=== PATIENT | female | born 1980 | race Caucasian/White ===

== ENCOUNTER 2017-06-10 17:00 | Emergency (ER) | payer OTHER ==
[~2017-06-10] VITALS: Ht 167.6 cm; Wt 63.5 kg
[~2017-06-10 17:00] MED LIST: ACET325 PO; ALBU90OI INH; ALBU90OI6 INH; ALPR1 PO; AMOCLA875 PO; AMOX875 PO; ARIP10 PO; AZIT500 PO; Amoxicillin875 MG PO; Bactrim Ds Tab1 EACH PO; CEPH500 PO; CLON.1 PO; CLON.5 PO; CLON1 PO; CRUTCH3 USE; CYMBALTA; Cleocin HCl150 MG PO; DIAZ2 PO; DIPH50 PO; DULO30 PO; GABA100 PO; GABA600 PO; GABA800 PO; GABAPENTIN PO; HYDHCL25 PO; Humalog100 UNIT/3; INSDET100 SC; INSDET100 SUBQ; INSLI100I SUBQ; INSR10I SUBQ; INSU100I6; INSULANI SUBQ; INSULANPEN SC; INSULISPEN SUBQ; Ibuprofen Ib200 MG PO; Klonopin0.5 MG PO; LISI5 PO; LOPE2C PO; Lisinopril2.5 MG; METF500 PO; METO5A PO; METPRE4DP PO; Mucinex600 MG PO; NAPR500 PO; NICO21TP TOP; Novolog Fl100 UNIT/1; Novolog Fl100 UNIT/1 SC; ONDA4 PO; Oxycodone-Apap1 EAC3 PO; PROM25 PO; Percocet 5-3251 EACH PO; Prednisone20 MG PO; Pyridium100 MG PO; TRAM50 PO; Ultram50 MG PO; Valium5 MG PO; Zofran Odt4 MG SL
[2017-06-10 17:35] LABS: Calcium, Ionized (POC) 1.18 mmol/L (1.10-1.46); Chloride (POC) 99 mmol/L (98-108); Creatinine (POC) 0.4 mg/dL (0.6-1.0); Glucose (ISTAT POC) 369 mg/dL (70-99); Hemoglobin (POC) 11.9 g/dL (12.0-16.0); Potassium (POC) 4.5 mmol/L (3.5-5.5); Sodium (POC) 135 mmol/L (135-148); Total CO2 (POC) 27 mmol/L (21-32)
[2018-05-07] MEDS ORDERED: Celexa10 MG PO (10:38)
[2018-05-07] MEDS ORDERED: GI COCKTAIL PO (11:13)
[2018-05-07] MEDS ORDERED: Novolog Fl100 UNIT/1 SC (11:15)
[2018-05-07] MEDS ORDERED: PANT40 PO (11:16)
== END 2017-06-10 18:44 | disposition home or self-care (01) ==
LOC: ER 17:00
PROVIDERS: Emergency Medicine
DX: G40.909 Epilepsy, unspecified, not intractable, without status epilepticus (principal); Z88.5 Allergy status to narcotic agent; Z79.899 Other long term (current) drug therapy; Z79.2 Long term (current) use of antibiotics; Z79.4 Long term (current) use of insulin; E10.40 Type 1 diabetes mellitus with diabetic neuropathy, unspecified; J45.909 Unspecified asthma, uncomplicated; Z87.891 Personal history of nicotine dependence
CPT/HCPCS: 80047; 81000; 81025; 82947; 85014; 96361; 96374; 99283; J2405

== ENCOUNTER 2017-07-12 16:24 | Inpatient (IN) | payer OTHER ==
[~2017-07-12] VITALS: Ht 172.7 cm; Wt 63.6 kg
[2017-07-12 17:40] LABS: Calcium, Ionized (POC) 1.12 mmol/L (1.10-1.46); Chloride (POC) 104 mmol/L (98-108); Creatinine (POC) 0.4 mg/dL (0.6-1.0); Glucose (ISTAT POC) 691 mg/dL (70-99); Hemoglobin (POC) 18.7 g/dL (12.0-16.0); Potassium (POC) 4.8 mmol/L (3.5-5.5); Sodium (POC) 128 mmol/L (135-148); Total CO2 (POC) 7 mmol/L (21-32)
[2017-07-12 17:50] LABS: EOSINOPHILS ABSOLUTE AUTO 0.06 K/mm3 (0.00-0.68); EOSINOPHILS PERCENT AUTO 0 % (0-6); Hematocrit 51.6 % (33.0-51.0); Hemoglobin 16.1 g/dL (11.5-16.0); IMMATURE GRAN ABSOLUTE AUTO 1.87 K/mm3 (0.00-0.10); IMMATURE GRAN PERCENT AUTO 6 % (0-1); LYMPHOCYTES ABSOLUTE AUTO 5.35 K/mm3 (0.84-5.20); LYMPHOCYTES PERCENT AUTO 16 % (21-46); MONOCYTES ABSOLUTE AUTO 2.98 K/mm3 (0.16-1.47); MONOCYTES PERCENT AUTO 9 % (4-13); Mean Corpuscular HGB 30.3 pg (26.0-34.0); Mean Corpuscular HGB Conc 31.2 g/dL (31.5-36.5); Mean Corpuscular Volume 97 fL (80-100); Mean Platelet Volume 11.1 fL (9.1-12.4); NEUTROPHILS ABSOLUTE AUTO 23.45 K/mm3 (1.96-9.15); NEUTROPHILS PERCENT AUTO 69 % (41-73); Platelet Count 348 K/mm3 (150-400); RDW Standard Deviation 43.6 fL (35.1-46.3); Red Blood Cell Count 5.31 M/mm3 (3.80-5.20)
[2017-07-12 17:52] LABS: BASOPHILS ABSOLUTE AUTO 0.09 K/mm3 (0.00-0.23); BASOPHILS PERCENT AUTO 0 % (0-2)
[2017-07-12 18:00] LABS: Source, Urine Clean Catch
[2017-07-12 18:04] LABS: Appearance, Urine Clear (Clear); Bilirubin, Urine Neg (Neg); Blood, Urine 2+ (Neg); Color, Urine Yellow (P-Yellow); Glucose Qualitative, Urine 4+ (Neg); Ketones, Urine 4+ (Neg); Leukocyte Esterase, Urine Neg (Neg); Nitrite, Urine Neg (Neg); Protein, Urine 2+ (Neg); Urobilinogen, Urine NORM (Normal)
[2017-07-12 18:09] LABS: BAND PERCENT MAN 4 % (0-8); BASOPHILS PERCENT MAN 0 % (0-2); EOSINOPHILS PERCENT MAN 0 % (0-6); LYMPHOCYTES ABSOLUTE MAN 6.42 K/mm3 (0.84-5.20); LYMPHOCYTES PERCENT MAN 19 % (21-46); METAMYELOCYTE ABSOLUTE MAN 0.33 K/mm3 (0.00-0.00); METAMYELOCYTE PERCENT MAN 1 % (0-0); MONOCYTES ABSOLUTE MAN 3.04 K/mm3 (0.16-1.47); MONOCYTES PERCENT MAN 9 % (4-13); NEUTROPHILS ABSOLUTE MAN 23.99 K/mm3 (1.96-9.15); SEG NEUTROPHILS PERCENT MAN 67 % (41-73); TOTAL CELLS COUNTED 100
[2017-07-12 18:12] LABS: Bacteria Few /hpf; Red Blood Cells, Urine 0-2 /hpf (0-2); Squamous Epithelial Cells Not Seen /hpf (Few); White Blood Cells, Urine 0-2 /hpf (0-5)
[2017-07-12 18:33] LABS: Alanine Aminotransfer (ALT/SGP 35 U/L (12-78); Albumin, Blood 4.1 g/dL (3.4-5.0); Alk Phos 138 U/L (50-136); Anion Gap 29 mmol/L (6-16); Aspartate Aminotrans (AST/SGOT 24 U/L (12-37); Beta-hydroxybutyrate 97.2 mg/dL (0.2-2.8); Bilirubin, Total 0.3 mg/dL (0.1-1.0); Blood Urea Nitrogen 25 mg/dL (8-24); Bun/Creatinine Ratio 44.3 (12.0-20.0); CO2, Blood 3 mmol/L (21-32); Calcium, Blood 8.2 mg/dL (8.5-10.1); Chloride, Blood 95 mmol/L (98-108); Creatinine, Blood 0.56 mg/dL (0.40-1.00); Globulin, Blood 4.3 g/dL (2.2-4.0); Glomerular Filtration Rate >60 (60-); Glucose, Blood 726 mg/dL (70-99); Phosphorus, Blood 4.5 mg/dL (2.5-4.9); Potassium, Blood 4.7 mmol/L (3.5-5.5); Sodium, Blood 127 mmol/L (136-145); Total Protein, Blood 8.4 g/dL (6.4-8.2)
[2017-07-12 20:00] LABS: Glucose (ISTAT POC) 555 mg/dL (70-99)
[2017-07-12 20:22] LABS: Influenza A Negative (NEGATIVE); Influenza B Negative (NEGATIVE)
[2017-07-12 20:28] LABS: Anion Gap 25 mmol/L (6-16); Blood Urea Nitrogen 24 mg/dL (8-24); CO2, Blood 2 mmol/L (21-32); Calcium, Blood 7.4 mg/dL (8.5-10.1); Chloride, Blood 103 mmol/L (98-108); Creatinine, Blood 0.45 mg/dL (0.40-1.00); Glomerular Filtration Rate >60 (60-); Glucose, Blood 536 mg/dL (70-99); Potassium, Blood 5.1 mmol/L (3.5-5.5); Sodium, Blood 130 mmol/L (136-145)
[2017-07-12 20:46] LABS: U Amphetamine Screen Not Detected; U Barbituate Screen Not Detected; U Benzodiazapine Screen Not Detected; U Buprenorphine Screen Not Detected; U Cannabinoids Screen Not Detected; U Cocaine Screen Not Detected; U Methadone Screen Not Detected; U Methamphetamine Screen Not Detected; U Opiates Screen Not Detected; U Oxycodone Screen Not Detected; U Phencyclidine Screen Not Detected; U Propoxyphene Screen Not Detected
[2017-07-13 00:29] LABS: Anion Gap 18 mmol/L (6-16); Blood Urea Nitrogen 19 mg/dL (8-24); Bun/Creatinine Ratio 48.3 (12.0-20.0); CO2, Blood 7 mmol/L (21-32); Calcium, Blood 6.4 mg/dL (8.5-10.1); Chloride, Blood 111 mmol/L (98-108); Creatinine, Blood 0.39 mg/dL (0.40-1.00); Glomerular Filtration Rate >60 (60-); Glucose, Blood 257 mg/dL (70-99); Sodium, Blood 136 mmol/L (136-145)
[2017-07-13 02:38] LABS: Anion Gap 17 mmol/L (6-16); Blood Urea Nitrogen 15 mg/dL (8-24); CO2, Blood 9 mmol/L (21-32); Calcium, Blood 6.6 mg/dL (8.5-10.1); Chloride, Blood 111 mmol/L (98-108); Creatinine, Blood 0.37 mg/dL (0.40-1.00); Glomerular Filtration Rate >60 (60-); Glucose, Blood 261 mg/dL (70-99); Potassium, Blood 3.7 mmol/L (3.5-5.5); Sodium, Blood 137 mmol/L (136-145)
[2017-07-13 04:40] LABS: Base Excess Venous -16.1 mmol/L; Bicarbonate Venous 13.4 mmol/L (24.0-30.0); PCO2 Venous 25.6 mmHg (38-42); PO2 Venous 47.2 mmHg (38-42); pH Blood Venous 7.25 (7.34-7.37)
[2017-07-13 04:44] LABS: BASOPHILS ABSOLUTE AUTO 0.09 K/mm3 (0.00-0.23); BASOPHILS PERCENT AUTO 0 % (0-2); EOSINOPHILS ABSOLUTE AUTO 0.02 K/mm3 (0.00-0.68); EOSINOPHILS PERCENT AUTO 0 % (0-6); Hematocrit 35.3 % (33.0-51.0); Hemoglobin 12.2 g/dL (11.5-16.0); IMMATURE GRAN ABSOLUTE AUTO 0.63 K/mm3 (0.00-0.10); IMMATURE GRAN PERCENT AUTO 3 % (0-1); LYMPHOCYTES ABSOLUTE AUTO 3.01 K/mm3 (0.84-5.20); LYMPHOCYTES PERCENT AUTO 15 % (21-46); MONOCYTES ABSOLUTE AUTO 2.02 K/mm3 (0.16-1.47); MONOCYTES PERCENT AUTO 10 % (4-13); Mean Corpuscular HGB 30.7 pg (26.0-34.0); Mean Corpuscular HGB Conc 34.6 g/dL (31.5-36.5); Mean Platelet Volume 10.4 fL (9.1-12.4); NEUTROPHILS ABSOLUTE AUTO 15.06 K/mm3 (1.96-9.15); NEUTROPHILS PERCENT AUTO 72 % (41-73); Platelet Count 253 K/mm3 (150-400); RDW Coefficient Variation 11.6 % (11.7-14.2); RDW Standard Deviation 37.6 fL (35.1-46.3); Red Blood Cell Count 3.97 M/mm3 (3.80-5.20); White Blood Cell Count 20.83 K/mm3 (4.00-11.30)
[2017-07-13 04:59] LABS: Mean Corpuscular Volume 89 fL (80-100)
[2017-07-13 05:07] LABS: Amylase, Blood 16 U/L (25-115); Anion Gap 13 mmol/L (6-16); Blood Urea Nitrogen 12 mg/dL (8-24); Bun/Creatinine Ratio 29.8 (12.0-20.0); CO2, Blood 13 mmol/L (21-32); Calcium, Blood 6.6 mg/dL (8.5-10.1); Chloride, Blood 111 mmol/L (98-108); Glomerular Filtration Rate >60 (60-); Glucose, Blood 262 mg/dL (70-99); Magnesium, Blood 1.4 mg/dL (1.6-2.4); Potassium, Blood 3.3 mmol/L (3.5-5.5); Sodium, Blood 137 mmol/L (136-145)
[2017-07-13 05:13] LABS: Beta-hydroxybutyrate 21.6 mg/dL (0.2-2.8)
[2017-07-13 05:48] LABS: Osmolality, Serum 294 mos/KG (275-300)
[2017-07-13 05:55] LABS: Phosphorus, Blood 0.6 mg/dL (2.5-4.9)
[2017-07-13 06:36] LABS: Anion Gap 11 mmol/L (6-16); Blood Urea Nitrogen 12 mg/dL (8-24); Bun/Creatinine Ratio 30.6 (12.0-20.0); CO2, Blood 14 mmol/L (21-32); Calcium, Blood 6.9 mg/dL (8.5-10.1); Chloride, Blood 112 mmol/L (98-108); Creatinine, Blood 0.39 mg/dL (0.40-1.00); Glomerular Filtration Rate >60 (60-); Glucose, Blood 243 mg/dL (70-99); Potassium, Blood 3.1 mmol/L (3.5-5.5); Sodium, Blood 137 mmol/L (136-145)
[2017-07-13 09:03] LABS: Anion Gap 10 mmol/L (6-16); Blood Urea Nitrogen 11 mg/dL (8-24); Bun/Creatinine Ratio 32.1 (12.0-20.0); CO2, Blood 16 mmol/L (21-32); Calcium, Blood 7.1 mg/dL (8.5-10.1); Chloride, Blood 112 mmol/L (98-108); Creatinine, Blood 0.34 mg/dL (0.40-1.00); Glomerular Filtration Rate >60 (60-); Glucose, Blood 209 mg/dL (70-99); Potassium, Blood 2.9 mmol/L (3.5-5.5); Sodium, Blood 138 mmol/L (136-145)
[2017-07-13 12:49] LABS: Ketones, Urine 3+ (Neg)
[2017-07-13 16:56] LABS: Anion Gap 9 mmol/L (6-16); Blood Urea Nitrogen 8 mg/dL (8-24); Bun/Creatinine Ratio 23.1 (12.0-20.0); CO2, Blood 17 mmol/L (21-32); Calcium, Blood 7.4 mg/dL (8.5-10.1); Chloride, Blood 115 mmol/L (98-108); Creatinine, Blood 0.35 mg/dL (0.40-1.00); Glomerular Filtration Rate >60 (60-); Glucose, Blood 247 mg/dL (70-99); Potassium, Blood 3.4 mmol/L (3.5-5.5); Sodium, Blood 141 mmol/L (136-145)
[2017-07-14 06:17] LABS: Anion Gap 6 mmol/L (6-16); Blood Urea Nitrogen 5 mg/dL (8-24); Bun/Creatinine Ratio 12.9 (12.0-20.0); CO2, Blood 24 mmol/L (21-32); Calcium, Blood 7.9 mg/dL (8.5-10.1); Chloride, Blood 114 mmol/L (98-108); Creatinine, Blood 0.39 mg/dL (0.40-1.00); Glomerular Filtration Rate >60 (60-); Glucose, Blood 99 mg/dL (70-99); Magnesium, Blood 1.8 mg/dL (1.6-2.4); Phosphorus, Blood 1.5 mg/dL (2.5-4.9); Potassium, Blood 2.7 mmol/L (3.5-5.5); Sodium, Blood 144 mmol/L (136-145)
[2017-07-15 05:48] LABS: Magnesium, Blood 1.7 mg/dL (1.6-2.4)
[2017-07-15 05:52] LABS: Albumin, Blood 2.6 g/dL (3.4-5.0); Anion Gap 7 mmol/L (6-16); Blood Urea Nitrogen 6 mg/dL (8-24); Bun/Creatinine Ratio 15.8 (12.0-20.0); CO2, Blood 28 mmol/L (21-32); Calcium, Blood 8.3 mg/dL (8.5-10.1); Chloride, Blood 108 mmol/L (98-108); Creatinine, Blood 0.38 mg/dL (0.40-1.00); Glomerular Filtration Rate >60 (60-); Phosphorus, Blood 2.5 mg/dL (2.5-4.9); Potassium, Blood 2.7 mmol/L (3.5-5.5); Sodium, Blood 143 mmol/L (136-145)
[2017-07-15 05:55] LABS: Glucose, Blood 48 mg/dL (70-99)
[2017-07-15] MEDS ORDERED: BASAGLAR K100 UNIT/1 SC (11:52)
[2018-05-07] MEDS ORDERED: Celexa10 MG PO (10:38)
[2018-05-07] MEDS ORDERED: GI COCKTAIL PO (11:13)
[2018-05-07] MEDS ORDERED: Novolog Fl100 UNIT/1 SC (11:15)
[2018-05-07] MEDS ORDERED: PANT40 PO (11:16)
== END 2017-07-15 22:03 | disposition left against medical advice (07) | DRG 871 ==
LOC: ER 16:24 → ICUE 18:12 → ICUW 18:12 → ICUE 19:22 → MEDS 19:37 → ICUE 07-13 01:42 → MEDS 07-14 02:05
PROVIDERS: Emergency Medicine; Family Medicine; Internal Medicine; Physician Assistant
PROC: 02HV33Z Insertion of Infusion Device into Superior Vena Cava, Percutaneous Approach (ICD-10-PCS; principal; 2017-07-12)
DX: A41.9 Sepsis, unspecified organism (principal); E10.10 Type 1 diabetes mellitus with ketoacidosis without coma; E10.40 Type 1 diabetes mellitus with diabetic neuropathy, unspecified; E83.39 Other disorders of phosphorus metabolism; E87.1 Hypo-osmolality and hyponatremia; R65.20 Severe sepsis without septic shock; F41.9 Anxiety disorder, unspecified; E86.0 Dehydration; E87.6 Hypokalemia; E83.42 Hypomagnesemia; G25.81 Restless legs syndrome; I10 Essential (primary) hypertension; F63.9 Impulse disorder, unspecified; F17.200 Nicotine dependence, unspecified, uncomplicated; Z86.14 Personal history of Methicillin resistant Staphylococcus aureus infection; Z88.5 Allergy status to narcotic agent; Z79.4 Long term (current) use of insulin; Z79.899 Other long term (current) drug therapy
CPT/HCPCS: 36415; 36556; 71045; 80047; 80048; 80053; 80069; 81001; 81003; 81025; 82010; 82150; 82803; 82947; 83036; 83690; 83735; 83930; 84100; 84145; 85014; 85025; 87077; 87081; 87086; 87804; 93005; 93010; 96374; 99285; C1751; J1650; J1815; J2001; J2060; J2405; J2550; J3475; J3480; J7030; J7040; J7042; J7060

== ENCOUNTER 2018-01-22 10:52 | Observation (INO) | payer OTHER ==
[~2018-01-22] VITALS: Ht 160 cm; Wt 66.2 kg
[~2018-01-22 10:52] MED LIST changes: +BASAGLAR K100 UNIT/1 SC
[2018-01-22 11:33] LABS: BASOPHILS ABSOLUTE AUTO 0.06 K/mm3 (0.00-0.23); BASOPHILS PERCENT AUTO 1 % (0-2); EOSINOPHILS ABSOLUTE AUTO 0.11 K/mm3 (0.00-0.68); EOSINOPHILS PERCENT AUTO 1 % (0-6); Hematocrit 51.7 % (33.0-51.0); IMMATURE GRAN ABSOLUTE AUTO 0.03 K/mm3 (0.00-0.10); IMMATURE GRAN PERCENT AUTO 0 % (0-1); LYMPHOCYTES ABSOLUTE AUTO 4.83 K/mm3 (0.84-5.20); LYMPHOCYTES PERCENT AUTO 46 % (21-46); MONOCYTES ABSOLUTE AUTO 0.63 K/mm3 (0.16-1.47); MONOCYTES PERCENT AUTO 6 % (4-13); Mean Corpuscular HGB 29.8 pg (26.0-34.0); Mean Corpuscular HGB Conc 32.9 g/dL (31.5-36.5); Mean Corpuscular Volume 91 fL (80-100); Mean Platelet Volume 11.4 fL (9.1-12.4); NEUTROPHILS PERCENT AUTO 46 % (41-73); Platelet Count 337 K/mm3 (150-400); RDW Coefficient Variation 12.2 % (11.7-14.2); RDW Standard Deviation 40.8 fL (35.1-46.3); White Blood Cell Count 10.56 K/mm3 (4.00-11.30)
[2018-01-22 12:15] LABS: Base Excess Venous -8.2 mmol/L; Bicarbonate Venous 18.2 mmol/L (24.0-30.0); PO2 Venous 177 mmHg (38-42)
[2018-01-22 12:17] LABS: pH Blood Venous 7.26 (7.34-7.37)
[2018-01-22 13:00] LABS: Chloride (POC) 99 mmol/L (98-108); Creatinine (POC) 0.3 mg/dL (0.6-1.0); Glucose (ISTAT POC) 439 mg/dL (70-99); Hemoglobin (POC) 15.6 g/dL (12.0-16.0); Sodium (POC) 132 mmol/L (135-148); Total CO2 (POC) 20 mmol/L (21-32)
[2018-01-22 13:13] LABS: Source, Urine Clean Catch
[2018-01-22 13:17] LABS: Bilirubin, Urine Neg (Neg); Blood, Urine Neg (Neg); Glucose Qualitative, Urine 4+ (Neg); Ketones, Urine 3+ (Neg); Leukocyte Esterase, Urine Neg (Neg); Nitrite, Urine Neg (Neg); Protein, Urine Neg (Neg); Urobilinogen, Urine NORM (Normal)
[2018-01-22 13:23] LABS: Appearance, Urine Clear (Clear); Color, Urine Yellow (P-Yellow)
[2018-01-22 13:37] LABS: U Amphetamine Screen Not Detected; U Barbituate Screen Not Detected; U Benzodiazapine Screen Not Detected; U Buprenorphine Screen Not Detected; U Cannabinoids Screen DETECTED; U Cocaine Screen Not Detected; U Methadone Screen Not Detected; U Methamphetamine Screen Not Detected; U Opiates Screen Not Detected; U Oxycodone Screen Not Detected; U Phencyclidine Screen Not Detected; U Propoxyphene Screen Not Detected
[2018-01-22 14:34] LABS: Alanine Aminotransfer (ALT/SGP 40 U/L (12-78); Albumin, Blood 3.4 g/dL (3.4-5.0); Albumin/Globulin Ratio 0.9 (0.8-1.8); Alk Phos 96 U/L (50-136); Anion Gap 13 mmol/L (6-16); Aspartate Aminotrans (AST/SGOT 26 U/L (12-37); Beta HCG, Quantitative, Serum <1 mIU/mL (0-3); Bilirubin, Total 0.4 mg/dL (0.1-1.0); Blood Urea Nitrogen 25 mg/dL (8-24); Bun/Creatinine Ratio 49.3 (12.0-20.0); CO2, Blood 18 mmol/L (21-32); Calcium, Blood 8.2 mg/dL (8.5-10.1); Chloride, Blood 96 mmol/L (98-108); Creatinine, Blood 0.51 mg/dL (0.40-1.00); Globulin, Blood 3.9 g/dL (2.2-4.0); Glomerular Filtration Rate >60 (60-); Glucose, Blood 525 mg/dL (70-99); Potassium, Blood 4.2 mmol/L (3.5-5.5); Sodium, Blood 127 mmol/L (136-145); Total Protein, Blood 7.3 g/dL (6.4-8.2)
[2018-01-22 14:39] LABS: Beta-hydroxybutyrate 30.1 mg/dL (0.2-2.8)
[2018-01-22 14:40] LABS: Calcium, Ionized (POC) 0.98 mmol/L (1.10-1.46); Chloride (POC) 106 mmol/L (98-108); Creatinine (POC) 0.3 mg/dL (0.6-1.0); Glucose (ISTAT POC) 243 mg/dL (70-99); Hemoglobin (POC) 14.6 g/dL (12.0-16.0); Potassium (POC) 3.8 mmol/L (3.5-5.5); Sodium (POC) 137 mmol/L (135-148); Total CO2 (POC) 19 mmol/L (21-32)
[2018-01-22 15:33] LABS: Base Excess Venous -6.7 mmol/L; Bicarbonate Venous 19.3 mmol/L (24.0-30.0); PO2 Venous 67.2 mmHg (38-42); pH Blood Venous 7.31 (7.34-7.37)
[2018-01-22 18:48] LABS: Anion Gap 10 mmol/L (6-16); Blood Urea Nitrogen 18 mg/dL (8-24); Bun/Creatinine Ratio 36.1 (12.0-20.0); CO2, Blood 19 mmol/L (21-32); Calcium, Blood 7.7 mg/dL (8.5-10.1); Chloride, Blood 106 mmol/L (98-108); Glomerular Filtration Rate >60 (60-); Glucose, Blood 313 mg/dL (70-99); Potassium, Blood 4.1 mmol/L (3.5-5.5); Sodium, Blood 135 mmol/L (136-145)
[2018-01-22 23:02] LABS: Anion Gap 6 mmol/L (6-16); Blood Urea Nitrogen 19 mg/dL (8-24); Bun/Creatinine Ratio 38.2 (12.0-20.0); CO2, Blood 25 mmol/L (21-32); Calcium, Blood 7.8 mg/dL (8.5-10.1); Chloride, Blood 101 mmol/L (98-108); Glomerular Filtration Rate >60 (60-); Glucose, Blood 379 mg/dL (70-99); Potassium, Blood 4.1 mmol/L (3.5-5.5); Sodium, Blood 132 mmol/L (136-145)
[2018-01-23 06:14] LABS: BASOPHILS ABSOLUTE AUTO 0.05 K/mm3 (0.00-0.23); BASOPHILS PERCENT AUTO 1 % (0-2); EOSINOPHILS ABSOLUTE AUTO 0.12 K/mm3 (0.00-0.68); EOSINOPHILS PERCENT AUTO 2 % (0-6); Hemoglobin 12.3 g/dL (11.5-16.0); IMMATURE GRAN ABSOLUTE AUTO 0.01 K/mm3 (0.00-0.10); IMMATURE GRAN PERCENT AUTO 0 % (0-1); LYMPHOCYTES PERCENT AUTO 49 % (21-46); MONOCYTES PERCENT AUTO 8 % (4-13); Mean Corpuscular HGB 30.4 pg (26.0-34.0); Mean Corpuscular HGB Conc 34.2 g/dL (31.5-36.5); Mean Corpuscular Volume 89 fL (80-100); Mean Platelet Volume 10.1 fL (9.1-12.4); NEUTROPHILS ABSOLUTE AUTO 2.62 K/mm3 (1.96-9.15); NEUTROPHILS PERCENT AUTO 40 % (41-73); Platelet Count 230 K/mm3 (150-400); RDW Coefficient Variation 11.9 % (11.7-14.2); Red Blood Cell Count 4.04 M/mm3 (3.80-5.20)
[2018-01-23 06:28] LABS: Anion Gap 7 mmol/L (6-16); Blood Urea Nitrogen 18 mg/dL (8-24); Bun/Creatinine Ratio 39.6 (12.0-20.0); CO2, Blood 25 mmol/L (21-32); Calcium, Blood 8.6 mg/dL (8.5-10.1); Chloride, Blood 107 mmol/L (98-108); Creatinine, Blood 0.45 mg/dL (0.40-1.00); Glomerular Filtration Rate >60 (60-); Glucose, Blood 244 mg/dL (70-99); Potassium, Blood 3.6 mmol/L (3.5-5.5); Sodium, Blood 139 mmol/L (136-145)
[2018-01-23] MEDS ORDERED: ACET325 PO (10:33)
== END 2018-01-23 11:16 | disposition home or self-care (01) ==
LOC: ER 10:52 → MEDS 10:53 → ENPENDDIS 01-23 10:00 → MEDS 01-23 11:16
PROVIDERS: Emergency Medicine; Internal Medicine
DX: E10.65 Type 1 diabetes mellitus with hyperglycemia (principal); I10 Essential (primary) hypertension; E10.40 Type 1 diabetes mellitus with diabetic neuropathy, unspecified; J44.9 Chronic obstructive pulmonary disease, unspecified; F41.9 Anxiety disorder, unspecified; F17.210 Nicotine dependence, cigarettes, uncomplicated; Z86.69 Personal history of other diseases of the nervous system and sense organs; Z88.5 Allergy status to narcotic agent; Z79.4 Long term (current) use of insulin; Z79.899 Other long term (current) drug therapy
CPT/HCPCS: 36415; 71045; 80047; 80048; 80053; 81003; 82010; 82803; 82947; 84702; 85014; 85025; 93005; 93010; 96372; 99285-25; G0378; J1650; J1815; J7030

== ENCOUNTER 2018-02-17 03:08 | Inpatient (IN) | payer OTHER ==
[~2018-02-17] VITALS: Ht 167.6 cm; Wt 59.8 kg
[2018-02-17 03:24] LABS: BASOPHILS ABSOLUTE AUTO 0.11 K/mm3 (0.00-0.23); BASOPHILS PERCENT AUTO 1 % (0-2); EOSINOPHILS ABSOLUTE AUTO 0.02 K/mm3 (0.00-0.68); EOSINOPHILS PERCENT AUTO 0 % (0-6); Hematocrit 49.4 % (33.0-51.0); Hemoglobin 16.5 g/dL (11.5-16.0); IMMATURE GRAN ABSOLUTE AUTO 0.17 K/mm3 (0.00-0.10); IMMATURE GRAN PERCENT AUTO 1 % (0-1); LYMPHOCYTES PERCENT AUTO 21 % (21-46); MONOCYTES ABSOLUTE AUTO 1.08 K/mm3 (0.16-1.47); MONOCYTES PERCENT AUTO 5 % (4-13); Mean Corpuscular HGB 29.6 pg (26.0-34.0); Mean Corpuscular HGB Conc 33.4 g/dL (31.5-36.5); Mean Corpuscular Volume 89 fL (80-100); Mean Platelet Volume 10.5 fL (9.1-12.4); NEUTROPHILS PERCENT AUTO 73 % (41-73); Platelet Count 386 K/mm3 (150-400); RDW Coefficient Variation 11.9 % (11.7-14.2); RDW Standard Deviation 38.7 fL (35.1-46.3); Red Blood Cell Count 5.57 M/mm3 (3.80-5.20); White Blood Cell Count 20.78 K/mm3 (4.00-11.30)
[2018-02-17 03:25] LABS: Calcium, Ionized (POC) 1.08 mmol/L (1.10-1.46); Chloride (POC) 95 mmol/L (98-108); Creatinine (POC) 0.6 mg/dL (0.6-1.0); Glucose (ISTAT POC) 505 mg/dL (70-99); Potassium (POC) 4.6 mmol/L (3.5-5.5); Sodium (POC) 130 mmol/L (135-148); Total CO2 (POC) 15 mmol/L (21-32)
[2018-02-17 03:39] LABS: Alanine Aminotransfer (ALT/SGP 25 U/L (12-78); Albumin, Blood 3.9 g/dL (3.4-5.0); Albumin/Globulin Ratio 0.8 (0.8-1.8); Alk Phos 127 U/L (50-136); Anion Gap 24 mmol/L (6-16); Aspartate Aminotrans (AST/SGOT 18 U/L (12-37); Bilirubin, Total 0.5 mg/dL (0.1-1.0); Blood Urea Nitrogen 25 mg/dL (8-24); Bun/Creatinine Ratio 34.3 (12.0-20.0); CO2, Blood 14 mmol/L (21-32); Chloride, Blood 91 mmol/L (98-108); Creatinine, Blood 0.73 mg/dL (0.40-1.00); Globulin, Blood 4.6 g/dL (2.2-4.0); Glomerular Filtration Rate >60 (60-); Glucose, Blood 492 mg/dL (70-99); Potassium, Blood 4.4 mmol/L (3.5-5.5); Sodium, Blood 129 mmol/L (136-145); Total Protein, Blood 8.5 g/dL (6.4-8.2)
[2018-02-17 06:08] LABS: U Amphetamine Screen Not Detected; U Barbituate Screen Not Detected; U Benzodiazapine Screen Not Detected; U Buprenorphine Screen Not Detected; U Cannabinoids Screen Not Detected; U Cocaine Screen Not Detected; U Methadone Screen Not Detected; U Methamphetamine Screen Not Detected; U Opiates Screen Not Detected; U Oxycodone Screen Not Detected; U Phencyclidine Screen Not Detected; U Propoxyphene Screen Not Detected
[2018-02-17 10:48] LABS: Anion Gap 16 mmol/L (6-16); Blood Urea Nitrogen 23 mg/dL (8-24); CO2, Blood 16 mmol/L (21-32); Calcium, Blood 7.4 mg/dL (8.5-10.1); Chloride, Blood 104 mmol/L (98-108); Creatinine, Blood 0.51 mg/dL (0.40-1.00); Glomerular Filtration Rate >60 (60-); Glucose, Blood 490 mg/dL (70-99); Potassium, Blood 3.4 mmol/L (3.5-5.5); Sodium, Blood 136 mmol/L (136-145)
[2018-02-17 11:49] LABS: Glucose, Blood 233 mg/dL (70-99)
[2018-02-17 15:08] LABS: Anion Gap 10 mmol/L (6-16); Blood Urea Nitrogen 23 mg/dL (8-24); Bun/Creatinine Ratio 54.4 (12.0-20.0); CO2, Blood 20 mmol/L (21-32); Chloride, Blood 107 mmol/L (98-108); Creatinine, Blood 0.42 mg/dL (0.40-1.00); Glomerular Filtration Rate >60 (60-); Glucose, Blood 218 mg/dL (70-99); Potassium, Blood 4.2 mmol/L (3.5-5.5); Sodium, Blood 137 mmol/L (136-145)
[2018-02-17 18:20] LABS: Source, Urine Catheter
[2018-02-17 18:23] LABS: Bilirubin, Urine Neg (Neg); Blood, Urine Neg (Neg); Glucose Qualitative, Urine 4+ (Neg); Ketones, Urine 4+ (Neg); Leukocyte Esterase, Urine Neg (Neg); Nitrite, Urine Neg (Neg); Protein, Urine 2+ (Neg); Specific Gravity, Urine 1.015 (1.003-1.022); Urobilinogen, Urine NORM (Normal)
[2018-02-17 18:37] LABS: Appearance, Urine Clear (Clear); Color, Urine Yellow (P-Yellow)
[2018-02-17 18:38] LABS: Bacteria Few /hpf; Red Blood Cells, Urine 0-2 /hpf (0-2); Squamous Epithelial Cells Mod /hpf (Few); White Blood Cells, Urine 0-2 /hpf (0-5)
[2018-02-17 20:24] LABS: Anion Gap 9 mmol/L (6-16); Blood Urea Nitrogen 19 mg/dL (8-24); Bun/Creatinine Ratio 40.3 (12.0-20.0); CO2, Blood 22 mmol/L (21-32); Calcium, Blood 8.4 mg/dL (8.5-10.1); Chloride, Blood 106 mmol/L (98-108); Creatinine, Blood 0.47 mg/dL (0.40-1.00); Glomerular Filtration Rate >60 (60-); Glucose, Blood 128 mg/dL (70-99); Potassium, Blood 3.8 mmol/L (3.5-5.5); Sodium, Blood 137 mmol/L (136-145)
[2018-02-17 22:45] LABS: Anion Gap 10 mmol/L (6-16); Blood Urea Nitrogen 18 mg/dL (8-24); Bun/Creatinine Ratio 36.8 (12.0-20.0); CO2, Blood 23 mmol/L (21-32); Calcium, Blood 8.2 mg/dL (8.5-10.1); Chloride, Blood 103 mmol/L (98-108); Creatinine, Blood 0.49 mg/dL (0.40-1.00); Glomerular Filtration Rate >60 (60-); Glucose, Blood 235 mg/dL (70-99); Potassium, Blood 3.7 mmol/L (3.5-5.5); Sodium, Blood 136 mmol/L (136-145)
[2018-02-18 04:27] LABS: BASOPHILS ABSOLUTE AUTO 0.03 K/mm3 (0.00-0.23); BASOPHILS PERCENT AUTO 0 % (0-2); EOSINOPHILS ABSOLUTE AUTO 0.02 K/mm3 (0.00-0.68); EOSINOPHILS PERCENT AUTO 0 % (0-6); Hematocrit 38.9 % (33.0-51.0); Hemoglobin 13.3 g/dL (11.5-16.0); IMMATURE GRAN ABSOLUTE AUTO 0.08 K/mm3 (0.00-0.10); IMMATURE GRAN PERCENT AUTO 1 % (0-1); LYMPHOCYTES ABSOLUTE AUTO 3.43 K/mm3 (0.84-5.20); LYMPHOCYTES PERCENT AUTO 19 % (21-46); MONOCYTES ABSOLUTE AUTO 1.28 K/mm3 (0.16-1.47); MONOCYTES PERCENT AUTO 7 % (4-13); Mean Corpuscular HGB Conc 34.2 g/dL (31.5-36.5); Mean Corpuscular Volume 88 fL (80-100); Mean Platelet Volume 10.2 fL (9.1-12.4); NEUTROPHILS ABSOLUTE AUTO 12.83 K/mm3 (1.96-9.15); NEUTROPHILS PERCENT AUTO 73 % (41-73); Platelet Count 295 K/mm3 (150-400); RDW Standard Deviation 38.9 fL (35.1-46.3); Red Blood Cell Count 4.43 M/mm3 (3.80-5.20); White Blood Cell Count 17.67 K/mm3 (4.00-11.30)
[2018-02-18 05:19] LABS: Alanine Aminotransfer (ALT/SGP 18 U/L (12-78); Albumin/Globulin Ratio 0.9 (0.8-1.8); Alk Phos 89 U/L (50-136); Anion Gap 8 mmol/L (6-16); Aspartate Aminotrans (AST/SGOT 12 U/L (12-37); Bilirubin, Total 0.6 mg/dL (0.1-1.0); Blood Urea Nitrogen 16 mg/dL (8-24); Bun/Creatinine Ratio 35.1 (12.0-20.0); CO2, Blood 24 mmol/L (21-32); Calcium, Blood 8.1 mg/dL (8.5-10.1); Chloride, Blood 103 mmol/L (98-108); Creatinine, Blood 0.46 mg/dL (0.40-1.00); Globulin, Blood 3.3 g/dL (2.2-4.0); Glomerular Filtration Rate >60 (60-); Glucose, Blood 247 mg/dL (70-99); Potassium, Blood 3.5 mmol/L (3.5-5.5); Sodium, Blood 135 mmol/L (136-145)
[2018-02-18 05:24] LABS: Total Protein, Blood 6.3 g/dL (6.4-8.2)
[2018-02-18 12:28] LABS: Source, Urine Clean Catch
[2018-02-18 12:36] LABS: Bilirubin, Urine Neg (Neg); Blood, Urine Neg (Neg); Glucose Qualitative, Urine 4+ (Neg); Ketones, Urine 3+ (Neg); Leukocyte Esterase, Urine Neg (Neg); Nitrite, Urine Neg (Neg); Protein, Urine Neg (Neg); Specific Gravity, Urine 1.015 (1.003-1.022); Urobilinogen, Urine NORM (Normal)
[2018-02-18 12:51] LABS: Appearance, Urine Hazy (Clear); Color, Urine Yellow (P-Yellow)
[2018-02-18 12:52] LABS: Squamous Epithelial Cells Few /hpf (Few)
[2018-02-18 12:53] LABS: Red Blood Cells, Urine Not Seen /hpf (0-2)
[2018-02-18 12:54] LABS: Bacteria Many /hpf
[2018-02-19 05:30] LABS: BASOPHILS ABSOLUTE AUTO 0.03 K/mm3 (0.00-0.23); BASOPHILS PERCENT AUTO 0 % (0-2); EOSINOPHILS ABSOLUTE AUTO 0.06 K/mm3 (0.00-0.68); EOSINOPHILS PERCENT AUTO 1 % (0-6); Hematocrit 34.8 % (33.0-51.0); Hemoglobin 11.8 g/dL (11.5-16.0); IMMATURE GRAN ABSOLUTE AUTO 0.03 K/mm3 (0.00-0.10); IMMATURE GRAN PERCENT AUTO 0 % (0-1); LYMPHOCYTES ABSOLUTE AUTO 3.15 K/mm3 (0.84-5.20); LYMPHOCYTES PERCENT AUTO 39 % (21-46); MONOCYTES ABSOLUTE AUTO 0.69 K/mm3 (0.16-1.47); MONOCYTES PERCENT AUTO 9 % (4-13); Mean Corpuscular HGB Conc 33.9 g/dL (31.5-36.5); Mean Corpuscular Volume 89 fL (80-100); Mean Platelet Volume 10.4 fL (9.1-12.4); NEUTROPHILS ABSOLUTE AUTO 4.08 K/mm3 (1.96-9.15); NEUTROPHILS PERCENT AUTO 51 % (41-73); Platelet Count 248 K/mm3 (150-400); RDW Coefficient Variation 12.3 % (11.7-14.2); RDW Standard Deviation 40.1 fL (35.1-46.3); Red Blood Cell Count 3.93 M/mm3 (3.80-5.20); White Blood Cell Count 8.04 K/mm3 (4.00-11.30)
[2018-02-19 06:02] LABS: Anion Gap 7 mmol/L (6-16); Blood Urea Nitrogen 16 mg/dL (8-24); Bun/Creatinine Ratio 36.4 (12.0-20.0); CO2, Blood 28 mmol/L (21-32); Calcium, Blood 8.4 mg/dL (8.5-10.1); Chloride, Blood 104 mmol/L (98-108); Creatinine, Blood 0.44 mg/dL (0.40-1.00); Glomerular Filtration Rate >60 (60-); Glucose, Blood 197 mg/dL (70-99); Potassium, Blood 3.3 mmol/L (3.5-5.5); Sodium, Blood 139 mmol/L (136-145)
[2018-02-19] MEDS ORDERED: NITR100CA PO (12:05)
[2018-02-19] MEDS ORDERED: ONDA4ODT SL (12:06)
[2018-02-19] MEDS ORDERED: POTCHL20ER PO (12:07)
[2018-02-19] MEDS ORDERED: PROM25S PR (12:08)
[2018-02-19] MEDS ORDERED: PROM25 PO (12:09)
== END 2018-02-19 13:53 | disposition home or self-care (01) | DRG 638 ==
LOC: ER 03:08 → ICUW 03:09 → ER 03:49 → ICUW 03:49 → MEDS 04:30 → ICUW 14:28 → MEDS 02-18 20:44 → ENPENDDIS 02-19 07:12 → EDPENDDIS 02-19 07:12 → MEDS 02-19 13:53
PROVIDERS: Emergency Medicine; Family Medicine; Hospitalist
DX: E10.10 Type 1 diabetes mellitus with ketoacidosis without coma (principal); E87.1 Hypo-osmolality and hyponatremia; N39.0 Urinary tract infection, site not specified; J45.909 Unspecified asthma, uncomplicated; E11.40 Type 2 diabetes mellitus with diabetic neuropathy, unspecified; I10 Essential (primary) hypertension; F12.90 Cannabis use, unspecified, uncomplicated; Z88.5 Allergy status to narcotic agent; Z91.14 Patient's other noncompliance with medication regimen; Z79.4 Long term (current) use of insulin; Z79.899 Other long term (current) drug therapy; Z86.14 Personal history of Methicillin resistant Staphylococcus aureus infection; Z87.891 Personal history of nicotine dependence
CPT/HCPCS: 36415; 71046; 80047; 80048; 80053; 81001; 82947; 83605; 83690; 85014; 85025; 87070; 87077; 87081; 87086; 87186; J1650; J1815; J2405; J2550; J3480; J7030; J7042

== ENCOUNTER 2018-02-24 18:01 | Inpatient (IN) | payer OTHER ==
[~2018-02-24] VITALS: Ht 170.2 cm; Wt 56.6 kg
[~2018-02-24 18:01] MED LIST changes: +NITR100CA PO; +ONDA4ODT SL; +POTCHL20ER PO; +PROM25S PR
[2018-02-24 18:56] LABS: Source, Urine Clean Catch
[2018-02-24 19:00] LABS: BASOPHILS ABSOLUTE AUTO 0.07 K/mm3 (0.00-0.23); BASOPHILS PERCENT AUTO 1 % (0-2); EOSINOPHILS ABSOLUTE AUTO 0.01 K/mm3 (0.00-0.68); EOSINOPHILS PERCENT AUTO 0 % (0-6); Hematocrit 48.4 % (33.0-51.0); Hemoglobin 15.7 g/dL (11.5-16.0); IMMATURE GRAN ABSOLUTE AUTO 0.06 K/mm3 (0.00-0.10); IMMATURE GRAN PERCENT AUTO 1 % (0-1); LYMPHOCYTES ABSOLUTE AUTO 2.96 K/mm3 (0.84-5.20); LYMPHOCYTES PERCENT AUTO 30 % (21-46); MONOCYTES ABSOLUTE AUTO 0.61 K/mm3 (0.16-1.47); MONOCYTES PERCENT AUTO 6 % (4-13); Mean Corpuscular HGB 30.2 pg (26.0-34.0); Mean Corpuscular HGB Conc 32.4 g/dL (31.5-36.5); Mean Platelet Volume 10.1 fL (9.1-12.4); NEUTROPHILS ABSOLUTE AUTO 6.27 K/mm3 (1.96-9.15); NEUTROPHILS PERCENT AUTO 63 % (41-73); Platelet Count 416 K/mm3 (150-400); RDW Coefficient Variation 11.9 % (11.7-14.2); RDW Standard Deviation 40.5 fL (35.1-46.3); White Blood Cell Count 9.98 K/mm3 (4.00-11.30)
[2018-02-24 19:03] LABS: Appearance, Urine Clear (Clear); Bilirubin, Urine Neg (Neg); Blood, Urine Neg (Neg); Color, Urine Yellow (P-Yellow); Glucose Qualitative, Urine 4+ (Neg); Ketones, Urine 4+ (Neg); Leukocyte Esterase, Urine Neg (Neg); Nitrite, Urine Neg (Neg); Protein, Urine 1+ (Neg); Specific Gravity, Urine 1.015 (1.003-1.022); Urobilinogen, Urine NORM (Normal)
[2018-02-24 19:15] LABS: Mean Corpuscular Volume 93 fL (80-100)
[2018-02-24 19:18] LABS: U Amphetamine Screen DETECTED; U Barbituate Screen Not Detected; U Benzodiazapine Screen Not Detected; U Buprenorphine Screen Not Detected; U Cannabinoids Screen DETECTED; U Cocaine Screen Not Detected; U Methadone Screen Not Detected; U Methamphetamine Screen DETECTED; U Opiates Screen Not Detected; U Oxycodone Screen Not Detected; U Phencyclidine Screen Not Detected; U Propoxyphene Screen Not Detected
[2018-02-24 19:38] LABS: Ethanol (Alcohol), Blood, Med <3 mg/dL
[2018-02-24 20:07] LABS: Alanine Aminotransfer (ALT/SGP 32 U/L (12-78); Albumin, Blood 4.4 g/dL (3.4-5.0); Alk Phos 136 U/L (50-136); Anion Gap 21 mmol/L (6-16); Aspartate Aminotrans (AST/SGOT 9 U/L (12-37); Bilirubin, Total 0.5 mg/dL (0.1-1.0); Blood Urea Nitrogen 19 mg/dL (8-24); Bun/Creatinine Ratio 34.5 (12.0-20.0); CO2, Blood 9 mmol/L (21-32); Calcium, Blood 8.8 mg/dL (8.5-10.1); Chloride, Blood 93 mmol/L (98-108); Creatinine, Blood 0.55 mg/dL (0.40-1.00); Globulin, Blood 4.5 g/dL (2.2-4.0); Glomerular Filtration Rate >60 (60-); Glucose, Blood 756 mg/dL (70-99); Potassium, Blood 4.8 mmol/L (3.5-5.5); Sodium, Blood 123 mmol/L (136-145); Total Protein, Blood 8.9 g/dL (6.4-8.2)
[2018-02-24 20:26] LABS: Beta-hydroxybutyrate 80.8 mg/dL (0.2-2.8)
[2018-02-24 21:35] LABS: Magnesium, Blood 2.3 mg/dL (1.6-2.4); Phosphorus, Blood 3.6 mg/dL (2.5-4.9)
[2018-02-25 00:02] LABS: Anion Gap 17 mmol/L (6-16); Blood Urea Nitrogen 14 mg/dL (8-24); Bun/Creatinine Ratio 28.9 (12.0-20.0); CO2, Blood 11 mmol/L (21-32); Chloride, Blood 106 mmol/L (98-108); Creatinine, Blood 0.48 mg/dL (0.40-1.00); Glomerular Filtration Rate >60 (60-); Glucose, Blood 353 mg/dL (70-99); Potassium, Blood 4.6 mmol/L (3.5-5.5)
[2018-02-25 00:06] LABS: Sodium, Blood 134 mmol/L (136-145)
[2018-02-25 04:35] LABS: Anion Gap 11 mmol/L (6-16); Blood Urea Nitrogen 12 mg/dL (8-24); Bun/Creatinine Ratio 29.4 (12.0-20.0); CO2, Blood 14 mmol/L (21-32); Calcium, Blood 7.6 mg/dL (8.5-10.1); Chloride, Blood 109 mmol/L (98-108); Creatinine, Blood 0.41 mg/dL (0.40-1.00); Glomerular Filtration Rate >60 (60-); Glucose, Blood 209 mg/dL (70-99); Potassium, Blood 4.3 mmol/L (3.5-5.5); Sodium, Blood 134 mmol/L (136-145)
[2018-02-25 09:33] LABS: Anion Gap 10 mmol/L (6-16); Blood Urea Nitrogen 10 mg/dL (8-24); Bun/Creatinine Ratio 27.2 (12.0-20.0); CO2, Blood 16 mmol/L (21-32); Calcium, Blood 7.7 mg/dL (8.5-10.1); Chloride, Blood 108 mmol/L (98-108); Creatinine, Blood 0.37 mg/dL (0.40-1.00); Glomerular Filtration Rate >60 (60-); Glucose, Blood 230 mg/dL (70-99); Sodium, Blood 134 mmol/L (136-145)
[2018-02-25 14:33] LABS: Anion Gap 10 mmol/L (6-16); Blood Urea Nitrogen 8 mg/dL (8-24); CO2, Blood 18 mmol/L (21-32); Calcium, Blood 7.3 mg/dL (8.5-10.1); Chloride, Blood 106 mmol/L (98-108); Creatinine, Blood 0.38 mg/dL (0.40-1.00); Glomerular Filtration Rate >60 (60-); Glucose, Blood 404 mg/dL (70-99); Potassium, Blood 4.1 mmol/L (3.5-5.5); Sodium, Blood 134 mmol/L (136-145)
[2018-02-26 05:35] LABS: BASOPHILS ABSOLUTE AUTO 0.03 K/mm3 (0.00-0.23); BASOPHILS PERCENT AUTO 0 % (0-2); EOSINOPHILS ABSOLUTE AUTO 0.06 K/mm3 (0.00-0.68); EOSINOPHILS PERCENT AUTO 1 % (0-6); Hematocrit 37.3 % (33.0-51.0); Hemoglobin 12.8 g/dL (11.5-16.0); IMMATURE GRAN ABSOLUTE AUTO 0.05 K/mm3 (0.00-0.10); IMMATURE GRAN PERCENT AUTO 1 % (0-1); LYMPHOCYTES ABSOLUTE AUTO 3.07 K/mm3 (0.84-5.20); LYMPHOCYTES PERCENT AUTO 31 % (21-46); MONOCYTES ABSOLUTE AUTO 0.97 K/mm3 (0.16-1.47); MONOCYTES PERCENT AUTO 10 % (4-13); Mean Corpuscular HGB 30.3 pg (26.0-34.0); Mean Corpuscular HGB Conc 34.3 g/dL (31.5-36.5); Mean Platelet Volume 10.1 fL (9.1-12.4); NEUTROPHILS ABSOLUTE AUTO 5.82 K/mm3 (1.96-9.15); NEUTROPHILS PERCENT AUTO 58 % (41-73); Platelet Count 340 K/mm3 (150-400); RDW Coefficient Variation 11.9 % (11.7-14.2); RDW Standard Deviation 38.5 fL (35.1-46.3); Red Blood Cell Count 4.22 M/mm3 (3.80-5.20)
[2018-02-26 05:39] LABS: Mean Corpuscular Volume 88 fL (80-100)
[2018-02-26 05:58] LABS: Anion Gap 10 mmol/L (6-16); Blood Urea Nitrogen 14 mg/dL (8-24); Bun/Creatinine Ratio 31.3 (12.0-20.0); CO2, Blood 24 mmol/L (21-32); Calcium, Blood 8.5 mg/dL (8.5-10.1); Chloride, Blood 101 mmol/L (98-108); Creatinine, Blood 0.45 mg/dL (0.40-1.00); Glomerular Filtration Rate >60 (60-); Glucose, Blood 257 mg/dL (70-99); Potassium, Blood 3.5 mmol/L (3.5-5.5); Sodium, Blood 135 mmol/L (136-145)
[2018-02-27 06:36] LABS: BASOPHILS ABSOLUTE AUTO 0.02 K/mm3 (0.00-0.23); BASOPHILS PERCENT AUTO 0 % (0-2); EOSINOPHILS ABSOLUTE AUTO 0.07 K/mm3 (0.00-0.68); EOSINOPHILS PERCENT AUTO 1 % (0-6); Hematocrit 31.5 % (33.0-51.0); Hemoglobin 10.7 g/dL (11.5-16.0); IMMATURE GRAN ABSOLUTE AUTO 0.01 K/mm3 (0.00-0.10); IMMATURE GRAN PERCENT AUTO 0 % (0-1); LYMPHOCYTES ABSOLUTE AUTO 3.04 K/mm3 (0.84-5.20); LYMPHOCYTES PERCENT AUTO 56 % (21-46); MONOCYTES ABSOLUTE AUTO 0.74 K/mm3 (0.16-1.47); MONOCYTES PERCENT AUTO 14 % (4-13); Mean Corpuscular HGB 30.5 pg (26.0-34.0); Mean Corpuscular Volume 90 fL (80-100); Mean Platelet Volume 9.7 fL (9.1-12.4); NEUTROPHILS ABSOLUTE AUTO 1.53 K/mm3 (1.96-9.15); NEUTROPHILS PERCENT AUTO 28 % (41-73); Platelet Count 258 K/mm3 (150-400); RDW Coefficient Variation 12.6 % (11.7-14.2); RDW Standard Deviation 41.1 fL (35.1-46.3); Red Blood Cell Count 3.51 M/mm3 (3.80-5.20); White Blood Cell Count 5.41 K/mm3 (4.00-11.30)
[2018-02-27 13:53] LABS: Source, Urine Clean Catch
[2018-02-27 14:07] LABS: Bilirubin, Urine Neg (Neg); Blood, Urine Neg (Neg); Glucose Qualitative, Urine 4+ (Neg); Ketones, Urine 2+ (Neg); Leukocyte Esterase, Urine Neg (Neg); Nitrite, Urine Neg (Neg); Protein, Urine Neg (Neg); Urobilinogen, Urine NORM (Normal)
[2018-02-27 14:18] LABS: Color, Urine Yellow (P-Yellow)
[2018-02-27 14:20] LABS: Appearance, Urine Hazy (Clear)
[2018-02-27 14:30] LABS: Bacteria Many /hpf; Red Blood Cells, Urine 0-2 /hpf (0-2); Squamous Epithelial Cells Few /hpf (Few)
[2018-02-28 03:07] LABS: Campylobacter Sp Not Detected (NOT DETECT); Cryptosporidium Not Detected (NOT DETECT); Cyclospora Cayetanensis Not Detected (NOT DETECT); E. Coli O157 Not Detected (NOT DETECT); Entamoeba Histolytica Not Detected (NOT DETECT); Enteroaggregative E. coli-EAEC Not Detected (NOT DETECT); Enteropathogenic E. coli-EPEC Not Detected (NOT DETECT); Enterotoxigenic E. coli-ETEC Not Detected (NOT DETECT); Plesiomonas Shigelloides Not Detected (NOT DETECT); Salmonella Sp Not Detected (NOT DETECT); Shiga Toxin-prod E. coli-STEC Not Detected (NOT DETECT); Shigella/Enteroin E. coli-EIEC Not Detected (NOT DETECT); Vibrio Cholerae Not Detected (NOT DETECT); Vibrio Sp Not Detected (NOT DETECT); Yersinia Enterocolitica Not Detected (NOT DETECT)
[2018-02-28 03:08] LABS: Adenovirus F 40/41 Not Detected (NOT DETECT); Astrovirus Not Detected (NOT DETECT); Giardia Lamblia Not Detected (NOT DETECT); Norovirus GI/GII Not Detected (NOT DETECT); Rotavirus A Not Detected (NOT DETECT); Sapovirus Not Detected (NOT DETECT)
[2018-02-28 08:56] LABS: BASOPHILS ABSOLUTE AUTO 0.02 K/mm3 (0.00-0.23); BASOPHILS PERCENT AUTO 0 % (0-2); EOSINOPHILS ABSOLUTE AUTO 0.04 K/mm3 (0.00-0.68); EOSINOPHILS PERCENT AUTO 1 % (0-6); Hematocrit 32.2 % (33.0-51.0); Hemoglobin 10.8 g/dL (11.5-16.0); IMMATURE GRAN ABSOLUTE AUTO 0.02 K/mm3 (0.00-0.10); IMMATURE GRAN PERCENT AUTO 0 % (0-1); LYMPHOCYTES ABSOLUTE AUTO 3.33 K/mm3 (0.84-5.20); LYMPHOCYTES PERCENT AUTO 45 % (21-46); MONOCYTES PERCENT AUTO 11 % (4-13); Mean Corpuscular HGB Conc 33.5 g/dL (31.5-36.5); Mean Corpuscular Volume 89 fL (80-100); Mean Platelet Volume 9.9 fL (9.1-12.4); NEUTROPHILS ABSOLUTE AUTO 3.24 K/mm3 (1.96-9.15); NEUTROPHILS PERCENT AUTO 44 % (41-73); Platelet Count 281 K/mm3 (150-400); RDW Coefficient Variation 12.8 % (11.7-14.2); RDW Standard Deviation 42.1 fL (35.1-46.3); White Blood Cell Count 7.45 K/mm3 (4.00-11.30)
[2018-02-28 09:17] LABS: Anion Gap 6 mmol/L (6-16); Blood Urea Nitrogen 14 mg/dL (8-24); Bun/Creatinine Ratio 31.9 (12.0-20.0); CO2, Blood 30 mmol/L (21-32); Calcium, Blood 8.6 mg/dL (8.5-10.1); Chloride, Blood 104 mmol/L (98-108); Creatinine, Blood 0.44 mg/dL (0.40-1.00); Glomerular Filtration Rate >60 (60-); Glucose, Blood 76 mg/dL (70-99); Potassium, Blood 3.7 mmol/L (3.5-5.5); Sodium, Blood 140 mmol/L (136-145)
[2018-03-01 05:12] LABS: BASOPHILS ABSOLUTE AUTO 0.03 K/mm3 (0.00-0.23); BASOPHILS PERCENT AUTO 0 % (0-2); EOSINOPHILS ABSOLUTE AUTO 0.07 K/mm3 (0.00-0.68); EOSINOPHILS PERCENT AUTO 1 % (0-6); Hematocrit 32.1 % (33.0-51.0); Hemoglobin 10.6 g/dL (11.5-16.0); IMMATURE GRAN ABSOLUTE AUTO 0.01 K/mm3 (0.00-0.10); IMMATURE GRAN PERCENT AUTO 0 % (0-1); LYMPHOCYTES PERCENT AUTO 54 % (21-46); MONOCYTES ABSOLUTE AUTO 0.77 K/mm3 (0.16-1.47); MONOCYTES PERCENT AUTO 12 % (4-13); Mean Corpuscular HGB 30.7 pg (26.0-34.0); Mean Platelet Volume 9.7 fL (9.1-12.4); NEUTROPHILS ABSOLUTE AUTO 2.24 K/mm3 (1.96-9.15); NEUTROPHILS PERCENT AUTO 33 % (41-73); Platelet Count 270 K/mm3 (150-400); RDW Coefficient Variation 13.2 % (11.7-14.2); RDW Standard Deviation 44.6 fL (35.1-46.3); Red Blood Cell Count 3.45 M/mm3 (3.80-5.20); White Blood Cell Count 6.72 K/mm3 (4.00-11.30)
[2018-03-01 05:15] LABS: Mean Corpuscular Volume 93 fL (80-100)
[2018-03-01 05:33] LABS: Anion Gap 4 mmol/L (6-16); Blood Urea Nitrogen 16 mg/dL (8-24); CO2, Blood 33 mmol/L (21-32); Calcium, Blood 8.9 mg/dL (8.5-10.1); Chloride, Blood 102 mmol/L (98-108); Creatinine, Blood 0.52 mg/dL (0.40-1.00); Glomerular Filtration Rate >60 (60-); Glucose, Blood 62 mg/dL (70-99); Potassium, Blood 4.1 mmol/L (3.5-5.5); Sodium, Blood 139 mmol/L (136-145)
[2018-03-02 05:19] LABS: Hematocrit 34.3 % (33.0-51.0); Hemoglobin 11.2 g/dL (11.5-16.0); Mean Corpuscular HGB 30.6 pg (26.0-34.0); Mean Corpuscular HGB Conc 32.7 g/dL (31.5-36.5); Mean Corpuscular Volume 94 fL (80-100); Mean Platelet Volume 10.4 fL (9.1-12.4); Platelet Count 302 K/mm3 (150-400); RDW Coefficient Variation 13.3 % (11.7-14.2); RDW Standard Deviation 45.3 fL (35.1-46.3); Red Blood Cell Count 3.66 M/mm3 (3.80-5.20); White Blood Cell Count 7.45 K/mm3 (4.00-11.30)
[2018-03-02 05:34] LABS: Anion Gap 4 mmol/L (6-16); Blood Urea Nitrogen 21 mg/dL (8-24); Bun/Creatinine Ratio 37.6 (12.0-20.0); CO2, Blood 34 mmol/L (21-32); Calcium, Blood 8.7 mg/dL (8.5-10.1); Chloride, Blood 100 mmol/L (98-108); Creatinine, Blood 0.56 mg/dL (0.40-1.00); Glomerular Filtration Rate >60 (60-); Glucose, Blood 239 mg/dL (70-99); Magnesium, Blood 2.2 mg/dL (1.6-2.4); Phosphorus, Blood 4.6 mg/dL (2.5-4.9); Potassium, Blood 4.4 mmol/L (3.5-5.5); Sodium, Blood 138 mmol/L (136-145)
[2018-03-02] MEDS ORDERED: ASCO500 PO (12:39)
[2018-03-02] MEDS ORDERED: Ferrous Sulfat325 M2 PO (12:40)
[2018-03-02] MEDS ORDERED: LISI5 PO (12:40)
[2018-03-02] MEDS ORDERED: SACC250C PO (12:41)
[2018-03-02] MEDS ORDERED: SUMA25 PO (12:42)
[2018-03-02] MEDS ORDERED: TRAZ50 PO (12:47)
[2018-03-02] MEDS ORDERED: Vancocin HCl125 MG PO (12:47)
== END 2018-03-02 14:56 | disposition home or self-care (01) | DRG 638 ==
LOC: ER 18:01 → ICUE 21:33 → ICUW 21:33 → ICUE 22:02 → MEDS 02-25 22:15
PROVIDERS: Emergency Medicine; Family Medicine; Internal Medicine; Nurse Practitioner Acute Care
PROC: 3E0234Z Introduction of Serum, Toxoid and Vaccine into Muscle, Percutaneous Approach (ICD-10-PCS; principal; 2018-02-25)
DX: E10.10 Type 1 diabetes mellitus with ketoacidosis without coma (principal); N39.0 Urinary tract infection, site not specified; A04.72 Enterocolitis due to Clostridium difficile, not specified as recurrent; E87.1 Hypo-osmolality and hyponatremia; F33.9 Major depressive disorder, recurrent, unspecified; B96.20 Unspecified Escherichia coli [E. coli] as the cause of diseases classified elsewhere; E10.40 Type 1 diabetes mellitus with diabetic neuropathy, unspecified; J45.909 Unspecified asthma, uncomplicated; F19.90 Other psychoactive substance use, unspecified, uncomplicated; G43.909 Migraine, unspecified, not intractable, without status migrainosus; G44.89 Other headache syndrome; F41.1 Generalized anxiety disorder; I10 Essential (primary) hypertension; G40.909 Epilepsy, unspecified, not intractable, without status epilepticus; D64.9 Anemia, unspecified; E83.51 Hypocalcemia; F17.210 Nicotine dependence, cigarettes, uncomplicated; F12.129 Cannabis abuse with intoxication, unspecified; Z86.14 Personal history of Methicillin resistant Staphylococcus aureus infection; Z79.4 Long term (current) use of insulin; Z79.899 Other long term (current) drug therapy; Z88.5 Allergy status to narcotic agent; Z23 Encounter for immunization
CPT/HCPCS: 36415; 80048; 80053; 81001; 81025; 82010; 82947; 83690; 83735; 83930; 84100; 85025; 85027; 87077; 87086; 87186; 87507; 90686; 93005; 93010; 94640; 94760; 96361; 96365; 96366; 99285-25; C9113; G0480; J1650; J1815; J3480; J7030; J7042

== ENCOUNTER 2018-06-01 22:40 | Inpatient (IN) | payer OTHER ==
[~2018-06-01] VITALS: Ht 172.7 cm; Wt 60.5 kg
[~2018-06-01 22:40] MED LIST changes: +ASCO500 PO; +Celexa10 MG PO; +Ferrous Sulfat325 M2 PO; +GI COCKTAIL PO; +PANT40 PO; +SACC250C PO; +SUMA25 PO; +TRAZ50 PO; +Vancocin HCl125 MG PO
[2018-06-02 00:24] LABS: BASOPHILS ABSOLUTE AUTO 0.06 K/mm3 (0.00-0.23); BASOPHILS PERCENT AUTO 0 % (0-2); EOSINOPHILS ABSOLUTE AUTO 0.06 K/mm3 (0.00-0.68); EOSINOPHILS PERCENT AUTO 0 % (0-6); Hematocrit 35.5 % (33.0-51.0); Hemoglobin 11.7 g/dL (11.5-16.0); IMMATURE GRAN ABSOLUTE AUTO 0.22 K/mm3 (0.00-0.10); IMMATURE GRAN PERCENT AUTO 1 % (0-1); LYMPHOCYTES ABSOLUTE AUTO 2.12 K/mm3 (0.84-5.20); LYMPHOCYTES PERCENT AUTO 12 % (21-46); MONOCYTES ABSOLUTE AUTO 1.28 K/mm3 (0.16-1.47); MONOCYTES PERCENT AUTO 7 % (4-13); Mean Corpuscular Volume 94 fL (80-100); Mean Platelet Volume 10.1 fL (9.1-12.4); NEUTROPHILS ABSOLUTE AUTO 14.43 K/mm3 (1.96-9.15); NEUTROPHILS PERCENT AUTO 80 % (41-73); Platelet Count 330 K/mm3 (150-400); RDW Coefficient Variation 12.4 % (11.7-14.2); RDW Standard Deviation 43.4 fL (35.1-46.3); Red Blood Cell Count 3.78 M/mm3 (3.80-5.20); White Blood Cell Count 18.17 K/mm3 (4.00-11.30)
[2018-06-02 00:35] LABS: Alanine Aminotransfer (ALT/SGP 16 U/L (12-78); Albumin/Globulin Ratio 0.7 (0.8-1.8); Alk Phos 127 U/L (50-136); Anion Gap 9 mmol/L (6-16); Aspartate Aminotrans (AST/SGOT 11 U/L (12-37); Bilirubin, Total 0.1 mg/dL (0.1-1.0); Blood Urea Nitrogen 15 mg/dL (8-24); Bun/Creatinine Ratio 29.9 (12.0-20.0); CO2, Blood 28 mmol/L (21-32); Calcium, Blood 8.6 mg/dL (8.5-10.1); Chloride, Blood 101 mmol/L (98-108); Globulin, Blood 4.1 g/dL (2.2-4.0); Glomerular Filtration Rate >60 (60-); Glucose, Blood 364 mg/dL (70-99); Potassium, Blood 2.9 mmol/L (3.5-5.5); Sodium, Blood 138 mmol/L (136-145); Total Protein, Blood 7.1 g/dL (6.4-8.2)
[2018-06-02] MEDS ORDERED: Cymbalta20 MG PO (01:41)
[2018-06-02] MEDS ORDERED: PROM25 PO (01:41)
--- NOTE | 2018-06-02 03:43 | NUR ---
ASSUMED CARE OF PATIENT AT APPROXIMATELY 0145 FROM ED TEETEE LARIOS. PATIENT ARRIVED TO UNIT VIA STRETCHER; TRANSFER W/ SBA FROM ED TO PCU STRETCHER; PATIENT TEARFUL; STATING PAIN IN ARMS/HANDS /10; MEDICATED PER EMAR; PATIENT REPORTS PAIN MEDICATION HELPS. PHOTO'S TAKEN AND PLACED IN CHART; ADMISSION COMPLETE. PATIENT DENIES NUMBNESS, TINGLING, DIZZINESS AND NAUSEA. PATIENT'S HANDS VERY TENDER TO TOUCH; ELEVATED ON PILLOWS; ABSCESS ON LEFT ARM DRAINING. PATIENT REPORTS SCAB ON FOOT FROM RECENT FALL AT HOME. PATIENT REPORTS METH USE DAILY; PATIENT REPORTS RELAPSE IN PAST MONTH. PATIENT SURGICAL NO TELE STATUS; OXYGEN SATURATION ABOVE 90% ON ROOM AIR. HOME HEALTH SPEECH THERAPIST REFERRAL. CONTACT ISOLATION. SBA TO BATHROOM. IV ABX INFUSING PER ORDER. PATIENT CURRENTLY RESTING IN BED; CALL LIGHT IN REACH; BED IN LOWEST POSISTION; BED ALARM ON; WILL CONTINUE TO MONITOR AND ASSESS UNTIL END OF SHIFT.
--- NOTE | 2018-06-02 06:25 | NUR ---
PATIENT HAS NOT SLEPT SINCE ARRIVAL TO UNIT; COMPLAINED OF PAIN IN HANDS AND ARMS; CRYING OUT IN HALLWAY; DR. GHOSH CALLED; ORDERS RECIEVED. PATIENT COMFORTABLE AT THIS TIME; RESTING QUIETLY IN BED. NS INFUSING PER ORDER. PATIENT AMBULATES WITH SBA. ORTHO CONSULT CALLED IN; DR. LAZO TO SEE PATIENT. NO OTHER ACUTE CHANGES TO REPORT. WILL CONTINUE TO MONITOR AND ASSESS UNTIL END OF SHIFT.
--- NOTE | 2018-06-02 09:45 | NUR ---
PATIENT REQUESTING TO GO OUTSIDE WITH HER BOYFRIEND TO SMOKE. INSTRUCTED THAT IT WOULD NOT BE SAFE FOR HER TO GO OUTSIDE BASED ON HER CURRENT ILLNESS, HIGH AMOUNTS OF FENTANYL FOR PAIN CONTROL, NEED TO BE AVAILABLE WHEN THE SURGEON COMES BY TO SEE HER, AND HER METH ADDICTION TO PREVENT INJECTION VIA HER IV LINE. PT UPSET, TEARFUL, AND STATED WE "ARE TREATING HER LIKE A JUNKIE." INSTRUCTED PT THAT HER METH ADDICTION IS A SECONDARY REASON AND HER CURRENT ILLNESS AND PAIN MEDICATION USE IS THE PRIMARY REASON. VERBALIZED UNDERSTANDING YET REMAINS TEARFUL.
[2018-06-02 09:56] LABS: Hematocrit 35.2 % (33.0-51.0); Hemoglobin 11.7 g/dL (11.5-16.0); Mean Corpuscular HGB 31.4 pg (26.0-34.0); Mean Corpuscular HGB Conc 33.2 g/dL (31.5-36.5); Mean Corpuscular Volume 94 fL (80-100); Mean Platelet Volume 9.9 fL (9.1-12.4); Platelet Count 300 K/mm3 (150-400); RDW Coefficient Variation 12.6 % (11.7-14.2); RDW Standard Deviation 43.9 fL (35.1-46.3); Red Blood Cell Count 3.73 M/mm3 (3.80-5.20)
[2018-06-02 10:25] LABS: Alanine Aminotransfer (ALT/SGP 14 U/L (12-78); Albumin, Blood 2.6 g/dL (3.4-5.0); Albumin/Globulin Ratio 0.7 (0.8-1.8); Alk Phos 121 U/L (50-136); Anion Gap 7 mmol/L (6-16); Aspartate Aminotrans (AST/SGOT 15 U/L (12-37); Bilirubin, Total 0.2 mg/dL (0.1-1.0); Blood Urea Nitrogen 13 mg/dL (8-24); CO2, Blood 26 mmol/L (21-32); Calcium, Blood 8.1 mg/dL (8.5-10.1); Chloride, Blood 103 mmol/L (98-108); Creatinine, Blood 0.43 mg/dL (0.40-1.00); Globulin, Blood 3.8 g/dL (2.2-4.0); Glomerular Filtration Rate >60 (60-); Glucose, Blood 182 mg/dL (70-99); Potassium, Blood 3.3 mmol/L (3.5-5.5); Sodium, Blood 136 mmol/L (136-145); Total Protein, Blood 6.4 g/dL (6.4-8.2)
--- NOTE | 2018-06-02 11:15 | NUR ---
GAVE REPORT TO ALIYA FORMING PRESS OPERATOR, WHOM WILL ASSUME CARE OF PT ONCE SHE IS TRANSFERRED TO ROOM 226.
--- NOTE | 2018-06-02 11:35 | NUR ---
I introduced myself as a slate roofer helper and was invited by pt to enter the room. Pt was groggy but seemed please to have a visit. pt's boyfriend was present but went into the bathroom when I entered the room and stayed there until I left. Pt expressed a dimished sense of meaning and dignity. Pt stated that she was not only in physical pain from infection but also emotional pain from a difficult past. After establishing therapeutic alliance and conducting a brief life review I was able to provide emotional and spiritual support by reaffirming her value and reminding her of what the Bible says about God's love, care and strength. I provided prayer. Pt showed signs of elevated emotions, restored miguel and an increased sense of value.
--- NOTE | 2018-06-02 12:05 | NUR ---
STARTED FIRST BAG OF POTASSIUM CHLORIDE 20 MEQS IV. NEEDS ONE MORE, SENT TO SURGICAL UNIT WITH PT. PATIENT ESCORTED TO ROOM 226 VIA BED BY KYLEE QUIÑONEZ, AND CHARGE NURSE, JAMES.
--- NOTE | 2018-06-02 18:56 | NUR ---
SHIFT SUMMARY PT A&OX4, PLEASANT & COOPERATIVE WITH CARE. LEFT FOR OR FOR I&D OF HANDS @ 1830. PAIN MANAGED WITH 50 MCGS FENT X2. VOIDING WELL. AMB SBA TO BRP. WILL REPORT OFF TO OWEN RN.
--- NOTE | 2018-06-02 21:10 | NUR ---
PT ARRIVED TO ROOM FROM PACU S/P LEFT HAND I&D. PT IS DROWSY BUT WAKES EASILY. NO SIGNS OF DISTRESS OR DISCOMFORT. PLEASANT AND COOPERATIVE. ASSISTED WITH MOVING OVER TO BED AND TOLERATED WELL. LEFT HAND IS DAVE WRAPPED TO ABOVE ELBOW AND IS DRY AND INTACT. FINGERS ARE SWOLLEN AND NUMB. PT CAN WIGGLE FINGERS AND DOES HAVE CAP REFILL OF LESS THAN 3 SEC. VSS WITH LOW GRADE TEMP. PT GIVEN SIPS OF WATER DENIES ANY NAUSEA.
[2018-06-03 01:42] LABS: Vancomycin, Trough 8.4 ug/mL (5.0-10.0)
--- NOTE | 2018-06-03 05:21 | NUR ---
POD 1 S/O LEFT HAND/ELBOW I&D. HAS ACTUALLY DONE WELL DURING NIGHT. COMPLAINTS OF PAIN HAVE BEEN MINIMAL AND MOSTLY SLEPT DURING NIGHT. HAS KEPT LEFT HAND ELEVATED. STILL HAS NUMBNESS TO FINGERS BUT WIGGLES THEM. CONT IV ABX. PLAN FOR REPEAT I&D TOMORROW. PT IS INDEPENDENT IN ROOM.
[2018-06-03 13:38] LABS: Vancomycin, Trough 20.3 ug/mL (5.0-10.0)
--- NOTE | 2018-06-03 16:10 | NUR ---
Patient was in lying in bed with her boyfriend when I entered the room so I made my visit brief. Patient was awake and alert and in much better spirits from the previous day. Patient said that she is progressing nicely and that one more surgery and lots of antibiotics are still ahead. I provided anxiety containment. Patient stated that the nursing staff and doctors at [facility] have been terrific. Patient thanked me for my visit yesterday and for checking on her progress today.
--- NOTE | 2018-06-03 16:28 | NUR ---
SHIFT SUMMARY PT A&OX4, VSS. POD#1 I&D LUE, SURGICAL BANDAGE/DAVE WRAP, REINFORCED WITH GAUZE & DAVE WRAP, ELEVATED ABOVE LEVEL OF HEART. PAIN MANAGED PER EMAR. MEGAN PO, DENIES N&V. AMB INDEPENDENT IN ROOM, TO BRP AND OFF FLOOR. VOIDING WELL. PLAN FOR SECOND I&D ON THURSDAY AND POSSIBLE PICC PLACEMENT. WILL CTM & TX PER EMAR UNTIL REPORT GIVEN TO ONCOMING NOC RN.
--- NOTE | 2018-06-03 16:55 | NUR ---
06/03/18 1655 Lou Underwood VERIFICATIONS: EDIT CHART.
--- NOTE | 2018-06-03 18:45 | NUR ---
WAS ABLE TO PLACE NEW 18 IV JUST ABOVE RIGHT AC AND RESUMED IV ABX. PT STATES LEFT HAND DOES FEEL BETTER AND SWELLING IS DOWN. PT DOES HAVE SOME NUMBESS BUT STATES IT HAS IMPROVED SINCE YESTERDAY. DRESSING AROUND WRIST DOES APPEAR TO HAVE SOME SS DRAINAGE SHADOWING.
--- NOTE | 2018-06-04 05:41 | NUR ---
POD 2 S/P LEFT UE I&D. HAS DONE WELL DURING NIGHT. DID LEAVE MORE FREQUENTLY OFF UNIT. PT FEELS THAT LEFT PALM FEELS A LITTLE WORSE TODAY FAR SWELLING AND "HEAT" PT REMAINS AFEBRILE. WIGGLES FINGERS WELL. DR. LAZO PLAN FOR TODAY IS TO REMOVE DRESSING AND DETERMINE IF REPEAT I&D NEEDS DONE TODAY. CONT IV ABX AND PAIN MANAGEMENT FOR NOW.
[2018-06-04 05:54] LABS: Hematocrit 32.5 % (33.0-51.0); Hemoglobin 10.3 g/dL (11.5-16.0); Mean Corpuscular HGB 30.3 pg (26.0-34.0); Mean Corpuscular HGB Conc 31.7 g/dL (31.5-36.5); Mean Corpuscular Volume 96 fL (80-100); Mean Platelet Volume 10.3 fL (9.1-12.4); Platelet Count 299 K/mm3 (150-400); RDW Coefficient Variation 13.1 % (11.7-14.2); RDW Standard Deviation 46.2 fL (35.1-46.3); White Blood Cell Count 10.51 K/mm3 (4.00-11.30)
[2018-06-04 06:15] LABS: Anion Gap 7 mmol/L (6-16); Blood Urea Nitrogen 16 mg/dL (8-24); Bun/Creatinine Ratio 15.8 (12.0-20.0); CO2, Blood 26 mmol/L (21-32); Calcium, Blood 8.5 mg/dL (8.5-10.1); Chloride, Blood 103 mmol/L (98-108); Creatinine, Blood 1.01 mg/dL (0.40-1.00); Glomerular Filtration Rate >60 (60-); Glucose, Blood 236 mg/dL (70-99); Potassium, Blood 3.9 mmol/L (3.5-5.5); Sodium, Blood 136 mmol/L (136-145)
--- NOTE | 2018-06-04 09:08 | NUR ---
LOW BP NOTIFIED DR. SOUSA OF LOWER BP AND PT ASYMPTOMATIC. NO NEW ORDERS AT THIS TIME. WILL CONT TO MONITOR.
--- NOTE | 2018-06-04 16:49 | NUR ---
SHIFT SUMMARY NO ACUTE CHANGES THIS SHIFT. VSS. PT MEDICATED WITH ORAL PAIN PILLS, TYLENOL, AND TORADOL PER ORDERS. MEGAN ADA DIET. INDEPENDENT IN ROOM. IV IS SL EXCEPT FOR ABX. WOUND CARE TO LEFT HAND COMPLETE AND DRESSING CHANGED PER ORDERS. PLAN: DR. LAZO VERBALIZED THAT HE WAS GOING TO CONTACT DR. NAIDU ABOUT POSSIBLY SEEING PT TOMORROW. PT USES CALL LIGHT APPROPRIATELY. WILL CONT TO MONITOR.
--- NOTE | 2018-06-04 21:46 | NUR ---
PROVIDER NOTIFICATION 2119. LILLI LEIGH NOTIFIED PT REPORTED AT SHIFT CHANGED BECOMING UNBALANCED WHILE SITTING ON TOILET AND CATCHING HERSELF WITH L FA ON TOILET PAPER DISPENSER ETC. MOUNTED ON BATHROOM WALL. INCIDENT OCCURED PRIOR TO ASSESSMET THIS SHIFT. NO INCREASE IN DRAINAGE, NO BLEEDING, SIGHTLY RED/ANGRY SKIN. PAIN MANGED WITH ORAL PAIN MEDICATION. WCTM. WILL INCLUDE INCIDENT IN AM REPORT TO TEETEE.
--- NOTE | 2018-06-05 00:20 | NUR ---
PT OFF UNIT WITH SIGNIFICANT OTHER.
--- NOTE | 2018-06-05 05:12 | NUR ---
SHIFT SUMMARY PT A&O X4 T/O SHIFT. POD#3 I&D OF SITES TO L HAND AND FA; DRESSINGS DRY, SCANT DRAINAGE, INACT T/O SHIFT. DAVE WRAPE OVER L HAND. L HAND/FOREARM PAIN MANGED PER EMAR; PT ENCOURAGED TO ELEVATE LUE, PT STS SHE HOLDS LUE ACROSS CHEST TO KEEP ELEVATED WHEN AMUBLATING OFF UNIT. MOVES FINGERS L HAND WELL, PWD. L FOREARM SWOLLEN AND ANGRY. SEE PROVIDER NOTIFICATION NOTE. SCD'S TO BLE'S. PT OFF UNIT 3+ TIMES; EDUCATION ON SAFTEY RISKS OF CHEMICAL INTERACTIONS OF SUBSTANCES OTHER THAN TOBACCO WITH MEDICATION PT IS RECEIVING WHILE AT HOSPITAL GIVEN; PT VERBALIZED UNDERSTANDING. NAUSEA MANGED PER EMAR. BLOOD GLOCOSE LEVELS MANGED PER ORDERS, PROTOCOL AND NURSING JUDGEMENT. CALL LIGHT IN REACH; PT DEMONSTRATES USE. WCTM UNTIL REPORT GIVEN TO DAY SHIFT RN.
--- NOTE | 2018-06-05 17:23 | NUR ---
PT AXO, COOPERATIVE WITH CARE THOUGH HAS EPISODES OF CRYING THROUGHOUT THE SHIFT. PT FREQUENTLY AMBULATES OUTSIDE TO SMOKE. PT SMELLS OF MARIJUANA THOUGH SHE DENIES REPEATEDLY THAT SHE IS USING IT OUTSIDE. PULSE ELEVATED THIS AFTERNOON AT 109 BPM. PT CONCERNED ABOUT SWELLING IN HER LEGS, WHICH IS 1+ BILATERALLY. LUNGS CLEAR THOUGH DIMINISHED IN BASES. PT MEDICATED FOR PAIN PER EMAR. IV PATENT AND INFUSING ANTIBIOTICS AT THIS TIME. DRESSING CHANGE THIS MORNING WITH DR NAIDU PRESENT, SEE HIS NOTE. BED IN LOW POSITION, CALL LIGHT WITHIN REACH. PT HAD MULTIPLE EPISODES OF EMESIS THIS MORNING. MEDICATED PER EMAR WITH ZOFRAN WHICH WAS NOT EFFECTIVE. DR SOUSA CALLED, NEW ORDERS INIATED. CBG AT LUNCH WAS 402, DR SOUSA NOTIFIED WHO WILL CONTINUE TO WATCH CBG TREND. CBG 82 AT 1555. AFTER BEING MEDICATED FOR PAIN AND AFTER PT RETURNED FROM SMOKING THIS EVENING AT 1700, PT STATED THAT SHE FELT SHE WAS HYPOGLYCEMIC. CBG WAS 100. PT RESTING AT THIS TIME
--- NOTE | 2018-06-05 19:52 | NUR ---
PATIENT CALLS AND IS READY.RN NOTIFIED
--- NOTE | 2018-06-06 06:24 | NUR ---
SHIFT SUMMARY: NO ACUTE CHANGES THIS SHIFT. PAIN MANAGED WITH OXY AND TORADOL PER EMAR. MEDICATED FOR N/V WITH ZOFRAN. PT REPORTS VOMITTING X3 BEFORE MEDICATION GIVEN. DRESSING ON L ELBOW CHANGED. PT AMBULATING FREQ. OFF UNIT TO SMOKE. DISCONNECTS IV INDEPENDENTLY. PT TOLD TO CALL WHEN WANTING TO BE DISCONNECTED TO LEAVE UNIT. PT VERBALIZED UNDERSTANDING. FLUIDS TKO. ABX INFUSING PER EMAR. NO COCNERNS AT THIS TIME. CALL LIGHT IN REACH.
--- NOTE | 2018-06-06 08:26 | NUR ---
DR SOUSA RECENTLY HERE. PT DISCUSSED NAUSEA AND FEET SWELLING WITH DR. PT ALSO REPORTED "BURNING" SENSATION TO HAND.
--- NOTE | 2018-06-06 08:27 | NUR ---
DR AWARE OF PT GOING OUT TO SMOKE.
--- NOTE | 2018-06-06 10:07 | NUR ---
DR NAIDU RECENTLY HERE. ASSESSED PT'S HAND. HAND SOAKED WILL PLACE NEW DRESSING. PT EDUCATED ON NPO AFTER MIDNIGHT.
--- NOTE | 2018-06-06 11:16 | NUR ---
RECENTLY HERE AND HAS SEEN PT.
--- NOTE | 2018-06-06 16:11 | NUR ---
SHIFT SUMMARY PT EATING AND DRINKING. PT VOIDING. PT INDEPENDENT. PT BEEN ASSISTED WITH ADL'S PRN. PT BEEN MED FOR PAIN. DRESSINGS CHANGED THIS AM. DANITA HIGGINS TO SEE PT. PT REPORTS UNDERSTANDING OF NPO AFTER MIDNIGHT. PT BEEN EDUCATED ON SMOKING CESSATION.
--- NOTE | 2018-06-07 01:29 | NUR ---
WHEN ATTEMPTING TO FLUSH IV, PT REPORTS PAIN AT IV SITE AND IS TEARFUL.NO LEAKING OR SWELLING NOTED. FLUIDS AND SCHED MIDNIGHT ABX CURRENTLY NOT INFUSING. WILL ATTEMPT ANOTHER IV INSERTION.
--- NOTE | 2018-06-07 04:18 | NUR ---
SHIFT SUMMARY: NO ACUTE CHANGES. PT RESTING MOST OF SHIFT. TELE SHOWS A-FIB @ 91 PER TECH. TREMORS AT BASELINE. GIVEN CLONOPIN BEFORE BED. DENIES N/V AND SOB. SBA WITH WALKER. NO CONCERNS AT THIS TIME.
--- NOTE | 2018-06-07 05:29 | NUR ---
SHIFT SUMMARY: PAIN MANAGED WITH OXY 10 MG Q4 BEFORE MIDNIGHT. NPO AFTER MIDNIGHT. GIVEN FENTANYL 50 MCG AT APPROX 0500. MISSED MIDNIGHT DOSE OF ABX BECAUSE PT REPORTED BURNING SENSATION DURING FLUSH OF NS. PT TEARFUL. SALINE LOCKED MOST OF SHIFT. POWER GLIDE INSERETED AT APPROX 0445 BY GALO MUNIZ RN. PT AMBULATING FREQ OUTSIDE TO SMOKE. AT BEDSIDE. PLAN IS FOR I&D THIS MORNING.
--- NOTE | 2018-06-07 05:36 | NUR ---
SHIFT SUMMARY: PT REPORTS A FALL DURING SHIFT WHILE ATTEMPTING TO GET TO BSC (SEE PREVIOUS NOTE). DR NOTIFIED. NO NEW ORDERS. VS STABLE. A&0 X4. GIVEN TYLENOL 625 MG X1 FOR HEADACHE AND BACK PAIN. PT APPEARS TO BE RESTING COMFORTABLY AFTER. BED ALARM ON FOR SAFETY. SBA TO BSC. ON 3 L O2 NS. DENIES SOB. PLAN IS FOR PT TO DISCHARGE TODAY. CONTINUE TO MONITOR S/P FALL PER DR Mena
--- NOTE | 2018-06-07 07:05 | NUR ---
REPORT FROM MANAGER WELDING. ASSUMED PT CARE.
--- NOTE | 2018-06-07 07:40 | NUR ---
PT MEDICATED WITH FENTANYL AND TORADOL PER EMAR ORDERS. PT C/O LEFT HAND PAIN THAT IS 9/10 AND IS BURNING. PT MOANING AND PACING. ICE PACK PROVIDED. VSS. BS CHARTED. EXPLAINED TO PT NO NEED FOR INSULIN COVERAGE. PT ASKING WHEN SURGEON WAS COMING. EXPLAINED TO PT THAT STAFF WILL CHECK. LUNG SOUNDS CLEAR. PULSES EQUAL AND STRONG. SKIN WITH SORES TO MULT AREAS. SOME SWELLING NOTED TO BILATERAL FEET. PT APPEARS ANXIOUS.
--- NOTE | 2018-06-07 08:26 | NUR ---
PT AMBULATING DOWN BOO TO GO OUTSIDE. AMB W/O DIFF.
--- NOTE | 2018-06-07 09:14 | NUR ---
PT MEDICATED WITH INSULIN. PT DECLINED LOVENOX. AWAITING SURGERY EVAL FOR I&D.
--- NOTE | 2018-06-07 10:37 | NUR ---
PT WALKING FROM ROOM TO OUTSIDE.
--- NOTE | 2018-06-07 10:58 | NUR ---
PT STATES SHE HAS A KELLY AND FEELS LIKE HER BS IS LOW. ASKING FOR BLOOD SUGAR TO BE CHECKED.
--- NOTE | 2018-06-07 11:13 | NUR ---
DISCUSSED LOW BLOOD SUGAR WITH DR CONTRERAS. PROVIDER AWARE OF PTS NPO STATUS. DR CONTRERAS ASKED FOR STAFF TO PROVIDE PT WITH ORANGE JUICE. WILL NOTIFY ORTHO.
--- NOTE | 2018-06-07 11:30 | NUR ---
THIS RN AWAITING CALL BACK FROM ORTHO. SUGAR PACKETS PROVIDED TO PT FOR LOW BLOOD SUGAR.
--- NOTE | 2018-06-07 12:04 | NUR ---
SPOKE WITH DR LAZO RE PT HAVING I&D TODAY AND RE BLOOD SUGAR ISSUES. PROVIDER TO SEND HIS PA TO EVAL PT AND HAVE ORDERS ADJUSTED.
--- NOTE | 2018-06-07 13:10 | NUR ---
housekeeping to room. resumed pt care.
--- NOTE | 2018-06-07 13:25 | NUR ---
report to [place] for lunch.
--- NOTE | 2018-06-07 14:28 | NUR ---
PT NOTED RETURNING TO ROOM.
--- NOTE | 2018-06-07 16:05 | NUR ---
TRANSITIONAL CLAIMS SERVICE ADJUSTOR TO ROOM FOR EVAL. PT VERY DROWSY AND DOESNT SEEM INTERESTED AT THIS TIME. INFO LEFT AT BEDSIDE.
[2018-06-08 05:04] LABS: BASOPHILS ABSOLUTE AUTO 0.07 K/mm3 (0.00-0.23); BASOPHILS PERCENT AUTO 1 % (0-2); EOSINOPHILS ABSOLUTE AUTO 0.18 K/mm3 (0.00-0.68); EOSINOPHILS PERCENT AUTO 1 % (0-6); Hematocrit 31.6 % (33.0-51.0); Hemoglobin 9.9 g/dL (11.5-16.0); IMMATURE GRAN ABSOLUTE AUTO 0.17 K/mm3 (0.00-0.10); IMMATURE GRAN PERCENT AUTO 1 % (0-1); LYMPHOCYTES ABSOLUTE AUTO 2.64 K/mm3 (0.84-5.20); LYMPHOCYTES PERCENT AUTO 19 % (21-46); MONOCYTES PERCENT AUTO 12 % (4-13); Mean Corpuscular HGB 29.9 pg (26.0-34.0); Mean Corpuscular HGB Conc 31.3 g/dL (31.5-36.5); Mean Corpuscular Volume 96 fL (80-100); Mean Platelet Volume 10.2 fL (9.1-12.4); NEUTROPHILS ABSOLUTE AUTO 9.25 K/mm3 (1.96-9.15); NEUTROPHILS PERCENT AUTO 67 % (41-73); Platelet Count 474 K/mm3 (150-400); RDW Coefficient Variation 13.6 % (11.7-14.2); RDW Standard Deviation 47.6 fL (35.1-46.3); Red Blood Cell Count 3.31 M/mm3 (3.80-5.20); White Blood Cell Count 13.91 K/mm3 (4.00-11.30)
--- NOTE | 2018-06-08 07:31 | NUR ---
SUMMARY PT NPO PENDING OR THIS AM. HAD IV MEDS THIS AM PER DAY RN WHILE NPO. NO ACUTE CHANGES. OR NOTIFIED PT IN ISOLATION.
--- NOTE | 2018-06-08 09:20 | NUR ---
History, Chart, Medications and Allergies reviewed before start of procedure. Patient confirms NPO status and agrees with scheduled surgery. Pre-Op teaching done. Pt verbalizes understanding. Lungs clear T/O to Auscultation.
--- NOTE | 2018-06-08 14:50 | NUR ---
PATIENT RETURNED FROM OUTSIDE SMELLING STRONGLY OF MARIJUANA. MARIJUANA AND WRAPPING PAPERS NOTED IN PATIENT ROOM. ADVISED PATIENT THAT MARIJUANA IS NOT ALLOWED ON THE PREMISES AND NEEDS TO BE FLUSHED OR SENT HOME WITH FAMILY.
--- NOTE | 2018-06-08 19:50 | NUR ---
PT CBG IS ELEVATED OVER 400. DR DIAZ, LANTUS AND LISPRO GIVEN. IORDERS FOR PT NOT TO EAT UNTIL SUGARS GO DOWN AND RECHECK SUGAR AFTER 2-3 HOURS, ONCOMING NURSE INFORMED AND WILL CHECK. PT INDEPENDENT, GOES TO SMOKE VERY FREQ. PAIN MANAGED PER EMAR, GIVEN WITH NAUSEA MEDS PER PT REQUEST. CALL LIGHT IN REACH.
--- NOTE | 2018-06-09 06:16 | NUR ---
SUMMARY NO ACUTE CHANGES NOTED THROUGH THE NIGHT. DRSG REMAINS C/D/I, CIRC WNL, PT CAN MOVE ALL FINGERS. PT ENCOURAGED TO ELEVATE LEFT ARM ON PILLOWS. PT WAS NON COMPLIANT MOST OF THE NIGHT. PT WAS OUTSIDE TO SMOKE MORE THAN 10 TIMES AND HAS NOT HAD MUCH SLEEP. PT WAS ABLE TO SHOWER. PT WAS EDUCATED ABOUT INFECTION CONTROL, SHE WAS ATTEMPTING TO DISCONNECT HER OWN IV LINE FROM THE POWERGLIDE IN HER RIGHT UPPER ARM, PT STATES UNDERSTANDING. PT IS TOLERATING PO INTAKE. PAIN MANAGED PER EMAR. CALL LIGHT IN REACH.
[2018-06-09 09:14] LABS: Glucose, Blood 640 mg/dL (70-99)
--- NOTE | 2018-06-09 09:55 | NUR ---
PT BLOOD SUGAR READING >[address] CONTRERAS CALLED AND ORDERED 80UNITS LISPRO, 10U REGULAR, AND 20 UNITS LANTUS INSULINS. LAB GAVE AN EXACT BLOOD SUGAR READING @ 640. DR, INFORMED. WILL RECHACK BLOOD SUGAR @ 1015 (2 HOURS FROM INSULIN ADMIN. PER DR REQUEST). IF CBG ABOVE 400 PT WILL NEED INSULIN DRIP STATES WILL UPDATE DR CONTRERAS @ THAT TIME FOR NEXT STEPS.
--- NOTE | 2018-06-09 11:53 | NUR ---
PT SBG WENT FROM 670 TO 150"S AFTER [address] DC TO CHECK AGAIN IN 1 HOUR TO MAKE SURE SHE DOES NOT GET TOO LOW. BLOOD SUGAR AFTER 1 HOUR IS @ 99. CURRENTLY EATING LUNCH. CNI FOR INSULIN. WILL CTM.
[2018-06-09] MEDS ORDERED: TRAM50 PO (16:28)
--- NOTE | 2018-06-09 16:51 | NUR ---
AT 13:00 SPOKE WITH CHAVA SANCHEZ. WHO ADVISED UNDER ADVICE OF THE HAND SURGEON THEY TELEPHONE CONSULTED TO DISCHARGE PATIENT ON ORAL ANTIBIOTICS, DAILY WOUND DRESSING CHANGES PREFERABLY THROUGH WOUND CARE CLINIC BUT COULD ALSO BE DONE BY PATIENT IF WOUND CLINIC NOT ABLE. FOLLOW UP IN ORTHO OFFICE 7-[address] HAND[address] MELANIE CONTRERAS UPDATED WITH PLAN BY THIS RN.
--- NOTE | 2018-06-09 17:23 | NUR ---
PT BLOOD SUGAR HIGH THIS AM MANAGED PER ORDERS (SEE OTHER NOTES). CURRENTLY WNL. PT IN AND OUT OF ROOMS TO SMOKE AND "GET FRESH AIR". PAIN MANAGED PER EMAR. PLAN IS TO DISCHARGE TONIGHT WHEN ABLE TO GET A RIDE HOME. PRESCRIPTION FOR PAIN MEDICATION IN CHART. WILL CTM UNTIL DISCHARGE HOME.
--- NOTE | 2018-06-09 19:32 | NUR ---
PT DISCHARGED HOME WITH FAMILY. DRESSING SUPPLIES SENT HOME WITH PT. POWER GLIDE REMOVED. PRESCRITPTION MEDICATION SENT HOME WITH PT. ANTIBIOTIC MEDICATION FAXED TO [facility]. ALL BELONGINGS WITH PT. PT VERBALIZED UNDERSTANDING OF DISCHARGE TEACHING.
== END 2018-06-09 18:51 | disposition home or self-care (01) | DRG 854 ==
LOC: ER 22:40 → PCU 06-02 01:00 → SURS 06-02 01:00 → PCU 06-02 01:40 → SURS 06-02 12:14
PROVIDERS: Hospitalist; Internal Medicine; Orthopaedic Surgery; Physician Assistant; ADMIT Internal Medicine
PROC: 0H9EXZX Drainage of Left Lower Arm Skin, External Approach, Diagnostic (ICD-10-PCS; 2018-06-02)
PROC: 01N50ZZ Release Median Nerve, Open Approach (ICD-10-PCS; principal; 2018-06-02 14:45)
PROC: 0L980ZX Drainage of Left Hand Tendon, Open Approach, Diagnostic (ICD-10-PCS; 2018-06-02 14:45)
PROC: 0HBGXZZ Excision of Left Hand Skin, External Approach (ICD-10-PCS; 2018-06-08)
DX: A40.0 Sepsis due to streptococcus, group A (principal); L03.114 Cellulitis of left upper limb; I96 Gangrene, not elsewhere classified; E10.52 Type 1 diabetes mellitus with diabetic peripheral angiopathy with gangrene; L02.414 Cutaneous abscess of left upper limb; L02.512 Cutaneous abscess of left hand; E10.40 Type 1 diabetes mellitus with diabetic neuropathy, unspecified; E10.649 Type 1 diabetes mellitus with hypoglycemia without coma; E10.65 Type 1 diabetes mellitus with hyperglycemia; G40.909 Epilepsy, unspecified, not intractable, without status epilepticus; E87.6 Hypokalemia; F17.210 Nicotine dependence, cigarettes, uncomplicated; F15.10 Other stimulant abuse, uncomplicated; I10 Essential (primary) hypertension; J45.909 Unspecified asthma, uncomplicated; G56.02 Carpal tunnel syndrome, left upper limb; K21.9 Gastro-esophageal reflux disease without esophagitis; R11.0 Nausea; Z86.14 Personal history of Methicillin resistant Staphylococcus aureus infection
CPT/HCPCS: 10060; 36415; 76882; 80048; 80053; 80202; 82947; 83605; 85025; 85027; 87040; 87070; 87075; 87147; 87205; 94640; 94760; 96361; 96374; 96375; 97110; 97165; 99284-25; C1751; J0690; J1100; J1650; J1815; J1885; J2250; J2370; J2405; J2543; J2765; J3010; J3370; J3480; J7030; J7120

== ENCOUNTER 2018-06-11 00:12 | Day surgery (SDC) | payer OTHER ==
[~2018-06-11 00:12] MED LIST changes: +Cymbalta20 MG PO
== END 2018-06-11 22:51 | disposition home or self-care (01) ==
LOC: WOUND 00:12
DX: T81.31XA Disruption of external operation (surgical) wound, not elsewhere classified, initial encounter (principal); L03.114 Cellulitis of left upper limb; E10.65 Type 1 diabetes mellitus with hyperglycemia; Z87.2 Personal history of diseases of the skin and subcutaneous tissue; Z72.0 Tobacco use; Z88.5 Allergy status to narcotic agent
CPT/HCPCS: G0463

== ENCOUNTER 2018-06-30 21:57 | Emergency (ER) | payer OTHER ==
[~2018-06-30] VITALS: Ht 172.7 cm; Wt 65.3 kg
[2018-06-30 23:19] LABS: BASOPHILS ABSOLUTE AUTO 0.06 K/mm3 (0.00-0.23); BASOPHILS PERCENT AUTO 1 % (0-2); EOSINOPHILS ABSOLUTE AUTO 0.06 K/mm3 (0.00-0.68); EOSINOPHILS PERCENT AUTO 1 % (0-6); Hematocrit 38.5 % (33.0-51.0); Hemoglobin 12.3 g/dL (11.5-16.0); IMMATURE GRAN ABSOLUTE AUTO 0.02 K/mm3 (0.00-0.10); IMMATURE GRAN PERCENT AUTO 0 % (0-1); LYMPHOCYTES ABSOLUTE AUTO 1.86 K/mm3 (0.84-5.20); LYMPHOCYTES PERCENT AUTO 19 % (21-46); MONOCYTES ABSOLUTE AUTO 0.62 K/mm3 (0.16-1.47); MONOCYTES PERCENT AUTO 6 % (4-13); Mean Corpuscular HGB 30.1 pg (26.0-34.0); Mean Corpuscular HGB Conc 31.9 g/dL (31.5-36.5); Mean Corpuscular Volume 94 fL (80-100); NEUTROPHILS ABSOLUTE AUTO 7.31 K/mm3 (1.96-9.15); NEUTROPHILS PERCENT AUTO 74 % (41-73); Platelet Count 280 K/mm3 (150-400); RDW Coefficient Variation 12.9 % (11.7-14.2); RDW Standard Deviation 44.4 fL (35.1-46.3); Red Blood Cell Count 4.09 M/mm3 (3.80-5.20); White Blood Cell Count 9.93 K/mm3 (4.00-11.30)
[2018-06-30 23:31] LABS: Alanine Aminotransfer (ALT/SGP 14 U/L (12-78); Albumin, Blood 3.4 g/dL (3.4-5.0); Albumin/Globulin Ratio 0.7 (0.8-1.8); Alk Phos 140 U/L (50-136); Anion Gap 8 mmol/L (6-16); Aspartate Aminotrans (AST/SGOT 13 U/L (12-37); Bilirubin, Total 0.3 mg/dL (0.1-1.0); Blood Urea Nitrogen 10 mg/dL (8-24); Bun/Creatinine Ratio 13.6 (12.0-20.0); CO2, Blood 28 mmol/L (21-32); Chloride, Blood 103 mmol/L (98-108); Creatinine, Blood 0.73 mg/dL (0.40-1.00); Globulin, Blood 4.6 g/dL (2.2-4.0); Glomerular Filtration Rate >60 (60-); Glucose, Blood 268 mg/dL (70-99); Potassium, Blood 3.5 mmol/L (3.5-5.5); Sodium, Blood 139 mmol/L (136-145)
== END 2018-07-01 03:27 | disposition home or self-care (01) ==
LOC: ER 21:57
PROVIDERS: Physician Assistant
DX: L03.114 Cellulitis of left upper limb (principal); Z88.5 Allergy status to narcotic agent; Z79.899 Other long term (current) drug therapy; Z79.4 Long term (current) use of insulin; E10.9 Type 1 diabetes mellitus without complications; J45.909 Unspecified asthma, uncomplicated; F17.210 Nicotine dependence, cigarettes, uncomplicated
CPT/HCPCS: 36415; 80053; 83605; 85025; 87040; 96365; 96367; 99283-25; J2543; J3370

== ENCOUNTER 2018-07-01 18:48 | Inpatient (IN) | payer OTHER ==
[~2018-07-01] VITALS: Ht 172.7 cm; Wt 67.2 kg
[2018-07-01 20:00] LABS: BASOPHILS ABSOLUTE AUTO 0.05 K/mm3 (0.00-0.23); BASOPHILS PERCENT AUTO 1 % (0-2); EOSINOPHILS ABSOLUTE AUTO 0.09 K/mm3 (0.00-0.68); EOSINOPHILS PERCENT AUTO 1 % (0-6); Hematocrit 37.1 % (33.0-51.0); IMMATURE GRAN ABSOLUTE AUTO 0.03 K/mm3 (0.00-0.10); IMMATURE GRAN PERCENT AUTO 0 % (0-1); LYMPHOCYTES ABSOLUTE AUTO 2.79 K/mm3 (0.84-5.20); LYMPHOCYTES PERCENT AUTO 33 % (21-46); MONOCYTES ABSOLUTE AUTO 0.69 K/mm3 (0.16-1.47); MONOCYTES PERCENT AUTO 8 % (4-13); Mean Corpuscular HGB 29.8 pg (26.0-34.0); Mean Corpuscular HGB Conc 32.3 g/dL (31.5-36.5); Mean Corpuscular Volume 92 fL (80-100); Mean Platelet Volume 10.6 fL (9.1-12.4); NEUTROPHILS ABSOLUTE AUTO 4.73 K/mm3 (1.96-9.15); NEUTROPHILS PERCENT AUTO 56 % (41-73); Platelet Count 287 K/mm3 (150-400); RDW Coefficient Variation 12.8 % (11.7-14.2); RDW Standard Deviation 43.1 fL (35.1-46.3); Red Blood Cell Count 4.03 M/mm3 (3.80-5.20); White Blood Cell Count 8.38 K/mm3 (4.00-11.30)
[2018-07-01 20:31] LABS: Alanine Aminotransfer (ALT/SGP 15 U/L (12-78); Albumin, Blood 3.3 g/dL (3.4-5.0); Albumin/Globulin Ratio 0.7 (0.8-1.8); Alk Phos 133 U/L (50-136); Anion Gap 7 mmol/L (6-16); Aspartate Aminotrans (AST/SGOT 18 U/L (12-37); Bilirubin, Total 0.3 mg/dL (0.1-1.0); Blood Urea Nitrogen 12 mg/dL (8-24); Bun/Creatinine Ratio 17.4 (12.0-20.0); CO2, Blood 26 mmol/L (21-32); Calcium, Blood 9.1 mg/dL (8.5-10.1); Chloride, Blood 105 mmol/L (98-108); Creatinine, Blood 0.69 mg/dL (0.40-1.00); Globulin, Blood 4.6 g/dL (2.2-4.0); Glomerular Filtration Rate >60 (60-); Glucose, Blood 215 mg/dL (70-99); Potassium, Blood 4.2 mmol/L (3.5-5.5); Sodium, Blood 138 mmol/L (136-145); Total Protein, Blood 7.9 g/dL (6.4-8.2)
--- NOTE | 2018-07-01 23:31 | NUR ---
transfer report from Delia KINGSLEY in ER on PT being admitted for rt great toe gangrene and lt arm cellulitis. 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 Await admission and will place in contact isolation due to hx of esbl. no current co diarrhea. await admission will be on tele monitor.
--- NOTE | 2018-07-02 02:48 | NUR ---
38 year old Female admitted with possible rt great toe gangrene and lt hand cellulitis with 3 incision and drainages done approx 3 weeks ago at this facility. pt was dc home on oral antibiotics and daily wound care to lt hand cellulitis site. hx of mrsa 3 years ago pt says she was cleared. hx of esbl in urine and rectal area. HX of cdiff with no recent diarrhea. PT has ortho consult for rt great toe wound which occured approx. 3 days prior to admission. photodoc wound and lt hand wound care orders recieved from DR Jay. PT had exhibitied anxiety upon admission and she ran from room when told she needed to have admission assessment and antibiotics and tele monitor. She did return and significant other took PT outside to smoke against medical policy. they did return and then PT cooperative with assess and tele and IV fluids and antibiotics. PT in contact isolation . Will photo doc and wet to dry lt hand. RT great toe open to air. Premedicated for lt hand dressing change.PT refused nicotine patch, 1 ppd smoker, stopped meth use 2 months ago per her report but continues daily marijuana approx 9 tokes.
[2018-07-02 05:24] LABS: BASOPHILS ABSOLUTE AUTO 0.05 K/mm3 (0.00-0.23); BASOPHILS PERCENT AUTO 1 % (0-2); EOSINOPHILS PERCENT AUTO 1 % (0-6); Hematocrit 31.8 % (33.0-51.0); Hemoglobin 10.2 g/dL (11.5-16.0); IMMATURE GRAN ABSOLUTE AUTO 0.02 K/mm3 (0.00-0.10); IMMATURE GRAN PERCENT AUTO 0 % (0-1); LYMPHOCYTES ABSOLUTE AUTO 2.95 K/mm3 (0.84-5.20); LYMPHOCYTES PERCENT AUTO 31 % (21-46); MONOCYTES ABSOLUTE AUTO 0.87 K/mm3 (0.16-1.47); MONOCYTES PERCENT AUTO 9 % (4-13); Mean Corpuscular HGB 29.9 pg (26.0-34.0); Mean Corpuscular HGB Conc 32.1 g/dL (31.5-36.5); Mean Corpuscular Volume 93 fL (80-100); Mean Platelet Volume 10.6 fL (9.1-12.4); NEUTROPHILS ABSOLUTE AUTO 5.62 K/mm3 (1.96-9.15); NEUTROPHILS PERCENT AUTO 59 % (41-73); Platelet Count 239 K/mm3 (150-400); RDW Coefficient Variation 12.9 % (11.7-14.2); RDW Standard Deviation 44.2 fL (35.1-46.3); Red Blood Cell Count 3.41 M/mm3 (3.80-5.20); White Blood Cell Count 9.61 K/mm3 (4.00-11.30)
[2018-07-02 05:44] LABS: Anion Gap 7 mmol/L (6-16); Blood Urea Nitrogen 16 mg/dL (8-24); Bun/Creatinine Ratio 27.3 (12.0-20.0); CO2, Blood 27 mmol/L (21-32); Calcium, Blood 8.1 mg/dL (8.5-10.1); Chloride, Blood 103 mmol/L (98-108); Creatinine, Blood 0.59 mg/dL (0.40-1.00); Glomerular Filtration Rate >60 (60-); Glucose, Blood 278 mg/dL (70-99); Potassium, Blood 3.8 mmol/L (3.5-5.5); Sodium, Blood 137 mmol/L (136-145)
--- NOTE | 2018-07-02 06:41 | NUR ---
pt had photodoc of lt hand wound and rt great toe wounds done. photos in chart. lt hand wound care done as per pt direction. pt says she wore shoes that are too small causing rt great toe wound as well as bilat heel wounds. photodoc wounds bilat feet. pt continues to insist she leave floor to smoke. discussed need to stop smoking to promote wound healing and prevent further complications. nsr on tel room air.
--- NOTE | 2018-07-02 14:13 | NUR ---
History, Chart, Medications and Allergies reviewed before start of procedure. Patient confirms NPO status and agrees with scheduled surgery. Last meal 0700 today per patient. Friend, Julio, at bedside.
--- NOTE | 2018-07-02 14:15 | NUR ---
PATIENT TO DAY SURGERY FOR I&D ON R GREAT TOE.
--- NOTE | 2018-07-02 14:30 | NUR ---
C/O 8/10 PAIN TO RIGHT FOOT, BUT STATES SHE IS COMFORTABLE AT THIS TIME. RLE FOOT ELEVATED ON PILLOW FOR COMFORT.
--- NOTE | 2018-07-02 15:53 | NUR ---
07/02/18 1553 Chelle Buenrostro PT ON SCHEDULED ANTIBIOTICS
--- NOTE | 2018-07-02 17:10 | NUR ---
PATIENT ARRIVED BACK FROM OR. S. SR ON TELE WITH A HR OF 87 PER PCU APPLIQUER. PATIENT REPORTS GOOD PAIN CONTROL. DRESSING TO R FOOT REMAINS C/D/I. DENIES ANY NAUSEA. 18G IV T R FA WNL.
--- NOTE | 2018-07-03 06:13 | NUR ---
SHIFT SUMMARY: POST-OP VITALS HAVE BEEN STABLE THIS SHIFT. DRESSING TO R FOOT AND L HAND BOTH C/D/I. PT DOES BECOME VERY ANXIOUS AND TEARFUL, AND WILL GO OUTSIDE TO SMOKE WITHOUT ASKING STAFF TO DISCONNECT FROM IV, OR WITHOUT ANY WARNING. DISCONNECTS SELF FROM IV AND TURNS OFF THE PUMP. SPOKE WITH PT ABOUT ASKING FOR ASSISTANCE FIRST W/O SUCCESS. TELE IN PLACE; NSR @ 87 BPM. TOLERATING ROOM AIR. INDEPEDENT, WHEELING SELF AROUND. CBG @ 172 TONIGHT. ADMINISTERED 5 MG PERCOCET 2X FOR PAIN TO R FOOT. NS RUNNING @ 80 ML/HR. NO OTHER ACUTE CHANGES TO REPORT. WILL CONT TO MONITOR AND PROVIDE CARE UNTIL PRESUMED BY ONCOMING RN.
[2018-07-03 08:24] LABS: BASOPHILS ABSOLUTE AUTO 0.04 K/mm3 (0.00-0.23); BASOPHILS PERCENT AUTO 0 % (0-2); EOSINOPHILS ABSOLUTE AUTO 0.02 K/mm3 (0.00-0.68); EOSINOPHILS PERCENT AUTO 0 % (0-6); Hematocrit 35.2 % (33.0-51.0); Hemoglobin 11.5 g/dL (11.5-16.0); IMMATURE GRAN ABSOLUTE AUTO 0.03 K/mm3 (0.00-0.10); IMMATURE GRAN PERCENT AUTO 0 % (0-1); LYMPHOCYTES ABSOLUTE AUTO 3.18 K/mm3 (0.84-5.20); LYMPHOCYTES PERCENT AUTO 23 % (21-46); MONOCYTES ABSOLUTE AUTO 0.68 K/mm3 (0.16-1.47); MONOCYTES PERCENT AUTO 5 % (4-13); Mean Corpuscular HGB 29.9 pg (26.0-34.0); Mean Corpuscular HGB Conc 32.7 g/dL (31.5-36.5); Mean Corpuscular Volume 92 fL (80-100); Mean Platelet Volume 10.2 fL (9.1-12.4); NEUTROPHILS ABSOLUTE AUTO 9.81 K/mm3 (1.96-9.15); NEUTROPHILS PERCENT AUTO 71 % (41-73); Platelet Count 291 K/mm3 (150-400); RDW Coefficient Variation 12.8 % (11.7-14.2); RDW Standard Deviation 42.5 fL (35.1-46.3); Red Blood Cell Count 3.84 M/mm3 (3.80-5.20); White Blood Cell Count 13.76 K/mm3 (4.00-11.30)
--- NOTE | 2018-07-03 18:01 | NUR ---
PATIENT A/OX4, UP INDEPENDENTLY IN ROOM. DRESSING TO R FOOT REMAINS C/D/I. 18G IV TO R FA WNL, NS @80ML/HR INFUSING. VSS. ACHS BLOOD SUGARS, ADA DIET. REPORTS GOOD PAIN CONTROL. TEARFUL AT TIMES TODAY ABOUT BEING HERE AND SLEPT MOST OF THE DAY. CALLS APPROPRIATELY FOR ASSISTANCE. NO ACUTE CHANGES THIS SHIFT.
--- NOTE | 2018-07-04 07:05 | NUR ---
SHIFT SUMMARY: NO ACUTE CHANGES THIS SHIFT. PT A&O X 4, INDPENDENT IN ROOM. WHEELS SELF OUTSIDE TO SMOKE. TREATED 2X FOR PAIN TO R FOOT. DRESSING TO R FOOT AND L HAND C/D/I. NS RUNNING @ 80 ML/HR. S/O AT BEDSIDE MAJORITY OF NIGHT. WILL CONT TO MONITOR AND PROVIDE CARE UNTIL PRESUMED BY ONCOMING RN.
[2018-07-04 08:41] LABS: Vancomycin, Trough 14.9 ug/mL (5.0-10.0)
--- NOTE | 2018-07-04 17:19 | NUR ---
PATIENT A/OX4, UP INDPENDENTLY IN ROOM. WBAT TO R FOOT. PATIENT SHOWERED TODAY AND TOE PACKED AND REDRESSED BY DR. ALEXANDER. ACHS BLOOD SUGARS, TOLERATING ADA DIET. BLOOD SUGAR 49 BEFORE DINNER, SNACKS AND JUICE GIVEN AND IT CAME UP TO 100. VSS THIS SHIFT. MORE PAINFUL TODAY WITH DRESSING CHANGES, PERCOCET GIVEN TO TREAT. 18G IV TO R FA WNL, SL BETWEEN ABX. TEARFUL AT TIMES TODAY, BUT COOPERATIVE WITH CARE. CALLS APPROPRIATELY FOR ASSISTANCE. CONTINUES TO GO OUTSIDE TO SMOKE SEVERAL TIMES A DAY.
[2018-07-05 05:08] LABS: BASOPHILS ABSOLUTE AUTO 0.07 K/mm3 (0.00-0.23); BASOPHILS PERCENT AUTO 1 % (0-2); EOSINOPHILS ABSOLUTE AUTO 0.13 K/mm3 (0.00-0.68); EOSINOPHILS PERCENT AUTO 2 % (0-6); Hematocrit 36.2 % (33.0-51.0); Hemoglobin 11.6 g/dL (11.5-16.0); IMMATURE GRAN ABSOLUTE AUTO 0.03 K/mm3 (0.00-0.10); IMMATURE GRAN PERCENT AUTO 0 % (0-1); LYMPHOCYTES ABSOLUTE AUTO 4.07 K/mm3 (0.84-5.20); LYMPHOCYTES PERCENT AUTO 47 % (21-46); MONOCYTES ABSOLUTE AUTO 0.72 K/mm3 (0.16-1.47); MONOCYTES PERCENT AUTO 8 % (4-13); Mean Corpuscular HGB 30.7 pg (26.0-34.0); Mean Platelet Volume 10.1 fL (9.1-12.4); NEUTROPHILS ABSOLUTE AUTO 3.69 K/mm3 (1.96-9.15); NEUTROPHILS PERCENT AUTO 42 % (41-73); Platelet Count 323 K/mm3 (150-400); RDW Coefficient Variation 13.2 % (11.7-14.2); RDW Standard Deviation 46.5 fL (35.1-46.3); Red Blood Cell Count 3.78 M/mm3 (3.80-5.20); White Blood Cell Count 8.71 K/mm3 (4.00-11.30)
[2018-07-05 05:10] LABS: Mean Corpuscular Volume 96 fL (80-100)
--- NOTE | 2018-07-05 05:12 | NUR ---
BLOOD SUGAR BLOOD SUGAR CRITICALLY LOW THIS AM @ 42. PT REPORTS THIS IS "NORMAL" AND WILL IMPROVE WITH FOOD. PT PROVIDED c CHEESE + CRACKERS,LISA CRACKERS, AND ICE CREAM. WILL RECHECK BLOOD SUGAR AT 0535.
--- NOTE | 2018-07-05 05:41 | NUR ---
BLOOD SUGAR UP TO 72.
--- NOTE | 2018-07-05 06:40 | NUR ---
SHIFT SUMMARY: PT HAS BEEN PLEASANT AND COOPERATIVE DURING SHIFT, A&O X 4, INDEPENDENT IN ROOM. S/O AT BEDSIDE. CBG THIS AM CRITICALLY LOW @ 42 BUT WAS BACK WNL c SNACKS. PT OUT TO SMOKE SEVERAL TIMES THIS SHIFT. TREATED FOR PAIN 2X. TREATED FOR NAUSEA 1X. DRESSING TO L HAND AND R FOOT IS C/D/I. NO OTHER ACUTE CHANGES TO REPORT THIS SHIFT. WILL CONT TO MONITOR AND PROVIDE CARE UNTIL PRESUMED BY ONCOMING RN.
--- NOTE | 2018-07-05 14:21 | NUR ---
PATIENT GAVE PERMISSION FOR SENIOR BOOKKEEPER TO PROVIDE CARE ON 07/05/18.
--- NOTE | 2018-07-05 18:06 | NUR ---
SHIFT SUMMARY PT COMPLAINED OF PAIN IN HER R FOOT THIS SHIFT, TREATED PER EMAR WITH GOOD EFFECT. HAD WOUND DRESSING ON FOOT CHANGED BY DR ALEXANDER AND SHE CHANGED THE DRESSING ON HER OWN HAND PER HER HOME PROTOCOL, OK'D BY DR ALEXANDER. CBGS WNL BUT LOW SIDE, PT DECLINES TO DECREASE LANTUS AT THIS POINT. INDEPENDENT IN ROOM. BF PRESENT AT BS FOR MOST OF SHIFT. PT LEAVES FLOOR TO SMOKE. WCTM
--- NOTE | 2018-07-06 07:54 | NUR ---
NOC SHIFT SUMMARY THIS PT HAS BEEN PLEASENT AND COOPERATIVE WITH HER CARE. FOLLOWS INSTRUCTION WELL. SHE DOES PREFER TO USE HER HOME INSULIN. FAMILY MEMEBER WILL BRING NEW PEN IN THIS A.M. HER CURRENT PEN HAD RUN OUT. PASSED THIS INFO ON TO DAY NURSE. SHE HAS TAKEN NUMEROUS SMOKE BREAKS DURING THE NIGHT. BOYFRIEND IN ROOM PRESENTLY. HE HAS BEEN POLITE AND CURTIOUS WELL. COMPLAINED OF PAIN THIS MORNING FOR WHICH PERSCRIBE OPIATE MEDICATION WAS GIVEN. PT WAS OBSERVED TO BE RESTING PEACEFULLY AFTER. APPEARS IN NO ACUTE DISTRESS. REPORT GIVEN TO DAY NURSE.
[2018-07-06 09:25] LABS: Creatinine, Blood 0.55 mg/dL (0.40-1.00); Vancomycin, Trough 15.2 ug/mL (5.0-10.0)
--- NOTE | 2018-07-06 10:42 | NUR ---
instructor note. medication administration student locked out. pt getting care. pt nurse advised and aware meds delayed. assited RN pt long acting insultin to phsramacy for label for emar. pain assessment for prn meds pain to right foot trending at 8.
--- NOTE | 2018-07-06 16:45 | NUR ---
SHIFT SUMMARY PT INDEPENDENT IN ROOM AND OUT TO SMOKE. REPORTS SHE IS ONLY TO PLACE WEIGHT ON HER R HEEL. DRESSING PLACED THIS A.M. BY DR. GOODWIN AND HAS REMAINED CDI SINCE CHANGED. PLAN FOR R TOE AMPUTATION TOMORROW. REQUESTING SNACKS BETWEEN MEALS FREQUENTLY. BOYFRIEND WAS IN WITH PT ON ASSESSMENT AND UNTIL 1130 THIS MORNING. PT TEARFUL WHEN HE LEFT REPORTING SHE GETS EMOTIONAL WITH ELEVATED SLOOD SUGARS AND FEARFUL AT TIMES DUE TO PTSD. MEDICATED ONCE TODAY FOR PAIN. REQUESTING SURGICAL BOOT TO PROTECT R FOOT.
--- NOTE | 2018-07-07 04:14 | NUR ---
NOC SHIFT SUMMARY THIS PT HAS BEEN PLEASANT AND COOPERATIVE WITH CARE THIS NIGHT. SHE DID GET UP AND LEAVE HER ROOM SEVERAL TIMES EARLY IN THE NIGHT BUT SINCE APPROX 2330 HAS REMAINED IN BED. SHE HAS BEEN NPO SINCE MIDNIGHT. POWERGLIDE IS IN PLACE AND PATENT IN R UPPER ARM. CURRENTLY SLEEPING, APPEARS IN NO ACUTE DISTRESS. WILL CONTINUE TO MONITOR.
--- NOTE | 2018-07-07 07:59 | NUR ---
BLOOD SUGAR DR. ROJAS CALLED & INFORMED OF PT BLOOD SUGAR OF 59. PT NPO FOR SURGERY THIS AM. INSULIN HELD. D5 ORDERED 1000ML/HR. WILL CONTINUE TO MONITOR.
--- NOTE | 2018-07-07 09:24 | NUR ---
PT INTO SDS VIA BED FROM 358. Patient confirms NPO status and agrees with scheduled surgery. BS ON ARRIVAOL TO ROOM LOW, CALLED AND DISCUSSED WITH DR. KRAMER. HALF AN AMP D50 GIVEN, RECHECK ON BS 118.
--- NOTE | 2018-07-07 12:05 | NUR ---
PT LEFT AFTER SURGERY PT RETURNED FROM SURGERY AT 1145. FIRST SET OF VITALS TAKEN & ARE STABLE. PT ASKED TO GO OUTSIDE TO FIND HER BOYFRIEND AT THIS TIME. IT WAS EXPLAINED TO PT THAT SHE CANNOT LEAVE UNTIL HER VITALS ARE STABLE FOR 2 HOURS. RN LEFT TO CONSULT WITH RN IMMUNOLOGY, CARMEL. AFTER RETURNING TO PT ROOM, PT WAS GONE. PT HAD REVIOUSLY STATED THAT SHE "SNEAKS OUT" WHEN NEEDED. DR. ROJAS NOTIFIED. PT PAGED BACK TO ROOM.
--- NOTE | 2018-07-07 13:08 | NUR ---
PT RETURNED. PT RETURNED TO ROOM AFTER 45 MINUTES. VITALS TAKEN & STABLE. PT BOYFRIEND ASKED FOR A FLUSH FOR HER POWERGLIDE. UPON EXAMINATION OF HER POWERGLIDE, THE CAP WAS MISSING, THE PT HAS BLOOD ON HER GOWN, AND THE TUBING WAS FILLED WITH BLOOD. PT RETURNED FROM SURGERY HOOKED UP TO LR. WITNESSED BY RN WHEN DISCUSSING THAT PT CANNOT LEAVE THE BUUILDING. PT STATES THAT SHE WAS LEFT UNHOOKED AND DID NOT TAMPER WITH HER POWERGLIDE. POWERGLIDE NO LONGER PATENT & REMOVED. NEW IV ACCESS IN THE PROCESS OF BEING OBTAINED. TAMPER TAPE WILL BE USED FROM HERE FORWARD IN PT CARE. SURGICAL SITE CLEAN & DRESSING INTACT. NO SIGNS OF BLEEDING.
--- NOTE | 2018-07-07 13:37 | NUR ---
CONCULTED ON IV LOSS DR. ROJAS STATED SHE DOES NOT THINK PT NEEDS AN IV AT THIS TIME. NO IV ORDER PLACED. ORDERED TOXICOLOGY SCREEN. OBSTETRIC ASSISTANT REPORTED THAT BOYFRIEND CAME OUT OF BATHROOM WITH PT AND STATED THAT [facility]A WAS READY FOR US. VITALS STABLE.
[2018-07-07 14:56] LABS: U Amphetamine Screen Not Detected; U Barbituate Screen Not Detected; U Benzodiazapine Screen Not Detected; U Buprenorphine Screen Not Detected; U Cannabinoids Screen DETECTED; U Cocaine Screen Not Detected; U Methadone Screen Not Detected; U Methamphetamine Screen Not Detected; U Opiates Screen Not Detected; U Oxycodone Screen DETECTED; U Phencyclidine Screen Not Detected; U Propoxyphene Screen Not Detected
--- NOTE | 2018-07-07 17:02 | NUR ---
SHIFT SUMMARY PT RECIEVED R GREAT TOE AMPUTATION THIS AM. PT VITALS STABLE AFTER PROCEDURE. IV ACCESS LOST & ORDER PLACED FOR NO ACCESS NEEDED. SEE PREVIOUS NOTE. PT EDUCATED TO ALERT STAFF BEFORE LEAVING THE BUILDING TO SMOKE. PT STATED SHE UNDERSTOOD. VSS AT THIS TIME. SURGICAL SITE C/D/I WITH NO SIGNS OF BLEEDED. PT MEDICATED FOR PAIN ONCE POST PROCEDURE. TOLERATING WELL. WILL CONTINUE TO MONITOR UTNIL TURNOVER IS COMPLETE. NO OTHER CHANGES IN ASSESSMENT AT THIS TIME.
--- NOTE | 2018-07-07 17:53 | NUR ---
[address] ROJAS NOTIFIED OF PT BLOOD GLUCOSE 429. DR. ROJAS ORDERED AN EXTRA 5 UNITS ON TOP OF THE ORDERED 10 FOR SLIDING SCALE. PT PAIN LEVEL ALSO DISCUSSED. ORDERED OT DOSE OF TORADOL IM. WILL CONTINUE TO MONITOR.
[2018-07-08 04:56] LABS: BASOPHILS ABSOLUTE AUTO 0.06 K/mm3 (0.00-0.23); BASOPHILS PERCENT AUTO 1 % (0-2); EOSINOPHILS ABSOLUTE AUTO 0.12 K/mm3 (0.00-0.68); EOSINOPHILS PERCENT AUTO 1 % (0-6); Hematocrit 35.2 % (33.0-51.0); Hemoglobin 11.1 g/dL (11.5-16.0); IMMATURE GRAN PERCENT AUTO 1 % (0-1); LYMPHOCYTES ABSOLUTE AUTO 3.01 K/mm3 (0.84-5.20); LYMPHOCYTES PERCENT AUTO 32 % (21-46); MONOCYTES ABSOLUTE AUTO 0.76 K/mm3 (0.16-1.47); MONOCYTES PERCENT AUTO 8 % (4-13); Mean Corpuscular HGB 30.2 pg (26.0-34.0); Mean Corpuscular HGB Conc 31.5 g/dL (31.5-36.5); Mean Corpuscular Volume 96 fL (80-100); Mean Platelet Volume 9.7 fL (9.1-12.4); NEUTROPHILS ABSOLUTE AUTO 5.37 K/mm3 (1.96-9.15); NEUTROPHILS PERCENT AUTO 57 % (41-73); Platelet Count 324 K/mm3 (150-400); RDW Coefficient Variation 13.4 % (11.7-14.2); RDW Standard Deviation 47.7 fL (35.1-46.3); Red Blood Cell Count 3.67 M/mm3 (3.80-5.20); White Blood Cell Count 9.42 K/mm3 (4.00-11.30)
--- NOTE | 2018-07-08 05:02 | NUR ---
SHIFT SUMMARY PT SLEPT FAIR DURING THE NIGHT, WAS UP AND OUTSIDE A FEW TIMES THIS SHIFT. MEDICATED X1 WITH PO PAIN MEDICATION. PT REQUESTING BLOOD SUGAR TO BE CHECKED DURING THE NIGHT, BLOOD SUGAR 288. NO ACUTE CHANGES NOTED, WILL CONTINUE TO MONITOR.
[2018-07-08 05:17] LABS: Alanine Aminotransfer (ALT/SGP 26 U/L (12-78); Albumin, Blood 2.9 g/dL (3.4-5.0); Albumin/Globulin Ratio 0.8 (0.8-1.8); Alk Phos 116 U/L (50-136); Anion Gap 6 mmol/L (6-16); Aspartate Aminotrans (AST/SGOT 14 U/L (12-37); Bilirubin, Total 0.2 mg/dL (0.1-1.0); Blood Urea Nitrogen 27 mg/dL (8-24); Bun/Creatinine Ratio 38.7 (12.0-20.0); CO2, Blood 28 mmol/L (21-32); Calcium, Blood 8.7 mg/dL (8.5-10.1); Chloride, Blood 102 mmol/L (98-108); Globulin, Blood 3.8 g/dL (2.2-4.0); Glomerular Filtration Rate >60 (60-); Glucose, Blood 299 mg/dL (70-99); Potassium, Blood 4.7 mmol/L (3.5-5.5); Sodium, Blood 136 mmol/L (136-145); Total Protein, Blood 6.7 g/dL (6.4-8.2)
--- NOTE | 2018-07-08 10:18 | NUR ---
Initial Visit: Palliative Care Consult for AD/POLST. Pt is A&O and reports 6/10 pain. She reports the pain is at tolerable level. She sanchez anxiety at this time but appears mildly anxious. Pt reports that she is a religous person but does not have any particular denomination. She states that she would like a visit from a meat process worker. Engaged in therapeutic conversation about goals of care including AD/POLST. Pt reports that Dr Perez educated her on prognosis of amputation and encouraged her to consider life style changes including diabetes management and quitting smoking. Pt reports that she is in between PCP at the moment but has plan to establish with a new PCP. Discussed advanced directives and Pt reports already obtaining forms and will discuss with family before completing. Pt reports no concerns at this time. Spoke with Pt's nurse Marika and she reports no concerns at this time. Plan is to place spiritual care consult and remain available.
[2018-07-08] MEDS ORDERED: Percocet 5-3251 EACH PO (13:22)
[2018-07-08] MEDS ORDERED: Bactrim 400-801 EACH PO (13:24)
--- NOTE | 2018-07-08 15:08 | NUR ---
DISCHARGE NOTE PT DISCHARGED TO HOME WITH MULTIPLE FAMILY MEMBERS PRESENT. PT EDUCATED ON MEDCIATIONS, FOLLOWING UP WITH FLORES AND PCP, DRESSING CHANGES AND MEDICATIONS. PT LEFT ROOM VIA WHEELCHAIR AND RN ESCORT JUST PRIOR TO THIS NOTE AT ABOUT 1500.
--- NOTE | 2018-07-08 17:18 | NUR ---
Jane was talkative and appeared restless. She spoke about problems with her family and her frustrations. She was deeply appreciaitive of spiritual counseling center director and prayer. she asked that I return to talk more when she was alone in room. Upon returning a few hours later, she had been discharged.
== END 2018-07-08 15:09 | disposition home or self-care (01) | DRG 617 ==
LOC: ER 18:48 → MEDS 22:18 → ENPENDDIS 07-08 12:30 → MEDS 07-08 15:09
PROVIDERS: Emergency Medicine; Internal Medicine; Nurse Practitioner Acute Care; Orthopaedic Surgery; Podiatrist Foot & Ankle Surgery; ADMIT Internal Medicine
PROC: 0QBQ0ZZ Excision of Right Toe Phalanx, Open Approach (ICD-10-PCS; 2018-07-02)
PROC: 0Y6P0Z0 Detachment at Right 1st Toe, Complete, Open Approach (ICD-10-PCS; principal; 2018-07-07 10:15)
DX: E11.69 Type 2 diabetes mellitus with other specified complication (principal); M86.8X7 Other osteomyelitis, ankle and foot; E11.52 Type 2 diabetes mellitus with diabetic peripheral angiopathy with gangrene; I96 Gangrene, not elsewhere classified; L03.114 Cellulitis of left upper limb; E11.628 Type 2 diabetes mellitus with other skin complications; L03.031 Cellulitis of right toe; B95.7 Other staphylococcus as the cause of diseases classified elsewhere; Z79.4 Long term (current) use of insulin; F19.10 Other psychoactive substance abuse, uncomplicated; F32.9 Major depressive disorder, single episode, unspecified; I10 Essential (primary) hypertension; F41.9 Anxiety disorder, unspecified; F17.210 Nicotine dependence, cigarettes, uncomplicated; J45.909 Unspecified asthma, uncomplicated; G40.909 Epilepsy, unspecified, not intractable, without status epilepticus; E11.42 Type 2 diabetes mellitus with diabetic polyneuropathy
CPT/HCPCS: 36415; 73720; 80048; 80053; 80202; 82565; 82947; 83605; 85025; 85651; 86140; 87040; 87070; 87071; 87075; 87077; 87147; 87186; 87205; 88305; 96365; 96366; 96367; 99283-25; 99284-25; A9577; C1751; J1100; J1885; J2250; J2370; J2405; J2543; J3010; J3370; J7030; J7050; J7070; J7120

== ENCOUNTER 2018-07-31 17:30 | Emergency (ER) | payer OTHER ==
[~2018-07-31] VITALS: Ht 172.7 cm; Wt 54.4 kg
[~2018-07-31 17:30] MED LIST changes: +Bactrim 400-801 EACH PO
[2018-07-31 18:18] LABS: BASOPHILS ABSOLUTE AUTO 0.05 K/mm3 (0.00-0.23); BASOPHILS PERCENT AUTO 0 % (0-2); EOSINOPHILS ABSOLUTE AUTO 0.05 K/mm3 (0.00-0.68); EOSINOPHILS PERCENT AUTO 0 % (0-6); Hematocrit 39.4 % (33.0-51.0); Hemoglobin 12.9 g/dL (11.5-16.0); IMMATURE GRAN ABSOLUTE AUTO 0.04 K/mm3 (0.00-0.10); IMMATURE GRAN PERCENT AUTO 0 % (0-1); LYMPHOCYTES ABSOLUTE AUTO 2.98 K/mm3 (0.84-5.20); LYMPHOCYTES PERCENT AUTO 24 % (21-46); MONOCYTES ABSOLUTE AUTO 0.73 K/mm3 (0.16-1.47); MONOCYTES PERCENT AUTO 6 % (4-13); Mean Corpuscular HGB 30.2 pg (26.0-34.0); Mean Corpuscular HGB Conc 32.7 g/dL (31.5-36.5); Mean Corpuscular Volume 92 fL (80-100); Mean Platelet Volume 9.9 fL (9.1-12.4); NEUTROPHILS PERCENT AUTO 69 % (41-73); Platelet Count 338 K/mm3 (150-400); RDW Coefficient Variation 12.9 % (11.7-14.2); RDW Standard Deviation 43.6 fL (35.1-46.3); Red Blood Cell Count 4.27 M/mm3 (3.80-5.20); White Blood Cell Count 12.55 K/mm3 (4.00-11.30)
[2018-07-31 19:03] LABS: Alanine Aminotransfer (ALT/SGP 22 U/L (12-78); Albumin, Blood 3.7 g/dL (3.4-5.0); Albumin/Globulin Ratio 0.9 (0.8-1.8); Alk Phos 112 U/L (50-136); Anion Gap 7 mmol/L (6-16); Aspartate Aminotrans (AST/SGOT 13 U/L (12-37); Bilirubin, Total 0.4 mg/dL (0.1-1.0); Blood Urea Nitrogen 12 mg/dL (8-24); Bun/Creatinine Ratio 28.3 (12.0-20.0); CO2, Blood 27 mmol/L (21-32); Calcium, Blood 9.2 mg/dL (8.5-10.1); Chloride, Blood 102 mmol/L (98-108); Creatinine, Blood 0.42 mg/dL (0.40-1.00); Glomerular Filtration Rate >60 (60-); Glucose, Blood 298 mg/dL (70-99); Potassium, Blood 3.8 mmol/L (3.5-5.5); Sodium, Blood 136 mmol/L (136-145); Total Protein, Blood 7.7 g/dL (6.4-8.2)
== END 2018-07-31 19:17 | disposition home or self-care (01) ==
LOC: ER 17:30
PROVIDERS: Emergency Medicine
DX: R10.11 Right upper quadrant pain (principal); E11.9 Type 2 diabetes mellitus without complications; F41.9 Anxiety disorder, unspecified; F32.9 Major depressive disorder, single episode, unspecified; I10 Essential (primary) hypertension; G40.909 Epilepsy, unspecified, not intractable, without status epilepticus; F17.210 Nicotine dependence, cigarettes, uncomplicated
CPT/HCPCS: 36415; 80053; 85025; 96361; 96374; 96375; 99284-25; J1200; J1630; J7030

== ENCOUNTER 2018-08-02 17:38 | Emergency (ER) | payer OTHER ==
[~2018-08-02] VITALS: Ht 172.7 cm; Wt 59.0 kg
[2018-08-02 18:23] LABS: BASOPHILS ABSOLUTE AUTO 0.06 K/mm3 (0.00-0.23); BASOPHILS PERCENT AUTO 1 % (0-2); EOSINOPHILS ABSOLUTE AUTO 0.06 K/mm3 (0.00-0.68); EOSINOPHILS PERCENT AUTO 1 % (0-6); Hematocrit 42.5 % (33.0-51.0); Hemoglobin 14.2 g/dL (11.5-16.0); IMMATURE GRAN ABSOLUTE AUTO 0.06 K/mm3 (0.00-0.10); IMMATURE GRAN PERCENT AUTO 1 % (0-1); LYMPHOCYTES ABSOLUTE AUTO 3.17 K/mm3 (0.84-5.20); LYMPHOCYTES PERCENT AUTO 24 % (21-46); MONOCYTES ABSOLUTE AUTO 0.57 K/mm3 (0.16-1.47); MONOCYTES PERCENT AUTO 4 % (4-13); Mean Corpuscular HGB 29.8 pg (26.0-34.0); Mean Corpuscular HGB Conc 33.4 g/dL (31.5-36.5); Mean Platelet Volume 9.7 fL (9.1-12.4); NEUTROPHILS ABSOLUTE AUTO 9.25 K/mm3 (1.96-9.15); NEUTROPHILS PERCENT AUTO 70 % (41-73); Platelet Count 405 K/mm3 (150-400); RDW Coefficient Variation 12.6 % (11.7-14.2); RDW Standard Deviation 41.9 fL (35.1-46.3); Red Blood Cell Count 4.76 M/mm3 (3.80-5.20); White Blood Cell Count 13.17 K/mm3 (4.00-11.30)
[2018-08-02 18:43] LABS: Mean Corpuscular Volume 89 fL (80-100)
[2018-08-02 18:51] LABS: Alanine Aminotransfer (ALT/SGP 21 U/L (12-78); Albumin/Globulin Ratio 0.9 (0.8-1.8); Alk Phos 126 U/L (50-136); Anion Gap 11 mmol/L (6-16); Aspartate Aminotrans (AST/SGOT 9 U/L (12-37); Bilirubin, Total 0.6 mg/dL (0.1-1.0); Blood Urea Nitrogen 11 mg/dL (8-24); Bun/Creatinine Ratio 23.8 (12.0-20.0); CO2, Blood 23 mmol/L (21-32); Calcium, Blood 9.9 mg/dL (8.5-10.1); Chloride, Blood 98 mmol/L (98-108); Creatinine, Blood 0.46 mg/dL (0.40-1.00); Globulin, Blood 4.6 g/dL (2.2-4.0); Glomerular Filtration Rate >60 (60-); Glucose, Blood 312 mg/dL (70-99); Potassium, Blood 3.9 mmol/L (3.5-5.5); Sodium, Blood 132 mmol/L (136-145); Total Protein, Blood 8.6 g/dL (6.4-8.2)
[2018-08-02] MEDS ORDERED: COMPAZINE10 MG PO (21:33)
== END 2018-08-02 22:38 | disposition home or self-care (01) ==
LOC: ER 17:38
PROVIDERS: Physician Assistant
DX: R10.11 Right upper quadrant pain (principal); R11.2 Nausea with vomiting, unspecified; E11.9 Type 2 diabetes mellitus without complications; F41.9 Anxiety disorder, unspecified; F32.9 Major depressive disorder, single episode, unspecified; I10 Essential (primary) hypertension; G43.909 Migraine, unspecified, not intractable, without status migrainosus; F17.210 Nicotine dependence, cigarettes, uncomplicated
CPT/HCPCS: 36415; 74176; 80053; 83690; 85025; 96361; 96374; 96375; 99284-25; J1200; J1630; J2405; J7030

== ENCOUNTER 2018-09-15 23:07 | Inpatient (IN) | payer OTHER ==
[~2018-09-15] VITALS: Ht 167.6 cm; Wt 67.2 kg
[~2018-09-15 23:07] MED LIST changes: +COMPAZINE10 MG PO
[2018-09-15 23:40] LABS: BASOPHILS ABSOLUTE AUTO 0.07 K/mm3 (0.00-0.23); BASOPHILS PERCENT AUTO 0 % (0-2); EOSINOPHILS ABSOLUTE AUTO 0.03 K/mm3 (0.00-0.68); EOSINOPHILS PERCENT AUTO 0 % (0-6); Hematocrit 46.9 % (33.0-51.0); Hemoglobin 15.5 g/dL (11.5-16.0); IMMATURE GRAN ABSOLUTE AUTO 1.82 K/mm3 (0.00-0.10); IMMATURE GRAN PERCENT AUTO 4 % (0-1); LYMPHOCYTES ABSOLUTE AUTO 6.14 K/mm3 (0.84-5.20); LYMPHOCYTES PERCENT AUTO 12 % (21-46); MONOCYTES ABSOLUTE AUTO 3.37 K/mm3 (0.16-1.47); MONOCYTES PERCENT AUTO 7 % (4-13); Mean Corpuscular HGB 29.5 pg (26.0-34.0); Mean Corpuscular Volume 89 fL (80-100); Mean Platelet Volume 11.3 fL (9.1-12.4); NEUTROPHILS ABSOLUTE AUTO 38.67 K/mm3 (1.96-9.15); NEUTROPHILS PERCENT AUTO 77 % (41-73); Platelet Count 408 K/mm3 (150-400); RDW Standard Deviation 39.5 fL (35.1-46.3); Red Blood Cell Count 5.25 M/mm3 (3.80-5.20)
[2018-09-15 23:46] LABS: PCO2 Venous 19.9 mmHg (38-42); PO2 Venous 87.7 mmHg (38-42); pH Blood Venous 6.82 (7.34-7.37)
[2018-09-15 23:47] LABS: Base Excess Venous -30.9 mmol/L; Bicarbonate Venous 5.6 mmol/L (24.0-30.0)
[2018-09-15 23:58] LABS: BAND PERCENT MAN 2 % (0-8); BASOPHILS PERCENT MAN 1 % (0-2); EOSINOPHILS PERCENT MAN 0 % (0-6); LYMPHOCYTES ABSOLUTE MAN 5.51 K/mm3 (0.84-5.20); LYMPHOCYTES PERCENT MAN 11 % (21-46); METAMYELOCYTE PERCENT MAN 1 % (0-0); MONOCYTES PERCENT MAN 5 % (4-13); MYELOCYTE PERCENT MAN 1 % (0-0); NEUTROPHILS ABSOLUTE MAN 39.07 K/mm3 (1.96-9.15); PROMYELOCYTE PERCENT MAN 1 % (0-0); SEG NEUTROPHILS PERCENT MAN 76 % (41-73); TOTAL CELLS COUNTED 100
[2018-09-16 00:01] LABS: OTHER CELL PERCENT MAN 2 % (0-0)
[2018-09-16 00:07] LABS: Albumin, Blood 3.5 g/dL (3.4-5.0); Albumin/Globulin Ratio 0.9 (0.8-1.8); Bilirubin, Total 0.4 mg/dL (0.1-1.0); Bun/Creatinine Ratio 57.6 (12.0-20.0); Calcium, Blood 7.8 mg/dL (8.5-10.1); Creatinine, Blood 1.25 mg/dL (0.40-1.00); Globulin, Blood 3.9 g/dL (2.2-4.0); Potassium, Blood 6.3 mmol/L (3.5-5.5); Total Protein, Blood 7.4 g/dL (6.4-8.2)
[2018-09-16 00:16] LABS: Appearance, Urine Hazy (Clear); Bilirubin, Urine Neg (Neg); Blood, Urine 5+ (Neg); Color, Urine Yellow (P-Yellow); Glucose Qualitative, Urine 4+ (Neg); Ketones, Urine 3+ (Neg); Leukocyte Esterase, Urine Neg (Neg); Nitrite, Urine Neg (Neg); Protein, Urine 2+ (Neg); Source, Urine Clean Catch; Specific Gravity, Urine 1.015 (1.003-1.022); Urobilinogen, Urine NORM (Normal)
[2018-09-16 00:19] LABS: Bacteria Mod /hpf; Red Blood Cells, Urine 0-2 /hpf (0-2); Squamous Epithelial Cells Few /hpf (Few); White Blood Cells, Urine 0-2 /hpf (0-5)
[2018-09-16 00:20] LABS: Amorphous Mod (0-Heavy); Mucus Light (0-Heavy)
[2018-09-16 02:18] LABS: U Amphetamine Screen Not Detected; U Barbituate Screen Not Detected; U Benzodiazapine Screen Not Detected; U Buprenorphine Screen Not Detected; U Cannabinoids Screen Not Detected; U Cocaine Screen Not Detected; U Methadone Screen Not Detected; U Methamphetamine Screen Not Detected; U Opiates Screen Not Detected; U Oxycodone Screen Not Detected; U Phencyclidine Screen Not Detected; U Propoxyphene Screen Not Detected
[2018-09-16 02:20] LABS: Glucose, Blood 823 mg/dL (70-99)
[2018-09-16 03:09] LABS: Hematocrit 42.6 % (33.0-51.0); Hemoglobin 14.6 g/dL (11.5-16.0); Mean Corpuscular HGB 29.8 pg (26.0-34.0); Mean Corpuscular HGB Conc 34.3 g/dL (31.5-36.5); Mean Corpuscular Volume 87 fL (80-100); Mean Platelet Volume 11.2 fL (9.1-12.4); Platelet Count 335 K/mm3 (150-400); RDW Coefficient Variation 11.8 % (11.7-14.2); RDW Standard Deviation 37.7 fL (35.1-46.3); White Blood Cell Count 44.28 K/mm3 (4.00-11.30)
[2018-09-16 03:30] LABS: Glucose, Blood 717 mg/dL (70-99)
[2018-09-16 03:31] LABS: Albumin, Blood 3.2 g/dL (3.4-5.0); Albumin/Globulin Ratio 0.9 (0.8-1.8); Bilirubin, Total 0.4 mg/dL (0.1-1.0); Calcium, Blood 7.6 mg/dL (8.5-10.1); Creatinine, Blood 1.08 mg/dL (0.40-1.00); Globulin, Blood 3.5 g/dL (2.2-4.0); Total Protein, Blood 6.7 g/dL (6.4-8.2)
[2018-09-16 04:46] LABS: Glucose, Blood 643 mg/dL (70-99)
[2018-09-16 05:55] LABS: Glucose (ISTAT POC) 548 mg/dL (70-99)
--- NOTE | 2018-09-16 06:30 | NUR ---
ADMIT/SHIFT SUMMARY PT ARRIVED TO ICU 12 VIA ER BED AT 0125. PT IS LETHARGIC, BUT RESPONDS TO VERBAL STIMULI AND IS ALERT AND ORIENTED. PT WITH RR 26-30, ON ROOM AIR. VITAL SIGNS STABLE THROUGHOUT THE SHIFT. INSULIN GTT STARTED AT 4 UNITS/HR AND TITRATED TO 5 UNITS/HR. BICARB INFUSING AT 75 ML/HR. MEHTA IN PLACE WITH CLEAR YELLOW OUTPUT NOTED. PT HYPOTHERMIC UPON ARRIVAL. PT REMAINS WITH BEAR HUGGER IN PLACE AT THIS TIME. WILL CONTINUE TO MONITOR AND REPORT OFF TO ONCOMING RN.
--- NOTE | 2018-09-16 07:28 | NUR ---
ASSUMED CARE: PT RESTING IN BED, WAKES TO TALK TO STAFF. STATES MOUTH IS DRY AND HER THROAT HURTS FROM ALL THE VOMITING. SODIUM BICARB AND INSULIN GTT AT 5 UNITS/HR RUNNING. NO ACUTE NEEDS OR CONCERNS AT THIS TIME.
--- NOTE | 2018-09-16 10:10 | NUR ---
ATTEMPTED TO OFFER BATH AND ASK HEALTH HISTORY QUESTIONS. PT SLEEPING VERY HARD AT THIS TIME. WILL ATTEMPT AGAIN LATER
[2018-09-16 12:53] LABS: Anion Gap 15 mmol/L (6-16); Blood Urea Nitrogen 50 mg/dL (8-24); Bun/Creatinine Ratio 69.1 (12.0-20.0); CO2, Blood 13 mmol/L (21-32); Calcium, Blood 6.9 mg/dL (8.5-10.1); Chloride, Blood 109 mmol/L (98-108); Creatinine, Blood 0.72 mg/dL (0.40-1.00); Glomerular Filtration Rate >60 (60-); Glucose, Blood 288 mg/dL (70-99); Potassium, Blood 3.7 mmol/L (3.5-5.5)
[2018-09-16 12:56] LABS: Sodium, Blood 137 mmol/L (136-145)
--- NOTE | 2018-09-16 13:13 | NUR ---
DR RIVERS AWARE OF LATEST CMP RESULT. TO PUT IN NEW ORDERS BUT WISHES FOR FLUIDS AND INSULIN GTT TO REMAIN AT THIS TIME.
[2018-09-16] MEDS ORDERED: GABA800 PO (14:22)
--- NOTE | 2018-09-16 14:45 | NUR ---
TRANSFERRED CARE TO SOPHY KINGSLEY. PT RESTING QUIETLY IN BED. NO NEEDS AT THIS TIME.
--- NOTE | 2018-09-16 15:48 | NUR ---
1500-CARE ASSUMED OF PT. PT ASSESSED. C/O MILD NAUSEA, DENIES C/O PAIN. RIGHT SECOND TOE WITH CLOSED SORE; WILL TAKE A PICTURE. 1/2 NS AT 100 INFUSING; CHANGED TO D5 1/2NS AT 10OCC/HR PER DR ORDERS. INSULIN GTT INCRESAED FROM 2 UNITS TO 3UNITS WITH THE ADDITION OF THE D5. PT SLEEPING, AROUSES TO VOICE, STARTED CRYING, "IM FEEL SO TERRIBLE, I'M MISERABLE", BUT AGAIN DENIED PAIN. BT'S HYPERACTIVE, LUNGS CLEAR AND ON RA. BP STABLE, SINUS TACH AT 110.
--- NOTE | 2018-09-16 16:46 | NUR ---
PT GIVEN ZOFRAN FOR RETCHING W/O EMESIS. 2ND RIGHT TOE APPEARS NECROTIC AT DISTAL END, PICTURES TAKEN, TOE WRAPPED IN ZEROFORM AND GAUZE. TOE DRY W/O ODOR, AREA SLIGHTLY RED AND WARM. GREAT TOE HAS ONE REMAINING SUTURE AT DISTAL END.
--- NOTE | 2018-09-16 17:15 | NUR ---
DR RIVERS NOTIFIED OF WOUND, DR SWENSON CONSULTED, I SPOKE W HIM DIRECTLY, HE WILL SEE THE PT IN THE AM.
[2018-09-16 18:42] LABS: Anion Gap 9 mmol/L (6-16); Blood Urea Nitrogen 33 mg/dL (8-24); Bun/Creatinine Ratio 68.3 (12.0-20.0); CO2, Blood 18 mmol/L (21-32); Calcium, Blood 6.5 mg/dL (8.5-10.1); Chloride, Blood 109 mmol/L (98-108); Creatinine, Blood 0.48 mg/dL (0.40-1.00); Glomerular Filtration Rate >60 (60-); Glucose, Blood 525 mg/dL (70-99); Sodium, Blood 136 mmol/L (136-145)
--- NOTE | 2018-09-16 19:40 | NUR ---
LAB BLOOD GLUCOSE CAME BACK AT 525. RECENT POCT CBG RESULTS WERE 185 FROM BLOOD PULLED FROM SMALL IV ON LEFT HAND. LAB DRAW BLOOD CAME FROM NEW IV START TO LEFT FOREARM. CBG REPEATED USING BLOOD FROM NEW 18G RA SITE WITH A RESULT THAT REFLECTED LAB DRAW; 484. BLOOD FROM SMALL LEFT HAND IV WAS GIVING INACCURATE LOW RESULTS. DR RIVERS CALLED AND NOTIFIED. ONCOMING RN NOTIFIED. TO CLARIFY LAB DRAW BLOOD SPECIMIN WAS FROM IV START PRIOR TO FLUSHING IV WITH SALINE, IMMEDIATELY AFTER IV PLACED. D5 1/2 NS WILL BE DC'D UNTIL BS <250. INSULIN GTT INCREASED FROM 3UNITS/HR TO 5UNITS/HR. K+ REPLACEMENT ORDERD. IONIZED CA ORDERED. PT TO BE SWITCHED TO LANTUS AND SLIDING SCALE WHEN BS STABLIZE AND PT IS ABLE TO TAKE PO W/O N/V.
--- NOTE | 2018-09-16 20:52 | NUR ---
ASSUMED CARE BEDSIDE REPORT RECIEVED. PT IS RESTING QUIETLY UPON ENTERING ROOM. PT AROUSES TO VERBAL STIMULI EASILY. PT IS ALERT, ORIENTED, AND TEARFUL. PT DENIES PAIN OR NAUSEA AT THIS TIME. VITAL SIGNS STABLE, PT ON ROOM AIR. PT WITH INSULIN GTT INFUSING AT 5 UNITS/HR, D5 1/2 NS AT 100 ML/HR, AND ZOSYN IVPB. PT WITH MEHTA IN PLACE WITH YELLOW OUTPUT NOTED. DRESSINGS TO RIGHT NECROTIC TOE C/D/I. PT REPOSITIONS SELF IN BED INDEPENDENTLY. WILL CONTINUE TO MONITOR.
[2018-09-16 23:59] LABS: Anion Gap 10 mmol/L (6-16); Blood Urea Nitrogen 29 mg/dL (8-24); Bun/Creatinine Ratio 55.3 (12.0-20.0); CO2, Blood 20 mmol/L (21-32); Calcium, Blood 7.3 mg/dL (8.5-10.1); Chloride, Blood 113 mmol/L (98-108); Creatinine, Blood 0.52 mg/dL (0.40-1.00); Glomerular Filtration Rate >60 (60-); Glucose, Blood 188 mg/dL (70-99); Potassium, Blood 4.2 mmol/L (3.5-5.5); Sodium, Blood 143 mmol/L (136-145)
[2018-09-17 05:45] LABS: BASOPHILS ABSOLUTE AUTO 0.02 K/mm3 (0.00-0.23); BASOPHILS PERCENT AUTO 0 % (0-2); EOSINOPHILS PERCENT AUTO 0 % (0-6); Hematocrit 31.2 % (33.0-51.0); Hemoglobin 11.2 g/dL (11.5-16.0); IMMATURE GRAN ABSOLUTE AUTO 0.14 K/mm3 (0.00-0.10); IMMATURE GRAN PERCENT AUTO 1 % (0-1); LYMPHOCYTES ABSOLUTE AUTO 1.02 K/mm3 (0.84-5.20); LYMPHOCYTES PERCENT AUTO 7 % (21-46); MONOCYTES ABSOLUTE AUTO 1.06 K/mm3 (0.16-1.47); MONOCYTES PERCENT AUTO 7 % (4-13); Mean Corpuscular HGB 29.7 pg (26.0-34.0); Mean Corpuscular HGB Conc 35.9 g/dL (31.5-36.5); NEUTROPHILS ABSOLUTE AUTO 13.35 K/mm3 (1.96-9.15); NEUTROPHILS PERCENT AUTO 86 % (41-73); Platelet Count 209 K/mm3 (150-400); RDW Coefficient Variation 12.5 % (11.7-14.2); RDW Standard Deviation 37.8 fL (35.1-46.3); Red Blood Cell Count 3.77 M/mm3 (3.80-5.20); White Blood Cell Count 15.59 K/mm3 (4.00-11.30)
[2018-09-17 05:47] LABS: Mean Corpuscular Volume 83 fL (80-100)
--- NOTE | 2018-09-17 06:02 | NUR ---
SHIFT SUMMARY NO ACUTE CHANGES THIS SHIFT. PT HAS REMAINED ALERT AND ORIENTED WHEN AWAKE. PT HAS DENIED PAIN OR NAUSEA. PT TRANSITIONED OFF INSULIN GTT TO SLIDING SCALE. NS INFUSING AT 125 ML/HR. PT TAKING PO FLUID INTAKE WELL AT THIS TIME. VITAL SIGNS HAVE REMAINED STABLE. MEHTA REMAINS IN PLACE WITH GOOD URINE OUTPUT. RIGHT NECROTIC TOE REMAINS UNCHANGED. WILL CONTINUE TO MONITOR AND REPORT OFF TO ONCOMING RN.
[2018-09-17 06:03] LABS: Anion Gap 11 mmol/L (6-16); Blood Urea Nitrogen 23 mg/dL (8-24); Bun/Creatinine Ratio 42.3 (12.0-20.0); CO2, Blood 18 mmol/L (21-32); Calcium, Blood 7.3 mg/dL (8.5-10.1); Chloride, Blood 112 mmol/L (98-108); Creatinine, Blood 0.54 mg/dL (0.40-1.00); Glomerular Filtration Rate >60 (60-); Glucose, Blood 231 mg/dL (70-99); Potassium, Blood 3.7 mmol/L (3.5-5.5); Sodium, Blood 141 mmol/L (136-145)
[2018-09-17 06:04] LABS: Albumin, Blood 2.4 g/dL (3.4-5.0); Anion Gap 10 mmol/L (6-16); Blood Urea Nitrogen 23 mg/dL (8-24); Bun/Creatinine Ratio 41.7 (12.0-20.0); CO2, Blood 18 mmol/L (21-32); Calcium, Blood 7.3 mg/dL (8.5-10.1); Chloride, Blood 112 mmol/L (98-108); Creatinine, Blood 0.55 mg/dL (0.40-1.00); Glomerular Filtration Rate >60 (60-); Glucose, Blood 223 mg/dL (70-99); Phosphorus, Blood 1.5 mg/dL (2.5-4.9); Potassium, Blood 3.7 mmol/L (3.5-5.5); Sodium, Blood 140 mmol/L (136-145)
--- NOTE | 2018-09-17 07:14 | NUR ---
ASSUMED CARE: PT RESTING QUIETLY AT THIS TIME. NS @ 125 RUNNING CURRENTLY. VSS. NO ACUTE NEEDS OR CONCERNS AT PRESENT
--- NOTE | 2018-09-17 10:42 | NUR ---
CALL TO DR RIVERS TO DISCUSS PT'S STATUS. STATES SHE WILL REVIEW CHART AND MAKE FURTHER ORDERS. PT HAS NOT HAD ANY BMS SINCE ORDER PLACED YESTERDAY AM. ORDER TO DC. PT REMAINS IN BED, RESTING
--- NOTE | 2018-09-17 11:55 | NUR ---
PT STATES SHE CONTINUES TO FEEL NAUSEATED BUT WANTED TO TRY SOME BROTH AND APPLE JUICE. STATES IT MADE HER STOMACH HURT. REPOSITIONS SELF IN BED BUT STATES SHE DOES NOT FEEL LIKE GETTING OUT OF BED FOR SHOWER. MEHTA CATH REMOVED AND PT AGREEABLE TO USING BSC. NO FURTHER NEEDS AT THIS TIME
--- NOTE | 2018-09-17 16:35 | NUR ---
REPORT GIVEN TO GAB KINGSLEY. PT TRANSFERRED TO ROOM 336 VIA WHEEL CHAIR. NO FURTHER NEEDS OR CONCERNS AT THIS TIME.
--- NOTE | 2018-09-17 17:54 | NUR ---
SHIFT SUMMARY- PT ICU TRANSFER THIS PM. PT ARRIVED AT 1612 TO ROOM VIA WHEELCHAIR. PT DENIES PAIN. DENIES N/V. DENIES SOB. RESP E/U ON RA. DR. RODRIGUEZ IN TO SEE PT TODAY. PT HAD X-RAY OF 2ND TOE ON LEFT FOOT. DR. RODRIGUEZ REPORTS PT COULD POSSIBLY HAVE INFECTION IN THE BONE OF THAT TOE AND TO MAKE PT NPO AFTER 1AM FOR POSSIBLE PROCEDURE TOMMORROW. SBA TO THE BSC. NO OTHER SIGNIFICANT CHANGES THIS SHIFT.
[2018-09-17 18:08] LABS: Vancomycin, Trough 9.7 ug/mL (5.0-10.0)
[2018-09-18 04:51] LABS: BASOPHILS ABSOLUTE AUTO 0.01 K/mm3 (0.00-0.23); BASOPHILS PERCENT AUTO 0 % (0-2); EOSINOPHILS ABSOLUTE AUTO 0.01 K/mm3 (0.00-0.68); EOSINOPHILS PERCENT AUTO 0 % (0-6); Hematocrit 26.6 % (33.0-51.0); Hemoglobin 9.5 g/dL (11.5-16.0); IMMATURE GRAN ABSOLUTE AUTO 0.04 K/mm3 (0.00-0.10); IMMATURE GRAN PERCENT AUTO 0 % (0-1); LYMPHOCYTES ABSOLUTE AUTO 2.11 K/mm3 (0.84-5.20); LYMPHOCYTES PERCENT AUTO 19 % (21-46); MONOCYTES PERCENT AUTO 10 % (4-13); Mean Corpuscular HGB 29.9 pg (26.0-34.0); Mean Corpuscular HGB Conc 35.7 g/dL (31.5-36.5); Mean Corpuscular Volume 84 fL (80-100); Mean Platelet Volume 10.6 fL (9.1-12.4); NEUTROPHILS ABSOLUTE AUTO 7.98 K/mm3 (1.96-9.15); NEUTROPHILS PERCENT AUTO 71 % (41-73); Platelet Count 158 K/mm3 (150-400); RDW Coefficient Variation 13.2 % (11.7-14.2); RDW Standard Deviation 40.8 fL (35.1-46.3); Red Blood Cell Count 3.18 M/mm3 (3.80-5.20); White Blood Cell Count 11.25 K/mm3 (4.00-11.30)
[2018-09-18 05:16] LABS: Albumin, Blood 2.2 g/dL (3.4-5.0); Anion Gap 3 mmol/L (6-16); Blood Urea Nitrogen 8 mg/dL (8-24); Bun/Creatinine Ratio 17.4 (12.0-20.0); CO2, Blood 29 mmol/L (21-32); Calcium, Blood 8.1 mg/dL (8.5-10.1); Chloride, Blood 112 mmol/L (98-108); Creatinine, Blood 0.46 mg/dL (0.40-1.00); Glomerular Filtration Rate >60 (60-); Glucose, Blood 71 mg/dL (70-99); Phosphorus, Blood 1.1 mg/dL (2.5-4.9); Potassium, Blood 2.9 mmol/L (3.5-5.5); Sodium, Blood 144 mmol/L (136-145)
--- NOTE | 2018-09-18 06:35 | NUR ---
VSS, AFEBRILE, A/O, PT SLEPT WELL OVERNOC, NO COMPLAINTS, PT GETS FREQUENT IV ABX AND THIS MIGHT BE DILUTING HER IRON LEVEL MAKING HER APPEAR TO BE ANEMIC. PT HAS BEEN NPO SINCE 99 OF THIS SHIFT PENDING A PROCEDURE TOMORROW TO R/O OSTEOMYLITIS IN HER FOOT. WILL REPORT TO ON-COMING SHIFT.
[2018-09-18 12:14] LABS: Percent Saturation 35.8 % (15.0-50.0)
--- NOTE | 2018-09-18 17:02 | NUR ---
PT AOX4 STARTED SHIFT FEELING VERY POORLY. PT HAD A CBG OF 63. SHE WAS GIVEN APPLE JUICE AND YOGURT. PT HAD BEEN NPO ALL NIGHT, BUT THIS ORDER WAS REMOVED. DR RIVERS NOTIFIED AND INTRUCTED OF LOW CBG AND ORDERED LANTUS TO STILL BE GIVEN. PT VERY TIRED AND LETHARGIC, UP TO BEDSIDE COMODE WITH STANDBY ASSISTANCE. PT STATED SHE FELT LIGHT HEADED AT THE TIME. THIS HAS RESOLVE THIS AFTERNOON AND PT OUT WITH DAUGHTERS IN WHEELCHAIR. WILL CONTINUE TO MONITOR.
--- NOTE | 2018-09-18 18:42 | NUR ---
PT HAD DRESSING CHANGE TO RIGHT FOOT PER EMAR. TOLERATED WELL FOOT LOOKS GOOD.
[2018-09-19 05:31] LABS: Albumin, Blood 2.3 g/dL (3.4-5.0); Anion Gap 5 mmol/L (6-16); Blood Urea Nitrogen 9 mg/dL (8-24); Bun/Creatinine Ratio 21.7 (12.0-20.0); CO2, Blood 30 mmol/L (21-32); Calcium, Blood 8.2 mg/dL (8.5-10.1); Chloride, Blood 103 mmol/L (98-108); Creatinine, Blood 0.42 mg/dL (0.40-1.00); Glomerular Filtration Rate >60 (60-); Glucose, Blood 272 mg/dL (70-99); Phosphorus, Blood 2.6 mg/dL (2.5-4.9); Potassium, Blood 3.5 mmol/L (3.5-5.5); Sodium, Blood 138 mmol/L (136-145)
--- NOTE | 2018-09-19 06:32 | NUR ---
VSS, AFEBRILE, A/O, INDEPENDENT, PT C/O PAIN EARLY IN SHIFT THEN HER FAMILY ARRIVED AND SHE DID NOT COMPLAIN ANYMORE. PT HAS GONE OUTSIDE TO SMOKE A FEW TIMES AND THIS HAS MADE THE ADMINISTRATION OF HER IV ABX SOMEWHAT MORE COMPLICATED. HOWEVER, PT REMAINS IN GOOD SPIRITS AND RETURNS TO HER ROOM, EVENTUALLY. PT HAS NOT SLEPT ALL NOC. WILL REPORT TO ON-COMING SHIFT.
[2018-09-19] MEDS ORDERED: [UNRECOGNIZED DRUG - OTHER] PO (11:47)
[2018-09-19] MEDS ORDERED: GI COCKTAIL PO (11:49)
[2018-09-19] MEDS ORDERED: PANT20 PO (11:50)
[2018-09-19] MEDS ORDERED: Bactrim Ds Tab1 EACH PO (11:50)
--- NOTE | 2018-09-19 13:11 | NUR ---
PATIENT DISCHARGE: PATIENT DISCHARGED TO HOME THIS SHIFT. MEDICATION RECONCILIATION COMPLETED; MED LIST FAXED TO [facility]. DISCHARGE EDUCATION COMP[LETED WITH PATIENT AND FAMILY; INSULIN PENS PROVIDED TO PATIENT. PATIENT TRANSPORTED TO EXIT BY [facility] STAFF WITH WHEELCHAIR AT 1250. PATIENT DEPARTED [facility] VIA PRIVATE AUTO.
== END 2018-09-19 13:00 | disposition home or self-care (01) | DRG 871 ==
LOC: ER 23:07 → ICUW 09-16 00:18 → MEDS 09-17 16:11 → ENPENDDIS 09-19 10:51 → MEDS 09-19 13:00
PROVIDERS: Emergency Medicine; Internal Medicine; ADMIT Internal Medicine
DX: A41.9 Sepsis, unspecified organism (principal); E10.10 Type 1 diabetes mellitus with ketoacidosis without coma; N17.9 Acute kidney failure, unspecified; E87.2 Acidosis; Z91.19 Patient's noncompliance with other medical treatment and regimen; E86.0 Dehydration; E11.621 Type 2 diabetes mellitus with foot ulcer; L97.519 Non-pressure chronic ulcer of other part of right foot with unspecified severity; Z79.4 Long term (current) use of insulin; K52.9 Noninfective gastroenteritis and colitis, unspecified; E87.6 Hypokalemia; E83.39 Other disorders of phosphorus metabolism; E83.51 Hypocalcemia; E11.40 Type 2 diabetes mellitus with diabetic neuropathy, unspecified; F32.9 Major depressive disorder, single episode, unspecified; F41.9 Anxiety disorder, unspecified; G47.00 Insomnia, unspecified; G40.909 Epilepsy, unspecified, not intractable, without status epilepticus; K21.9 Gastro-esophageal reflux disease without esophagitis; F15.10 Other stimulant abuse, uncomplicated; K29.70 Gastritis, unspecified, without bleeding; R13.10 Dysphagia, unspecified; F17.210 Nicotine dependence, cigarettes, uncomplicated
CPT/HCPCS: 20225; 36415; 51702; 71045; 73660; 74177; 80048; 80053; 80069; 80202; 81001; 82330; 82728; 82803; 82947; 83540; 83550; 83605; 83690; 83735; 85025; 85027; 85651; 87086; 93005; 93010; 96365-59; 96375-59; 99285-25; C9113; J0610; J1650; J1815; J2405; J2543; J3010; J3370; J3480; J7030; J7042; J7060; Q9967

== ENCOUNTER → 2018-10-21 | Outpatient (CLI) | payer OTHER ==
[~2018-10-21] MED LIST changes: +PANT20 PO; +[UNRECOGNIZED DRUG - OTHER] PO
== END ==
LOC: LAB 17:20 → LAB SHORT 17:20
DX: E13.621 Other specified diabetes mellitus with foot ulcer (principal); L97.509 Non-pressure chronic ulcer of other part of unspecified foot with unspecified severity
CPT/HCPCS: 87070; 87075; 87205

== ENCOUNTER 2018-10-23 01:10 | Inpatient (IN) | payer OTHER ==
[~2018-10-23] VITALS: Ht 172.7 cm; Wt 61.7 kg
[2018-10-23 04:05] LABS: BASOPHILS ABSOLUTE AUTO 0.05 K/mm3 (0.00-0.23); BASOPHILS PERCENT AUTO 1 % (0-2); EOSINOPHILS ABSOLUTE AUTO 0.03 K/mm3 (0.00-0.68); EOSINOPHILS PERCENT AUTO 0 % (0-6); Hematocrit 32.6 % (33.0-51.0); Hemoglobin 10.5 g/dL (11.5-16.0); IMMATURE GRAN ABSOLUTE AUTO 0.03 K/mm3 (0.00-0.10); IMMATURE GRAN PERCENT AUTO 0 % (0-1); LYMPHOCYTES ABSOLUTE AUTO 2.85 K/mm3 (0.84-5.20); LYMPHOCYTES PERCENT AUTO 36 % (21-46); MONOCYTES ABSOLUTE AUTO 0.68 K/mm3 (0.16-1.47); MONOCYTES PERCENT AUTO 9 % (4-13); Mean Corpuscular HGB 28.5 pg (26.0-34.0); Mean Corpuscular HGB Conc 32.2 g/dL (31.5-36.5); Mean Corpuscular Volume 89 fL (80-100); Mean Platelet Volume 9.6 fL (9.1-12.4); NEUTROPHILS ABSOLUTE AUTO 4.39 K/mm3 (1.96-9.15); NEUTROPHILS PERCENT AUTO 55 % (41-73); Platelet Count 552 K/mm3 (150-400); RDW Coefficient Variation 13.1 % (11.7-14.2); RDW Standard Deviation 42.6 fL (35.1-46.3); Red Blood Cell Count 3.68 M/mm3 (3.80-5.20); White Blood Cell Count 8.03 K/mm3 (4.00-11.30)
[2018-10-23 04:27] LABS: Alanine Aminotransfer (ALT/SGP 15 U/L (12-78); Albumin, Blood 3.1 g/dL (3.4-5.0); Albumin/Globulin Ratio 0.7 (0.8-1.8); Alk Phos 136 U/L (50-136); Anion Gap 10 mmol/L (6-16); Aspartate Aminotrans (AST/SGOT 6 U/L (12-37); Bilirubin, Total 0.3 mg/dL (0.1-1.0); Blood Urea Nitrogen 19 mg/dL (8-24); Bun/Creatinine Ratio 34.7 (12.0-20.0); CO2, Blood 26 mmol/L (21-32); Chloride, Blood 91 mmol/L (98-108); Creatinine, Blood 0.55 mg/dL (0.40-1.00); Globulin, Blood 4.7 g/dL (2.2-4.0); Glomerular Filtration Rate >60 (60-); Glucose, Blood 667 mg/dL (70-99); Potassium, Blood 4.5 mmol/L (3.5-5.5); Sodium, Blood 127 mmol/L (136-145); Total Protein, Blood 7.8 g/dL (6.4-8.2)
[2018-10-23 05:44] LABS: International Normalized Ratio 0.93; Prothrombin Time Results 9.3 Sec (9.7-11.5)
--- NOTE | 2018-10-23 09:56 | NUR ---
PATIENT ADMISSION THE PATIENT WAS ADMITTED FROM THE E/R TO THE MEDICAL FLOOR, ROOM #303. THE PATIENT ARRIVED VIA WHEELCHAIR AFTER REPORT WAS RECEIVED. THE PATIENT HAD A PODIATRY CONSULT ORDER, BUT NO SPRAY MACHINE LOADER [place] SUPERVISOR GRIPS. DR. CONTRERAS HAD THE ORER CHANGED TO ORTHRO, BUT AFTER THE ORDER WAS PUT AND THE SUPERVISOR GRIPS ORTHRO DOCTOR WAS CALLED, THE DOCTOR CALLED BACK AND REFUSED THE CONSULT, STATING THAT HE DOES NOT DO PODIATRY. DR. CONTRERAS WAS NOTIFIED. THE PATIENT'S ADMISSION WAS COMPLETED AT THAT TIME.
[2018-10-23 11:34] LABS: Source, Urine Clean Catch
[2018-10-23 11:40] LABS: Appearance, Urine Clear (Clear); Bilirubin, Urine Neg (Neg); Blood, Urine Neg (Neg); Color, Urine Yellow (P-Yellow); Glucose Qualitative, Urine 4+ (Neg); Ketones, Urine 3+ (Neg); Leukocyte Esterase, Urine Neg (Neg); Nitrite, Urine Neg (Neg); Protein, Urine Neg (Neg); Specific Gravity, Urine 1.015 (1.003-1.022); Urobilinogen, Urine NORM (Normal)
[2018-10-23 11:56] LABS: U Amphetamine Screen DETECTED; U Barbituate Screen Not Detected; U Benzodiazapine Screen Not Detected; U Buprenorphine Screen Not Detected; U Cannabinoids Screen DETECTED; U Cocaine Screen Not Detected; U Methadone Screen Not Detected; U Methamphetamine Screen DETECTED; U Opiates Screen Not Detected; U Oxycodone Screen Not Detected; U Phencyclidine Screen Not Detected; U Propoxyphene Screen Not Detected
--- NOTE | 2018-10-23 16:48 | NUR ---
SHIFT SUMMARY THE PATIENT WAS ADMITTED THIS MORNING WITH AN INFECTED FOOT AT HER 2ND TOE, FOR THE POSSIBILITY OF SURGERY. WITH NO PODITERY SURGEN THE PATIENT IS BEING SENT NORTH TO [facility] FOR CARE. THE PATIENT IS RESTING, VISITING WITH HER S/O, WILL CONTINUE TO MONITOR.
--- NOTE | 2018-10-23 22:49 | NUR ---
10/23/181904 Patient is on stretcher to be transported to [facility] via ambulance. Patient is tearful afraid to be away from her significant other. He has no way to get to [place]. Pt was discharged into [facility] teams care with all belongings. Left with paperwork, discovered on the way to [place] to be for anouther patient. Information faxed to [facility].
== END 2018-10-23 19:05 | disposition short-term general hospital (02) | DRG 638 ==
LOC: ER 01:10 → MEDS 06:24
PROVIDERS: Emergency Medicine; ADMIT Internal Medicine
DX: E10.621 Type 1 diabetes mellitus with foot ulcer (principal); M86.9 Osteomyelitis, unspecified; E10.52 Type 1 diabetes mellitus with diabetic peripheral angiopathy with gangrene; E87.1 Hypo-osmolality and hyponatremia; Z86.14 Personal history of Methicillin resistant Staphylococcus aureus infection; Z79.4 Long term (current) use of insulin; F17.210 Nicotine dependence, cigarettes, uncomplicated; F41.8 Other specified anxiety disorders; I10 Essential (primary) hypertension; G40.909 Epilepsy, unspecified, not intractable, without status epilepticus; J45.909 Unspecified asthma, uncomplicated; Z89.411 Acquired absence of right great toe; L97.514 Non-pressure chronic ulcer of other part of right foot with necrosis of bone; E10.65 Type 1 diabetes mellitus with hyperglycemia; F15.10 Other stimulant abuse, uncomplicated; F12.90 Cannabis use, unspecified, uncomplicated; M89.571 Osteolysis, right ankle and foot
CPT/HCPCS: 36415; 73630; 80053; 81003; 82947; 83605; 85025; 85610; 93005; 93010; J1650; J1815; J2543; J3010; J3370; J7030; J7050

== ENCOUNTER 2018-11-18 09:15 | Inpatient (IN) | payer OTHER ==
[~2018-11-18] VITALS: Ht 172.7 cm; Wt 59.0 kg
[~2018-11-18 09:15] MED LIST changes: -BASAGLAR K100 UNIT/1 SC; -Cymbalta20 MG PO; -PANT20 PO; -TRAZ50 PO
[2018-11-18 10:23] LABS: BASOPHILS ABSOLUTE AUTO 0.04 K/mm3 (0.00-0.23); BASOPHILS PERCENT AUTO 0 % (0-2); EOSINOPHILS PERCENT AUTO 0 % (0-6); Hematocrit 38.8 % (33.0-51.0); Hemoglobin 12.1 g/dL (11.5-16.0); IMMATURE GRAN ABSOLUTE AUTO 0.08 K/mm3 (0.00-0.10); IMMATURE GRAN PERCENT AUTO 1 % (0-1); LYMPHOCYTES ABSOLUTE AUTO 1.78 K/mm3 (0.84-5.20); LYMPHOCYTES PERCENT AUTO 13 % (21-46); MONOCYTES ABSOLUTE AUTO 1.28 K/mm3 (0.16-1.47); MONOCYTES PERCENT AUTO 9 % (4-13); Mean Corpuscular HGB Conc 31.2 g/dL (31.5-36.5); Mean Corpuscular Volume 93 fL (80-100); NEUTROPHILS ABSOLUTE AUTO 10.63 K/mm3 (1.96-9.15); NEUTROPHILS PERCENT AUTO 77 % (41-73); Platelet Count 247 K/mm3 (150-400); RDW Coefficient Variation 14.8 % (11.7-14.2); RDW Standard Deviation 50.9 fL (35.1-46.3); Red Blood Cell Count 4.17 M/mm3 (3.80-5.20); White Blood Cell Count 13.81 K/mm3 (4.00-11.30)
[2018-11-18 10:40] LABS: Alanine Aminotransfer (ALT/SGP 22 U/L (12-78); Albumin/Globulin Ratio 0.7 (0.8-1.8); Alk Phos 161 U/L (50-136); Anion Gap 9 mmol/L (6-16); Aspartate Aminotrans (AST/SGOT 11 U/L (12-37); Bilirubin, Total 0.4 mg/dL (0.1-1.0); Blood Urea Nitrogen 10 mg/dL (8-24); Bun/Creatinine Ratio 24.2 (12.0-20.0); CO2, Blood 25 mmol/L (21-32); Calcium, Blood 8.9 mg/dL (8.5-10.1); Chloride, Blood 99 mmol/L (98-108); Creatinine, Blood 0.41 mg/dL (0.40-1.00); Globulin, Blood 4.5 g/dL (2.2-4.0); Glomerular Filtration Rate >60 (60-); Glucose, Blood 336 mg/dL (70-99); Potassium, Blood 3.8 mmol/L (3.5-5.5); Sodium, Blood 133 mmol/L (136-145); Total Protein, Blood 7.5 g/dL (6.4-8.2)
[2018-11-18 10:50] LABS: Beta-hydroxybutyrate 11.3 mg/dL (0.2-2.8)
[2018-11-18 11:02] LABS: Source, Urine Clean Catch
[2018-11-18 11:16] LABS: Bilirubin, Urine Neg (Neg); Blood, Urine 5+ (Neg); Glucose Qualitative, Urine 4+ (Neg); Ketones, Urine 3+ (Neg); Leukocyte Esterase, Urine 3+ (Neg); Nitrite, Urine Neg (Neg); Protein, Urine 3+ (Neg); Specific Gravity, Urine 1.015 (1.003-1.022); Urobilinogen, Urine NORM (Normal)
[2018-11-18 11:17] LABS: Base Excess Venous 1.2 mmol/L; Bicarbonate Venous 24.9 mmol/L (24.0-30.0); PCO2 Venous 46.5 mmHg (38-42); PO2 Venous 51.2 mmHg (38-42); pH Blood Venous 7.37 (7.34-7.37)
[2018-11-18 11:18] LABS: Appearance, Urine Turbid (Clear); Color, Urine Amber (P-Yellow)
[2018-11-18 11:33] LABS: Bacteria Many /hpf; Squamous Epithelial Cells Mod /hpf (Few); White Blood Cells, Urine 25-50 /hpf (0-5)
[2018-11-18 11:34] LABS: Red Blood Cells, Urine TNTC /hpf (0-2)
[2018-11-18] MEDS ORDERED: ALBU90OI INH (12:51)
[2018-11-19 05:48] LABS: BASOPHILS ABSOLUTE AUTO 0.02 K/mm3 (0.00-0.23); BASOPHILS PERCENT AUTO 0 % (0-2); EOSINOPHILS ABSOLUTE AUTO 0.06 K/mm3 (0.00-0.68); EOSINOPHILS PERCENT AUTO 1 % (0-6); Hematocrit 31.9 % (33.0-51.0); Hemoglobin 10.2 g/dL (11.5-16.0); IMMATURE GRAN ABSOLUTE AUTO 0.02 K/mm3 (0.00-0.10); IMMATURE GRAN PERCENT AUTO 0 % (0-1); LYMPHOCYTES PERCENT AUTO 19 % (21-46); MONOCYTES ABSOLUTE AUTO 0.67 K/mm3 (0.16-1.47); MONOCYTES PERCENT AUTO 8 % (4-13); Mean Corpuscular Volume 91 fL (80-100); NEUTROPHILS ABSOLUTE AUTO 5.84 K/mm3 (1.96-9.15); NEUTROPHILS PERCENT AUTO 72 % (41-73); Platelet Count 236 K/mm3 (150-400); RDW Coefficient Variation 14.7 % (11.7-14.2); RDW Standard Deviation 49.2 fL (35.1-46.3); Red Blood Cell Count 3.52 M/mm3 (3.80-5.20); White Blood Cell Count 8.11 K/mm3 (4.00-11.30)
[2018-11-19 06:14] LABS: Alanine Aminotransfer (ALT/SGP 19 U/L (12-78); Albumin, Blood 2.7 g/dL (3.4-5.0); Albumin/Globulin Ratio 0.8 (0.8-1.8); Alk Phos 136 U/L (50-136); Anion Gap 6 mmol/L (6-16); Aspartate Aminotrans (AST/SGOT 15 U/L (12-37); Bilirubin, Total 0.3 mg/dL (0.1-1.0); Blood Urea Nitrogen 13 mg/dL (8-24); Bun/Creatinine Ratio 27.4 (12.0-20.0); CO2, Blood 27 mmol/L (21-32); Calcium, Blood 8.4 mg/dL (8.5-10.1); Chloride, Blood 108 mmol/L (98-108); Creatinine, Blood 0.48 mg/dL (0.40-1.00); Globulin, Blood 3.6 g/dL (2.2-4.0); Glomerular Filtration Rate >60 (60-); Glucose, Blood 179 mg/dL (70-99); Magnesium, Blood 1.9 mg/dL (1.6-2.4); Sodium, Blood 141 mmol/L (136-145); Total Protein, Blood 6.3 g/dL (6.4-8.2)
[2018-11-19 16:55] LABS: Vancomycin, Trough 9.9 ug/mL (5.0-10.0)
[2018-11-20 05:55] LABS: Hematocrit 29.6 % (33.0-51.0); Hemoglobin 9.2 g/dL (11.5-16.0); Mean Corpuscular HGB Conc 31.1 g/dL (31.5-36.5); Mean Corpuscular Volume 93 fL (80-100); Mean Platelet Volume 10.7 fL (9.1-12.4); Platelet Count 243 K/mm3 (150-400); RDW Standard Deviation 52.2 fL (35.1-46.3); Red Blood Cell Count 3.17 M/mm3 (3.80-5.20); White Blood Cell Count 8.25 K/mm3 (4.00-11.30)
[2018-11-20 06:22] LABS: Albumin, Blood 2.5 g/dL (3.4-5.0); Anion Gap 6 mmol/L (6-16); Blood Urea Nitrogen 11 mg/dL (8-24); Bun/Creatinine Ratio 20.6 (12.0-20.0); CO2, Blood 28 mmol/L (21-32); Calcium, Blood 8.2 mg/dL (8.5-10.1); Chloride, Blood 105 mmol/L (98-108); Creatinine, Blood 0.53 mg/dL (0.40-1.00); Glomerular Filtration Rate >60 (60-); Glucose, Blood 373 mg/dL (70-99); Phosphorus, Blood 3.9 mg/dL (2.5-4.9); Potassium, Blood 3.6 mmol/L (3.5-5.5); Sodium, Blood 139 mmol/L (136-145)
[2018-11-20] MEDS ORDERED: CIPR500 PO (15:39)
[2018-11-20] MEDS ORDERED: Bactrim Ds Tab1 EACH PO (15:39)
[2018-11-20] MEDS ORDERED: DOXY100 PO (15:40)
== END 2018-11-20 17:37 | disposition home or self-care (01) | DRG 690 ==
LOC: ER 09:15 → MEDS 12:49 → ENPENDDIS 11-20 15:08 → MEDS 11-20 17:37
PROVIDERS: Emergency Medicine; ADMIT Internal Medicine
DX: N10 Acute pyelonephritis (principal); E87.1 Hypo-osmolality and hyponatremia; L03.115 Cellulitis of right lower limb; A49.02 Methicillin resistant Staphylococcus aureus infection, unspecified site; F15.10 Other stimulant abuse, uncomplicated; F17.210 Nicotine dependence, cigarettes, uncomplicated; E87.6 Hypokalemia; F32.9 Major depressive disorder, single episode, unspecified; F41.9 Anxiety disorder, unspecified; K21.9 Gastro-esophageal reflux disease without esophagitis; E10.649 Type 1 diabetes mellitus with hypoglycemia without coma; G40.909 Epilepsy, unspecified, not intractable, without status epilepticus; D50.9 Iron deficiency anemia, unspecified; E86.0 Dehydration
CPT/HCPCS: 36415; 73620; 73630; 76770; 80053; 80069; 80202; 81001; 82010; 82803; 82947; 83605; 83735; 85025; 85027; 87070; 87077; 87081; 87086; 87186; 94640; 94760; 96361; 96365; 96375; 99285-25; C9113; J0696; J1650; J1815; J1885; J2405; J3010; J3370; J3480; J7030

== ENCOUNTER 2018-12-18 12:50 | Inpatient (IN) | payer OTHER ==
[~2018-12-18] VITALS: Ht 172.7 cm; Wt 54.7 kg
[~2018-12-18 12:50] MED LIST changes: +CIPR500 PO; +DOXY100 PO
[2018-12-18 13:43] LABS: BASOPHILS ABSOLUTE AUTO 0.09 K/mm3 (0.00-0.23); BASOPHILS PERCENT AUTO 1 % (0-2); EOSINOPHILS ABSOLUTE AUTO 0.02 K/mm3 (0.00-0.68); EOSINOPHILS PERCENT AUTO 0 % (0-6); Hematocrit 46.8 % (33.0-51.0); IMMATURE GRAN ABSOLUTE AUTO 0.09 K/mm3 (0.00-0.10); IMMATURE GRAN PERCENT AUTO 1 % (0-1); LYMPHOCYTES ABSOLUTE AUTO 2.32 K/mm3 (0.84-5.20); LYMPHOCYTES PERCENT AUTO 20 % (21-46); MONOCYTES ABSOLUTE AUTO 0.45 K/mm3 (0.16-1.47); MONOCYTES PERCENT AUTO 4 % (4-13); Mean Corpuscular HGB 28.3 pg (26.0-34.0); Mean Corpuscular HGB Conc 29.9 g/dL (31.5-36.5); Mean Corpuscular Volume 95 fL (80-100); NEUTROPHILS ABSOLUTE AUTO 8.78 K/mm3 (1.96-9.15); NEUTROPHILS PERCENT AUTO 75 % (41-73); Platelet Count 303 K/mm3 (150-400); RDW Coefficient Variation 14.4 % (11.7-14.2); RDW Standard Deviation 50.4 fL (35.1-46.3); Red Blood Cell Count 4.94 M/mm3 (3.80-5.20); White Blood Cell Count 11.75 K/mm3 (4.00-11.30)
[2018-12-18 14:26] LABS: Alanine Aminotransfer (ALT/SGP 30 U/L (12-78); Albumin, Blood 3.7 g/dL (3.4-5.0); Albumin/Globulin Ratio 0.8 (0.8-1.8); Alk Phos 121 U/L (50-136); Anion Gap 24 mmol/L (6-16); Aspartate Aminotrans (AST/SGOT 18 U/L (12-37); Bilirubin, Total 0.4 mg/dL (0.1-1.0); Blood Urea Nitrogen 16 mg/dL (8-24); Bun/Creatinine Ratio 26.3 (12.0-20.0); Calcium, Blood 8.4 mg/dL (8.5-10.1); Chloride, Blood 97 mmol/L (98-108); Creatinine, Blood 0.61 mg/dL (0.40-1.00); Globulin, Blood 4.4 g/dL (2.2-4.0); Glomerular Filtration Rate >60 (60-); Glucose, Blood 572 mg/dL (70-99); Potassium, Blood 4.7 mmol/L (3.5-5.5); Sodium, Blood 126 mmol/L (136-145); Total Protein, Blood 8.1 g/dL (6.4-8.2)
[2018-12-18 14:46] LABS: Beta-hydroxybutyrate 103.8 mg/dL (0.2-2.8)
[2018-12-18 14:47] LABS: CO2, Blood 5 mmol/L (21-32)
[2018-12-18 15:08] LABS: Beta HCG, Quantitative, Serum <1 mIU/mL (0-3)
[2018-12-18 17:27] LABS: Source, Urine Clean Catch
[2018-12-18 17:34] LABS: Anion Gap 22 mmol/L (6-16); Blood Urea Nitrogen 18 mg/dL (8-24); Bun/Creatinine Ratio 34.5 (12.0-20.0); CO2, Blood 6 mmol/L (21-32); Calcium, Blood 8.4 mg/dL (8.5-10.1); Chloride, Blood 99 mmol/L (98-108); Creatinine, Blood 0.52 mg/dL (0.40-1.00); Glomerular Filtration Rate >60 (60-); Glucose, Blood 512 mg/dL (70-99); Potassium, Blood 4.6 mmol/L (3.5-5.5); Sodium, Blood 127 mmol/L (136-145)
[2018-12-18 17:37] LABS: Bilirubin, Urine Neg (Neg); Blood, Urine 2+ (Neg); Glucose Qualitative, Urine 4+ (Neg); Ketones, Urine 4+ (Neg); Leukocyte Esterase, Urine Neg (Neg); Nitrite, Urine Neg (Neg); Protein, Urine 2+ (Neg); Urobilinogen, Urine NORM (Normal)
[2018-12-18 17:55] LABS: Appearance, Urine Hazy (Clear); Color, Urine Pale Yellow (P-Yellow)
[2018-12-18 17:56] LABS: Red Blood Cells, Urine 0-2 /hpf (0-2); Squamous Epithelial Cells Many /hpf (Few); White Blood Cells, Urine 0-2 /hpf (0-5)
[2018-12-18 17:57] LABS: Bacteria Few /hpf
[2018-12-18 17:58] LABS: Trichomonas Many /hpf
--- NOTE | 2018-12-18 18:05 | NUR ---
PT ADMITTED TO ICU 2 AT 1640. PT AWAKE, ORIENTED, COMPLAINING OF NAUSEA. ZOFRAN GIVEN BUT PT CONTINUED TO DRY HEAVE AND THROW UP SO PHENERGAN GIVEN WELL. PT IS VERY ABRUPT IN HER MOVEMENTS. SHE COMPLAINS ABOUT BEING FREEZING COLD, DEMANDING BLANKETS AND GETTING MAD IF SHE HAS TO BE UNCOVERED A LITTLE BIT, TO COMPLAINING ABOUT BEING HOT AND THROWING OFF HER BLANKETS. SHE IS AFEBRILE. INSULIN GTT INFUSING AT 3 UN/HR. IV FLUIDS AND POTASSIUM STARTED. ONE OF PT'S IVS CLOTTED OFF AND LAB HAS HAD DIFFICULT TIME GETTING BLOOD SO JUAN, RN ATTEMPTING TO PLACE POWERGLIDE CURRENTLY.
[2018-12-18 18:31] LABS: Anion Gap 22 mmol/L (6-16); Blood Urea Nitrogen 19 mg/dL (8-24); Bun/Creatinine Ratio 35.4 (12.0-20.0); CO2, Blood 7 mmol/L (21-32); Calcium, Blood 8.9 mg/dL (8.5-10.1); Chloride, Blood 99 mmol/L (98-108); Creatinine, Blood 0.54 mg/dL (0.40-1.00); Glomerular Filtration Rate >60 (60-); Glucose, Blood 499 mg/dL (70-99); Potassium, Blood 4.4 mmol/L (3.5-5.5); Sodium, Blood 128 mmol/L (136-145)
--- NOTE | 2018-12-18 19:00 | NUR ---
ASSUME CARE: REPORT RECIEVED FROM LELA OFF GOING RN. MONITOR INTACT SHOWING SINUS TACH. HEART RATE 100'S-110'S . LUNG SOUNDS CLEAR RESPIRATIONS REGULAR AND EASY AT REST ON ROOM AIR. SPO2 96-100%. ABDOMEN SOFT WITH BOWEL SOUNDS FOUR QUADS. DRESSING TO R FOOT INTACT. SMALL AMOUNT OF BROWN EMESIS NOTED. REQUEST WARM BLANKET. OBTAINED CONTINUE TO MONITOR AND REPORT CHANGE IN PATIENT CONDITION.
[2018-12-18 20:48] LABS: Anion Gap 19 mmol/L (6-16); Blood Urea Nitrogen 20 mg/dL (8-24); Bun/Creatinine Ratio 36.6 (12.0-20.0); CO2, Blood 8 mmol/L (21-32); Calcium, Blood 8.2 mg/dL (8.5-10.1); Chloride, Blood 107 mmol/L (98-108); Creatinine, Blood 0.55 mg/dL (0.40-1.00); Glomerular Filtration Rate >60 (60-); Glucose, Blood 321 mg/dL (70-99); Potassium, Blood 4.2 mmol/L (3.5-5.5); Sodium, Blood 134 mmol/L (136-145)
--- NOTE | 2018-12-18 21:00 | NUR ---
MEDS PATIENT REFUSES HS MEDS. CONTINUES TO HAVE NAUSEA.
[2018-12-18 22:31] LABS: Anion Gap 16 mmol/L (6-16); Blood Urea Nitrogen 19 mg/dL (8-24); Bun/Creatinine Ratio 33.9 (12.0-20.0); CO2, Blood 11 mmol/L (21-32); Calcium, Blood 8.3 mg/dL (8.5-10.1); Chloride, Blood 110 mmol/L (98-108); Creatinine, Blood 0.56 mg/dL (0.40-1.00); Glomerular Filtration Rate >60 (60-); Glucose, Blood 248 mg/dL (70-99); Potassium, Blood 4.3 mmol/L (3.5-5.5); Sodium, Blood 137 mmol/L (136-145)
--- NOTE | 2018-12-18 22:33 | NUR ---
50L BROWN EMESIS. REQUESTS GLASS OF WATER. EXPLAINED THAT NEEDED TO BE NPO UNTIL EMESIS ABATES. CONTINUE TO MONITOR AND REPORT CHANGE IN PATIENT CONDITION
[2018-12-19 01:20] LABS: Anion Gap 13 mmol/L (6-16); Blood Urea Nitrogen 19 mg/dL (8-24); Bun/Creatinine Ratio 33.5 (12.0-20.0); CO2, Blood 14 mmol/L (21-32); Calcium, Blood 8.1 mg/dL (8.5-10.1); Chloride, Blood 112 mmol/L (98-108); Creatinine, Blood 0.57 mg/dL (0.40-1.00); Glomerular Filtration Rate >60 (60-); Glucose, Blood 252 mg/dL (70-99); Potassium, Blood 4.1 mmol/L (3.5-5.5); Sodium, Blood 139 mmol/L (136-145)
--- NOTE | 2018-12-19 05:39 | NUR ---
SHIFT SUMMARY ;RESTS QUIETLY WHEN UNDISTURBED. MONITOR INTACT SHOWING SINUS TACH HEART RATE 100'S-110'S. LUNG SOUNDS CLEAR THROUGHOUT RESPIRATIONS REGULAR AND EASY ON ROOM AIR. SPO2 96-100% ABDOMEN SOFT WITH BOWEL SOUNDS FOUR QUADS. VOIDS LOUISE URINE PER BEDPAN REPOSITIONS SELF IN BED. WHEN AWAKENED RETCHES TILL ENESIS SMALL AMOUNTS BROWN EMESIS DRESSING INTACT TO R FOOT . CONTINUE TO MONITOR AND REPORT CHANGE IN PATIENT CONDITION . ANXIOUS AT TIMES.
[2018-12-19 06:54] LABS: Hematocrit 40.7 % (33.0-51.0); Hemoglobin 13.4 g/dL (11.5-16.0); Mean Corpuscular HGB 28.2 pg (26.0-34.0); Mean Corpuscular HGB Conc 32.9 g/dL (31.5-36.5); Mean Platelet Volume 10.2 fL (9.1-12.4); Platelet Count 263 K/mm3 (150-400); RDW Coefficient Variation 13.9 % (11.7-14.2); Red Blood Cell Count 4.75 M/mm3 (3.80-5.20); White Blood Cell Count 20.11 K/mm3 (4.00-11.30)
[2018-12-19 06:57] LABS: Mean Corpuscular Volume 86 fL (80-100)
[2018-12-19 07:22] LABS: Anion Gap 7 mmol/L (6-16); Blood Urea Nitrogen 16 mg/dL (8-24); CO2, Blood 19 mmol/L (21-32); Calcium, Blood 8.4 mg/dL (8.5-10.1); Chloride, Blood 111 mmol/L (98-108); Creatinine, Blood 0.53 mg/dL (0.40-1.00); Glomerular Filtration Rate >60 (60-); Glucose, Blood 201 mg/dL (70-99); Potassium, Blood 3.6 mmol/L (3.5-5.5); Sodium, Blood 137 mmol/L (136-145)
--- NOTE | 2018-12-19 07:30 | NUR ---
ASSUMED CARE OF PATIENT; SEE ASSESSMENT CHARTING FOR DETAILS. PATIENT SLEEPY BUT ROUSES EASILY; NO ACUTE NAUSEA AT THIS TIME. IVF INFUSING WITH D51/2NS AT 125ML/HR AND INSULIN DRIP INFUSING AT 4U/HR. CBG 209 THIS AM. MONITOR REMAINS NSR TO ST RATE 90'S TO LOW 100'S; AFEBRILE. LUNGS CLEAR; BIOX. MID TO HIGH 90'S ON RA. C/O SORENESS TO UPPER ABD./ESOPHAGEAL AREA. DR. WELCH IN AND ORDERED 1 DOSE OF IV PROTONIX; SEE FURTHER ORDERS.
--- NOTE | 2018-12-19 07:45 | NUR ---
INSULIN DRIP REDUCED TO 2U/HR.
--- NOTE | 2018-12-19 08:30 | NUR ---
PATIENT HAD SOME CLEAR LIQUIDS AND MEGAN. WELL; INSULIN DRIP DOWN TO 1U/HR.
--- NOTE | 2018-12-19 12:10 | NUR ---
UP FOR BRP WITH 1 PERSON STANDBY ASSIST; WEAK BUT BALANCE GOOD.
--- NOTE | 2018-12-19 12:15 | NUR ---
DR. WELCH HERE; D/C INSTRUCTIONS ORDERED. RN TO EVAL PATIENT THIS AFTERNOON AND THEN CALL A CAB TO TAKE PATIENT HOME ([place]).
--- NOTE | 2018-12-19 14:15 | NUR ---
IV'S DC'D AND DISCHARGE INSTRUCTIONS GIVEN TO PATIENT.
--- NOTE | 2018-12-19 14:55 | NUR ---
DISCHARGED TO HOME; TO [facility] VIA W/C. BELONGINGS AND INSTRUCTIONS WITH PATIENT.
== END 2018-12-19 14:58 | disposition home or self-care (01) | DRG 638 ==
LOC: ER 12:50 → ICUW 15:49 → ICUE 16:19
PROVIDERS: Emergency Medicine; ADMIT Hospitalist
DX: E10.10 Type 1 diabetes mellitus with ketoacidosis without coma (principal); E87.1 Hypo-osmolality and hyponatremia; E11.40 Type 2 diabetes mellitus with diabetic neuropathy, unspecified; F32.9 Major depressive disorder, single episode, unspecified; F41.9 Anxiety disorder, unspecified; K21.9 Gastro-esophageal reflux disease without esophagitis; J45.909 Unspecified asthma, uncomplicated; I10 Essential (primary) hypertension; G40.909 Epilepsy, unspecified, not intractable, without status epilepticus; F15.10 Other stimulant abuse, uncomplicated; F17.210 Nicotine dependence, cigarettes, uncomplicated; Z91.14 Patient's other noncompliance with medication regimen
CPT/HCPCS: 36415; 71045; 80048; 80053; 81001; 82010; 82947; 83690; 84702; 85025; 85027; 87040; 94640; 94760; 96365; 96366; 96375; 99285-25; C1751; C9113; J0696; J1200; J1650; J1815; J2405; J2550; J2765; J3480; J7030; J7042

== ENCOUNTER 2018-12-24 08:46 | Inpatient (IN) | payer OTHER ==
[~2018-12-24] VITALS: Ht 167.6 cm; Wt 54.8 kg
[2018-12-24 09:02] LABS: BASOPHILS ABSOLUTE AUTO 0.08 K/mm3 (0.00-0.23); BASOPHILS PERCENT AUTO 0 % (0-2); EOSINOPHILS ABSOLUTE AUTO 0.01 K/mm3 (0.00-0.68); EOSINOPHILS PERCENT AUTO 0 % (0-6); Hematocrit 39.7 % (33.0-51.0); Hemoglobin 12.2 g/dL (11.5-16.0); IMMATURE GRAN ABSOLUTE AUTO 0.14 K/mm3 (0.00-0.10); IMMATURE GRAN PERCENT AUTO 1 % (0-1); LYMPHOCYTES PERCENT AUTO 15 % (21-46); MONOCYTES ABSOLUTE AUTO 0.94 K/mm3 (0.16-1.47); MONOCYTES PERCENT AUTO 5 % (4-13); Mean Corpuscular HGB 28.7 pg (26.0-34.0); Mean Corpuscular HGB Conc 30.7 g/dL (31.5-36.5); Mean Platelet Volume 10.5 fL (9.1-12.4); NEUTROPHILS ABSOLUTE AUTO 14.78 K/mm3 (1.96-9.15); NEUTROPHILS PERCENT AUTO 79 % (41-73); Platelet Count 300 K/mm3 (150-400); RDW Standard Deviation 51.5 fL (35.1-46.3); Red Blood Cell Count 4.25 M/mm3 (3.80-5.20); White Blood Cell Count 18.65 K/mm3 (4.00-11.30)
[2018-12-24 09:03] LABS: Mean Corpuscular Volume 93 fL (80-100)
[2018-12-24 09:07] LABS: Source, Urine Clean Catch
[2018-12-24 09:10] LABS: Bilirubin, Urine Neg (Neg); Blood, Urine 5+ (Neg); Glucose Qualitative, Urine 4+ (Neg); Ketones, Urine 4+ (Neg); Leukocyte Esterase, Urine 3+ (Neg); Nitrite, Urine Neg (Neg); Protein, Urine 2+ (Neg); Urobilinogen, Urine NORM (Normal)
[2018-12-24 09:15] LABS: Appearance, Urine Hazy (Clear); Color, Urine Pale Yellow (P-Yellow)
[2018-12-24 09:16] LABS: Red Blood Cells, Urine TNTC /hpf (0-2); Squamous Epithelial Cells Few /hpf (Few); White Blood Cells, Urine TNTC /hpf (0-5)
[2018-12-24 09:17] LABS: Bacteria Few /hpf; Trichomonas Mod /hpf
[2018-12-24 09:41] LABS: Alanine Aminotransfer (ALT/SGP 25 U/L (12-78); Albumin, Blood 2.9 g/dL (3.4-5.0); Albumin/Globulin Ratio 0.7 (0.8-1.8); Alk Phos 113 U/L (50-136); Anion Gap 22 mmol/L (6-16); Aspartate Aminotrans (AST/SGOT 16 U/L (12-37); Beta-hydroxybutyrate 90.4 mg/dL (0.2-2.8); Bilirubin, Total 0.3 mg/dL (0.1-1.0); Blood Urea Nitrogen 14 mg/dL (8-24); Bun/Creatinine Ratio 31.2 (12.0-20.0); CO2, Blood 7 mmol/L (21-32); Calcium, Blood 8.1 mg/dL (8.5-10.1); Chloride, Blood 98 mmol/L (98-108); Creatinine, Blood 0.45 mg/dL (0.40-1.00); Glomerular Filtration Rate >60 (60-); Glucose, Blood 482 mg/dL (70-99); Potassium, Blood 4.8 mmol/L (3.5-5.5); Sodium, Blood 127 mmol/L (136-145); Total Protein, Blood 6.9 g/dL (6.4-8.2)
[2018-12-24 11:22] LABS: Anion Gap 23 mmol/L (6-16); Blood Urea Nitrogen 18 mg/dL (8-24); CO2, Blood 5 mmol/L (21-32); Calcium, Blood 8.8 mg/dL (8.5-10.1); Chloride, Blood 99 mmol/L (98-108); Creatinine, Blood 0.55 mg/dL (0.40-1.00); Glomerular Filtration Rate >60 (60-); Glucose, Blood 607 mg/dL (70-99); Potassium, Blood 4.8 mmol/L (3.5-5.5); Sodium, Blood 127 mmol/L (136-145)
--- NOTE | 2018-12-24 12:45 | NUR ---
ASSUMED CARE OF PT FROM ER PT. RESPONDS ONE OR TWO WORDS TO VERBAL STIMULI. PT TRANSFERRED TO ICU BED AND PLACED ON TUBE COATER. BG CHECKED UPON ARRVIAL 457. PT. SIT, HR 115. RR 20S, KUSSMAUL BREATHING NOTED. PT. HAS INSULIN GTT INFUSING AT 6.4U/HR UPON ARRIVAL. 3RD LITER BOLUS INFUSING AT THIS TIME. PT ARRIVED WITH D5 40MEQ INFUSION RUNNING THIS STOPPED UPON ARRIVAL AND CALL TO DR. CORONA FOR ORDER CLARIFICATION ON FLUIDS. PT. VSS UPON ARRIVAL. ATTENDS IN PLACE, CDI. PT. DENIES PAIN AT THIS TIME. CALL LIGHT IN REACH, BED IN LOW POSITION.
--- NOTE | 2018-12-24 12:46 | NUR ---
CALL TO DR. CORONA FOR ORDER CLARIFICATION ON FLUIDS, CHANGE IN FLUIDS TO BE MADE.
[2018-12-24 13:59] LABS: U Amphetamine Screen Not Detected; U Barbituate Screen Not Detected; U Benzodiazapine Screen Not Detected; U Buprenorphine Screen Not Detected; U Cannabinoids Screen Not Detected; U Cocaine Screen Not Detected; U Methadone Screen Not Detected; U Methamphetamine Screen Not Detected; U Opiates Screen Not Detected; U Oxycodone Screen Not Detected; U Phencyclidine Screen Not Detected; U Propoxyphene Screen Not Detected
[2018-12-24 16:14] LABS: Anion Gap 14 mmol/L (6-16); Blood Urea Nitrogen 16 mg/dL (8-24); Bun/Creatinine Ratio 32.3 (12.0-20.0); CO2, Blood 9 mmol/L (21-32); Calcium, Blood 7.9 mg/dL (8.5-10.1); Chloride, Blood 117 mmol/L (98-108); Glomerular Filtration Rate >60 (60-); Glucose, Blood 239 mg/dL (70-99); Potassium, Blood 4.1 mmol/L (3.5-5.5); Sodium, Blood 140 mmol/L (136-145)
--- NOTE | 2018-12-24 18:00 | NUR ---
SHIFT SUMMARY PT. REMAINS VERY DROWSY. CURRENTLY ON INSULIN GTT AT 4U/HR ALONG WITH D5 1/2NS. PT. VSS T/O SHIFT. HR DECREASED TO 90S. PT. INCONT. OF URINE, ATTENDS IN PLACE. CDI. PT MED ONCE FOR N/V WITH ZOFRAN. NADN. CALL LIGHT IN REACH. REPORT TO ONCOMING RN.
[2018-12-24 19:29] LABS: Anion Gap 11 mmol/L (6-16); Blood Urea Nitrogen 13 mg/dL (8-24); Bun/Creatinine Ratio 25.8 (12.0-20.0); CO2, Blood 16 mmol/L (21-32); Calcium, Blood 8.5 mg/dL (8.5-10.1); Chloride, Blood 110 mmol/L (98-108); Glomerular Filtration Rate >60 (60-); Glucose, Blood 215 mg/dL (70-99); Potassium, Blood 3.8 mmol/L (3.5-5.5); Sodium, Blood 137 mmol/L (136-145)
--- NOTE | 2018-12-24 22:01 | NUR ---
START OF SHIFT: REPORT FROM MAYRA KINGSLEY. PT DROWSY BUT AWAKENS TO RN'S AT BEDSIDE. VSS. PT ORIENTED TO PERSON, PLACE, AND MONTH BUT DIDN'T KNOW DAY OR DAY OF WEEK. INSULIN gtt AT 5u/hr; 5% DEXTROSE 0.45% NS AT 200/HR. INSULIN TITRATED TO 7u/hr FOR BLOOD SUGARS >250. PT UP TO BSC X1 THUS FAR WITH MODERATE ASSIST WITH LINES AND IV TUBING. PT REMAINS DROWSY WITH BOUTS OF HICKUPS WHEN AWAKENED. PT CONTINUES TO AWAKEN EASILY TO RN AT BEDSIDE BUT FALLS BACK TO SLEEP IMMEDIATELY. CONTINUING 1' BG POC CHECKS AND INSULING gtt.
--- NOTE | 2018-12-24 22:36 | NUR ---
PT WITH BOYFRIEND AT BEDSIDE. PT ASSISTED TO BSC WITH MINIMAL ASSIST.
[2018-12-25 00:26] LABS: Anion Gap 9 mmol/L (6-16); Blood Urea Nitrogen 10 mg/dL (8-24); Bun/Creatinine Ratio 22.6 (12.0-20.0); CO2, Blood 17 mmol/L (21-32); Calcium, Blood 7.8 mg/dL (8.5-10.1); Chloride, Blood 114 mmol/L (98-108); Creatinine, Blood 0.44 mg/dL (0.40-1.00); Glomerular Filtration Rate >60 (60-); Glucose, Blood 241 mg/dL (70-99); Potassium, Blood 3.3 mmol/L (3.5-5.5); Sodium, Blood 140 mmol/L (136-145)
[2018-12-25 04:31] LABS: BASOPHILS ABSOLUTE AUTO 0.03 K/mm3 (0.00-0.23); BASOPHILS PERCENT AUTO 0 % (0-2); EOSINOPHILS ABSOLUTE AUTO 0.02 K/mm3 (0.00-0.68); EOSINOPHILS PERCENT AUTO 0 % (0-6); Hematocrit 31.4 % (33.0-51.0); Hemoglobin 10.2 g/dL (11.5-16.0); IMMATURE GRAN ABSOLUTE AUTO 0.05 K/mm3 (0.00-0.10); IMMATURE GRAN PERCENT AUTO 0 % (0-1); LYMPHOCYTES ABSOLUTE AUTO 2.43 K/mm3 (0.84-5.20); LYMPHOCYTES PERCENT AUTO 20 % (21-46); MONOCYTES ABSOLUTE AUTO 1.35 K/mm3 (0.16-1.47); MONOCYTES PERCENT AUTO 11 % (4-13); Mean Corpuscular HGB Conc 32.5 g/dL (31.5-36.5); Mean Platelet Volume 9.5 fL (9.1-12.4); NEUTROPHILS ABSOLUTE AUTO 8.61 K/mm3 (1.96-9.15); NEUTROPHILS PERCENT AUTO 69 % (41-73); Platelet Count 277 K/mm3 (150-400); RDW Coefficient Variation 14.6 % (11.7-14.2); RDW Standard Deviation 45.7 fL (35.1-46.3); Red Blood Cell Count 3.64 M/mm3 (3.80-5.20); White Blood Cell Count 12.49 K/mm3 (4.00-11.30)
[2018-12-25 04:33] LABS: Mean Corpuscular Volume 86 fL (80-100)
[2018-12-25 04:48] LABS: Anion Gap 5 mmol/L (6-16); Blood Urea Nitrogen 8 mg/dL (8-24); Bun/Creatinine Ratio 16.7 (12.0-20.0); CO2, Blood 20 mmol/L (21-32); Calcium, Blood 7.8 mg/dL (8.5-10.1); Chloride, Blood 115 mmol/L (98-108); Creatinine, Blood 0.48 mg/dL (0.40-1.00); Glomerular Filtration Rate >60 (60-); Glucose, Blood 119 mg/dL (70-99); Potassium, Blood 2.7 mmol/L (3.5-5.5); Sodium, Blood 140 mmol/L (136-145)
[2018-12-25 08:18] LABS: Anion Gap 7 mmol/L (6-16); Blood Urea Nitrogen 7 mg/dL (8-24); Bun/Creatinine Ratio 15.4 (12.0-20.0); CO2, Blood 19 mmol/L (21-32); Chloride, Blood 114 mmol/L (98-108); Creatinine, Blood 0.46 mg/dL (0.40-1.00); Glomerular Filtration Rate >60 (60-); Glucose, Blood 91 mg/dL (70-99); Potassium, Blood 3.3 mmol/L (3.5-5.5); Sodium, Blood 140 mmol/L (136-145)
--- NOTE | 2018-12-25 08:30 | NUR ---
DR. CORONA IN TO SEE PATIENT, NO NEW ORDERS RECEIVED AT THIS TIME.
--- NOTE | 2018-12-25 08:49 | NUR ---
START OF SHIFT NOTE: RECEIVED REPORT FROMOtoniel LASSITER RN, ASSUMED CARE, PATIENT IS AWAKE, ALERT AND ORIENTED, ABLE TO FOLLOW COMMANDS AND ANSWER ALL QUESTIONS, LUNG SOUNDS CLEAR, SR/ST, WITH HR IN UPPER 90'S, INSULIN DRIP HAS BEEN STOPPED, PATIENT NOW ON AC/HS CHEMSTICKS, WITH HUMALOG AND LANTUS COVERAGE, PATIENT HAS SIGNIFICANT OTHER SLEEPING IN ROOM, RIGHT FOOT HAS HALLUX AND TOE NEXT TO IT MISSING, PATIENT REPORTS THAT BOTH TOES WERE AMPUTATED AFTER AN INFECTION, PODIATRY CONSULTED, CALL LIGHT IN REACH, WILL CONTINUE TO MONITOR.
--- NOTE | 2018-12-25 09:27 | NUR ---
ATTEMPTED TO CALL DR. GOODWIN FOR PODIATRY CONSULT IN ROOM 14, NO ANSWER, LEFT VOICE MAIL, AWAITING CALL BACK.
--- NOTE | 2018-12-25 10:15 | NUR ---
ATTEMPTED SECOND CALL TO DR. GOODWIN AND FINALLY WAS ABLE TO REACH ANSWERING SERVICE, CALLED CONSULT AND SPOKE WITH MALOU, AWAITING DR. GOODWIN'S CALL BACK.
--- NOTE | 2018-12-25 10:35 | NUR ---
DR. GOODWIN HAS NOT RETURNED CALL/PAGE, ATTEMPTED TO CONTACT ANSWERING SERVICE, BUT NO ANSWER AT SERVICE.
--- NOTE | 2018-12-25 10:59 | NUR ---
CALLED PODIATRY ASNWERING SERVICE AGAIN, DR. GOODWIN HAS NOT CALLED OR SEEN PATIENT, ANSWERING SERVICE PAGED HIM AND HE SHOULD CALL BACK.
--- NOTE | 2018-12-25 11:52 | NUR ---
ANSWERING SERVICE FOR DR. GOODWIN CALLED AGAIN, SPOKE WITH PEPE, SHE STATED "I HAVE BEEN CALLING HIM EVERY 15 MINUTES, BUT NO ANSWER", WILL CONTINUE TO GET IN TOUCH WITH DR. GOODWIN.
--- NOTE | 2018-12-25 15:30 | NUR ---
DR. GOODWIN CALLED AND STATED THAT HE WAS NOT WATER JET LOOM FIXER, AND NO-ONE ELSE WAS WATER JET LOOM FIXER, BUT HE WILL SEE THE PATIENT TOMORROW, Thursday12-26-18.
--- NOTE | 2018-12-25 15:42 | NUR ---
DR. CORONA ORDERED MRI FOR PATIENT, MRI CHECKLIST WAS FILLED OUT AND FAXED BACK TO MRI, AWAITING TIME FOR MRI.
--- NOTE | 2018-12-25 16:56 | NUR ---
BLOOD GLUCOSE CHECK RESULTED IN 446, PATIENT WAS COVERED WITH ORDERED SS LOW DOSE WITH 10 UNITS, DR. CORONA WAS NOTIFIED OF ELEVATED BLOOD SUGARS, WILL ORDER HIGH DOSE SS, ALSO NOTIFIED THAT DR. GOODWIN WILL SEE PATIENT TOMORROW.
--- NOTE | 2018-12-25 17:01 | NUR ---
SEBASTIÁN, MRI, CALLED AND NOTIFIED THIS RN THAT SHE WILL TRY TO GET PATIENT IN TODAY FOR MRI OF RIGHT FOOT.
--- NOTE | 2018-12-25 17:25 | NUR ---
PATIENT TO MRI VIA WHEELCHAIR.
--- NOTE | 2018-12-25 17:48 | NUR ---
SHIFT SUMMARY NOTE: NO ACUTE EVENTS DURING DAY SHIFT, PATIENT IS OFF INSULIN DRIP, ON LONGACTING LANTUS AND HUMALOG LOW DOSE SS, PATIENT DENIES PAIN, REPORTS NO CHEST PAIN/PRESSURE, NO SOB PRESENT, NO NAUSEA/VOMITING, PATIENT ATE BREAKFAST/LUNCH/DINNER WITH GOOD APPETITE, AC/HS BLOOD SUGAR CHECKS, AT DINNER TIME BG WAS 446, PATIENT WAS COVERED AND DR. CORONA NOTIFIED, ORDERED HIGH DOSE SS AND MONITOR PATIENT, ALSO DR. GOODWIN, PODIATRY CONSULTED TO ASSESS WOUND ON PATIENTS RIGHT PLANTAR SURFACE, BELOW AMPUTATED LARGE TOE AND NEXT ONE TO IT, PATIENT HAS SOME SEROSANGUINOUS DRAINAGE FROM WOUND, COVERED WITH MEPILEX, PATIENT WAS TAKEN TO MRI FOR RIGHT FOOT VIA WHEELCHAIR, VSS, AFEBRILE, CALL LIGHT IN REACH, WILL CONTINUE TO MONITOR AND GIVE REPORT TO ONCOMING TOWEL WEAVER.
--- NOTE | 2018-12-25 18:20 | NUR ---
PATIENT RETURNED FROM MRI, PLACED BACK ON ROOM MONITOR, VISITORS AT BEDSIDE, CALL LIGHT IN REACH, WILL CONTINUE TO MONITOR.
--- NOTE | 2018-12-25 19:44 | NUR ---
PT AGITATION: PT AWAKENED SHORTLY AFTER CHANGE OF SHIFT. REPORT FROM SELVIN KINGSLEY. PT AND SIG OTHER ASLEEP TOGETHER IN PT BED. PT AWAKENED APPRX 193 USING CALL LIGHT REQUESTING CHEESE AND CRACKERS. IN REPORT PT APPARENTLY REQUESTED CHEESE AND CRACKERS AND YOGURT T/O THE DAY IN ADDITION TO MEALS. PT'S BOYFRIEND APPARENTLY STAYED WITH PT ALL DAY AND MAY HAVE BEEN EATING SOME OF PT'S FOOD. PT AND BOYFRIEND CURRENTLY BOTH SEEM AGITATED. PT TEACHING RE: LAST 24 HOURS ON INSULIN gtt FOR DKA AND TODAY BLOOD SUGARS CLIMBING WITH CHANGE OF HUMALOG COVERAGE TO HSS. PT'S BOYFRIEND ASSISTED PT TO BSC BEFORE CALLING RN TO ASSIST, PT NOW C/O LOW BACK PAIN AND REQUESTING SOMETHING FOR PAIN. PT REMINDED TO CALL RN FOR ASSIST TO BSC. WILL GET HEAT PAD FOR PT LOW BACK PAIN.
--- NOTE | 2018-12-25 21:42 | NUR ---
PT REFUSED TYLENOL FOR PAIN BUT STATED PAIN 6/10 AFTER HEAT PAD AND REST. PT LATER UP TO COMMODE AFTER REQUESTING ASSIST WITH NO C/O BACK PAIN. PT BOYFRIEND WENT HOME. PT STATED THAT SHE HAD GIVEN, "HIM HALF OF MY FOOD". PT STATED SHE ATE YOGURT SEVERAL TIMES TODAY AND HAD GIVEN HER BOYFRIEND HALF OF HER MEALS. PT GIVEN PHENERGAN 12.5 mg FOR CONTINUED C/O NAUSEA AND SHORTLY AFTER ATE HALF WHOLE WHEAT SANDWICH AND CHEESE AND CHIX BROTH. PT ABLE TO UPDATE MEDLIST AND STATED SHE CAN NOT REMEMBER WHEN SHE LAST HAD HER LANTUS AND BELIEVES SHE'S BEEN OUT OF LANTUS FOR APPRX THREE WEEKS. PT CONTINUED WATCHING TV AND IS NOW CURRENLTY SLEEPING. CALL LIGHT WITHIN REACH.
--- NOTE | 2018-12-26 00:45 | NUR ---
NO CHANGES FROM INITIAL SHIFT ASSESSMENT. PT PLEASANT AND COOPERATIVE REST OF SHIFT, SLEEPING, AND USING CALL LIGHT APPROPRIATELY. PT WITH NO FURTHER C/O NAUSEA AND/OR BACK PAIN. CALL LIGHT WITHIN REACH.
[2018-12-26 03:38] LABS: BASOPHILS ABSOLUTE AUTO 0.03 K/mm3 (0.00-0.23); BASOPHILS PERCENT AUTO 0 % (0-2); EOSINOPHILS ABSOLUTE AUTO 0.04 K/mm3 (0.00-0.68); EOSINOPHILS PERCENT AUTO 1 % (0-6); Hematocrit 29.7 % (33.0-51.0); IMMATURE GRAN ABSOLUTE AUTO 0.01 K/mm3 (0.00-0.10); IMMATURE GRAN PERCENT AUTO 0 % (0-1); LYMPHOCYTES ABSOLUTE AUTO 3.17 K/mm3 (0.84-5.20); LYMPHOCYTES PERCENT AUTO 43 % (21-46); MONOCYTES ABSOLUTE AUTO 0.96 K/mm3 (0.16-1.47); MONOCYTES PERCENT AUTO 13 % (4-13); Mean Corpuscular HGB Conc 33.7 g/dL (31.5-36.5); Mean Corpuscular Volume 86 fL (80-100); NEUTROPHILS ABSOLUTE AUTO 3.11 K/mm3 (1.96-9.15); NEUTROPHILS PERCENT AUTO 43 % (41-73); Platelet Count 253 K/mm3 (150-400); RDW Coefficient Variation 15.3 % (11.7-14.2); RDW Standard Deviation 47.7 fL (35.1-46.3); Red Blood Cell Count 3.45 M/mm3 (3.80-5.20); White Blood Cell Count 7.32 K/mm3 (4.00-11.30)
[2018-12-26 03:52] LABS: Magnesium, Blood 1.8 mg/dL (1.6-2.4)
[2018-12-26 03:53] LABS: Anion Gap 7 mmol/L (6-16); Blood Urea Nitrogen 9 mg/dL (8-24); Bun/Creatinine Ratio 17.2 (12.0-20.0); CO2, Blood 26 mmol/L (21-32); Calcium, Blood 8.5 mg/dL (8.5-10.1); Chloride, Blood 110 mmol/L (98-108); Creatinine, Blood 0.52 mg/dL (0.40-1.00); Glomerular Filtration Rate >60 (60-); Glucose, Blood 69 mg/dL (70-99); Potassium, Blood 3.4 mmol/L (3.5-5.5); Sodium, Blood 143 mmol/L (136-145)
--- NOTE | 2018-12-26 10:33 | NUR ---
PT IS UP IN ROOM, FEEDING SELF, A/O AND OTHER THAN SOME MINOR RESIDUAL NAUSEA THAT COMES AND GOES, PT IS DOING VERY WELL. AM CBG NOTED AND NO COVERAGE.
--- NOTE | 2018-12-26 11:24 | NUR ---
PT COMPLETED SHOWER AND AMBUALTE INDEPENDENTLY. R FOOT WOUND CLEANED WITH WOUND SPRAY, DRYED, AND REDSGED. PT IS A/O AND RELAXED.
--- NOTE | 2018-12-26 14:23 | NUR ---
PT HAS BEEN REQUESTING MANY EXTRA SNACK BEFORE AND AFTER LUNCH DISPITE EDUCATIION ATTEMPTS. PT VS HAVE BEEN STABLE AND CBG'S NOTE.
--- NOTE | 2018-12-26 15:16 | NUR ---
PT REPORT CALLED TO LORENZO KINGSLEY AND PT WILL BE TRANSFERED TO 358 VIA W/C.
--- NOTE | 2018-12-26 17:26 | NUR ---
PT AOX4 AND COOPERATIVE OF CARE. PT GOT SETTLED INTO ROOM AND ALREADY HAS WENT FOR WALK TWICE SINCE ARRIVING TO FLOOR. PT IS VERY UP BEAT AND HAPPY TO BE ABLE TO GET OUT. CBG 221 TREATED PER EMAR. PT DID REPORT SHE IS HAVING MAJOR CRAMPING AND HEAVY VAGINAL BLEEDING WHICH SHE STATED IS NOT NORMAL FOR HER. WILL CONTINUE TO MONITOR.
--- NOTE | 2018-12-26 23:46 | NUR ---
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 PT ALSO VOICED SHE TENDS TO NOT TAKE HER INSULIN FOR WEEKS OR TO CHECK BLOOD GLUCOSE DUE TO COST AND NO MONEY. PT HAS A BOYFRIEND "BHARAT" SPENDING NIGHT WHOM IS ALSO HOMELESS. THIS NURSE EDUCATED PATIENT ON HOW TO READ FOOD LABELS TO INCLUDE THE ICE TEA SHE HAD AT SIDE IN ROOM WHICH CONTAINED 24 GRAMS OF SUGAR PER THE LABEL, NEED TO TAKE CHECK INSULIN (MAINTAIN DAILY LOG AND RECORD GLUCOSE READINGS) TO LEAD A HEALTHIER LIFE STYLE WITH ACKNOWLEDGEMENT NOTED. PT TENDS TO BE NON COMPLIANT WITH MANAGING HER DIABETES TO THIS POINT.
--- NOTE | 2018-12-27 06:26 | NUR ---
SHIFT SUMMARY: 38 Y/O FEMALE RESTED COMFORTABLY ALL SHIFT WITH BOYFRIEND (BHARAT) AT SIDE IN LOUNGE CHAIR, PT VOICED SHE FREQUENTLY IS A NON COMPLIANT DIABETIC DUE BEING HOMELESS AND UNABLE TO AFFORD INSULIN SUPPLIES AND THUS SHE RARELY CHECKS BLOOD GLUCOSE, DOES NOT TAKE INSULIN OR EAT PROPER DIET. PT NOTED TO SMOKE CIGARETTES OFTEN ABLE OUTSIDE AT SMOKING BENCH DURING THIS SHIFT. PTS RIGHT FOOT WOUND SCABBED OVER AND COVERED WITH MEPLEX AND DAVE WRAP DRESSING (WEARS WALKING CAST BOOT ON RIGHT FOOT, DENIES PAIN OR NAUSEA, BED LOW POSITION, CALL LIGHT AT SIDE.
--- NOTE | 2018-12-27 13:40 | NUR ---
SHE JUST WENT OUTSIDE WITH 2 FRIENDS. SHE STARTED OUT THE MORNING NAUSEATED. IT PASSED AFTER PHENERGAN, ZOFRAN AND SODA CRACKERS. LATER I GAVE HER ADVIL FOR STOMACH PAIN. SHE SAID NO PAIN AFTERWARD. HER TRIP OUTSIDE IS THE 4TH TRIP OUTSIDE THIS SHIFT SO FAR. MD SURI VENTURA. SHE REMAINS ON VANCOMYCIN Q8HR. SHE HAS A FOAM DRESSING ON HER R FOOT. IT HAS HAD SOME BLOODY DRAINAGE. THE FIRST 2 TIMES SHE WENT OUTSIDE TODAY HER FRIEND PUSHED HER IN A W/C. THE LAST 2 TIMES, SHE WALKED.
--- NOTE | 2018-12-27 15:31 | NUR ---
ATE LUNCH. SHOWERED. R FOOT FOAM DRESSING CHANGED. SHE ALSO REPLACED THE DAVE WRAP AFTER I PUT ON THE FOAM. NOW SHE HAS GONE OUTSIDE AGAIN VIA W/C. BEFORE GOING OUTSIDE, SHE ASKED TO HAVE HER BLOOD SUGAR CHECKED BECAUSE SHE FELT LOW. CBG 204. SHE WAS GIVEN A LITTLE SNACK TO TAKE OUTSIDE WITH HER SINCE SHE DIDN'T WANT TO STAY IN THE ROOM.
--- NOTE | 2018-12-27 17:33 | NUR ---
SHE IS TEARFUL. SHE SAYS SHE GETS EMOTIONAL OFF AND ON ALL THE TIME, NOT PARTICULARLY ANY ONE REASON. HER BOYFRIEND IS LEAVING FOR THE NIGHT I THINK. SHE IS WALKING HIM OUT NOW. CBG'S MOSTLY OVER 300. SS INSULIN INCREASED TO MEDIUM TODAY. SHE SNACKS BETWEEN MEALS SO IT IS NOT SURPRISING HER CBG'S ARE HIGH. R FOOT DRESSING CHANGED TODAY AFTER A SHOWER. NO NEED FOR ANTIEMETICS SINCE BREAKFAST TIME.
--- NOTE | 2018-12-27 18:05 | NUR ---
SHE WAS JUST ASKING TO BE DISCHARGED BECAUSE SHE GOT HER LIVING ARRANGEMENTS WORKED OUT. I CALLED . SHE SAID NO NOT UNTIL AM SO ADAM CAN RECEIVE 2 MORE DOSES OF IV VANCO. ADAM WAS DISAPPOINTED BUT AGREEABLE.
--- NOTE | 2018-12-27 23:10 | NUR ---
REFUSING INSULIN TONIGHT *LATE ENTRY FOR 2099 PT IS REFUSING SCHEDULED HUMALOG AND LANTUS AT 2099. FIRST CBG IS 72, PT REQUESTS SNACK. GIVEN JELL-O AND SANDWICH RECHECKED CBG AN HOUR LATER, CBG IS 245. PT REFUSED INSULIN AT THIS TIME, STATING "MY BLOOD SUGAR WILL DROP BY MORNING". ADVISED PT THAT THIS IS A HIGH CBG LEVEL AND WARRANTS INSULIN NORMALLY. PT INSISTS THAT SHE KNOWS HER BODY BEST AND SHOULD NOT RECIEVE INSULIN AT THIS TIME.
--- NOTE | 2018-12-27 23:13 | NUR ---
ANXIETY PT FOUND IN BR HYSTERICALLY CRYING, SWEATING, AND DRY HEAVING (NO EMESIS OCCURED). PT INSISTS BLOOD SUGAR IS LOW. IT IS 299. PT AGAIN STATES NO INSULIN IT WILL DROP. MD AWARE. PT REPORTS STOMACH PAIN IS 10/10, CRAMPING. PT GIVEN PHENERGAN, ZOFRAN, AND MOTRIN. PT RETURNED TO BED AND IS RESTING AT THIS TIME. WILL CONT TO MONITOR.
[2018-12-28 04:41] LABS: BASOPHILS ABSOLUTE AUTO 0.04 K/mm3 (0.00-0.23); BASOPHILS PERCENT AUTO 1 % (0-2); EOSINOPHILS ABSOLUTE AUTO 0.06 K/mm3 (0.00-0.68); EOSINOPHILS PERCENT AUTO 1 % (0-6); Hematocrit 32.9 % (33.0-51.0); Hemoglobin 10.5 g/dL (11.5-16.0); IMMATURE GRAN ABSOLUTE AUTO 0.03 K/mm3 (0.00-0.10); IMMATURE GRAN PERCENT AUTO 1 % (0-1); LYMPHOCYTES ABSOLUTE AUTO 3.06 K/mm3 (0.84-5.20); LYMPHOCYTES PERCENT AUTO 50 % (21-46); MONOCYTES PERCENT AUTO 10 % (4-13); Mean Corpuscular HGB 28.6 pg (26.0-34.0); Mean Corpuscular HGB Conc 31.9 g/dL (31.5-36.5); Mean Platelet Volume 10.5 fL (9.1-12.4); NEUTROPHILS ABSOLUTE AUTO 2.33 K/mm3 (1.96-9.15); NEUTROPHILS PERCENT AUTO 38 % (41-73); Platelet Count 292 K/mm3 (150-400); RDW Coefficient Variation 16.5 % (11.7-14.2); RDW Standard Deviation 53.5 fL (35.1-46.3); Red Blood Cell Count 3.67 M/mm3 (3.80-5.20); White Blood Cell Count 6.12 K/mm3 (4.00-11.30)
[2018-12-28 04:48] LABS: Mean Corpuscular Volume 90 fL (80-100)
[2018-12-28 05:01] LABS: Magnesium, Blood 2.2 mg/dL (1.6-2.4)
[2018-12-28 05:03] LABS: Anion Gap 4 mmol/L (6-16); Blood Urea Nitrogen 18 mg/dL (8-24); Bun/Creatinine Ratio 31.3 (12.0-20.0); CO2, Blood 31 mmol/L (21-32); Chloride, Blood 103 mmol/L (98-108); Creatinine, Blood 0.58 mg/dL (0.40-1.00); Glomerular Filtration Rate >60 (60-); Glucose, Blood 359 mg/dL (70-99); Potassium, Blood 5.3 mmol/L (3.5-5.5); Sodium, Blood 138 mmol/L (136-145)
--- NOTE | 2018-12-28 06:24 | NUR ---
SHIFT SUMMARY PT REFUSES INSULIN MOST OF NIGHT UNTIL THIS AM WHEN CBG MET 300s. PT REPORTS IF SHE "TAKES INSULIN WITH A BLOOD SUGAR BELOW 250", SHE WILL TANK BY THE MORNING. PT IS A&O X 4 WITH FREQUENT MOOD CHANGES, HAD ONE EMOTIONAL OUTBURTS TONIGHT. PT FOUND CRYING AND VOMITNG IN BR, SEE PRIOR NOTES. LS CLEAR, RESP E/U ON RA. FREQUENT N/V, TREATED c PRN ZOFRAN AND PHENERGAN PER ORDERS. PT HAS COMPLETED REMAINING 2 DOSES OF VANCO ORDERED, READY FOR DC THIS AM. PT IS RESTNIG IN BED AT THIS TIME, CALL LT IN REACH. WILL CONT TO MONITOR AND PROVIDE CARE UNTIL PRESUMED BY ONCOMING RN.
[2018-12-28] MEDS ORDERED: DOXY100 PO (11:50)
--- NOTE | 2018-12-28 13:15 | NUR ---
SHE DISCHARGED WITH A FRIEND AT 1242 WITH ALL INSTRUCTIONS AND BELONGINGS. HER OTHER FRIEND MARLEN IS WORKING CLOSELY WITH HER ON FOLLOWING THROUGH WITH HER LIFE RESPONSIBILITIES AND HEALTHCARE. ADAM'S SON CAME IN WITH MARLEN TODAY TWICE. ALL F/U APPTS MADE FOR ADAM BEFORE SHE LEFT. SHE HAS BEEN CHEERFUL ALL DAY. CBG'S HIGH BUT LAST ONE WAS AFTER A 1/2 SANDWICH AND DIET PUDDING. NO COMPLAINTS TODAY OF NAUSEA OR PAIN.
== END 2018-12-28 12:42 | disposition home or self-care (01) | DRG 871 ==
LOC: ER 08:46 → ICUW 10:41 → MEDS 12-26 15:25
PROVIDERS: Emergency Medicine; ADMIT Internal Medicine
DX: A41.9 Sepsis, unspecified organism (principal); E10.10 Type 1 diabetes mellitus with ketoacidosis without coma; E87.1 Hypo-osmolality and hyponatremia; L03.115 Cellulitis of right lower limb; E87.6 Hypokalemia; E10.621 Type 1 diabetes mellitus with foot ulcer; F19.90 Other psychoactive substance use, unspecified, uncomplicated; F17.210 Nicotine dependence, cigarettes, uncomplicated; E10.40 Type 1 diabetes mellitus with diabetic neuropathy, unspecified; F32.9 Major depressive disorder, single episode, unspecified; Z59.0 Homelessness; Z91.14 Patient's other noncompliance with medication regimen; Z79.4 Long term (current) use of insulin; Z89.421 Acquired absence of other right toe(s); Z88.5 Allergy status to narcotic agent
CPT/HCPCS: 36415; 73620; 73720; 80048; 80053; 80202; 81001; 82010; 82947; 83036; 83690; 83735; 85025; 85651; 86140; 87070; 87075; 87077; 87086; 87147; 87186; 87205; 87493; 93005; 93010; 96365; 96366; 96375; 99285-25; A9577; C1751; C9113; J1630; J1650; J1815; J2405; J2543; J2550; J3370; J3480; J7030; J7042; J7050

== ENCOUNTER 2019-01-18 14:03 | Inpatient (IN) | payer OTHER ==
[~2019-01-18] VITALS: Ht 172.7 cm; Wt 55.5 kg
[2019-01-18 14:34] LABS: BASOPHILS PERCENT AUTO 1 % (0-2); EOSINOPHILS ABSOLUTE AUTO 0.01 K/mm3 (0.00-0.68); EOSINOPHILS PERCENT AUTO 0 % (0-6); Hemoglobin 12.4 g/dL (11.5-16.0); IMMATURE GRAN PERCENT AUTO 1 % (0-1); LYMPHOCYTES ABSOLUTE AUTO 3.58 K/mm3 (0.84-5.20); LYMPHOCYTES PERCENT AUTO 29 % (21-46); MONOCYTES ABSOLUTE AUTO 0.63 K/mm3 (0.16-1.47); MONOCYTES PERCENT AUTO 5 % (4-13); Mean Corpuscular HGB 28.4 pg (26.0-34.0); Mean Corpuscular HGB Conc 30.2 g/dL (31.5-36.5); Mean Corpuscular Volume 94 fL (80-100); NEUTROPHILS ABSOLUTE AUTO 7.95 K/mm3 (1.96-9.15); NEUTROPHILS PERCENT AUTO 64 % (41-73); Platelet Count 543 K/mm3 (150-400); RDW Coefficient Variation 15.5 % (11.7-14.2); RDW Standard Deviation 54.1 fL (35.1-46.3); Red Blood Cell Count 4.36 M/mm3 (3.80-5.20); White Blood Cell Count 12.37 K/mm3 (4.00-11.30)
[2019-01-18 15:33] LABS: Alanine Aminotransfer (ALT/SGP 23 U/L (12-78); Albumin, Blood 3.2 g/dL (3.4-5.0); Albumin/Globulin Ratio 0.8 (0.8-1.8); Alk Phos 142 U/L (50-136); Anion Gap 22 mmol/L (6-16); Aspartate Aminotrans (AST/SGOT 10 U/L (12-37); Bilirubin, Total 0.3 mg/dL (0.1-1.0); Blood Urea Nitrogen 19 mg/dL (8-24); Bun/Creatinine Ratio 41.1 (12.0-20.0); CO2, Blood 8 mmol/L (21-32); Calcium, Blood 8.1 mg/dL (8.5-10.1); Chloride, Blood 101 mmol/L (98-108); Creatinine, Blood 0.46 mg/dL (0.40-1.00); Globulin, Blood 4.2 g/dL (2.2-4.0); Glomerular Filtration Rate >60 (60-); Glucose, Blood 433 mg/dL (70-99); Potassium, Blood 4.4 mmol/L (3.5-5.5); Sodium, Blood 131 mmol/L (136-145); Total Protein, Blood 7.4 g/dL (6.4-8.2)
[2019-01-18 17:02] LABS: Base Excess Venous -24.6 mmol/L; Bicarbonate Venous 8.9 mmol/L (24.0-30.0); PCO2 Venous 18.8 mmHg (38-42); PO2 Venous 126 mmHg (38-42); pH Blood Venous 7.07 (7.34-7.37)
[2019-01-18] MEDS ORDERED: NOVOLOG FL100 UNIT/1 SC (17:28)
[2019-01-18] MEDS ORDERED: BASAGLAR K100 UNIT/1 SC (17:29)
[2019-01-18] MEDS ORDERED: PANT40 PO (17:29)
[2019-01-18] MEDS ORDERED: GABA400 PO (17:29)
[2019-01-18] MEDS ORDERED: Cymbalta20 MG PO (17:29)
[2019-01-18] MEDS ORDERED: TRAZ50 PO (17:29)
[2019-01-18] MEDS ORDERED: Imitrex50 MG PO (17:47)
[2019-01-18] MEDS ORDERED: Novolog100 UNIT/2 SC (17:48)
--- NOTE | 2019-01-18 19:20 | NUR ---
PT ARRIVED VIA STRETCHER WITH LR RUNNING. PT NEEDING TO USE RESTROOM. PT IS QUIET AND WITHDRAWN AND WILL OBTAIN CBG... WHICH WAS 326 PER FINGER STICK. REPORTED TO NOC SHIFT.
--- NOTE | 2019-01-18 22:05 | NUR ---
PT AWAKENED C/O THROAT PAIN. THROAT ASSESSMENT WITH ENLARGED UVULA. NO HIVES OR RASH NOTED. MAXIPINE STOPPED. HOSPITALIST CALLED. NEW ORDERS TO GIVE BENADRYL IV 25mg. CALL PHARAMACY TO VERIFY PREVIOUS VISIT WITH MAXIPINE.
--- NOTE | 2019-01-18 23:23 | NUR ---
UPDATE: PT UVULAR LESS SWOLLEN. PT REMAINED 99% ON RA. BENADRYL 25mg IVP GIVEN. HOSPITALIST CAME TO BEDSIDE AND WAS UPDATED. VSS. WILL CONTINUE TO MONITOR.
[2019-01-19 00:57] LABS: Anion Gap 14 mmol/L (6-16); Blood Urea Nitrogen 12 mg/dL (8-24); CO2, Blood 12 mmol/L (21-32); Calcium, Blood 7.9 mg/dL (8.5-10.1); Chloride, Blood 110 mmol/L (98-108); Creatinine, Blood 0.36 mg/dL (0.40-1.00); Glomerular Filtration Rate >60 (60-); Glucose, Blood 189 mg/dL (70-99); Sodium, Blood 136 mmol/L (136-145)
[2019-01-19 05:34] LABS: Anion Gap 12 mmol/L (6-16); Blood Urea Nitrogen 10 mg/dL (8-24); Bun/Creatinine Ratio 25.8 (12.0-20.0); CO2, Blood 15 mmol/L (21-32); Calcium, Blood 7.7 mg/dL (8.5-10.1); Chloride, Blood 110 mmol/L (98-108); Creatinine, Blood 0.39 mg/dL (0.40-1.00); Glomerular Filtration Rate >60 (60-); Glucose, Blood 198 mg/dL (70-99); Potassium, Blood 3.5 mmol/L (3.5-5.5); Sodium, Blood 137 mmol/L (136-145)
--- NOTE | 2019-01-19 07:52 | NUR ---
0715-ASSUMED CARE OF PT. PT IS ALERT AND ORIENTED. FOLLOWING COMMANDS. DENIES PAIN AT THIS TIME. PT IS ON INSULIN DRIP @ 1 UNIT/HR WHICH WAS INCREASED TO 1.5 UNITS/HR. CURRENT BLOOD SUGAR IS 211. D5 1/2 NS INFUSING AT 150ML/HR. AFEBRILE. 0745-SEEN BY DR. SOUSA. UPDATED HIM OF PT'S STATUS. PT WILL BE GIVEN BREAKFAST. PT DENIES NAUSEA OR VOMITING. PT HAS STATED SHE'S HUNGRY. CALLED TO DR. GOODWIN'S OFFICE, DR. GOODWIN IS NOT ON-CALL TODAY. CALLED TO DR. RODRIGUEZ OFFICE AND LEFT MESSAGE IN THE ANSWERING MACHINE. 0801-JOSE WITH DR. RODRIGUEZ OFFICE CALLED BACK. SHE STATED SHE WILL TALK TO DR. RODRIGUEZ OF WHO WILL SEE THE PATIENT AND SHE WILL CALL THIS NURSE BACK.
--- NOTE | 2019-01-19 13:32 | NUR ---
INSULIN DRIP WAS TURNED OFF @ 1230. PT TOLERATED ALL FOOD SERVED AND MORE. NO NAUSEA AND VOMITTING NOTED.
--- NOTE | 2019-01-19 15:34 | NUR ---
1335- DR RODRIGUEZ AT BEDSIDE. ASSISTED HIM WITH DEBRIDING THE LEFT GREAT TOE AND R PLANTAR FOOT. BACITRICIN WAS APPLIED TO LEFT GREAT TOE AFTER DEBRIDEMENT AND WAS THEN COVERED WITH GAUZE AND COBAN BY DR. RODRIGUEZ. 1410-DRESSED R PLANTAR OPEN WOUND AREA ABOUT 1.2 IN DIAMETER WITH SALINE PL[address] ALGENACE DRESSING AND MEPELIX DRESSING. 1430-REPORT WAS GIVEN TO [facility]. PT WILL BE TRANSFERED TO ROOM 359. 1534 -DR. GIRALDO WAS NOTIFIED OF PATIENT'S COMPLAINTS OF PAIN. ACETAMENOPHEN WAS NOT EFFECTIVE PER PATIENT. PT WAS TRANSFERED AT THIS TIME.
--- NOTE | 2019-01-19 16:00 | NUR ---
pt arrived to room from icu via w/c and transferred independently to bed. sleeping when checked on but then awoke and started reporting pain to both feet.
--- NOTE | 2019-01-19 19:20 | NUR ---
shift summary pt up to bathroom independently. stated she hadn't gotten any of her regular meds since arrival to hospital. spoke with md and received orders. reports she continues to have pain to her feet due to treatment earlier today.
[2019-01-19 19:32] LABS: Vancomycin, Trough 11.2 ug/mL (5.0-10.0)
--- NOTE | 2019-01-20 04:08 | NUR ---
SHIFT SUMMARY PT ADMITTED WITH DKA. 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 FULL CODE. ADA DIET. SCDS AND LOVENOX FOR DVT PROPHYLAXIS. LRS RUNNING AT 100 MLS/HR. 20G IV TO L FA. NOTED TO HAVE CELLULITIS, AND DR. SWENSON OPENED SCABBED WOUND IN AREA OF R GREAT TOW AND SECOND TOE AMPUATION. HX OF OSTEOMYLEITIS. PT STATED HAVING NO INSULIN FOR A FEW DAYS BECAUSE HER BOYFRIED KICKED HER OUT OF THE HOUSE AND SHE DID NOT HAVE ACCESS TO HER MEDICATIONS. THE PT HAS HAD COMPLAINTS OF PAIN THIS NIGHT, MEDICATED PER EMAR X3. PT HAS ASKED FOR SNACKS THROUGHOUT THE NIGHT, THEY WERE GIVEN PER PATIENT REQUEST. THE PT HAS APPEARED TO SLEEP COMFORTABLY OFF AND ON SO FAR THIS SHIFT. JUST MEDICATED FOR PAIN AND PT APPEARS TO BE SLEEPING COMFORTABLY AT THIS TIME WITH NO APPARENT SIGNS OF ACUTE DISTRESS. ABLE TO MAKE NEEDS KNOWN AND CALL LIGHT IN REACH.
[2019-01-20 06:21] LABS: Anion Gap 8 mmol/L (6-16); Blood Urea Nitrogen 14 mg/dL (8-24); Bun/Creatinine Ratio 34.1 (12.0-20.0); CO2, Blood 24 mmol/L (21-32); Calcium, Blood 8.2 mg/dL (8.5-10.1); Chloride, Blood 109 mmol/L (98-108); Creatinine, Blood 0.41 mg/dL (0.40-1.00); Glomerular Filtration Rate >60 (60-); Glucose, Blood 258 mg/dL (70-99); Potassium, Blood 3.6 mmol/L (3.5-5.5); Sodium, Blood 141 mmol/L (136-145)
[2019-01-20 11:50] LABS: Vancomycin, Trough 16.4 ug/mL (5.0-10.0)
--- NOTE | 2019-01-20 16:23 | NUR ---
PT IS A/OX3, PLEASANT AND COOPERATIVE, THE PT IS UP IND IN HER ROOM, THE PT APPEARS TO BE BREATHING EASILY ON RA, THE PT HAS WALKED OUTSIDE AT LEAST 3 TIMES TODAY, THE PT WAS MEDICATED FOR PAIN T/O THE DAY, THE PT WAS MEDICATED FOR NAUSEAX2 TODAY, PT WAS TAKEN TO MRI TODAY AND TOLERATED WELL, BS REMAINED STABLE, CALL LIGHT IN REACH WILL CONTINUE TO MONITOR AND ASSESS FOR CHANGES
--- NOTE | 2019-01-20 20:01 | NUR ---
1930: ASSUMED CARE OF PATIENT. PT SITTING ON SIDE OF BED WITH SIGNIFICANT OTHER IN ROOM. PT AO4, DENIES PAIN/NAUSEA/SOB. PT GOING OUTSIDE WITH FWW WITH HER SPOUSE. PT CALM AND COOPERATIVE, ABLE TO MAKE HER NEEDS KNOWN. CALL UREÑA WITHIN REACH.
--- NOTE | 2019-01-21 05:10 | NUR ---
PATIENT GOT UP TO BRP AND VOIDED. PT WENT OUTSIDE FOR A CIGARETTE. CAME BACK ASKING FOR PAIN MED, AND NAUSEA MED. MEDS GIVEN PER EMAR. PRE-OP CHECK LIST STARTED. BLOOD CONSENT SIGNED AND VERBAL RELEASE FORM. CALL UREÑA WITHIN REACH.
--- NOTE | 2019-01-21 08:22 | NUR ---
per dr cifuentes, no short acting ins. only 15 u long acting ins. pending surg, npo.
--- NOTE | 2019-01-21 08:30 | NUR ---
PT PLEASANT COOP A/O. FRIEND IN ROOM AT CHAIRSIDE. SHE STATES PAIN IS 9/10 WANTS DOWN TO 6/10. H/R REG, NO MURMER NOTED. NO TELE. LUNGS CLEAR, RESP EASY, UNLABORED. ON R.A. BT X4 ALST BM YEST. VOIDS INDEPENDANT TO BATHROOM. NPO FOR PENDING SURG ON TOE. BED IN LOW POSITION, CALL LITE IN REACH, CALLS APPROP
--- NOTE | 2019-01-21 08:30 | NUR ---
PT REFUSED INSULIN. EVEN WITH LOWER DOSE. STATES WILL DEFINATELY DROP TOO FAR WHEN NPO.
--- NOTE | 2019-01-21 14:31 | NUR ---
GOING TO DAY SURG NOW.
--- NOTE | 2019-01-21 14:55 | NUR ---
History, Chart, Medications and Allergies reviewed before start of procedure. Lungs clear T/O to Auscultation. Patient confirms NPO status and agrees with scheduled surgery. Pre-Op teaching done. Pt verbalizes understanding.
--- NOTE | 2019-01-21 16:26 | NUR ---
01/21/19 1626 Pito Ortega PT WAS ON SCHEDULED ANTIBIOTICS AND RECIEVED PRIOR TO ARRIVAL TO THE OR.
--- NOTE | 2019-01-21 16:39 | NUR ---
PATIENT REQUESTS CHANGE OF IV DRESSING
--- NOTE | 2019-01-21 16:59 | NUR ---
REPORT TO FERMIN GEIGER RN.
--- NOTE | 2019-01-21 17:18 | NUR ---
Clinical Visit: Pt is alert, oriented. SHe just got out of her amputation procedure. She reports that she is feeling shooting and radiating pain from her left foot. Discussed advanced care planning. She reports, "I have nobody" when asked who her alternate decision maker is. She is estranged from her family members. She states, "My family doesn't deal with sickness and I'm sick all the time." She startes tearing up at this point and appears very overwhelmed. Instructed that I could follow up with her another time. She is getting postsurgical vital signs and the nurse is in to assess her. She does mention that there is a woman that works here in admitting, Jemima Bloom. She is adopting the pt's son and she has discussed her being able to make her decisions before so that her children wouldn't have to make them. She accepts the advance directive and states that she will review it. Will remain available.
--- NOTE | 2019-01-21 18:36 | NUR ---
PT PLEASANT TODAY, DOES GET TEARFUL ON OCCATION. DID GO OUT TO SMOKE AFTER SURG. DID WELL. VSS. DID EAT DINNER AND SANDWICH WELL. NO BLEEDING NOTED. IS KEEPING FEET ON PILLOWS ELEVATED. NO OTHER CONCERNS AT THIS TIME.
[2019-01-22] MEDS ORDERED: ACET325 PO (13:49)
[2019-01-22] MEDS ORDERED: Nicoderm Cq1 EAC1 TOP (13:50)
[2019-01-22] MEDS ORDERED: OXYC5 PO (13:52)
[2019-01-22] MEDS ORDERED: Vsl#3 Capsule1 EACH PO (13:53)
[2019-01-22] MEDS ORDERED: Bactrim Ds Tab1 EACH PO (13:54)
--- NOTE | 2019-01-22 15:13 | NUR ---
SHIFT SUMMARY PT AWAKE DURING SHIFT REPORT. IV TO LAC INFUSING AM ABX, BUT LEAKING. IVF'S STOPPED. PT UP TO BTHRM INDEPENDENTLY. ADMITTED FOR DKA WITH RECENT L GREAT TOE AMPUTATION. PER SHIFT REPORT, PT OUT TO K OFF AND ON ALL NIGHT. CBG THIS AM @ 450. PT DENIED NONCOMPLIANCE WITH DIET. NEW IV PLACED TO RFA. IV ABX RESTARTED AND REMAINING IV ABX GIVEN PER EMAR. DR SOUSA NOTIFIED OF PT'S CBG AND PT REQUESTED PO PAIN MEDICATION INSTEAD OF FENTANYL. NEW ORDERS PLACED. PT TO D/C IF CBG IMPROVED; NEXT CBG 263. D/C ORDERS PLACED. REMAINING IV ABX GIVEN PER EMAR. PT REQUESTED PHONE NUMBER FOR [facility]; GIVEN AND SOMEONE TO TO TALK WITH PT. PT REPORTED SAFE D/C TODAY AND WOULD DISCUSS FUTURE ASSISTANCE FROM BPA IF NEEDED. PT CALLED FRIEND TO PICK HER UP FOR D/C AND THEN AMBULATED OUTSIDE TO [facility] WITH VISITOR. D/C INSTRUCTIONS DISCUSSED WITH PT AND MEDS FAXED TO [facility] PER PT REQUEST. HARD COPY OF OXYCODONE GIVEN TO PT WITH D/C INSTRUCTIONS. PT NOW RETURNED TO . IV TO RFA REMOVED. PT WAITING FOR RIDE AT THIS TIME.
== END 2019-01-22 15:42 | disposition home or self-care (01) | DRG 853 ==
LOC: ER 14:03 → ICUW 17:47 → ICUE 17:47 → MEDS 17:47 → ICUE 18:38 → MEDS 01-19 15:32
PROVIDERS: Emergency Medicine; Nurse Practitioner Acute Care; Physician Assistant; Podiatrist; ADMIT Internal Medicine
PROC: 0JBQ0ZZ Excision of Right Foot Subcutaneous Tissue and Fascia, Open Approach (ICD-10-PCS; 2019-01-21)
PROC: 0Y6Q0Z0 Detachment at Left 1st Toe, Complete, Open Approach (ICD-10-PCS; principal; 2019-01-21 15:15)
DX: A41.02 Sepsis due to Methicillin resistant Staphylococcus aureus (principal); E10.10 Type 1 diabetes mellitus with ketoacidosis without coma; M86.172 Other acute osteomyelitis, left ankle and foot; E87.1 Hypo-osmolality and hyponatremia; L97.522 Non-pressure chronic ulcer of other part of left foot with fat layer exposed; Z79.4 Long term (current) use of insulin; L03.032 Cellulitis of left toe; L60.0 Ingrowing nail; G40.909 Epilepsy, unspecified, not intractable, without status epilepticus; E10.621 Type 1 diabetes mellitus with foot ulcer; E10.69 Type 1 diabetes mellitus with other specified complication; Z91.14 Patient's other noncompliance with medication regimen; L97.519 Non-pressure chronic ulcer of other part of right foot with unspecified severity; F17.210 Nicotine dependence, cigarettes, uncomplicated; E10.40 Type 1 diabetes mellitus with diabetic neuropathy, unspecified; Z59.0 Homelessness
CPT/HCPCS: 36415; 73630; 73718; 80048; 80053; 80202; 82010; 82803; 82947; 83605; 85025; 85651; 87040; 87081; 88305; 88311; 99285; A9270; C9113; J0692; J1200; J1650; J1815; J1885; J2405; J2543; J2704; J3010; J3370; J3480; J7042; J7050; J7120

== ENCOUNTER 2019-02-17 13:15 | Emergency (ER) | payer OTHER ==
[~2019-02-17] VITALS: Ht 172.7 cm; Wt 56.7 kg
[~2019-02-17 13:15] MED LIST changes: +BASAGLAR K100 UNIT/1 SC; +Cymbalta20 MG PO; +GABA400 PO; +Imitrex50 MG PO; +NOVOLOG FL100 UNIT/1 SC; +Nicoderm Cq1 EAC1 TOP; +Novolog100 UNIT/2 SC; +OXYC5 PO; +TRAZ50 PO; +Vsl#3 Capsule1 EACH PO
[2019-02-17 14:02] LABS: BASOPHILS ABSOLUTE AUTO 0.05 K/mm3 (0.00-0.23); BASOPHILS PERCENT AUTO 1 % (0-2); EOSINOPHILS ABSOLUTE AUTO 0.07 K/mm3 (0.00-0.68); EOSINOPHILS PERCENT AUTO 1 % (0-6); Hemoglobin 10.4 g/dL (11.5-16.0); IMMATURE GRAN ABSOLUTE AUTO 0.03 K/mm3 (0.00-0.10); IMMATURE GRAN PERCENT AUTO 0 % (0-1); LYMPHOCYTES ABSOLUTE AUTO 1.88 K/mm3 (0.84-5.20); LYMPHOCYTES PERCENT AUTO 19 % (21-46); MONOCYTES ABSOLUTE AUTO 0.73 K/mm3 (0.16-1.47); MONOCYTES PERCENT AUTO 8 % (4-13); Mean Corpuscular HGB 28.5 pg (26.0-34.0); Mean Corpuscular HGB Conc 31.5 g/dL (31.5-36.5); Mean Corpuscular Volume 90 fL (80-100); Mean Platelet Volume 9.7 fL (9.1-12.4); NEUTROPHILS ABSOLUTE AUTO 6.94 K/mm3 (1.96-9.15); NEUTROPHILS PERCENT AUTO 72 % (41-73); Platelet Count 491 K/mm3 (150-400); RDW Coefficient Variation 15.5 % (11.7-14.2); RDW Standard Deviation 51.2 fL (35.1-46.3); Red Blood Cell Count 3.65 M/mm3 (3.80-5.20)
[2019-02-17 14:27] LABS: Alanine Aminotransfer (ALT/SGP 29 U/L (12-78); Albumin, Blood 2.5 g/dL (3.4-5.0); Albumin/Globulin Ratio 0.6 (0.8-1.8); Alk Phos 127 U/L (50-136); Anion Gap 5 mmol/L (6-16); Aspartate Aminotrans (AST/SGOT 19 U/L (12-37); Bilirubin, Total 0.2 mg/dL (0.1-1.0); Blood Urea Nitrogen 16 mg/dL (8-24); Bun/Creatinine Ratio 41.5 (12.0-20.0); CO2, Blood 25 mmol/L (21-32); Chloride, Blood 104 mmol/L (98-108); Creatinine, Blood 0.39 mg/dL (0.40-1.00); Globulin, Blood 4.1 g/dL (2.2-4.0); Glomerular Filtration Rate >60 (60-); Glucose, Blood 452 mg/dL (70-99); Sodium, Blood 134 mmol/L (136-145); Total Protein, Blood 6.6 g/dL (6.4-8.2)
[2019-02-17] MEDS ORDERED: CLIN300 PO (16:17)
== END 2019-02-17 17:05 | disposition home or self-care (01) ==
LOC: ER 13:15
PROVIDERS: Emergency Medicine
DX: E10.621 Type 1 diabetes mellitus with foot ulcer (principal); L97.521 Non-pressure chronic ulcer of other part of left foot limited to breakdown of skin; L50.9 Urticaria, unspecified; E10.40 Type 1 diabetes mellitus with diabetic neuropathy, unspecified; F41.9 Anxiety disorder, unspecified; F32.9 Major depressive disorder, single episode, unspecified; J45.909 Unspecified asthma, uncomplicated; F17.210 Nicotine dependence, cigarettes, uncomplicated; Z89.412 Acquired absence of left great toe; Z88.5 Allergy status to narcotic agent; Z88.1 Allergy status to other antibiotic agents; Z79.899 Other long term (current) drug therapy
CPT/HCPCS: 70450; 71045; 80053; 82947; 84484; 85025; 99284-25; J1815; Q0163

== ENCOUNTER 2019-06-08 18:29 | Inpatient (IN) | payer OTHER ==
[~2019-06-08] VITALS: Ht 167.6 cm; Wt 67.7 kg
[~2019-06-08 18:29] MED LIST changes: +CLIN300 PO; +Humalog100 UNIT/3 SC; -Novolog100 UNIT/2 SC
[2019-06-08 19:09] LABS: Base Excess Venous -32.6 mmol/L; Bicarbonate Venous 5.5 mmol/L (24.0-30.0); PCO2 Venous 15.9 mmHg (38-42); PO2 Venous 101 mmHg (38-42); pH Blood Venous <6.80 (7.34-7.37)
[2019-06-08 19:10] LABS: Chloride (POC) 103 mmol/L (98-108); Creatinine (POC) 0.8 mg/dL (0.6-1.0); Glucose (ISTAT POC) >700 mg/dL (70-99); Hemoglobin (POC) 18.4 g/dL (12.0-16.0); Potassium (POC) 7.8 mmol/L (3.5-5.5); Sodium (POC) 121 mmol/L (135-148); Total CO2 (POC) 5 mmol/L (21-32)
[2019-06-08 19:10] LABS: Calcium, Ionized (POC) 1.12 mmol/L (1.10-1.46); Chloride (POC) 102 mmol/L (98-108); Creatinine (POC) 0.7 mg/dL (0.6-1.0); Glucose (ISTAT POC) >700 mg/dL (70-99); Hemoglobin (POC) 20.4 g/dL (12.0-16.0); Potassium (POC) 8.1 mmol/L (3.5-5.5); Sodium (POC) 121 mmol/L (135-148); Total CO2 (POC) <5 mmol/L (21-32)
[2019-06-08 19:18] LABS: Hematocrit 50.5 % (33.0-51.0); Hemoglobin 15.1 g/dL (11.5-16.0); Mean Corpuscular HGB 27.2 pg (26.0-34.0); Mean Corpuscular HGB Conc 29.9 g/dL (31.5-36.5); Mean Corpuscular Volume 91 fL (80-100); Mean Platelet Volume 11.4 fL (9.1-12.4); Platelet Count 444 K/mm3 (150-400); RDW Coefficient Variation 14.7 % (11.7-14.2); RDW Standard Deviation 48.8 fL (35.1-46.3); Red Blood Cell Count 5.55 M/mm3 (3.80-5.20); White Blood Cell Count 32.67 K/mm3 (4.00-11.30)
[2019-06-08 19:38] LABS: BAND PERCENT MAN 7 % (0-8); BASOPHILS PERCENT MAN 0 % (0-2); EOSINOPHILS PERCENT MAN 0 % (0-6); LYMPHOCYTES ABSOLUTE MAN 3.92 K/mm3 (0.84-5.20); LYMPHOCYTES PERCENT MAN 12 % (21-46); MONOCYTES ABSOLUTE MAN 3.26 K/mm3 (0.16-1.47); MONOCYTES PERCENT MAN 10 % (4-13); NEUTROPHILS ABSOLUTE MAN 25.48 K/mm3 (1.96-9.15); SEG NEUTROPHILS PERCENT MAN 71 % (41-73); TOTAL CELLS COUNTED 100
[2019-06-08 20:57] LABS: Magnesium, Blood 2.3 mg/dL (1.6-2.4)
[2019-06-08 20:59] LABS: Alanine Aminotransfer (ALT/SGP 25 U/L (12-78); Albumin, Blood 3.2 g/dL (3.4-5.0); Albumin/Globulin Ratio 0.8 (0.8-1.8); Alk Phos 134 U/L (50-136); Anion Gap 29 mmol/L (6-16); Aspartate Aminotrans (AST/SGOT 16 U/L (12-37); Bilirubin, Total 0.3 mg/dL (0.1-1.0); Blood Urea Nitrogen 31 mg/dL (8-24); Bun/Creatinine Ratio 45.9 (12.0-20.0); CO2, Blood <5 mmol/L (21-32); Calcium, Blood 8.2 mg/dL (8.5-10.1); Chloride, Blood 99 mmol/L (98-108); Creatinine, Blood 0.68 mg/dL (0.40-1.00); Globulin, Blood 4.1 g/dL (2.2-4.0); Glomerular Filtration Rate >60 (60-); Glucose, Blood 578 mg/dL (70-99); Phosphorus, Blood 5.4 mg/dL (2.5-4.9); Potassium, Blood 5.2 mmol/L (3.5-5.5); Sodium, Blood 132 mmol/L (136-145); Total Protein, Blood 7.3 g/dL (6.4-8.2)
[2019-06-08 21:19] LABS: Beta-hydroxybutyrate 119.3 mg/dL (0.2-2.8)
[2019-06-08 21:29] LABS: Source, Urine Catheter
[2019-06-08 21:33] LABS: Bilirubin, Urine Neg (Neg); Blood, Urine 2+ (Neg); Glucose Qualitative, Urine 4+ (Neg); Ketones, Urine 4+ (Neg); Leukocyte Esterase, Urine Neg (Neg); Nitrite, Urine Neg (Neg); Protein, Urine 3+ (Neg); Urobilinogen, Urine NORM (Normal)
[2019-06-08 21:39] LABS: Appearance, Urine Clear (Clear); Color, Urine Yellow (P-Yellow)
[2019-06-08 21:40] LABS: Bacteria Mod /hpf; Granular Casts 0-2 /lpf (0); Hyaline Casts 0-2 /lpf (0-2); Red Blood Cells, Urine 0-2 /hpf (0-2); Squamous Epithelial Cells Few /hpf (Few); Trichomonas Few /hpf; White Blood Cells, Urine 0-2 /hpf (0-5)
[2019-06-08 22:01] LABS: Glucose, Blood 530 mg/dL (70-99)
[2019-06-08 22:07] LABS: U Amphetamine Screen Not Detected; U Barbituate Screen Not Detected; U Benzodiazapine Screen Not Detected; U Buprenorphine Screen Not Detected; U Cannabinoids Screen DETECTED; U Cocaine Screen Not Detected; U Methadone Screen Not Detected; U Methamphetamine Screen Not Detected; U Opiates Screen Not Detected; U Oxycodone Screen Not Detected; U Phencyclidine Screen Not Detected; U Propoxyphene Screen Not Detected
[2019-06-09 00:58] LABS: Anion Gap 21 mmol/L (6-16); Blood Urea Nitrogen 29 mg/dL (8-24); CO2, Blood 5 mmol/L (21-32); Calcium, Blood 7.4 mg/dL (8.5-10.1); Chloride, Blood 112 mmol/L (98-108); Glomerular Filtration Rate >60 (60-); Glucose, Blood 353 mg/dL (70-99); Potassium, Blood 4.6 mmol/L (3.5-5.5); Sodium, Blood 138 mmol/L (136-145)
[2019-06-09 04:23] LABS: BASOPHILS ABSOLUTE AUTO 0.06 K/mm3 (0.00-0.23); BASOPHILS PERCENT AUTO 0 % (0-2); EOSINOPHILS ABSOLUTE AUTO 0.01 K/mm3 (0.00-0.68); EOSINOPHILS PERCENT AUTO 0 % (0-6); Hematocrit 38.8 % (33.0-51.0); Hemoglobin 12.5 g/dL (11.5-16.0); IMMATURE GRAN ABSOLUTE AUTO 0.25 K/mm3 (0.00-0.10); IMMATURE GRAN PERCENT AUTO 1 % (0-1); LYMPHOCYTES ABSOLUTE AUTO 3.42 K/mm3 (0.84-5.20); LYMPHOCYTES PERCENT AUTO 14 % (21-46); MONOCYTES PERCENT AUTO 6 % (4-13); Mean Corpuscular HGB 27.2 pg (26.0-34.0); Mean Corpuscular HGB Conc 32.2 g/dL (31.5-36.5); Mean Platelet Volume 10.3 fL (9.1-12.4); NEUTROPHILS PERCENT AUTO 79 % (41-73); Platelet Count 313 K/mm3 (150-400); RDW Coefficient Variation 14.1 % (11.7-14.2); RDW Standard Deviation 42.9 fL (35.1-46.3); Red Blood Cell Count 4.59 M/mm3 (3.80-5.20); White Blood Cell Count 24.94 K/mm3 (4.00-11.30)
[2019-06-09 04:24] LABS: Mean Corpuscular Volume 85 fL (80-100)
[2019-06-09 04:49] LABS: Alanine Aminotransfer (ALT/SGP 19 U/L (12-78); Albumin, Blood 2.8 g/dL (3.4-5.0); Albumin/Globulin Ratio 0.8 (0.8-1.8); Alk Phos 98 U/L (50-136); Anion Gap 14 mmol/L (6-16); Aspartate Aminotrans (AST/SGOT 13 U/L (12-37); Bilirubin, Total 0.3 mg/dL (0.1-1.0); Blood Urea Nitrogen 21 mg/dL (8-24); Bun/Creatinine Ratio 48.4 (12.0-20.0); CO2, Blood 9 mmol/L (21-32); Calcium, Blood 7.4 mg/dL (8.5-10.1); Chloride, Blood 117 mmol/L (98-108); Creatinine, Blood 0.43 mg/dL (0.40-1.00); Globulin, Blood 3.3 g/dL (2.2-4.0); Glomerular Filtration Rate >60 (60-); Glucose, Blood 226 mg/dL (70-99); Sodium, Blood 140 mmol/L (136-145); Total Protein, Blood 6.1 g/dL (6.4-8.2)
[2019-06-09 10:49] LABS: Anion Gap 9 mmol/L (6-16); Blood Urea Nitrogen 16 mg/dL (8-24); Bun/Creatinine Ratio 32.6 (12.0-20.0); CO2, Blood 15 mmol/L (21-32); Calcium, Blood 7.6 mg/dL (8.5-10.1); Chloride, Blood 115 mmol/L (98-108); Creatinine, Blood 0.49 mg/dL (0.40-1.00); Glomerular Filtration Rate >60 (60-); Glucose, Blood 217 mg/dL (70-99); Potassium, Blood 3.7 mmol/L (3.5-5.5); Sodium, Blood 139 mmol/L (136-145)
[2019-06-09 14:03] LABS: Anion Gap 10 mmol/L (6-16); Blood Urea Nitrogen 13 mg/dL (8-24); Bun/Creatinine Ratio 31.9 (12.0-20.0); CO2, Blood 16 mmol/L (21-32); Calcium, Blood 7.6 mg/dL (8.5-10.1); Chloride, Blood 114 mmol/L (98-108); Creatinine, Blood 0.41 mg/dL (0.40-1.00); Glomerular Filtration Rate >60 (60-); Glucose, Blood 173 mg/dL (70-99); Potassium, Blood 3.2 mmol/L (3.5-5.5); Sodium, Blood 140 mmol/L (136-145)
[2019-06-10 03:47] LABS: BASOPHILS ABSOLUTE AUTO 0.02 K/mm3 (0.00-0.23); BASOPHILS PERCENT AUTO 0 % (0-2); EOSINOPHILS ABSOLUTE AUTO 0.01 K/mm3 (0.00-0.68); EOSINOPHILS PERCENT AUTO 0 % (0-6); Hematocrit 33.8 % (33.0-51.0); Hemoglobin 11.3 g/dL (11.5-16.0); IMMATURE GRAN ABSOLUTE AUTO 0.04 K/mm3 (0.00-0.10); IMMATURE GRAN PERCENT AUTO 0 % (0-1); LYMPHOCYTES ABSOLUTE AUTO 2.63 K/mm3 (0.84-5.20); LYMPHOCYTES PERCENT AUTO 23 % (21-46); MONOCYTES ABSOLUTE AUTO 0.69 K/mm3 (0.16-1.47); MONOCYTES PERCENT AUTO 6 % (4-13); Mean Corpuscular HGB 27.4 pg (26.0-34.0); Mean Corpuscular HGB Conc 33.4 g/dL (31.5-36.5); Mean Platelet Volume 10.1 fL (9.1-12.4); NEUTROPHILS ABSOLUTE AUTO 8.22 K/mm3 (1.96-9.15); NEUTROPHILS PERCENT AUTO 71 % (41-73); Platelet Count 252 K/mm3 (150-400); RDW Coefficient Variation 14.7 % (11.7-14.2); RDW Standard Deviation 42.9 fL (35.1-46.3); Red Blood Cell Count 4.13 M/mm3 (3.80-5.20); White Blood Cell Count 11.61 K/mm3 (4.00-11.30)
[2019-06-10 03:48] LABS: Mean Corpuscular Volume 82 fL (80-100)
[2019-06-10 04:04] LABS: Alanine Aminotransfer (ALT/SGP 15 U/L (12-78); Albumin, Blood 2.3 g/dL (3.4-5.0); Albumin/Globulin Ratio 0.7 (0.8-1.8); Alk Phos 84 U/L (50-136); Anion Gap 10 mmol/L (6-16); Aspartate Aminotrans (AST/SGOT 15 U/L (12-37); Bilirubin, Total 0.2 mg/dL (0.1-1.0); Blood Urea Nitrogen 12 mg/dL (8-24); Bun/Creatinine Ratio 23.1 (12.0-20.0); CO2, Blood 19 mmol/L (21-32); Calcium, Blood 8.1 mg/dL (8.5-10.1); Chloride, Blood 110 mmol/L (98-108); Creatinine, Blood 0.52 mg/dL (0.40-1.00); Globulin, Blood 3.1 g/dL (2.2-4.0); Glomerular Filtration Rate >60 (60-); Glucose, Blood 284 mg/dL (70-99); Potassium, Blood 3.3 mmol/L (3.5-5.5); Sodium, Blood 139 mmol/L (136-145); Total Protein, Blood 5.4 g/dL (6.4-8.2)
[2019-06-11 05:48] LABS: BASOPHILS ABSOLUTE AUTO 0.02 K/mm3 (0.00-0.23); BASOPHILS PERCENT AUTO 0 % (0-2); EOSINOPHILS ABSOLUTE AUTO 0.02 K/mm3 (0.00-0.68); EOSINOPHILS PERCENT AUTO 0 % (0-6); Hematocrit 35.7 % (33.0-51.0); Hemoglobin 11.6 g/dL (11.5-16.0); IMMATURE GRAN ABSOLUTE AUTO 0.02 K/mm3 (0.00-0.10); IMMATURE GRAN PERCENT AUTO 0 % (0-1); LYMPHOCYTES ABSOLUTE AUTO 2.15 K/mm3 (0.84-5.20); LYMPHOCYTES PERCENT AUTO 30 % (21-46); MONOCYTES ABSOLUTE AUTO 0.68 K/mm3 (0.16-1.47); MONOCYTES PERCENT AUTO 9 % (4-13); Mean Corpuscular HGB Conc 32.5 g/dL (31.5-36.5); Mean Corpuscular Volume 83 fL (80-100); Mean Platelet Volume 10.9 fL (9.1-12.4); NEUTROPHILS ABSOLUTE AUTO 4.31 K/mm3 (1.96-9.15); NEUTROPHILS PERCENT AUTO 60 % (41-73); Platelet Count 241 K/mm3 (150-400); RDW Coefficient Variation 15.4 % (11.7-14.2); RDW Standard Deviation 45.7 fL (35.1-46.3)
[2019-06-11 06:07] LABS: Alanine Aminotransfer (ALT/SGP 25 U/L (12-78); Albumin/Globulin Ratio 0.9 (0.8-1.8); Alk Phos 103 U/L (50-136); Anion Gap 9 mmol/L (6-16); Aspartate Aminotrans (AST/SGOT 18 U/L (12-37); Bilirubin, Total 0.2 mg/dL (0.1-1.0); Blood Urea Nitrogen 20 mg/dL (8-24); Bun/Creatinine Ratio 36.6 (12.0-20.0); CO2, Blood 23 mmol/L (21-32); Calcium, Blood 8.8 mg/dL (8.5-10.1); Chloride, Blood 104 mmol/L (98-108); Creatinine, Blood 0.55 mg/dL (0.40-1.00); Globulin, Blood 3.5 g/dL (2.2-4.0); Glomerular Filtration Rate >60 (60-); Magnesium, Blood 1.9 mg/dL (1.6-2.4); Potassium, Blood 3.5 mmol/L (3.5-5.5); Sodium, Blood 136 mmol/L (136-145); Total Protein, Blood 6.5 g/dL (6.4-8.2)
[2019-06-11 06:14] LABS: Glucose, Blood 664 mg/dL (70-99)
[2019-06-11 08:14] LABS: Glucose, Blood 459 mg/dL (70-99)
[2019-06-11] MEDS ORDERED: LEVFLO500 PO (11:18)
== END 2019-06-11 11:57 | disposition home or self-care (01) | DRG 637 ==
LOC: ER 18:29 → ICUW 20:23 → ICUE 20:23 → MEDS 20:23 → ICUE 20:31 → MEDS 06-10 12:48 → ENPENDDIS 06-11 10:00 → MEDS 06-11 11:57
PROVIDERS: Emergency Medicine; Internal Medicine; ADMIT Hospitalist
DX: E10.11 Type 1 diabetes mellitus with ketoacidosis with coma (principal); G92 Toxic encephalopathy; E87.1 Hypo-osmolality and hyponatremia; N39.0 Urinary tract infection, site not specified; E87.5 Hyperkalemia; G43.909 Migraine, unspecified, not intractable, without status migrainosus; E10.621 Type 1 diabetes mellitus with foot ulcer; L97.512 Non-pressure chronic ulcer of other part of right foot with fat layer exposed; E10.40 Type 1 diabetes mellitus with diabetic neuropathy, unspecified; F17.210 Nicotine dependence, cigarettes, uncomplicated; Z79.4 Long term (current) use of insulin; Z89.411 Acquired absence of right great toe; Z89.422 Acquired absence of other left toe(s)
CPT/HCPCS: 36415; 36416; 71045; 73630; 80047; 80048; 80053; 81001; 82010; 82803; 82947; 83735; 84100; 85014; 85025; 87077; 87086; 87186; 93005; 93010; 96361; 96365; 96375; 99285-25; A9270; C9113; J0610; J1650; J1815; J1956; J2060; J2405; J2765; J3480; J7030; J7042; J7050

== ENCOUNTER 2019-07-17 12:07 | Inpatient (IN) | payer OTHER ==
[~2019-07-17] VITALS: Ht 172.7 cm; Wt 63.7 kg
[~2019-07-17 12:07] MED LIST changes: +LEVFLO500 PO
[2019-07-17 12:41] LABS: BASOPHILS ABSOLUTE AUTO 0.07 K/mm3 (0.00-0.23); BASOPHILS PERCENT AUTO 0 % (0-2); EOSINOPHILS ABSOLUTE AUTO 0.02 K/mm3 (0.00-0.68); EOSINOPHILS PERCENT AUTO 0 % (0-6); Hematocrit 32.5 % (33.0-51.0); Hemoglobin 10.2 g/dL (11.5-16.0); IMMATURE GRAN ABSOLUTE AUTO 0.07 K/mm3 (0.00-0.10); IMMATURE GRAN PERCENT AUTO 0 % (0-1); LYMPHOCYTES ABSOLUTE AUTO 1.89 K/mm3 (0.84-5.20); LYMPHOCYTES PERCENT AUTO 10 % (21-46); MONOCYTES ABSOLUTE AUTO 1.91 K/mm3 (0.16-1.47); MONOCYTES PERCENT AUTO 10 % (4-13); Mean Corpuscular HGB 26.8 pg (26.0-34.0); Mean Corpuscular HGB Conc 31.4 g/dL (31.5-36.5); Mean Corpuscular Volume 85 fL (80-100); Mean Platelet Volume 9.4 fL (9.1-12.4); NEUTROPHILS ABSOLUTE AUTO 14.71 K/mm3 (1.96-9.15); NEUTROPHILS PERCENT AUTO 79 % (41-73); Platelet Count 568 K/mm3 (150-400); RDW Coefficient Variation 15.3 % (11.7-14.2); RDW Standard Deviation 47.9 fL (35.1-46.3); Red Blood Cell Count 3.81 M/mm3 (3.80-5.20); White Blood Cell Count 18.67 K/mm3 (4.00-11.30)
[2019-07-17 12:53] LABS: Alanine Aminotransfer (ALT/SGP 17 U/L (12-78); Albumin, Blood 2.3 g/dL (3.4-5.0); Albumin/Globulin Ratio 0.4 (0.8-1.8); Alk Phos 154 U/L (50-136); Anion Gap 8 mmol/L (6-16); Aspartate Aminotrans (AST/SGOT 22 U/L (12-37); Bilirubin, Total 0.2 mg/dL (0.1-1.0); Blood Urea Nitrogen 11 mg/dL (8-24); Bun/Creatinine Ratio 23.8 (12.0-20.0); CO2, Blood 25 mmol/L (21-32); Calcium, Blood 8.8 mg/dL (8.5-10.1); Chloride, Blood 100 mmol/L (98-108); Creatinine, Blood 0.46 mg/dL (0.40-1.00); Globulin, Blood 5.4 g/dL (2.2-4.0); Glomerular Filtration Rate >60 (60-); Glucose, Blood 69 mg/dL (70-99); Potassium, Blood 4.2 mmol/L (3.5-5.5); Sodium, Blood 133 mmol/L (136-145); Total Protein, Blood 7.7 g/dL (6.4-8.2)
--- NOTE | 2019-07-17 18:45 | NUR ---
SEIZURE PADS PLACED.
--- NOTE | 2019-07-17 19:34 | NUR ---
PT CBG CRITICALLY LOW EARLIER. PT REPORTED BEING BRITTLE DIABETIC AND DID NOT WANT IV INSULIN AT INITIAL LOW CBG. PT WAS GIVEN ORANGE JUICE AND CHEESE. RECHECK CBG WAS LOWER, PT AGREED TO HAVE IV GLUCOSE. PT ALSO ATE MORE SNACK. PT RECHECK AFTER THAT 137. GUSTAVO RN GIVEN REPORT. DR MADERA NOTIFIED PT IS TO BE NPO AFTER MIDNIGHT. REPORTS TO CHECK CBG EVERY 4 HOURS AND TO HOLD LANTUS DOSE FOR TONIGHT. REPORTS TO KEEP IVF AT NORMAL SALINE ORDERED. CHARGE NURSE ASSITED WITH PT EARLIER WHEN CBG WAS LOW. UGSTAVO RN AND ENVIRONMENTAL TECHNICAL OFFICER UPDATED ON DR ORDERS.
[2019-07-18 04:38] LABS: BASOPHILS ABSOLUTE AUTO 0.06 K/mm3 (0.00-0.23); BASOPHILS PERCENT AUTO 1 % (0-2); EOSINOPHILS ABSOLUTE AUTO 0.11 K/mm3 (0.00-0.68); EOSINOPHILS PERCENT AUTO 1 % (0-6); Hematocrit 28.6 % (33.0-51.0); Hemoglobin 8.9 g/dL (11.5-16.0); IMMATURE GRAN ABSOLUTE AUTO 0.05 K/mm3 (0.00-0.10); IMMATURE GRAN PERCENT AUTO 0 % (0-1); LYMPHOCYTES ABSOLUTE AUTO 1.68 K/mm3 (0.84-5.20); LYMPHOCYTES PERCENT AUTO 14 % (21-46); MONOCYTES ABSOLUTE AUTO 1.29 K/mm3 (0.16-1.47); MONOCYTES PERCENT AUTO 10 % (4-13); Mean Corpuscular HGB 26.9 pg (26.0-34.0); Mean Corpuscular HGB Conc 31.1 g/dL (31.5-36.5); Mean Corpuscular Volume 86 fL (80-100); Mean Platelet Volume 9.9 fL (9.1-12.4); NEUTROPHILS ABSOLUTE AUTO 9.28 K/mm3 (1.96-9.15); NEUTROPHILS PERCENT AUTO 74 % (41-73); Platelet Count 528 K/mm3 (150-400); RDW Coefficient Variation 15.5 % (11.7-14.2); RDW Standard Deviation 49.1 fL (35.1-46.3); Red Blood Cell Count 3.31 M/mm3 (3.80-5.20); White Blood Cell Count 12.47 K/mm3 (4.00-11.30)
[2019-07-18 04:55] LABS: Anion Gap 6 mmol/L (6-16); Blood Urea Nitrogen 14 mg/dL (8-24); Bun/Creatinine Ratio 29.2 (12.0-20.0); CO2, Blood 26 mmol/L (21-32); Calcium, Blood 8.4 mg/dL (8.5-10.1); Chloride, Blood 103 mmol/L (98-108); Creatinine, Blood 0.48 mg/dL (0.40-1.00); Glomerular Filtration Rate >60 (60-); Glucose, Blood 241 mg/dL (70-99); Potassium, Blood 4.1 mmol/L (3.5-5.5); Sodium, Blood 135 mmol/L (136-145)
--- NOTE | 2019-07-18 05:10 | NUR ---
DR ALEXANDER CAME TO SEE PATIENT AND WE HAVE A CONSULT IN WITH PODIARTY TOMORROW. THE PLAN IS FOR AN I&D. PHOTOS WERE TAKEN OF HER WOUNDS ON THE RT FOOT. AND PHOTOS OF HER LT FOOT 1ST AND 2ND PARTIALLY AMPUTATED TOES.
--- NOTE | 2019-07-18 05:25 | NUR ---
WARM WET TOWEL WRAPPED AROUND RT FOOT, TO HELP CLEAN UP THE DRIED DRAINAGE FROM THE VERY SMALL HOLES LEAKING PURULENT FLUID ON THE TOP OF HER FOOT. IV INFILTRATED, AND AN 18G POWERGLIDE WAS PLACED IN RT UPPER ARM. PATIENT'S PAIN HAS BEEN MANAGED WITH PO MEDICATIONS. NO OTHER ACUTE CHANGES.
--- NOTE | 2019-07-18 10:25 | NUR ---
PT TRANSPORTED TO [facility]. AGREES WITH PLANNED SURGERY. DR. SWENSON IN TO SEE PT AND OBTAIN CONSENT. PT C/O HEADACHE AT 02/08.
--- NOTE | 2019-07-18 13:51 | NUR ---
ARRIVED FROM PACU VIA GURNEY, AWAKE, WANTS TO GO OUTSIDE WITH FAMILY, R FOOT W/ GAUZE AND DAVE WRAP, SCANT SANGUINOUS DRAINAGE NOTED BY TOE AREA, VS TAKEN, PT INSISTS ON GOING OUTSIDE, CBG 67 STATES "I TOOK A BITE OF CANDY" DENIES ANY PAIN AT THIS TIME.
[2019-07-18 17:28] LABS: Vancomycin, Trough 15.3 ug/mL (5.0-10.0)
--- NOTE | 2019-07-18 17:59 | NUR ---
DR. CONTRERAS NOTIFIED REGARDING CBG OF 486, COVERED PER SS ORDER, ORDERED TO RECHECK CBG IN 2 HRS, PT HAS BEEN OUT TO SMOKE SINCE POST OP, UNABLE TO FINISH POST OP VS, MEDICATED WITH PERCOCET ONCE SINCE POST OP AND FENTANYL THIS EVENING, REPORTS GETTING ADEQUATE PAIN RELIEF W/ CURRENT PAIN MEDS, DSG C/D/I, 1 PERSON ASSIST TO THE BSC, RLE ELEVATED W/ PILLOWS IN BED, NO ACUTE CHANGES THIS SHIFT.
[2019-07-19 05:08] LABS: BASOPHILS ABSOLUTE AUTO 0.04 K/mm3 (0.00-0.23); BASOPHILS PERCENT AUTO 0 % (0-2); EOSINOPHILS PERCENT AUTO 0 % (0-6); Hematocrit 26.5 % (33.0-51.0); Hemoglobin 8.4 g/dL (11.5-16.0); IMMATURE GRAN ABSOLUTE AUTO 0.07 K/mm3 (0.00-0.10); IMMATURE GRAN PERCENT AUTO 1 % (0-1); LYMPHOCYTES PERCENT AUTO 14 % (21-46); MONOCYTES ABSOLUTE AUTO 1.44 K/mm3 (0.16-1.47); MONOCYTES PERCENT AUTO 10 % (4-13); Mean Corpuscular HGB 26.8 pg (26.0-34.0); Mean Corpuscular HGB Conc 31.7 g/dL (31.5-36.5); Mean Corpuscular Volume 85 fL (80-100); Mean Platelet Volume 9.7 fL (9.1-12.4); NEUTROPHILS PERCENT AUTO 75 % (41-73); Platelet Count 543 K/mm3 (150-400); RDW Coefficient Variation 15.5 % (11.7-14.2); RDW Standard Deviation 47.9 fL (35.1-46.3); Red Blood Cell Count 3.13 M/mm3 (3.80-5.20); White Blood Cell Count 14.05 K/mm3 (4.00-11.30)
--- NOTE | 2019-07-19 06:27 | NUR ---
POD 1 S/P I&D OF R FOOT. PT VSS, DRESSING CDI. RLE ELEVATED WHILE IN BED. PT UP OOB MAINTAINING 50% WBS. PAIN MGD PER EMAR W/REP RELIEF. CBYuri LANG MD UPDATED, 1X SODE OF HUMALOG GIVEN. PT NEEDING FREQ EDUCATION TO MAINTAIN ADA DIET OPTIONS. IVF AND ABX CONT PER ORDERS. PT OUTSIDE TO SMOKE OFTEN, USES CALL LIGHT FOR ASSISTANCE, WILL CONT TO MONITOR UNTIL REP GIVEN TO ONCOMING RN.
[2019-07-19 10:48] LABS: Vancomycin, Trough 17.4 ug/mL (5.0-10.0)
--- NOTE | 2019-07-19 14:37 | NUR ---
PT OUTSIDE OF ROOM PT OUTSIDE OF ROOM AT THIS TIME VIA IND WHEELCHAIR USE. STATES SHE IS GOING OUT TO SMOKE, DESPITE SMOKING CESSATION EDUCATION. PT REMOVED NICOTINE PATCH
--- NOTE | 2019-07-19 14:51 | NUR ---
WOUND CARE PT UP IN ROOM T/O MORNING, WALKING OUTSIDE TO SMOKE OFTEN. FREQUENT EDUCATION AND ENCOURAGEMENT TO NOT SMOKE, LIMIT AMBULATION, AND TO ELEVATE RLE PROVIDED. PT ALSO EDUCATED TO NOT REMOVE DRESSING. UPON ARRIVAL TO ROOM AT APPROX 1130 TODAY PT WAS ATTEMPTING TO REMOVE DRESSING BY PULLING OFF THE GAUZE, WHICH APPEARED TO HAVE LARGE AMOUNT OF SANGENOUS DRAINAGE. DRESSING WAS THEN REINFORCED, RLE ELEVATED, AND ICE PACK PLACED. REDUCATION ON REST, ELEVATION, AND WOUND CARE. PT VERBALIZED UNDERSTANDING.
--- NOTE | 2019-07-19 15:07 | NUR ---
PT BACK TO ROOM AT THIS TIME.
--- NOTE | 2019-07-19 18:10 | NUR ---
SHIFT SUMMARY POD 2 S/P I&D OF RIGHT FOOT. PT A/O W/VSS. DRESSING TO RIGHT FOOT C/D/I AFTER REINFORCING TODAY. PT MORE COMPLIANT THIS AFTERNOON WITH RESTING/ ELEVATING FOOT. MEDICATED FOR PAIN PER EMAR. TOLERATING REGULAR ADA DIET, DENIES N/V. FREQUENTLY TAKES SELF OUTSIDE TO SMOKE DESPITE SMOKING CESSATION EDUCATION; PT REMOVED NICOTINE PATCH THIS MORNING. IS CURRENTLY IN ROOM VISITING WITH S/O; HAS CALL LIGHT IN REACH. WILL CONT TO MONITOR AND GIVE REPORT TO ONCOMING NOC NURSE.
--- NOTE | 2019-07-19 19:15 | NUR ---
PT IMPULSIVE, IRRITABLE AND REFUSING TO WAIT UNTIL IV VANCO COMPLETE. REPORTS NEEDING TO GO OUTSIDE AND SMOKE. PT EDUCATED ON IMPORTANCE OF COMPLETING ABX AND ENCOURAGED TO WAIT THE REMAINING 12 MINUTES UNTIL COMPLETE; PT REFUSED. PT ALSO REFUSED SMOKING CESSASTION EDUCATION. PT IS THEN OBSERVED WHEELING SELF DOWN THE HALLWAY HEADED OUTSIDE. IV APPEARS TO BE STOPPED AND UNHOOKED BY PT AND/OR S/O, TUBING LAYING ON FLOOR. CHARGE NURSE NOTIFIED.
--- NOTE | 2019-07-19 19:44 | NUR ---
PT AGITATED, ASKED DAY RN TO STOP ABX SO PT CAN GO OUTSIDE TO SMOKE, PT EDUCATED BY DAY RN ABOUT NEEDING TO COMPLETE ABX BEFORE UNCONNECTING IV. PT APPEARS TO HAVE DISCONNECTED IV BY SELF AND WAS WHEELING SELF IN HALLWAY TO GO OUTSIDE. PT APPEARS AGITTED WHILE IN HALLS. PLAN TO ASSESS IV PUNP/TUBING AND STIE WHEN PT RETURNS AND CONT TO EDUCATE AND REINFORCE TX PLAN.
--- NOTE | 2019-07-20 05:03 | NUR ---
POD 2 S/P I&D OF RLE. PT VSS T/O NIGHT. DRESSING INTACT W/NO CHANGES IN SHADOWING. PAIN MGD PER EMAR W/REP RELIEF. PT CONT TO C/O MIGRAINE; REP SOME RELIEF AFTER IMMITREX. PT UP INDEP IN ROOM, AMB W/FWW, IS NOT ALWAYS COMPLIANT W/WBS. PT ANXIOUS AND IRRITABLE AT TIMES, EDUCATION AND SUPPORT CONT PRN. PT NPO POST MIDNIGHT FOR POSS REPEAT I&D. IV ABX CONT PER ORDERS. PT USING CALL LIGHT FOR ASSISTANCE, WILL CONT TO MONITOR UNTIL REP GIVEN TO ONCOMING RN.
[2019-07-20 06:18] LABS: BASOPHILS ABSOLUTE AUTO 0.03 K/mm3 (0.00-0.23); BASOPHILS PERCENT AUTO 0 % (0-2); EOSINOPHILS PERCENT AUTO 1 % (0-6); Hematocrit 24.7 % (33.0-51.0); Hemoglobin 7.7 g/dL (11.5-16.0); IMMATURE GRAN ABSOLUTE AUTO 0.06 K/mm3 (0.00-0.10); IMMATURE GRAN PERCENT AUTO 1 % (0-1); LYMPHOCYTES ABSOLUTE AUTO 2.93 K/mm3 (0.84-5.20); LYMPHOCYTES PERCENT AUTO 30 % (21-46); MONOCYTES ABSOLUTE AUTO 1.25 K/mm3 (0.16-1.47); MONOCYTES PERCENT AUTO 13 % (4-13); Mean Corpuscular HGB 26.6 pg (26.0-34.0); Mean Corpuscular HGB Conc 31.2 g/dL (31.5-36.5); Mean Corpuscular Volume 85 fL (80-100); Mean Platelet Volume 9.2 fL (9.1-12.4); NEUTROPHILS ABSOLUTE AUTO 5.37 K/mm3 (1.96-9.15); NEUTROPHILS PERCENT AUTO 55 % (41-73); Platelet Count 520 K/mm3 (150-400); RDW Coefficient Variation 15.6 % (11.7-14.2); RDW Standard Deviation 48.5 fL (35.1-46.3); White Blood Cell Count 9.74 K/mm3 (4.00-11.30)
[2019-07-20] MEDS ORDERED: LANTUS SOLOSTAR SC (08:18)
[2019-07-20] MEDS ORDERED: Imitrex100 MG PO (08:19)
[2019-07-20] MEDS ORDERED: Cymbalta20 MG PO (08:20)
[2019-07-20] MEDS ORDERED: GABA300 PO (08:21)
[2019-07-20] MEDS ORDERED: Humalog SC (08:23)
[2019-07-20] MEDS ORDERED: TRAZ50 PO (08:24)
--- NOTE | 2019-07-20 13:10 | NUR ---
Permission given by patient to HAYDEE Helms to assist with care on 07/20/2019.
--- NOTE | 2019-07-20 17:03 | NUR ---
SHIFT SUMMARY NO ACUTE CHANGES THIS SHIFT. 2 PERCOCET FOR PAIN PRN. PT REPORTS HEADACHE HAS GONE AWAY THIS SHIFT. INDEP IN ROOM AND PT GOES OUT TO SMOKE. WAITING FOR DR. SWENSON TO COME CHANGE DRESSING TO FOOT. IV SL. IV ABX CHANGED TO PO. PT USES CALL LIGHT APPROPRIATELY.
--- NOTE | 2019-07-20 18:05 | NUR ---
DR. SWENSON IN TO CHANGE DRESSING. PLAN FOR OR TOMORROW. NPO AT MIDNIGHT.
[2019-07-21 05:31] LABS: BASOPHILS ABSOLUTE AUTO 0.04 K/mm3 (0.00-0.23); BASOPHILS PERCENT AUTO 0 % (0-2); EOSINOPHILS ABSOLUTE AUTO 0.11 K/mm3 (0.00-0.68); EOSINOPHILS PERCENT AUTO 1 % (0-6); Hematocrit 26.1 % (33.0-51.0); Hemoglobin 8.1 g/dL (11.5-16.0); IMMATURE GRAN ABSOLUTE AUTO 0.12 K/mm3 (0.00-0.10); IMMATURE GRAN PERCENT AUTO 1 % (0-1); LYMPHOCYTES PERCENT AUTO 25 % (21-46); MONOCYTES ABSOLUTE AUTO 1.41 K/mm3 (0.16-1.47); MONOCYTES PERCENT AUTO 13 % (4-13); Mean Corpuscular HGB 26.6 pg (26.0-34.0); Mean Corpuscular Volume 86 fL (80-100); Mean Platelet Volume 9.8 fL (9.1-12.4); NEUTROPHILS ABSOLUTE AUTO 6.28 K/mm3 (1.96-9.15); NEUTROPHILS PERCENT AUTO 59 % (41-73); Platelet Count 634 K/mm3 (150-400); RDW Coefficient Variation 15.5 % (11.7-14.2); RDW Standard Deviation 48.8 fL (35.1-46.3); Red Blood Cell Count 3.04 M/mm3 (3.80-5.20); White Blood Cell Count 10.66 K/mm3 (4.00-11.30)
--- NOTE | 2019-07-21 06:21 | NUR ---
SHIFT SUMMARY PT RESTED INTERMITTENTLY T/O NIGHT. AAOX4. NPO THIS AM FOR PROCEDURE. DISCOMFORT CONTROLLED WITH 2 PAIN PILLS Q4H + 25mcg FENTANYL X2 THIS SHIFT. NO NAUSEA/EMESIS. DRESSING TO RLE, SCANT AMOUNT OF SHADOWING OVER TOES. PT UP WALKING WITH FWW AND OUT TO SMOKE FREQUENTLY USING WHEELCHAIR. PT ENCOURAGE TO ADHEAR TO WEIGHTBEARING STATUS OF RLE. NO ACUTE CHANGES OVER NIGHT. PT RESTING AT THIS TIME WITH CALL LIGHT IN REACH.
--- NOTE | 2019-07-21 07:55 | NUR ---
NOTIFIED PT SIG OTHER OF TENTATIVE SURGERY TIME PER PT REQUEST.
--- NOTE | 2019-07-21 12:59 | NUR ---
PT TO DAY SURGERY AT THIS TIME. SIG OTHER NOTIFIED.
--- NOTE | 2019-07-21 13:05 | NUR ---
BROUGHT TO [facility] FROM SURGICAL FLOOR ADMISSION TO UNIT STARTED.
--- NOTE | 2019-07-21 14:03 | NUR ---
07/21/19 1403 Pito Ortega PT ON SCHEDULED ANTIBIOTICS AND RECIEVED PRIOR TO ARRIVAL TO OR.
--- NOTE | 2019-07-21 16:21 | NUR ---
POST OP S/P I&D TO R FOOT WITH PARTIAL WOUND CLOSURE. POST OP VS IN PROGRESS AND STABLE. PT CURRENTLY DENIES PAIN AT THIS TIME. ABLE TO WIGGLE TOES ON COMMAND, BUT REPORTS DECREASED SENSATION. DAVE WRAP CDI AND GAUZE TO TOES HAVE SCANT SS DRAINAGE. ELEVATED ON PILLOWS. UP WITH 1 SBA TO RESTROOM. MEGAN ADA DIET. VERIFIED WITH DR. SWENSON THAT WOUND VAC NEEDS TO BE PLACED TOMORROW. CALL LIGHT WITHIN REACH.
--- NOTE | 2019-07-22 07:56 | NUR ---
SHIFT SUMMARY: ADAM HAS RESTED COMFORTABLY FOR A SIGNIFICANT PORTION OF THE NIGHT. AT THE BEGINNIG OF THE SHIFT, SHE WAS TEARFUL AND ANXIOUS STATING THAT SHE WAS PAINFUL BUT THAT THE MEDICATION WAS INEFFECTIVE. THE IMPACT OF WALKING ON HER SURGICAL FOOT WAS DISCUSSED AND THE USE OF THE WHEELCHAIR STRONGLY RECOMMENDED. SHE DID USE THE WHEELCHAIR THE SECOND TIME SHE WENT OUT TO SMOKE. DRESSING TO RIGHT FOOT INTACT, WOUND VAC TO BE PLACED TODAY. SHE IS ABLE TO MAKE HER NEEDS KNOWN. SHE USES HER CALL LIGHT APPROPRIATELY. REPORT TO DAY SHIFT RN.
--- NOTE | 2019-07-22 13:03 | NUR ---
DR SWENSON REPORTS TO PLACE WOUND VAC TODAY AND THAT PT MAY BE DC'D TODAY FROM HIS STANDPOINT.
--- NOTE | 2019-07-22 14:33 | NUR ---
DR SWENSON REPORTED EARLIER TO PLACE WOUND VAC TO RIGHT FOOT. DRESSING TAKEN OFF. PT HAS WILLY IN PLACE. DR NOTIFIED, REPORTS TO TAKE OUT WICK'S AND PLACE WOUND VAC USING WHITE FOAM IF AVAIL. DISCUSSED PT'S PAIN AND ANXIETY REGARDING WOUND VAC BEING PLACED. SEE ORDERS.
--- NOTE | 2019-07-22 14:42 | NUR ---
HOME WOUND VAC PLACED BY GANG INVESTIGATOR WITH ASSIST WITH NO LEAKS. PT WAS MED FOR PAIN AND ANXIETY PER DR SWENSON.
[2019-07-22] MEDS ORDERED: Augmentin 875-1 EACH PO (16:41)
[2019-07-22] MEDS ORDERED: Doxycycline Mo100 M1 PO (16:43)
[2019-07-22] MEDS ORDERED: Percocet 5-3251 EACH PO (17:03)
--- NOTE | 2019-07-22 17:30 | NUR ---
DISCHARGE: PT/FAMILY REPORTS UNDERSTANDING OF DISCHARGE INSTRUCTIONS. PT EATING AND DRINKING, VOIDING, REPORTS BM YESTERDAY. PT REPORTS PAIN TOLERABLE ON PO PAIN MEDICATION. PT ALERT. FAMILY GIVING PT RIDE HOME. PT/FAMILY REPORTS HAVING APPR EQUIP AT HOME. METHODS ANALYST ASSISTED WITH H.H. AND WOUND VAC. PT SENT WITH SCRIPT, PAPERWORK, AND BELONGINGS WELL HOME WOUND VAC.
== END 2019-07-22 17:35 | disposition home or self-care (01) | DRG 854 ==
LOC: ER 12:07 → SURS 15:19
PROVIDERS: Emergency Medicine; Hospitalist; Pharmacist; Podiatrist; ADMIT Internal Medicine
PROC: 0JBQ0ZZ Excision of Right Foot Subcutaneous Tissue and Fascia, Open Approach (ICD-10-PCS; principal; 2019-07-18 10:30)
DX: A41.9 Sepsis, unspecified organism (principal); L02.611 Cutaneous abscess of right foot; E10.40 Type 1 diabetes mellitus with diabetic neuropathy, unspecified; K21.9 Gastro-esophageal reflux disease without esophagitis; G40.909 Epilepsy, unspecified, not intractable, without status epilepticus; J45.909 Unspecified asthma, uncomplicated; L97.513 Non-pressure chronic ulcer of other part of right foot with necrosis of muscle; G43.909 Migraine, unspecified, not intractable, without status migrainosus; D47.3 Essential (hemorrhagic) thrombocythemia; E10.621 Type 1 diabetes mellitus with foot ulcer; F17.210 Nicotine dependence, cigarettes, uncomplicated
CPT/HCPCS: 36415; 71045; 73701; 80048; 80053; 80202; 82947; 83605; 83735; 85025; 87040; 87070; 87071; 87075; 87076; 87077; 87147; 87185; 87186; 87205; 90714; 96374-59; 96375-59; 99285-25; A9270-GY; C1751; J1100; J1170; J1650; J1885; J2060; J2250; J2405; J2543; J2704; J3010; J3370; J7030; J7050; J7120; Q9967

== ENCOUNTER 2019-10-25 12:00 | Inpatient (IN) | payer OTHER ==
[~2019-10-25] VITALS: Ht 167.6 cm; Wt 62.4 kg
[~2019-10-25 12:00] MED LIST changes: +Augmentin 875-1 EACH PO; -BASAGLAR K100 UNIT/1 SC; +Doxycycline Mo100 M1 PO; +Humalog SC; -Humalog100 UNIT/3 SC; +Imitrex100 MG PO; +LANTUS SOLOSTAR SC
[2019-10-25 12:50] LABS: Source, Urine Catheter
[2019-10-25 12:57] LABS: Bilirubin, Urine Neg (Neg); Blood, Urine 2+ (Neg); Glucose Qualitative, Urine 4+ (Neg); Ketones, Urine 4+ (Neg); Leukocyte Esterase, Urine Neg (Neg); Nitrite, Urine Neg (Neg); Protein, Urine 2+ (Neg); Urobilinogen, Urine NORM (Normal)
[2019-10-25 13:14] LABS: Appearance, Urine Hazy (Clear); Color, Urine Yellow (P-Yellow)
[2019-10-25 13:17] LABS: White Blood Cells, Urine 0-2 /hpf (0-5)
[2019-10-25 13:18] LABS: Amorphous Mod (0-Heavy); Bacteria Mod /hpf; Red Blood Cells, Urine 0-2 /hpf (0-2); Squamous Epithelial Cells Few /hpf (Few)
[2019-10-25 13:19] LABS: U Amphetamine Screen Not Detected; U Barbituate Screen Not Detected; U Benzodiazapine Screen Not Detected; U Buprenorphine Screen Not Detected; U Cannabinoids Screen Not Detected; U Cocaine Screen Not Detected; U Methadone Screen Not Detected; U Methamphetamine Screen DETECTED; U Opiates Screen Not Detected; U Oxycodone Screen Not Detected; U Phencyclidine Screen Not Detected; U Propoxyphene Screen Not Detected
[2019-10-25] MEDS ORDERED: BENADRYL25 MG PO (13:30)
[2019-10-25] MEDS ORDERED: PANT20 PO (13:31)
[2019-10-25] MEDS ORDERED: HYDPAM50 PO (13:32)
[2019-10-25] MEDS ORDERED: PRAZOSIN HCL1 M2 PO (13:33)
[2019-10-25] MEDS ORDERED: ONDA4ODT SL (13:33)
[2019-10-25 13:37] LABS: BASOPHILS ABSOLUTE AUTO 0.12 K/mm3 (0.00-0.23); BASOPHILS PERCENT AUTO 1 % (0-2); EOSINOPHILS PERCENT AUTO 0 % (0-6); Hematocrit 48.6 % (33.0-51.0); Hemoglobin 14.6 g/dL (11.5-16.0); IMMATURE GRAN ABSOLUTE AUTO 0.19 K/mm3 (0.00-0.10); IMMATURE GRAN PERCENT AUTO 1 % (0-1); LYMPHOCYTES ABSOLUTE AUTO 2.96 K/mm3 (0.84-5.20); LYMPHOCYTES PERCENT AUTO 16 % (21-46); MONOCYTES PERCENT AUTO 5 % (4-13); Mean Corpuscular HGB 27.4 pg (26.0-34.0); Mean Corpuscular Volume 91 fL (80-100); Mean Platelet Volume 10.8 fL (9.1-12.4); NEUTROPHILS ABSOLUTE AUTO 14.13 K/mm3 (1.96-9.15); NEUTROPHILS PERCENT AUTO 77 % (41-73); Platelet Count 308 K/mm3 (150-400); RDW Standard Deviation 46.3 fL (35.1-46.3); Red Blood Cell Count 5.33 M/mm3 (3.80-5.20)
[2019-10-25] MEDS ORDERED: DULO30 PO (13:37)
[2019-10-25] MEDS ORDERED: GABA300 PO (13:38)
[2019-10-25] MEDS ORDERED: TRAZ100 PO (13:39)
[2019-10-25] MEDS ORDERED: BASAGLAR K100 UNIT/2 SC (13:41)
[2019-10-25] MEDS ORDERED: Humalog100 UNIT/3 SC (13:43)
[2019-10-25 13:57] LABS: Troponin I <0.015 ng/mL (0.000-0.040)
[2019-10-25 14:24] LABS: Alanine Aminotransfer (ALT/SGP 25 U/L (12-78); Albumin, Blood 4.1 g/dL (3.4-5.0); Albumin/Globulin Ratio 0.9 (0.8-1.8); Alk Phos 130 U/L (50-136); Aspartate Aminotrans (AST/SGOT 15 U/L (12-37); Bilirubin, Total 0.3 mg/dL (0.1-1.0); Blood Urea Nitrogen 18 mg/dL (8-24); Calcium, Blood 8.7 mg/dL (8.5-10.1); Chloride, Blood 98 mmol/L (98-108); Creatinine, Blood 0.72 mg/dL (0.40-1.00); Ethanol (Alcohol), Blood, Med <3 mg/dL; Globulin, Blood 4.8 g/dL (2.2-4.0); Glomerular Filtration Rate >60 (60-); Glucose, Blood 590 mg/dL (70-99); Potassium, Blood 5.5 mmol/L (3.5-5.5); Sodium, Blood 127 mmol/L (136-145); Total Protein, Blood 8.9 g/dL (6.4-8.2)
[2019-10-25 14:34] LABS: Anion Gap 25 mmol/L (6-16); CO2, Blood 4 mmol/L (21-32)
--- NOTE | 2019-10-25 19:09 | NUR ---
PT ARRIVED TO ICU ROOM 2 AT 1700 WITH INSULIN INFUSION WITH ONLY 1 SMALL IV LINE. TEETEE NICHOLSON AT BEDSIDE TO PLACE PICC LINE. PICC PLACEMENT WAS DIFFICULT AND TOOK RN APPOX [address] RN IS LETHARGIC, OPENS EYES SPONTANOUSLY AND IS ORIENTED TO SELF. ONCE PICC WAS IN PLACE, WAS ABLE TO BEGIN INFUSION OF IV MED ORDERS. MEHTA CATH IN PLACE DRAINING CLEAR/YELLOW URINE. PT DID HAVE ONE SMALL EPISODE OF COFFEE GROUND EMESIS. MONITOR SHOWS PT TO BE IN SINUS TACH, RESP TACHYPNIC ON ROOM AIR, OTHER VITALS HAVE BEEN STABLE.
--- NOTE | 2019-10-25 19:10 | NUR ---
ASSUME CARES: REPORT RECIEVED FROM ESTEPHANIE OFF GOING RN. MONITOR INTACT SHOWING SINUS TACH HEART RATE 100'S-110'S. OPENS EYES TO VERBAL STIMULI HOWEVER DOES NOT RESPOND VERBALLY AND CLOSES EYES. LUNG SOUNDS CLEAR RESPIRATIONS SHALLOW, RAPID. RATE 24-30'S. SPO2 100% ON ROOM AIR. ABDOMEN SOFT TENDER GRIMACES WITH PALPITATIONS MEHTA PATENT DRAINING LOUISE URINE.OCC TWITCHING OF EXTREMITIES. CONTINUE TO MONITOR AND REPORT CHANGE IN PATIENT CONDITION BOWEL SOUNDS PRESENT FOUR QUADS.
[2019-10-25 19:35] LABS: Blood Urea Nitrogen 20 mg/dL (8-24); Calcium, Blood 7.8 mg/dL (8.5-10.1); Chloride, Blood 111 mmol/L (98-108); Creatinine, Blood 0.77 mg/dL (0.40-1.00); Glomerular Filtration Rate >60 (60-); Glucose, Blood 358 mg/dL (70-99); Potassium, Blood 4.1 mmol/L (3.5-5.5)
[2019-10-25 19:58] LABS: Anion Gap 22 mmol/L (6-16); CO2, Blood 4 mmol/L (21-32); Sodium, Blood 137 mmol/L (136-145)
--- NOTE | 2019-10-25 20:33 | NUR ---
SPOKE WITH ONESIMO ALMANZA GLUCOSE RESULTS AND CO2 LAB RESULTS ORDERS NOTED FOR CHANGE IN FLUIDS. CONTINUE TO MONITOR AND REPORT CHANGE IN PATIENT CONDITION
[2019-10-25 21:39] LABS: Base Excess Venous -18.2 mmol/L; PCO2 Venous 23.8 mmHg (38-42); PO2 Venous 41.3 mmHg (38-42); pH Blood Venous 7.21 (7.34-7.37)
[2019-10-25 22:15] LABS: Anion Gap 15 mmol/L (6-16); Blood Urea Nitrogen 17 mg/dL (8-24); Bun/Creatinine Ratio 28.2 (12.0-20.0); CO2, Blood 13 mmol/L (21-32); Calcium, Blood 7.2 mg/dL (8.5-10.1); Chloride, Blood 113 mmol/L (98-108); Glomerular Filtration Rate >60 (60-); Glucose, Blood 250 mg/dL (70-99); Potassium, Blood 3.7 mmol/L (3.5-5.5); Sodium, Blood 141 mmol/L (136-145)
--- NOTE | 2019-10-26 02:50 | NUR ---
SPOLE WITH ONESIMO LARSEN REGUARDING VBG AND LAB RESULTS ORDERS NOTED CONTINUE TO MONITOR AND REPORT CHANGE IN PATIENT CONDITION
[2019-10-26 04:25] LABS: BASOPHILS ABSOLUTE AUTO 0.03 K/mm3 (0.00-0.23); BASOPHILS PERCENT AUTO 0 % (0-2); EOSINOPHILS PERCENT AUTO 0 % (0-6); Hematocrit 32.7 % (33.0-51.0); Hemoglobin 10.8 g/dL (11.5-16.0); IMMATURE GRAN ABSOLUTE AUTO 0.06 K/mm3 (0.00-0.10); IMMATURE GRAN PERCENT AUTO 0 % (0-1); LYMPHOCYTES ABSOLUTE AUTO 2.32 K/mm3 (0.84-5.20); LYMPHOCYTES PERCENT AUTO 14 % (21-46); MONOCYTES ABSOLUTE AUTO 1.32 K/mm3 (0.16-1.47); MONOCYTES PERCENT AUTO 8 % (4-13); Mean Platelet Volume 10.7 fL (9.1-12.4); NEUTROPHILS ABSOLUTE AUTO 12.45 K/mm3 (1.96-9.15); NEUTROPHILS PERCENT AUTO 77 % (41-73); Platelet Count 335 K/mm3 (150-400); RDW Coefficient Variation 13.4 % (11.7-14.2); RDW Standard Deviation 39.4 fL (35.1-46.3); White Blood Cell Count 16.18 K/mm3 (4.00-11.30)
[2019-10-26 04:39] LABS: Mean Corpuscular Volume 82 fL (80-100)
[2019-10-26 04:53] LABS: Alanine Aminotransfer (ALT/SGP 17 U/L (12-78); Albumin/Globulin Ratio 0.9 (0.8-1.8); Alk Phos 85 U/L (50-136); Anion Gap 7 mmol/L (6-16); Aspartate Aminotrans (AST/SGOT 8 U/L (12-37); Bilirubin, Total 0.3 mg/dL (0.1-1.0); Blood Urea Nitrogen 16 mg/dL (8-24); Bun/Creatinine Ratio 30.4 (12.0-20.0); CO2, Blood 20 mmol/L (21-32); Chloride, Blood 114 mmol/L (98-108); Creatinine, Blood 0.53 mg/dL (0.40-1.00); Globulin, Blood 3.4 g/dL (2.2-4.0); Glomerular Filtration Rate >60 (60-); Glucose, Blood 259 mg/dL (70-99); Potassium, Blood 3.4 mmol/L (3.5-5.5); Sodium, Blood 141 mmol/L (136-145)
[2019-10-26 04:55] LABS: Total Protein, Blood 6.4 g/dL (6.4-8.2)
--- NOTE | 2019-10-26 06:18 | NUR ---
SHIFT SUMMARY: RESTS QUIETLY WHEN UNDISTURBED. MONITOR INTACT SHOWING SINUS RHYTHM-SINUS TACH. HEART RATE 90'S-100'S. OPENS EYES TO VERBAL STIMULI HOWEVER IS NOT CONVERSENT. RETURNS TO SLEEP OR AT LEAST CLOSES EYES AND DOES NOT RESPOND TO RN OR MAKE CONTACT.LUNGS REMAIN CLEAR RESPIRATIONS SHALLOW SPO2 95-100% ABDOMEN SOFT WITH BOWEL SOUNDS FOUR QUADS. MEHTA PATENT DRAINING LOUISE URINE. GREAT AND SECOND TOES AMPUTATED SITES WELL HEALED. MOVES SELF IN BED TO POSITIONS OF COMFORT. SCABS TO LEGS AND FACE. CONTINUE TO MONITOR AND REPORT CHANGE IN PATIENT CONDITION
--- NOTE | 2019-10-26 07:30 | NUR ---
ASSUMED CARE BEDSIDE REPORT RECIEVED. PT LAYING IN BED RESTING QUIETLY. PT AROUSES TO VERBAL STIMULI. PT IS SOMNOLENT. FOLLOWS DIRECTIONS APPROPRIATELY. PT DENIES PAIN OR DISCOMFORT. PICC TO MJ C/D/I. INSULIN GTT INFUSING AT 6 UNITS/HR AND D5 1/2 NS INFUSING AT 200 ML/HR. VITAL SIGNS STABLE. PT ON ROOM AIR. MEHTA IN PLACE WITH CLOUDY YELLOW OUTPUT NOTED. PT WITH MULTIPLE SCABS AND ABRASIONS SCATTERED THROUGHOUT. WILL CONTINUE TO MONITOR.
[2019-10-26 09:24] LABS: Alanine Aminotransfer (ALT/SGP 15 U/L (12-78); Albumin, Blood 2.8 g/dL (3.4-5.0); Albumin/Globulin Ratio 0.9 (0.8-1.8); Alk Phos 83 U/L (50-136); Anion Gap 8 mmol/L (6-16); Aspartate Aminotrans (AST/SGOT 6 U/L (12-37); Bilirubin, Total 0.3 mg/dL (0.1-1.0); Blood Urea Nitrogen 16 mg/dL (8-24); Bun/Creatinine Ratio 31.4 (12.0-20.0); CO2, Blood 19 mmol/L (21-32); Calcium, Blood 7.2 mg/dL (8.5-10.1); Chloride, Blood 114 mmol/L (98-108); Creatinine, Blood 0.51 mg/dL (0.40-1.00); Globulin, Blood 3.1 g/dL (2.2-4.0); Glomerular Filtration Rate >60 (60-); Glucose, Blood 178 mg/dL (70-99); Magnesium, Blood 2.4 mg/dL (1.6-2.4); Potassium, Blood 2.9 mmol/L (3.5-5.5); Sodium, Blood 141 mmol/L (136-145); Total Protein, Blood 5.9 g/dL (6.4-8.2)
[2019-10-26 09:31] LABS: Phosphorus, Blood 0.5 mg/dL (2.5-4.9)
--- NOTE | 2019-10-26 12:19 | NUR ---
UPDATE DR CASTREJON HERE TO SEE PT. PT TOLERATING PO FOODS AND FLUIDS WELL. PT DENIES NAUSEA. VITAL SIGNS STABLE. ORDERS FOR STATUS CHANGE TO MEDICAL WITH NO TELE.
--- NOTE | 2019-10-26 14:14 | NUR ---
TRANSFER TO MEDICAL REPORT CALLED VIA PHONE AND ALL QUESTIONS ANSWERED. PT TAKEN TO ROOM 328 VIA WHEELCHAIR WITH COMMUNITY HEALTH NAVIGATOR. ALL PT BELONGINGS AND MEDS TAKEN WITH PT.
--- NOTE | 2019-10-26 14:18 | NUR ---
PT TRANSFERED PT TRANSFERED FROM ICU. PT ORIENTED TO ROOM. CALL LIGHT IN REACH. DIET SEIRRA MIST PROVIDED. PT STATES SHE "JUST WANTS TO REST" PT PROVIDED WITH WARM BLANKET & DOOR CLOSED SO SHE CAN SLEEP. WILL CONTINUE TO MONITOR
--- NOTE | 2019-10-26 16:59 | NUR ---
SHIFT SUMMARY PT STATES SHE IS VERY TIRED AND REQUESTING TO REST. DOOR SHUT FOR A QUIETER ENVIRONMENT. THIS RN AGREES WITH PREVIOUS RN'S ASSESSMENT. PT DENIES PAIN OR DISCOMFORT AT THIS TIME. POTASSIUM PHOS INFUSED. FOLLOW UP LAB PENDING. MEHTA INTACT & DRAINING. NO ACUTE CHANGES IN ASSESSMENT AT THIS TIME. VSS. WILL CONTINUE TO MONITOR UNTIL TURNOVER IS COMPLETE.
[2019-10-26 17:02] LABS: Anion Gap 8 mmol/L (6-16); Blood Urea Nitrogen 11 mg/dL (8-24); Bun/Creatinine Ratio 20.3 (12.0-20.0); CO2, Blood 21 mmol/L (21-32); Calcium, Blood 7.4 mg/dL (8.5-10.1); Chloride, Blood 109 mmol/L (98-108); Creatinine, Blood 0.54 mg/dL (0.40-1.00); Glomerular Filtration Rate >60 (60-); Glucose, Blood 248 mg/dL (70-99); Magnesium, Blood 2.2 mg/dL (1.6-2.4); Phosphorus, Blood 1.9 mg/dL (2.5-4.9); Potassium, Blood 3.5 mmol/L (3.5-5.5); Sodium, Blood 138 mmol/L (136-145)
--- NOTE | 2019-10-27 04:31 | NUR ---
SHIFT SUMMARY: VSS. TEMP 99.1. AAOX3. COMMUNICATES NEEDS. REMAINED IN BED ALL NIGHT. F/C PATENT AND DRAINING CLEAR STRAW COLORED URINE. IV ABT INFUSED ORDERED. PT TOOK PRN TRAZODONE AT HS. HAS SLEPT SOME TONIGHT. NO REPORTS OF ABD PAIN, NAUSEA, OR VOMITING. CBG 342 AT HS- INSULIN ADMINISTERED PER EMAR. NO ACUTE CHANGES TONIGHT. WILL CONT TO MONITOR.
[2019-10-27 07:09] LABS: CHLAMYDIA BY NAA Negative (Negative); GONOCOCCUS BY NAA Negative (Negative); TRICH VAG BY NAA Positive (Negative)
[2019-10-27 14:12] LABS: Anion Gap 7 mmol/L (6-16); Blood Urea Nitrogen 9 mg/dL (8-24); Bun/Creatinine Ratio 19.1 (12.0-20.0); CO2, Blood 24 mmol/L (21-32); Calcium, Blood 8.2 mg/dL (8.5-10.1); Chloride, Blood 109 mmol/L (98-108); Creatinine, Blood 0.47 mg/dL (0.40-1.00); Glomerular Filtration Rate >60 (60-); Glucose, Blood 125 mg/dL (70-99); Phosphorus, Blood 1.4 mg/dL (2.5-4.9); Potassium, Blood 3.3 mmol/L (3.5-5.5); Sodium, Blood 140 mmol/L (136-145)
--- NOTE | 2019-10-27 17:06 | NUR ---
SHIFT SUMMARY- PT IS A/O, SHE IS HAVING BOUTS OF NAUSEA WITH NO VOMITING. SHE WENT FOR A CT SCAN THIS AFTERNOON. SHE IS RECIEVING ANTINAUSEA MEDICATIONS. SHE HAS SLEPT FOR MUCH OF THIS SHIFT. REMOVED MEHTA PER ORDERS. PT AMBULATED TO THE RESTROOM FOR A BM THIS MORNING. HER APPETITE IS POOR. SHE IS EMOTIONALLY LABILE.
--- NOTE | 2019-10-28 05:08 | NUR ---
SHIFT SUMMARY: VSS. AFEB. AAOX3. COMMUNICATES NEEDS. UP AMBULATING IN ROOM W/SBA. GAIT IS STEADY AND WELL PACED. PT STATES SHE IS FEELING A LOT BETTER TONIGHT. NAUSEA IS RESOLVED AT THIS TIME. ABD SOFT, TENDER ACROSS UPPER QUADRANTS W/PALPATION. MOOD IS PLEASANT AND COOPERATIVE. CBG 298 AT HS, SS INSULIN ADMINISTERED PER ORDERS. NO ACUTE CHANGES OVERNIGHT. WILL CONT TO MONITOR.
[2019-10-28 06:26] LABS: BASOPHILS ABSOLUTE AUTO 0.02 K/mm3 (0.00-0.23); BASOPHILS PERCENT AUTO 0 % (0-2); EOSINOPHILS ABSOLUTE AUTO 0.02 K/mm3 (0.00-0.68); EOSINOPHILS PERCENT AUTO 0 % (0-6); Hematocrit 30.2 % (33.0-51.0); IMMATURE GRAN ABSOLUTE AUTO 0.01 K/mm3 (0.00-0.10); IMMATURE GRAN PERCENT AUTO 0 % (0-1); LYMPHOCYTES ABSOLUTE AUTO 3.17 K/mm3 (0.84-5.20); LYMPHOCYTES PERCENT AUTO 51 % (21-46); MONOCYTES ABSOLUTE AUTO 0.55 K/mm3 (0.16-1.47); MONOCYTES PERCENT AUTO 9 % (4-13); Mean Corpuscular HGB 27.2 pg (26.0-34.0); Mean Corpuscular HGB Conc 33.1 g/dL (31.5-36.5); Mean Corpuscular Volume 82 fL (80-100); NEUTROPHILS ABSOLUTE AUTO 2.47 K/mm3 (1.96-9.15); NEUTROPHILS PERCENT AUTO 40 % (41-73); Platelet Count 234 K/mm3 (150-400); RDW Coefficient Variation 14.7 % (11.7-14.2); RDW Standard Deviation 43.7 fL (35.1-46.3); Red Blood Cell Count 3.67 M/mm3 (3.80-5.20); White Blood Cell Count 6.24 K/mm3 (4.00-11.30)
[2019-10-28 06:46] LABS: Anion Gap 9 mmol/L (6-16); Blood Urea Nitrogen 6 mg/dL (8-24); Bun/Creatinine Ratio 12.4 (12.0-20.0); CO2, Blood 25 mmol/L (21-32); Calcium, Blood 7.8 mg/dL (8.5-10.1); Chloride, Blood 109 mmol/L (98-108); Creatinine, Blood 0.49 mg/dL (0.40-1.00); Glomerular Filtration Rate >60 (60-); Glucose, Blood 215 mg/dL (70-99); Potassium, Blood 3.1 mmol/L (3.5-5.5); Sodium, Blood 143 mmol/L (136-145)
[2019-10-28 12:02] LABS: Glucose, Blood 531 mg/dL (70-99)
[2019-10-28] MEDS ORDERED: POTCHL20ER PO (16:02)
[2019-10-28] MEDS ORDERED: METR500 PO (16:02)
--- NOTE | 2019-10-28 16:59 | NUR ---
PT DISCHARGED FROM THE UNIT. LEFT VIA WHEELCHAIR, FRIEND WILL DRIVE HER HOME. IV REMOVED. PICC REMOVED BY HEALTH CARE LIAISON. DISCHARGE INSTRUCTIONS REVIEWED. MEDICATIONS FAXED TO [facility]. NO QUESTIONS AT THIS TIME
== END 2019-10-28 16:18 | disposition home or self-care (01) | DRG 871 ==
LOC: ER 12:00 → ICUE 16:12 → ICUW 16:12 → MEDS 16:12 → ICUE 17:00 → MEDS 10-26 14:08
PROVIDERS: Emergency Medicine; Internal Medicine; Nurse Practitioner Acute Care; ADMIT Internal Medicine
DX: A41.9 Sepsis, unspecified organism (principal); E10.10 Type 1 diabetes mellitus with ketoacidosis without coma; G92 Toxic encephalopathy; A59.01 Trichomonal vulvovaginitis; F41.9 Anxiety disorder, unspecified; F32.9 Major depressive disorder, single episode, unspecified; N73.9 Female pelvic inflammatory disease, unspecified; K21.9 Gastro-esophageal reflux disease without esophagitis; Z79.4 Long term (current) use of insulin
CPT/HCPCS: 36569; 51702; 71045; 74176; 80048; 80053; 81001; 81025; 82010; 82550; 82800; 82803; 82947; 83605; 83735; 84100; 84443; 84484; 85018; 85025; 87086; 87491; 87591; 87661; 93005; 93010; 96361-59; 96374-59; 96375-59; 99285-25; A9270-GY; C1751; C1769; C1894; C9113; G0480; J0456; J1200; J1630; J1650; J1815; J2060; J2405; J2765; J3475; J7030; J7042; J7050; J7060; J7070; U0002

== ENCOUNTER 2019-11-06 09:44 | Inpatient (IN) | payer OTHER ==
[~2019-11-06] VITALS: Ht 172.7 cm; Wt 60.3 kg
[~2019-11-06 09:44] MED LIST changes: +BASAGLAR K100 UNIT/2 SC; +BENADRYL25 MG PO; +GABA300 PO; +HYDPAM50 PO; +Humalog100 UNIT/3 SC; +METR500 PO; +PANT20 PO; +PRAZOSIN HCL1 M2 PO; +TRAZ100 PO
[2019-11-06 11:22] LABS: BASOPHILS ABSOLUTE AUTO 0.11 K/mm3 (0.00-0.23); BASOPHILS PERCENT AUTO 1 % (0-2); EOSINOPHILS PERCENT AUTO 0 % (0-6); Hematocrit 40.4 % (33.0-51.0); Hemoglobin 12.5 g/dL (11.5-16.0); IMMATURE GRAN ABSOLUTE AUTO 0.12 K/mm3 (0.00-0.10); IMMATURE GRAN PERCENT AUTO 1 % (0-1); LYMPHOCYTES PERCENT AUTO 11 % (21-46); MONOCYTES ABSOLUTE AUTO 1.09 K/mm3 (0.16-1.47); MONOCYTES PERCENT AUTO 5 % (4-13); Mean Corpuscular HGB 27.4 pg (26.0-34.0); Mean Corpuscular HGB Conc 30.9 g/dL (31.5-36.5); NEUTROPHILS ABSOLUTE AUTO 16.63 K/mm3 (1.96-9.15); NEUTROPHILS PERCENT AUTO 83 % (41-73); Platelet Count 512 K/mm3 (150-400); RDW Coefficient Variation 13.9 % (11.7-14.2); RDW Standard Deviation 44.3 fL (35.1-46.3); Red Blood Cell Count 4.56 M/mm3 (3.80-5.20); White Blood Cell Count 20.15 K/mm3 (4.00-11.30)
[2019-11-06 11:29] LABS: Mean Corpuscular Volume 89 fL (80-100)
[2019-11-06 12:01] LABS: Alanine Aminotransfer (ALT/SGP 23 U/L (12-78); Albumin, Blood 3.4 g/dL (3.4-5.0); Albumin/Globulin Ratio 0.8 (0.8-1.8); Alk Phos 124 U/L (50-136); Anion Gap 24 mmol/L (6-16); Aspartate Aminotrans (AST/SGOT 14 U/L (12-37); Bilirubin, Total 0.4 mg/dL (0.1-1.0); Blood Urea Nitrogen 27 mg/dL (8-24); Bun/Creatinine Ratio 36.6 (12.0-20.0); CO2, Blood 6 mmol/L (21-32); Calcium, Blood 8.2 mg/dL (8.5-10.1); Chloride, Blood 97 mmol/L (98-108); Creatinine, Blood 0.74 mg/dL (0.40-1.00); Globulin, Blood 4.4 g/dL (2.2-4.0); Glomerular Filtration Rate >60 (60-); Glucose, Blood 555 mg/dL (70-99); Potassium, Blood 4.6 mmol/L (3.5-5.5); Sodium, Blood 127 mmol/L (136-145); Total Protein, Blood 7.8 g/dL (6.4-8.2)
[2019-11-06 12:22] LABS: Beta-hydroxybutyrate 123.6 mg/dL (0.2-2.8)
--- NOTE | 2019-11-06 13:37 | NUR ---
PT TO ICU AT 1315 FROM ER FOR DKA. PT ARRIVED LETHARGIC, ONCE TRANSFERED TO ICU BED PT AWOKE VOMITING; 100CC DARK EMESIS. INSULIN GTT AT 6UNITS/HR. BLOOD SUGAR 425. NS STARTED AT 150CC/HR. PT FELL QUICKLY BACK TO SLEEP ATYER VOMITING. PT UNABLE TO ANSWER MOST QUESTONS AT [place], DIFFICULT TO AROUSE, MUMBLES ANSWRS. BP SLIHTLY HTN, PT IN SINUS TACH W RATE 120-130'S0
[2019-11-06 15:13] LABS: Potassium, Blood 3.5 mmol/L (3.5-5.5)
--- NOTE | 2019-11-06 15:23 | NUR ---
PT HAS VOMITED 3 TIMES IN ICU; EMESIS DARK BROWN, APPROX 100CC EACH TIME. DR OH NOTIFIED. PROTONIX TO BE STARTED TODAY. PHERNERGAN ORDERED. CO2 OF [address] OH, LABS TO BE REPEATED IN TWO HRS.
[2019-11-06 16:14] LABS: Source, Urine Clean Catch
[2019-11-06 16:18] LABS: Bilirubin, Urine Neg (Neg); Blood, Urine 2+ (Neg); Glucose Qualitative, Urine 4+ (Neg); Ketones, Urine 4+ (Neg); Leukocyte Esterase, Urine Neg (Neg); Nitrite, Urine Neg (Neg); Protein, Urine 2+ (Neg); Specific Gravity, Urine 1.025 (1.003-1.022); Urobilinogen, Urine NORM (Normal)
[2019-11-06 16:20] LABS: Appearance, Urine Clear (Clear); Color, Urine Yellow (P-Yellow)
[2019-11-06 16:25] LABS: Bacteria Mod /hpf; Granular Casts 0-2 /lpf (0); Mucus Light (0-Heavy); Squamous Epithelial Cells Mod /hpf (Few); White Blood Cells, Urine 0-2 /hpf (0-5)
[2019-11-06 16:30] LABS: U Amphetamine Screen Not Detected
[2019-11-06 16:31] LABS: U Barbituate Screen Not Detected; U Benzodiazapine Screen Not Detected; U Buprenorphine Screen Not Detected; U Cannabinoids Screen Not Detected; U Cocaine Screen Not Detected; U Methadone Screen Not Detected; U Methamphetamine Screen Not Detected; U Opiates Screen Not Detected; U Oxycodone Screen Not Detected; U Phencyclidine Screen Not Detected; U Propoxyphene Screen Not Detected
[2019-11-06 17:44] LABS: Potassium, Blood 4.2 mmol/L (3.5-5.5)
--- NOTE | 2019-11-06 18:22 | NUR ---
IMPROVED CO2 OF [address] OH, ALONG WITH UPDATE. AT 1800 PT HAD SUDDEN ONSET OF NAUSEA WITH EMESIS; 150CC DARK BROWN. PHENERGAN GIVEN. FLUIDS CHANGED TO D5 1/2NS BS <200. INSULIN GTT AT 3UNITS. PT REMAINS SOMULENT, AROUSES OCCASSIONALLY, ASKS TO RINSE MOUTH OUT ETC.
--- NOTE | 2019-11-06 20:00 | NUR ---
PT RESTING IN BED. DROWSY. WILL GIVE SHORT ANSWERS TO QUESTIONS THEN FALLS BACK TO SLEEP. PT ABLE TO MOVE SELF AROUND IN BED. HAS BEEN NAUSEATED AND RECEIVED ZOFRAN. INSULIN GTT AND D5 1/2 NS RUNNING. PT CAN MAKE NEED KNOWN. NO SIGN OF DISTRESS AT THE MOMENT.
[2019-11-06 21:27] LABS: Potassium, Blood 4.3 mmol/L (3.5-5.5)
[2019-11-07 05:33] LABS: Potassium, Blood 3.6 mmol/L (3.5-5.5)
--- NOTE | 2019-11-07 06:38 | NUR ---
SUMMARY PT RESTING IN BED. DROWSY AND IMPULSIVE. WAKES EASILY TO VERBAL. WAS ON INSULIN GTT ALL NIGHT UNTIL THIS AM. AFTER AM CHEMISTRY WAS DONE, CALLED DR. DANIELSON AND GOT ORDERS TO STOP D5 1/2 NS AND INSULIN GTT. ALSO STARTED LANTUS AND FED PT A SNACK PER DR. DANIELSON. PT TOLERATED SNACK AND HAS BEEN SIPPING WATER. NO SIGN OF DISTRESS. NO OTHER CHANGES.
--- NOTE | 2019-11-07 07:15 | NUR ---
BEGINNING OF SHIFT Assumed care of pt at 0700. Bedside report received from Trupti KINGSLEY. Pt A&O x 4, but lethargic. Answers questions. Follows commands. Verbalizes needs. Pt on room air. SpO2 90% or greater. Lungs clear t/o. ST per monitor. BP stable. States not feeling nauseous at this time. Aware that s/o, Osman, would like for her to call him when she is feeling up to it.
--- NOTE | 2019-11-07 08:00 | NUR ---
DR OH IN TO SEE PT Provider states plan for pt's diet to be advanced as tolerated. Potential for discharge today if pt is able to eat.
--- NOTE | 2019-11-07 08:30 | NUR ---
PT DID NOT TOLERATE CLEAR LIQUIDS THIS MORNING After having items from clear liquid tray, pt began to report severe stomach discomfort and requested nausea meds. Pt dry heaving.
[2019-11-07 09:44] LABS: Potassium, Blood 3.7 mmol/L (3.5-5.5)
--- NOTE | 2019-11-07 10:46 | NUR ---
CALL PLACED TO DR OH Notified provider that pt did not tolerate clear liquid diet. Discussed 0900 lab results. Provider states plan for IV fluids and lab recheck this afternoon.
--- NOTE | 2019-11-07 12:17 | NUR ---
Case Conferenced with RN, , CM, and Rn Flight. Update on status and reports from mom shared with Rn Flight for possible visit. Discussed with , insulin pump/glucose monitoring as a possible intervention IF pt met criteria and was agreeable/compliant. nurse to check on UHA/insurance criteria that needs to be met for insulin pump. Awaiting psych consult and improved s/s to attempt visit with pt again.
--- NOTE | 2019-11-07 13:20 | NUR ---
CALL PLACED TO DR OH Notified provider that pt had blood sugar greater than 400 prior to lunch. Discussed that sliding scale insulin, upgraded from low to medium, was given and pt's blood sugar did not decrease. Orders given for one time dose of 10 units humalog. Will continue to reassess.
--- NOTE | 2019-11-07 14:00 | NUR ---
DR CHISHOLMUFF IN TO SEE PT Pt does not want to participate at this time. Provider states he will come back tomorrow.
--- NOTE | 2019-11-07 15:57 | NUR ---
UPDATE Pt ate majority of ADA lunch, tolerated well. Pt received a dose of zofran prior to lunch. Pt did not have vomiting. Blood sugar improved after one time dose of 10 units humalog. Care handoff to Sarah KINGSLEY.
[2019-11-07 16:19] LABS: Anion Gap 8 mmol/L (6-16); Blood Urea Nitrogen 14 mg/dL (8-24); Bun/Creatinine Ratio 21.1 (12.0-20.0); CO2, Blood 19 mmol/L (21-32); Calcium, Blood 8.2 mg/dL (8.5-10.1); Chloride, Blood 108 mmol/L (98-108); Creatinine, Blood 0.67 mg/dL (0.40-1.00); Glomerular Filtration Rate >60 (60-); Glucose, Blood 262 mg/dL (70-99); Potassium, Blood 3.6 mmol/L (3.5-5.5); Sodium, Blood 135 mmol/L (136-145)
--- NOTE | 2019-11-07 17:27 | NUR ---
ASSUMED CARE OF PT AT 1600. REPORT FROM GEORGINA KINGSLEY. PT ONE PERSON ASSIST TO BSC. USING CALL LIGHT APPROPRIATELY. DISCUSSED BMP c DR OH. WILL CONTINUE TO BE ICU STATUS AT THIS TIME. CONTINUE GARRY COVERAGE. INCREASE LANTUS TO 30 UNITS BID. TOLERATED DINNER WELL. VSS. WILL CONTINUE TO MONITOR UNTIL REPORT TO ONCOMING NURSE.
[2019-11-07 20:36] LABS: Anion Gap 4 mmol/L (6-16); Blood Urea Nitrogen 14 mg/dL (8-24); Bun/Creatinine Ratio 21.7 (12.0-20.0); CO2, Blood 23 mmol/L (21-32); Calcium, Blood 7.8 mg/dL (8.5-10.1); Chloride, Blood 110 mmol/L (98-108); Creatinine, Blood 0.65 mg/dL (0.40-1.00); Glomerular Filtration Rate >60 (60-); Glucose, Blood 308 mg/dL (70-99); Potassium, Blood 3.7 mmol/L (3.5-5.5); Sodium, Blood 137 mmol/L (136-145)
--- NOTE | 2019-11-07 22:00 | NUR ---
ASSUME CARE REPORT RECIEVED FROM ZOEY OFF GOING RN. MONITOR INTACT SHOWING SINUS TACH HEART RATE 100'S. REQUEST SNACK TOLERATED WELL. LUNG SOUNDS CLEAR RESPIRATION REGULAR AND EASY AT REST ON ROOM AIR. ABDOMEN SOFT NOTENDER WITH BOWEL SOUNDS FOUR QUADS. CONTINUE TO MONITOR AND REPORT CHANGE IN PATIENT CONDITION. GREAT TOE AND SECOND TOES AMPUTATED PARTIALLY BOTH FEET. CONTINUE TO MONITOR AND REPORT CHANGE IN PATIENT CONDITION
[2019-11-08 04:12] LABS: Hematocrit 28.6 % (33.0-51.0); Hemoglobin 9.4 g/dL (11.5-16.0); Mean Corpuscular HGB 27.2 pg (26.0-34.0); Mean Corpuscular HGB Conc 32.9 g/dL (31.5-36.5); Mean Platelet Volume 9.4 fL (9.1-12.4); Platelet Count 347 K/mm3 (150-400); RDW Coefficient Variation 14.4 % (11.7-14.2); RDW Standard Deviation 42.7 fL (35.1-46.3); Red Blood Cell Count 3.45 M/mm3 (3.80-5.20); White Blood Cell Count 12.34 K/mm3 (4.00-11.30)
[2019-11-08 04:15] LABS: Mean Corpuscular Volume 83 fL (80-100)
[2019-11-08 04:29] LABS: Anion Gap 4 mmol/L (6-16); Blood Urea Nitrogen 13 mg/dL (8-24); Bun/Creatinine Ratio 25.7 (12.0-20.0); CO2, Blood 24 mmol/L (21-32); Calcium, Blood 7.9 mg/dL (8.5-10.1); Chloride, Blood 109 mmol/L (98-108); Creatinine, Blood 0.51 mg/dL (0.40-1.00); Glomerular Filtration Rate >60 (60-); Glucose, Blood 319 mg/dL (70-99); Potassium, Blood 3.2 mmol/L (3.5-5.5); Sodium, Blood 137 mmol/L (136-145)
--- NOTE | 2019-11-08 07:02 | NUR ---
SHIFT SUMMARY : RESTS QUIETLY WHEN UNDISTURBED MONITOR INTACT SHOWING SINUS TADCH HEART RATE 100'S . LUNG SOUNDS CLEAR RESPIRATIONS REGULAR AND EASY ON ROOM AIR SPO2 96-100% ABDOMEN SOFT WITH BOWEL SOUNDS FOUR QUADS, VOIDS LOUISE URINE PER BSC WITH STANDBY ASSIST. MEDICATED FOR NAUSEA TIMES TWO THIS SHIFT. AMPUTATED GREAT TOE AND SECOND TOE BILATERLY. WELL HEALED. CONTINUE TO MONITOR AND REPORT CHANGE IN PATIENT CONDITION. TOLERATED HS SNACK WELL
--- NOTE | 2019-11-08 12:52 | NUR ---
REASSESSMENT PT HAS BEEN RESTING IN BED THROUGHOUT THE MORNING EXCEPT FOR GETTING UP TO VOID IN THE BSC. PT IS STILL A LITTLE UNSTEADY ON HER FEET, BUT GETTING STRONGER THE DAY PROGRESSES. BLOOD SUGARS HAVE BEEN IN THE 200S. PT IS EATING ALL OF HER MEALS. NO NAUSEA OR VOMITING. LUNGS CLEAR, RA. SR, BP STABLE, AFEBRILE. CONTINUING TO MONITOR.
--- NOTE | 2019-11-08 15:42 | NUR ---
Initial spiritual care note: Pt tells me that she has trouble managing her medications. She states she wants "someone else to do it" for her. She recently lost her residence when roommate evicted her. Jane does not remember what happend prior to passing out at home. Overall though, she beleives she is "doing ok." She does not appear to grasp the seriousness of the event that brought her here. In this way, she appears quite child-like. We have an easy rapport from her previous hospital stays. Mechanic Driver services will remain available.
--- NOTE | 2019-11-08 15:59 | NUR ---
DISCHARGE PT DISCHARGED TO HOME AT 1558. FOLLOW UP APPT MADE WITH PT'S PRIMARY FOR NEXT THURSDAY, PT AWARE. DISCHARGE INSTRUCTIONS REGARDING INSULIN, MEDICATIONS AND DIET GIVEN TO PT. IV'S REMOVED. ALL QUESTIONS ANSWERED. ALL BELONGINGS DC'D WITH PT.
== END 2019-11-08 16:00 | disposition home or self-care (01) | DRG 637 ==
LOC: ER 09:44 → ICUW 12:39 → ICUE 12:39 → ER 13:03 → ICUE 11-08 16:00
PROVIDERS: Emergency Medicine; ADMIT Internal Medicine
DX: E10.10 Type 1 diabetes mellitus with ketoacidosis without coma (principal); G92 Toxic encephalopathy; F33.9 Major depressive disorder, recurrent, unspecified; F41.9 Anxiety disorder, unspecified; F19.10 Other psychoactive substance abuse, uncomplicated; E10.42 Type 1 diabetes mellitus with diabetic polyneuropathy; I10 Essential (primary) hypertension; K21.9 Gastro-esophageal reflux disease without esophagitis; F17.210 Nicotine dependence, cigarettes, uncomplicated; Z91.14 Patient's other noncompliance with medication regimen; Z79.4 Long term (current) use of insulin; Z86.14 Personal history of Methicillin resistant Staphylococcus aureus infection; Z89.412 Acquired absence of left great toe; Z89.422 Acquired absence of other left toe(s)
CPT/HCPCS: 36415; 80048; 80051; 80053; 81001; 82010; 82800; 82947; 85025; 85027; 87081; 87086; 93005; 93010; 96361; 96374; 96376; 99285-25; A9270-GY; C1751; C9113; J1650; J1815; J2405; J2550; J7030; J7042

== ENCOUNTER 2020-02-12 23:43 | Inpatient (IN) | payer OTHER ==
[~2020-02-12] VITALS: Ht 172.7 cm; Wt 63.5 kg
[2020-02-13 00:53] LABS: BASOPHILS ABSOLUTE AUTO 0.06 K/mm3 (0.00-0.23); BASOPHILS PERCENT AUTO 0 % (0-2); EOSINOPHILS ABSOLUTE AUTO 0.14 K/mm3 (0.00-0.68); EOSINOPHILS PERCENT AUTO 1 % (0-6); Hematocrit 29.7 % (33.0-51.0); Hemoglobin 9.3 g/dL (11.5-16.0); IMMATURE GRAN ABSOLUTE AUTO 0.09 K/mm3 (0.00-0.10); IMMATURE GRAN PERCENT AUTO 1 % (0-1); LYMPHOCYTES ABSOLUTE AUTO 3.58 K/mm3 (0.84-5.20); LYMPHOCYTES PERCENT AUTO 18 % (21-46); MONOCYTES ABSOLUTE AUTO 1.28 K/mm3 (0.16-1.47); MONOCYTES PERCENT AUTO 7 % (4-13); Mean Corpuscular HGB 26.7 pg (26.0-34.0); Mean Corpuscular HGB Conc 31.3 g/dL (31.5-36.5); Mean Corpuscular Volume 85 fL (80-100); Mean Platelet Volume 9.4 fL (9.1-12.4); NEUTROPHILS ABSOLUTE AUTO 14.41 K/mm3 (1.96-9.15); NEUTROPHILS PERCENT AUTO 74 % (41-73); Platelet Count 780 K/mm3 (150-400); RDW Coefficient Variation 14.2 % (11.7-14.2); RDW Standard Deviation 44.5 fL (35.1-46.3); Red Blood Cell Count 3.48 M/mm3 (3.80-5.20); White Blood Cell Count 19.56 K/mm3 (4.00-11.30)
[2020-02-13 01:12] LABS: Alanine Aminotransfer (ALT/SGP 8 U/L (12-78); Albumin, Blood 2.5 g/dL (3.4-5.0); Albumin/Globulin Ratio 0.5 (0.8-1.8); Alk Phos 137 U/L (50-136); Anion Gap 3 mmol/L (6-16); Aspartate Aminotrans (AST/SGOT 10 U/L (12-37); Bilirubin, Total 0.2 mg/dL (0.1-1.0); Blood Urea Nitrogen 21 mg/dL (8-24); Bun/Creatinine Ratio 23.9 (12.0-20.0); CO2, Blood 33 mmol/L (21-32); Calcium, Blood 9.2 mg/dL (8.5-10.1); Chloride, Blood 103 mmol/L (98-108); Creatinine, Blood 0.88 mg/dL (0.40-1.00); Globulin, Blood 5.4 g/dL (2.2-4.0); Glomerular Filtration Rate >60 (60-); Glucose, Blood 144 mg/dL (70-99); Potassium, Blood 4.4 mmol/L (3.5-5.5); Sodium, Blood 139 mmol/L (136-145); Total Protein, Blood 7.9 g/dL (6.4-8.2)
[2020-02-13] MEDS ORDERED: BENADRYL25 MG PO (03:42)
[2020-02-13 20:56] LABS: U Barbituate Screen Not Detected; U Benzodiazapine Screen Not Detected; U Buprenorphine Screen Not Detected; U Cannabinoids Screen Not Detected; U Cocaine Screen Not Detected; U Methadone Screen Not Detected; U Opiates Screen Not Detected; U Oxycodone Screen Not Detected; U Phencyclidine Screen Not Detected; U Propoxyphene Screen Not Detected
[2020-02-13 20:58] LABS: U Amphetamine Screen Not Detected; U Methamphetamine Screen DETECTED
[2020-02-14 05:47] LABS: BASOPHILS ABSOLUTE AUTO 0.05 K/mm3 (0.00-0.23); BASOPHILS PERCENT AUTO 0 % (0-2); EOSINOPHILS PERCENT AUTO 1 % (0-6); Hematocrit 26.3 % (33.0-51.0); Hemoglobin 8.5 g/dL (11.5-16.0); IMMATURE GRAN ABSOLUTE AUTO 0.07 K/mm3 (0.00-0.10); IMMATURE GRAN PERCENT AUTO 0 % (0-1); LYMPHOCYTES ABSOLUTE AUTO 2.72 K/mm3 (0.84-5.20); LYMPHOCYTES PERCENT AUTO 17 % (21-46); MONOCYTES ABSOLUTE AUTO 1.02 K/mm3 (0.16-1.47); MONOCYTES PERCENT AUTO 6 % (4-13); Mean Corpuscular HGB 27.6 pg (26.0-34.0); Mean Corpuscular HGB Conc 32.3 g/dL (31.5-36.5); Mean Corpuscular Volume 85 fL (80-100); Mean Platelet Volume 9.8 fL (9.1-12.4); NEUTROPHILS ABSOLUTE AUTO 12.46 K/mm3 (1.96-9.15); NEUTROPHILS PERCENT AUTO 76 % (41-73); Platelet Count 702 K/mm3 (150-400); RDW Coefficient Variation 15.3 % (11.7-14.2); RDW Standard Deviation 46.9 fL (35.1-46.3); Red Blood Cell Count 3.08 M/mm3 (3.80-5.20); White Blood Cell Count 16.42 K/mm3 (4.00-11.30)
[2020-02-14 09:15] LABS: Anion Gap 2 mmol/L (6-16); Blood Urea Nitrogen 16 mg/dL (8-24); Bun/Creatinine Ratio 24.7 (12.0-20.0); CO2, Blood 31 mmol/L (21-32); Calcium, Blood 9.3 mg/dL (8.5-10.1); Chloride, Blood 99 mmol/L (98-108); Creatinine, Blood 0.65 mg/dL (0.40-1.00); Glomerular Filtration Rate >60 (60-); Glucose, Blood 53 mg/dL (70-99); Potassium, Blood 5.3 mmol/L (3.5-5.5); Sodium, Blood 132 mmol/L (136-145)
[2020-02-14 15:28] LABS: Vancomycin, Trough 8.7 ug/mL (5.0-10.0)
[2020-02-15 06:37] LABS: BASOPHILS ABSOLUTE AUTO 0.05 K/mm3 (0.00-0.23); BASOPHILS PERCENT AUTO 1 % (0-2); EOSINOPHILS ABSOLUTE AUTO 0.08 K/mm3 (0.00-0.68); EOSINOPHILS PERCENT AUTO 1 % (0-6); Hematocrit 28.1 % (33.0-51.0); Hemoglobin 8.8 g/dL (11.5-16.0); IMMATURE GRAN ABSOLUTE AUTO 0.07 K/mm3 (0.00-0.10); IMMATURE GRAN PERCENT AUTO 1 % (0-1); LYMPHOCYTES PERCENT AUTO 33 % (21-46); MONOCYTES PERCENT AUTO 8 % (4-13); Mean Corpuscular HGB 26.7 pg (26.0-34.0); Mean Corpuscular HGB Conc 31.3 g/dL (31.5-36.5); Mean Corpuscular Volume 85 fL (80-100); Mean Platelet Volume 11.3 fL (9.1-12.4); NEUTROPHILS ABSOLUTE AUTO 5.84 K/mm3 (1.96-9.15); NEUTROPHILS PERCENT AUTO 57 % (41-73); Platelet Count 646 K/mm3 (150-400); RDW Coefficient Variation 16.4 % (11.7-14.2); RDW Standard Deviation 50.7 fL (35.1-46.3); White Blood Cell Count 10.24 K/mm3 (4.00-11.30)
[2020-02-15 07:11] LABS: Anion Gap 5 mmol/L (6-16); Blood Urea Nitrogen 18 mg/dL (8-24); Bun/Creatinine Ratio 28.2 (12.0-20.0); CO2, Blood 28 mmol/L (21-32); Calcium, Blood 9.1 mg/dL (8.5-10.1); Chloride, Blood 99 mmol/L (98-108); Creatinine, Blood 0.64 mg/dL (0.40-1.00); Glomerular Filtration Rate >60 (60-); Glucose, Blood 79 mg/dL (70-99); Potassium, Blood 4.1 mmol/L (3.5-5.5); Sodium, Blood 132 mmol/L (136-145)
[2020-02-15 21:12] LABS: U Amphetamine Screen DETECTED; U Barbituate Screen Not Detected; U Benzodiazapine Screen Not Detected; U Buprenorphine Screen Not Detected; U Cannabinoids Screen DETECTED; U Cocaine Screen Not Detected; U Methadone Screen Not Detected; U Methamphetamine Screen DETECTED; U Opiates Screen DETECTED; U Oxycodone Screen Not Detected; U Phencyclidine Screen Not Detected; U Propoxyphene Screen Not Detected
[2020-02-16 05:03] LABS: BASOPHILS ABSOLUTE AUTO 0.03 K/mm3 (0.00-0.23); BASOPHILS PERCENT AUTO 0 % (0-2); EOSINOPHILS PERCENT AUTO 0 % (0-6); Hematocrit 26.8 % (33.0-51.0); Hemoglobin 8.2 g/dL (11.5-16.0); IMMATURE GRAN ABSOLUTE AUTO 0.09 K/mm3 (0.00-0.10); IMMATURE GRAN PERCENT AUTO 1 % (0-1); LYMPHOCYTES ABSOLUTE AUTO 2.55 K/mm3 (0.84-5.20); LYMPHOCYTES PERCENT AUTO 22 % (21-46); MONOCYTES ABSOLUTE AUTO 0.77 K/mm3 (0.16-1.47); MONOCYTES PERCENT AUTO 7 % (4-13); Mean Corpuscular HGB Conc 30.6 g/dL (31.5-36.5); Mean Corpuscular Volume 85 fL (80-100); Mean Platelet Volume 9.5 fL (9.1-12.4); NEUTROPHILS ABSOLUTE AUTO 8.13 K/mm3 (1.96-9.15); NEUTROPHILS PERCENT AUTO 70 % (41-73); Platelet Count 870 K/mm3 (150-400); RDW Coefficient Variation 15.4 % (11.7-14.2); RDW Standard Deviation 47.8 fL (35.1-46.3); Red Blood Cell Count 3.15 M/mm3 (3.80-5.20); White Blood Cell Count 11.57 K/mm3 (4.00-11.30)
[2020-02-16 08:19] LABS: Anion Gap 7 mmol/L (6-16); Blood Urea Nitrogen 23 mg/dL (8-24); Bun/Creatinine Ratio 36.7 (12.0-20.0); CO2, Blood 27 mmol/L (21-32); Calcium, Blood 8.8 mg/dL (8.5-10.1); Chloride, Blood 96 mmol/L (98-108); Creatinine, Blood 0.63 mg/dL (0.40-1.00); Glomerular Filtration Rate >60 (60-); Glucose, Blood 643 mg/dL (70-99); Potassium, Blood 4.8 mmol/L (3.5-5.5); Sodium, Blood 130 mmol/L (136-145)
[2020-02-16 12:06] LABS: Glucose, Blood 638 mg/dL (70-99)
[2020-02-17 05:02] LABS: BASOPHILS ABSOLUTE AUTO 0.05 K/mm3 (0.00-0.23); BASOPHILS PERCENT AUTO 1 % (0-2); EOSINOPHILS ABSOLUTE AUTO 0.08 K/mm3 (0.00-0.68); EOSINOPHILS PERCENT AUTO 1 % (0-6); Hematocrit 24.8 % (33.0-51.0); Hemoglobin 7.6 g/dL (11.5-16.0); IMMATURE GRAN ABSOLUTE AUTO 0.08 K/mm3 (0.00-0.10); IMMATURE GRAN PERCENT AUTO 1 % (0-1); LYMPHOCYTES ABSOLUTE AUTO 3.65 K/mm3 (0.84-5.20); LYMPHOCYTES PERCENT AUTO 43 % (21-46); MONOCYTES ABSOLUTE AUTO 0.85 K/mm3 (0.16-1.47); MONOCYTES PERCENT AUTO 10 % (4-13); Mean Corpuscular HGB 26.5 pg (26.0-34.0); Mean Corpuscular HGB Conc 30.6 g/dL (31.5-36.5); Mean Corpuscular Volume 86 fL (80-100); Mean Platelet Volume 9.3 fL (9.1-12.4); NEUTROPHILS ABSOLUTE AUTO 3.79 K/mm3 (1.96-9.15); NEUTROPHILS PERCENT AUTO 45 % (41-73); Platelet Count 774 K/mm3 (150-400); RDW Coefficient Variation 14.9 % (11.7-14.2); RDW Standard Deviation 47.8 fL (35.1-46.3); Red Blood Cell Count 2.87 M/mm3 (3.80-5.20)
[2020-02-17 05:23] LABS: Anion Gap 4 mmol/L (6-16); Blood Urea Nitrogen 30 mg/dL (8-24); Bun/Creatinine Ratio 46.1 (12.0-20.0); CO2, Blood 31 mmol/L (21-32); Calcium, Blood 8.9 mg/dL (8.5-10.1); Chloride, Blood 101 mmol/L (98-108); Creatinine, Blood 0.65 mg/dL (0.40-1.00); Glomerular Filtration Rate >60 (60-); Glucose, Blood 184 mg/dL (70-99); Potassium, Blood 4.4 mmol/L (3.5-5.5); Sodium, Blood 136 mmol/L (136-145)
[2020-02-17 16:05] LABS: Vancomycin, Trough 22.8 ug/mL (5.0-10.0)
[2020-02-17] MEDS ORDERED: TRAZ100 PO (23:41)
[2020-02-19 09:23] LABS: Vancomycin, Trough 8.8 ug/mL (5.0-10.0)
[2020-02-19] MEDS ORDERED: BASAGLAR K100 UNIT/1 SC (10:15)
[2020-02-19] MEDS ORDERED: HUMALOG KW100 UNIT/1 SC (10:19)
[2020-02-19] MEDS ORDERED: FERSU300 PO (10:20)
[2020-02-19] MEDS ORDERED: GABA300 PO (10:20)
[2020-02-19] MEDS ORDERED: ATEN25 PO (10:20)
[2020-02-19] MEDS ORDERED: LISI5 PO (10:21)
[2020-02-19] MEDS ORDERED: SUMA25 PO (10:22)
[2020-02-19] MEDS ORDERED: LACT PO (10:26)
[2020-02-19] MEDS ORDERED: SULTRIDS PO (10:27)
== END 2020-02-19 12:42 | disposition home or self-care (01) | DRG 854 ==
LOC: ER 23:43 → MEDS 02-13 01:39 → ER 02-13 02:45 → MEDS 02-13 03:04 → ENPENDDIS 02-19 09:21 → MEDS 02-19 12:42
PROVIDERS: Emergency Medicine; Family Medicine; Pharmacist; Podiatrist; ADMIT Internal Medicine
PROC: 0KBW0ZZ Excision of Left Foot Muscle, Open Approach (ICD-10-PCS; principal; 2020-02-15 13:00)
DX: A41.02 Sepsis due to Methicillin resistant Staphylococcus aureus (principal); I96 Gangrene, not elsewhere classified; L02.612 Cutaneous abscess of left foot; L03.116 Cellulitis of left lower limb; E10.52 Type 1 diabetes mellitus with diabetic peripheral angiopathy with gangrene; D47.3 Essential (hemorrhagic) thrombocythemia; D63.8 Anemia in other chronic diseases classified elsewhere; Z20.828 Contact with and (suspected) exposure to other viral communicable diseases; E10.42 Type 1 diabetes mellitus with diabetic polyneuropathy; E10.621 Type 1 diabetes mellitus with foot ulcer; F17.210 Nicotine dependence, cigarettes, uncomplicated; F32.9 Major depressive disorder, single episode, unspecified; F41.9 Anxiety disorder, unspecified; G40.909 Epilepsy, unspecified, not intractable, without status epilepticus; J45.909 Unspecified asthma, uncomplicated; Z89.429 Acquired absence of other toe(s), unspecified side; B95.5 Unspecified streptococcus as the cause of diseases classified elsewhere; B96.1 Klebsiella pneumoniae [K. pneumoniae] as the cause of diseases classified elsewhere; E10.649 Type 1 diabetes mellitus with hypoglycemia without coma; F15.10 Other stimulant abuse, uncomplicated; I10 Essential (primary) hypertension; Z87.891 Personal history of nicotine dependence; Z59.0 Homelessness; G43.909 Migraine, unspecified, not intractable, without status migrainosus
CPT/HCPCS: 36415; 73620; 80048; 80053; 80202; 82947; 83605; 85025; 85651; 87040; 87070; 87071; 87075; 87076; 87077; 87147; 87186; 87205; 93005; 93010; 96374; 99285-25; A9270-GY; J1100; J1170; J1650; J2250; J2405; J2543; J2704; J3010; J3370; J7030; J7042; J7120; Q0163; U0002

== ENCOUNTER 2020-02-28 23:00 | Inpatient (IN) | payer OTHER ==
[~2020-02-28] VITALS: Ht 172.7 cm; Wt 63.7 kg
[~2020-02-28 23:00] MED LIST changes: +ATEN25 PO; +BASAGLAR K100 UNIT/1 SC; +FERSU300 PO; +HUMALOG KW100 UNIT/1 SC; +LACT PO; +SULTRIDS PO
[2020-02-28 23:41] LABS: Base Excess Venous -0.1 mmol/L; Bicarbonate Venous 24.6 mmol/L (24.0-30.0); PCO2 Venous 32.7 mmHg (38-42); PO2 Venous 154 mmHg (38-42); pH Blood Venous 7.47 (7.34-7.37)
[2020-02-28 23:45] LABS: BASOPHILS ABSOLUTE AUTO 0.06 K/mm3 (0.00-0.23); BASOPHILS PERCENT AUTO 0 % (0-2); EOSINOPHILS ABSOLUTE AUTO 0.01 K/mm3 (0.00-0.68); EOSINOPHILS PERCENT AUTO 0 % (0-6); Hematocrit 29.6 % (33.0-51.0); Hemoglobin 9.4 g/dL (11.5-16.0); IMMATURE GRAN PERCENT AUTO 1 % (0-1); LYMPHOCYTES ABSOLUTE AUTO 1.81 K/mm3 (0.84-5.20); LYMPHOCYTES PERCENT AUTO 10 % (21-46); MONOCYTES ABSOLUTE AUTO 1.25 K/mm3 (0.16-1.47); MONOCYTES PERCENT AUTO 7 % (4-13); Mean Corpuscular HGB 26.9 pg (26.0-34.0); Mean Corpuscular HGB Conc 31.8 g/dL (31.5-36.5); Mean Corpuscular Volume 85 fL (80-100); Mean Platelet Volume 9.9 fL (9.1-12.4); NEUTROPHILS ABSOLUTE AUTO 15.57 K/mm3 (1.96-9.15); NEUTROPHILS PERCENT AUTO 83 % (41-73); Platelet Count 520 K/mm3 (150-400); RDW Coefficient Variation 16.2 % (11.7-14.2); RDW Standard Deviation 50.6 fL (35.1-46.3)
[2020-02-29 00:11] LABS: Alanine Aminotransfer (ALT/SGP 10 U/L (12-78); Albumin, Blood 2.9 g/dL (3.4-5.0); Albumin/Globulin Ratio 0.6 (0.8-1.8); Alk Phos 154 U/L (50-136); Anion Gap 6 mmol/L (6-16); Aspartate Aminotrans (AST/SGOT 8 U/L (12-37); Beta-hydroxybutyrate 1.4 mg/dL (0.2-2.8); Bilirubin, Total 0.3 mg/dL (0.1-1.0); Blood Urea Nitrogen 17 mg/dL (8-24); CO2, Blood 25 mmol/L (21-32); Calcium, Blood 8.9 mg/dL (8.5-10.1); Chloride, Blood 96 mmol/L (98-108); Creatinine, Blood 0.68 mg/dL (0.40-1.00); Globulin, Blood 5.2 g/dL (2.2-4.0); Glomerular Filtration Rate >60 (60-); Glucose, Blood 378 mg/dL (70-99); Potassium, Blood 4.5 mmol/L (3.5-5.5); Sodium, Blood 127 mmol/L (136-145); Total Protein, Blood 8.1 g/dL (6.4-8.2)
[2020-02-29 06:14] LABS: BASOPHILS ABSOLUTE AUTO 0.03 K/mm3 (0.00-0.23); BASOPHILS PERCENT AUTO 0 % (0-2); EOSINOPHILS ABSOLUTE AUTO 0.04 K/mm3 (0.00-0.68); EOSINOPHILS PERCENT AUTO 0 % (0-6); Hematocrit 25.4 % (33.0-51.0); Hemoglobin 7.9 g/dL (11.5-16.0); IMMATURE GRAN ABSOLUTE AUTO 0.06 K/mm3 (0.00-0.10); IMMATURE GRAN PERCENT AUTO 1 % (0-1); LYMPHOCYTES ABSOLUTE AUTO 1.94 K/mm3 (0.84-5.20); LYMPHOCYTES PERCENT AUTO 16 % (21-46); MONOCYTES ABSOLUTE AUTO 1.05 K/mm3 (0.16-1.47); MONOCYTES PERCENT AUTO 9 % (4-13); Mean Corpuscular HGB 26.9 pg (26.0-34.0); Mean Corpuscular HGB Conc 31.1 g/dL (31.5-36.5); Mean Corpuscular Volume 86 fL (80-100); NEUTROPHILS ABSOLUTE AUTO 9.17 K/mm3 (1.96-9.15); NEUTROPHILS PERCENT AUTO 75 % (41-73); Platelet Count 406 K/mm3 (150-400); RDW Coefficient Variation 16.2 % (11.7-14.2); Red Blood Cell Count 2.94 M/mm3 (3.80-5.20); White Blood Cell Count 12.29 K/mm3 (4.00-11.30)
[2020-02-29 06:35] LABS: Anion Gap 6 mmol/L (6-16); Blood Urea Nitrogen 18 mg/dL (8-24); Bun/Creatinine Ratio 25.1 (12.0-20.0); CO2, Blood 23 mmol/L (21-32); Calcium, Blood 7.8 mg/dL (8.5-10.1); Chloride, Blood 105 mmol/L (98-108); Creatinine, Blood 0.72 mg/dL (0.40-1.00); Glomerular Filtration Rate >60 (60-); Glucose, Blood 296 mg/dL (70-99); Potassium, Blood 4.2 mmol/L (3.5-5.5); Sodium, Blood 134 mmol/L (136-145)
[2020-03-02 21:08] LABS: Vancomycin, Trough 12.7 ug/mL (5.0-10.0)
[2020-03-04 08:54] LABS: Creatinine, Blood 0.54 mg/dL (0.40-1.00); Vancomycin, Trough 14.8 ug/mL (5.0-10.0)
[2020-03-05 14:50] LABS: U Amphetamine Screen DETECTED; U Barbituate Screen Not Detected; U Benzodiazapine Screen Not Detected; U Buprenorphine Screen Not Detected; U Cannabinoids Screen DETECTED; U Cocaine Screen Not Detected; U Methadone Screen Not Detected; U Methamphetamine Screen DETECTED; U Opiates Screen DETECTED; U Oxycodone Screen DETECTED; U Phencyclidine Screen Not Detected; U Propoxyphene Screen Not Detected
[2020-03-06] MEDS ORDERED: SULTRIDS PO (10:44)
[2020-03-06] MEDS ORDERED: OXAYDO5 MG PO (10:44)
== END 2020-03-06 22:30 | disposition home or self-care (01) | DRG 855 ==
LOC: ER 23:00 → PCU 23:01 → ICUE 23:01 → SURS 02-29 17:14 → ICUE 02-29 17:18 → SURS 02-29 17:42
PROVIDERS: Family Medicine; Pharmacist; Physician Assistant; Podiatrist; ADMIT Family Medicine
PROC: 0J9Q0ZZ Drainage of Right Foot Subcutaneous Tissue and Fascia, Open Approach (ICD-10-PCS; principal; 2020-02-29 19:15)
DX: A41.02 Sepsis due to Methicillin resistant Staphylococcus aureus (principal); Z89.422 Acquired absence of other left toe(s); R65.20 Severe sepsis without septic shock; Z89.412 Acquired absence of left great toe; G40.909 Epilepsy, unspecified, not intractable, without status epilepticus; F17.210 Nicotine dependence, cigarettes, uncomplicated; D69.6 Thrombocytopenia, unspecified; L97.512 Non-pressure chronic ulcer of other part of right foot with fat layer exposed; E10.40 Type 1 diabetes mellitus with diabetic neuropathy, unspecified; E10.621 Type 1 diabetes mellitus with foot ulcer; G43.909 Migraine, unspecified, not intractable, without status migrainosus
CPT/HCPCS: 36415; 73630; 80048; 80053; 80202; 82010; 82565; 82803; 82947; 83605; 85025; 87040; 87071; 87075; 87077; 87147; 87186; 87205; 93005; 93010; 96365; 96366; 96372; 96375; 96376; 99284-25; A9270; A9270-GY; C1751; G0008; G0378; J1650; J1956; J2250; J2270; J2405; J2704; J2765; J3010; J3370; J7030; J7050; Q0163; Q2038; U0003

== ENCOUNTER 2020-03-26 15:53 | Observation (INO) | payer OTHER ==
[~2020-03-26] VITALS: Ht 172.7 cm; Wt 59.7 kg
[~2020-03-26 15:53] MED LIST changes: +OXAYDO5 MG PO
[2020-03-26 16:21] LABS: Source, Urine Clean Catch
[2020-03-26 16:27] LABS: BASOPHILS ABSOLUTE AUTO 0.05 K/mm3 (0.00-0.23); BASOPHILS PERCENT AUTO 1 % (0-2); EOSINOPHILS PERCENT AUTO 0 % (0-6); Hematocrit 40.4 % (33.0-51.0); Hemoglobin 12.3 g/dL (11.5-16.0); IMMATURE GRAN ABSOLUTE AUTO 0.04 K/mm3 (0.00-0.10); IMMATURE GRAN PERCENT AUTO 1 % (0-1); LYMPHOCYTES ABSOLUTE AUTO 2.19 K/mm3 (0.84-5.20); LYMPHOCYTES PERCENT AUTO 27 % (21-46); MONOCYTES ABSOLUTE AUTO 0.37 K/mm3 (0.16-1.47); MONOCYTES PERCENT AUTO 5 % (4-13); Mean Corpuscular HGB 26.4 pg (26.0-34.0); Mean Corpuscular HGB Conc 30.4 g/dL (31.5-36.5); Mean Corpuscular Volume 87 fL (80-100); Mean Platelet Volume 10.4 fL (9.1-12.4); NEUTROPHILS ABSOLUTE AUTO 5.56 K/mm3 (1.96-9.15); NEUTROPHILS PERCENT AUTO 68 % (41-73); Platelet Count 447 K/mm3 (150-400); RDW Coefficient Variation 15.9 % (11.7-14.2); RDW Standard Deviation 50.2 fL (35.1-46.3); Red Blood Cell Count 4.66 M/mm3 (3.80-5.20); White Blood Cell Count 8.21 K/mm3 (4.00-11.30)
[2020-03-26 16:31] LABS: Appearance, Urine Clear (Clear); Bilirubin, Urine Neg (Neg); Blood, Urine Neg (Neg); Color, Urine Yellow (P-Yellow); Glucose Qualitative, Urine 4+ (Neg); Ketones, Urine 4+ (Neg); Leukocyte Esterase, Urine Neg (Neg); Nitrite, Urine Neg (Neg); Protein, Urine Neg (Neg); Specific Gravity, Urine 1.015 (1.003-1.022); Urobilinogen, Urine NORM (Normal)
[2020-03-26 16:38] LABS: Base Excess Venous -17.3 mmol/L; PCO2 Venous 35.5 mmHg (38-42); PO2 Venous 48.1 mmHg (38-42); pH Blood Venous 7.13 (7.34-7.37)
[2020-03-26 16:48] LABS: U Amphetamine Screen Not Detected; U Barbituate Screen Not Detected; U Benzodiazapine Screen Not Detected; U Buprenorphine Screen Not Detected; U Cannabinoids Screen Not Detected; U Cocaine Screen Not Detected; U Methadone Screen Not Detected; U Methamphetamine Screen Not Detected; U Opiates Screen Not Detected; U Oxycodone Screen Not Detected; U Phencyclidine Screen Not Detected; U Propoxyphene Screen Not Detected
[2020-03-26 17:17] LABS: Alanine Aminotransfer (ALT/SGP 28 U/L (12-78); Albumin, Blood 3.6 g/dL (3.4-5.0); Albumin/Globulin Ratio 0.7 (0.8-1.8); Alk Phos 174 U/L (50-136); Anion Gap 21 mmol/L (6-16); Aspartate Aminotrans (AST/SGOT 10 U/L (12-37); Beta-hydroxybutyrate 72.9 mg/dL (0.2-2.8); Bilirubin, Total 0.3 mg/dL (0.1-1.0); Blood Urea Nitrogen 20 mg/dL (8-24); Bun/Creatinine Ratio 29.6 (12.0-20.0); CO2, Blood 13 mmol/L (21-32); Calcium, Blood 8.6 mg/dL (8.5-10.1); Chloride, Blood 90 mmol/L (98-108); Creatinine, Blood 0.68 mg/dL (0.40-1.00); Glomerular Filtration Rate >60 (60-); Glucose, Blood 728 mg/dL (70-99); Potassium, Blood 4.6 mmol/L (3.5-5.5); Sodium, Blood 124 mmol/L (136-145); Total Protein, Blood 8.6 g/dL (6.4-8.2)
[2020-03-26 20:42] LABS: Glucose, Blood 631 mg/dL (70-99)
--- NOTE | 2020-03-26 21:45 | NUR ---
ASSUMED CARERECEIVED REPORT FROM DEBORA KINGSLEY IN ER. PT TO BED 14 TRANSPORT VIA GURNEY. PT APPROPRIATE AND RESPONSIVE ON ARRIVAL. INSULIN GTT INFUSING @ 4 UNITS/ HOUR. PT TRANSFERRED TO ICU BED. STATES SHE HAS PAIN 8/10 IN FEET. NOTED MULTIPLE ULCERS TO BILATERAL FEET, WELL AMUPTATED TOES TO RIGHT LOWER EXTREMITY. PT STATES WOUNDS HAVE BEEN THERE OVER A MONTH AND SHE IS SEEING HOME HEALTH NURSE FOR CARE. PLEASE SEE WOUND PICS. PT. ABLE TO REPOSITION HERSELF SPONTANEOUSLY AND NEEDS SOME ASSISTANCE WITH TRANSFER TO COMMODE. ORIENTED PT TO ROOM AND CALL LIGHT.
[2020-03-26] MEDS ORDERED: BENADRYL25 MG PO (22:12)
[2020-03-26] MEDS ORDERED: SULTRIDS PO (22:15)
[2020-03-26] MEDS ORDERED: PANT20 PO (22:16)
[2020-03-26] MEDS ORDERED: INDO50 PO (22:17)
[2020-03-26] MEDS ORDERED: BUSP10 PO (22:17)
[2020-03-26] MEDS ORDERED: ACET500 PO (22:19)
--- NOTE | 2020-03-27 00:54 | NUR ---
PT GLUCOSE AT 223. CHANGED ivf TO D5.45@ 100 OREDERED
--- NOTE | 2020-03-27 03:22 | NUR ---
CLEANED WOUNDS TO FEET WITH WOUND SHEET METAL PATTERN CUTTER. APPLIED CALCIUM ALGONATE BETWEEN TOES ON RIGHT AND LEFT FOOT. APPLIED NONSTICK DRSG AND WRAPPED WITH 2 IN GUAZE.
[2020-03-27 04:17] LABS: BASOPHILS ABSOLUTE AUTO 0.04 K/mm3 (0.00-0.23); BASOPHILS PERCENT AUTO 1 % (0-2); EOSINOPHILS ABSOLUTE AUTO 0.07 K/mm3 (0.00-0.68); EOSINOPHILS PERCENT AUTO 1 % (0-6); Hematocrit 35.8 % (33.0-51.0); Hemoglobin 11.7 g/dL (11.5-16.0); IMMATURE GRAN ABSOLUTE AUTO 0.01 K/mm3 (0.00-0.10); IMMATURE GRAN PERCENT AUTO 0 % (0-1); LYMPHOCYTES ABSOLUTE AUTO 3.16 K/mm3 (0.84-5.20); LYMPHOCYTES PERCENT AUTO 47 % (21-46); MONOCYTES ABSOLUTE AUTO 0.69 K/mm3 (0.16-1.47); MONOCYTES PERCENT AUTO 10 % (4-13); Mean Corpuscular HGB 27.1 pg (26.0-34.0); Mean Corpuscular HGB Conc 32.7 g/dL (31.5-36.5); Mean Corpuscular Volume 83 fL (80-100); Mean Platelet Volume 10.4 fL (9.1-12.4); NEUTROPHILS ABSOLUTE AUTO 2.76 K/mm3 (1.96-9.15); NEUTROPHILS PERCENT AUTO 41 % (41-73); Platelet Count 383 K/mm3 (150-400); RDW Coefficient Variation 15.3 % (11.7-14.2); RDW Standard Deviation 46.8 fL (35.1-46.3); Red Blood Cell Count 4.32 M/mm3 (3.80-5.20); White Blood Cell Count 6.73 K/mm3 (4.00-11.30)
[2020-03-27 04:42] LABS: Alanine Aminotransfer (ALT/SGP 23 U/L (12-78); Albumin, Blood 3.1 g/dL (3.4-5.0); Albumin/Globulin Ratio 0.7 (0.8-1.8); Alk Phos 139 U/L (50-136); Anion Gap 7 mmol/L (6-16); Aspartate Aminotrans (AST/SGOT 11 U/L (12-37); Bilirubin, Total 0.3 mg/dL (0.1-1.0); Blood Urea Nitrogen 16 mg/dL (8-24); Bun/Creatinine Ratio 29.9 (12.0-20.0); CO2, Blood 22 mmol/L (21-32); Calcium, Blood 8.4 mg/dL (8.5-10.1); Chloride, Blood 106 mmol/L (98-108); Creatinine, Blood 0.54 mg/dL (0.40-1.00); Globulin, Blood 4.6 g/dL (2.2-4.0); Glomerular Filtration Rate >60 (60-); Glucose, Blood 150 mg/dL (70-99); Potassium, Blood 3.7 mmol/L (3.5-5.5); Total Protein, Blood 7.7 g/dL (6.4-8.2)
[2020-03-27 05:23] LABS: Sodium, Blood 135 mmol/L (136-145)
--- NOTE | 2020-03-27 05:28 | NUR ---
SHIFT SUMMARY PT ALERT AND ORIENTATED. ABLE TO GO TO BSC WITH 1 PERSON ASSIST. INSULIN AT 1 UNIT/HR. D5.45 INFUSING AT 100/HR. GLUCOSE STEADY IN 150'S. PT STATES SHE FEELS HUNGRY AND WANTS TO EAT THIS MORNING. DENIES NAUSEA. STATES PAIN TO BILATERAL FEET FROM ULCERS. PT MEDICATED ORDERED WITH FENTANYL WHEN AVAILABLE. PT DOES STATE RELIEF WITH FENTANYL.
--- NOTE | 2020-03-27 10:18 | NUR ---
AT START OF SHIFT PT HAVING SOME PAIN BUT MANNAGABLE IN FEET WITH ICE BAGS APPLIED. PT CBG NOTED AND DR SEGOVIA IN TO CHANGED IVF AND SWITCH TO NS AND THEN D/C INSULIN THAT HAS ONLY BEEN RUNNING AT 1 UNNIT/HR FOR LAST 4-5 HOURS. FEET DSG ARE INTACT FROM [facility] AND DR GOODWIN CALL PER CELL PHONE AND HE INDICATED HE WOULD BE IN TO ASSESS PT LATER TODAY.
--- NOTE | 2020-03-27 10:37 | NUR ---
1000,,, PT WAS TALKING ON THE PHONE AND PAIN INC TO 10/10 LEVEL AND VERY FOCUSED IN L BUTTOCKS AND FEET.
--- NOTE | 2020-03-27 12:43 | NUR ---
1130 DR GOODWIN IN AND ASSESSED PT FEET SITUATION. NO SURGERY RECOMMMENDED AT THIS TIME. JUST DSG CHANGES AND ABX. PT CURRENTLY REFUSING TO HAVE FEET REDSGED DUE TO PAIN ISSUES AND MEDS NOT AVALIBLE FOR 2 HOURS AT LEAST. PT REMAINS COOP. WILL CALL REPORT CASIMIRO.
--- NOTE | 2020-03-27 13:02 | NUR ---
REPORT CALLED TO LORENZO KINGSLEY AND PT WILL BE TRANSFERED VIA CHAIR TO 335. PT HAS BEEN SLEEPING POST LUNCH AND VS WHERE STABLE AT NOON TIME.
--- NOTE | 2020-03-27 14:57 | NUR ---
PT ARRIVED TO FLOOR 1400. AOX4 AND COOPERATIVE OF CARE. PT RESTING IN BED AT THIS TIME. PT TREATED FOR PAIN PER EMAR. PT REQUESTING FOOT BE REBANDAGED AFTER NEXT DOSE OF FENTYNAL GIVEN. PT PLEASANT AT THIS TIME AND TALKING IRONWORKER LIGHT WITHIN REACH.
--- NOTE | 2020-03-27 17:54 | NUR ---
PT AOX4 AND COOPERATIVE OF CARE. PT TREATED FOR PAIN PER EMAR. PT RESTING IN BED AT THIS TIME. PT REQUESTED FEET TO REMAIN UNBANDAGED FOR A BIT. WOUNDS LOOK TO BE HEALING WELL. PT HAS BEEN REQUESTING SNACKS AND SEEMS TO BE A BIT EMOTIONAL OFF AND ON. CALL LIGHT WITHIN REACH WILL CONTINUE TO MONITOR.
--- NOTE | 2020-03-28 01:47 | NUR ---
PATIENT REPORTS ANXIETY AND FEET PAIN. HOSPITALIST DR PENALOZA ORDERED ATIVAN 0.5 MG X ONE AND PERCOCET 5/325 MG 1-2 TABS Q6 PRN.
--- NOTE | 2020-03-28 01:58 | NUR ---
PATIENT HAVING INCREASE BILATERAL FOOT PAIN AND ANXIETY. PATIENT INDEPENDENT IN ROOM AT SHIFT CHANGE WITHOUT PAIN AND PERFORMED SELF BED BATH AND HEAD CLEANED. PULLED PIV AND REPLACED. PATIENT REPORTS SHE WAS POKED MULTIPLE TIMES FOR AN IV START BEING A HARD TO START IV ON HER. PIV START SITES PAINFUL AT THIS TIME WITH FOOT ULCERS PAINFUL.
--- NOTE | 2020-03-28 03:20 | NUR ---
SHIFT SUMMARY PATIENT HAD INCREASED BILATERAL FEET PAIN AND ANXIETY DURING THE SHIFT. PATIENT REPORTED TOLERABLE PAIN AND NO ANXIETY AT START OF SHIFT AND PERFORM SELF BEDBATH. PATIENT HAD PULLED HER IV AND HAD MULTIPLE UNSUCCESSFUL PIV STARTS AND INCREASED ARM PAIN. REPORTED SHE IS A HARD PIV START. IV FENTANYL 50 MCG GIVEN PER EMAR WITH MINIMAL RELIEF. HOSPITALIST DR PENALOZA ORDERED PO ATIVAN 0.5 MG X ONE FOR ANXIETY/SLEEP AND ADDED PERCOCET 5/325 1-2 TABS Q6 FOR PAIN. PATIENT ABLE TO GET SLEEP AFTER PAIN MANAGED AND ANXIETY REDUCED. CALL LIGHT IN REACH. BED IN LOWEST POSITION. WILL CONTINUE TO MONITOR UNTIL DAY SHIFT NURSE ASSUMES CARE.
[2020-03-28 06:39] LABS: Albumin, Blood 2.8 g/dL (3.4-5.0); Anion Gap 7 mmol/L (6-16); Blood Urea Nitrogen 20 mg/dL (8-24); CO2, Blood 25 mmol/L (21-32); Calcium, Blood 8.9 mg/dL (8.5-10.1); Chloride, Blood 108 mmol/L (98-108); Creatinine, Blood 0.67 mg/dL (0.40-1.00); Glomerular Filtration Rate >60 (60-); Glucose, Blood 177 mg/dL (70-99); Magnesium, Blood 1.8 mg/dL (1.6-2.4); Phosphorus, Blood 2.5 mg/dL (2.5-4.9); Potassium, Blood 3.8 mmol/L (3.5-5.5); Sodium, Blood 140 mmol/L (136-145)
[2020-03-28] MEDS ORDERED: Percocet 5-3251 EACH PO (13:51)
--- NOTE | 2020-03-28 14:13 | NUR ---
DISCHARGE NOTE- PT WAS GIVEN HARD COPY SCRIPT FOR OXY AT THE TIME OF DISCHARGE VERBAL AND WRITTEN DISCHARGE INSTRUCTIONS WERE PROVIDED AND PT ACKNOWLEDGED UNDERSTANDING OF THEM. PT CHANGED HER WOUND DRESSINGS HERSELF, STAFF OFFERED BUT SHE STATED SHE DOES IT ALL THE TIME HERSELF AND SHE KNOWS WHAT HURTS AND WHAT DOESNT. PT WAS ESCORTED OUT VIA IV DC'D PRIOR TO DISCHARGE. NO QUESTIONS AT THE TIME OF DISCHARGE.
== END 2020-03-28 14:12 | disposition home health service (06) ==
LOC: ER 15:53 → ICUW 15:54 → MEDS 15:54 → ICUW 15:54 → ER 19:20 → ICUW 19:20 → MEDS 03-27 13:46
PROVIDERS: Emergency Medicine; Internal Medicine; ADMIT Internal Medicine
DX: E10.10 Type 1 diabetes mellitus with ketoacidosis without coma (principal); L02.611 Cutaneous abscess of right foot; E10.69 Type 1 diabetes mellitus with other specified complication; M86.8X9 Other osteomyelitis, unspecified sites; E10.49 Type 1 diabetes mellitus with other diabetic neurological complication; E10.621 Type 1 diabetes mellitus with foot ulcer; L97.529 Non-pressure chronic ulcer of other part of left foot with unspecified severity; E10.40 Type 1 diabetes mellitus with diabetic neuropathy, unspecified; J45.909 Unspecified asthma, uncomplicated; F17.210 Nicotine dependence, cigarettes, uncomplicated; G40.909 Epilepsy, unspecified, not intractable, without status epilepticus; D64.9 Anemia, unspecified; F32.9 Major depressive disorder, single episode, unspecified; F41.9 Anxiety disorder, unspecified; R19.7 Diarrhea, unspecified; Z23 Encounter for immunization; Z51.5 Encounter for palliative care; Z89.439 Acquired absence of unspecified foot; Z90.710 Acquired absence of both cervix and uterus; Z88.1 Allergy status to other antibiotic agents; Z88.5 Allergy status to narcotic agent; Z90.49 Acquired absence of other specified parts of digestive tract; Z79.4 Long term (current) use of insulin; Z79.2 Long term (current) use of antibiotics; Z79.899 Other long term (current) drug therapy
CPT/HCPCS: 36415; 71045; 73630; 74177; 80053; 80069; 81003; 81025; 82010; 82803; 82947; 83605; 83690; 83735; 84484; 85025; 85651; 86141; 87040; 93005; 93010; 96361; 96372; 96374-59; 96375; 96376; 99285-25; A9270; A9270-GY; C9113; G0378; J1650; J1815; J2405; J2765; J3010; J7030; J7042; Q9967; U0003

== ENCOUNTER 2020-04-10 01:39 | Inpatient (IN) | payer OTHER ==
[~2020-04-10] VITALS: Ht 172.7 cm; Wt 65.7 kg
[~2020-04-10 01:39] MED LIST changes: +ACET500 PO; +BUSP10 PO; +INDO50 PO
[2020-04-10 04:30] LABS: BASOPHILS ABSOLUTE AUTO 0.03 K/mm3 (0.00-0.23); BASOPHILS PERCENT AUTO 0 % (0-2); EOSINOPHILS ABSOLUTE AUTO 0.05 K/mm3 (0.00-0.68); EOSINOPHILS PERCENT AUTO 1 % (0-6); Hemoglobin 8.7 g/dL (11.5-16.0); IMMATURE GRAN ABSOLUTE AUTO 0.01 K/mm3 (0.00-0.10); IMMATURE GRAN PERCENT AUTO 0 % (0-1); LYMPHOCYTES ABSOLUTE AUTO 2.68 K/mm3 (0.84-5.20); LYMPHOCYTES PERCENT AUTO 31 % (21-46); MONOCYTES PERCENT AUTO 12 % (4-13); Mean Corpuscular HGB 27.3 pg (26.0-34.0); Mean Corpuscular HGB Conc 32.2 g/dL (31.5-36.5); Mean Corpuscular Volume 85 fL (80-100); Mean Platelet Volume 9.5 fL (9.1-12.4); NEUTROPHILS ABSOLUTE AUTO 4.81 K/mm3 (1.96-9.15); NEUTROPHILS PERCENT AUTO 56 % (41-73); Platelet Count 420 K/mm3 (150-400); RDW Coefficient Variation 16.2 % (11.7-14.2); RDW Standard Deviation 50.3 fL (35.1-46.3); Red Blood Cell Count 3.19 M/mm3 (3.80-5.20); White Blood Cell Count 8.58 K/mm3 (4.00-11.30)
[2020-04-10 04:42] LABS: Alanine Aminotransfer (ALT/SGP 21 U/L (12-78); Albumin/Globulin Ratio 0.7 (0.8-1.8); Alk Phos 160 U/L (50-136); Anion Gap 3 mmol/L (6-16); Aspartate Aminotrans (AST/SGOT 8 U/L (12-37); Bilirubin, Total 0.1 mg/dL (0.1-1.0); Blood Urea Nitrogen 20 mg/dL (8-24); Bun/Creatinine Ratio 32.9 (12.0-20.0); CO2, Blood 29 mmol/L (21-32); Calcium, Blood 9.1 mg/dL (8.5-10.1); Chloride, Blood 107 mmol/L (98-108); Creatinine, Blood 0.61 mg/dL (0.40-1.00); Globulin, Blood 4.3 g/dL (2.2-4.0); Glomerular Filtration Rate >60 (60-); Glucose, Blood 58 mg/dL (70-99); Potassium, Blood 3.9 mmol/L (3.5-5.5); Sodium, Blood 139 mmol/L (136-145); Total Protein, Blood 7.3 g/dL (6.4-8.2)
--- NOTE | 2020-04-10 05:19 | NUR ---
Transfer report from [facility] on PT referred by Podiatry DR Perez. PT has hx of MRSA infections 02/29/20 HX of Cdiff colitis ESBL. Current infection given clindamycin & vanco in ER. HAve contact isolation for draining wounds. PT with hx of meth abuse addition reported last use 2 days ago. HX of tobacco addiction & homelessness. Await admission to medical floor to tx for cellulitis abscess.
--- NOTE | 2020-04-10 07:55 | NUR ---
PT admitted with MRSA cellulitis infection luci jerome. She was medicated for 8/10 pain with 50 mcg fent with helpful effect. PT with director of spa and guest experience Radha & she said she felt like she had low BG. BG checked & was 39. PT NPO but she also had 22 g IV in fusing antibiotics in hand. director of spa and guest experience looked for tx orders for hypoglycemia PT did not have so she gave PT applejuice & sugars. Contacted MD HARRISON & he said to recheck BG which was 88. Wound care & photodoc orders obtained & photos taken. DR Perez in to see PT this AM & updated on need for oral intake clear liquids due to hypoglycemia & he is planning surgery today.
--- NOTE | 2020-04-10 16:59 | NUR ---
TRANSPORTED FOR SURGERY AT 1600
--- NOTE | 2020-04-10 18:38 | NUR ---
REPORT RECIEVED FROM ANA PHILIPPE OP.
--- NOTE | 2020-04-10 19:02 | NUR ---
ARRIVED FROM OR. DRESSING CDI. VSS. WAKES TO VERBAL STIMULI. NO C/O PAIN. NO NAUSEA. UNASYN GIVEN. BED ALARM ON.
--- NOTE | 2020-04-10 21:20 | NUR ---
PT was NPO for surgery back from OR at shift change. Postop VS stable but no diet ordered. Called PROFESSIONAL ATHLETES COACH Henry GREGG & request diet order. ADAT to [facility]. Last BG reported 113. Day RN changed IVF to NS for antibiotic administration. PT had LR from OR. BG as taken by ENTERPRISE RESOURCE ANALYST & reported as 30. Roused PT & she is eating & drinking yogurt ensure applesauce. Will recheck blood glucose in a few minutes. Bilat LE surgical sites clean dry intact. Bilat postop shoes applied by this RN. Continue to assess recheck BG encourage diat as tolerated. No recent insulin given. PT has very poor IV access very difficult start per report of PT & staff, has no D50 IV orders for hypoglycemia, no longer NPO. PT says on last hospitalization he has 28 IV attempts including powerglide.
--- NOTE | 2020-04-10 23:25 | NUR ---
LILLI GREGG UPDATED ON HYPOGLYCEMIA WHILE NPO 7 BLOOD GLUCOSE RECHECKS UP TO 244 FROM 30. PT RECEIVING SEVERAL ANTIBIOTICS IN LT HAND IV. D50 ORDER RECIEVED 1/2 TO FULL AMP FOR HYPOGLYCEMIA IF PT UNABLE TO TAKE ORAL.
--- NOTE | 2020-04-11 06:48 | NUR ---
PT had surgery on bilat feet due to infected draining wounds. DR Penaloza took to OR & I & D lt foot wound & RT foot amputations. Post op shoes applied x 2.
[2020-04-11 16:40] LABS: Vancomycin, Trough 9.7 ug/mL (5.0-10.0)
--- NOTE | 2020-04-11 16:49 | NUR ---
SHIFT SUMMARY- PT A/OX4. PT MEDICATED T/O THE DAY FOR PAIN. PT SITTING CURLED UP IN BED CRYING IN PAIN THIS AM, PRN FENTANYL AND PERCOCET GIVEN. PT VERY ANXIOUS THIS AM, PRN ATIVAN GIVEN AND WAS EFFECTIVE. LS CLEAR, ON RA. DR GOODWIN IN AND CHANGED DRESSING TO RIGHT FOOT, LEFT FOOT DRESSING REMAINS C/D/I. PT EDUCATED ON POST OP SHOES, DR LION PLACED POST OP SHOES ON PT AND SHE IMMEDIATELY REMOVED THEM ONCE HE LEFT THE ROOM. BLOOD GLUCOSE STABLE T/O THE DAY. PER DR GOODWIN PT WILL NEED 3 WEEKS OF ANTIBIOTICS. NO OTHER ACUTE CHANGES THIS SHIFT.
--- NOTE | 2020-04-11 17:45 | NUR ---
Spiritual care note: Jane had just been given pain meds, but they apparently hadn't had time to work yet. She was weeping and complained of pain. She calmed a bit by me sitting quietly, stroking her forhead. This did not last long, however. Informed RN of pt's continued pain and she immediately responded. Prayer offered and declined. I will remain available.
[2020-04-12 05:22] LABS: BASOPHILS ABSOLUTE AUTO 0.02 K/mm3 (0.00-0.23); BASOPHILS PERCENT AUTO 0 % (0-2); EOSINOPHILS ABSOLUTE AUTO 0.02 K/mm3 (0.00-0.68); EOSINOPHILS PERCENT AUTO 0 % (0-6); Hematocrit 25.8 % (33.0-51.0); Hemoglobin 7.8 g/dL (11.5-16.0); IMMATURE GRAN ABSOLUTE AUTO 0.02 K/mm3 (0.00-0.10); IMMATURE GRAN PERCENT AUTO 0 % (0-1); LYMPHOCYTES ABSOLUTE AUTO 2.15 K/mm3 (0.84-5.20); LYMPHOCYTES PERCENT AUTO 28 % (21-46); MONOCYTES ABSOLUTE AUTO 0.64 K/mm3 (0.16-1.47); MONOCYTES PERCENT AUTO 8 % (4-13); Mean Corpuscular HGB 26.8 pg (26.0-34.0); Mean Corpuscular HGB Conc 30.2 g/dL (31.5-36.5); Mean Corpuscular Volume 89 fL (80-100); Mean Platelet Volume 9.8 fL (9.1-12.4); NEUTROPHILS PERCENT AUTO 63 % (41-73); Platelet Count 374 K/mm3 (150-400); RDW Coefficient Variation 16.7 % (11.7-14.2); RDW Standard Deviation 54.6 fL (35.1-46.3); Red Blood Cell Count 2.91 M/mm3 (3.80-5.20); White Blood Cell Count 7.65 K/mm3 (4.00-11.30)
[2020-04-12 05:33] LABS: Anion Gap 5 mmol/L (6-16); Blood Urea Nitrogen 16 mg/dL (8-24); Bun/Creatinine Ratio 24.8 (12.0-20.0); CO2, Blood 26 mmol/L (21-32); Calcium, Blood 8.4 mg/dL (8.5-10.1); Chloride, Blood 101 mmol/L (98-108); Creatinine, Blood 0.65 mg/dL (0.40-1.00); Glomerular Filtration Rate >60 (60-); Glucose, Blood 595 mg/dL (70-99); Potassium, Blood 4.6 mmol/L (3.5-5.5); Sodium, Blood 132 mmol/L (136-145)
--- NOTE | 2020-04-12 05:44 | NUR ---
40 year old Female with hx of osteomylitis & MRSA recovering postop from amputations rt foot/toes & lt foot I & D. Bilat dressing clean dry intact. PT compliant with wearing postop shoes but says she needs more ankle support & wheelchair & FWW for discharge. PT is brittle diabetic with elevated blood glucose. Snacks frequently blood glucose checks are elevated nonfasting. recieved 10 units semglee insulin. Has sliding scale only AC. This AM lab greater than 500 will notify MD.Tolerating activity up to barthroom multiple times to void large amts of clear yellow urine. OFF floor x 1 in WC with significant other to smoke. Smoking cessation encouraged by DR & RN. Medicated multiple times for pain with percocet 5/325 mg two tabs or fentanyl 50 mcg. Toradol x 1 this AM. CO headache pain & nausea this AM medicated with zofran & imitrex with helpful effect. Reporedly using meth on a regular basis possibly uses IV but says she smokes it. Recieving unasyn & vanco to tx MRSA infection. Day RN reports surgeon says will need 3 weeks antibiotic therapy to tx postop.
--- NOTE | 2020-04-12 06:05 | NUR ---
DR Serrano notified of PTs elevated blood glucose nonfasting greater than 500 per lab this AM. Blood glocose 430 nonfasting at HS has no HS sliding scale. Yesterday coverage not indicated x 3 meals per EMAR. Has AM semglee 10 units ordered plus sliding scale insulin. PT states type 1 diabetes uncontrolled& extremes of highs or lows very common. Snacking most of night had yogurt & cheese recently. Will check Blood glucose prior to breakfast & treat as per Emar.
[2020-04-12 07:40] LABS: Glucose, Blood 558 mg/dL (70-99)
--- NOTE | 2020-04-12 08:05 | NUR ---
HYPERGLYCEMIA- PT BLOOD GLUCOSE NOTED TO BE HI ON GLUCOSE MONITOR THIS AM, REPEAT BLOOG GLUCOSE BY LAB RESULT OF 558. SCHEDULED LONG ACTING INSULIN OF 10 UNITS GIVEN AND 10 UNITS HUMALOG GIVEN PER SLIDING SCALE. DR CASTREJON NOTIFIED AND ORDERS RECEIVED TO ADD 30 UNITS LONG ACTING INSULIN AT BEDTIME, KEEP SLIDING SCALE AND 10 UNITS LONG ACTING IN THE AM. WILL CONT TO ROSALIA
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
[2020-04-13 05:57] LABS: Anion Gap 3 mmol/L (6-16); Blood Urea Nitrogen 20 mg/dL (8-24); Bun/Creatinine Ratio 31.9 (12.0-20.0); CO2, Blood 28 mmol/L (21-32); Chloride, Blood 103 mmol/L (98-108); Creatinine, Blood 0.63 mg/dL (0.40-1.00); Glomerular Filtration Rate >60 (60-); Glucose, Blood 480 mg/dL (70-99); Potassium, Blood 5.4 mmol/L (3.5-5.5); Sodium, Blood 134 mmol/L (136-145)
--- NOTE | 2020-04-13 06:34 | NUR ---
SHIFT SUMMARY PT IS A 40 Y/O FEMALE, ADMITTED FOR BLE FOOT CELLULITIS, WITH HX OF A R LAST THREE TOE AMPUTATION DURING THIS HOSPITALIZATION. SURGICAL DRESSINGS INTACT, CHANGED YESTERDAY BY DR GOODWIN PER REPORT. PT DID GO OUTSIDE TO SMOKE ONCE AT HS. SHE WAS MEDICATED TWICE FOR BL FOOT PAIN WITH PRN OXYCODONE. NO C/O NAUSEA OR SOB. VITAL SIGNS STABLE. PT IS ON KVO NS BETWEEN ABX. NO OTHER ACUTE CHANGES IN PT CONDITION NOTED. WILL CONTINUE TO MONITOR AND TREAT PER EMAR UNTIL HAND OFF TO DAY SHIFT RN.
--- NOTE | 2020-04-13 17:48 | NUR ---
SHIFT SUMMARY- PT A/O, PLESANT AND COOPERATIVE. SHE IS EATING AND DRINKING WELL. RECIEVING IV ABX. HER FEET ARE WRAPPED AND THE DRESSINGS ARE C/D/I. SHE HAD A BM TODAY AND HAS BEEN VOIDING. SHE IS RECIEVING PAIN MEDICATION NEEDED. SHE IS RECIEVING IV ABX.
[2020-04-13 23:56] LABS: Vancomycin, Trough 17.9 ug/mL (5.0-10.0)
--- NOTE | 2020-04-14 06:25 | NUR ---
SHIFT SUMMARY PATIENT ALERT AND ORIENTED OVERNIGHT. WAS MEDICATED PER EMAR FOR PAIN AND NAUSEA. PATIENT IS VERY TIRED AND FRUSTRATED FROM HAVING TO BE HOOKED UP TO THE IV IT MAKES HER HAVE TO URINATE FREQUENTLY. IV PATENT AND FLUSHED. BED IN LOWEST POSITION WITH WHEELS LOCKED. CALL LIGHT WITHIN REACH. REPORT GIVEN TO ONCOMING RN.
[2020-04-14 09:08] LABS: Albumin, Blood 2.3 g/dL (3.4-5.0); Anion Gap 1 mmol/L (6-16); Blood Urea Nitrogen 17 mg/dL (8-24); Bun/Creatinine Ratio 32.2 (12.0-20.0); CO2, Blood 30 mmol/L (21-32); Calcium, Blood 8.7 mg/dL (8.5-10.1); Chloride, Blood 105 mmol/L (98-108); Creatinine, Blood 0.53 mg/dL (0.40-1.00); Glomerular Filtration Rate >60 (60-); Glucose, Blood 266 mg/dL (70-99); Phosphorus, Blood 2.7 mg/dL (2.5-4.9); Potassium, Blood 4.9 mmol/L (3.5-5.5); Sodium, Blood 136 mmol/L (136-145)
[2020-04-14] MEDS ORDERED: LACT PO (10:59)
--- NOTE | 2020-04-14 14:56 | NUR ---
PT RESTING QUIETLY AT START OF SHIFT. WOKE EASILY FOR CARE. UP TO EOB FOR BREAKFAST. PT C/O PAIN TO L HEEL. MEDICATED PER EMAR. DR RIVERS IN TO SEE PT. DRSG REMOVED FROM L FOOT I&D. BLISTER LIKE SWELLING TO INSIDE HEEL. PT REPORTED DR GOODWIN WAS AWARE AND THAT NO INTERVENTION WAS NEEDED. R FOOT DRSG CHANGED WELL, PER PT REQUEST AND LATER BY DR GOODWIN FOR D/C; 3RD, 4TH, AND 5TH TOES REMOVED BY DR GOODWIN. SUTURES INTACT; HEALING WNL'S. DR RIVERS SPOKE WITH DR GOODWIN. PT TO F/U OUTPT IN 1 WK. ALL DRSG'S CHANGED PER DR GOODWIN. WOUNDS APPEAR TO BE HEALING WNL'S. NO DRAINAGE ON ANY DRSG'S. PT WAS TO HAVE BEEN D/C'D YESTERDAY, BUT CBG'S ELEVATED D/T NONCOMPLIANCE WITH DIABETIC DIET. INSULIN COVERAGE CHANGED. CBG'S IMPROVED; SEE CHART. PT OUT TO [facility] FOR A WHILE IN W/C, SELF. PT'S S/O CALLED TO PICK PT UP AT D/C. MEDS FAXED PER PT REQUEST. PT ASSISTED OUT VIA HOME W/C; BROUGHT IN BY [facility], PER REPORT. MEDICATED PER EMAR, PRIOR TO D/C. PT WANTING PAIN MEDICATION PRESCRIPTION PRIOR TO D/C. DR RIVERS NOTIFIED. PT TO CONTINUE WITH HOME NARCOTICS NEEDED AND TYLENOL. VERBALIZED UNDERSTANDING.
== END 2020-04-14 13:33 | disposition home health service (06) | DRG 617 ==
LOC: ER 01:39 → MEDS 04:14
PROVIDERS: Emergency Medicine; Internal Medicine; Podiatrist Foot & Ankle Surgery; ADMIT Internal Medicine
PROC: 0Y6M0ZD Detachment at Right Foot, Partial 4th Ray, Open Approach (ICD-10-PCS; 2020-04-10)
PROC: 0Y6M0ZF Detachment at Right Foot, Partial 5th Ray, Open Approach (ICD-10-PCS; 2020-04-10)
PROC: 0Y6M0ZC Detachment at Right Foot, Partial 3rd Ray, Open Approach (ICD-10-PCS; principal; 2020-04-10 16:15)
PROC: 0JBR0ZZ Excision of Left Foot Subcutaneous Tissue and Fascia, Open Approach (ICD-10-PCS; 2020-04-10 16:15)
DX: E10.69 Type 1 diabetes mellitus with other specified complication (principal); L02.611 Cutaneous abscess of right foot; L03.115 Cellulitis of right lower limb; M86.8X7 Other osteomyelitis, ankle and foot; Z20.828 Contact with and (suspected) exposure to other viral communicable diseases; E10.621 Type 1 diabetes mellitus with foot ulcer; L97.529 Non-pressure chronic ulcer of other part of left foot with unspecified severity; L97.519 Non-pressure chronic ulcer of other part of right foot with unspecified severity; J45.909 Unspecified asthma, uncomplicated; E10.40 Type 1 diabetes mellitus with diabetic neuropathy, unspecified; G40.909 Epilepsy, unspecified, not intractable, without status epilepticus; F32.9 Major depressive disorder, single episode, unspecified; F41.9 Anxiety disorder, unspecified; D64.9 Anemia, unspecified; G89.4 Chronic pain syndrome; F17.210 Nicotine dependence, cigarettes, uncomplicated; E10.65 Type 1 diabetes mellitus with hyperglycemia; K21.9 Gastro-esophageal reflux disease without esophagitis; G47.00 Insomnia, unspecified; E10.649 Type 1 diabetes mellitus with hypoglycemia without coma; F15.11 Other stimulant abuse, in remission; F12.11 Cannabis abuse, in remission; Z86.14 Personal history of Methicillin resistant Staphylococcus aureus infection; Z79.899 Other long term (current) drug therapy; Z79.4 Long term (current) use of insulin; Z79.891 Long term (current) use of opiate analgesic; Z89.431 Acquired absence of right foot; Z88.1 Allergy status to other antibiotic agents; Z88.5 Allergy status to narcotic agent
CPT/HCPCS: 36415; 73630; 80048; 80053; 80069; 80202; 82947; 83605; 85025; 87040; 88307; 88311; 96365; 96367; 96375; 97110; 97116; 97161; 99285-25; A9270; A9270-GY; C9113; J0295; J1650; J1815; J1885; J2060; J2250; J2370; J2405; J2704; J3010; J3370; J7030; J7050; J7120; U0004

== ENCOUNTER 2020-05-26 18:12 | Inpatient (IN) | payer OTHER ==
[~2020-05-26] VITALS: Ht 172.7 cm; Wt 62.4 kg
[~2020-05-26 18:12] MED LIST changes: -ACET500 PO; -BASAGLAR K100 UNIT/1 SC; -BUSP10 PO; -HUMALOG KW100 UNIT/1 SC; -INDO50 PO; -PRAZOSIN HCL1 M2 PO
[2020-05-26 18:48] LABS: BASOPHILS ABSOLUTE AUTO 0.05 K/mm3 (0.00-0.23); BASOPHILS PERCENT AUTO 1 % (0-2); EOSINOPHILS ABSOLUTE AUTO 0.03 K/mm3 (0.00-0.68); EOSINOPHILS PERCENT AUTO 0 % (0-6); Hematocrit 36.1 % (33.0-51.0); Hemoglobin 11.1 g/dL (11.5-16.0); IMMATURE GRAN ABSOLUTE AUTO 0.02 K/mm3 (0.00-0.10); IMMATURE GRAN PERCENT AUTO 0 % (0-1); LYMPHOCYTES ABSOLUTE AUTO 2.11 K/mm3 (0.84-5.20); LYMPHOCYTES PERCENT AUTO 27 % (21-46); MONOCYTES ABSOLUTE AUTO 0.63 K/mm3 (0.16-1.47); MONOCYTES PERCENT AUTO 8 % (4-13); Mean Corpuscular HGB 26.1 pg (26.0-34.0); Mean Corpuscular HGB Conc 30.7 g/dL (31.5-36.5); Mean Corpuscular Volume 85 fL (80-100); Mean Platelet Volume 9.6 fL (9.1-12.4); NEUTROPHILS ABSOLUTE AUTO 4.95 K/mm3 (1.96-9.15); NEUTROPHILS PERCENT AUTO 64 % (41-73); Platelet Count 543 K/mm3 (150-400); RDW Coefficient Variation 15.2 % (11.7-14.2); RDW Standard Deviation 47.4 fL (35.1-46.3); Red Blood Cell Count 4.26 M/mm3 (3.80-5.20); White Blood Cell Count 7.79 K/mm3 (4.00-11.30)
[2020-05-26 19:09] LABS: Alanine Aminotransfer (ALT/SGP 14 U/L (12-78); Albumin, Blood 3.1 g/dL (3.4-5.0); Albumin/Globulin Ratio 0.6 (0.8-1.8); Alk Phos 151 U/L (50-136); Anion Gap 10 mmol/L (6-16); Aspartate Aminotrans (AST/SGOT 11 U/L (12-37); Bilirubin, Total 0.2 mg/dL (0.1-1.0); Blood Urea Nitrogen 14 mg/dL (8-24); Bun/Creatinine Ratio 22.6 (12.0-20.0); CO2, Blood 21 mmol/L (21-32); Calcium, Blood 9.5 mg/dL (8.5-10.1); Chloride, Blood 96 mmol/L (98-108); Creatinine, Blood 0.62 mg/dL (0.40-1.00); Globulin, Blood 5.2 g/dL (2.2-4.0); Glomerular Filtration Rate >60 (60-); Glucose, Blood 516 mg/dL (70-99); Potassium, Blood 4.6 mmol/L (3.5-5.5); Sodium, Blood 127 mmol/L (136-145); Total Protein, Blood 8.3 g/dL (6.4-8.2)
[2020-05-26] MEDS ORDERED: BENADRYL25 MG PO (19:44)
[2020-05-26] MEDS ORDERED: ACET325 PO (19:46)
[2020-05-26] MEDS ORDERED: SULTRIDS PO (19:59)
[2020-05-26] MEDS ORDERED: HUMALOG KW100 UNIT/1 SC (20:01)
[2020-05-27 04:28] LABS: BASOPHILS ABSOLUTE AUTO 0.02 K/mm3 (0.00-0.23); BASOPHILS PERCENT AUTO 0 % (0-2); EOSINOPHILS ABSOLUTE AUTO 0.02 K/mm3 (0.00-0.68); EOSINOPHILS PERCENT AUTO 0 % (0-6); Hematocrit 31.1 % (33.0-51.0); Hemoglobin 9.6 g/dL (11.5-16.0); IMMATURE GRAN ABSOLUTE AUTO 0.02 K/mm3 (0.00-0.10); IMMATURE GRAN PERCENT AUTO 0 % (0-1); LYMPHOCYTES ABSOLUTE AUTO 2.06 K/mm3 (0.84-5.20); LYMPHOCYTES PERCENT AUTO 26 % (21-46); MONOCYTES ABSOLUTE AUTO 0.76 K/mm3 (0.16-1.47); MONOCYTES PERCENT AUTO 9 % (4-13); Mean Corpuscular HGB 26.1 pg (26.0-34.0); Mean Corpuscular HGB Conc 30.9 g/dL (31.5-36.5); Mean Corpuscular Volume 85 fL (80-100); Mean Platelet Volume 9.5 fL (9.1-12.4); NEUTROPHILS ABSOLUTE AUTO 5.17 K/mm3 (1.96-9.15); NEUTROPHILS PERCENT AUTO 64 % (41-73); Platelet Count 481 K/mm3 (150-400); RDW Standard Deviation 46.3 fL (35.1-46.3); Red Blood Cell Count 3.68 M/mm3 (3.80-5.20); White Blood Cell Count 8.05 K/mm3 (4.00-11.30)
[2020-05-27 04:43] LABS: Anion Gap 6 mmol/L (6-16); Blood Urea Nitrogen 13 mg/dL (8-24); Bun/Creatinine Ratio 21.5 (12.0-20.0); CO2, Blood 26 mmol/L (21-32); Calcium, Blood 8.9 mg/dL (8.5-10.1); Chloride, Blood 99 mmol/L (98-108); Creatinine, Blood 0.61 mg/dL (0.40-1.00); Glomerular Filtration Rate >60 (60-); Glucose, Blood 431 mg/dL (70-99); Potassium, Blood 4.6 mmol/L (3.5-5.5); Sodium, Blood 131 mmol/L (136-145)
[2020-05-27 23:06] LABS: Adenovirus F 40/41 Not Detected (NOT DETECT); Astrovirus Not Detected (NOT DETECT); Campylobacter Sp Not Detected (NOT DETECT); Cryptosporidium Not Detected (NOT DETECT); Cyclospora Cayetanensis Not Detected (NOT DETECT); E. Coli O157 Not Detected (NOT DETECT); Entamoeba Histolytica Not Detected (NOT DETECT); Enteroaggregative E. coli-EAEC Not Detected (NOT DETECT); Enteropathogenic E. coli-EPEC Not Detected (NOT DETECT); Enterotoxigenic E. coli-ETEC Not Detected (NOT DETECT); Giardia Lamblia Not Detected (NOT DETECT); Norovirus GI/GII Not Detected (NOT DETECT); Plesiomonas Shigelloides Not Detected (NOT DETECT); Rotavirus A Not Detected (NOT DETECT); Salmonella Sp Not Detected (NOT DETECT); Sapovirus Not Detected (NOT DETECT); Shiga Toxin-prod E. coli-STEC Not Detected (NOT DETECT); Shigella/Enteroin E. coli-EIEC Not Detected (NOT DETECT); Vibrio Cholerae Not Detected (NOT DETECT); Vibrio Sp Not Detected (NOT DETECT); Yersinia Enterocolitica Not Detected (NOT DETECT)
[2020-05-28 05:12] LABS: Hematocrit 27.9 % (33.0-51.0); Hemoglobin 8.6 g/dL (11.5-16.0); Mean Corpuscular HGB 26.1 pg (26.0-34.0); Mean Corpuscular HGB Conc 30.8 g/dL (31.5-36.5); Mean Corpuscular Volume 85 fL (80-100); Mean Platelet Volume 9.6 fL (9.1-12.4); Platelet Count 470 K/mm3 (150-400); RDW Coefficient Variation 14.7 % (11.7-14.2); RDW Standard Deviation 45.7 fL (35.1-46.3); White Blood Cell Count 5.02 K/mm3 (4.00-11.30)
[2020-05-28 05:26] LABS: Anion Gap 4 mmol/L (6-16); Blood Urea Nitrogen 24 mg/dL (8-24); Bun/Creatinine Ratio 36.1 (12.0-20.0); CO2, Blood 29 mmol/L (21-32); Calcium, Blood 8.4 mg/dL (8.5-10.1); Chloride, Blood 104 mmol/L (98-108); Creatinine, Blood 0.67 mg/dL (0.40-1.00); Glomerular Filtration Rate >60 (60-); Glucose, Blood 207 mg/dL (70-99); Potassium, Blood 4.2 mmol/L (3.5-5.5); Sodium, Blood 137 mmol/L (136-145)
[2020-05-28 05:43] LABS: Percent Saturation 8.9 % (15.0-50.0)
[2020-05-28 13:45] LABS: Vancomycin, Trough 16.3 ug/mL (5.0-10.0)
[2020-05-29 00:30] LABS: Influenza A, PCR Negative (NEGATIVE); Influenza B, PCR Negative (NEGATIVE); Resp Syncytial Virus, PCR Negative (NEGATIVE); SARS-Cov-2 (COVID-19) PCR, MMC Negative (NEGATIVE)
[2020-05-29 04:47] LABS: BASOPHILS ABSOLUTE AUTO 0.03 K/mm3 (0.00-0.23); BASOPHILS PERCENT AUTO 1 % (0-2); EOSINOPHILS ABSOLUTE AUTO 0.05 K/mm3 (0.00-0.68); EOSINOPHILS PERCENT AUTO 1 % (0-6); Hematocrit 29.4 % (33.0-51.0); Hemoglobin 9.2 g/dL (11.5-16.0); IMMATURE GRAN ABSOLUTE AUTO 0.01 K/mm3 (0.00-0.10); IMMATURE GRAN PERCENT AUTO 0 % (0-1); LYMPHOCYTES ABSOLUTE AUTO 2.29 K/mm3 (0.84-5.20); LYMPHOCYTES PERCENT AUTO 39 % (21-46); MONOCYTES ABSOLUTE AUTO 0.58 K/mm3 (0.16-1.47); MONOCYTES PERCENT AUTO 10 % (4-13); Mean Corpuscular HGB 26.2 pg (26.0-34.0); Mean Corpuscular HGB Conc 31.3 g/dL (31.5-36.5); Mean Corpuscular Volume 84 fL (80-100); Mean Platelet Volume 9.6 fL (9.1-12.4); NEUTROPHILS ABSOLUTE AUTO 2.96 K/mm3 (1.96-9.15); NEUTROPHILS PERCENT AUTO 50 % (41-73); Platelet Count 450 K/mm3 (150-400); RDW Coefficient Variation 14.8 % (11.7-14.2); RDW Standard Deviation 44.8 fL (35.1-46.3); Red Blood Cell Count 3.51 M/mm3 (3.80-5.20); White Blood Cell Count 5.92 K/mm3 (4.00-11.30)
[2020-05-29 05:01] LABS: Anion Gap 6 mmol/L (6-16); Blood Urea Nitrogen 19 mg/dL (8-24); Bun/Creatinine Ratio 30.4 (12.0-20.0); CO2, Blood 26 mmol/L (21-32); Calcium, Blood 8.1 mg/dL (8.5-10.1); Chloride, Blood 105 mmol/L (98-108); Creatinine, Blood 0.63 mg/dL (0.40-1.00); Glomerular Filtration Rate >60 (60-); Glucose, Blood 283 mg/dL (70-99); Potassium, Blood 4.1 mmol/L (3.5-5.5); Sodium, Blood 137 mmol/L (136-145)
[2020-05-30 04:57] LABS: BASOPHILS ABSOLUTE AUTO 0.03 K/mm3 (0.00-0.23); BASOPHILS PERCENT AUTO 1 % (0-2); EOSINOPHILS ABSOLUTE AUTO 0.05 K/mm3 (0.00-0.68); EOSINOPHILS PERCENT AUTO 1 % (0-6); Hematocrit 30.6 % (33.0-51.0); Hemoglobin 9.4 g/dL (11.5-16.0); IMMATURE GRAN ABSOLUTE AUTO 0.02 K/mm3 (0.00-0.10); IMMATURE GRAN PERCENT AUTO 0 % (0-1); LYMPHOCYTES ABSOLUTE AUTO 2.68 K/mm3 (0.84-5.20); LYMPHOCYTES PERCENT AUTO 43 % (21-46); MONOCYTES ABSOLUTE AUTO 0.57 K/mm3 (0.16-1.47); MONOCYTES PERCENT AUTO 9 % (4-13); Mean Corpuscular HGB 26.2 pg (26.0-34.0); Mean Corpuscular HGB Conc 30.7 g/dL (31.5-36.5); Mean Corpuscular Volume 85 fL (80-100); Mean Platelet Volume 9.3 fL (9.1-12.4); NEUTROPHILS ABSOLUTE AUTO 2.91 K/mm3 (1.96-9.15); NEUTROPHILS PERCENT AUTO 47 % (41-73); Platelet Count 542 K/mm3 (150-400); RDW Coefficient Variation 14.6 % (11.7-14.2); RDW Standard Deviation 45.5 fL (35.1-46.3); Red Blood Cell Count 3.59 M/mm3 (3.80-5.20); White Blood Cell Count 6.26 K/mm3 (4.00-11.30)
[2020-05-30 05:14] LABS: Anion Gap 4 mmol/L (6-16); Blood Urea Nitrogen 16 mg/dL (8-24); Bun/Creatinine Ratio 24.1 (12.0-20.0); CO2, Blood 31 mmol/L (21-32); Calcium, Blood 8.4 mg/dL (8.5-10.1); Chloride, Blood 104 mmol/L (98-108); Creatinine, Blood 0.67 mg/dL (0.40-1.00); Glomerular Filtration Rate >60 (60-); Glucose, Blood 295 mg/dL (70-99); Potassium, Blood 4.5 mmol/L (3.5-5.5); Sodium, Blood 139 mmol/L (136-145)
[2020-05-30 13:30] LABS: Vancomycin, Trough 16.6 ug/mL (5.0-10.0)
[2020-05-31 03:29] LABS: BASOPHILS ABSOLUTE AUTO 0.04 K/mm3 (0.00-0.23); BASOPHILS PERCENT AUTO 0 % (0-2); EOSINOPHILS PERCENT AUTO 0 % (0-6); Hemoglobin 9.3 g/dL (11.5-16.0); IMMATURE GRAN ABSOLUTE AUTO 0.04 K/mm3 (0.00-0.10); IMMATURE GRAN PERCENT AUTO 0 % (0-1); LYMPHOCYTES ABSOLUTE AUTO 1.73 K/mm3 (0.84-5.20); LYMPHOCYTES PERCENT AUTO 16 % (21-46); MONOCYTES ABSOLUTE AUTO 0.55 K/mm3 (0.16-1.47); MONOCYTES PERCENT AUTO 5 % (4-13); Mean Corpuscular HGB 26.1 pg (26.0-34.0); Mean Corpuscular Volume 84 fL (80-100); Mean Platelet Volume 9.3 fL (9.1-12.4); NEUTROPHILS PERCENT AUTO 78 % (41-73); Platelet Count 528 K/mm3 (150-400); RDW Coefficient Variation 14.6 % (11.7-14.2); RDW Standard Deviation 44.2 fL (35.1-46.3); Red Blood Cell Count 3.57 M/mm3 (3.80-5.20); White Blood Cell Count 10.96 K/mm3 (4.00-11.30)
[2020-05-31 03:44] LABS: Anion Gap 4 mmol/L (6-16); Blood Urea Nitrogen 23 mg/dL (8-24); Bun/Creatinine Ratio 34.5 (12.0-20.0); CO2, Blood 28 mmol/L (21-32); Calcium, Blood 8.6 mg/dL (8.5-10.1); Chloride, Blood 100 mmol/L (98-108); Creatinine, Blood 0.67 mg/dL (0.40-1.00); Glomerular Filtration Rate >60 (60-); Glucose, Blood 497 mg/dL (70-99); Potassium, Blood 5.1 mmol/L (3.5-5.5); Sodium, Blood 132 mmol/L (136-145)
[2020-06-01 05:05] LABS: BASOPHILS ABSOLUTE AUTO 0.04 K/mm3 (0.00-0.23); BASOPHILS PERCENT AUTO 1 % (0-2); EOSINOPHILS ABSOLUTE AUTO 0.08 K/mm3 (0.00-0.68); EOSINOPHILS PERCENT AUTO 1 % (0-6); Hematocrit 24.4 % (33.0-51.0); Hemoglobin 7.5 g/dL (11.5-16.0); IMMATURE GRAN ABSOLUTE AUTO 0.02 K/mm3 (0.00-0.10); IMMATURE GRAN PERCENT AUTO 0 % (0-1); LYMPHOCYTES ABSOLUTE AUTO 3.84 K/mm3 (0.84-5.20); LYMPHOCYTES PERCENT AUTO 48 % (21-46); MONOCYTES ABSOLUTE AUTO 0.75 K/mm3 (0.16-1.47); MONOCYTES PERCENT AUTO 9 % (4-13); Mean Corpuscular HGB 26.3 pg (26.0-34.0); Mean Corpuscular HGB Conc 30.7 g/dL (31.5-36.5); Mean Corpuscular Volume 86 fL (80-100); Mean Platelet Volume 9.6 fL (9.1-12.4); NEUTROPHILS ABSOLUTE AUTO 3.29 K/mm3 (1.96-9.15); NEUTROPHILS PERCENT AUTO 41 % (41-73); Platelet Count 463 K/mm3 (150-400); RDW Standard Deviation 47.3 fL (35.1-46.3); Red Blood Cell Count 2.85 M/mm3 (3.80-5.20); White Blood Cell Count 8.02 K/mm3 (4.00-11.30)
[2020-06-01 05:25] LABS: Anion Gap 5 mmol/L (6-16); Blood Urea Nitrogen 27 mg/dL (8-24); Bun/Creatinine Ratio 36.1 (12.0-20.0); CO2, Blood 29 mmol/L (21-32); Calcium, Blood 8.4 mg/dL (8.5-10.1); Chloride, Blood 106 mmol/L (98-108); Creatinine, Blood 0.75 mg/dL (0.40-1.00); Glomerular Filtration Rate >60 (60-); Glucose, Blood 110 mg/dL (70-99); Potassium, Blood 4.4 mmol/L (3.5-5.5); Sodium, Blood 140 mmol/L (136-145)
[2020-06-01 13:35] LABS: Vancomycin, Trough 23.5 ug/mL (5.0-10.0)
[2020-06-02 05:26] LABS: BASOPHILS ABSOLUTE AUTO 0.05 K/mm3 (0.00-0.23); BASOPHILS PERCENT AUTO 1 % (0-2); EOSINOPHILS ABSOLUTE AUTO 0.07 K/mm3 (0.00-0.68); EOSINOPHILS PERCENT AUTO 1 % (0-6); Hematocrit 26.7 % (33.0-51.0); Hemoglobin 8.3 g/dL (11.5-16.0); IMMATURE GRAN ABSOLUTE AUTO 0.02 K/mm3 (0.00-0.10); IMMATURE GRAN PERCENT AUTO 0 % (0-1); LYMPHOCYTES PERCENT AUTO 50 % (21-46); MONOCYTES ABSOLUTE AUTO 0.58 K/mm3 (0.16-1.47); MONOCYTES PERCENT AUTO 9 % (4-13); Mean Corpuscular HGB 26.9 pg (26.0-34.0); Mean Corpuscular HGB Conc 31.1 g/dL (31.5-36.5); Mean Corpuscular Volume 86 fL (80-100); Mean Platelet Volume 9.6 fL (9.1-12.4); NEUTROPHILS ABSOLUTE AUTO 2.35 K/mm3 (1.96-9.15); NEUTROPHILS PERCENT AUTO 38 % (41-73); Platelet Count 468 K/mm3 (150-400); RDW Coefficient Variation 15.1 % (11.7-14.2); RDW Standard Deviation 47.3 fL (35.1-46.3); Red Blood Cell Count 3.09 M/mm3 (3.80-5.20); White Blood Cell Count 6.17 K/mm3 (4.00-11.30)
[2020-06-02 05:55] LABS: Albumin, Blood 2.2 g/dL (3.4-5.0); Anion Gap 3 mmol/L (6-16); Blood Urea Nitrogen 20 mg/dL (8-24); Bun/Creatinine Ratio 30.8 (12.0-20.0); CO2, Blood 28 mmol/L (21-32); Calcium, Blood 8.4 mg/dL (8.5-10.1); Chloride, Blood 107 mmol/L (98-108); Creatinine, Blood 0.65 mg/dL (0.40-1.00); Glomerular Filtration Rate >60 (60-); Glucose, Blood 179 mg/dL (70-99); Phosphorus, Blood 3.9 mg/dL (2.5-4.9); Potassium, Blood 4.6 mmol/L (3.5-5.5); Sodium, Blood 138 mmol/L (136-145)
[2020-06-03 05:17] LABS: Albumin, Blood 2.8 g/dL (3.4-5.0); Anion Gap 2 mmol/L (6-16); Blood Urea Nitrogen 26 mg/dL (8-24); Bun/Creatinine Ratio 32.5 (12.0-20.0); CO2, Blood 28 mmol/L (21-32); Calcium, Blood 9.3 mg/dL (8.5-10.1); Chloride, Blood 106 mmol/L (98-108); Glomerular Filtration Rate >60 (60-); Glucose, Blood 162 mg/dL (70-99); Phosphorus, Blood 4.4 mg/dL (2.5-4.9); Potassium, Blood 5.2 mmol/L (3.5-5.5); Sodium, Blood 136 mmol/L (136-145)
[2020-06-03] MEDS ORDERED: AMOCLA875 PO (11:28)
[2020-06-03] MEDS ORDERED: NICODERM CQ1 EAC2 TOP (11:28)
[2020-06-03] MEDS ORDERED: OXAYDO5 M1 PO (11:29)
[2020-06-03] MEDS ORDERED: NICO2 PO (11:29)
[2020-06-03] MEDS ORDERED: MIRALAX17 GM PO (11:30)
[2020-06-03] MEDS ORDERED: VISBIOME PROBIOTIC PO (11:30)
== END 2020-06-03 13:28 | disposition home or self-care (01) | DRG 616 ==
LOC: ER 18:12 → MEDS 23:20 → ER 05-27 00:07 → MEDS 05-27 00:07
PROVIDERS: Emergency Medicine; Family Medicine; Internal Medicine; Nurse Practitioner Acute Care; Pharmacist; Podiatrist Foot & Ankle Surgery; ADMIT Family Medicine
PROC: 0Y6N0ZB Detachment at Left Foot, Partial 2nd Ray, Open Approach (ICD-10-PCS; 2020-05-30)
PROC: 0Y6N0ZC Detachment at Left Foot, Partial 3rd Ray, Open Approach (ICD-10-PCS; 2020-05-30)
PROC: 0Y6N0ZD Detachment at Left Foot, Partial 4th Ray, Open Approach (ICD-10-PCS; 2020-05-30)
PROC: 0Y6N0ZF Detachment at Left Foot, Partial 5th Ray, Open Approach (ICD-10-PCS; 2020-05-30)
PROC: 0Y6N0Z9 Detachment at Left Foot, Partial 1st Ray, Open Approach (ICD-10-PCS; principal; 2020-05-30 16:00)
DX: E10.621 Type 1 diabetes mellitus with foot ulcer (principal); A41.9 Sepsis, unspecified organism; M86.172 Other acute osteomyelitis, left ankle and foot; L97.422 Non-pressure chronic ulcer of left heel and midfoot with fat layer exposed; M00.9 Pyogenic arthritis, unspecified; E10.40 Type 1 diabetes mellitus with diabetic neuropathy, unspecified; J45.909 Unspecified asthma, uncomplicated; G40.909 Epilepsy, unspecified, not intractable, without status epilepticus; F17.210 Nicotine dependence, cigarettes, uncomplicated; Z89.431 Acquired absence of right foot; E10.65 Type 1 diabetes mellitus with hyperglycemia; F15.10 Other stimulant abuse, uncomplicated; D63.8 Anemia in other chronic diseases classified elsewhere; E10.42 Type 1 diabetes mellitus with diabetic polyneuropathy
CPT/HCPCS: 0097U; 0241U; 36415; 73620; 73718; 80048; 80053; 80069; 80202; 82728; 82947; 83540; 83550; 85025; 85027; 85651; 86140; 88307; 88311; 96365; 96366; 96367; 96375; 97110; 97161; 97165; 97530; 97535; 99285-25; A9270; A9270-GY; C1751; C9113; J0295; J1100; J1170; J1650; J1956; J2001; J2250; J2270; J2370; J2405; J2704; J3010; J3370; J7030; J7050; J7120; Q0163

== ENCOUNTER 2020-06-20 14:44 | Inpatient (IN) | payer OTHER ==
[~2020-06-20] VITALS: Ht 172.7 cm; Wt 54.4 kg
[~2020-06-20 14:44] MED LIST changes: +HUMALOG KW100 UNIT/1 SC; +MIRALAX17 GM PO; +NICO2 PO; +NICODERM CQ1 EAC2 TOP; +OXAYDO5 M1 PO; +VISBIOME PROBIOTIC PO
[2020-06-20 15:49] LABS: BASOPHILS ABSOLUTE AUTO 0.12 K/mm3 (0.00-0.23); BASOPHILS PERCENT AUTO 1 % (0-2); EOSINOPHILS PERCENT AUTO 0 % (0-6); Hematocrit 43.2 % (33.0-51.0); Hemoglobin 13.1 g/dL (11.5-16.0); IMMATURE GRAN ABSOLUTE AUTO 0.19 K/mm3 (0.00-0.10); IMMATURE GRAN PERCENT AUTO 1 % (0-1); LYMPHOCYTES ABSOLUTE AUTO 3.51 K/mm3 (0.84-5.20); LYMPHOCYTES PERCENT AUTO 19 % (21-46); MONOCYTES ABSOLUTE AUTO 0.69 K/mm3 (0.16-1.47); MONOCYTES PERCENT AUTO 4 % (4-13); Mean Corpuscular HGB 25.6 pg (26.0-34.0); Mean Corpuscular HGB Conc 30.3 g/dL (31.5-36.5); Mean Corpuscular Volume 85 fL (80-100); NEUTROPHILS ABSOLUTE AUTO 14.08 K/mm3 (1.96-9.15); NEUTROPHILS PERCENT AUTO 76 % (41-73); Platelet Count 543 K/mm3 (150-400); RDW Coefficient Variation 13.7 % (11.7-14.2); RDW Standard Deviation 42.6 fL (35.1-46.3); Red Blood Cell Count 5.11 M/mm3 (3.80-5.20); White Blood Cell Count 18.59 K/mm3 (4.00-11.30)
[2020-06-20 16:30] LABS: Alanine Aminotransfer (ALT/SGP 19 U/L (12-78); Albumin, Blood 3.8 g/dL (3.4-5.0); Albumin/Globulin Ratio 0.6 (0.8-1.8); Alk Phos 198 U/L (50-136); Anion Gap 24 mmol/L (6-16); Aspartate Aminotrans (AST/SGOT 13 U/L (12-37); Bilirubin, Total 0.4 mg/dL (0.1-1.0); Blood Urea Nitrogen 23 mg/dL (8-24); Bun/Creatinine Ratio 34.6 (12.0-20.0); CO2, Blood 9 mmol/L (21-32); Calcium, Blood 9.6 mg/dL (8.5-10.1); Chloride, Blood 92 mmol/L (98-108); Creatinine, Blood 0.67 mg/dL (0.40-1.00); Glomerular Filtration Rate >60 (60-); Glucose, Blood 546 mg/dL (70-99); Sodium, Blood 125 mmol/L (136-145); Total Protein, Blood 9.8 g/dL (6.4-8.2)
[2020-06-20 17:28] LABS: Source, Urine Clean Catch
[2020-06-20 17:32] LABS: Albumin, Blood 3.8 g/dL (3.4-5.0); Anion Gap 26 mmol/L (6-16); Blood Urea Nitrogen 26 mg/dL (8-24); Bun/Creatinine Ratio 36.9 (12.0-20.0); CO2, Blood 8 mmol/L (21-32); Calcium, Blood 9.4 mg/dL (8.5-10.1); Chloride, Blood 92 mmol/L (98-108); Glomerular Filtration Rate >60 (60-); Phosphorus, Blood 5.7 mg/dL (2.5-4.9); Potassium, Blood 5.7 mmol/L (3.5-5.5); Sodium, Blood 126 mmol/L (136-145)
[2020-06-20 17:37] LABS: Appearance, Urine Clear (Clear); Bilirubin, Urine Neg (Neg); Blood, Urine Neg (Neg); Color, Urine Yellow (P-Yellow); Glucose Qualitative, Urine 4+ (Neg); Ketones, Urine 4+ (Neg); Leukocyte Esterase, Urine Neg (Neg); Nitrite, Urine Neg (Neg); Protein, Urine 1+ (Neg); Specific Gravity, Urine 1.025 (1.003-1.022); Urobilinogen, Urine NORM (Normal)
[2020-06-20 17:48] LABS: U Amphetamine Screen DETECTED; U Barbituate Screen Not Detected; U Methamphetamine Screen DETECTED
[2020-06-20 17:49] LABS: U Benzodiazapine Screen Not Detected; U Buprenorphine Screen Not Detected; U Cannabinoids Screen DETECTED; U Cocaine Screen Not Detected; U Methadone Screen Not Detected; U Opiates Screen Not Detected; U Oxycodone Screen Not Detected; U Phencyclidine Screen Not Detected; U Propoxyphene Screen Not Detected
[2020-06-20 18:05] LABS: Glucose, Blood 568 mg/dL (70-99)
[2020-06-20 21:54] LABS: Base Excess Venous -18.5 mmol/L; Bicarbonate Venous 11.3 mmol/L (24.0-30.0); PCO2 Venous 34.9 mmHg (38-42); PO2 Venous 54.2 mmHg (38-42); pH Blood Venous 7.11 (7.34-7.37)
[2020-06-20 22:16] LABS: Albumin, Blood 3.2 g/dL (3.4-5.0); Anion Gap 17 mmol/L (6-16); Blood Urea Nitrogen 26 mg/dL (8-24); Bun/Creatinine Ratio 39.6 (12.0-20.0); CO2, Blood 12 mmol/L (21-32); Calcium, Blood 8.3 mg/dL (8.5-10.1); Chloride, Blood 108 mmol/L (98-108); Creatinine, Blood 0.66 mg/dL (0.40-1.00); Glomerular Filtration Rate >60 (60-); Glucose, Blood 268 mg/dL (70-99); Phosphorus, Blood 2.8 mg/dL (2.5-4.9); Potassium, Blood 4.2 mmol/L (3.5-5.5)
[2020-06-20 22:19] LABS: Sodium, Blood 137 mmol/L (136-145)
--- NOTE | 2020-06-20 23:00 | NUR ---
PT TX TO ICU FROM ER. SLIDER SHEET UTILIZED FOR TX TO ICU BED. UPON ARRIVAL PT ALERT AND ORIENTED TO PERSON AND PLACE. PT ANXIOUS, MOANING, C/O ABD PAIN AND NAUSEA. WRITHING IN BED, UNABLE TO REMAIN STILL. DRY HEAVING SMALL AMOUNTS OF THICK SPUTUM. SHORTLY AFTER TX TO ICU BED, PT AMBULATED TO BEDSIDE COMMODE. PT HAD ONE LOOSE, GREEN BOWEL MOVEMENT. PT A POOR HISTORIAN, WILL NOT INFORM STAFF OF HER PAST MEDICAL HISTORY. SHE IS NOT COMBATIVE, BUT WILL NOT COOPERATE WITH PROVIDING HISTORY OR UPDATING CHART. PT REFUSED TO SIGN ANY FORMS, JUST WANTS TO BE LEFT ALONE. ADMITS TO RECENT METH ABUSE AND NOT TAKING HER MEDICATIONS. INQUIRED ABOUT PTS LLE DIGIT AMPUTATION BUT PT UNWILLING TO DISCUSS THE SURGERY. WOUND OPEN TO AIR, PT UNSURE IF SHE HAS BEEN FOLLOWING UP WITH HER DR FOR WOUND TREATMENT. WILL CONTINUE TO MONITOR AND ATTEMPT FURTHER DETAILED ASSESSMENT PER PT COMPLIANCE.
[2020-06-21 01:42] LABS: Albumin, Blood 2.5 g/dL (3.4-5.0); Anion Gap 9 mmol/L (6-16); Blood Urea Nitrogen 20 mg/dL (8-24); Bun/Creatinine Ratio 37.4 (12.0-20.0); CO2, Blood 18 mmol/L (21-32); Calcium, Blood 6.9 mg/dL (8.5-10.1); Chloride, Blood 115 mmol/L (98-108); Creatinine, Blood 0.54 mg/dL (0.40-1.00); Glomerular Filtration Rate >60 (60-); Glucose, Blood 205 mg/dL (70-99); Magnesium, Blood 1.5 mg/dL (1.6-2.4); Phosphorus, Blood 1.2 mg/dL (2.5-4.9); Potassium, Blood 3.9 mmol/L (3.5-5.5); Sodium, Blood 142 mmol/L (136-145)
[2020-06-21 05:48] LABS: Albumin, Blood 2.4 g/dL (3.4-5.0); Anion Gap 5 mmol/L (6-16); Beta-hydroxybutyrate 2.3 mg/dL (0.2-2.8); Blood Urea Nitrogen 15 mg/dL (8-24); Bun/Creatinine Ratio 31.1 (12.0-20.0); CO2, Blood 20 mmol/L (21-32); Chloride, Blood 113 mmol/L (98-108); Creatinine, Blood 0.48 mg/dL (0.40-1.00); Glomerular Filtration Rate >60 (60-); Glucose, Blood 332 mg/dL (70-99); Phosphorus, Blood 1.9 mg/dL (2.5-4.9); Potassium, Blood 4.7 mmol/L (3.5-5.5); Sodium, Blood 138 mmol/L (136-145)
--- NOTE | 2020-06-21 06:47 | NUR ---
SHIFT SUMMARY PT REMAINS ALERT AND ORIENTED. SHE HAS CALMED DOWN SIGNIFICANTLY POST ATIVAN, BUT STILL RESTLESS. HAS OCCASIONAL DRY HEAVES, TREATED c PRN ANTI-EMETICS. INSULIN GTT TITRATED, CURRENTLY @ 7UNITS/HR. LEFT LOWER FOOT WOUND DRESSING CHANGED, CLEANSED WITH WOUND CLEANSER, HYDRO-GEL AND NON-ADHERENT PAD PLACED. NOTIFIED DR DANIELSON OF THE CONDITION OF THE WOUND, ADVISED TO RELAY MESSAGE TO DAY NURSE FOR POTENTIAL SURGICAL CONSULT. PT ADMITTED TO NOT FOLLOWING THROUGH WITH FOLLOW-UP WOUND CARE TREATMENT. WILL CONITNUE TO MONITOR UNTIL SHIFT CHANGE. REPORT TO ONCOMING NURSE.
--- NOTE | 2020-06-21 07:45 | NUR ---
ASSUMED CARE BEDSIDE REPORT RECIEVED. PT IS LETHARGIC, BUT AWAKENS TO VERBAL STIMULI. PT FOLLOWS SOME DIRECTIONS. PT WITH PERIODS OF NAUSEA AND VOMITING, BUT REQUESTS WATER AND SODA. INSULIN GTT INFUSING AT 7 UNITS/HR AND D5 1/2 NS WITH 20 MEQ KCL AT 150 ML/HR. POWERGLIDE TO MJ C/D/I. PT UP TO BSC TO VOID. PT WITH RECENT AMPUTATIONS TO TOES ON LEFT FOOT. WOUNDS ARE DRESSED WITH AREAS OF DRAINAGE NOTED TO DRESSING. PEDAL PULSES PRESENT. WILL CONTINUE TO MONITOR.
[2020-06-21 10:48] LABS: EOSINOPHILS PERCENT AUTO 0 % (0-6); Hemoglobin 8.9 g/dL (11.5-16.0); IMMATURE GRAN ABSOLUTE AUTO 0.21 K/mm3 (0.00-0.10); IMMATURE GRAN PERCENT AUTO 1 % (0-1); MONOCYTES PERCENT AUTO 5 % (4-13); Mean Platelet Volume 9.3 fL (9.1-12.4); RDW Coefficient Variation 13.4 % (11.7-14.2)
[2020-06-21 10:57] LABS: BASOPHILS ABSOLUTE AUTO 0.07 K/mm3 (0.00-0.23); BASOPHILS PERCENT AUTO 0 % (0-2); EOSINOPHILS ABSOLUTE AUTO 0.01 K/mm3 (0.00-0.68); Hematocrit 27.1 % (33.0-51.0); LYMPHOCYTES ABSOLUTE AUTO 2.93 K/mm3 (0.84-5.20); LYMPHOCYTES PERCENT AUTO 12 % (21-46); MONOCYTES ABSOLUTE AUTO 1.22 K/mm3 (0.16-1.47); Mean Corpuscular HGB 26.2 pg (26.0-34.0); Mean Corpuscular HGB Conc 32.8 g/dL (31.5-36.5); NEUTROPHILS ABSOLUTE AUTO 20.72 K/mm3 (1.96-9.15); NEUTROPHILS PERCENT AUTO 83 % (41-73); Platelet Count 456 K/mm3 (150-400); RDW Standard Deviation 38.7 fL (35.1-46.3); White Blood Cell Count 25.16 K/mm3 (4.00-11.30)
[2020-06-21 11:11] LABS: Mean Corpuscular Volume 80 fL (80-100)
[2020-06-21 11:12] LABS: Alanine Aminotransfer (ALT/SGP 12 U/L (12-78); Albumin, Blood 2.6 g/dL (3.4-5.0); Albumin/Globulin Ratio 0.7 (0.8-1.8); Alk Phos 124 U/L (50-136); Anion Gap 4 mmol/L (6-16); Aspartate Aminotrans (AST/SGOT 7 U/L (12-37); Bilirubin, Total 0.3 mg/dL (0.1-1.0); Blood Urea Nitrogen 10 mg/dL (8-24); Bun/Creatinine Ratio 26.6 (12.0-20.0); CO2, Blood 22 mmol/L (21-32); Calcium, Blood 7.4 mg/dL (8.5-10.1); Chloride, Blood 111 mmol/L (98-108); Creatinine, Blood 0.38 mg/dL (0.40-1.00); Globulin, Blood 3.7 g/dL (2.2-4.0); Glomerular Filtration Rate >60 (60-); Glucose, Blood 183 mg/dL (70-99); Potassium, Blood 3.3 mmol/L (3.5-5.5); Sodium, Blood 137 mmol/L (136-145); Total Protein, Blood 6.3 g/dL (6.4-8.2)
--- NOTE | 2020-06-21 16:35 | NUR ---
TRANSFER TO SURGICAL REPORT CALLED VIA PHONE. PT TAKEN TO ROOM 230 VIA BED WITH HORTICULTURALIST. ALL PT MEDS AND BELONGINGS TAKEN WITH PT.
--- NOTE | 2020-06-21 18:41 | NUR ---
ASSUMED CARE OF PT AT APROX [address] GOODWIN IN TO SEE PT FOR NON-HEALING AMPUTATION SITES L FOOT, RECOMENDS ORTHO CONSULT FOR BKA. PT TEARFUL AND ANXIOUS REGARDING THIS NEWS, DR CORONA NOTIFIED AND NEW ORDER FOR 1MG ATIVAN OBTAINED AND GIVEN WITH GOOD RESULTS. NPO AT MIDNIGHT, IV ABX.
[2020-06-22 05:18] LABS: Influenza A, PCR NEGATIVE (NEGATIVE); Influenza B, PCR NEGATIVE (NEGATIVE); Resp Syncytial Virus, PCR NEGATIVE (NEGATIVE); SARS-Cov-2 (COVID-19) PCR, MMC NEGATIVE (NEGATIVE)
--- NOTE | 2020-06-22 06:18 | NUR ---
SHIFT SUMMARY PT VERY ANXIOUS THIS SHIFT. NPO FOR POSSIBLE PROCEDURE. DISCOMFORT CONTROLLED WITH TYLENOL + ROXICODONE X1. NO NAUSEA/EMESIS. DRESSING TO LLE C/D/I. PT REPORTING INCREASED ANXIETY THIS SHIFT R/T POSSIBLE PROCEDURE, DECREASED WITH REASSURANCE + EDUCATION. SURGICAL PACKET ON FRONT OF CHART, COVID SWAB COMPLETE. PT RESTING WELL AT THIS TIME WITH CALL LIGHT IN REACH.
--- NOTE | 2020-06-22 07:40 | NUR ---
PT TEARFUL, ANXIOUS THIS AM DURING ASSESSMENT OVER PLANS FOR BKA TODAY. PT MEDICATED WITH 1MG ATIVAN BY OWEN RN AT APROX 0630-PT STATES IT IS NOT WORKING THAT WELL. PT GIVEN WARM BLANKET AND EDUCATED/ENCOURAGED DEEP BREATHING TO HELP RELAX. PT IS RECEPTIVE AND COOPERATIVE WITH THIS BUT REMAINS TEARFUL AND ANXIOUS.
[2020-06-22 08:59] LABS: BASOPHILS ABSOLUTE AUTO 0.03 K/mm3 (0.00-0.23); BASOPHILS PERCENT AUTO 0 % (0-2); EOSINOPHILS ABSOLUTE AUTO 0.02 K/mm3 (0.00-0.68); EOSINOPHILS PERCENT AUTO 0 % (0-6); Hematocrit 24.8 % (33.0-51.0); IMMATURE GRAN ABSOLUTE AUTO 0.03 K/mm3 (0.00-0.10); IMMATURE GRAN PERCENT AUTO 0 % (0-1); LYMPHOCYTES ABSOLUTE AUTO 2.88 K/mm3 (0.84-5.20); LYMPHOCYTES PERCENT AUTO 24 % (21-46); MONOCYTES ABSOLUTE AUTO 0.87 K/mm3 (0.16-1.47); MONOCYTES PERCENT AUTO 7 % (4-13); Mean Corpuscular HGB 26.4 pg (26.0-34.0); Mean Corpuscular HGB Conc 32.3 g/dL (31.5-36.5); Mean Corpuscular Volume 82 fL (80-100); Mean Platelet Volume 9.7 fL (9.1-12.4); NEUTROPHILS ABSOLUTE AUTO 8.01 K/mm3 (1.96-9.15); NEUTROPHILS PERCENT AUTO 68 % (41-73); Platelet Count 352 K/mm3 (150-400); RDW Coefficient Variation 14.4 % (11.7-14.2); RDW Standard Deviation 42.5 fL (35.1-46.3); Red Blood Cell Count 3.03 M/mm3 (3.80-5.20); White Blood Cell Count 11.84 K/mm3 (4.00-11.30)
[2020-06-22 09:15] LABS: Anion Gap 5 mmol/L (6-16); Blood Urea Nitrogen 11 mg/dL (8-24); CO2, Blood 24 mmol/L (21-32); Calcium, Blood 8.1 mg/dL (8.5-10.1); Chloride, Blood 113 mmol/L (98-108); Creatinine, Blood 0.52 mg/dL (0.40-1.00); Glomerular Filtration Rate >60 (60-); Glucose, Blood 171 mg/dL (70-99); Potassium, Blood 3.1 mmol/L (3.5-5.5); Sodium, Blood 142 mmol/L (136-145)
[2020-06-22 11:14] LABS: C-REACTIVE PROTEIN, EXT RANGE <0.290 mg/dL (0.000-0.300)
--- NOTE | 2020-06-22 13:31 | NUR ---
PT TO OR AT APROX 1331.
--- NOTE | 2020-06-22 13:54 | NUR ---
PATIENT VERY TEARFUL CRYING NEEDING REASSURANCE. UPSET BECAUSE LOSING HER LEG.
--- NOTE | 2020-06-22 15:09 | NUR ---
06/22/20 1509 Dameon Moreno PATIENT ON SCHEDULED ANTIBIOTICS
--- NOTE | 2020-06-22 19:26 | NUR ---
SHIFT SUMMARY PT ARRIVED BACK TO THE UNIT FROM OR AT APROX 1600 POD 0 L BKA, DRESSING C/D/I. PT CRYING, APPEARS RESTLESS AND PAINFUL, MEDICATED PER EMAR FOR PAIN AND ANXIETY. ADVANCED DIET TO REGULAR, TOLERATING WITH NO N/V. PLAN TO CONTINUE IV ABX.
--- NOTE | 2020-06-23 06:03 | NUR ---
SHIFT SUMMARY: PT POD#1 FOR LEFT BKA. L STUMP ELEVATED ON MULTIPLE PILLOWS WITH STUMP SOCK IN PLACE. DRESSING C/D/I. PT MEDICATED WITH 1MG DILAUDID Q2 AND 5MG OXY Q6 PER EMAR. PT TEARFUL THROUGHOUT NIGHT DUE TO SEVERE PHANTOM PAIN. CALL PLACED TO HOSPITALIST X2. NO NEW ORDERS. PT ABLE TO STAND/PIVOT TO BSC WITH SBA. VOIDING WELL. MEGAN ADA DIET. DENIES N/V. COVERED WITH INSULIN PER SS AND LONG ACTING INSULIN. IVF AND ABX INFUSING PER ORDERS. PT UNABLE TO SLEEP THIS SHIFT.
[2020-06-23 09:25] LABS: BASOPHILS ABSOLUTE AUTO 0.02 K/mm3 (0.00-0.23); BASOPHILS PERCENT AUTO 0 % (0-2); EOSINOPHILS ABSOLUTE AUTO 0.02 K/mm3 (0.00-0.68); EOSINOPHILS PERCENT AUTO 0 % (0-6); Hematocrit 23.5 % (33.0-51.0); Hemoglobin 7.4 g/dL (11.5-16.0); IMMATURE GRAN ABSOLUTE AUTO 0.05 K/mm3 (0.00-0.10); IMMATURE GRAN PERCENT AUTO 0 % (0-1); LYMPHOCYTES ABSOLUTE AUTO 4.03 K/mm3 (0.84-5.20); LYMPHOCYTES PERCENT AUTO 34 % (21-46); MONOCYTES ABSOLUTE AUTO 1.02 K/mm3 (0.16-1.47); MONOCYTES PERCENT AUTO 9 % (4-13); Mean Corpuscular HGB Conc 31.5 g/dL (31.5-36.5); Mean Corpuscular Volume 83 fL (80-100); Mean Platelet Volume 9.7 fL (9.1-12.4); NEUTROPHILS ABSOLUTE AUTO 6.81 K/mm3 (1.96-9.15); NEUTROPHILS PERCENT AUTO 57 % (41-73); Platelet Count 326 K/mm3 (150-400); RDW Coefficient Variation 14.6 % (11.7-14.2); RDW Standard Deviation 43.8 fL (35.1-46.3); Red Blood Cell Count 2.85 M/mm3 (3.80-5.20); White Blood Cell Count 11.95 K/mm3 (4.00-11.30)
[2020-06-23 09:41] LABS: Albumin, Blood 2.3 g/dL (3.4-5.0); Anion Gap 6 mmol/L (6-16); Blood Urea Nitrogen 13 mg/dL (8-24); Bun/Creatinine Ratio 24.8 (12.0-20.0); CO2, Blood 25 mmol/L (21-32); Calcium, Blood 7.9 mg/dL (8.5-10.1); Chloride, Blood 110 mmol/L (98-108); Creatinine, Blood 0.52 mg/dL (0.40-1.00); Glomerular Filtration Rate >60 (60-); Glucose, Blood 172 mg/dL (70-99); Phosphorus, Blood 2.1 mg/dL (2.5-4.9); Potassium, Blood 3.7 mmol/L (3.5-5.5); Sodium, Blood 141 mmol/L (136-145)
--- NOTE | 2020-06-23 16:19 | NUR ---
SHIFT SUMMARY MEDICATED WITH DILAUDID 1MG Q2 AND OXYCODONE Q6 FOR PAIN CONTROL. PATIENT TEARFUL. 1 PERSON ASSIST TO BSC AND RECLINER CHAIR. STUMP ELEVATED ON 2 PILLOWS WHILE IN BED. ICE TO STUMP PRN TO HELP WITH PAIN AND SWELLING. PATIENT COOPERATIVE WITH CARE TODAY. CONTINUE IV ABX ORDERED. CALL LIGHT WITHIN PATIENT REACH.
[2020-06-24 04:38] LABS: BASOPHILS ABSOLUTE AUTO 0.03 K/mm3 (0.00-0.23); BASOPHILS PERCENT AUTO 0 % (0-2); EOSINOPHILS ABSOLUTE AUTO 0.04 K/mm3 (0.00-0.68); EOSINOPHILS PERCENT AUTO 1 % (0-6); Hematocrit 22.9 % (33.0-51.0); Hemoglobin 6.9 g/dL (11.5-16.0); IMMATURE GRAN ABSOLUTE AUTO 0.04 K/mm3 (0.00-0.10); IMMATURE GRAN PERCENT AUTO 1 % (0-1); LYMPHOCYTES PERCENT AUTO 32 % (21-46); MONOCYTES ABSOLUTE AUTO 0.75 K/mm3 (0.16-1.47); MONOCYTES PERCENT AUTO 9 % (4-13); Mean Corpuscular HGB 25.7 pg (26.0-34.0); Mean Corpuscular HGB Conc 30.1 g/dL (31.5-36.5); Mean Corpuscular Volume 85 fL (80-100); Mean Platelet Volume 10.3 fL (9.1-12.4); NEUTROPHILS ABSOLUTE AUTO 4.69 K/mm3 (1.96-9.15); NEUTROPHILS PERCENT AUTO 58 % (41-73); Platelet Count 297 K/mm3 (150-400); RDW Coefficient Variation 14.9 % (11.7-14.2); RDW Standard Deviation 45.7 fL (35.1-46.3); Red Blood Cell Count 2.68 M/mm3 (3.80-5.20); White Blood Cell Count 8.15 K/mm3 (4.00-11.30)
[2020-06-24 04:56] LABS: Anion Gap 6 mmol/L (6-16); Blood Urea Nitrogen 17 mg/dL (8-24); Bun/Creatinine Ratio 29.2 (12.0-20.0); CO2, Blood 26 mmol/L (21-32); Calcium, Blood 7.9 mg/dL (8.5-10.1); Chloride, Blood 110 mmol/L (98-108); Creatinine, Blood 0.58 mg/dL (0.40-1.00); Glomerular Filtration Rate >60 (60-); Glucose, Blood 90 mg/dL (70-99); Potassium, Blood 3.7 mmol/L (3.5-5.5); Sodium, Blood 142 mmol/L (136-145)
--- NOTE | 2020-06-24 05:42 | NUR ---
SHIFT SUMMARY LYING IN SEMI FOWLERS WITH EYES CLOSED, HAS RESTED WELL THIS SHIFT AFTER BEING GIVEN PAIN MEDS X4 PER PT REQUEST. NO SIGNIFICANT CHANGES NOTED THIS SHIFT. REMAINS AAO X4, LUNA, FAC. RESPIRATIONS EVEN AND UNLABORED ON ROOM AIR, ABLE TO MAINTAIN SAT >90%. LEFT UPPER ARM POWERGLIDE IS PATENT, FLUSING WITH EASE THROUGHOUT SHIFT WHILE INFUSING NS AT TKO. GOOD BLOOD RETURN NOTED, AM LABS DRAWN FROM ACCESS. SBA IN ROOM WHEN SHE CALLS. CURRENTLY DENIES PAIN, DISCOMFORT, OR FURTHER NEEDS. SAFETY MEASURES IN PLACE. WILL CONTINUE TO MONITOR.
[2020-06-24 11:52] LABS: Vancomycin, Trough 15.1 ug/mL (5.0-10.0)
--- NOTE | 2020-06-24 16:22 | NUR ---
SHIFT SUMMARY PAIN CONTROLLED WITH IV DILAUDID. IV ATIVAN GIVEN THIS MORNING FOR ANXIETY. VSS. PATIENT RECEIVED 1 UNIT PRBC TODAY. PATIENT IS A ONE PERSON ASSIST TO THE WHEELCHAIR AND BSC. PATIENT MOVED TO BIGGER ROOM WITH A WINDOW TO TRY TO HELP ALLEVIATE SOME ANXIETY. DRESSING TO LEFT STUMP CDI. CALL LIGHT WITHIN PATIENT REACH.
[2020-06-24 17:37] LABS: Hematocrit 27.8 % (33.0-51.0); Hemoglobin 8.7 g/dL (11.5-16.0)
[2020-06-25 04:23] LABS: BASOPHILS ABSOLUTE AUTO 0.02 K/mm3 (0.00-0.23); BASOPHILS PERCENT AUTO 0 % (0-2); EOSINOPHILS ABSOLUTE AUTO 0.13 K/mm3 (0.00-0.68); EOSINOPHILS PERCENT AUTO 2 % (0-6); Hematocrit 25.3 % (33.0-51.0); Hemoglobin 8.1 g/dL (11.5-16.0); IMMATURE GRAN ABSOLUTE AUTO 0.03 K/mm3 (0.00-0.10); IMMATURE GRAN PERCENT AUTO 0 % (0-1); LYMPHOCYTES ABSOLUTE AUTO 3.31 K/mm3 (0.84-5.20); LYMPHOCYTES PERCENT AUTO 38 % (21-46); MONOCYTES PERCENT AUTO 10 % (4-13); Mean Corpuscular HGB 27.6 pg (26.0-34.0); Mean Corpuscular Volume 86 fL (80-100); Mean Platelet Volume 10.2 fL (9.1-12.4); NEUTROPHILS ABSOLUTE AUTO 4.44 K/mm3 (1.96-9.15); NEUTROPHILS PERCENT AUTO 50 % (41-73); Platelet Count 298 K/mm3 (150-400); RDW Standard Deviation 47.2 fL (35.1-46.3); Red Blood Cell Count 2.93 M/mm3 (3.80-5.20); White Blood Cell Count 8.83 K/mm3 (4.00-11.30)
[2020-06-25 04:39] LABS: Anion Gap 4 mmol/L (6-16); Blood Urea Nitrogen 16 mg/dL (8-24); Bun/Creatinine Ratio 28.8 (12.0-20.0); CO2, Blood 29 mmol/L (21-32); Calcium, Blood 7.9 mg/dL (8.5-10.1); Chloride, Blood 109 mmol/L (98-108); Creatinine, Blood 0.56 mg/dL (0.40-1.00); Glomerular Filtration Rate >60 (60-); Glucose, Blood 170 mg/dL (70-99); Potassium, Blood 3.8 mmol/L (3.5-5.5); Sodium, Blood 142 mmol/L (136-145)
--- NOTE | 2020-06-25 05:53 | NUR ---
SHIFT SUMMARY LYING IN SEMI FOWLERS WITH EYES CLOSED, HAS RESTED WELL THIS SHIFT AFTER BEING GIVEN PAIN MEDS PER MD ORDERS AVAILABLE. NO SIGNIFICANT CHANGES NOTED THIS SHIFT. REMAINS AAO X4, LUNA, FAC. RESPIRATIONS EVEN AND UNLABORED ON ROOM AIR, ABLE TO MAINTAIN SAT >90%. LEFT UPPER ARM POWERGLIDE IS PATENT, FLUSING WITH MANIPULATION THROUGHOUT SHIFT. GOOD BLOOD RETURN NOTED, AM LABS DRAWN FROM ACCESS. SBA IN ROOM WHEN SHE CALLS. CURRENTLY DENIES PAIN, DISCOMFORT, OR FURTHER NEEDS. SAFETY MEASURES IN PLACE. WILL CONTINUE TO MONITOR.
[2020-06-26 04:16] LABS: BASOPHILS ABSOLUTE AUTO 0.02 K/mm3 (0.00-0.23); BASOPHILS PERCENT AUTO 0 % (0-2); EOSINOPHILS ABSOLUTE AUTO 0.16 K/mm3 (0.00-0.68); EOSINOPHILS PERCENT AUTO 2 % (0-6); Hematocrit 26.5 % (33.0-51.0); IMMATURE GRAN ABSOLUTE AUTO 0.04 K/mm3 (0.00-0.10); IMMATURE GRAN PERCENT AUTO 0 % (0-1); LYMPHOCYTES PERCENT AUTO 29 % (21-46); MONOCYTES ABSOLUTE AUTO 0.87 K/mm3 (0.16-1.47); MONOCYTES PERCENT AUTO 9 % (4-13); Mean Corpuscular HGB 26.3 pg (26.0-34.0); Mean Corpuscular HGB Conc 30.2 g/dL (31.5-36.5); Mean Corpuscular Volume 87 fL (80-100); Mean Platelet Volume 10.5 fL (9.1-12.4); NEUTROPHILS PERCENT AUTO 60 % (41-73); Platelet Count 363 K/mm3 (150-400); RDW Coefficient Variation 15.1 % (11.7-14.2); RDW Standard Deviation 47.8 fL (35.1-46.3); Red Blood Cell Count 3.04 M/mm3 (3.80-5.20); White Blood Cell Count 9.49 K/mm3 (4.00-11.30)
--- NOTE | 2020-06-26 04:28 | NUR ---
SHIFT SUMMARY: PT APPEARS TO BE FEELING BETTER THIS MORNING AFTER GETTING SOME REST. S/P LEFT BKA. STUMP SOCK WNL AND ELEVATED MOST OF NIGHT. PT TEARFUL IN BEGINNING OF SHIFT. REPORTS FEELING "PUFFY" ALL OVER. PT OUT OF ROOM IN HALLWAY VIA WHEELCHAIR. TRANSFERING WITH SBA. PAIN BEING MANAGED WITH TORADOL, TYLENOL, OXY AND DILAUDID PER EMAR. PLAN FOR DISCHARGE TODAY.
[2020-06-26 04:37] LABS: Anion Gap 5 mmol/L (6-16); Blood Urea Nitrogen 15 mg/dL (8-24); Bun/Creatinine Ratio 28.5 (12.0-20.0); CO2, Blood 29 mmol/L (21-32); Calcium, Blood 8.1 mg/dL (8.5-10.1); Chloride, Blood 108 mmol/L (98-108); Creatinine, Blood 0.53 mg/dL (0.40-1.00); Glomerular Filtration Rate >60 (60-); Glucose, Blood 283 mg/dL (70-99); Potassium, Blood 4.4 mmol/L (3.5-5.5); Sodium, Blood 142 mmol/L (136-145)
[2020-06-26] MEDS ORDERED: AMOCLA500 PO (10:59)
[2020-06-26] MEDS ORDERED: OXAYDO5 M1 PO (11:03)
--- NOTE | 2020-06-26 11:58 | NUR ---
DISCHARGE PT DISCHARGED VIA WHEELCHAIR WITH DAUGHTER AT 1145. DISCHARGE INSTRUCTIONS GONE OVER WITH PATIENT. WOUND CARE SUPPLIES SENT WITH PATIENT, INSTRUCTIONS FOR CHANGING DRESSING GONE OVER WITH PATIENT AND GRANDDAUGHTER WHO SHE STATED WOULD BE HELPING HER. DRESSING CDI AT TIME OF DISCHARGE. WENT OVER IMPORTANCE OF FALL PREVENTION WITH PATIENT AND NEED TO WEAR NON SKID SOCKS OR SHOE AT ALL TIMES WHILE AMBULATING. SENT PATIENT WITH EXTRA NON SKID SOCKS. WRITTEN PRESCRIPTION SENT WITH PATIENT AND OTHERS FAXED TO PHARMACY. ALL BELONGINGS WITH PATIENT. NO FURTHER QUESTIONS AT THIS TIME. POWERGLIDE REMOVED.
== END 2020-06-26 11:57 | disposition home or self-care (01) | DRG 856 ==
LOC: ER 14:44 → ERHOLD 18:29 → ICUW 18:29 → SURS 18:29 → ICUW 20:23 → SURS 06-21 16:43
PROVIDERS: Emergency Medicine; Internal Medicine; Orthopaedic Surgery; Pharmacist; Pharmacist Pharmacotherapy; Student in an Organized Health Care Education/Training Program; ADMIT Internal Medicine
PROC: 0Y6J0Z3 Detachment at Left Lower Leg, Low, Open Approach (ICD-10-PCS; principal; 2020-06-22 14:45)
DX: T81.49XA Infection following a procedure, other surgical site, initial encounter (principal); A41.9 Sepsis, unspecified organism; E10.10 Type 1 diabetes mellitus with ketoacidosis without coma; M86.9 Osteomyelitis, unspecified; T81.44XA Sepsis following a procedure, initial encounter; G40.909 Epilepsy, unspecified, not intractable, without status epilepticus; E10.40 Type 1 diabetes mellitus with diabetic neuropathy, unspecified; F17.210 Nicotine dependence, cigarettes, uncomplicated; Z89.432 Acquired absence of left foot; Z89.431 Acquired absence of right foot; G43.909 Migraine, unspecified, not intractable, without status migrainosus; F15.10 Other stimulant abuse, uncomplicated; F41.8 Other specified anxiety disorders; G54.6 Phantom limb syndrome with pain; E10.628 Type 1 diabetes mellitus with other skin complications; E87.6 Hypokalemia
CPT/HCPCS: 0241U; 36430; 73630; 80048; 80053; 80069; 80202; 81025; 82010; 82803; 82947; 83690; 83735; 85014; 85018; 85025; 85651; 86140; 86850; 86900; 86901; 86923; 88307; 93005; 93010; 96361; 96365; 96375; 96376; 97110; 97161; 97166; 97530; 99285-25; A9270; C1751; J0171; J0295; J1100; J1170; J1650; J1815; J1885; J2060; J2250; J2405; J2550; J2704; J3010; J3370; J3475; J3480; J7030; J7040; J7060; J7120; P9016

== ENCOUNTER 2020-07-04 10:43 | Emergency (ER) | payer OTHER ==
[~2020-07-04] VITALS: Ht 172.7 cm; Wt 71.2 kg
[~2020-07-04 10:43] MED LIST changes: +AMOCLA500 PO
== END 2020-07-04 15:31 | disposition home or self-care (01) ==
LOC: ER 10:43
DX: S16.1XXA Strain of muscle, fascia and tendon at neck level, initial encounter (principal); S80.12XA Contusion of left lower leg, initial encounter; E10.40 Type 1 diabetes mellitus with diabetic neuropathy, unspecified; I10 Essential (primary) hypertension; K21.9 Gastro-esophageal reflux disease without esophagitis; G40.909 Epilepsy, unspecified, not intractable, without status epilepticus; F17.210 Nicotine dependence, cigarettes, uncomplicated; Z79.4 Long term (current) use of insulin; Z79.899 Other long term (current) drug therapy; Z88.5 Allergy status to narcotic agent; Z88.1 Allergy status to other antibiotic agents; W05.1XXA Fall from non-moving nonmotorized scooter, initial encounter
CPT/HCPCS: 72040; 73560-LT; 99283-25; A9270

== ENCOUNTER 2020-07-23 22:22 | Inpatient (IN) | payer OTHER ==
[~2020-07-23] VITALS: Ht 172.7 cm; Wt 64.5 kg
[2020-07-23 23:44] LABS: BASOPHILS ABSOLUTE AUTO 0.04 K/mm3 (0.00-0.23); BASOPHILS PERCENT AUTO 1 % (0-2); EOSINOPHILS ABSOLUTE AUTO 0.08 K/mm3 (0.00-0.68); EOSINOPHILS PERCENT AUTO 1 % (0-6); Hematocrit 33.1 % (33.0-51.0); Hemoglobin 10.8 g/dL (11.5-16.0); IMMATURE GRAN ABSOLUTE AUTO 0.01 K/mm3 (0.00-0.10); IMMATURE GRAN PERCENT AUTO 0 % (0-1); LYMPHOCYTES ABSOLUTE AUTO 3.58 K/mm3 (0.84-5.20); LYMPHOCYTES PERCENT AUTO 46 % (21-46); MONOCYTES ABSOLUTE AUTO 0.55 K/mm3 (0.16-1.47); MONOCYTES PERCENT AUTO 7 % (4-13); Mean Corpuscular HGB 26.8 pg (26.0-34.0); Mean Corpuscular HGB Conc 32.6 g/dL (31.5-36.5); Mean Corpuscular Volume 82 fL (80-100); Mean Platelet Volume 9.8 fL (9.1-12.4); NEUTROPHILS PERCENT AUTO 46 % (41-73); Platelet Count 426 K/mm3 (150-400); RDW Coefficient Variation 15.3 % (11.7-14.2); RDW Standard Deviation 46.2 fL (35.1-46.3); Red Blood Cell Count 4.03 M/mm3 (3.80-5.20); White Blood Cell Count 7.86 K/mm3 (4.00-11.30)
[2020-07-24 00:01] LABS: Alanine Aminotransfer (ALT/SGP 19 U/L (12-78); Albumin, Blood 3.1 g/dL (3.4-5.0); Albumin/Globulin Ratio 0.8 (0.8-1.8); Alk Phos 109 U/L (50-136); Anion Gap 6 mmol/L (6-16); Aspartate Aminotrans (AST/SGOT 4 U/L (12-37); Bilirubin, Total 0.2 mg/dL (0.1-1.0); Blood Urea Nitrogen 22 mg/dL (8-24); Bun/Creatinine Ratio 27.6 (12.0-20.0); CO2, Blood 27 mmol/L (21-32); Calcium, Blood 9.4 mg/dL (8.5-10.1); Chloride, Blood 101 mmol/L (98-108); Globulin, Blood 3.9 g/dL (2.2-4.0); Glomerular Filtration Rate >60 (60-); Glucose, Blood 436 mg/dL (70-99); Sodium, Blood 134 mmol/L (136-145)
--- NOTE | 2020-07-24 18:09 | NUR ---
SHIFT SUMMARY PT AxOx4. COOPERATIVE WITH CARE. UPSET AND TEARFUL ABOUT PERSISTENT LLE PAIN. MEDICATED PER EMAR. PT ON BEDREST. HX OF RECENT FALLS ON LLE. S/O IN THE ROOM PROVIDING COMFORT. LLE AMPUTATION STUMP WOUND HAS C/D/I DRESSING IN PLACE. DRESSING WAS PLACED IN ED PRIOR TO ADMIT. PT TRANSFERRED TO MEDICAL FLOOR FROM ED AT APPROX 1400. VITALS REVIEWED. PT RECENTLY MEDICATED FOR PAIN AND NAUSEA. DENIES ANY CURRENT NEEDS. CALL LIGHT IN REACH.
[2020-07-25 02:22] LABS: Vancomycin, Trough 13.1 ug/mL (5.0-10.0)
--- NOTE | 2020-07-25 04:47 | NUR ---
SHIFT SUMMARY HAS BEEN AWAKE AT INTERVALS WITH RESQUEST FOR PAIN AND NAUSEA MEDS - SEE MAR FOR DETAILS, IVF OF LR INFUSING AT 75 ML/HR WITH VANCOMYCIN INFUDING PER ORDERS. VANCO TROPH DRAWN. LEFT BKA DRESSING REINFORCED DUE TO SOME DRAINAGE. VSS. ISOLATION PRECAUTIONS MAINTAINED. CALL LIGHT IN REACH,
--- NOTE | 2020-07-25 19:14 | NUR ---
INTERACTION PATIENT IN HALLWAY STATING WANTS TO LEAVE HER ROOM AND GO AROUND THE HALLWAY. VISIBLY UPSET; VERY TEARFUL. PREV RN SPOKE TO ENGINE MONITOR, STATES OK LONG PATIENT DOES NOT LEAVE THIS FLOOR WHICH WILL END IN DISCHARGE. PATIENT AGREEABLE TO TERMS SET FORTH BY PREVIOUS RN.
--- NOTE | 2020-07-25 19:45 | NUR ---
PATIENT HAD BEEN GONE FROM ROOM FOR SOME TIME. HAD NOT VISIBLY SEEN PATIENT ON THIS FLOOR. IN THE HALLWAYS OR IN THE LOBBY AREA. THIS RN CALLED SECURITY TO SEE IF THEY COULD FIND PT ON THE [place]. STATED THEY WOULD TAKE A LOOK AND GIVE THIS RN A CALL BACK.
--- NOTE | 2020-07-25 19:50 | NUR ---
RECIEVED CALL BACK FROM SECURITY STATING PATIENT FOUND ON GROUND LEVEL IN [place] LOT BY THE REFLECTION POOL. WENT TO HUMAN RESOURCES BENEFITS SPECIALIST AND LET HER KNOW OF THE SITUATION. THE DECISION WAS MADE AT THAT TIME PATIENT WOULD BE DISCHARGED.
--- NOTE | 2020-07-25 19:57 | NUR ---
PATIENT CONDITION PRIOR TO LEAVING ROOM; STATED PREVIOUS PATIENT WAS VERY VISIBLY UPSET AND TEARFUL. UPON RETURN TO MEDICAL FLOOR; PATIENT APPEARED VERY SOMNOLENT.
--- NOTE | 2020-07-25 20:08 | NUR ---
DISCHARGED EXPLAINED REASON FOR DISCHARGE. AGREEABLE. IV'S REMOVED; ALL BELONGINGS BAGGED AND TAKEN WITH PATIENT. LEFT WITH BOYFRIEND IN WHEECHAIR.
--- NOTE | 2020-07-25 20:23 | NUR ---
summary, pt was cooperative with care for whole day, when friend showed up she asked if she could go out with him, I called the cn on the vocera and she quite clearly said the pt could not leave the rm so the pt agreed to stay, she was not happy but she stayed, the friend left and came back around 1800, this rn was working in the next room doing an admit and came out when at 1900 and found the pt in a wc being pushed by the friend about to leave the rm, asked what was happening they said they were waiting to talk to the cn about leaving, encouraged them to do so and went back to care for another pt, when the noc nurse came by to do bsr the pt and friend were still waiting for the cn, so the noc rn stayed with them and this rn sought out the cn, they said the pt could leave her room but she had to stay on the floor, informed the pt and friend that if what they needed was a change in scenery the cn said they could walk around on this floor but the pt could not change floors, enphasised that that meant not going down the stairs or elevators and that it was related to infection control, they agreed and said they would be back within the hour specified by the cn and they would stay on the third floor.
--- NOTE | 2020-07-29 22:42 | NUR ---
PT NOTES REVIEWED FOR CHARTING PURPOSES RE PT'S DISCHARGE CRISTELA
== END 2020-07-25 20:13 | disposition left against medical advice (07) | DRG 565 ==
LOC: ER 22:22 → ERHOLD 07-24 03:38 → MEDS 07-24 03:38
PROVIDERS: Pharmacist; Student in an Organized Health Care Education/Training Program; ADMIT Internal Medicine
DX: T87.44 Infection of amputation stump, left lower extremity (principal); M86.9 Osteomyelitis, unspecified; Z79.4 Long term (current) use of insulin; G40.909 Epilepsy, unspecified, not intractable, without status epilepticus; F17.210 Nicotine dependence, cigarettes, uncomplicated; Z89.421 Acquired absence of other right toe(s); Z89.411 Acquired absence of right great toe; F41.8 Other specified anxiety disorders; G43.909 Migraine, unspecified, not intractable, without status migrainosus; I10 Essential (primary) hypertension; G54.6 Phantom limb syndrome with pain; F15.10 Other stimulant abuse, uncomplicated; E10.40 Type 1 diabetes mellitus with diabetic neuropathy, unspecified; M60.9 Myositis, unspecified
CPT/HCPCS: 36415; 73701; 80053; 80202; 82947; 83605; 85025; 85651; 85730; 86140; 87040; 94640; 94760; 96374; 96375; 96376; 99285; A9270; C9113; J0744; J1650; J1956; J2405; J3010; J3370; J7120; Q9967

== ENCOUNTER 2020-07-27 16:50 | Inpatient (IN) | payer OTHER ==
[~2020-07-27] VITALS: Ht 172.7 cm; Wt 61.8 kg
[2020-07-27 18:00] LABS: BASOPHILS ABSOLUTE AUTO 0.04 K/mm3 (0.00-0.23); BASOPHILS PERCENT AUTO 1 % (0-2); EOSINOPHILS ABSOLUTE AUTO 0.05 K/mm3 (0.00-0.68); EOSINOPHILS PERCENT AUTO 1 % (0-6); Hematocrit 32.5 % (33.0-51.0); Hemoglobin 10.2 g/dL (11.5-16.0); IMMATURE GRAN ABSOLUTE AUTO 0.01 K/mm3 (0.00-0.10); IMMATURE GRAN PERCENT AUTO 0 % (0-1); LYMPHOCYTES ABSOLUTE AUTO 2.47 K/mm3 (0.84-5.20); LYMPHOCYTES PERCENT AUTO 47 % (21-46); MONOCYTES ABSOLUTE AUTO 0.35 K/mm3 (0.16-1.47); MONOCYTES PERCENT AUTO 7 % (4-13); Mean Corpuscular HGB 26.8 pg (26.0-34.0); Mean Corpuscular HGB Conc 31.4 g/dL (31.5-36.5); Mean Corpuscular Volume 86 fL (80-100); NEUTROPHILS ABSOLUTE AUTO 2.33 K/mm3 (1.96-9.15); NEUTROPHILS PERCENT AUTO 44 % (41-73); Platelet Count 428 K/mm3 (150-400); RDW Coefficient Variation 15.1 % (11.7-14.2); RDW Standard Deviation 47.3 fL (35.1-46.3); White Blood Cell Count 5.25 K/mm3 (4.00-11.30)
[2020-07-27 18:51] LABS: Alanine Aminotransfer (ALT/SGP 23 U/L (12-78); Albumin, Blood 3.3 g/dL (3.4-5.0); Albumin/Globulin Ratio 0.8 (0.8-1.8); Alk Phos 116 U/L (50-136); Anion Gap 6 mmol/L (6-16); Aspartate Aminotrans (AST/SGOT 14 U/L (12-37); Bilirubin, Total 0.1 mg/dL (0.1-1.0); Blood Urea Nitrogen 17 mg/dL (8-24); Bun/Creatinine Ratio 32.2 (12.0-20.0); CO2, Blood 27 mmol/L (21-32); Calcium, Blood 9.1 mg/dL (8.5-10.1); Chloride, Blood 97 mmol/L (98-108); Creatinine, Blood 0.53 mg/dL (0.40-1.00); Globulin, Blood 3.9 g/dL (2.2-4.0); Glomerular Filtration Rate >60 (60-); Glucose, Blood 681 mg/dL (70-99); Potassium, Blood 4.8 mmol/L (3.5-5.5); Sodium, Blood 130 mmol/L (136-145); Total Protein, Blood 7.2 g/dL (6.4-8.2)
[2020-07-27 22:50] LABS: Calcium, Ionized (POC) 1.21 mmol/L (1.10-1.46); Chloride (POC) 97 mmol/L (98-108); Creatinine (POC) 0.5 mg/dL (0.6-1.0); Glucose (ISTAT POC) 484 mg/dL (70-99); Hemoglobin (POC) 10.2 g/dL (12.0-16.0); Potassium (POC) 4.1 mmol/L (3.5-5.5); Sodium (POC) 130 mmol/L (135-148); Total CO2 (POC) 26 mmol/L (21-32)
[2020-07-28 03:16] LABS: Influenza A, PCR NEGATIVE (NEGATIVE); Influenza B, PCR NEGATIVE (NEGATIVE); Resp Syncytial Virus, PCR NEGATIVE (NEGATIVE); SARS-Cov-2 (COVID-19) PCR, MMC NEGATIVE (NEGATIVE)
[2020-07-28 04:10] LABS: BASOPHILS ABSOLUTE AUTO 0.04 K/mm3 (0.00-0.23); BASOPHILS PERCENT AUTO 1 % (0-2); EOSINOPHILS ABSOLUTE AUTO 0.09 K/mm3 (0.00-0.68); EOSINOPHILS PERCENT AUTO 2 % (0-6); Hematocrit 28.1 % (33.0-51.0); IMMATURE GRAN ABSOLUTE AUTO 0.01 K/mm3 (0.00-0.10); IMMATURE GRAN PERCENT AUTO 0 % (0-1); LYMPHOCYTES ABSOLUTE AUTO 3.02 K/mm3 (0.84-5.20); LYMPHOCYTES PERCENT AUTO 53 % (21-46); MONOCYTES ABSOLUTE AUTO 0.51 K/mm3 (0.16-1.47); MONOCYTES PERCENT AUTO 9 % (4-13); Mean Corpuscular HGB 26.8 pg (26.0-34.0); Mean Corpuscular Volume 84 fL (80-100); Mean Platelet Volume 9.6 fL (9.1-12.4); NEUTROPHILS ABSOLUTE AUTO 2.05 K/mm3 (1.96-9.15); NEUTROPHILS PERCENT AUTO 36 % (41-73); Platelet Count 344 K/mm3 (150-400); RDW Coefficient Variation 14.9 % (11.7-14.2); RDW Standard Deviation 45.1 fL (35.1-46.3); Red Blood Cell Count 3.36 M/mm3 (3.80-5.20); White Blood Cell Count 5.72 K/mm3 (4.00-11.30)
[2020-07-28 04:29] LABS: Alanine Aminotransfer (ALT/SGP 20 U/L (12-78); Albumin, Blood 2.6 g/dL (3.4-5.0); Albumin/Globulin Ratio 0.8 (0.8-1.8); Alk Phos 91 U/L (50-136); Anion Gap 5 mmol/L (6-16); Aspartate Aminotrans (AST/SGOT 8 U/L (12-37); Bilirubin, Total 0.1 mg/dL (0.1-1.0); Blood Urea Nitrogen 17 mg/dL (8-24); Bun/Creatinine Ratio 31.1 (12.0-20.0); CO2, Blood 28 mmol/L (21-32); Calcium, Blood 8.5 mg/dL (8.5-10.1); Chloride, Blood 106 mmol/L (98-108); Creatinine, Blood 0.55 mg/dL (0.40-1.00); Globulin, Blood 3.4 g/dL (2.2-4.0); Glomerular Filtration Rate >60 (60-); Glucose, Blood 245 mg/dL (70-99); Potassium, Blood 3.7 mmol/L (3.5-5.5); Sodium, Blood 139 mmol/L (136-145)
--- NOTE | 2020-07-28 06:00 | NUR ---
PT TO ICU 15 VIA [place] WITH ED RN @ 0000, PT ALERT AND ORIENTED x4, PLEASANT AND COOPERATIVE, REPORTS 9/10 PAIN TO LEFT LOWER EXT, STS IT FEELS ACHY AND LIKE THE MUSCLE IS CRAMPING. PRN FENTANYL ADMINISTERED, PT REPORTS FENTANYL DOES NOT WORK, NEW ORDER FOR MORPHINE PLACED. INSULIN GTT INF @ 4u/hr, SEE FLOWSHEET FOR TITRATIONS, INSULIN TURNED OFF @ APPROX 0200 AND LONG ACTING INSULIN ADMINISTERED AT 0230. O2 SATURATIONS> 90% ON RA, MONITOR SHOWS SINUS RHYTHM WITH HR 80'S-90'S, BP STABLE, PT AFEBRILE. LEFT LEG WITH RECENT BKA, WOUND STILL OPEN, SEE PHOTO ON FILE, EXTREMETY ELEVATED ON PILLOW PER PT REQUEST FOR PAIN RELEIF. CALL LIGHT WITHIN REACH, PT USING APPROPRIATELY.
--- NOTE | 2020-07-28 09:17 | NUR ---
ASSUMED CARE PT RESTING IN BED, WOKE EASILY AND ASKED FOR PAIN MEDICATION AND STARTED CRYING. PT HAS FENTANYL AVAILABLE, RECEIVED MORPHINE AT 0419. SBP IN THE 90S AND LOW 100S SO TALKED WITH PT AND GAVE TYLENOL AND HER MORNING MEDICATIONS. PT STATES SHE WAS TAKING OXY AT HOME, BUT THEN STARTED COMPLAINING THAT THEY DIDN'T GIVE HER ANYTHING WHEN SHE WAS DISCHARGED. EXPLAINED TO PT THAT WAS BECAUSE SHE LEFT AMA. PT SAYS SHE LEFT BECAUSE THE DOCTOR TOLD HER THAT THEY NEED TO AMPUTATE MORE OF HER LEG AND SHE GOT OVERWHELMED. SPENT TIME IN ROOM WITH PT PROVIDING EMOTIONAL SUPPORT. WHEN DR. GOODWIN ROUNDED ASKED ABOUT PAIN MANAGEMENT AND CONCERN ABOUT PT HAVING IV MOPRHINE AND FENTANYL ON THE JUL. DR. GOODWIN DISCUSSED PAIN OPTIONS WITH PT AND THEN ORDERED HYDROCODONE, GIVEN TO PT SOON AVAILABLE.
--- NOTE | 2020-07-28 09:23 | NUR ---
ON ROUNDS DR. GOODWIN ALSO GAVE OK FOR PT TO BE SURGICAL STATUS, NO TELE.
--- NOTE | 2020-07-28 11:07 | NUR ---
TRANSFER PT TRANSFERRED TO RM 362. REPORT GIVEN TO TEETEE VALDOVINOS ON MEDICAL FLOOR. PT ABLE TO TRANSFER HERSELF TO WHEELCHAIR AND THEN BACK TO BED UPON ARRIVAL TO ROOM. MEDICATED PT WITH MORPHINE BEFORE LEAVING AND PT WAS NAUSEOUS UPON ARRIVAL TO NEW ROOM. PT STATED THAT MORPINE TYPICALLY DOES CAUSE HER SOME NAUSEA. ALL BELONGINGS TRANSFERRED WITH PT. PT TOLERATED TRANSFER WELL.
--- NOTE | 2020-07-28 16:18 | NUR ---
PT BROUGHT FROM MEDICAL FLOOR TO PACU FOR PREOP. DR. Rand AND DR. KRAMER TO BEDSIDE FOR FOR PREEXAMINATION. CONSENTS COMPLETED.SIGNED BLOOD CONSENT IN THE CHART. BG CHECKED 150. DR. KRAMER NOTIFIED.
--- NOTE | 2020-07-28 17:43 | NUR ---
SHIFT SUMMARY- PT IS A/O, PLESANT AND COOPERATIVE. SHE TRANSFFERED FROM ICU THIS AFTERNOON. SHE IS NPO. ORTHO CONSULTED ON HER THIS AFTERNOON. SHE SLEPT FOR MOST OF HER TIME SO FAR THIS SHIFT. OR TOOK PT AT 1600 TO DAY SURGERY WHERE SHE IS CURRENTLY
[2020-07-29 05:12] LABS: BASOPHILS ABSOLUTE AUTO 0.03 K/mm3 (0.00-0.23); BASOPHILS PERCENT AUTO 0 % (0-2); EOSINOPHILS PERCENT AUTO 0 % (0-6); Hematocrit 29.6 % (33.0-51.0); Hemoglobin 9.2 g/dL (11.5-16.0); IMMATURE GRAN ABSOLUTE AUTO 0.01 K/mm3 (0.00-0.10); IMMATURE GRAN PERCENT AUTO 0 % (0-1); LYMPHOCYTES ABSOLUTE AUTO 1.53 K/mm3 (0.84-5.20); LYMPHOCYTES PERCENT AUTO 22 % (21-46); MONOCYTES ABSOLUTE AUTO 0.31 K/mm3 (0.16-1.47); MONOCYTES PERCENT AUTO 5 % (4-13); Mean Corpuscular HGB 26.6 pg (26.0-34.0); Mean Corpuscular HGB Conc 31.1 g/dL (31.5-36.5); Mean Corpuscular Volume 86 fL (80-100); Mean Platelet Volume 9.9 fL (9.1-12.4); NEUTROPHILS ABSOLUTE AUTO 4.94 K/mm3 (1.96-9.15); NEUTROPHILS PERCENT AUTO 73 % (41-73); Platelet Count 366 K/mm3 (150-400); RDW Standard Deviation 46.5 fL (35.1-46.3); Red Blood Cell Count 3.46 M/mm3 (3.80-5.20); White Blood Cell Count 6.82 K/mm3 (4.00-11.30)
[2020-07-29 06:01] LABS: Anion Gap 7 mmol/L (6-16); Blood Urea Nitrogen 18 mg/dL (8-24); Bun/Creatinine Ratio 28.3 (12.0-20.0); CO2, Blood 24 mmol/L (21-32); Calcium, Blood 7.8 mg/dL (8.5-10.1); Chloride, Blood 106 mmol/L (98-108); Creatinine, Blood 0.64 mg/dL (0.40-1.00); Glomerular Filtration Rate >60 (60-); Glucose, Blood 450 mg/dL (70-99); Potassium, Blood 4.1 mmol/L (3.5-5.5); Sodium, Blood 137 mmol/L (136-145)
--- NOTE | 2020-07-29 06:34 | NUR ---
SHIFT SUMMARY PT HAS DONE WELL SINCE POST I&D YESTERDAY. VITALS HAVE TRENDED AROUND PT BASELINE WITH POST OP VITAL CHECKS. WOUND VAC IN PLACE, PATENT WITH RED DRAINAGE. PT COMPLAINING OF PAIN IN HER LOWER EXT INTERMITTENTLY T/O SHIFT. PAIN RELIEVED WITH MORPHINE. DIET ADVANCED TOLERATED, SOME MILD NAUSEA THIS SHIFT THAT WAS RELIEVED WITH ZOFRAN. AFTER RECEIVING ZOFRAN SHE WAS ABLE TO EAT WITHOUT DIFFICULTY. IV ANTIBIOTICS CONTINUED PER ORDERS. NO ACUTE CHANGES OVERNIGHT. BED IN LOWEST POSITION, CALL LIGHT WITHIN REACH.
[2020-07-29 09:34] LABS: Vancomycin, Trough 12.2 ug/mL (5.0-10.0)
--- NOTE | 2020-07-29 17:44 | NUR ---
SHIFT SUMMARY- PT IS A/O, LYNDSAY AND CRISELDA. HELD BREAKFAST PER DUE TO HIGH BLOOD SUGAR THIS AM. SHE IS EATING AND DRINKING WELL. SHE TOOK A BED BATH THIS AFTERNOON. SHE IS RECIEVING PRN PAIN MEDICATION. SHE IS USING THE BSC. HER BED IS IN THE LOW POSITION AND CALL LIGHT IS WITHIN REACH.
--- NOTE | 2020-07-30 05:34 | NUR ---
SHIFT SUMMARY PT CONTINUES TO HAVE OFF AND ON INTERMITTENT PAIN IN HER LEFT LEG THAT IS RELIEVED WITH IV MORPHINE AND PERCOCET. PT HAS BEEN INDEPENDENT IN THE ROOM, AND IS ABLE TO PERFORM MOST ADLS. VITALS HAVE BEEN STABLE. BG STABLE. PT HAS BEEN COOPERATIVE WITH CARE. NO ACUTE CHANGES OVERNIGHT. WOUND VAC IS IN PLACE, PATENT AND DRAINING. BED IN LOWEST POSITION, CALL LIGHT WITHIN REACH.
[2020-07-30 06:36] LABS: Anion Gap 3 mmol/L (6-16); Blood Urea Nitrogen 17 mg/dL (8-24); Bun/Creatinine Ratio 32.2 (12.0-20.0); CO2, Blood 28 mmol/L (21-32); Calcium, Blood 8.1 mg/dL (8.5-10.1); Chloride, Blood 109 mmol/L (98-108); Creatinine, Blood 0.53 mg/dL (0.40-1.00); Glomerular Filtration Rate >60 (60-); Glucose, Blood 213 mg/dL (70-99); Potassium, Blood 3.7 mmol/L (3.5-5.5); Sodium, Blood 140 mmol/L (136-145)
--- NOTE | 2020-07-30 20:02 | NUR ---
SHIFT SUMMARY- PT HAD A ROUGH DAY TODAY WITH PAIN MANAGEMENT BEING AN ISSUE. A OT DOSE OF PAIN MEDICATION WAS GIVEN TODAY AT THE TIME OF WOUND VAC CHANGE. PO PAIN MEDICATION SWITCHED TO Q4 FROM Q6. PT IS CURRENTLY SITTING UP IN BED CALL LIGHT IN REACH, SHE DOES CALL APPROPRIATELY. BG AC/HS SUGARS HAVE BEEN IN A DECENT RANGE TODAY. PASSED ON TO NIGHT RN ABOUT THE PT BG 138 AND NO INTEREST IN FOOD AT LUNCH TIME. PER DR GOODWIN PT WAS NOT GIVEN 5 UNITS OF INSULIN BUT 2 UNITS WERE GIVEN, TO PREVENT A DROP IN THE PT BG. PT REFUSED THE PO LISINOPRIL HER BP WAS ON THE LOW SIDE. SHE STATED SHE DOES NOT TAKE IT VERY OFTEN AT HOME.
--- NOTE | 2020-07-31 06:08 | NUR ---
NURSERYMAN ASSISTANT SUMMARY NO ACUTE CHANGES THIS SHIFT. PT AAOX4 AND HAS BEEN PLEASANT, ANXIOUS AT TIMES BUT HAS BEEN COOPERATIVE WITH CARE. WOUND VAC DRESSING WAS CHANGED ON DAY SHIFT AND DRESSING LOOKS C/D/I WITH GOOD SUCTION. MEDICATED PT X2 WITH 4MG IV MORPHINE WITH GOOD PAIN RELIEF. VSS, WILL CONTINUE TO MONITOR.
[2020-07-31 09:07] LABS: BASOPHILS ABSOLUTE AUTO 0.02 K/mm3 (0.00-0.23); BASOPHILS PERCENT AUTO 0 % (0-2); EOSINOPHILS ABSOLUTE AUTO 0.09 K/mm3 (0.00-0.68); EOSINOPHILS PERCENT AUTO 2 % (0-6); Hematocrit 28.5 % (33.0-51.0); Hemoglobin 8.7 g/dL (11.5-16.0); IMMATURE GRAN ABSOLUTE AUTO 0.02 K/mm3 (0.00-0.10); IMMATURE GRAN PERCENT AUTO 0 % (0-1); LYMPHOCYTES ABSOLUTE AUTO 2.72 K/mm3 (0.84-5.20); LYMPHOCYTES PERCENT AUTO 46 % (21-46); MONOCYTES ABSOLUTE AUTO 0.66 K/mm3 (0.16-1.47); MONOCYTES PERCENT AUTO 11 % (4-13); Mean Corpuscular HGB 26.4 pg (26.0-34.0); Mean Corpuscular HGB Conc 30.5 g/dL (31.5-36.5); Mean Corpuscular Volume 87 fL (80-100); Mean Platelet Volume 9.7 fL (9.1-12.4); NEUTROPHILS ABSOLUTE AUTO 2.47 K/mm3 (1.96-9.15); NEUTROPHILS PERCENT AUTO 41 % (41-73); Platelet Count 326 K/mm3 (150-400); RDW Coefficient Variation 15.6 % (11.7-14.2); RDW Standard Deviation 49.1 fL (35.1-46.3); Red Blood Cell Count 3.29 M/mm3 (3.80-5.20); White Blood Cell Count 5.98 K/mm3 (4.00-11.30)
[2020-07-31 09:22] LABS: Anion Gap 4 mmol/L (6-16); Blood Urea Nitrogen 15 mg/dL (8-24); Bun/Creatinine Ratio 28.8 (12.0-20.0); CO2, Blood 29 mmol/L (21-32); Calcium, Blood 8.5 mg/dL (8.5-10.1); Chloride, Blood 108 mmol/L (98-108); Creatinine, Blood 0.52 mg/dL (0.40-1.00); Glomerular Filtration Rate >60 (60-); Glucose, Blood 97 mg/dL (70-99); Sodium, Blood 141 mmol/L (136-145)
[2020-07-31 09:25] LABS: Vancomycin, Trough 13.5 ug/mL (5.0-10.0)
--- NOTE | 2020-07-31 18:11 | NUR ---
PATIENT ALERT AND ORIENTED. MODIFIED INDEPENDENT IN ROOM. VITALS REMAIN STABLE AND WNL. CONTINUES ON IV ABX WITHOUT S/SX OF ADVERSE REACTIONS NOTED OR REPORTED. PATIENT CONTINUES TO HAVE ONGOING PAIN AND CALLS FOR PAIN MEDICATION REGULARLY. WOUND VAC TO L STUMP AND IS CDI AND SUCTION @ 120 PER ORDERS. NO ACUTE CHANGES TO REPORT OF AT THIS TIME.
--- NOTE | 2020-08-01 05:25 | NUR ---
BRICK AND TILE MAKING MACHINE OPERATOR SUMMARY NO ACUTE CHANGES THIS SHIFT. PT AAOX4 AND PLEASANT. MEDICATED FOR PAIN OF L STUMP X2 WITH IV MORPHINE. WOUND VAC DRESSING WNL, SCHEDULED TO BE CHANGED LATER TODAY. PT HAS BEEN ABLE TO REST OFF/ON THROUGH THE NIGHT. HAS REQUESTED A FEW SNACKS THROUGH THE NIGHT SINCE YESTERDAY MORNING PT'S AM CBG WAS IN THE 40'S. PT WAITING FOR SAFE DISCHARGE PLAN SINCE SHE WILL NEED SEVERAL WEEKS OF IV ABX. VSS, WILL CONTINUE TO MONITOR.
[2020-08-01 05:33] LABS: Anion Gap 3 mmol/L (6-16); Blood Urea Nitrogen 17 mg/dL (8-24); Bun/Creatinine Ratio 28.8 (12.0-20.0); CO2, Blood 30 mmol/L (21-32); Calcium, Blood 8.5 mg/dL (8.5-10.1); Chloride, Blood 109 mmol/L (98-108); Creatinine, Blood 0.59 mg/dL (0.40-1.00); Glomerular Filtration Rate >60 (60-); Glucose, Blood 123 mg/dL (70-99); Sodium, Blood 142 mmol/L (136-145)
--- NOTE | 2020-08-01 17:17 | NUR ---
SUMMARY PT SITTING UP IN BED WATCHING TV, PT HAS BEEN PLEASANT AND COOPERATIVE WITH CARE, PT MED PER EMAR FOR PAIN, WOUND VAC CHANGED BY THE TEACHER ASSISTANT THIS AFTERNOON, PT MEGAN WELL, FRIEND IN TO VISIT, PT UP WITH THERAPY, VSS, NO COMPLAINTS, WILL CONT TO MONITOR
--- NOTE | 2020-08-01 20:04 | NUR ---
CALL TO HOSPITALIST / CBG 27 PT CALLED AND STATED SHE FELT HER BLOOD SUGAR WAS LOW. 27 UPON CHECK. PT IS ALERT AND RESPONSIVE. SPOKE W/ HOSPITALIST TG CHANG. NEW ORDER FOR 1 AMP D50 NOW. ADD HYPOGLYCEMIC PROTOCOL. PT CBG 123 UPON 15 MIN RECHECK. PT IS TAKING PO SNACKS AT THIS TIME. REMAINS A/O X 3.
--- NOTE | 2020-08-01 20:17 | NUR ---
PT VAPING IN ROOM, NURSE NOTIFIED
--- NOTE | 2020-08-01 21:21 | NUR ---
CALL TO HOSPITALIST / MIGRAINE PT REQUESTING IMITREX DUE TO MIGRAINE. RECEIVED ONCE DAILY DOSE THIS AM. CALL TO HOSPITALIST. TG CHANG OKAYED OT DOSE OF IMITREX NOW.
--- NOTE | 2020-08-02 05:06 | NUR ---
SHIFT SUMMARY: VSS. AFEB. 02 >98% ON RA. AAOX3. TEARFUL EACH TIME SHE IS DUE FOR PAIN MEDS. PAIN IS LOCATED IN LLE. MIGRAINE SYMPTOMS RESOLVED W/ IMITREX. WOUND VAC DRSG TO L STUMP CDI, WELL SEALED. SCANT SERO/SANG DRAINAGE OBSERVED IN TUBING. PT INDEPENDENT IN ROOM USING WALKER. IV ABT INFUSED PER ORDERS. SLEPT MINIMALLY. AWAKE AND REQUESTING SNACKS SEVERAL TIMES. WCTM.
[2020-08-02 10:04] LABS: Anion Gap 2 mmol/L (6-16); Blood Urea Nitrogen 21 mg/dL (8-24); Bun/Creatinine Ratio 37.4 (12.0-20.0); CO2, Blood 29 mmol/L (21-32); Calcium, Blood 8.7 mg/dL (8.5-10.1); Chloride, Blood 105 mmol/L (98-108); Creatinine, Blood 0.56 mg/dL (0.40-1.00); Glomerular Filtration Rate >60 (60-); Glucose, Blood 140 mg/dL (70-99); Potassium, Blood 4.3 mmol/L (3.5-5.5); Sodium, Blood 136 mmol/L (136-145); Vancomycin, Trough 14.6 ug/mL (5.0-10.0)
[2020-08-02] MEDS ORDERED: CO Q10100 MG PO (15:37)
--- NOTE | 2020-08-02 17:42 | NUR ---
SHIFT SUMMARY PT IS AOX4. PT C/O PAIN AND MEDICATED X5 PER EMAR. PT DENIES N/V, SOB. PT IS SBA TO INDEPENDENT WITH TRANSFERS IN ROOM AND DID NOT WORK WITH PT/OT TODAY. PLAN IS FOR PT TO DC TOMORROW. PT HAD PICC LINE PLACED IN MJ TODAY. PT DID NOT HAVE VISITORS. APPETITE IS GOOD. PT IS TEARFUL T/O SHIFT. PT CURRENLTY IN BED, CALL LIGHT IN REACH, LOW POSITION.
--- NOTE | 2020-08-03 03:55 | NUR ---
SHIFT SUMMARY: VSS. AFEB. AAOX3. ABLE TO COMMUNICATE NEEDS. UP INDEPENDENTLY IN ROOM. TEARFUL AT TIMES, TYPICALLY WHEN REQUESTING PAIN MEDS. IV ABT INFUSED ORDERED. WOUND VAC DRESSING CDI TO L BKA SITE. SCANT TO MOD AMT OF SANGUINOUS DRAINAGE VISIBLE IN WOUND VAC TUBING. TRACE EDEMA, NO ERYTHEMA VISIBLE ON L STUMP. NO ACUTE OVERNIGHT EVENTS. WCTM.
[2020-08-03 05:18] LABS: Anion Gap 3 mmol/L (6-16); Blood Urea Nitrogen 25 mg/dL (8-24); Bun/Creatinine Ratio 39.3 (12.0-20.0); CO2, Blood 30 mmol/L (21-32); Calcium, Blood 8.7 mg/dL (8.5-10.1); Chloride, Blood 107 mmol/L (98-108); Creatinine, Blood 0.64 mg/dL (0.40-1.00); Glomerular Filtration Rate >60 (60-); Glucose, Blood 104 mg/dL (70-99); Potassium, Blood 4.2 mmol/L (3.5-5.5); Sodium, Blood 140 mmol/L (136-145)
--- NOTE | 2020-08-03 16:08 | NUR ---
DISCUSSED DISCHARGE WITH MIKE HERNANDEZ, ASHVIN HYMAN AND STEVIE JUAREZ. THIS NURSE ALSO SPOKE WITH HOME HEALTH NURSE WHO STATED THAT PT CANNOT BE ADMITTED TO HOME HEALTH UNTIL AFTER SHE RECEIVES FIRST DOSE OF DAPTOMYCIN IN THE HOSPITAL. THIS NURSE CALLED DR. GOODWIN, NEW ORDERS INITIATED. HOME HEALTH NURSE ALSO STATED THAT PATIENT'S DAUGHTER NEEDS TO BE EDUCATED ON HOW TO FLUSH AN IV, SIGNS OF POOR FLUSH, ADMINISTERING PUSH MEDICATION WITH SYRINGE INCLUDING INFUSION TIMES. PATIENT'S DAUGHTER NEEDS TO BE COMFORTABLE WITH THIS PRIOR TO PATIENT DC. PATIENT STATES THAT HER DAUGHTER CANNOT COME IN TONIGHT AND THAT EDUCATION WILL HAVE TO BE DONE AT TIME OF DC. THIS NURSE WILL CALL PT'S DAUGHTER TO VERIFY. DISCHARGE WOUND VAC IN ROOM AND AWAITING PLACEMENT AT TIME OF DC.
--- NOTE | 2020-08-03 18:36 | NUR ---
SHIFT SUMMARY PT AXO, PLEASANT AND COOPERATIVE WITH CARE, EMOTIONAL AT TIMES. VSS, THOUGH HEART RATE OF 107 NOTED, WILL CONTINUE TO MONITOR. SEE PREVIOUS NURSE NOTE ABOUT DISCHARGE. MEDICATED FOR PAIN PER EMAR. WOUND VAC CHANGED PER ORDERS. DC'D POWERGLIDE PER PATIENT REQUEST. BED IN LOW POSITION, CALL LIGHT WITHIN REACH. PT STATES THAT SHE WILL CALL HER DAUGHTER TO DISCUSS WHEN TO COME IN FOR EDUCATION REGARDING ANTIBIOTIC INFUSION AT HOME. CBG AT 0806 WAS 41, PT GIVEN APPLEJUICE, CHEESE STICK, PB AND CRACKERS, PUDDING. RECHECK AT [address] GOODWIN AT BEDSIDE WAS 62. RECHECK AT [address] GOODWIN REQUEST WAS 141. PATIENT REFUSED SEMGLEE INSULIN AND DINNER DOSE OF SCHEDULED INSULIN, SEE JUL.
--- NOTE | 2020-08-04 05:00 | NUR ---
PRODUCT PROMOTER SALES PERSON SUMMMARY PT A&OX4, ABLE TO MAKE NEEDS KNOWN, PLEASANT AND COOPERATIVE TO CARE. PT MEDICATED FOR PAIN PER EMAR. NO C/O CP, SOB, OR N&V. PT CALM AND RESTED IN BED T/O SHIFT. PT CONT ON IV ABX, NO ASE NOTED. NO ACUTE CHANGES NOTED TO PT THIS SHIFT. BED AT LOWEST POSITION. CALL LIGHT WITHIN REACH.
[2020-08-04] MEDS ORDERED: CUBICIN RF500 M1 IV (12:05)
--- NOTE | 2020-08-04 12:48 | NUR ---
DISCHARGE DISCHARGE INSTRUCTIONS, FOLLOW UP APPOINTMENTS AND DISCHARGE MEDICATIONS REVIEWED WITH PT. HARD COPY SCRIP GIVEN TO PT, NEW MEDS FAXED TO [facility] PER PT PREFERENCE. WOUND VAC SWITCHED FROM HOSP VAC TO HOME VAC. HOME HEALTH TO FOLLOW UP WITH PT FOR IV ABX. LEFT UPPER ARM PICC IN PLACE AND FLUSHING WELL. ESCORTED OUT VIA W/C
== END 2020-08-04 12:48 | disposition home health service (06) | DRG 492 ==
LOC: ER 16:50 → MEDS 23:41 → ICUW 23:41 → MEDS 23:57 → ICUW 07-28 00:19 → MEDS 07-28 11:00 → ENPENDDIS 08-03 10:59 → MEDS 08-04 12:48
PROVIDERS: Emergency Medicine; Family Medicine; Orthopaedic Surgery; Physician Assistant; ADMIT Internal Medicine
PROC: 0QBH0ZZ Excision of Left Tibia, Open Approach (ICD-10-PCS; principal; 2020-07-28 14:45)
DX: T87.44 Infection of amputation stump, left lower extremity (principal); E11.10 Type 2 diabetes mellitus with ketoacidosis without coma; M86.8X6 Other osteomyelitis, lower leg; L02.416 Cutaneous abscess of left lower limb; G43.909 Migraine, unspecified, not intractable, without status migrainosus; I10 Essential (primary) hypertension; F15.10 Other stimulant abuse, uncomplicated; F41.8 Other specified anxiety disorders; F17.210 Nicotine dependence, cigarettes, uncomplicated; B95.62 Methicillin resistant Staphylococcus aureus infection as the cause of diseases classified elsewhere; Z79.899 Other long term (current) drug therapy; G40.909 Epilepsy, unspecified, not intractable, without status epilepticus; K21.9 Gastro-esophageal reflux disease without esophagitis; G47.00 Insomnia, unspecified; J45.909 Unspecified asthma, uncomplicated; Z90.49 Acquired absence of other specified parts of digestive tract; Z90.710 Acquired absence of both cervix and uterus; Z98.890 Other specified postprocedural states; Z79.4 Long term (current) use of insulin; Z88.8 Allergy status to other drugs, medicaments and biological substances; Z88.0 Allergy status to penicillin; E11.51 Type 2 diabetes mellitus with diabetic peripheral angiopathy without gangrene; E11.69 Type 2 diabetes mellitus with other specified complication; Z20.822 Contact with and (suspected) exposure to COVID-19
CPT/HCPCS: 0241U; 36415; 36569; 80047; 80048; 80053; 80202; 82947; 83605; 85014; 85025; 87040; 87070; 87071; 87075; 87077; 87147; 87186; 87205; 94760; 96374; 96375; 97110; 97116; 97162; 97165; 99284-25; A9270; C1751; C9113; J0878; J1100; J1815; J1885; J2250; J2270; J2405; J2543; J2704; J3010; J3370; J7030; J7050; Q2038

== ENCOUNTER 2020-08-10 00:54 | Emergency (ER) | payer OTHER ==
[~2020-08-10] VITALS: Ht 172.7 cm; Wt 71.2 kg
[~2020-08-10 00:54] MED LIST changes: +CO Q10100 MG PO; +CUBICIN RF500 M1 IV
[2020-08-10 05:15] LABS: Hematocrit 30.9 % (33.0-51.0); Hemoglobin 9.7 g/dL (11.5-16.0); Mean Corpuscular HGB 25.7 pg (26.0-34.0); Mean Corpuscular HGB Conc 31.4 g/dL (31.5-36.5); Mean Corpuscular Volume 82 fL (80-100); Mean Platelet Volume 9.9 fL (9.1-12.4); Platelet Count 387 K/mm3 (150-400); RDW Coefficient Variation 15.2 % (11.7-14.2); RDW Standard Deviation 45.9 fL (35.1-46.3); Red Blood Cell Count 3.78 M/mm3 (3.80-5.20); White Blood Cell Count 4.88 K/mm3 (4.00-11.30)
[2020-08-10 05:36] LABS: Alanine Aminotransfer (ALT/SGP 33 U/L (12-78); Albumin, Blood 3.1 g/dL (3.4-5.0); Albumin/Globulin Ratio 0.8 (0.8-1.8); Alk Phos 141 U/L (50-136); Anion Gap 7 mmol/L (6-16); Aspartate Aminotrans (AST/SGOT 20 U/L (12-37); Bilirubin, Total 0.2 mg/dL (0.1-1.0); Blood Urea Nitrogen 20 mg/dL (8-24); Bun/Creatinine Ratio 37.5 (12.0-20.0); CO2, Blood 27 mmol/L (21-32); Chloride, Blood 103 mmol/L (98-108); Creatinine, Blood 0.53 mg/dL (0.40-1.00); Globulin, Blood 4.1 g/dL (2.2-4.0); Glomerular Filtration Rate >60 (60-); Glucose, Blood 177 mg/dL (70-99); Potassium, Blood 3.5 mmol/L (3.5-5.5); Sodium, Blood 137 mmol/L (136-145); Total Protein, Blood 7.2 g/dL (6.4-8.2); Troponin I <0.015 ng/mL (0.000-0.040)
[2020-08-10 05:39] LABS: BASOPHILS ABSOLUTE MAN 0.04 K/mm3 (0.00-0.23); BASOPHILS PERCENT MAN 1 % (0-2); EOSINOPHILS ABSOLUTE MAN 0.14 K/mm3 (0.00-0.68); EOSINOPHILS PERCENT MAN 3 % (0-6); LYMPHOCYTES ABSOLUTE MAN 2.04 K/mm3 (0.84-5.20); LYMPHOCYTES PERCENT MAN 42 % (21-46); MONOCYTES ABSOLUTE MAN 0.53 K/mm3 (0.16-1.47); MONOCYTES PERCENT MAN 11 % (4-13); NEUTROPHILS ABSOLUTE MAN 2.09 K/mm3 (1.96-9.15); SEG NEUTROPHILS PERCENT MAN 43 % (41-73); TOTAL CELLS COUNTED 100
== END 2020-08-10 08:25 | disposition home or self-care (01) ==
LOC: ER 00:54
PROVIDERS: Emergency Medicine
DX: Z48.01 Encounter for change or removal of surgical wound dressing (principal); Z89.512 Acquired absence of left leg below knee; E10.40 Type 1 diabetes mellitus with diabetic neuropathy, unspecified; F17.210 Nicotine dependence, cigarettes, uncomplicated; Z88.5 Allergy status to narcotic agent; Z88.8 Allergy status to other drugs, medicaments and biological substances; Z79.899 Other long term (current) drug therapy; W19.XXXA Unspecified fall, initial encounter
CPT/HCPCS: 71045; 80053; 83690; 84484; 85025; 93005; 93010; 96374; 96375; 99283-25; J2270; J2405

== ENCOUNTER 2020-08-15 09:32 | Inpatient (IN) | payer OTHER ==
[~2020-08-15] VITALS: Ht 172.7 cm; Wt 59.1 kg
[2020-08-15 10:02] LABS: Source, Urine Clean Catch
[2020-08-15 10:05] LABS: BASOPHILS ABSOLUTE AUTO 0.05 K/mm3 (0.00-0.23); BASOPHILS PERCENT AUTO 1 % (0-2); EOSINOPHILS PERCENT AUTO 0 % (0-6); Hematocrit 36.5 % (33.0-51.0); Hemoglobin 11.2 g/dL (11.5-16.0); IMMATURE GRAN ABSOLUTE AUTO 0.04 K/mm3 (0.00-0.10); IMMATURE GRAN PERCENT AUTO 1 % (0-1); LYMPHOCYTES ABSOLUTE AUTO 2.03 K/mm3 (0.84-5.20); LYMPHOCYTES PERCENT AUTO 23 % (21-46); MONOCYTES ABSOLUTE AUTO 0.31 K/mm3 (0.16-1.47); MONOCYTES PERCENT AUTO 4 % (4-13); Mean Corpuscular HGB Conc 30.7 g/dL (31.5-36.5); Mean Corpuscular Volume 85 fL (80-100); Mean Platelet Volume 10.2 fL (9.1-12.4); NEUTROPHILS ABSOLUTE AUTO 6.45 K/mm3 (1.96-9.15); NEUTROPHILS PERCENT AUTO 73 % (41-73); Platelet Count 483 K/mm3 (150-400); RDW Coefficient Variation 15.2 % (11.7-14.2); RDW Standard Deviation 47.2 fL (35.1-46.3); Red Blood Cell Count 4.31 M/mm3 (3.80-5.20); White Blood Cell Count 8.88 K/mm3 (4.00-11.30)
[2020-08-15 10:07] LABS: Bilirubin, Urine Neg (Neg); Blood, Urine 1+ (Neg); Glucose Qualitative, Urine 4+ (Neg); Ketones, Urine 4+ (Neg); Leukocyte Esterase, Urine Neg (Neg); Nitrite, Urine Neg (Neg); Protein, Urine 2+ (Neg); Urobilinogen, Urine NORM (Normal)
[2020-08-15 10:13] LABS: Appearance, Urine Clear (Clear); Color, Urine Yellow (P-Yellow)
[2020-08-15 10:15] LABS: Bacteria Many /hpf; Red Blood Cells, Urine 0-2 /hpf (0-2); Squamous Epithelial Cells Many /hpf (Few); White Blood Cells, Urine 0-2 /hpf (0-5); Yeast/Fungi Urine Few /hpf
[2020-08-15 10:42] LABS: Alanine Aminotransfer (ALT/SGP 51 U/L (12-78); Albumin, Blood 3.5 g/dL (3.4-5.0); Albumin/Globulin Ratio 0.8 (0.8-1.8); Alk Phos 300 U/L (50-136); Anion Gap 21 mmol/L (6-16); Aspartate Aminotrans (AST/SGOT 24 U/L (12-37); Bilirubin, Total 0.8 mg/dL (0.1-1.0); Blood Urea Nitrogen 18 mg/dL (8-24); Bun/Creatinine Ratio 38.4 (12.0-20.0); CO2, Blood 13 mmol/L (21-32); Calcium, Blood 9.7 mg/dL (8.5-10.1); Chloride, Blood 98 mmol/L (98-108); Creatinine, Blood 0.47 mg/dL (0.40-1.00); Globulin, Blood 4.6 g/dL (2.2-4.0); Glomerular Filtration Rate >60 (60-); Glucose, Blood 352 mg/dL (70-99); Potassium, Blood 4.5 mmol/L (3.5-5.5); Sodium, Blood 132 mmol/L (136-145); Total Protein, Blood 8.1 g/dL (6.4-8.2)
[2020-08-15 10:55] LABS: Beta-hydroxybutyrate 88.4 mg/dL (0.2-2.8)
[2020-08-15 13:32] LABS: U Amphetamine Screen Not Detected; U Barbituate Screen Not Detected; U Benzodiazapine Screen Not Detected; U Buprenorphine Screen Not Detected; U Cannabinoids Screen DETECTED; U Cocaine Screen Not Detected; U Methadone Screen Not Detected; U Methamphetamine Screen Not Detected; U Opiates Screen Not Detected; U Oxycodone Screen Not Detected; U Phencyclidine Screen Not Detected; U Propoxyphene Screen Not Detected
[2020-08-15 15:31] LABS: Anion Gap 18 mmol/L (6-16); Blood Urea Nitrogen 18 mg/dL (8-24); Bun/Creatinine Ratio 38.3 (12.0-20.0); CO2, Blood 13 mmol/L (21-32); Calcium, Blood 8.4 mg/dL (8.5-10.1); Chloride, Blood 109 mmol/L (98-108); Creatinine, Blood 0.47 mg/dL (0.40-1.00); Glomerular Filtration Rate >60 (60-); Glucose, Blood 263 mg/dL (70-99); Potassium, Blood 3.9 mmol/L (3.5-5.5); Sodium, Blood 140 mmol/L (136-145)
--- NOTE | 2020-08-15 19:15 | NUR ---
PT ARRIVED TO ICU 3 FROM ER AT 1700. PT IS DROWSY AND SPEECH IS SLURRED AT TIMES. DIFFICULT TO GET ANY QUESTIONS ANSWERED. PT WAS ON INSULIN GTT AT 5.9 UNITS/HR AND D5 1/2 NS AT 150ML/HR. GOT CBG ON ARRIVAL AND ADJUSTED INSULIN TO 5UNITS/HR. EVENTUALLY HAD TO TITRATE UP TO 7UNITS/HR. PT IS DRY HEAVING WITH EVEN JUST WATER OFF OF MOUTH SWAB. PT CONTINUES TO YELL OUT FOR WATER. ON ARRIVAL TO ICU PT HAD AN EXISTING SINGLE LUMEN PICC LINE TO [facility]. THE LAST DOCUMENTATION OF THE PICC WAS EARLY JULY AND WAS ONLY OUT 1 CM. NOW THE PICC PRESENTS WITH 7CM EXPOSED. CXR STATES IT IS IN SUBCLAVIAN VEIN. PICC WAS NOT SECURED IN STAT LOCK AND DID NOT HAVE TCH DRESSING. PT IS NOT ABLE TO SAY WHO CHANGED THE DRESSING LAST. SEE PHOTO IN CHART. LET DR. CASTREJON KNOW WHO ORDERED BCX2 AND TO PULL EXISTING PICC AND CULTURE THE TIP. TIP SENT TO LAB. NEW PICC LINE PLACED TO [facility]. REPORT GIVEN TO MAYA KINGSLEY WHO WILL ASSUME CARE.
[2020-08-15 20:19] LABS: Anion Gap 13 mmol/L (6-16); Blood Urea Nitrogen 17 mg/dL (8-24); CO2, Blood 17 mmol/L (21-32); Calcium, Blood 8.7 mg/dL (8.5-10.1); Chloride, Blood 112 mmol/L (98-108); Creatinine, Blood 0.55 mg/dL (0.40-1.00); Glomerular Filtration Rate >60 (60-); Glucose, Blood 274 mg/dL (70-99); Potassium, Blood 3.6 mmol/L (3.5-5.5); Sodium, Blood 142 mmol/L (136-145)
--- NOTE | 2020-08-15 21:30 | NUR ---
ASSUMED PT CARE FROM TEETEE LUTHER AT 1915 PT LYING IN BED RESTLESS. INSULIN GTT INFUSING AT 7 UNITS/HR THROUGH 18G TO RIGHT WRIST WITH D5 1/2 NS INFUSING AT 150MLS/HR. NEWLY PLACED PICC TO RIGHT UPPER ARM, WHICH INFUSIONS WERE SWITCHED TO. PT C/O NAUSEA, BUT ASKED FOR WATER. PT INFORMED THAT SHE COULDN'T HAVE ANYTHING BY MOUTH D/T EMESIS. PT CRYING OUT STATING HER STOMACH IS UPSET AND WOULD LIKE SOME WATER, WHICH WILL MAKE IT FEEL BETTER. PT EDUCATED ON ELECTROLYTE IMBALANCES WITH VOMITING, WHICH IS WHAT WE ARE TRYING TO CORRECT. PT STATED IN A WHINY VOICE, "I PROMISE I WON'T GET SICK IF YOU GET ME WATER." PT MEDICATED WITH ZOFRAN INSTEAD AND WAS INFORMED IF SHE DOESN'T HAVE FURTHER EMESIS THEN I WOULD GET HER SOME ICE CHIPS. PT WAS FREE OF EMESIS FOR APPROXIMATELY ONE HOUR; THEREFORE, ICE CHIPS OBTAINED. PT WASN'T EVEN ABLE TO CONSUME ANY BEFORE SHE STARTED VOMITING, 900CC OF BROWN LIQUID. PLACED CALL OUT TO LILLI MAS REGARDING DIFFERENT ANTIEMETIC MED. 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 SURGERY WAS JULY 28, 2020. IT APPEARS PT HAS ONE SUTURE LEFT IN PLACE. WOUND BED HAS GOOD GRANULATED TISSUE; HOWEVER, WHERE WOUND TUNNELS THERE IS QUITE A BIT OF SLOUGH NOTED. SEE CHART FOR MEASUREMENTS AND PICTURES. WOUND WAS CLEANSED WITH WOUND PANTOGRAPH II ENGRAVER, 1/2 INCH PACKING GAUZE WAS SOAKED IN STERILE WATER AND PACKED TO TUNNELING AREA, CALCIUM ALGINATE PLACED OVER WOUND BED, COVERED WITH MAXABSORB EXUDRY DRESSING, AND SECURED WITH KERLEX. PT STATES HOME HEALTH COMES OUT EVERY OTHER DAY TO CHANGE DRESSING; HOWEVER, PRIOR DRESSING WAS SATURATED IN YELLOW/PURULENT DRAINAGE. THE DRESSING IN PLACE WAS GAUZE AND COVERED WITH TEGADERM. WILL ENTER NURSING ORDERS FOR DRESSING CHANGES. MAY NEED TO CONSULT ORTHO REGARDING SUTURE LEFT IN PLACE, WELL ASSESSMENT FOR POSSIBLE WOUND VAC; WILL HAVE DAY RN DISCUSS WITH HOSPITALIST REGARDING ORTHO CONSULT. VSS, AFEBRILE AT 99.9, SINUS TACHYCARDIA WITH HR 100-120'S. SBP 160-170'S. WILL CONTINUE TO MONITOR BLOOD SUGARS AND TITRATE INSULIN ACCORDINGLY. CALL LIGHT IS WITHIN REACH.
--- NOTE | 2020-08-15 21:43 | NUR ---
PLACED CALL TO LILLI MAS PT CONTINUING TO VOMIT WITH RELIEF FROM ZOFRAN. NEW ORDERS FOR PHENERGAN 12.5-25 MG IV Q4HR. PT ALSO NOTED TO BE HYPERTENSIVE WITH SBP 160-170; UABLE TO TAKE PO MINIPRESS D/T EMESIS. NEW ORDERS FOR HYDRALAZINE 10MG Q6 PRN. PT ALSO C/O PAIN AND UNABLE TO TAKE HER NORMAL PERCOCET; THEREFORE, NEW ORDERS FOR FENTANYL 25-50MCG IV Q2 PRN PAIN. PHENERGAN ADMINISTERED AND APPEARS EFFECTIVE FOR PT.
--- NOTE | 2020-08-16 00:57 | NUR ---
REPORTED OFF TO KATE, RN PT MEDICATED WITH ZOFRAN AND FENTANYL. CURRENTLY RESTING WELL. NO MORE EMESIS. INSULIN GTT IS NOW AT 4 UNITS/HR AND D5 1/2 NS REMAINS AT 150MLS/HR.
--- NOTE | 2020-08-16 01:01 | NUR ---
ASSUMPTION OF CARE REPORT RECV'D FROM TEETEE TREJO. PT RESTING COMFORTABLE AT THIS TIME. INSULIN GTT @ 4U/HR, D5 CONTINUES @ 150ML/HR. WILL CONTINUE TO MONITOR.
[2020-08-16 03:53] LABS: Hematocrit 28.9 % (33.0-51.0); Hemoglobin 9.5 g/dL (11.5-16.0); Mean Corpuscular HGB 26.2 pg (26.0-34.0); Mean Corpuscular HGB Conc 32.9 g/dL (31.5-36.5); Mean Platelet Volume 9.8 fL (9.1-12.4); Platelet Count 527 K/mm3 (150-400); RDW Coefficient Variation 15.2 % (11.7-14.2); RDW Standard Deviation 44.3 fL (35.1-46.3); Red Blood Cell Count 3.62 M/mm3 (3.80-5.20); White Blood Cell Count 15.35 K/mm3 (4.00-11.30)
[2020-08-16 03:54] LABS: Mean Corpuscular Volume 80 fL (80-100)
[2020-08-16 04:09] LABS: Anion Gap 7 mmol/L (6-16); Blood Urea Nitrogen 18 mg/dL (8-24); Bun/Creatinine Ratio 39.7 (12.0-20.0); CO2, Blood 24 mmol/L (21-32); Calcium, Blood 8.7 mg/dL (8.5-10.1); Chloride, Blood 113 mmol/L (98-108); Creatinine, Blood 0.45 mg/dL (0.40-1.00); Glomerular Filtration Rate >60 (60-); Glucose, Blood 197 mg/dL (70-99); Magnesium, Blood 1.6 mg/dL (1.6-2.4); Potassium, Blood 3.1 mmol/L (3.5-5.5); Sodium, Blood 144 mmol/L (136-145)
--- NOTE | 2020-08-16 06:00 | NUR ---
SHIFT SUMMARY PT A&OX4. N/V CONTINUED T/O THE NIGHT. TREATED WITH PRN ANTIEMETICS. CBG TRENDING CLOSE TO NORMAL, SEE INSULIN TITRATION ON FLOWSHEET. GAP OF 7 RESULTING WITH THIS AM LABS. HOSPITALIST NOTIFIED, ADVISED TO CONTINUE TITRATING INSULIN GTT AND D5 @ PRESCRIBED RATE. HYPOKALEMIC THIS AM, ORDER FOR 40KCL, INFUSING AT THIS TIME. SBP <170, HYDRALIZINE NOT ADMINISTERED. NO OTHER ACUTE CHANGES THIS AM, WILL CONTINUE TO MONITOR.
--- NOTE | 2020-08-16 08:20 | NUR ---
DR. SEGOVIA UPDATED ON PATIENT STATUS. INFORMED THAT PATIENT IS TOLERATING CLEAR LIQUIDS AND DENIES NAUSEA. INFORMED THAT CO2 AND ANION GAP BOTH CORRECTED ON AM LABS. INFORMED THAT PATIENT RECEIVING KCL FOR POTASSIUM OF 3.1 THIS AM. INFORMED THAT PATIENT'S LAST BS 158 AND THAT INSULIN DRIP IS AT 3 UNITS/ HOUR. DOCTOR INFORMED THAT PATIENT HAS WOUND TO L BKA. DOCTOR ENTERED ROOM AND ASSESSED WOUND. INFORMED THAT WBCS INCREASED THIS AM. NO ORDERS RECEIVED AT THIS TIME.
--- NOTE | 2020-08-16 08:30 | NUR ---
INITIAL ASSESSMENT PATIENT RESTING IN BED UPON ENTERING ROOM. PATIENT ALERT AND ORIENTED X 4, AFEBRILE. PATIENT ANXIOUS. PATIENT STATES SHE IS COLD. PATIENT COMPLAINS OF PAIN IN L BKA. PATIENT SATTING 90% AND GREATER ON RA. LUNGS CLEAR THROUGHOUT. PATIENT IN SR TO ST, HR 90S TO LOW 100S. SBP 150S TO 160S. PATIENT RECEIVED SCHEDULED LISINOPRIL THIS AM. PATIENT DRINKING CLEAR LIQUIDS AND DENIES NAUSEA. LAST BM ON 08/13. WNL. SKIN PALE. SCATTERED SCABS AND ABRASIONS NOTED T/O BODY. L BKA WOUND NOTED; DRESSING IN PLACE. D5 1/2 NS INFUSING AT 150 MLS/ HOUR. INSULIN DRIP AT 2 UNITS/ HOUR. KCL INFUSING FOR POTASSIUM OF 3.1 THIS AM. BLOOD SUGAR 158 THIS AM. BED LOW, CALL LIGHT IN REACH. WILL CONTINUE TO MONITOR PATIENT FREQUENTLY THROUGHOUT SHIFT.
[2020-08-16 13:07] LABS: Influenza A, PCR NEGATIVE (NEGATIVE); Influenza B, PCR NEGATIVE (NEGATIVE); Resp Syncytial Virus, PCR NEGATIVE (NEGATIVE); SARS-Cov-2 (COVID-19) PCR, MMC NEGATIVE (NEGATIVE)
--- NOTE | 2020-08-16 13:10 | NUR ---
PATIENT HAS TEMP OF 100.0 DEGREES FAHRENHEIT. RESP REMAINS WNL. HR 80S TO LOW 100S. SBP 1-TEENS TO 160S. INSULIN DRIP TURNED OFF 1 HOUR AFTER LONG ACTING INSULIN GIVEN. BLOOD SUGAR 259; COVERAGE GIVEN. PATIENT COMPLAINING OFF AND ON OF NAUSEA. PATIENT NPO AT THIS TIME PER REQUEST OF DR. ALEXANDER, WHO WAS CONSULTED TO WOUND TO L BKA. PRN PAIN MEDICATIONS BEING GIVEN FOR PAIN TO THE L BKA. NURSE, LYNNE QUISPE, PERFORMED WOUND CARE THIS AM. PATIENT WILL BE TRANSFERRING TO SURGICAL FLOOR ONCE REPORT IS GIVEN.
[2020-08-16 14:17] LABS: Anion Gap 8 mmol/L (6-16); Blood Urea Nitrogen 13 mg/dL (8-24); Bun/Creatinine Ratio 29.7 (12.0-20.0); C-REACTIVE PROTEIN, EXT RANGE 0.432 mg/dL (0.000-0.300); CO2, Blood 23 mmol/L (21-32); Chloride, Blood 107 mmol/L (98-108); Creatinine, Blood 0.44 mg/dL (0.40-1.00); Glomerular Filtration Rate >60 (60-); Glucose, Blood 281 mg/dL (70-99); Potassium, Blood 3.2 mmol/L (3.5-5.5); Sodium, Blood 138 mmol/L (136-145)
--- NOTE | 2020-08-16 14:32 | NUR ---
PATIENT TRANSFERRED TO SURGICAL FLOOR, ROOM 229. ALL BELONGINGS SENT WITH PATIENT.
[2020-08-16 15:50] LABS: BASOPHILS ABSOLUTE AUTO 0.02 K/mm3 (0.00-0.23); BASOPHILS PERCENT AUTO 0 % (0-2); EOSINOPHILS ABSOLUTE AUTO 0.01 K/mm3 (0.00-0.68); EOSINOPHILS PERCENT AUTO 0 % (0-6); Hematocrit 26.8 % (33.0-51.0); Hemoglobin 8.6 g/dL (11.5-16.0); IMMATURE GRAN ABSOLUTE AUTO 0.07 K/mm3 (0.00-0.10); IMMATURE GRAN PERCENT AUTO 0 % (0-1); LYMPHOCYTES ABSOLUTE AUTO 2.83 K/mm3 (0.84-5.20); LYMPHOCYTES PERCENT AUTO 18 % (21-46); MONOCYTES ABSOLUTE AUTO 1.59 K/mm3 (0.16-1.47); MONOCYTES PERCENT AUTO 10 % (4-13); Mean Corpuscular HGB 26.4 pg (26.0-34.0); Mean Corpuscular HGB Conc 32.1 g/dL (31.5-36.5); Mean Corpuscular Volume 82 fL (80-100); Mean Platelet Volume 9.9 fL (9.1-12.4); NEUTROPHILS PERCENT AUTO 71 % (41-73); Platelet Count 435 K/mm3 (150-400); RDW Coefficient Variation 15.9 % (11.7-14.2); RDW Standard Deviation 47.4 fL (35.1-46.3); Red Blood Cell Count 3.26 M/mm3 (3.80-5.20); White Blood Cell Count 15.72 K/mm3 (4.00-11.30)
[2020-08-16 16:07] LABS: Alanine Aminotransfer (ALT/SGP 29 U/L (12-78); Albumin, Blood 2.6 g/dL (3.4-5.0); Albumin/Globulin Ratio 0.8 (0.8-1.8); Alk Phos 190 U/L (50-136); Anion Gap 7 mmol/L (6-16); Aspartate Aminotrans (AST/SGOT 7 U/L (12-37); Bilirubin, Total 0.3 mg/dL (0.1-1.0); Blood Urea Nitrogen 12 mg/dL (8-24); CO2, Blood 24 mmol/L (21-32); Calcium, Blood 8.2 mg/dL (8.5-10.1); Chloride, Blood 108 mmol/L (98-108); Creatinine, Blood 0.48 mg/dL (0.40-1.00); Globulin, Blood 3.3 g/dL (2.2-4.0); Glomerular Filtration Rate >60 (60-); Glucose, Blood 165 mg/dL (70-99); Potassium, Blood 3.1 mmol/L (3.5-5.5); Sodium, Blood 139 mmol/L (136-145); Total Protein, Blood 5.9 g/dL (6.4-8.2)
--- NOTE | 2020-08-16 16:32 | NUR ---
TRANSFER NOTE PATIENT ARRIVED FROM ICU AT 1430. ABLE TO TRANSFER HERSELF TO THE BED IN ROOM. CHANGED PATIENT'S GOWN, PROVIDED EXTRA BLANKETS AND PILLOWS FOR COMFORT. MEDICATED FOR PAIN AT 1500 WITH 50 MCG FENTANYL. PATIENT ABLE TO INDPENDENTLY USE BEDSIDE COMMODE. NPO AT THIS TIME DUE TO POSSIBLE SURGERY TO Michelle LEMUS.
--- NOTE | 2020-08-16 16:36 | NUR ---
CT SCAN PATIENT WENT TO CT SCAN AT 1615. SHE REPORTS A SEVERE SORE THROAT FROM MULTIPLE DAYS OF VOMITING. WILL MEDICATE FOR PAIN PER EMAR.
--- NOTE | 2020-08-16 18:02 | NUR ---
WOUND VAC DR ALEXANDER CONDUCTED BEDSIDE WOUND DEBRIDEMENT AND WOUND VAC APPLICATION. GAVE 25 MCG FENTANYL IV PER DR ALEXANDER'S VERBAL ORDER PRIOR TO PROCEDURE.
--- NOTE | 2020-08-16 18:27 | NUR ---
SHIFT SUMMARY PT RESTING IN ROOM. TOLERATING ADA DIET AND FLUIDS. KCL RUNNING VIA PICC. WOUND VAC IN PLACE AND PATENT TO LEFT BKA. MEDICATED FOR PAIN WITH ORAL MEDS PER EMAR. VOIDING WELL. WILL GIVE REPORT TO RECEIVING ASSOCIATE STORE NURSE.
--- NOTE | 2020-08-17 04:59 | NUR ---
SHIFT SUMMARY PT IS A/O X4. IND FROM BED TO BSC. WOUND VAC TO L BKA IN PLACE, FOAM COMPRESSED. PAIN MANAGED WITH PERCOCET AND FENTANYL PRN PER ORDERS. PT TOLERATING PO INTAKE AND VOIDING. NO ACUTE CHANGES OVERNIGHT. RESTING IN BED WITH CALL LIGHT IN REACH.
[2020-08-17 06:39] LABS: BASOPHILS ABSOLUTE AUTO 0.04 K/mm3 (0.00-0.23); BASOPHILS PERCENT AUTO 0 % (0-2); EOSINOPHILS ABSOLUTE AUTO 0.03 K/mm3 (0.00-0.68); EOSINOPHILS PERCENT AUTO 0 % (0-6); Hematocrit 25.4 % (33.0-51.0); Hemoglobin 7.9 g/dL (11.5-16.0); IMMATURE GRAN ABSOLUTE AUTO 0.04 K/mm3 (0.00-0.10); IMMATURE GRAN PERCENT AUTO 0 % (0-1); LYMPHOCYTES ABSOLUTE AUTO 3.06 K/mm3 (0.84-5.20); LYMPHOCYTES PERCENT AUTO 26 % (21-46); MONOCYTES ABSOLUTE AUTO 1.05 K/mm3 (0.16-1.47); MONOCYTES PERCENT AUTO 9 % (4-13); Mean Corpuscular HGB 26.1 pg (26.0-34.0); Mean Corpuscular HGB Conc 31.1 g/dL (31.5-36.5); Mean Corpuscular Volume 84 fL (80-100); Mean Platelet Volume 9.8 fL (9.1-12.4); NEUTROPHILS ABSOLUTE AUTO 7.75 K/mm3 (1.96-9.15); NEUTROPHILS PERCENT AUTO 65 % (41-73); Platelet Count 377 K/mm3 (150-400); RDW Coefficient Variation 16.1 % (11.7-14.2); RDW Standard Deviation 49.6 fL (35.1-46.3); Red Blood Cell Count 3.03 M/mm3 (3.80-5.20); White Blood Cell Count 11.97 K/mm3 (4.00-11.30)
[2020-08-17 07:03] LABS: Anion Gap 5 mmol/L (6-16); Blood Urea Nitrogen 13 mg/dL (8-24); CO2, Blood 27 mmol/L (21-32); Calcium, Blood 8.5 mg/dL (8.5-10.1); Chloride, Blood 108 mmol/L (98-108); Creatinine, Blood 0.62 mg/dL (0.40-1.00); Glomerular Filtration Rate >60 (60-); Glucose, Blood 245 mg/dL (70-99); Potassium, Blood 3.9 mmol/L (3.5-5.5); Sodium, Blood 140 mmol/L (136-145)
--- NOTE | 2020-08-17 07:20 | NUR ---
pt req hot chicken broth to help her sore throat
--- NOTE | 2020-08-17 10:43 | NUR ---
called dr díaz per pt req pt stated that she req stronger pain meds pt given magic mouth wash and cepacol lozenges pt currnetly taking po percocet and breakthru fent reports pain bka 12/08 and traot 02/08 dr díaz came to see pt earlier and stated he will come back
--- NOTE | 2020-08-17 14:52 | NUR ---
pt req a stump sock
--- NOTE | 2020-08-17 18:00 | NUR ---
pt req pain meds fent 50 mcg given pt had some some soup and diet seirra mist
[2020-08-18 04:29] LABS: BASOPHILS ABSOLUTE AUTO 0.02 K/mm3 (0.00-0.23); BASOPHILS PERCENT AUTO 0 % (0-2); EOSINOPHILS ABSOLUTE AUTO 0.05 K/mm3 (0.00-0.68); EOSINOPHILS PERCENT AUTO 1 % (0-6); Hematocrit 25.2 % (33.0-51.0); Hemoglobin 7.9 g/dL (11.5-16.0); IMMATURE GRAN ABSOLUTE AUTO 0.01 K/mm3 (0.00-0.10); IMMATURE GRAN PERCENT AUTO 0 % (0-1); LYMPHOCYTES ABSOLUTE AUTO 3.45 K/mm3 (0.84-5.20); LYMPHOCYTES PERCENT AUTO 48 % (21-46); MONOCYTES ABSOLUTE AUTO 0.65 K/mm3 (0.16-1.47); MONOCYTES PERCENT AUTO 9 % (4-13); Mean Corpuscular HGB 26.4 pg (26.0-34.0); Mean Corpuscular HGB Conc 31.3 g/dL (31.5-36.5); Mean Corpuscular Volume 84 fL (80-100); Mean Platelet Volume 10.1 fL (9.1-12.4); NEUTROPHILS ABSOLUTE AUTO 3.06 K/mm3 (1.96-9.15); NEUTROPHILS PERCENT AUTO 42 % (41-73); Platelet Count 335 K/mm3 (150-400); RDW Coefficient Variation 15.9 % (11.7-14.2); RDW Standard Deviation 49.2 fL (35.1-46.3); Red Blood Cell Count 2.99 M/mm3 (3.80-5.20); White Blood Cell Count 7.24 K/mm3 (4.00-11.30)
[2020-08-18 04:51] LABS: Anion Gap 3 mmol/L (6-16); Blood Urea Nitrogen 15 mg/dL (8-24); Bun/Creatinine Ratio 31.9 (12.0-20.0); CO2, Blood 31 mmol/L (21-32); Calcium, Blood 8.4 mg/dL (8.5-10.1); Chloride, Blood 105 mmol/L (98-108); Creatinine, Blood 0.47 mg/dL (0.40-1.00); Glomerular Filtration Rate >60 (60-); Glucose, Blood 225 mg/dL (70-99); Potassium, Blood 4.1 mmol/L (3.5-5.5); Sodium, Blood 139 mmol/L (136-145)
--- NOTE | 2020-08-18 08:12 | NUR ---
SUMMARY PT C/O SUDDEN INCREASED THROAT PAIN THIS AM. REPORTS WORSE ON LOWER R SIDE AND AROUND EAR LOBE AREA.DOES NOT FEEL LOZENGES WOULD BE HELPFUL.I REPORTED THIS TO DAY RN KEMAL WHO AGREES TO FOLLOW UP WITH DOCTOR ROUNDS.
--- NOTE | 2020-08-18 17:08 | NUR ---
SUMMARY: NO ACUTE CHANGE TODAY. VSS, A/O, EMOTIONAL TODAY WHEN SPEAKING ABOUT PAST MED HX AND UNKOWN FUTURE. SURGICAL SITE/ WOUND VAC WNL. PT CONTINUES TO COMPLAIN OF THROAT PAIN, DR. CONTRERAS AWARE AND MEDICATING PER EMAR. PT COMPLAINS OF THROAT PAIN AND NO PAIN AT SURGICAL SITE. PT ABLE TO TAKE SHOWER TODAY. PLAN IS SNF PLACEMENT IN [place] PER ANAND EMERY. NO ACUTE SAFETY CONCERNS, WILL REPORT TO OWEN KINGSLEY.
--- NOTE | 2020-08-19 06:35 | NUR ---
SUMMARY PT C/O FEELING IF TOP OF STOMACH IS EMPTY "ALL THE TIME" REQUIRES ANTI EMETICS,BUT TOLERATED SNACKS AFTER FIRST PHENERGAN DOSE TONIGHT. PT CONT TO C/O THROAT DISCOMFORT AND EPIGASTRIC PAIN TAKING PERCOCET ALTERNATING WITH SUBLIMAZE.DAY RN ADVISED DR LOOKED AT PT THROAT DURING ROUNDS.PT WITHOUT DOCUMENTED BMS SINCE ADMIT.PT TAKES ORAL ANTIEMETICS AT HOME.WE DISCUSSED REQUESTING ANTIEMETICS POSSIBLY ORDERED PO. PT ALSO ERB HAS HAS STRUGGLED WITH LACK OF SLEEP.TAKES BENADRYL AT HOME FOR ALLERGIES, SO I TOLD PT WE WOULD ASK DOCTOR IF SHE CASINO PORTER GET BENADRYL FOR SLEEP.
--- NOTE | 2020-08-19 12:41 | NUR ---
PT WOUND VAC FOUND WITH AIR LEAK AT ABOUT 1030. DRESSING REMOVED, WOUND CLEANSED AND PICTURES TAKEN. SEE PAPER CHART. NEW WOUND VAC DRESSING APPLIED WITH GOOD SEAL, SITE WNL AT THIS TIME.
--- NOTE | 2020-08-19 17:14 | NUR ---
SUMMARY: NO ACUTE CHANGE TODAY, VSS, A/O. PT SEEMED LESS NAUSEATED TODAY, NO EMESIS REPORTED. GIVEN SCHEDULED REGLAN. CONTINUES TO C/O PHANTOM PAIN AT L STUMP. PAIN AT STUMP GREATER THAN AT THROAT TODAY. SUGICAL SITE WNL. NO ACUTE CONCERNS AT THIS TIME
[2020-08-20 06:29] LABS: BASOPHILS ABSOLUTE AUTO 0.04 K/mm3 (0.00-0.23); BASOPHILS PERCENT AUTO 1 % (0-2); EOSINOPHILS ABSOLUTE AUTO 0.28 K/mm3 (0.00-0.68); EOSINOPHILS PERCENT AUTO 3 % (0-6); Hemoglobin 9.2 g/dL (11.5-16.0); IMMATURE GRAN ABSOLUTE AUTO 0.02 K/mm3 (0.00-0.10); IMMATURE GRAN PERCENT AUTO 0 % (0-1); LYMPHOCYTES ABSOLUTE AUTO 2.77 K/mm3 (0.84-5.20); LYMPHOCYTES PERCENT AUTO 34 % (21-46); MONOCYTES ABSOLUTE AUTO 0.83 K/mm3 (0.16-1.47); MONOCYTES PERCENT AUTO 10 % (4-13); Mean Corpuscular HGB 26.4 pg (26.0-34.0); Mean Corpuscular HGB Conc 31.7 g/dL (31.5-36.5); Mean Corpuscular Volume 83 fL (80-100); Mean Platelet Volume 10.1 fL (9.1-12.4); NEUTROPHILS ABSOLUTE AUTO 4.23 K/mm3 (1.96-9.15); NEUTROPHILS PERCENT AUTO 52 % (41-73); Platelet Count 452 K/mm3 (150-400); RDW Coefficient Variation 16.4 % (11.7-14.2); RDW Standard Deviation 49.8 fL (35.1-46.3); Red Blood Cell Count 3.49 M/mm3 (3.80-5.20); White Blood Cell Count 8.17 K/mm3 (4.00-11.30)
[2020-08-20 06:48] LABS: Percent Saturation 4.1 % (15.0-50.0)
--- NOTE | 2020-08-20 07:40 | NUR ---
SUMMARY PT REPORTS FEELING SIGNIFICANTLY BETTER TONIGHT. MINIMAL PAIN MEDS REQUESTED. PT WAS ABLE TO SLEEP PART OF THE SHIFT. OOB TO BSC FOR VOIDING. TOLERATING PO.
--- NOTE | 2020-08-20 15:43 | NUR ---
HIGH VEWS SCORE PERSONAL BANKING REPRESENTATIVE REPORTED A HIGH VEWS SCORE OF 5. HR IN THE 130S AND BP IN 90/40S. PATIENT DENIES SOB, CHEST PAIN, DIZZINESS, LIGHT-HEADEDNESS. DOES REPORT PAIN IS ELEVATED. PATIENT ASYMPTOMATIC AT THIS TIME. WILL MONITOR AND RECHECK.
--- NOTE | 2020-08-20 18:20 | NUR ---
SHIFT SUMMARY PT ALERT AND INDEPENDENT IN ROOM THROUGH OUT SHIFT. TOLERATING ADA DIET, MEDICATED FOR PAIN AND BLOOD GLUCOSE PER EMAR. WOUND VAC TO L BKA PATENT AND SUCTIONING. PICC LINE DRESSING CHANGED THIS SHIFT. PATIENT TOOK A SHOWER. WAITING FOR SNF PLACEMENT.
--- NOTE | 2020-08-20 21:52 | NUR ---
PT HS CBG WAS 451, PT STATED ACCIDENTALLY ATE TOO MANY OF HER BOYFRIENDS CANDY. DID CALL [employer] AND OBTAINED ORDER FOR ADDITIONAL COVERAGE. EDUCATED IMPORTANCE OF TRYING TO CONTROL BLOOD GLUCOSE LEVELS.
--- NOTE | 2020-08-20 23:28 | NUR ---
RECEIVED REPORT AND ASSUMED CARE OF PT. ADAM IS SITTING UP IN BED APPLYING TAPE TO AN EMESIS BAG. SHE DENEIS ANY NEEDS AT THIS TIME, STATES THAT SHE IS "BORED". PLEASANT AND COOPERATIVE. WCTM.
--- NOTE | 2020-08-21 05:16 | NUR ---
SHIFT SUMMARY: ADAM IS A&OX4. VSS. WHEN THIS NURSE FIRST ENCOUNTERED ADAM TODAY, HER SPEECH WAS PRESSURED AND SHE WAS MOVING AROUND THE ROOM ADHERING VARIOUS ITEMS TOGETHER WITH SCOTCH TAPE. LATER IN THE SHIFT, SHE WAS SOMNOLENT FOLLOWED BY A BRIEF PERIOD OF COUGHING AND BELCHING, AFTER WHICH SHE FELL ASLEEP. SHE HAD A PACKET OF GUMMIES IN HER LAP, WHICH SHE DENIED EATING BUT SMEARS WERE PRESENT ON HER FACE. SNORING RESPIRATIONS EVEN AND UNLABORED. SHE DENIED THE NEED FOR PAIN MEDICATION AT THIS TIME. SHE IS LYING IN BED WITH THE CALL LIGHT IN REACH. WILL REPORT TO DAY SHIFT RN.
--- NOTE | 2020-08-21 17:30 | NUR ---
SHIFT SUMMARY PT ANXIOUS AND FIDGETY THIS AM. MONITORED BP AND BG AND THEY WERE STABLE. MOOD SEEMED TO IMPROVE TOWARD END OF SHIFT AND WAS RESTING CALMLY IN ROOM AFTER SHOWER. MEDICATED PER EMAR FOR PAIN AND NAUSEA. PICC LINE DRESSING PATENT. L BKA STUMP DRESSING C/D/I WITH WOUND VAC IN PLACE AND PATENT. WAITING FOR SNF PLACEMENT.
--- NOTE | 2020-08-22 04:48 | NUR ---
SHIFT SUMMARY: PT HAS DONE WELL THIS SHIFT. S/P I&D WITH WOUND VAC PLACEMENT TO LEFT STUMP. WOUND VAC PATENT AND MAINTAINING SUCTION. PT MEDICATED FOR PAIN ONCE WITH 25MCG OF FENTANYL AND PERCOCET PER EMAR. PT INDEPENDENT TO BEDSIDE COMMODE. VOIDING WELL. REMAINS NAUSEATED AND C/O SORE THROAT. MEDICATED WITH PHENERGAN PER EMAR. PLAN FOR PT TO BE INTERVIEWED FOR SNF PLACEMENT TODAY.
--- NOTE | 2020-08-22 15:46 | NUR ---
REPORT GIVEN TO TEETEE HANNAH AT [facility] AT THIS TIME
--- NOTE | 2020-08-22 19:41 | NUR ---
SUMMARY: NO ACUTE CHANGE TODAY. TRANSFER DELAYED UNTIL TOMORROW. PT MORE EMOTIONAL TODAY WITH CHANGES IN CARE. PT WOUND VAC LEAKING TONIGHT AND REMOVED FOR PT TO SHOWER. TEETEE MÁRQUEZ TO DRESS WOUND TONIGHT TO PREPARE FOR TRANSFER IN THE MORNING. PT CONTINUES TO NEED OXYCODONE AND FENTANYAL FOR BREAKTHROUGH PAIN. VSS, INDEP IN ROOM. REPORT GIVEN TO TEETEE MÁRQUEZ.
--- NOTE | 2020-08-23 06:38 | NUR ---
SUMMARY PT PACKING FOR TRANSFER THIS AM.
--- NOTE | 2020-08-23 07:52 | NUR ---
pt c/o increasing pain to hands.heat and swelling noted.pt states baseline intermittently at home.verb uses ice at home. gave icce pack.radial pulses strong.
--- NOTE | 2020-08-23 11:06 | NUR ---
REPORT GIVEN TO ZAKIA KINGSLEY AT [facility] IN [place] AT 10:15.
--- NOTE | 2020-08-23 11:46 | NUR ---
FACILITY TRANSFER: TRANSPORT HERE, TRANSPORTER GIVEN DISCHARGE PACKET. WOUND VAC IN ROOM. PICC LINE IN PLACE, FACILITY ASKED THAT IT NOT BE REMOVED. PT LEFT WITH TRANSPORT VIA WHEELCHAIR AT 1140
== END 2020-08-23 11:43 | disposition short-term general hospital (02) | DRG 463 ==
LOC: ER 09:32 → ERHOLD 13:17 → SURS 13:17 → ICUE 13:17 → SURS 08-16 14:52
PROVIDERS: Emergency Medicine; Family Medicine; Hospitalist; Nurse Practitioner Acute Care; Orthopaedic Surgery; ADMIT Internal Medicine
PROC: 0JBP0ZZ Excision of Left Lower Leg Subcutaneous Tissue and Fascia, Open Approach (ICD-10-PCS; principal; 2020-08-16)
DX: T87.44 Infection of amputation stump, left lower extremity (principal); E10.10 Type 1 diabetes mellitus with ketoacidosis without coma; K22.6 Gastro-esophageal laceration-hemorrhage syndrome; B95.62 Methicillin resistant Staphylococcus aureus infection as the cause of diseases classified elsewhere; F41.9 Anxiety disorder, unspecified; F32.9 Major depressive disorder, single episode, unspecified; E10.40 Type 1 diabetes mellitus with diabetic neuropathy, unspecified; K21.9 Gastro-esophageal reflux disease without esophagitis; G89.4 Chronic pain syndrome; I10 Essential (primary) hypertension; J45.909 Unspecified asthma, uncomplicated; F15.10 Other stimulant abuse, uncomplicated; G43.909 Migraine, unspecified, not intractable, without status migrainosus; F41.3 Other mixed anxiety disorders; Z90.49 Acquired absence of other specified parts of digestive tract; Z98.890 Other specified postprocedural states; Z90.710 Acquired absence of both cervix and uterus; Z79.899 Other long term (current) drug therapy; Z88.1 Allergy status to other antibiotic agents; Z88.5 Allergy status to narcotic agent; Z91.19 Patient's noncompliance with other medical treatment and regimen
CPT/HCPCS: 0241U; 36415; 36569; 71045; 73701; 80048; 80053; 81001; 82010; 82550; 82728; 82800; 82947; 83540; 83550; 83735; 84132; 85025; 85027; 86140; 87040; 87070; 87086; 87106; 93005; 93010; 94760; 96361; 96365; 96372-59; 96375; 99285-25; A9270; C1751; C9113; J0878; J1650; J1815; J2405; J2550; J3010; J3480; J7030; J7040; J7042; Q9967

== ENCOUNTER 2020-10-08 12:28 | Inpatient (IN) | payer OTHER ==
[~2020-10-08] VITALS: Ht 170.2 cm; Wt 63.0 kg
[2020-10-08 13:11] LABS: Source, Urine Clean Catch
[2020-10-08 13:18] LABS: Appearance, Urine Clear (Clear); Bilirubin, Urine Neg (Neg); Blood, Urine 2+ (Neg); Color, Urine Yellow (P-Yellow); Glucose Qualitative, Urine 4+ (Neg); Ketones, Urine 3+ (Neg); Leukocyte Esterase, Urine Neg (Neg); Nitrite, Urine Neg (Neg); Protein, Urine Neg (Neg); Specific Gravity, Urine 1.015 (1.003-1.022); Urobilinogen, Urine NORM (Normal)
[2020-10-08 13:23] LABS: PCO2 Venous 30.1 mmHg (38-42); pH Blood Venous 7.21 (7.34-7.37)
[2020-10-08 13:24] LABS: Base Excess Venous -16.1 mmol/L; Bicarbonate Venous 13.5 mmol/L (24.0-30.0); PO2 Venous 140 mmHg (38-42)
[2020-10-08 13:34] LABS: BASOPHILS ABSOLUTE AUTO 0.09 K/mm3 (0.00-0.23); BASOPHILS PERCENT AUTO 0 % (0-2); EOSINOPHILS ABSOLUTE AUTO 0.01 K/mm3 (0.00-0.68); EOSINOPHILS PERCENT AUTO 0 % (0-6); Hematocrit 42.2 % (33.0-51.0); Hemoglobin 13.3 g/dL (11.5-16.0); IMMATURE GRAN ABSOLUTE AUTO 0.41 K/mm3 (0.00-0.10); IMMATURE GRAN PERCENT AUTO 2 % (0-1); LYMPHOCYTES ABSOLUTE AUTO 2.69 K/mm3 (0.84-5.20); LYMPHOCYTES PERCENT AUTO 10 % (21-46); MONOCYTES ABSOLUTE AUTO 1.27 K/mm3 (0.16-1.47); MONOCYTES PERCENT AUTO 5 % (4-13); Mean Corpuscular HGB 26.8 pg (26.0-34.0); Mean Corpuscular HGB Conc 31.5 g/dL (31.5-36.5); Mean Corpuscular Volume 85 fL (80-100); Mean Platelet Volume 11.3 fL (9.1-12.4); NEUTROPHILS ABSOLUTE AUTO 22.75 K/mm3 (1.96-9.15); NEUTROPHILS PERCENT AUTO 84 % (41-73); Platelet Count 361 K/mm3 (150-400); RDW Standard Deviation 46.8 fL (35.1-46.3); Red Blood Cell Count 4.97 M/mm3 (3.80-5.20); White Blood Cell Count 27.22 K/mm3 (4.00-11.30)
[2020-10-08 13:37] LABS: Bacteria Not Seen /hpf; Squamous Epithelial Cells Few /hpf (Few); White Blood Cells, Urine Not Seen /hpf (0-5)
[2020-10-08 13:49] LABS: Alanine Aminotransfer (ALT/SGP 19 U/L (12-78); Albumin, Blood 3.5 g/dL (3.4-5.0); Albumin/Globulin Ratio 0.7 (0.8-1.8); Alk Phos 213 U/L (50-136); Anion Gap 24 mmol/L (6-16); Aspartate Aminotrans (AST/SGOT 14 U/L (12-37); Bilirubin, Total 0.5 mg/dL (0.1-1.0); Blood Urea Nitrogen 38 mg/dL (8-24); Bun/Creatinine Ratio 39.8 (12.0-20.0); CO2, Blood 12 mmol/L (21-32); Calcium, Blood 8.6 mg/dL (8.5-10.1); Chloride, Blood 80 mmol/L (98-108); Creatinine, Blood 0.96 mg/dL (0.40-1.00); Globulin, Blood 4.7 g/dL (2.2-4.0); Glomerular Filtration Rate >60 (60-); Glucose, Blood 1052 mg/dL (70-99); Potassium, Blood 5.2 mmol/L (3.5-5.5); Sodium, Blood 116 mmol/L (136-145); Total Protein, Blood 8.2 g/dL (6.4-8.2)
[2020-10-08] MEDS ORDERED: FEROSUL325 M1 PO (14:29)
[2020-10-08] MEDS ORDERED: OMEP20ER PO (14:30)
[2020-10-08] MEDS ORDERED: ASCORBIC ACID500 M1 PO (14:31)
[2020-10-08] MEDS ORDERED: ALBU90OI INH (14:32)
[2020-10-08] MEDS ORDERED: TRAZ100 PO (14:55)
[2020-10-08] MEDS ORDERED: HUMALOG KW100 UNIT/1 SC (14:55)
[2020-10-08] MEDS ORDERED: BASAGLAR K100 UNIT/1 SC (14:55)
[2020-10-08] MEDS ORDERED: Neurontin300 MG PO (14:55)
[2020-10-08] MEDS ORDERED: PRAZOSIN HCL1 M2 PO (14:55)
[2020-10-08] MEDS ORDERED: DULO60 PO (14:55)
[2020-10-08] MEDS ORDERED: IMITREX50 MG PO (14:56)
[2020-10-08] MEDS ORDERED: PANT20 PO (14:56)
[2020-10-08] MEDS ORDERED: BUSPIRONE HCL7.5 MG PO (14:56)
[2020-10-08] MEDS ORDERED: INDO50 PO (14:57)
[2020-10-08] MEDS ORDERED: Vitamin D2000 UNIT PO (14:57)
[2020-10-08] MEDS ORDERED: BACLOFEN5 M1 PO (14:58)
[2020-10-08] MEDS ORDERED: KETO10 PO (14:58)
[2020-10-08] MEDS ORDERED: Prinivil10 MG PO (14:59)
[2020-10-08] MEDS ORDERED: VISBIOME 112.51 EACH PO (15:00)
[2020-10-08] MEDS ORDERED: Hydroxyzine HCl50 MG PO (15:00)
[2020-10-08] MEDS ORDERED: Acetaminophen325 M1 PO (15:00)
[2020-10-08] MEDS ORDERED: ONDA4 PO (15:01)
[2020-10-08] MEDS ORDERED: BENADRYL25 MG PO (15:01)
[2020-10-08] MEDS ORDERED: ONE-A-DAY PREN1 EAC1 PO (15:01)
[2020-10-08] MEDS ORDERED: CO Q-10100 MG PO (15:02)
[2020-10-08] MEDS ORDERED: DOCU100 PO (15:02)
[2020-10-08] MEDS ORDERED: MIRALAX17 G3 PO (15:03)
[2020-10-08] MEDS ORDERED: PERCOCET 10-321 EAC1 PO (15:03)
[2020-10-08] MEDS ORDERED: Naloxone H0.4 MG/11 SC (15:04)
[2020-10-08] MEDS ORDERED: SENN187 PO (15:04)
[2020-10-08 16:30] LABS: Anion Gap 22 mmol/L (6-16); Blood Urea Nitrogen 36 mg/dL (8-24); Bun/Creatinine Ratio 45.7 (12.0-20.0); CO2, Blood 16 mmol/L (21-32); Calcium, Blood 8.6 mg/dL (8.5-10.1); Chloride, Blood 85 mmol/L (98-108); Creatinine, Blood 0.79 mg/dL (0.40-1.00); Glomerular Filtration Rate >60 (60-); Glucose, Blood 837 mg/dL (70-99); Potassium, Blood 4.3 mmol/L (3.5-5.5); Sodium, Blood 123 mmol/L (136-145)
--- NOTE | 2020-10-08 19:44 | NUR ---
PT TO ICU 1 FROM ER AT 1820, SETTLED INTO BED. VSS, PT DROWSY BUT WAKES EASILY AND ANSWERS QUESTIONS APPROPRIATELY. NS BOLUSES FINISHING UP FROM ER, VANCO INFUSING, INSULIN GTT AT 7U/HR. CBG READS "HI," LAB CALLED FOR DRAW, UNABLE TO OBTAIN BLOOD DRAW D/T DIFFICULT STICK. CHARGE NURSE NOTIFIED OF NEED FOR A LINE. RUE COOL TO TOUCH, EDEMATOUS, PT ABLE TO MOVE FINGERS, SENSATION INTACT. BOTH IV'S TO R ARM FLUSH WITHOUT DIFFICULTY, WILL CONTINUE TO MONITOR. DRESSING TO LLE STUMP CDI, NO FOUL ODOR NOTED WHILE STUMP IS DRESSED. SKIN TO BACKSIDE INTACT. RLE CONTINUED TO BECOME MORE EDEMATOUS WITH IVF INFUSIONS OF NS AND INSULIN. NS STOPPED, INSULIN RESUMED IN L HAND. TG REEDER NOTIFIED OF ARM EDEMA BY KATERN, DR. SCHAEFFER IN TO ASSESS FOR CL PLACEMENT.
[2020-10-08 20:45] LABS: U Amphetamine Screen Not Detected; U Barbituate Screen Not Detected; U Benzodiazapine Screen Not Detected; U Buprenorphine Screen Not Detected; U Cannabinoids Screen Not Detected; U Cocaine Screen Not Detected; U Methadone Screen Not Detected; U Methamphetamine Screen Not Detected; U Opiates Screen Not Detected; U Oxycodone Screen Not Detected; U Phencyclidine Screen Not Detected; U Propoxyphene Screen Not Detected
[2020-10-08 21:21] LABS: Hematocrit 36.4 % (33.0-51.0); Hemoglobin 12.3 g/dL (11.5-16.0)
[2020-10-08 21:55] LABS: Anion Gap 15 mmol/L (6-16); Blood Urea Nitrogen 25 mg/dL (8-24); Bun/Creatinine Ratio 38.5 (12.0-20.0); CO2, Blood 17 mmol/L (21-32); Calcium, Blood 8.4 mg/dL (8.5-10.1); Chloride, Blood 102 mmol/L (98-108); Creatinine, Blood 0.65 mg/dL (0.40-1.00); Glomerular Filtration Rate >60 (60-); Glucose, Blood 394 mg/dL (70-99); Potassium, Blood 3.8 mmol/L (3.5-5.5)
[2020-10-08 21:58] LABS: Sodium, Blood 134 mmol/L (136-145)
--- NOTE | 2020-10-08 22:30 | NUR ---
SHIFT ASSESSMENT ASSUMED CARE OF PT @ 1900, REPORT RECEIVED FROM TEETEE CAMEJO. PT VERY DROWSY, WAKENS EASILY TO VERBAL STIMULI. WILL ANSWER SIMPLE QUESTIONS, UNABLE TO PROVIDE DETAILED HISTORY. QUICKLY FALLS BACK ASLEEP WITH STIMULUS REDUCTION. CONTINUES TO C/O NAUSEA c FREQUENT VOMITING, MEDICATING c PRN ANTI-EMETICS. MARIAH LUNA L KNEE c DRESSING C/D/I. R ARM SWOLLEN AND TIGHT UP TO SHOULDER FROM INFILTRATED IV, PT MOVING ALL FINGERS, CAP REFILL <3 SECONDS, SENSATION INTACT . HOSPITALIST ASSESSED ARM, ULTRASOUND ORDERED AND COMPLETED. SWELLING SLOWLY DECREASING. CENTRAL LINE ESTABLISHED BY DR SCHAEFFER, X-RAY CONFIRMATION READ BY DR. SCHAEFFER. ALL FLUIDS MOVED TO CENTRAL LINE. INSULIN GTT @ 7U/HR c CBG DECREASING AT PRESCRIBED RATE. MEHTA CATH ESTABLISHED, DRAINING CLOUDY, YELLOW URINE. PT INCONTINENT OF LOOSE, BROWN STOOL. WILL CONTINUE TO MONITOR CBG'S Q1HR.
[2020-10-08 23:40] LABS: Source, Urine Catheter
[2020-10-08 23:48] LABS: Bilirubin, Urine Neg (Neg); Blood, Urine 1+ (Neg); Glucose Qualitative, Urine 4+ (Neg); Ketones, Urine 4+ (Neg); Leukocyte Esterase, Urine Neg (Neg); Nitrite, Urine Neg (Neg); Protein, Urine 2+ (Neg); Specific Gravity, Urine 1.015 (1.003-1.022); Urobilinogen, Urine NORM (Normal)
[2020-10-08 23:53] LABS: Appearance, Urine Hazy (Clear); Color, Urine Pale Yellow (P-Yellow)
[2020-10-08 23:54] LABS: Amorphous Mod (0-Heavy); Bacteria Few /hpf; Red Blood Cells, Urine Rare /hpf (0-2); Squamous Epithelial Cells Few /hpf (Few); White Blood Cells, Urine Not Seen /hpf (0-5)
[2020-10-09 01:29] LABS: Anion Gap 9 mmol/L (6-16); Blood Urea Nitrogen 23 mg/dL (8-24); Bun/Creatinine Ratio 43.2 (12.0-20.0); CO2, Blood 21 mmol/L (21-32); Calcium, Blood 7.9 mg/dL (8.5-10.1); Chloride, Blood 106 mmol/L (98-108); Creatinine, Blood 0.53 mg/dL (0.40-1.00); Glomerular Filtration Rate >60 (60-); Glucose, Blood 239 mg/dL (70-99); Magnesium, Blood 1.9 mg/dL (1.6-2.4); Phosphorus, Blood 1.7 mg/dL (2.5-4.9); Potassium, Blood 3.9 mmol/L (3.5-5.5); Sodium, Blood 136 mmol/L (136-145)
[2020-10-09 05:21] LABS: BASOPHILS ABSOLUTE AUTO 0.02 K/mm3 (0.00-0.23); BASOPHILS PERCENT AUTO 0 % (0-2); EOSINOPHILS PERCENT AUTO 0 % (0-6); Hematocrit 31.8 % (33.0-51.0); Hemoglobin 10.8 g/dL (11.5-16.0); IMMATURE GRAN ABSOLUTE AUTO 0.15 K/mm3 (0.00-0.10); IMMATURE GRAN PERCENT AUTO 1 % (0-1); LYMPHOCYTES PERCENT AUTO 9 % (21-46); MONOCYTES ABSOLUTE AUTO 1.49 K/mm3 (0.16-1.47); MONOCYTES PERCENT AUTO 7 % (4-13); Mean Corpuscular HGB 27.3 pg (26.0-34.0); Mean Corpuscular Volume 80 fL (80-100); Mean Platelet Volume 10.3 fL (9.1-12.4); NEUTROPHILS PERCENT AUTO 83 % (41-73); Platelet Count 287 K/mm3 (150-400); RDW Coefficient Variation 15.3 % (11.7-14.2); RDW Standard Deviation 44.7 fL (35.1-46.3); Red Blood Cell Count 3.96 M/mm3 (3.80-5.20); White Blood Cell Count 20.06 K/mm3 (4.00-11.30)
[2020-10-09 05:59] LABS: Anion Gap 7 mmol/L (6-16); Beta-hydroxybutyrate 2.2 mg/dL (0.2-2.8); Blood Urea Nitrogen 19 mg/dL (8-24); Bun/Creatinine Ratio 32.9 (12.0-20.0); CO2, Blood 21 mmol/L (21-32); Calcium, Blood 7.9 mg/dL (8.5-10.1); Chloride, Blood 108 mmol/L (98-108); Creatinine, Blood 0.58 mg/dL (0.40-1.00); Glomerular Filtration Rate >60 (60-); Glucose, Blood 158 mg/dL (70-99); Potassium, Blood 3.6 mmol/L (3.5-5.5); Sodium, Blood 136 mmol/L (136-145)
--- NOTE | 2020-10-09 07:34 | NUR ---
SHIFT SUMMARY PT ALERT AND ORIENTED TO PERSON AND PLACE NOW, STILL UNSURE OF DATE AND TIME. REMAINS VERY DROWSY, QUICKLY BACK TO SLEEP WITH DECREASED STIMULI. NAUSEA AND VOMITING MORE CONTROLLED c PRN ANTI-EMETICS. R ARM SWELLING DECREASED, SIZE ALMOST BACK TO BASELINE, PT MOVING ALL FINGERS, MOVING ARM FREELY, DENIES PAIN IN R ARM AND FINGERS. INSULIN GTT TITRATED T/O NIGHT, SEE FLOWSHEET. MEHTA CATH DRAINING CLOUDY, YELLOW URINE. NO OTHER SIGNIFICANT CHANGES IN PT CONDITION, REPORT GIVEN TO ONCOMING NURSE.
[2020-10-09 08:17] LABS: Magnesium, Blood 1.8 mg/dL (1.6-2.4); Phosphorus, Blood 2.2 mg/dL (2.5-4.9)
--- NOTE | 2020-10-09 12:12 | NUR ---
CARE ASSUMED ASSESSMENTS COMPLETED, PT DROWSY BUT WAKES EASILY TO VOICE, ORIENTED X4. COOPERATIVE WITH CARE. VSS, LS CTA, HR SINUS 100-110, PT AFEBRILE. DRESSING TO L STUMP CDI, PPP IN RLE. EDEMA TO RUE IMPROVING SINCE LAST EVENING, SKIN WARM, DRY, NO REDNESS/HEAT NOTED, PT DENIES PAIN IN RUE. DR. RIVERS CALLED REGARDING LAB RESULTS AND INSULIN GTT, NEW ORDERS RECEIVED FOR TRANSITION TO SQ INSULIN. INSULIN GTT OFF AT 1130, NS INFUSING AT 75ML/HR. CT'S AND XRAYS COMPLETED THIS AM, DR. ALEXANDER IN TO ASSESS. DRESSING REMOVED FROM L STUMP, NO FOUL ODOR NOTED, SCANT YELLOW OUTPUT, NO OBVIOUS BONE EXPOSURE SEEN. DR. ALEXANDER STATES HE IS HAPPY WITH PROGRESS OF WOUND, WOUND VAC ORDERED, NO PLANS FOR SURGICAL INTERVENTION AT THIS TIME NO OSTEOMYLITIS SEEN ON CT PER DR. ALEXANDER. ATTEMPTED TO GIVE PT WATER, PT THEN BECAME NAUSEATED AND C/O ABD PAIN, PO MEDICATIONS HELD. PT THEN QUICKLY FELL BACK ASLEEP. HOLDING LUNCH TRAY.
--- NOTE | 2020-10-09 18:58 | NUR ---
END OF SHIFT WOUND VAC PLACED TO LLE STUMP PER ORDERS, NO FOUL ODOR, OUTPUT REMAINS SCANT YELLOW. CBG'S 200'S AFTER INSULIN GTT DC'D, MEDICATED PER JUL WITH SS INSULIN. PT SLEPT MOST OF AFTERNOON, MEDICATED FOR NAUSEA AND ABDOMINAL PAIN WITH GOOD RESULTS. PT WOKE UP THIS EVENING FOR A LATE DINNER, IS CURRENTLY FINISHING TRAY, NO C/O NAUSEA OR ABD WITH FOOD TONIGHT, HAS BEEN DRINKING FLUIDS THIS AFTERNOON WITHOUT DIFFICULTY. VSS, PT MEDICAL STATUS. K AND PHOS REPLACED, NS @ 100ML/HR
--- NOTE | 2020-10-09 19:00 | NUR ---
ASSUMED CARE ASSUMED CARE OF PATIENT. RESTING QUIETLY WHEN UNDISTURBED. ROUSES EASILY TO STIMULI. VSS. RA- RESPIRATIONS EVEN AND UNLABORED. NS INFUSING AT 100CC/HR. RIJ WITH BETY C/D/I. MEHTA PATENT AND DRAINING YELLOW URINE. DENIES C/O NAUSEA AT THIS TIME. C/O ABD PAIN. CONTACT ISOLATION CONTINUES FOR MRSA. LEFT BKA WITH WOUND VAC IN PLACE. SEE SHIFT ASSESSMENT FOR FULL ASSESSMENT.
[2020-10-10 05:39] LABS: Albumin, Blood 2.4 g/dL (3.4-5.0); Anion Gap 7 mmol/L (6-16); Blood Urea Nitrogen 12 mg/dL (8-24); CO2, Blood 25 mmol/L (21-32); Chloride, Blood 102 mmol/L (98-108); Creatinine, Blood 0.67 mg/dL (0.40-1.00); Glomerular Filtration Rate >60 (60-); Glucose, Blood 367 mg/dL (70-99); Potassium, Blood 3.8 mmol/L (3.5-5.5); Sodium, Blood 134 mmol/L (136-145)
--- NOTE | 2020-10-10 06:37 | NUR ---
SHIFT SUMMARY NO ACUTE CHANGES. SLEPT INTERMITTENTLY. FREQUENTLY REQUESTING SNACKS. CONTINUES WITH C/O ABD PAIN- MEDICATED WITH TORADOL 30MG IV X 2 DOSES AND TYLENOL 650MG PO X 1 DOSE WITH MINIMAL RELIEF. DID NOT REQUIRE TX FOR NAUSEA DURING SHIFT. VSS. REMAINS ON RA WITH STABLE SATS 93-95%. OCCASIONAL NPC NOTED. AFEBRILE. MEHTA PATENT AND DRAINING YELLOW URINE. WOUND VAC IN PLACE TO LEFT BKA STUMP. NS INFUSING AT 100CC/HR. RIHaider PATENT WITH BETY C/D/I. WILL REPORT TO ONCOMING RN WHEN AVAILABLE.
[2020-10-10 06:45] LABS: Hematocrit 29.8 % (33.0-51.0); Hemoglobin 9.9 g/dL (11.5-16.0); Mean Corpuscular HGB 26.8 pg (26.0-34.0); Mean Corpuscular HGB Conc 33.2 g/dL (31.5-36.5); Mean Corpuscular Volume 81 fL (80-100); Mean Platelet Volume 10.3 fL (9.1-12.4); Platelet Count 246 K/mm3 (150-400); RDW Standard Deviation 47.3 fL (35.1-46.3); Red Blood Cell Count 3.69 M/mm3 (3.80-5.20); White Blood Cell Count 12.84 K/mm3 (4.00-11.30)
--- NOTE | 2020-10-10 07:21 | NUR ---
Received report from Lauren KINGSLEY. Patient awakens easily and is able to communicate her needs. She has 22ga IV to and RIJ CL quad, both dressings intact and sites WNL's. She has wound vac to left BKA with scant output. She has NS at 100 ml/hr to [facility]. VSS, See EMR. She denies any pain or current needs.
--- NOTE | 2020-10-10 10:57 | NUR ---
Patient has been resting with some nausea and pain that was treated per JUL. Tolerated am meds without difficulty. Dr Zuniga by and seen patient and no new orders. VSS See EMR. She calls apprpriately. She has no current needs.
--- NOTE | 2020-10-10 12:47 | NUR ---
Patient sitting up eating lucnh and tolerating well. She denies any nausea. VSS, See EMR. CBG 230 covered 2 units humalog. Wound Vac dressing C/D/I and patent. Awaiting surgical bed.
--- NOTE | 2020-10-10 13:58 | NUR ---
Patient has been resting and awakened easily for care. She has tolerated afternoon meds with diet pepsi. VSS, See EMR. PCT going in for bed bath and linen change.
--- NOTE | 2020-10-10 16:55 | NUR ---
PT ARRIVED ON MEDICAL FLOOR [phone]
[2020-10-11 06:01] LABS: Hematocrit 27.4 % (33.0-51.0); Hemoglobin 8.8 g/dL (11.5-16.0); Mean Corpuscular HGB 26.7 pg (26.0-34.0); Mean Corpuscular HGB Conc 32.1 g/dL (31.5-36.5); Mean Corpuscular Volume 83 fL (80-100); Mean Platelet Volume 10.6 fL (9.1-12.4); Platelet Count 195 K/mm3 (150-400); RDW Coefficient Variation 16.5 % (11.7-14.2); RDW Standard Deviation 50.3 fL (35.1-46.3); Red Blood Cell Count 3.29 M/mm3 (3.80-5.20); White Blood Cell Count 6.58 K/mm3 (4.00-11.30)
[2020-10-11 06:22] LABS: Anion Gap 5 mmol/L (6-16); Blood Urea Nitrogen 13 mg/dL (8-24); Bun/Creatinine Ratio 19.7 (12.0-20.0); CO2, Blood 28 mmol/L (21-32); Calcium, Blood 8.2 mg/dL (8.5-10.1); Chloride, Blood 106 mmol/L (98-108); Creatinine, Blood 0.66 mg/dL (0.40-1.00); Glomerular Filtration Rate >60 (60-); Glucose, Blood 145 mg/dL (70-99); Phosphorus, Blood 3.2 mg/dL (2.5-4.9); Potassium, Blood 3.7 mmol/L (3.5-5.5); Sodium, Blood 139 mmol/L (136-145)
[2020-10-11 14:48] LABS: SARS-Cov-2 (COVID-19) PCR, MMC NEGATIVE (NEGATIVE)
--- NOTE | 2020-10-11 19:17 | NUR ---
SHIFT SUMMARY ADAM COMPLAINED OF HEADACHE, BACKACHE, AND HER CHRONIC CHEST PAIN SHE HAS HAD FOR DAYS. GIVEN OXY, PHENERGAN FOR NAUSEA. MEHTA TAKEN OUT, PASSING URINE WELL. INDEP TO BSC. TELE DC'D. DR CORBETT CAME AND CONSULTED, AWAITING NOTE. DR ALEXANDER CAME, STATED IT WAS OK TO TAKE PT OFF WOUND VAC AND HER TO GO HOME WITH EVERY OTHER DAY DRESSING CHANGES . ORDERS PLACED. MAGIC MOUTHWASH ORDERED BY DR RIVERS FOR MOUTH/ESOPHOGUS PAIN. CALL LIGHT IN REACH, [facility]
--- NOTE | 2020-10-12 00:40 | NUR ---
@0000- RECEIVED CALL FROM PT. STATED NEEDED GOWN AND A FAN BECAUSE SHE WAS HOT AND SWEATY. UPON ENTERING ROOM WITH REQUESTED ITEMS, OBSERVED PT. SITTING UP IN BED AND BLOOD ON NEWLY DRESSED GAUZE AND KERLEX TO L STUMP. PT. CLAIMED SHE HAD FALLEN WHILE IN THE BATHROOM. REDRESSED WOUND (L STUMP), NOTED MINIMAL BLOOD BUT NO CHANGES TO THE AREA. PT. C/O PAIN TO L STUMP, MEDICATED PER EMAR. INSTRUCTED PT. TO CALL FOR BATHROOM ASSISTANCE, PT. VERBALIZED UNDERSTANDING. BSC AT THE BEDSIDE WHICH PT. HAD BEEN USING T/O THE DAY AND NIGHT. CHARGE NURSE JUAN MADE AWARE. HESITANT TO DOCUMENT UNWITNESSED FALL DUE TO PT. HX OF BEING AN UNRELIABLE SOURCE. CALL LIGHT WITHIN REACH, SIDE RAILS UPX2, AND BED ALARM ON FOR SAFETY. WILL CONT TO MONITOR.
--- NOTE | 2020-10-12 05:52 | NUR ---
SHIFT SUMMARY- PT. A&O, LAST NIGHT MEDICATED FOR C/O KELLY AND L STUMP PAIN WITH GOOD EFFECT. WOUND VAC DC'D PER ORDER AND WOUND DRESSING DONE TO L STUMP. PT. TOLERATED WELL. ALSO GIVEN ZOFRAN FOR NA. PT. AWAKE MOST OF THE NIGHT WATCHING TV, NO APPARENT DISTRESS NOTED. SNACKS CONTINOUSLY T/O THE NIGHT, VSS. CALL LIGHT WITHIN REACH, SIDE RAILS UPX2, AND BED ALARM ON FOR SAFETY. WILL CONT TO MONITOR.
[2020-10-12] MEDS ORDERED: METO5A PO (16:03)
--- NOTE | 2020-10-12 17:22 | NUR ---
DISCHARGE NOTE PT DC HOME. HALMA PICKED PT UP VIA WHEELCHAIR. WENT OVER DC PACKET WITH PT AND MADE HER AWARE OF NEW MEDICATION AND MEDICATIONS THAT WERE DC. PT MADE AWARE OF DR POSADAS AND WHEN IT WAS RECOMEND WHEN FOLLOW UP SHE TAKE PLACE. MESSAGE LEFT WITH DR GOODWIN OFFICE, THEY WILL CALL HER TO MAKE APPOINTMENT. DR ALEXANDER OFFICED WAS CALLED BUT THEY WERE CLOSED, PT WILL CALL THURSDAY TO MAKE APOINTMENT. CENTRAL LINE WAS DC BY ELBA KINGSLEY. PT THANKED STAFF FOR CARE GIVEN AND WAS HAPPY TO BE GOING HOME.
== END 2020-10-12 17:09 | disposition home health service (06) | DRG 637 ==
LOC: ER 12:28 → ICUE 14:41 → MEDS 14:41 → ERHOLD 14:41 → ICUE 18:20 → MEDS 10-10 16:44 → ENPENDDIS 10-12 12:13 → MEDS 10-12 17:09
PROVIDERS: Internal Medicine Infectious Disease; Nurse Practitioner Acute Care; Physician Assistant; ADMIT Internal Medicine
PROC: 02HV33Z Insertion of Infusion Device into Superior Vena Cava, Percutaneous Approach (ICD-10-PCS; principal; 2020-10-08)
DX: E10.10 Type 1 diabetes mellitus with ketoacidosis without coma (principal); G92 Toxic encephalopathy; R65.10 Systemic inflammatory response syndrome (SIRS) of non-infectious origin without acute organ dysfunction; T87.44 Infection of amputation stump, left lower extremity; F17.200 Nicotine dependence, unspecified, uncomplicated; K21.9 Gastro-esophageal reflux disease without esophagitis; F41.9 Anxiety disorder, unspecified; G47.00 Insomnia, unspecified; I10 Essential (primary) hypertension; G40.909 Epilepsy, unspecified, not intractable, without status epilepticus; F15.10 Other stimulant abuse, uncomplicated; E10.51 Type 1 diabetes mellitus with diabetic peripheral angiopathy without gangrene; F32.9 Major depressive disorder, single episode, unspecified; F17.210 Nicotine dependence, cigarettes, uncomplicated; K29.70 Gastritis, unspecified, without bleeding; J45.909 Unspecified asthma, uncomplicated; E10.43 Type 1 diabetes mellitus with diabetic autonomic (poly)neuropathy; K31.84 Gastroparesis; E83.39 Other disorders of phosphorus metabolism; Z88.1 Allergy status to other antibiotic agents; Z88.5 Allergy status to narcotic agent; Z90.710 Acquired absence of both cervix and uterus; Z90.49 Acquired absence of other specified parts of digestive tract; Z98.890 Other specified postprocedural states; Z79.899 Other long term (current) drug therapy; Z89.512 Acquired absence of left leg below knee; Z89.431 Acquired absence of right foot; Z86.14 Personal history of Methicillin resistant Staphylococcus aureus infection; Z79.4 Long term (current) use of insulin; Z89.432 Acquired absence of left foot; Z91.14 Patient's other noncompliance with medication regimen
CPT/HCPCS: 36415; 51703; 71045; 71046; 73552; 73590; 73701; 80048; 80053; 80069; 80202; 81001; 82010; 82803; 82947; 83605; 83735; 84100; 85014; 85018; 85025; 85027; 85651; 86140; 87040; 93005; 93010; 93971; 96365; 96366; 96375; 99285-25; A9270; C9113; J1815; J1885; J2405; J2543; J2550; J3370; J3480; J7030; J7042; J7050; J7060; J7120; Q9967; U0004

== ENCOUNTER 2020-12-20 05:13 | Inpatient (IN) | payer OTHER ==
[~2020-12-20] VITALS: Ht 172.7 cm; Wt 74.8 kg
[~2020-12-20 05:13] MED LIST changes: +ASCORBIC ACID500 M1 PO; +Acetaminophen325 M1 PO; +BACLOFEN5 M1 PO; +BASAGLAR K100 UNIT/1 SC; +BUSPIRONE HCL7.5 MG PO; +CO Q-10100 MG PO; +DOCU100 PO; +DULO60 PO; +FEROSUL325 M1 PO; +Hydroxyzine HCl50 MG PO; +IMITREX50 MG PO; +INDO50 PO; +KETO10 PO; +MIRALAX17 G3 PO; +Naloxone H0.4 MG/11 SC; +Neurontin300 MG PO; +OMEP20ER PO; +ONE-A-DAY PREN1 EAC1 PO; +PERCOCET 10-321 EAC1 PO; +PRAZOSIN HCL1 M2 PO; +Prinivil10 MG PO; +SENN187 PO; +VISBIOME 112.51 EACH PO; +Vitamin D2000 UNIT PO
[2020-12-20 06:09] LABS: BASOPHILS PERCENT AUTO 1 % (0-2); EOSINOPHILS PERCENT AUTO 0 % (0-6); Hematocrit 45.9 % (33.0-51.0); Hemoglobin 14.2 g/dL (11.5-16.0); IMMATURE GRAN PERCENT AUTO 1 % (0-1); LYMPHOCYTES PERCENT AUTO 17 % (21-46); MONOCYTES ABSOLUTE AUTO 0.83 K/mm3 (0.16-1.47); MONOCYTES PERCENT AUTO 5 % (4-13); Mean Corpuscular HGB Conc 30.9 g/dL (31.5-36.5); Mean Corpuscular Volume 91 fL (80-100); Mean Platelet Volume 10.6 fL (9.1-12.4); NEUTROPHILS ABSOLUTE AUTO 13.03 K/mm3 (1.96-9.15); NEUTROPHILS PERCENT AUTO 77 % (41-73); Platelet Count 435 K/mm3 (150-400); RDW Coefficient Variation 13.8 % (11.7-14.2); RDW Standard Deviation 45.8 fL (35.1-46.3); Red Blood Cell Count 5.07 M/mm3 (3.80-5.20); White Blood Cell Count 16.96 K/mm3 (4.00-11.30)
[2020-12-20 06:14] LABS: Base Excess Venous -25.7 mmol/L; Bicarbonate Venous 8.5 mmol/L (24.0-30.0); PCO2 Venous 19.9 mmHg (38-42); PO2 Venous 201 mmHg (38-42); pH Blood Venous 7.02 (7.34-7.37)
[2020-12-20 06:48] LABS: Alanine Aminotransfer (ALT/SGP 26 U/L (12-78); Alk Phos 147 U/L (50-136); Anion Gap 25 mmol/L (6-16); Aspartate Aminotrans (AST/SGOT 16 U/L (12-37); Bilirubin, Total 0.4 mg/dL (0.1-1.0); Blood Urea Nitrogen 33 mg/dL (8-24); Bun/Creatinine Ratio 40.2 (12.0-20.0); CO2, Blood 7 mmol/L (21-32); Chloride, Blood 92 mmol/L (98-108); Creatinine, Blood 0.82 mg/dL (0.40-1.00); Glomerular Filtration Rate >60 (60-); Glucose, Blood 638 mg/dL (70-99); Potassium, Blood 5.5 mmol/L (3.5-5.5); Sodium, Blood 124 mmol/L (136-145)
[2020-12-20 08:19] LABS: Source, Urine Clean Catch
[2020-12-20 08:28] LABS: Appearance, Urine Clear (Clear); Bilirubin, Urine Neg (Neg); Blood, Urine 3+ (Neg); Color, Urine Yellow (P-Yellow); Glucose Qualitative, Urine 4+ (Neg); Ketones, Urine 4+ (Neg); Leukocyte Esterase, Urine Neg (Neg); Nitrite, Urine Neg (Neg); Protein, Urine 3+ (Neg); Urobilinogen, Urine NORM (Normal)
[2020-12-20 08:44] LABS: U Amphetamine Screen Not Detected; U Barbituate Screen Not Detected; U Benzodiazapine Screen Not Detected; U Buprenorphine Screen Not Detected; U Cannabinoids Screen Not Detected; U Cocaine Screen Not Detected; U Methadone Screen Not Detected; U Methamphetamine Screen DETECTED; U Opiates Screen Not Detected; U Oxycodone Screen Not Detected; U Phencyclidine Screen Not Detected; U Propoxyphene Screen Not Detected
[2020-12-20 08:59] LABS: Bacteria Few /hpf; Red Blood Cells, Urine 0-2 /hpf (0-2); Squamous Epithelial Cells Few /hpf (Few); White Blood Cells, Urine 0-2 /hpf (0-5); Yeast/Fungi Urine Rare /hpf
[2020-12-20 09:40] LABS: Glucose, Blood 499 mg/dL (70-99)
[2020-12-20 11:14] LABS: Glucose, Blood 480 mg/dL (70-99)
[2020-12-20 11:15] LABS: Albumin, Blood 3.7 g/dL (3.4-5.0); Blood Urea Nitrogen 35 mg/dL (8-24); Bun/Creatinine Ratio 41.4 (12.0-20.0); Calcium, Blood 8.3 mg/dL (8.5-10.1); Chloride, Blood 102 mmol/L (98-108); Creatinine, Blood 0.85 mg/dL (0.40-1.00); Glomerular Filtration Rate >60 (60-); Glucose, Blood 476 mg/dL (70-99); Potassium, Blood 4.4 mmol/L (3.5-5.5); Sodium, Blood 132 mmol/L (136-145)
[2020-12-20 11:17] LABS: Anion Gap 23 mmol/L (6-16); CO2, Blood 7 mmol/L (21-32)
[2020-12-20 14:41] LABS: Albumin, Blood 3.3 g/dL (3.4-5.0); Anion Gap 17 mmol/L (6-16); Blood Urea Nitrogen 29 mg/dL (8-24); Bun/Creatinine Ratio 41.3 (12.0-20.0); CO2, Blood 9 mmol/L (21-32); Calcium, Blood 7.8 mg/dL (8.5-10.1); Chloride, Blood 111 mmol/L (98-108); Glomerular Filtration Rate >60 (60-); Glucose, Blood 296 mg/dL (70-99); Phosphorus, Blood 2.7 mg/dL (2.5-4.9); Potassium, Blood 4.5 mmol/L (3.5-5.5); Sodium, Blood 137 mmol/L (136-145)
--- NOTE | 2020-12-20 16:37 | NUR ---
SHIFT SUMMARY NO ACUTE EVENTS SINCE ARRIVAL TO UNIT. PT IS ORIENTED BUT IS LETHARGIC, WILL ANSWER SOME QUESTIONS BUT APPEARS TO FALL ASLEEP MID-SENTENCE AT TIMES. PT DECLINED ATTEMPT TO PLACE POWERGLIDE. PT HAD ONE LARGE BOUGHT OF EMESIS, HAS BEEN NAUSEATED AND DRY HEAVING THROUGHOUT SHIFT. 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 VITALS HAVE REMAINED STABLE, HOWEVER PT HAS BEEN TRENDING HYPERTENSIVE. DR. RIVERS NOTIFIED, ORDERS FOR IV METOPROLOL GIVEN, ADMINSTERED PER EMAR. PT IS ON ROOM AIR, TOLERATING WELL. PT WAS ABLE TO VOID IN BEDPAN TODAY. PT REPOSITIONS SELF IN BED WITHOUT ASSISTANCE. 2 IV FLUID BOLUSES COMPLETED ONCE ARRIVED TO UNIT, INSULIN GTT RUNNING, D5 IN 1/2 NS WITH 20 MEQ K+ STARTED PER EMAR, VERIFIED POTASSIUM CONTENT WITH DR. RIVERS.
[2020-12-20 19:22] LABS: Albumin, Blood 3.2 g/dL (3.4-5.0); Anion Gap 12 mmol/L (6-16); Blood Urea Nitrogen 24 mg/dL (8-24); Bun/Creatinine Ratio 40.7 (12.0-20.0); CO2, Blood 12 mmol/L (21-32); Calcium, Blood 7.8 mg/dL (8.5-10.1); Chloride, Blood 114 mmol/L (98-108); Creatinine, Blood 0.59 mg/dL (0.40-1.00); Glomerular Filtration Rate >60 (60-); Glucose, Blood 259 mg/dL (70-99); Magnesium, Blood 1.7 mg/dL (1.6-2.4); Phosphorus, Blood 2.1 mg/dL (2.5-4.9); Potassium, Blood 4.5 mmol/L (3.5-5.5); Sodium, Blood 138 mmol/L (136-145)
--- NOTE | 2020-12-20 21:52 | NUR ---
ASSUMED CARE AT 1900 PT LAYING IN BED LETHARGIC BUT ALERT/ORIENTED X4, ONLY WAKES TO VERBAL STIMULI AND DOES NOT USE THE CALL LIGHT; JUST CALLS OUT WHEN NEEDING HELP. SPO2 >95% ON RA. HR 100-110. SBP 150-160'S. PT HAVING SMALL EPISODES OF EMISIS FOLLOWING EATING ICE CHIPS; ENCOURAGING PT TO NOT EAT ICE CHIPS AND WILL REMOVE THEM; PRN ZOFRAN GIVEN AND HELPFUL. INSULIN INFUSING AT 3UNITS/HR. D5 1/2NS WITH 20MEQ OF POTASSIUM INFUSING AT 150ML/HR. SEE SHIFT ASSESSMENT FOR FULL ASSESSMENT.
[2020-12-20 22:45] LABS: Albumin, Blood 3.3 g/dL (3.4-5.0); Anion Gap 10 mmol/L (6-16); Blood Urea Nitrogen 19 mg/dL (8-24); Bun/Creatinine Ratio 32.3 (12.0-20.0); CO2, Blood 15 mmol/L (21-32); Calcium, Blood 8.1 mg/dL (8.5-10.1); Chloride, Blood 113 mmol/L (98-108); Creatinine, Blood 0.59 mg/dL (0.40-1.00); Glomerular Filtration Rate >60 (60-); Glucose, Blood 251 mg/dL (70-99); Magnesium, Blood 1.8 mg/dL (1.6-2.4); Phosphorus, Blood 1.7 mg/dL (2.5-4.9); Potassium, Blood 4.3 mmol/L (3.5-5.5); Sodium, Blood 138 mmol/L (136-145)
--- NOTE | 2020-12-20 23:09 | NUR ---
UPDATE NOTIFIED DR DANIELSON REGARDING PT PHOS LAB OF 1.7. DR DANIELSON STATED THAT THEY WILL ENTER ORDERS TO ADDRESS THIS.
[2020-12-21 05:31] LABS: Hematocrit 32.4 % (33.0-51.0); Hemoglobin 10.8 g/dL (11.5-16.0); Mean Corpuscular HGB 28.3 pg (26.0-34.0); Mean Corpuscular HGB Conc 33.3 g/dL (31.5-36.5); Platelet Count 310 K/mm3 (150-400); RDW Coefficient Variation 13.8 % (11.7-14.2); RDW Standard Deviation 42.8 fL (35.1-46.3); Red Blood Cell Count 3.82 M/mm3 (3.80-5.20); White Blood Cell Count 13.63 K/mm3 (4.00-11.30)
[2020-12-21 05:32] LABS: Mean Corpuscular Volume 85 fL (80-100)
[2020-12-21 05:51] LABS: Alanine Aminotransfer (ALT/SGP 17 U/L (12-78); Albumin, Blood 2.6 g/dL (3.4-5.0); Albumin/Globulin Ratio 0.9 (0.8-1.8); Alk Phos 91 U/L (50-136); Anion Gap 10 mmol/L (6-16); Aspartate Aminotrans (AST/SGOT 11 U/L (12-37); Bilirubin, Total 0.4 mg/dL (0.1-1.0); Blood Urea Nitrogen 14 mg/dL (8-24); Bun/Creatinine Ratio 28.9 (12.0-20.0); CO2, Blood 16 mmol/L (21-32); Calcium, Blood 7.5 mg/dL (8.5-10.1); Chloride, Blood 112 mmol/L (98-108); Creatinine, Blood 0.49 mg/dL (0.40-1.00); Glomerular Filtration Rate >60 (60-); Glucose, Blood 244 mg/dL (70-99); Potassium, Blood 3.5 mmol/L (3.5-5.5); Sodium, Blood 138 mmol/L (136-145); Total Protein, Blood 5.6 g/dL (6.4-8.2)
--- NOTE | 2020-12-21 06:09 | NUR ---
END OF SHIFT SUMMARY NO ACUTE EVENTS OVERNIGHT. PT SLEPT ON AND OFF T/O SHIFT. PT IS ALERT/ORIENTED BUT VERY LETHARGIC AND SLEEPS WHEN NOT STIMULATED, DOES NOT USE CALL LIGHT. SPO2 >95% ON RA. HR 90'S. SBP 120-170; POSITIONAL BP. PT HAD TWO EPISODES OF NAUSEA AND EMESIS; PRN ZOFRAN AVAILABLE, GIVEN, AND HELPFUL. NEW POWERGLIDE TO MJ FLUSHES BUT DOES NOT DRAW. INSULIN INFUSING AT 3UNITS/HR. SODIUM PHOS AND D5 1/2NS WITH 20 MEQ OF POTASSIUM INFUSING. WILL REPORT TO AM RN WHEN AVAILABLE.
--- NOTE | 2020-12-21 12:51 | NUR ---
REASSESSMENT PT HAS BEEN SLEEPING THROUGHOUT THE MORNING. ONLY WAKING UP TO COMPLAIN OF NAUSEA OR CRYING, THEN GOING RIGHT BACK TO SLEEP. ABOUT 1200 PT WOKE UP AND ASKED FOR SOMETHING TO EAT, STATES SHE ISN'T NAUSEOUS ANYMORE AND FEELS LIKE SHE'S "STARVING." hAD PT TAKE SOME SIPS OF WATER AND SHE WAS ABLE TO KEEP IT DOWN. CALLED DR. ROJAS AND SHE OK'D PT TO HAVE CLEAR LIQUIDS. ALSO GOT ORDER FOR CMP. LUNGS ARE CLEAR, RA, SR, BP STABLE. PT GOT UP TO THE BR TO VOID WITH WALKER. CONTINUING TO MONITOR.
[2020-12-21 14:02] LABS: Alanine Aminotransfer (ALT/SGP 18 U/L (12-78); Albumin, Blood 2.9 g/dL (3.4-5.0); Albumin/Globulin Ratio 0.9 (0.8-1.8); Alk Phos 98 U/L (50-136); Anion Gap 7 mmol/L (6-16); Aspartate Aminotrans (AST/SGOT 13 U/L (12-37); Bilirubin, Total 0.4 mg/dL (0.1-1.0); Blood Urea Nitrogen 9 mg/dL (8-24); Bun/Creatinine Ratio 18.1 (12.0-20.0); CO2, Blood 21 mmol/L (21-32); Calcium, Blood 8.1 mg/dL (8.5-10.1); Chloride, Blood 110 mmol/L (98-108); Globulin, Blood 3.3 g/dL (2.2-4.0); Glomerular Filtration Rate >60 (60-); Glucose, Blood 165 mg/dL (70-99); Sodium, Blood 138 mmol/L (136-145); Total Protein, Blood 6.2 g/dL (6.4-8.2)
--- NOTE | 2020-12-21 14:14 | NUR ---
CMP RESULTS BACK AND REPORTED TO DR. ROJAS. RECEIVED ORDERS FOR LANTUS AND TO ADVANCE PT'S DIET.
--- NOTE | 2020-12-21 16:45 | NUR ---
TRANSFER INSULIN GTT TURNED OFF 1 HOUR AFTER GIVING LONG ACTING INSULIN. DR. ROJAS BY TO SEE PT AND GAVE ORDERS FOR PT TO BE MEDICAL, NO TELE STATUS. MD WAS GOING TO DC PT BUT PT TOLD THIS NURSE EARLIER THAT SHE DIDN'T HAVE HER MEDS AT HOME AND THAT'S WHY SHE ENDED UP IN THE HOSPITAL. ASKED PT ABOUT THAT AND SHE SAYS HER PHARMACY HAS HER INSULIN NOW, BUT SHE DOESN'T THINK SHE WILL BE ABLE TO MAKE IT THERE BEFORE THEY CLOSE. DR. ROJAS THEN DECIDED TO KEEP PT OVERNIGHT AND WILL DC HER IN THE AM. PT GOT UP TO SHOWER WITH ASSISTANCE OF AIDES. SHE HAS BEEN DRINKING DIET PEPSI WITHOUT ANY NAUSEA. REPORT CALLED TO MEDICAL FLOOR AND PT TRANSFERRING TO 308 VIA WC WITH PCT. ALL BELONGINGS SENT UP WITH PT.
--- NOTE | 2020-12-21 17:00 | NUR ---
SHIFT SUMMARY PT IS AOX4. PT DENIES PAIN, N/V, SOB AT THIS TIME. PT ARRIVED TO UNIT FROM ICU AT APPROXIMATELY 1658. PT HAS NOT HAD VISITORS ON THIS UNIT. PT AMBULATES WELL WITH ONE ASSIST AND FWW. PT HAS POOR APPETITE DUE TO NAUSEA. PLAN IS FOR DC TOMORROW SO PT CAN GET INSULIN FROM PHARMACY. PT IS IN BED, CALL LIGHT IN REACH, BED IN LOW POSITION. THIS RN WILL CONTINUE TO MONITOR PT STATUS.
[2020-12-22 05:34] LABS: Hematocrit 31.1 % (33.0-51.0); Hemoglobin 10.5 g/dL (11.5-16.0); Mean Corpuscular HGB 27.8 pg (26.0-34.0); Mean Corpuscular HGB Conc 33.8 g/dL (31.5-36.5); Mean Corpuscular Volume 82 fL (80-100); Mean Platelet Volume 10.1 fL (9.1-12.4); Platelet Count 282 K/mm3 (150-400); RDW Coefficient Variation 14.4 % (11.7-14.2); RDW Standard Deviation 43.1 fL (35.1-46.3); Red Blood Cell Count 3.78 M/mm3 (3.80-5.20); White Blood Cell Count 6.74 K/mm3 (4.00-11.30)
[2020-12-22 06:00] LABS: Alanine Aminotransfer (ALT/SGP 23 U/L (12-78); Albumin, Blood 2.7 g/dL (3.4-5.0); Albumin/Globulin Ratio 0.9 (0.8-1.8); Alk Phos 91 U/L (50-136); Anion Gap 7 mmol/L (6-16); Aspartate Aminotrans (AST/SGOT 21 U/L (12-37); Bilirubin, Total 0.3 mg/dL (0.1-1.0); Blood Urea Nitrogen 11 mg/dL (8-24); Bun/Creatinine Ratio 20.3 (12.0-20.0); CO2, Blood 23 mmol/L (21-32); Calcium, Blood 8.3 mg/dL (8.5-10.1); Chloride, Blood 104 mmol/L (98-108); Creatinine, Blood 0.54 mg/dL (0.40-1.00); Globulin, Blood 2.9 g/dL (2.2-4.0); Glomerular Filtration Rate >60 (60-); Glucose, Blood 395 mg/dL (70-99); Potassium, Blood 3.6 mmol/L (3.5-5.5); Sodium, Blood 134 mmol/L (136-145); Total Protein, Blood 5.6 g/dL (6.4-8.2)
--- NOTE | 2020-12-22 06:03 | NUR ---
SHIFT SUMMARY S/P DKA, A/O X4, VSS, CBG REMAINS ELEVATED BUT LOWER THAN IT WAS AT ADMISSION, PT ABLE TO AMBULATE IN THE ROOM INDEPENDENTLY c FWW, DENIES PAIN, DENIES N/V, PT REPORTS BEING READY TO GO HOME WHEN ABLE TO, PLAN TO DC LATER TODAY. NO ACUTE EVENTS THIS SHIFT. CALL LIGHT IN REACH, WILL CTM AND REPORT TO DAY RN.
[2020-12-22] MEDS ORDERED: GABA300 PO (10:37)
[2020-12-22] MEDS ORDERED: LISI5 PO (10:37)
[2020-12-22] MEDS ORDERED: PANT20 PO (10:39)
--- NOTE | 2020-12-22 12:11 | NUR ---
DISCHARGED HOME WITH ALL PERSONAL BELONGINGS. TEACHBACK METHOD UTILIZED. PATIENT VERBALIZED UNDERSTANDING AND ALL OF HER QUESTIONS WERE ANSWERED.
== END 2020-12-22 12:00 | disposition home or self-care (01) | DRG 638 ==
LOC: ER 05:13 → ERHOLD 07:45 → ICUE 09:34 → MEDS 12-21 16:54
PROVIDERS: Emergency Medicine; Internal Medicine; ADMIT Internal Medicine
DX: E10.11 Type 1 diabetes mellitus with ketoacidosis with coma (principal); E87.1 Hypo-osmolality and hyponatremia; E86.0 Dehydration; E10.40 Type 1 diabetes mellitus with diabetic neuropathy, unspecified; J45.909 Unspecified asthma, uncomplicated; G40.909 Epilepsy, unspecified, not intractable, without status epilepticus; E87.5 Hyperkalemia; F17.210 Nicotine dependence, cigarettes, uncomplicated; F15.11 Other stimulant abuse, in remission; I10 Essential (primary) hypertension; G47.00 Insomnia, unspecified; F32.9 Major depressive disorder, single episode, unspecified; F41.9 Anxiety disorder, unspecified; K21.9 Gastro-esophageal reflux disease without esophagitis; Z79.4 Long term (current) use of insulin; Z79.899 Other long term (current) drug therapy; Z88.8 Allergy status to other drugs, medicaments and biological substances; Z88.1 Allergy status to other antibiotic agents; Z91.14 Patient's other noncompliance with medication regimen; Z89.431 Acquired absence of right foot; Z89.512 Acquired absence of left leg below knee; Z86.14 Personal history of Methicillin resistant Staphylococcus aureus infection
CPT/HCPCS: 36415; 80053; 80069; 81001; 82803; 82947; 83735; 85025; 85027; 96361; 96374; 96375; 99285-25; A9270; C1751; C9113; J1650; J1815; J2405; J2765; J7030; J7060

== ENCOUNTER 2021-01-12 18:44 | Emergency (ER) | payer OTHER ==
[~2021-01-12] VITALS: Ht 172.7 cm; Wt 63.5 kg
[~2021-01-12 18:44] MED LIST changes: -ASCORBIC ACID500 M1 PO; -Acetaminophen325 M1 PO; -BACLOFEN5 M1 PO; -BUSPIRONE HCL7.5 MG PO; -CO Q-10100 MG PO; -DOCU100 PO; -DULO60 PO; -FEROSUL325 M1 PO; -Hydroxyzine HCl50 MG PO; -IMITREX50 MG PO; -Neurontin300 MG PO; -OMEP20ER PO; -ONE-A-DAY PREN1 EAC1 PO; -PRAZOSIN HCL1 M2 PO; -Prinivil10 MG PO; -SENN187 PO; -Vitamin D2000 UNIT PO
[2021-01-12 20:02] LABS: Base Excess Venous -10.9 mmol/L; Bicarbonate Venous 16.9 mmol/L (24.0-30.0); PCO2 Venous 31.2 mmHg (38-42); PO2 Venous 62.9 mmHg (38-42)
[2021-01-12 20:12] LABS: BASOPHILS ABSOLUTE AUTO 0.05 K/mm3 (0.00-0.23); BASOPHILS PERCENT AUTO 1 % (0-2); EOSINOPHILS ABSOLUTE AUTO 0.02 K/mm3 (0.00-0.68); EOSINOPHILS PERCENT AUTO 0 % (0-6); Hematocrit 48.1 % (33.0-51.0); Hemoglobin 15.8 g/dL (11.5-16.0); IMMATURE GRAN ABSOLUTE AUTO 0.08 K/mm3 (0.00-0.10); IMMATURE GRAN PERCENT AUTO 1 % (0-1); LYMPHOCYTES ABSOLUTE AUTO 3.03 K/mm3 (0.84-5.20); LYMPHOCYTES PERCENT AUTO 28 % (21-46); MONOCYTES ABSOLUTE AUTO 0.98 K/mm3 (0.16-1.47); MONOCYTES PERCENT AUTO 9 % (4-13); Mean Corpuscular HGB 28.9 pg (26.0-34.0); Mean Corpuscular HGB Conc 32.8 g/dL (31.5-36.5); Mean Corpuscular Volume 88 fL (80-100); Mean Platelet Volume 10.3 fL (9.1-12.4); NEUTROPHILS ABSOLUTE AUTO 6.73 K/mm3 (1.96-9.15); NEUTROPHILS PERCENT AUTO 62 % (41-73); Platelet Count 411 K/mm3 (150-400); RDW Coefficient Variation 14.2 % (11.7-14.2); RDW Standard Deviation 45.5 fL (35.1-46.3); Red Blood Cell Count 5.46 M/mm3 (3.80-5.20); White Blood Cell Count 10.89 K/mm3 (4.00-11.30)
[2021-01-12 20:22] LABS: Alanine Aminotransfer (ALT/SGP 20 U/L (12-78); Albumin, Blood 4.2 g/dL (3.4-5.0); Albumin/Globulin Ratio 0.8 (0.8-1.8); Alk Phos 160 U/L (50-136); Anion Gap 13 mmol/L (6-16); Aspartate Aminotrans (AST/SGOT 14 U/L (12-37); Bilirubin, Total 0.5 mg/dL (0.1-1.0); Blood Urea Nitrogen 19 mg/dL (8-24); Bun/Creatinine Ratio 23.2 (12.0-20.0); CO2, Blood 18 mmol/L (21-32); Calcium, Blood 10.4 mg/dL (8.5-10.1); Chloride, Blood 103 mmol/L (98-108); Creatinine, Blood 0.82 mg/dL (0.40-1.00); Globulin, Blood 5.2 g/dL (2.2-4.0); Glomerular Filtration Rate >60 (60-); Glucose, Blood 242 mg/dL (70-99); Potassium, Blood 4.1 mmol/L (3.5-5.5); Sodium, Blood 134 mmol/L (136-145); Total Protein, Blood 9.4 g/dL (6.4-8.2)
[2021-01-12] MEDS ORDERED: ONDA4ODT MM (23:38)
[2021-01-13] MEDS ORDERED: BUSP5 (00:32)
[2021-01-13] MEDS ORDERED: ASCORBIC ACID500 M1 PO (00:32)
[2021-01-13] MEDS ORDERED: CO Q-10100 MG PO (00:32)
[2021-01-13] MEDS ORDERED: Neurontin300 MG PO (00:32)
[2021-01-13] MEDS ORDERED: ALBU90OI INH (00:32)
[2021-01-13] MEDS ORDERED: OMEP20ER PO (00:32)
[2021-01-13] MEDS ORDERED: Acetaminophen325 M1 PO (00:32)
[2021-01-13] MEDS ORDERED: DOCU100 PO (00:32)
[2021-01-13] MEDS ORDERED: ONE-A-DAY PREN1 EAC1 PO (00:32)
[2021-01-13] MEDS ORDERED: IMITREX50 MG PO (00:32)
[2021-01-13] MEDS ORDERED: PRAZOSIN HCL1 M2 PO (00:32)
[2021-01-13] MEDS ORDERED: TRAZ100 PO (00:32)
[2021-01-13] MEDS ORDERED: Vitamin D2000 UNIT PO (00:32)
[2021-01-13] MEDS ORDERED: SENN187 PO (00:32)
[2021-01-13] MEDS ORDERED: Hydroxyzine HCl50 MG PO (00:32)
[2021-01-13] MEDS ORDERED: FEROSUL325 M1 PO (00:32)
[2021-01-13] MEDS ORDERED: PANT20 PO (00:32)
[2021-01-13] MEDS ORDERED: ONDA4 PO (00:32)
[2021-01-13] MEDS ORDERED: Prinivil10 MG PO (00:32)
[2021-01-13] MEDS ORDERED: DULO60 PO (00:32)
[2021-01-13] MEDS ORDERED: BACLOFEN5 M1 PO (00:32)
== END 2021-01-13 00:30 | disposition home or self-care (01) ==
LOC: ER 18:44
PROVIDERS: Emergency Medicine
DX: E10.65 Type 1 diabetes mellitus with hyperglycemia (principal); Z79.4 Long term (current) use of insulin; F17.210 Nicotine dependence, cigarettes, uncomplicated; I10 Essential (primary) hypertension; J45.909 Unspecified asthma, uncomplicated; F12.90 Cannabis use, unspecified, uncomplicated; Z87.898 Personal history of other specified conditions; Z88.5 Allergy status to narcotic agent; Z88.8 Allergy status to other drugs, medicaments and biological substances
CPT/HCPCS: 74018; 80053; 82803; 82947; 83690; 85025; 96374; 96375; 99284-25; A9270; C1751; J1630; J3010; J7030

== ENCOUNTER 2021-01-18 11:09 | Inpatient (IN) | payer OTHER ==
[~2021-01-18] VITALS: Ht 160 cm; Wt 61.7 kg
[~2021-01-18 11:09] MED LIST changes: +ASCORBIC ACID500 M1 PO; +Acetaminophen325 M1 PO; +BACLOFEN5 M1 PO; +BUSP5; +CO Q-10100 MG PO; +DOCU100 PO; +DULO60 PO; +FEROSUL325 M1 PO; +Hydroxyzine HCl50 MG PO; +IMITREX50 MG PO; +Neurontin300 MG PO; +OMEP20ER PO; +ONDA4ODT MM; +ONE-A-DAY PREN1 EAC1 PO; +PRAZOSIN HCL1 M2 PO; +Prinivil10 MG PO; +SENN187 PO; +Vitamin D2000 UNIT PO
[2021-01-18 11:40] LABS: PCO2 Venous 19.7 mmHg (38-42); PO2 Venous 89.1 mmHg (38-42)
[2021-01-18 11:40] LABS: EOSINOPHILS ABSOLUTE AUTO 0.01 K/mm3 (0.00-0.68); EOSINOPHILS PERCENT AUTO 0 % (0-6); Hematocrit 47.6 % (33.0-51.0); Hemoglobin 13.7 g/dL (11.5-16.0); IMMATURE GRAN ABSOLUTE AUTO 0.44 K/mm3 (0.00-0.10); IMMATURE GRAN PERCENT AUTO 2 % (0-1); LYMPHOCYTES ABSOLUTE AUTO 3.28 K/mm3 (0.84-5.20); LYMPHOCYTES PERCENT AUTO 14 % (21-46); MONOCYTES ABSOLUTE AUTO 1.08 K/mm3 (0.16-1.47); MONOCYTES PERCENT AUTO 5 % (4-13); Mean Corpuscular HGB 29.1 pg (26.0-34.0); Mean Corpuscular HGB Conc 28.8 g/dL (31.5-36.5); Mean Corpuscular Volume 101 fL (80-100); Mean Platelet Volume 11.6 fL (9.1-12.4); NEUTROPHILS ABSOLUTE AUTO 19.32 K/mm3 (1.96-9.15); NEUTROPHILS PERCENT AUTO 80 % (41-73); Platelet Count 347 K/mm3 (150-400); RDW Standard Deviation 52.9 fL (35.1-46.3); Red Blood Cell Count 4.71 M/mm3 (3.80-5.20); White Blood Cell Count 24.19 K/mm3 (4.00-11.30)
[2021-01-18 11:45] LABS: Base Excess Venous -33.6 mmol/L; Bicarbonate Venous 4.5 mmol/L (24.0-30.0); pH Blood Venous > 6.80 (7.34-7.37)
[2021-01-18 11:46] LABS: BASOPHILS ABSOLUTE AUTO 0.06 K/mm3 (0.00-0.23); BASOPHILS PERCENT AUTO 0 % (0-2)
[2021-01-18 12:26] LABS: Alanine Aminotransfer (ALT/SGP 17 U/L (12-78); Albumin, Blood 3.3 g/dL (3.4-5.0); Albumin/Globulin Ratio 0.7 (0.8-1.8); Alk Phos 201 U/L (50-136); Anion Gap 29 mmol/L (6-16); Aspartate Aminotrans (AST/SGOT 19 U/L (12-37); Beta-hydroxybutyrate 122.2 mg/dL (0.2-2.8); Bilirubin, Total 0.4 mg/dL (0.1-1.0); Blood Urea Nitrogen 26 mg/dL (8-24); CO2, Blood 3 mmol/L (21-32); Calcium, Blood 9.1 mg/dL (8.5-10.1); Chloride, Blood 94 mmol/L (98-108); Globulin, Blood 4.6 g/dL (2.2-4.0); Glomerular Filtration Rate >60 (60-); Glucose, Blood 949 mg/dL (70-99); Potassium, Blood 6.9 mmol/L (3.5-5.5); Sodium, Blood 126 mmol/L (136-145); Total Protein, Blood 7.9 g/dL (6.4-8.2)
[2021-01-18 12:46] LABS: BASOPHILS ABSOLUTE MAN 0.24 K/mm3 (0.00-0.23); BASOPHILS PERCENT MAN 1 % (0-2); EOSINOPHILS PERCENT MAN 0 % (0-6); LYMPHOCYTES PERCENT MAN 12 % (21-46); MONOCYTES ABSOLUTE MAN 0.48 K/mm3 (0.16-1.47); MONOCYTES PERCENT MAN 2 % (4-13); MYELOCYTE ABSOLUTE MAN 0.24 K/mm3 (0.00-0.00); MYELOCYTE PERCENT MAN 1 % (0-0); NEUTROPHILS ABSOLUTE MAN 20.31 K/mm3 (1.96-9.15); SEG NEUTROPHILS PERCENT MAN 84 % (41-73); TOTAL CELLS COUNTED 100
[2021-01-18] MEDS ORDERED: INSULIN LI100 UNIT/6 SC (12:55)
[2021-01-18] MEDS ORDERED: VITAMIN D31000 UNI1 PO (12:56)
[2021-01-18] MEDS ORDERED: Prinivil10 MG PO (12:56)
[2021-01-18] MEDS ORDERED: CYMBALTA30 M2 PO (12:56)
[2021-01-18] MEDS ORDERED: BUSPIRONE HCL10 M4 PO (12:56)
[2021-01-18] MEDS ORDERED: BASAGLAR K100 UNIT/8 SC (12:57)
[2021-01-18] MEDS ORDERED: GABA300 PO (12:59)
[2021-01-18] MEDS ORDERED: LISI5 PO (13:00)
[2021-01-18] MEDS ORDERED: METO5A PO (13:01)
[2021-01-18] MEDS ORDERED: PANT20 PO (13:01)
[2021-01-18 13:11] LABS: Source, Urine Catheter
[2021-01-18 13:17] LABS: Bilirubin, Urine Neg (Neg); Blood, Urine 2+ (Neg); Glucose Qualitative, Urine 4+ (Neg); Ketones, Urine 4+ (Neg); Leukocyte Esterase, Urine Neg (Neg); Nitrite, Urine Neg (Neg); Protein, Urine 3+ (Neg); Urobilinogen, Urine NORM (Normal)
[2021-01-18 13:26] LABS: Appearance, Urine Clear (Clear); Color, Urine Pale Yellow (P-Yellow)
[2021-01-18 13:30] LABS: Bacteria Mod /hpf; Granular Casts 0-2 /lpf (0); Red Blood Cells, Urine 0-2 /hpf (0-2); Squamous Epithelial Cells Few /hpf (Few)
[2021-01-18 13:31] LABS: U Amphetamine Screen Not Detected; U Barbituate Screen Not Detected; U Benzodiazapine Screen Not Detected; U Buprenorphine Screen Not Detected; U Cannabinoids Screen Not Detected; U Cocaine Screen Not Detected; U Methadone Screen Not Detected; U Methamphetamine Screen DETECTED; U Opiates Screen Not Detected; U Oxycodone Screen Not Detected; U Phencyclidine Screen Not Detected; U Propoxyphene Screen Not Detected
[2021-01-18 13:58] LABS: Ethanol (Alcohol), Blood, Med <3 mg/dL; Magnesium, Blood 2.9 mg/dL (1.6-2.4)
[2021-01-18 14:24] LABS: Phosphorus, Blood 9.2 mg/dL (2.5-4.9)
[2021-01-18 15:02] LABS: SARS-Cov-2 (COVID-19) PCR, MMC NEGATIVE (NEGATIVE)
[2021-01-18 15:19] LABS: Glucose, Blood 796 mg/dL (70-99)
[2021-01-18 16:30] LABS: Base Excess Venous -24.7 mmol/L; Bicarbonate Venous 8.7 mmol/L (24.0-30.0); PCO2 Venous 13.8 mmHg (38-42); PO2 Venous 121 mmHg (38-42); pH Blood Venous 7.13 (7.34-7.37)
[2021-01-18 17:01] LABS: Blood Urea Nitrogen 26 mg/dL (8-24); Bun/Creatinine Ratio 31.2 (12.0-20.0); CO2, Blood 5 mmol/L (21-32); Calcium, Blood 7.7 mg/dL (8.5-10.1); Chloride, Blood 112 mmol/L (98-108); Creatinine, Blood 0.83 mg/dL (0.40-1.00); Glomerular Filtration Rate >60 (60-); Glucose, Blood 542 mg/dL (70-99)
[2021-01-18 17:02] LABS: Anion Gap 24 mmol/L (6-16); Potassium, Blood 3.6 mmol/L (3.5-5.5); Sodium, Blood 141 mmol/L (136-145)
[2021-01-18 18:35] LABS: Calcium, Ionized (POC) 1.15 mmol/L (1.10-1.46); Chloride (POC) 115 mmol/L (98-108); Creatinine (POC) 0.7 mg/dL (0.6-1.0); Glucose (ISTAT POC) 463 mg/dL (70-99); Hemoglobin (POC) 11.9 g/dL (12.0-16.0); Sodium (POC) 140 mmol/L (135-148); Total CO2 (POC) 8 mmol/L (21-32)
[2021-01-18 20:58] LABS: Anion Gap 18 mmol/L (6-16); Blood Urea Nitrogen 23 mg/dL (8-24); Bun/Creatinine Ratio 33.4 (12.0-20.0); CO2, Blood 9 mmol/L (21-32); Calcium, Blood 8.4 mg/dL (8.5-10.1); Chloride, Blood 115 mmol/L (98-108); Creatinine, Blood 0.69 mg/dL (0.40-1.00); Glomerular Filtration Rate >60 (60-); Glucose, Blood 395 mg/dL (70-99); Potassium, Blood 4.3 mmol/L (3.5-5.5); Sodium, Blood 142 mmol/L (136-145)
[2021-01-18 23:33] LABS: Anion Gap 13 mmol/L (6-16); Blood Urea Nitrogen 21 mg/dL (8-24); Bun/Creatinine Ratio 30.7 (12.0-20.0); CO2, Blood 14 mmol/L (21-32); Calcium, Blood 8.5 mg/dL (8.5-10.1); Chloride, Blood 117 mmol/L (98-108); Creatinine, Blood 0.68 mg/dL (0.40-1.00); Glomerular Filtration Rate >60 (60-); Glucose, Blood 334 mg/dL (70-99); Sodium, Blood 144 mmol/L (136-145)
[2021-01-19 06:03] LABS: BASOPHILS ABSOLUTE AUTO 0.03 K/mm3 (0.00-0.23); BASOPHILS PERCENT AUTO 0 % (0-2); EOSINOPHILS PERCENT AUTO 0 % (0-6); Hematocrit 32.4 % (33.0-51.0); IMMATURE GRAN ABSOLUTE AUTO 0.12 K/mm3 (0.00-0.10); IMMATURE GRAN PERCENT AUTO 1 % (0-1); LYMPHOCYTES ABSOLUTE AUTO 2.27 K/mm3 (0.84-5.20); LYMPHOCYTES PERCENT AUTO 14 % (21-46); MONOCYTES ABSOLUTE AUTO 1.17 K/mm3 (0.16-1.47); MONOCYTES PERCENT AUTO 7 % (4-13); Mean Corpuscular HGB 29.1 pg (26.0-34.0); Mean Platelet Volume 10.4 fL (9.1-12.4); NEUTROPHILS ABSOLUTE AUTO 13.09 K/mm3 (1.96-9.15); NEUTROPHILS PERCENT AUTO 79 % (41-73); Platelet Count 373 K/mm3 (150-400); RDW Coefficient Variation 13.9 % (11.7-14.2); RDW Standard Deviation 43.8 fL (35.1-46.3); Red Blood Cell Count 3.78 M/mm3 (3.80-5.20); White Blood Cell Count 16.68 K/mm3 (4.00-11.30)
[2021-01-19 06:07] LABS: Mean Corpuscular Volume 86 fL (80-100)
[2021-01-19 06:40] LABS: Anion Gap 8 mmol/L (6-16); Blood Urea Nitrogen 16 mg/dL (8-24); Bun/Creatinine Ratio 30.3 (12.0-20.0); CO2, Blood 19 mmol/L (21-32); Calcium, Blood 8.1 mg/dL (8.5-10.1); Chloride, Blood 117 mmol/L (98-108); Creatinine, Blood 0.53 mg/dL (0.40-1.00); Glomerular Filtration Rate >60 (60-); Glucose, Blood 212 mg/dL (70-99); Potassium, Blood 3.3 mmol/L (3.5-5.5); Sodium, Blood 144 mmol/L (136-145)
[2021-01-19 16:13] LABS: Anion Gap 7 mmol/L (6-16); Blood Urea Nitrogen 12 mg/dL (8-24); Bun/Creatinine Ratio 26.5 (12.0-20.0); CO2, Blood 20 mmol/L (21-32); Chloride, Blood 111 mmol/L (98-108); Creatinine, Blood 0.45 mg/dL (0.40-1.00); Glomerular Filtration Rate >60 (60-); Glucose, Blood 267 mg/dL (70-99); Potassium, Blood 3.5 mmol/L (3.5-5.5); Sodium, Blood 138 mmol/L (136-145)
--- NOTE | 2021-01-20 04:03 | NUR ---
SHIFT SUMMARY PATIENT HAD NO ACUTE CHANGES OBSERVED. AXOX 4, ON ROOM AIR. CBG 291. MEHTA PATENT AND DRAINING TO GRAVITY. PIV REMAINS INTACT. KCL INFUSING AT 100mL/HR. DENIES PAIN, SOB, AND N/V. CALL LIGHT IN REACH. BED IN LOWEST POSITION. WILL CONTINUE TO MONITOR UNTIL DAY SHIFT NURSE ASSUMES CARE.
[2021-01-20 07:15] LABS: Alanine Aminotransfer (ALT/SGP 12 U/L (12-78); Albumin, Blood 2.1 g/dL (3.4-5.0); Albumin/Globulin Ratio 0.7 (0.8-1.8); Alk Phos 120 U/L (50-136); Anion Gap 10 mmol/L (6-16); Aspartate Aminotrans (AST/SGOT 14 U/L (12-37); Bilirubin, Total 0.2 mg/dL (0.1-1.0); Blood Urea Nitrogen 10 mg/dL (8-24); Bun/Creatinine Ratio 20.9 (12.0-20.0); CO2, Blood 21 mmol/L (21-32); Calcium, Blood 7.8 mg/dL (8.5-10.1); Chloride, Blood 107 mmol/L (98-108); Creatinine, Blood 0.48 mg/dL (0.40-1.00); Globulin, Blood 3.1 g/dL (2.2-4.0); Glomerular Filtration Rate >60 (60-); Glucose, Blood 339 mg/dL (70-99); Potassium, Blood 3.5 mmol/L (3.5-5.5); Sodium, Blood 138 mmol/L (136-145)
[2021-01-20 07:21] LABS: Total Protein, Blood 5.2 g/dL (6.4-8.2)
[2021-01-20 09:38] LABS: Hematocrit 31.6 % (33.0-51.0); Hemoglobin 10.5 g/dL (11.5-16.0); Mean Corpuscular HGB 29.6 pg (26.0-34.0); Mean Corpuscular HGB Conc 33.2 g/dL (31.5-36.5); Mean Corpuscular Volume 89 fL (80-100); Mean Platelet Volume 10.3 fL (9.1-12.4); Platelet Count 281 K/mm3 (150-400); RDW Coefficient Variation 14.8 % (11.7-14.2); RDW Standard Deviation 48.9 fL (35.1-46.3); Red Blood Cell Count 3.55 M/mm3 (3.80-5.20); White Blood Cell Count 10.73 K/mm3 (4.00-11.30)
--- NOTE | 2021-01-20 20:15 | NUR ---
ALERT AND ORINTATED, CALL LIGHT IN REACH, INFUSING WITH NO S/SX OF INFECTION OR INFILTRATION, RM AIR, BSR SHARED WITH NOC NURSE
[2021-01-21 05:27] LABS: BASOPHILS ABSOLUTE AUTO 0.02 K/mm3 (0.00-0.23); BASOPHILS PERCENT AUTO 0 % (0-2); EOSINOPHILS ABSOLUTE AUTO 0.01 K/mm3 (0.00-0.68); EOSINOPHILS PERCENT AUTO 0 % (0-6); Hemoglobin 9.1 g/dL (11.5-16.0); IMMATURE GRAN ABSOLUTE AUTO 0.01 K/mm3 (0.00-0.10); IMMATURE GRAN PERCENT AUTO 0 % (0-1); LYMPHOCYTES ABSOLUTE AUTO 2.14 K/mm3 (0.84-5.20); LYMPHOCYTES PERCENT AUTO 34 % (21-46); MONOCYTES PERCENT AUTO 10 % (4-13); Mean Corpuscular HGB 29.4 pg (26.0-34.0); Mean Corpuscular HGB Conc 33.7 g/dL (31.5-36.5); Mean Corpuscular Volume 87 fL (80-100); Mean Platelet Volume 10.2 fL (9.1-12.4); NEUTROPHILS ABSOLUTE AUTO 3.56 K/mm3 (1.96-9.15); NEUTROPHILS PERCENT AUTO 56 % (41-73); Platelet Count 245 K/mm3 (150-400); RDW Coefficient Variation 14.7 % (11.7-14.2); RDW Standard Deviation 47.8 fL (35.1-46.3); Red Blood Cell Count 3.09 M/mm3 (3.80-5.20); White Blood Cell Count 6.34 K/mm3 (4.00-11.30)
[2021-01-21 05:55] LABS: Alanine Aminotransfer (ALT/SGP 16 U/L (12-78); Albumin/Globulin Ratio 0.6 (0.8-1.8); Alk Phos 109 U/L (50-136); Anion Gap 5 mmol/L (6-16); Aspartate Aminotrans (AST/SGOT 8 U/L (12-37); Bilirubin, Total 0.2 mg/dL (0.1-1.0); Blood Urea Nitrogen 13 mg/dL (8-24); Bun/Creatinine Ratio 26.7 (12.0-20.0); CO2, Blood 26 mmol/L (21-32); Calcium, Blood 8.3 mg/dL (8.5-10.1); Chloride, Blood 107 mmol/L (98-108); Creatinine, Blood 0.49 mg/dL (0.40-1.00); Globulin, Blood 3.1 g/dL (2.2-4.0); Glomerular Filtration Rate >60 (60-); Glucose, Blood 295 mg/dL (70-99); Potassium, Blood 3.6 mmol/L (3.5-5.5); Sodium, Blood 138 mmol/L (136-145); Total Protein, Blood 5.1 g/dL (6.4-8.2)
--- NOTE | 2021-01-21 07:21 | NUR ---
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 MEDICATED FOR PAIN ON SCALP X2 OVERNIGHT PER EMAR. PT IS EMOTIONAL AND TEARFUL AT TIMES. PT RECIEVED A SHOWER LAST NIGHT AND STATES SHE FEELS MUCH BETTER AFTER THIS. ABD PAD AND CURLEX APPLIED TO L STUMP AFTER SHOWER. VERY LITTLE DRAINAGE ON L STUMP. NEW IV PlACED ON L FA BY JUAN KINGSLEY. NO ACUTE CHANGES, VSS, CALL LIGHT WITHIN REACH. REPORT GIVEN TO AM NURSE
--- NOTE | 2021-01-21 12:07 | NUR ---
BENADRYL, TYLENOL, AND ONE TIME ORDER OF TORADOL PATIENT C/O OF SWELLING TO FACE AND HEADACHE. RECEIVED V.O. FROM DR. ROJAS FOR THE ABOVE LISTED MEDS. EMAR UPDATED.
--- NOTE | 2021-01-21 18:02 | NUR ---
PT SEEN BY DR. HOPE, I&D OF SCALP ABCESSES COMPLETED AT BEDSIDE. PT SEEN BY DR. CORBETT, NO NEW ORDERS AT THIS TIME. PT HAS CONTINED TO C/O PAIN R/T SCALP "SORES". MEDICATED T/O DAY. PT REPORTS THAT SHE IF "REALLY HUNGRY TODAY AND CAN'T SEEM TO GET FULL" AND HAS REQUESTED SNACKS TH/O DAY. TELE WAS NS RYTHM T/O DAY AND FINALLY D/C THIS AFTERNOON. NO OTHER ACUTE CHANGES TODAY.
--- NOTE | 2021-01-21 18:11 | NUR ---
PT REMAINED ON BEDREST TODAY. DESATS FREQUENTLY INTO 80-70'S W/ ACTIVITY. RT IN TO EVAL IN INCREASED AIRVOW TO 45L, FIO2@90. SATS IMPROVED TO 90'S. NO OTHER ACUTE CHANGES T/O DAY.
--- NOTE | 2021-01-22 06:25 | NUR ---
SHIFT SUMMARY- PT. MEDICATED FOR HEAD PAIN 1X THIS SHIFT W/GOOD EFFECT. PT. DENIED ANY OTHER NEEDS, SLEPT T/O THE NIGHT. CALL LIGHT WITHIN REACH AND SIDE RAILS UPX2. WILL CONT TO MONITOR.
--- NOTE | 2021-01-22 13:16 | NUR ---
UNWITNESSED FALL PATIENT REPORTED SHE HAD FALL, IT WAS UNWITNESSED. SEE POST FALL ASSESSMENT.
[2021-01-22 13:30] LABS: Vancomycin, Trough 7.3 ug/mL (5.0-10.0)
--- NOTE | 2021-01-22 16:37 | NUR ---
SHAYY MCFARLAND KCL PATIENT REQUESTING TO D/C ABOVE INFUSION. T.O. FROM REENA LYNN TO D/C.
--- NOTE | 2021-01-22 16:47 | NUR ---
Shift Summary A/Ox4, pleasant and cooperative with care. Patient reported an unwitnessed fall, no injuries noted. Appetite is excellent, requesting frequent snacks throughout the day. Medicated for head/scalp throbbing pain multiple times with minimal relief, although, patient seems more comfortable now. Tele: 85, tele d/c'd. Bed alarm on, supervision to bathroom, patient has been education on fall precautions and advised to call for bathroom assistance. Patient verbalized agreement.
--- NOTE | 2021-01-22 18:51 | NUR ---
MIGRAINE PATIENT C/O MIGRAINE AND REQUESTING IMITREX. RECEIVED T.O. FROM DR. ROJAS FOR 6MG IMITREX SC ONE TIME. ORDERS UPDATED.
[2021-01-23 05:14] LABS: Hematocrit 31.2 % (33.0-51.0); Hemoglobin 10.4 g/dL (11.5-16.0); Mean Corpuscular HGB 29.5 pg (26.0-34.0); Mean Corpuscular HGB Conc 33.3 g/dL (31.5-36.5); Mean Corpuscular Volume 89 fL (80-100); Mean Platelet Volume 10.4 fL (9.1-12.4); Platelet Count 329 K/mm3 (150-400); RDW Coefficient Variation 14.6 % (11.7-14.2); RDW Standard Deviation 47.4 fL (35.1-46.3); Red Blood Cell Count 3.52 M/mm3 (3.80-5.20); White Blood Cell Count 6.12 K/mm3 (4.00-11.30)
[2021-01-23 05:45] LABS: Alanine Aminotransfer (ALT/SGP 14 U/L (12-78); Albumin, Blood 2.1 g/dL (3.4-5.0); Albumin/Globulin Ratio 0.6 (0.8-1.8); Alk Phos 102 U/L (50-136); Anion Gap 6 mmol/L (6-16); Aspartate Aminotrans (AST/SGOT 7 U/L (12-37); Bilirubin, Total 0.2 mg/dL (0.1-1.0); Blood Urea Nitrogen 17 mg/dL (8-24); C-REACTIVE PROTEIN, EXT RANGE 0.799 mg/dL (0.000-0.300); CO2, Blood 28 mmol/L (21-32); Calcium, Blood 8.7 mg/dL (8.5-10.1); Chloride, Blood 101 mmol/L (98-108); Creatinine, Blood 0.55 mg/dL (0.40-1.00); Globulin, Blood 3.4 g/dL (2.2-4.0); Glomerular Filtration Rate >60 (60-); Glucose, Blood 380 mg/dL (70-99); Sodium, Blood 135 mmol/L (136-145); Total Protein, Blood 5.5 g/dL (6.4-8.2)
--- NOTE | 2021-01-23 06:56 | NUR ---
SHIFT SUMMARY PT IS A 41 Y/O FEMALE, ADMITTED FOR DKA. SHE IS A&O X 4, WITH L BKA, SBA TO THE BATHROOM. SHE WAS MEDICATED FOR KELLY WITH SQ IMITREX AND TORADOL/TYLENOL. SHE WAS MEDICATED ONCE FOR NAUSEA WITH PRN ZOFRAN. NO C/O SOB. VITAL SIGNS STABLE. SMALL AMOUNT OF DRAINAGE NOTED PER PT FROM HEAD ABSCESS. NO ACUTE CHANGES IN PT CONDITION NOTED DURING THE NIGHT. WILL CONTINUE TO MONITOR AND TREAT PER EMAR UNTIL HAND OFF TO DAY SHIFT RN.
[2021-01-23] MEDS ORDERED: VANCOMYCIN HCL1 G1 (11:58)
--- NOTE | 2021-01-23 12:22 | NUR ---
PATIENT DISCHARGED TO HOME, [facility] PROVIDING TRANSPORTATION. POWER GLIDE IV LEFT IN PLACE PT IS TO RECEIVE IV ABX AT ИВАН. L STUMP WOUND COVERED WITH GAUZE AND DAVE WRAP. VERBALIZED UNDERSTANDING OF D/C INSTRUCTIONS, WILL MAKE HER F/U APPT WITH DR. CORBETT. OFF UNIT VIA W/C AT 1214. NO PERSONAL BELONGINGS LEFT BEHIND IN ROOM.
== END 2021-01-23 12:10 | disposition home or self-care (01) | DRG 637 ==
LOC: ER 11:09 → ERHOLD 13:31 → MEDS 01-19 16:38
PROVIDERS: Emergency Medicine; Internal Medicine; Nurse Practitioner Acute Care; ADMIT Family Medicine
PROC: 0H90XZZ Drainage of Scalp Skin, External Approach (ICD-10-PCS; principal; 2021-01-21)
DX: E10.10 Type 1 diabetes mellitus with ketoacidosis without coma (principal); G92 Toxic encephalopathy; L02.811 Cutaneous abscess of head [any part, except face]; E87.1 Hypo-osmolality and hyponatremia; F15.10 Other stimulant abuse, uncomplicated; E10.42 Type 1 diabetes mellitus with diabetic polyneuropathy; J45.909 Unspecified asthma, uncomplicated; Z20.822 Contact with and (suspected) exposure to COVID-19; K21.9 Gastro-esophageal reflux disease without esophagitis; F41.9 Anxiety disorder, unspecified; F32.9 Major depressive disorder, single episode, unspecified; E87.5 Hyperkalemia; I10 Essential (primary) hypertension; G40.909 Epilepsy, unspecified, not intractable, without status epilepticus; T87.81 Dehiscence of amputation stump; E87.6 Hypokalemia; Y83.8 Other surgical procedures as the cause of abnormal reaction of the patient, or of later complication, without mention of misadventure at the time of the procedure; G47.00 Insomnia, unspecified; D63.8 Anemia in other chronic diseases classified elsewhere; E10.51 Type 1 diabetes mellitus with diabetic peripheral angiopathy without gangrene; E86.1 Hypovolemia; Z90.49 Acquired absence of other specified parts of digestive tract; Z90.710 Acquired absence of both cervix and uterus; Z88.5 Allergy status to narcotic agent; Z88.1 Allergy status to other antibiotic agents; Z98.890 Other specified postprocedural states; Z87.891 Personal history of nicotine dependence; Z86.14 Personal history of Methicillin resistant Staphylococcus aureus infection; Z91.14 Patient's other noncompliance with medication regimen; Z79.4 Long term (current) use of insulin; Z79.899 Other long term (current) drug therapy
CPT/HCPCS: 36415; 70450; 71045; 73590; 80047; 80048; 80053; 80202; 81001; 82010; 82803; 82947; 83605; 83735; 84100; 84702; 85014; 85025; 85027; 85651; 86140; 87040; 87077; 87081; 87086; 87147; 87186; 93005; 93010; 93306; 96365; 96366; 96375; 99285-25; A9270; C9113; G0480; J0696; J1170; J1650; J1815; J1885; J2405; J2765; J3030; J3370; J3480; J7030; J7070; U0004

== ENCOUNTER 2021-03-21 05:18 | Inpatient (IN) | payer OTHER ==
[~2021-03-21] VITALS: Ht 172.7 cm; Wt 55.2 kg
[~2021-03-21 05:18] MED LIST changes: +BASAGLAR K100 UNIT/8 SC; +BUSPIRONE HCL10 M4 PO; +CYMBALTA30 M2 PO; +INSULIN LI100 UNIT/6 SC; +VANCOMYCIN HCL1 G1; +VITAMIN D31000 UNI1 PO
[2021-03-21 05:41] LABS: BASOPHILS ABSOLUTE AUTO 0.07 K/mm3 (0.00-0.23); BASOPHILS PERCENT AUTO 1 % (0-2); EOSINOPHILS ABSOLUTE AUTO 0.01 K/mm3 (0.00-0.68); EOSINOPHILS PERCENT AUTO 0 % (0-6); Hematocrit 43.7 % (33.0-51.0); Hemoglobin 14.5 g/dL (11.5-16.0); IMMATURE GRAN ABSOLUTE AUTO 0.02 K/mm3 (0.00-0.10); IMMATURE GRAN PERCENT AUTO 0 % (0-1); LYMPHOCYTES ABSOLUTE AUTO 2.78 K/mm3 (0.84-5.20); LYMPHOCYTES PERCENT AUTO 30 % (21-46); MONOCYTES ABSOLUTE AUTO 0.41 K/mm3 (0.16-1.47); MONOCYTES PERCENT AUTO 5 % (4-13); Mean Corpuscular HGB 30.1 pg (26.0-34.0); Mean Corpuscular HGB Conc 33.2 g/dL (31.5-36.5); Mean Corpuscular Volume 91 fL (80-100); Mean Platelet Volume 10.8 fL (9.1-12.4); NEUTROPHILS PERCENT AUTO 64 % (41-73); Platelet Count 343 K/mm3 (150-400); RDW Coefficient Variation 12.9 % (11.7-14.2); RDW Standard Deviation 42.7 fL (35.1-46.3); Red Blood Cell Count 4.82 M/mm3 (3.80-5.20); White Blood Cell Count 9.19 K/mm3 (4.00-11.30)
[2021-03-21 05:42] LABS: Base Excess Venous -20.9 mmol/L; Bicarbonate Venous 10.8 mmol/L (24.0-30.0); PCO2 Venous 28.4 mmHg (38-42); PO2 Venous 115 mmHg (38-42)
[2021-03-21 06:07] LABS: Alanine Aminotransfer (ALT/SGP 24 U/L (12-78); Albumin, Blood 3.8 g/dL (3.4-5.0); Albumin/Globulin Ratio 0.9 (0.8-1.8); Alk Phos 120 U/L (50-136); Anion Gap 24 mmol/L (6-16); Aspartate Aminotrans (AST/SGOT 11 U/L (12-37); Bilirubin, Total 0.4 mg/dL (0.1-1.0); Blood Urea Nitrogen 16 mg/dL (8-24); Bun/Creatinine Ratio 25.8 (12.0-20.0); CO2, Blood 9 mmol/L (21-32); Calcium, Blood 9.3 mg/dL (8.5-10.1); Chloride, Blood 94 mmol/L (98-108); Creatinine, Blood 0.62 mg/dL (0.40-1.00); Globulin, Blood 4.4 g/dL (2.2-4.0); Glomerular Filtration Rate >60 (60-); Glucose, Blood 586 mg/dL (70-99); Potassium, Blood 4.6 mmol/L (3.5-5.5); Sodium, Blood 127 mmol/L (136-145); Total Protein, Blood 8.2 g/dL (6.4-8.2)
[2021-03-21 06:45] LABS: Source, Urine Clean Catch
[2021-03-21 06:57] LABS: Bilirubin, Urine Neg (Neg); Blood, Urine 1+ (Neg); Glucose Qualitative, Urine 4+ (Neg); Ketones, Urine 4+ (Neg); Leukocyte Esterase, Urine Neg (Neg); Nitrite, Urine Neg (Neg); Protein, Urine 2+ (Neg); Urobilinogen, Urine NORM (Normal)
[2021-03-21 07:10] LABS: Beta-hydroxybutyrate 108.8 mg/dL (0.2-2.8); Magnesium, Blood 2.2 mg/dL (1.6-2.4)
[2021-03-21 07:10] LABS: U Amphetamine Screen Not Detected; U Barbituate Screen Not Detected; U Benzodiazapine Screen Not Detected; U Buprenorphine Screen Not Detected; U Cannabinoids Screen DETECTED; U Cocaine Screen Not Detected; U Methadone Screen Not Detected; U Methamphetamine Screen Not Detected; U Opiates Screen Not Detected; U Oxycodone Screen Not Detected; U Phencyclidine Screen Not Detected; U Propoxyphene Screen Not Detected
[2021-03-21 07:18] LABS: Appearance, Urine Clear (Clear); Bacteria Not Seen /hpf; Color, Urine Yellow (P-Yellow); Red Blood Cells, Urine Rare /hpf (0-2); Squamous Epithelial Cells Not Seen /hpf (Few); White Blood Cells, Urine Not Seen /hpf (0-5)
[2021-03-21 08:02] LABS: SARS-Cov-2 (COVID-19) PCR, MMC NEGATIVE (NEGATIVE)
[2021-03-21 10:40] LABS: Hematocrit 40.3 % (33.0-51.0)
[2021-03-21] MEDS ORDERED: Prinivil10 MG PO (11:36)
[2021-03-21] MEDS ORDERED: BUSPIRONE HCL PO (11:36)
[2021-03-21 14:09] LABS: Anion Gap 17 mmol/L (6-16); Blood Urea Nitrogen 17 mg/dL (8-24); Bun/Creatinine Ratio 33.7 (12.0-20.0); CO2, Blood 9 mmol/L (21-32); Calcium, Blood 8.5 mg/dL (8.5-10.1); Chloride, Blood 109 mmol/L (98-108); Creatinine, Blood 0.51 mg/dL (0.40-1.00); Glomerular Filtration Rate >60 (60-); Glucose, Blood 330 mg/dL (70-99); Potassium, Blood 4.6 mmol/L (3.5-5.5); Sodium, Blood 135 mmol/L (136-145)
[2021-03-21 15:44] LABS: Hematocrit 43.2 % (33.0-51.0); Hemoglobin 14.2 g/dL (11.5-16.0)
[2021-03-21 16:06] LABS: Anion Gap 16 mmol/L (6-16); Blood Urea Nitrogen 16 mg/dL (8-24); Bun/Creatinine Ratio 31.9 (12.0-20.0); CO2, Blood 9 mmol/L (21-32); Calcium, Blood 8.7 mg/dL (8.5-10.1); Chloride, Blood 113 mmol/L (98-108); Glomerular Filtration Rate >60 (60-); Glucose, Blood 259 mg/dL (70-99); Potassium, Blood 4.7 mmol/L (3.5-5.5); Sodium, Blood 138 mmol/L (136-145)
[2021-03-21] MEDS ORDERED: ONDA4ODT MM (16:14)
[2021-03-21 18:56] LABS: Anion Gap 11 mmol/L (6-16); Blood Urea Nitrogen 14 mg/dL (8-24); Bun/Creatinine Ratio 29.5 (12.0-20.0); CO2, Blood 13 mmol/L (21-32); Calcium, Blood 8.8 mg/dL (8.5-10.1); Chloride, Blood 114 mmol/L (98-108); Creatinine, Blood 0.47 mg/dL (0.40-1.00); Glomerular Filtration Rate >60 (60-); Glucose, Blood 253 mg/dL (70-99); Potassium, Blood 4.4 mmol/L (3.5-5.5); Sodium, Blood 138 mmol/L (136-145)
[2021-03-21 21:28] LABS: Hematocrit 37.5 % (33.0-51.0)
[2021-03-21 21:44] LABS: Anion Gap 7 mmol/L (6-16); Blood Urea Nitrogen 13 mg/dL (8-24); Bun/Creatinine Ratio 26.2 (12.0-20.0); CO2, Blood 18 mmol/L (21-32); Calcium, Blood 8.5 mg/dL (8.5-10.1); Chloride, Blood 114 mmol/L (98-108); Glomerular Filtration Rate >60 (60-); Glucose, Blood 245 mg/dL (70-99); Potassium, Blood 4.4 mmol/L (3.5-5.5); Sodium, Blood 139 mmol/L (136-145)
[2021-03-22 03:35] LABS: Hematocrit 36.4 % (33.0-51.0); Hemoglobin 12.4 g/dL (11.5-16.0); Mean Corpuscular HGB 29.7 pg (26.0-34.0); Mean Corpuscular HGB Conc 34.1 g/dL (31.5-36.5); Mean Corpuscular Volume 87 fL (80-100); Mean Platelet Volume 10.2 fL (9.1-12.4); Platelet Count 323 K/mm3 (150-400); RDW Coefficient Variation 12.7 % (11.7-14.2); RDW Standard Deviation 40.3 fL (35.1-46.3); Red Blood Cell Count 4.18 M/mm3 (3.80-5.20); White Blood Cell Count 13.41 K/mm3 (4.00-11.30)
[2021-03-22 03:56] LABS: Alanine Aminotransfer (ALT/SGP 14 U/L (12-78); Albumin/Globulin Ratio 0.8 (0.8-1.8); Alk Phos 93 U/L (50-136); Anion Gap 8 mmol/L (6-16); Aspartate Aminotrans (AST/SGOT 13 U/L (12-37); Bilirubin, Total 0.3 mg/dL (0.1-1.0); Blood Urea Nitrogen 11 mg/dL (8-24); Bun/Creatinine Ratio 25.9 (12.0-20.0); CO2, Blood 17 mmol/L (21-32); Calcium, Blood 8.7 mg/dL (8.5-10.1); Chloride, Blood 113 mmol/L (98-108); Creatinine, Blood 0.42 mg/dL (0.40-1.00); Globulin, Blood 3.6 g/dL (2.2-4.0); Glomerular Filtration Rate >60 (60-); Glucose, Blood 203 mg/dL (70-99); Magnesium, Blood 1.8 mg/dL (1.6-2.4); Phosphorus, Blood 1.3 mg/dL (2.5-4.9); Sodium, Blood 138 mmol/L (136-145); Total Protein, Blood 6.6 g/dL (6.4-8.2)
[2021-03-22 10:12] LABS: Anion Gap 6 mmol/L (6-16); Blood Urea Nitrogen 10 mg/dL (8-24); Bun/Creatinine Ratio 21.4 (12.0-20.0); CO2, Blood 20 mmol/L (21-32); Calcium, Blood 8.3 mg/dL (8.5-10.1); Chloride, Blood 112 mmol/L (98-108); Creatinine, Blood 0.47 mg/dL (0.40-1.00); Ferritin, Serum 42 ng/mL (8-252); Glomerular Filtration Rate >60 (60-); Glucose, Blood 199 mg/dL (70-99); Iron Serum 124 ug/dL (50-170); Percent Saturation 46.6 % (15.0-50.0); Potassium, Blood 3.6 mmol/L (3.5-5.5); Sodium, Blood 138 mmol/L (136-145); Total Iron Binding Capacity 266 ug/dL (250-450)
[2021-03-23 05:14] LABS: Hematocrit 32.3 % (33.0-51.0); Hemoglobin 11.3 g/dL (11.5-16.0); Mean Corpuscular Volume 86 fL (80-100); Mean Platelet Volume 10.5 fL (9.1-12.4); Platelet Count 284 K/mm3 (150-400); RDW Coefficient Variation 12.8 % (11.7-14.2); RDW Standard Deviation 39.9 fL (35.1-46.3); Red Blood Cell Count 3.77 M/mm3 (3.80-5.20); White Blood Cell Count 8.02 K/mm3 (4.00-11.30)
[2021-03-23 05:48] LABS: Alanine Aminotransfer (ALT/SGP 19 U/L (12-78); Albumin, Blood 2.6 g/dL (3.4-5.0); Albumin/Globulin Ratio 0.8 (0.8-1.8); Alk Phos 85 U/L (50-136); Anion Gap 6 mmol/L (6-16); Aspartate Aminotrans (AST/SGOT 15 U/L (12-37); Bilirubin, Total 0.5 mg/dL (0.1-1.0); Blood Urea Nitrogen 11 mg/dL (8-24); Bun/Creatinine Ratio 22.8 (12.0-20.0); CO2, Blood 25 mmol/L (21-32); Calcium, Blood 8.7 mg/dL (8.5-10.1); Chloride, Blood 102 mmol/L (98-108); Creatinine, Blood 0.48 mg/dL (0.40-1.00); Globulin, Blood 3.2 g/dL (2.2-4.0); Glomerular Filtration Rate >60 (60-); Glucose, Blood 368 mg/dL (70-99); Potassium, Blood 3.2 mmol/L (3.5-5.5); Sodium, Blood 133 mmol/L (136-145); Total Protein, Blood 5.8 g/dL (6.4-8.2)
[2021-03-24 06:06] LABS: BASOPHILS ABSOLUTE AUTO 0.03 K/mm3 (0.00-0.23); BASOPHILS PERCENT AUTO 1 % (0-2); EOSINOPHILS ABSOLUTE AUTO 0.01 K/mm3 (0.00-0.68); EOSINOPHILS PERCENT AUTO 0 % (0-6); Hematocrit 32.3 % (33.0-51.0); IMMATURE GRAN ABSOLUTE AUTO 0.01 K/mm3 (0.00-0.10); IMMATURE GRAN PERCENT AUTO 0 % (0-1); LYMPHOCYTES ABSOLUTE AUTO 2.97 K/mm3 (0.84-5.20); LYMPHOCYTES PERCENT AUTO 54 % (21-46); MONOCYTES ABSOLUTE AUTO 0.49 K/mm3 (0.16-1.47); MONOCYTES PERCENT AUTO 9 % (4-13); Mean Corpuscular HGB 29.6 pg (26.0-34.0); Mean Corpuscular HGB Conc 34.1 g/dL (31.5-36.5); Mean Corpuscular Volume 87 fL (80-100); Mean Platelet Volume 10.6 fL (9.1-12.4); NEUTROPHILS ABSOLUTE AUTO 1.99 K/mm3 (1.96-9.15); NEUTROPHILS PERCENT AUTO 36 % (41-73); Platelet Count 257 K/mm3 (150-400); RDW Coefficient Variation 12.9 % (11.7-14.2); RDW Standard Deviation 41.4 fL (35.1-46.3); Red Blood Cell Count 3.71 M/mm3 (3.80-5.20)
[2021-03-24 06:21] LABS: Magnesium, Blood 1.7 mg/dL (1.6-2.4)
[2021-03-24 06:22] LABS: Alanine Aminotransfer (ALT/SGP 17 U/L (12-78); Albumin, Blood 2.4 g/dL (3.4-5.0); Albumin/Globulin Ratio 0.8 (0.8-1.8); Alk Phos 79 U/L (50-136); Anion Gap 7 mmol/L (6-16); Aspartate Aminotrans (AST/SGOT 16 U/L (12-37); Bilirubin, Total 0.4 mg/dL (0.1-1.0); Blood Urea Nitrogen 9 mg/dL (8-24); Bun/Creatinine Ratio 18.7 (12.0-20.0); CO2, Blood 26 mmol/L (21-32); Calcium, Blood 8.5 mg/dL (8.5-10.1); Chloride, Blood 105 mmol/L (98-108); Creatinine, Blood 0.48 mg/dL (0.40-1.00); Glomerular Filtration Rate >60 (60-); Glucose, Blood 260 mg/dL (70-99); Phosphorus, Blood 2.4 mg/dL (2.5-4.9); Potassium, Blood 3.2 mmol/L (3.5-5.5); Sodium, Blood 138 mmol/L (136-145); Total Protein, Blood 5.4 g/dL (6.4-8.2)
[2021-03-24] MEDS ORDERED: GABA100 PO (10:30)
[2021-03-24] MEDS ORDERED: ACET325 PO (10:30)
[2021-03-24] MEDS ORDERED: PROM25 PO (10:31)
[2021-03-24] MEDS ORDERED: CRANBERRY CONC1 EAC1 PO (10:33)
== END 2021-03-24 14:45 | disposition home or self-care (01) | DRG 638 ==
LOC: ER 05:18 → ERHOLD 09:28 → ICUE 11:40 → MEDS 03-22 15:33
PROVIDERS: Emergency Medicine; Family Medicine; ADMIT Internal Medicine
DX: E10.10 Type 1 diabetes mellitus with ketoacidosis without coma (principal); E87.1 Hypo-osmolality and hyponatremia; Z20.822 Contact with and (suspected) exposure to COVID-19; R11.15 Cyclical vomiting syndrome unrelated to migraine; D64.9 Anemia, unspecified; F15.10 Other stimulant abuse, uncomplicated; E87.6 Hypokalemia; Z59.00 Homelessness unspecified; E10.42 Type 1 diabetes mellitus with diabetic polyneuropathy; F12.10 Cannabis abuse, uncomplicated; K21.9 Gastro-esophageal reflux disease without esophagitis; F41.9 Anxiety disorder, unspecified; F32.9 Major depressive disorder, single episode, unspecified; G47.00 Insomnia, unspecified; I10 Essential (primary) hypertension; E86.1 Hypovolemia; J45.909 Unspecified asthma, uncomplicated; G40.909 Epilepsy, unspecified, not intractable, without status epilepticus; F17.210 Nicotine dependence, cigarettes, uncomplicated; Z88.1 Allergy status to other antibiotic agents; Z88.5 Allergy status to narcotic agent; Z79.4 Long term (current) use of insulin; Z79.899 Other long term (current) drug therapy; Z90.49 Acquired absence of other specified parts of digestive tract; Z90.710 Acquired absence of both cervix and uterus; Z98.890 Other specified postprocedural states; Z89.512 Acquired absence of left leg below knee
CPT/HCPCS: 36415; 71045; 80048; 80053; 81001; 82010; 82728; 82803; 82947; 83540; 83550; 83735; 84100; 84443; 85014; 85018; 85025; 85027; 93005; 93010; 94762; 96365; 96366; 96375; 99285-25; A9270; C1751; C9113; J0780; J1815; J2405; J2550; J2765; J3480; J7030; J7060; U0004

== ENCOUNTER 2021-03-30 18:52 | Inpatient (IN) | payer OTHER ==
[~2021-03-30] VITALS: Ht 162.6 cm; Wt 53.6 kg
[~2021-03-30 18:52] MED LIST changes: +BUSPIRONE HCL PO; +CRANBERRY CONC1 EAC1 PO
[2021-03-30 19:28] LABS: BASOPHILS ABSOLUTE AUTO 0.14 K/mm3 (0.00-0.23); BASOPHILS PERCENT AUTO 1 % (0-2); EOSINOPHILS ABSOLUTE AUTO 0.01 K/mm3 (0.00-0.68); EOSINOPHILS PERCENT AUTO 0 % (0-6); Hematocrit 51.3 % (33.0-51.0); Hemoglobin 17.4 g/dL (11.5-16.0); IMMATURE GRAN ABSOLUTE AUTO 0.18 K/mm3 (0.00-0.10); IMMATURE GRAN PERCENT AUTO 1 % (0-1); LYMPHOCYTES ABSOLUTE AUTO 3.76 K/mm3 (0.84-5.20); LYMPHOCYTES PERCENT AUTO 22 % (21-46); MONOCYTES ABSOLUTE AUTO 1.32 K/mm3 (0.16-1.47); MONOCYTES PERCENT AUTO 8 % (4-13); Mean Corpuscular HGB 30.1 pg (26.0-34.0); Mean Corpuscular HGB Conc 33.9 g/dL (31.5-36.5); Mean Corpuscular Volume 89 fL (80-100); Mean Platelet Volume 10.5 fL (9.1-12.4); NEUTROPHILS ABSOLUTE AUTO 11.73 K/mm3 (1.96-9.15); NEUTROPHILS PERCENT AUTO 68 % (41-73); Platelet Count 452 K/mm3 (150-400); RDW Coefficient Variation 12.8 % (11.7-14.2); RDW Standard Deviation 41.4 fL (35.1-46.3); Red Blood Cell Count 5.78 M/mm3 (3.80-5.20); White Blood Cell Count 17.14 K/mm3 (4.00-11.30)
[2021-03-30 21:28] LABS: Salicylate 3.4 mg/dL (2.8-20.0)
[2021-03-30 21:31] LABS: Alanine Aminotransfer (ALT/SGP 26 U/L (12-78); Albumin, Blood 4.1 g/dL (3.4-5.0); Albumin/Globulin Ratio 0.8 (0.8-1.8); Alk Phos 141 U/L (50-136); Anion Gap 20 mmol/L (6-16); Aspartate Aminotrans (AST/SGOT 16 U/L (12-37); Bilirubin, Total 0.6 mg/dL (0.1-1.0); Blood Urea Nitrogen 33 mg/dL (8-24); Bun/Creatinine Ratio 28.2 (12.0-20.0); CO2, Blood 15 mmol/L (21-32); Calcium, Blood 9.8 mg/dL (8.5-10.1); Chloride, Blood 88 mmol/L (98-108); Creatinine, Blood 1.17 mg/dL (0.40-1.00); Globulin, Blood 5.3 g/dL (2.2-4.0); Glomerular Filtration Rate 51 (60-); Glucose, Blood 468 mg/dL (70-99); Potassium, Blood 4.4 mmol/L (3.5-5.5); Sodium, Blood 123 mmol/L (136-145); Total Protein, Blood 9.4 g/dL (6.4-8.2)
[2021-03-30 21:55] LABS: Acetaminophen, Random <2.0 ug/mL (10.0-30.0)
[2021-03-30 23:03] LABS: Beta-hydroxybutyrate 85.1 mg/dL (0.2-2.8)
[2021-03-31 02:03] LABS: Glucose, Blood 613 mg/dL (70-99)
[2021-03-31 03:10] LABS: U Amphetamine Screen DETECTED; U Barbituate Screen Not Detected; U Benzodiazapine Screen Not Detected; U Buprenorphine Screen Not Detected; U Cannabinoids Screen DETECTED; U Cocaine Screen Not Detected; U Methadone Screen Not Detected; U Methamphetamine Screen DETECTED; U Opiates Screen Not Detected; U Oxycodone Screen Not Detected; U Phencyclidine Screen Not Detected; U Propoxyphene Screen Not Detected
[2021-03-31 03:25] LABS: Glucose (ISTAT POC) 552 mg/dL (70-99)
[2021-03-31 03:28] LABS: BASOPHILS ABSOLUTE AUTO 0.12 K/mm3 (0.00-0.23); BASOPHILS PERCENT AUTO 1 % (0-2); EOSINOPHILS PERCENT AUTO 0 % (0-6); Hematocrit 42.8 % (33.0-51.0); Hemoglobin 14.9 g/dL (11.5-16.0); IMMATURE GRAN ABSOLUTE AUTO 0.24 K/mm3 (0.00-0.10); IMMATURE GRAN PERCENT AUTO 1 % (0-1); LYMPHOCYTES ABSOLUTE AUTO 3.25 K/mm3 (0.84-5.20); LYMPHOCYTES PERCENT AUTO 14 % (21-46); MONOCYTES ABSOLUTE AUTO 1.87 K/mm3 (0.16-1.47); MONOCYTES PERCENT AUTO 8 % (4-13); Mean Corpuscular HGB 30.1 pg (26.0-34.0); Mean Corpuscular HGB Conc 34.8 g/dL (31.5-36.5); Mean Corpuscular Volume 87 fL (80-100); Mean Platelet Volume 10.4 fL (9.1-12.4); NEUTROPHILS ABSOLUTE AUTO 18.11 K/mm3 (1.96-9.15); NEUTROPHILS PERCENT AUTO 77 % (41-73); Platelet Count 494 K/mm3 (150-400); RDW Coefficient Variation 12.7 % (11.7-14.2); RDW Standard Deviation 39.8 fL (35.1-46.3); Red Blood Cell Count 4.95 M/mm3 (3.80-5.20); White Blood Cell Count 23.59 K/mm3 (4.00-11.30)
[2021-03-31 03:48] LABS: Albumin, Blood 3.5 g/dL (3.4-5.0); Albumin/Globulin Ratio 0.8 (0.8-1.8); Bilirubin, Total 0.5 mg/dL (0.1-1.0); Calcium, Blood 9.1 mg/dL (8.5-10.1); Creatinine, Blood 1.14 mg/dL (0.40-1.00); Globulin, Blood 4.2 g/dL (2.2-4.0); Potassium, Blood 3.9 mmol/L (3.5-5.5); Total Protein, Blood 7.7 g/dL (6.4-8.2)
--- NOTE | 2021-03-31 04:15 | NUR ---
ARRIVAL TO ICU PT ARRIVED TO ICU 7 AT 0055 VIA ED BED AND WAS TRANSFERED OVER TO ICU BED BY SLIDE SHEET. PT REACTIVE TO VERBAL STIMULI AND HAS SHORT BURSTS OF BEING AWAKE AND INTERACTING WITH STAFF FOLLOWED BY FALLING ASLEEP AND DIFFICULT TO AROUSE; PT IS A&O X4 WHEN AWAKE AND SELECTFUL ON ANSWERING QUESTIONS. SPO2 >98% ON RA. HR 120-130'S. BP STABLE. PT TOLERATING ICE CHIPS BUT IS IMPULSIVE AND WILL HAVE TOO MANY. PT ABLE TO USE BED PHILIP WITH ASSISTANCE; UA SENT. GLUCOSE UPON ARRIVAL TO ICU 613; INSLUIN GTT STARTED AT THAT TIME AT 5UNITS/HR. NS INFUSING AT 125ML/HR. SEE ADMISSION ASSESSMENT FOR FULL ASSESSMENT.
--- NOTE | 2021-03-31 06:21 | NUR ---
END OF SHIFT SUMMARY NO ACUTE EVENTS SINCE ADMISSION. PT IS A&O X3; WILL HAVE BURSTS OF ENERGY AND WANT WATER OR ICE CHIPS BUT WHEN DENIED THEM, PT STARTED TO CRY, ONCE RN LEFT THE ROOM PT STOPPED CRYING AND FELL BACK ASLEEP. SPO2 >98% ON RA. HR 120'S. SBP 120-140'S. ONE EPISODE OF EMISIS RESULTING FROM TOO MANY ICE CHIPS, ZOFRAN GIVEN X1. INSULIN INFUSING AT 4UNITS/HR; SEE FLOW SHEET FOR TITRATION. WILL REPORT TO AM RN WHEN AVAILABLE.
[2021-03-31 09:11] LABS: Anion Gap 9 mmol/L (6-16); Blood Urea Nitrogen 40 mg/dL (8-24); Bun/Creatinine Ratio 39.6 (12.0-20.0); CO2, Blood 26 mmol/L (21-32); Calcium, Blood 8.7 mg/dL (8.5-10.1); Chloride, Blood 100 mmol/L (98-108); Creatinine, Blood 1.01 mg/dL (0.40-1.00); Glomerular Filtration Rate >60 (60-); Glucose, Blood 244 mg/dL (70-99); Potassium, Blood 4.4 mmol/L (3.5-5.5); Sodium, Blood 135 mmol/L (136-145)
--- NOTE | 2021-03-31 09:22 | NUR ---
ASSUMED CARE REPORT FROM NORRIS KINGSLEY AT 0700. PT RESTING IN BED. WAKES c VERBAL STIMULI. RESTLESS WHEN AWAKE. C/O NAUSEA AND ABD PAIN, RELIEVED c ZOFRAN AND FENTANYL. ANSWERS QUESTIONS APPROPRIATELY. FOLLOWS COMMANDS. INSULIN GTT INFUSING, q1 CHEMBG. 2L NS BOLUS GIVEN, IVF CHANGED TO D5 1/2NS AT 100 ML/HR p 232 CHEMBG. GAP CLOSED, CO2 NORMAL. WILL TRANSITION TO HOME INSULIN. PT c SCATTERED HEALING WOUNDS. DENIES ACTIVE INFECTION OTHER THAN ON HEAD, SCABBING TO HEAD NOTED, NO DRAINAGE. REPORTS POLYURIA, STATES NORMAL FOR HER, DENIES DYSURIA. PT REPORTS METH USE, DENIES IV USE. ST ON MONITOR. BP STABLE. WILL CONTINUE TO MONITOR.
[2021-03-31 14:02] LABS: Anion Gap 7 mmol/L (6-16); Blood Urea Nitrogen 31 mg/dL (8-24); Bun/Creatinine Ratio 37.1 (12.0-20.0); CO2, Blood 23 mmol/L (21-32); Calcium, Blood 7.9 mg/dL (8.5-10.1); Chloride, Blood 105 mmol/L (98-108); Creatinine, Blood 0.84 mg/dL (0.40-1.00); Glomerular Filtration Rate >60 (60-); Glucose, Blood 275 mg/dL (70-99); Potassium, Blood 3.7 mmol/L (3.5-5.5); Sodium, Blood 135 mmol/L (136-145)
--- NOTE | 2021-03-31 17:17 | NUR ---
SHIFT SUMMARY PT HAD INTERMITTANT PERIODS OF N/V DURING SHIFT, TRIALED ADA DIET, ATE 75% OF LUNCH, NAUSEA AFTERWARDS, NO EMESIS. GAP CLOSED, CO2 NORMAL, INSULIN GTT OFF, LONG ACTING STARTED AT 1517. IVF CHANGED TO NS AT 100 ML/HR. PT HAS INTERMITTANT PAIN c NAUSEA, RELIEVED c FENTANYL OR IMPROVEMENT OF NAUSEA. PT MORE ALERT AND INTERACTIVE THAN THIS AM. USING CALL LIGHT APPROPRIATELY. COLOR AND MUCUS MEMBRANES IMPROVED. VOIDED TWICE ON BEDPAN. REPORTS DIZZINESS. ABLE TO REPOSITION SELF IN BED. VSS. POTENTIAL TRANSFER TO MED IF BMP IS WNL. WILL CONTINUE TO MONITOR UNTIL REPORT OR TRANSFER.
[2021-03-31 17:33] LABS: Anion Gap 8 mmol/L (6-16); Blood Urea Nitrogen 24 mg/dL (8-24); Bun/Creatinine Ratio 35.2 (12.0-20.0); CO2, Blood 23 mmol/L (21-32); Calcium, Blood 7.5 mg/dL (8.5-10.1); Chloride, Blood 102 mmol/L (98-108); Creatinine, Blood 0.68 mg/dL (0.40-1.00); Glomerular Filtration Rate >60 (60-); Glucose, Blood 193 mg/dL (70-99); Potassium, Blood 3.3 mmol/L (3.5-5.5); Sodium, Blood 133 mmol/L (136-145)
--- NOTE | 2021-03-31 20:37 | NUR ---
1899- REPORT RECEIVED FROM DAY SHIFT RN. 1941- PT TO BE TRANSFERRED TO ROOM 305. REPORT GIVEN TO RN. ALL BELONGINGS TRANSFERRED WITH PT.
[2021-04-01 05:24] LABS: BASOPHILS ABSOLUTE AUTO 0.03 K/mm3 (0.00-0.23); BASOPHILS PERCENT AUTO 0 % (0-2); EOSINOPHILS PERCENT AUTO 0 % (0-6); Hematocrit 29.4 % (33.0-51.0); Hemoglobin 10.1 g/dL (11.5-16.0); IMMATURE GRAN ABSOLUTE AUTO 0.06 K/mm3 (0.00-0.10); IMMATURE GRAN PERCENT AUTO 1 % (0-1); LYMPHOCYTES PERCENT AUTO 18 % (21-46); MONOCYTES ABSOLUTE AUTO 1.38 K/mm3 (0.16-1.47); MONOCYTES PERCENT AUTO 11 % (4-13); Mean Corpuscular HGB 30.3 pg (26.0-34.0); Mean Corpuscular HGB Conc 34.4 g/dL (31.5-36.5); Mean Corpuscular Volume 88 fL (80-100); Mean Platelet Volume 10.3 fL (9.1-12.4); NEUTROPHILS ABSOLUTE AUTO 8.58 K/mm3 (1.96-9.15); NEUTROPHILS PERCENT AUTO 70 % (41-73); Platelet Count 309 K/mm3 (150-400); RDW Coefficient Variation 13.2 % (11.7-14.2); RDW Standard Deviation 42.5 fL (35.1-46.3); Red Blood Cell Count 3.33 M/mm3 (3.80-5.20); White Blood Cell Count 12.25 K/mm3 (4.00-11.30)
[2021-04-01 06:11] LABS: Anion Gap 7 mmol/L (6-16); Blood Urea Nitrogen 14 mg/dL (8-24); Bun/Creatinine Ratio 25.5 (12.0-20.0); CO2, Blood 23 mmol/L (21-32); Calcium, Blood 8.1 mg/dL (8.5-10.1); Chloride, Blood 107 mmol/L (98-108); Creatinine, Blood 0.55 mg/dL (0.40-1.00); Glomerular Filtration Rate >60 (60-); Glucose, Blood 197 mg/dL (70-99); Potassium, Blood 3.3 mmol/L (3.5-5.5); Sodium, Blood 137 mmol/L (136-145)
--- NOTE | 2021-04-01 06:27 | NUR ---
VSS.PT TRANFERED FROM ICU @ 199903/31/21 PT IS A+OX4, ABLE TO VERBALIZE NEEDS. SHE WAS GIVEN PRN NAUSEA MEDICATION 2X THIS SHIFT AND PRN PAIN MED X1.PT ASSISTED TO BSC. IV FLUIDS CURRENTLY GOING @ 100ML/HR. CALL LIGHT IN REACH, SAFETY MEASURES IN PLACE
--- NOTE | 2021-04-01 18:34 | NUR ---
PT IS A/OX4, COOPERATIVE. PT IS TEARFULL AT TIMES REPORTS PAIN 10/10 WITH NAUSEA AND VOMITING. PT HAS VOMITED SMALL AMOUNTS OF EMISIS T/O THE DAY PT WAS MEDICATED FOR PAIN AND NAUSEA T/O THE DAY. THE HAS HAD LITTLE POM INTAKE. PT APPEARS TO BE BREATHING EASILY ON RA. PT IS UP TO THE [facility] IND. THE PT SLEPT OFF AND ON FOR MOST OF THE DAY. CALL LIGHT IN REACH, WILL CONTINUE TO MONITOR AND ASSESS FOR CHANGES
--- NOTE | 2021-04-02 05:42 | NUR ---
SHIFT SUMMARY PT IS A 41 Y/O FEMALE, ADMITTED FOR DKA. SHE IS A&O X 4, WITH A L BKA, INDEPENDENT TO THE BSC. PT REPORTS CONSISTENT ABD PAIN AND NAUSEA, HAS BEEN MEDICATED 3X FOR NAUSEA AND TWICE FOR PAIN WITH PRN FENTANYL. NO C/O ACUTE SOB. VITAL SIGNS STABLE. PT IS RECEIVING NS @ 100 ML/HR. NO OTHER ACUTE CHANGES IN PT CONDITION NOTED. WILL CONTINUE TO MONITOR AND TREAT PER EMAR UNTIL HAND OFF TO DAY SHIFT RN.
[2021-04-02 07:34] LABS: Anion Gap 6 mmol/L (6-16); Blood Urea Nitrogen 6 mg/dL (8-24); Bun/Creatinine Ratio 11.5 (12.0-20.0); CO2, Blood 26 mmol/L (21-32); Calcium, Blood 8.1 mg/dL (8.5-10.1); Chloride, Blood 108 mmol/L (98-108); Creatinine, Blood 0.52 mg/dL (0.40-1.00); Glomerular Filtration Rate >60 (60-); Glucose, Blood 101 mg/dL (70-99); Potassium, Blood 2.9 mmol/L (3.5-5.5); Sodium, Blood 140 mmol/L (136-145)
--- NOTE | 2021-04-02 16:59 | NUR ---
DAY SHIFT SUMMARY ALERT AND ORIENTED X4. INDEPENDENT TO BED SIDE TOILET. GI PANEL ORDERED, PT HAS NOT HAD A BM SINCE ORDER PLACES. CONSISTANT ABDOMINAL PAIN WITH NAUSEA AND VOMINTING THROUGH SHIFT. MEDICATIONS ADMINISTERED ORDERED. PT RECEIVED 2 POTASSIUM CHLORIDE PIGGY BACKS. TEARFUL AT TIMES. REFUSED PO MEDS D/T NAUSEA AND VOMITING. CALL LIGHT IN REACH.
--- NOTE | 2021-04-03 03:31 | NUR ---
SHIFT SUMMARY A/OX4, SBA TO BSC. L. BELOW THE KNEE AMP. CONTINUES TO C/O SEVERE N/V WELL ABD PAIN, MEDICATED PER EMAR. BED IN LOWEST POSITION WITH CALL LIGHT IN REACH. WILL CONTINUE TO MONITOR AND REPORT TO ONCOMING RN.
--- NOTE | 2021-04-03 18:13 | NUR ---
DISCHARGE NOTE PT DISCHARGED VIA ALBION WHEELCHAIR VAN, TAKEN DOWN TO VAN IN WHEELCHAIR, BELONGINGS WITH PT. APPOINTMENT MADE WITH PT PCP FOR FOLLOW UP, MEDS FAXED TO [facility]. EDUCATION GONE OVER WITH PT AND PAPERS SENT WITH PT HOME REVIEWING EDUCATION, QUESTIONS ANWERED AND DISCUSSED WITH PT. MILD TEMP BEFORE TRANSPORTATION ARRIVED, MD MCELROY NOTIFIED, TEMP RESOLVED BEFORE TRANSPORT ARRIVED. OKAYED TO CONTINUE WITH DISCHARGE PER MD NAVI
== END 2021-04-03 18:01 | disposition home or self-care (01) | DRG 637 ==
LOC: ER 18:52 → ICUE 18:53 → MEDS 03-31 20:13
PROVIDERS: Emergency Medicine; Family Medicine; Internal Medicine; Student in an Organized Health Care Education/Training Program; ADMIT Internal Medicine
DX: E10.10 Type 1 diabetes mellitus with ketoacidosis without coma (principal); G93.41 Metabolic encephalopathy; G92.9 Unspecified toxic encephalopathy; E87.1 Hypo-osmolality and hyponatremia; E10.42 Type 1 diabetes mellitus with diabetic polyneuropathy; E87.6 Hypokalemia; D72.829 Elevated white blood cell count, unspecified; J45.909 Unspecified asthma, uncomplicated; K21.9 Gastro-esophageal reflux disease without esophagitis; Z91.14 Patient's other noncompliance with medication regimen; E86.0 Dehydration; I10 Essential (primary) hypertension; F41.9 Anxiety disorder, unspecified; F32.A Depression, unspecified; F12.10 Cannabis abuse, uncomplicated; F15.10 Other stimulant abuse, uncomplicated; G40.909 Epilepsy, unspecified, not intractable, without status epilepticus; G47.00 Insomnia, unspecified; F17.210 Nicotine dependence, cigarettes, uncomplicated; Z86.14 Personal history of Methicillin resistant Staphylococcus aureus infection; Z90.710 Acquired absence of both cervix and uterus; Z90.49 Acquired absence of other specified parts of digestive tract; Z98.890 Other specified postprocedural states; Z79.4 Long term (current) use of insulin; Z79.899 Other long term (current) drug therapy; Z89.431 Acquired absence of right foot; Z89.512 Acquired absence of left leg below knee; Z88.5 Allergy status to narcotic agent; Z88.1 Allergy status to other antibiotic agents
CPT/HCPCS: 36415; 80048; 80053; 82010; 82947; 83690; 84703; 85025; 93005; 93010; 96372; 96375; 96376; 99285-25; A9270; C1751; C9113; G0378; G0480; J1630; J1650; J1815; J2405; J2550; J2765; J3010; J3480; J7030; J7042; J7120

== ENCOUNTER 2021-04-24 07:23 | Inpatient (IN) | payer OTHER ==
[~2021-04-24] VITALS: Ht 172.7 cm; Wt 54.0 kg
[2021-04-24 08:18] LABS: Base Excess Venous -23.1 mmol/L; Bicarbonate Venous 9.5 mmol/L (24.0-30.0); PO2 Venous 80.4 mmHg (38-42); pH Blood Venous 7.09 (7.34-7.37)
[2021-04-24 08:31] LABS: BASOPHILS PERCENT AUTO 1 % (0-2); EOSINOPHILS PERCENT AUTO 0 % (0-6); IMMATURE GRAN ABSOLUTE AUTO 0.15 K/mm3 (0.00-0.10); IMMATURE GRAN PERCENT AUTO 1 % (0-1); LYMPHOCYTES ABSOLUTE AUTO 2.36 K/mm3 (0.84-5.20); LYMPHOCYTES PERCENT AUTO 21 % (21-46); MONOCYTES ABSOLUTE AUTO 0.42 K/mm3 (0.16-1.47); MONOCYTES PERCENT AUTO 4 % (4-13); Mean Corpuscular HGB Conc 31.7 g/dL (31.5-36.5); Mean Corpuscular Volume 92 fL (80-100); Mean Platelet Volume 9.9 fL (9.1-12.4); NEUTROPHILS ABSOLUTE AUTO 8.15 K/mm3 (1.96-9.15); NEUTROPHILS PERCENT AUTO 73 % (41-73); RDW Coefficient Variation 12.7 % (11.7-14.2); RDW Standard Deviation 42.5 fL (35.1-46.3); Red Blood Cell Count 4.48 M/mm3 (3.80-5.20); White Blood Cell Count 11.18 K/mm3 (4.00-11.30)
[2021-04-24 08:33] LABS: Platelet Count 1009 K/mm3 (150-400)
[2021-04-24 08:41] LABS: Alanine Aminotransfer (ALT/SGP 16 U/L (12-78); Albumin, Blood 3.1 g/dL (3.4-5.0); Albumin/Globulin Ratio 0.5 (0.8-1.8); Alk Phos 171 U/L (50-136); Anion Gap 25 mmol/L (6-16); Aspartate Aminotrans (AST/SGOT 21 U/L (12-37); Bilirubin, Total 0.6 mg/dL (0.1-1.0); Blood Urea Nitrogen 27 mg/dL (8-24); Bun/Creatinine Ratio 32.8 (12.0-20.0); CO2, Blood 7 mmol/L (21-32); Calcium, Blood 9.8 mg/dL (8.5-10.1); Chloride, Blood 90 mmol/L (98-108); Creatinine, Blood 0.82 mg/dL (0.40-1.00); Globulin, Blood 5.8 g/dL (2.2-4.0); Glomerular Filtration Rate >60 (60-); Glucose, Blood 744 mg/dL (70-99); Potassium, Blood 5.7 mmol/L (3.5-5.5); Sodium, Blood 122 mmol/L (136-145); Total Protein, Blood 8.9 g/dL (6.4-8.2)
[2021-04-24 08:56] LABS: Source, Urine Clean Catch
[2021-04-24 09:05] LABS: Bilirubin, Urine Neg (Neg); Blood, Urine 1+ (Neg); Glucose Qualitative, Urine 4+ (Neg); Ketones, Urine 4+ (Neg); Leukocyte Esterase, Urine Neg (Neg); Nitrite, Urine Neg (Neg); Protein, Urine 3+ (Neg); Urobilinogen, Urine NORM (Normal)
[2021-04-24 09:11] LABS: Beta-hydroxybutyrate 105.1 mg/dL (0.2-2.8)
[2021-04-24 09:14] LABS: Appearance, Urine Clear (Clear); Color, Urine Yellow (P-Yellow)
[2021-04-24 09:20] LABS: Bacteria Not Seen /hpf; Red Blood Cells, Urine 0-2 /hpf (0-2); Squamous Epithelial Cells Few /hpf (Few); White Blood Cells, Urine 0-2 /hpf (0-5); Yeast/Fungi Urine Few /hpf
[2021-04-24 09:21] LABS: Granular Casts 0-2 /lpf (0)
[2021-04-24 09:45] LABS: Influenza A, PCR NEGATIVE (NEGATIVE); Influenza B, PCR NEGATIVE (NEGATIVE); Resp Syncytial Virus, PCR NEGATIVE (NEGATIVE); SARS-Cov-2 (COVID-19) PCR, MMC NEGATIVE (NEGATIVE)
[2021-04-24 10:37] LABS: U Amphetamine Screen Not Detected; U Barbituate Screen Not Detected; U Benzodiazapine Screen Not Detected; U Buprenorphine Screen Not Detected; U Cannabinoids Screen DETECTED; U Cocaine Screen Not Detected; U Methadone Screen Not Detected; U Methamphetamine Screen Not Detected; U Opiates Screen Not Detected; U Oxycodone Screen Not Detected; U Phencyclidine Screen Not Detected; U Propoxyphene Screen Not Detected
[2021-04-24 13:44] LABS: Adenovirus Not Detected (NOT DETECT); Bordetella pertussis Not Detected (NOT DETECT); Chlamydophila pneumoniae Not Detected (NOT DETECT); Coronavirus 229E Not Detected (NOT DETECT); Coronavirus HKU1 Not Detected (NOT DETECT); Coronavirus NL63 Not Detected (NOT DETECT); Coronavirus OC43 Not Detected (NOT DETECT); Human Metapneumovirus Not Detected (NOT DETECT); Human Rhinovirus/Enterovirus Not Detected (NOT DETECT); Influenza A/2009-H1 Not Detected (NOT DETECT); Influenza A/H1 Not Detected (NOT DETECT); Influenza A/H3 Not Detected (NOT DETECT); Influenza B Not Detected (NOT DETECT); Mycoplasma pneumoniae Not Detected (NOT DETECT); Parainfluenza Virus 1 Not Detected (NOT DETECT); Parainfluenza Virus 2 Not Detected (NOT DETECT); Parainfluenza Virus 3 Not Detected (NOT DETECT); Parainfluenza Virus 4 Not Detected (NOT DETECT); Respiratory Syncytial Virus Not Detected (NOT DETECT); SARS-Cov-2 (COVID-19), BioFire Not Detected (NOT DETECT)
[2021-04-24 13:49] LABS: Anion Gap 16 mmol/L (6-16); Blood Urea Nitrogen 25 mg/dL (8-24); Bun/Creatinine Ratio 34.8 (12.0-20.0); CO2, Blood 13 mmol/L (21-32); Calcium, Blood 8.9 mg/dL (8.5-10.1); Chloride, Blood 104 mmol/L (98-108); Creatinine, Blood 0.72 mg/dL (0.40-1.00); Glomerular Filtration Rate >60 (60-); Glucose, Blood 391 mg/dL (70-99); Potassium, Blood 4.1 mmol/L (3.5-5.5)
[2021-04-24 13:58] LABS: Sodium, Blood 133 mmol/L (136-145)
--- NOTE | 2021-04-24 17:45 | NUR ---
PT ARRIVED FROM ED AT 1610. NAUSEOUS. SHE IS ORIENTED TO SELF AND PLACE BUT DOES NOT ANSWER WHEN ASKED ABOUT DATE. ADMISSION DOCUMENTATION LIMITED PATIENT REFUSED TO ANSWER MANY QUESTIONS. URINATED 300CC IN COMMODE. SUPERVISION FOR TRANSFER TO COMMODE. ST. SBP 170S WHEN AGITATED, 150S WHEN CALM. REFUSED TO BE POKED FOR HER 1700 LABS, CONSENTED TO MIDLINE IV FOR LAB DRAWS. ROOM AIR. REDNESS NOTED ON COCCYX.
[2021-04-24 18:49] LABS: Hemoglobin 10.2 g/dL (11.5-16.0); Mean Corpuscular HGB 29.4 pg (26.0-34.0); Mean Platelet Volume 9.4 fL (9.1-12.4); Platelet Count 781 K/mm3 (150-400); RDW Coefficient Variation 12.6 % (11.7-14.2); Red Blood Cell Count 3.47 M/mm3 (3.80-5.20); White Blood Cell Count 15.22 K/mm3 (4.00-11.30)
[2021-04-24 18:53] LABS: Anion Gap 9 mmol/L (6-16); Blood Urea Nitrogen 24 mg/dL (8-24); Bun/Creatinine Ratio 32.8 (12.0-20.0); CO2, Blood 20 mmol/L (21-32); Calcium, Blood 8.7 mg/dL (8.5-10.1); Chloride, Blood 107 mmol/L (98-108); Creatinine, Blood 0.73 mg/dL (0.40-1.00); Glomerular Filtration Rate >60 (60-); Glucose, Blood 294 mg/dL (70-99); Potassium, Blood 3.7 mmol/L (3.5-5.5); Sodium, Blood 136 mmol/L (136-145)
[2021-04-24 18:55] LABS: Mean Corpuscular Volume 87 fL (80-100)
--- NOTE | 2021-04-24 22:16 | NUR ---
SHIFT ASSESSMENT ASSUMED CARE OF PT @ 1900. PT ALERT AND ORIENTED. C/O MILD NAUSEA, NO VOMITING, MEDICATED PER JUL. INSULIN & D5 INFUSING. Q1 CBG'S. VSS. AWAITING 2199 CHEM. WILL CONTINUE TO MONITOR.
[2021-04-24 22:43] LABS: Anion Gap 7 mmol/L (6-16); Blood Urea Nitrogen 23 mg/dL (8-24); Bun/Creatinine Ratio 38.8 (12.0-20.0); CO2, Blood 20 mmol/L (21-32); Calcium, Blood 8.3 mg/dL (8.5-10.1); Chloride, Blood 110 mmol/L (98-108); Creatinine, Blood 0.59 mg/dL (0.40-1.00); Glomerular Filtration Rate >60 (60-); Glucose, Blood 205 mg/dL (70-99); Potassium, Blood 3.4 mmol/L (3.5-5.5); Sodium, Blood 137 mmol/L (136-145)
[2021-04-25 05:04] LABS: Hematocrit 29.7 % (33.0-51.0); Hemoglobin 10.2 g/dL (11.5-16.0); Mean Corpuscular HGB 29.7 pg (26.0-34.0); Mean Corpuscular HGB Conc 34.3 g/dL (31.5-36.5); Mean Corpuscular Volume 87 fL (80-100); Mean Platelet Volume 9.6 fL (9.1-12.4); Platelet Count 775 K/mm3 (150-400); RDW Coefficient Variation 12.9 % (11.7-14.2); RDW Standard Deviation 40.9 fL (35.1-46.3); Red Blood Cell Count 3.43 M/mm3 (3.80-5.20); White Blood Cell Count 16.69 K/mm3 (4.00-11.30)
[2021-04-25 05:35] LABS: Alanine Aminotransfer (ALT/SGP 13 U/L (12-78); Albumin, Blood 2.4 g/dL (3.4-5.0); Alk Phos 124 U/L (50-136); Anion Gap 12 mmol/L (6-16); Aspartate Aminotrans (AST/SGOT 4 U/L (12-37); Bilirubin, Total 0.3 mg/dL (0.1-1.0); Blood Urea Nitrogen 20 mg/dL (8-24); Bun/Creatinine Ratio 35.9 (12.0-20.0); CO2, Blood 18 mmol/L (21-32); Calcium, Blood 8.8 mg/dL (8.5-10.1); Chloride, Blood 106 mmol/L (98-108); Creatinine, Blood 0.56 mg/dL (0.40-1.00); Glomerular Filtration Rate >60 (60-); Glucose, Blood 278 mg/dL (70-99); Magnesium, Blood 1.5 mg/dL (1.6-2.4); Phosphorus, Blood 1.5 mg/dL (2.5-4.9); Potassium, Blood 4.2 mmol/L (3.5-5.5); Sodium, Blood 136 mmol/L (136-145)
[2021-04-25 05:39] LABS: Albumin/Globulin Ratio 0.6 (0.8-1.8); Globulin, Blood 4.3 g/dL (2.2-4.0); Total Protein, Blood 6.7 g/dL (6.4-8.2)
--- NOTE | 2021-04-25 05:56 | NUR ---
SHIFT SUMMARY PT REMAINS ALERT AND ORIENTED, ABLE TO MOVE SELF TO BEDSIDE COMMODE. OFF OF INSULIN GTT, NOW ON ACHS MEDIUM SS. PT BECAME HYPERTENSIVE DURING THE NIGHT, MEDICATED c PRN HYDRALAZINE. PT ALSO C/O NAUSEA, TREATING PER JUL. AWAITING AM LABS, WILL MONITOR CLOSELY.
--- NOTE | 2021-04-25 07:15 | NUR ---
Assumed care of pt at 0700. Bedside report received from Jhony KINGSLEY. Pt on ventilator ACVC //35%. No sedation. Opens eyes to verbal stimulus, sometimes eyes open spontaneously. Pt not in restraints. Will continue to closely reassess.
--- NOTE | 2021-04-25 07:51 | NUR ---
Assumed care of pt at 0700. Report received from Lamin KINGSLEY. Pt A&O x 4. Answers questions. Follows commands. Verbalizes needs. Pleasant and cooperative with care. Dr Gu in to see pt early this AM. Plan of care discussed.
--- NOTE | 2021-04-25 07:59 | NUR ---
Dr Kerri Douglas in to see patient. States patient may change to lower level of care if not sent home today- pending order from Dr Gu.
--- NOTE | 2021-04-25 15:00 | NUR ---
Call placed to Dr House to discuss if pt requires ICU status. Provider stated pt may be medical floor status without telemetry.
--- NOTE | 2021-04-25 17:15 | NUR ---
Call placed to Dr House to notify of high blood sugar. Per provider, give patient Humalog per ordered sliding scale, pt may eat dinner, and then recheck blood sugar in 3 hours.
--- NOTE | 2021-04-25 18:09 | NUR ---
SUMMARY Pt medical floor status without telemetry. Neuro: A&O x 4. Answers questions. Follows commands. Verbalizes needs. Pleasant and cooperative with care. At baseline neuro and mobility. Musculoskeletal: Gait imparied due to hx L BKA. Pt steady with transfers and only requires supervision to transfer from bed to commode. Pt does not attempt to mobilize without staff in room. Cardiac: No longer on monitoring. ST per monitor previously, rate 100-110. Previously hypertensive but responded well to lisinopril. Respiratory: Pt is at baseline. GI: Hypoactive BT. Abd is soft and not tender on palpation. Intermittent nausea. Pt received one dose each of reglan and compazine this shift. No BM this shift. ADA diet, pt eats approx 20% of meal trays. : Voids into BSC. Clear, yellow urine Skin: Unchanged from initial assessment Psych: Pt often lethargic but pleasant and cooperative with care.
--- NOTE | 2021-04-26 05:13 | NUR ---
SUMMARY: NEURO- PT A/O, LUNALORETTA Chirinos. PERRL. CV WNL RESP- CLEAR T/O, ROOM AIR GI- ONE EPISODE OF NAUSEA. PRN MED PASSED. ACTIVE BS, NO BM - ADEQUATE UOP, CLEAR, YELLOW SKIN UNCHANGE FROM PREVIOUS SHIFTS ASSESSMENT. WILL CONTINUE TO MONITOR.
[2021-04-26 07:01] LABS: BASOPHILS ABSOLUTE AUTO 0.03 K/mm3 (0.00-0.23); BASOPHILS PERCENT AUTO 0 % (0-2); EOSINOPHILS ABSOLUTE AUTO 0.03 K/mm3 (0.00-0.68); EOSINOPHILS PERCENT AUTO 0 % (0-6); Hemoglobin 8.8 g/dL (11.5-16.0); IMMATURE GRAN ABSOLUTE AUTO 0.02 K/mm3 (0.00-0.10); IMMATURE GRAN PERCENT AUTO 0 % (0-1); LYMPHOCYTES PERCENT AUTO 28 % (21-46); MONOCYTES ABSOLUTE AUTO 0.96 K/mm3 (0.16-1.47); MONOCYTES PERCENT AUTO 11 % (4-13); Mean Corpuscular HGB 29.7 pg (26.0-34.0); Mean Corpuscular HGB Conc 33.8 g/dL (31.5-36.5); Mean Corpuscular Volume 88 fL (80-100); Mean Platelet Volume 9.2 fL (9.1-12.4); NEUTROPHILS ABSOLUTE AUTO 5.51 K/mm3 (1.96-9.15); NEUTROPHILS PERCENT AUTO 60 % (41-73); Platelet Count 538 K/mm3 (150-400); RDW Coefficient Variation 13.4 % (11.7-14.2); RDW Standard Deviation 43.3 fL (35.1-46.3); Red Blood Cell Count 2.96 M/mm3 (3.80-5.20); White Blood Cell Count 9.15 K/mm3 (4.00-11.30)
--- NOTE | 2021-04-26 08:00 | NUR ---
PATIENT A&OX4, CALM, COOPERATIVE. COMPLAINS OF SOME MILD NAUSEA. CBG 64 THIS MORNING BEFORE BREAKFAST. PATIENT WAS GIVEN APPLE JUICE AND BREAKFAST, UPON RECHECK CBG WAS IN 100S. VOIDED 600CC CLEAR YELLOW URINE IN COMMODE. ROOM AIR.
--- NOTE | 2021-04-26 10:00 | NUR ---
PATIENT TRANSFERRED TO MEDICAL FLOOR. REPORT GIVEN TO BACKARY. ALL BELONGINGS TRANSFERRED WITH PATIENT.
--- NOTE | 2021-04-26 15:25 | NUR ---
Alert and oriented x3 ,able to make needs known. Denies any pain. NO nausea and vomiting reported during shift. Vital signs are stable. Insulin was given for blood glucose coverage. One person assist with ADLs. Patient discharged home in a stable condition and discharge instruction was given and acknowledged.
== END 2021-04-26 15:19 | disposition home or self-care (01) | DRG 638 ==
LOC: ER 07:23 → ERHOLD 09:44 → ICUE 16:12 → MEDS 04-26 09:45
PROVIDERS: Emergency Medicine; Nurse Practitioner Acute Care; Student in an Organized Health Care Education/Training Program; ADMIT Hospitalist
DX: E10.10 Type 1 diabetes mellitus with ketoacidosis without coma (principal); R65.10 Systemic inflammatory response syndrome (SIRS) of non-infectious origin without acute organ dysfunction; Z20.822 Contact with and (suspected) exposure to COVID-19; E10.42 Type 1 diabetes mellitus with diabetic polyneuropathy; D75.839 Thrombocytosis, unspecified; E87.5 Hyperkalemia; E83.42 Hypomagnesemia; E83.39 Other disorders of phosphorus metabolism; R10.84 Generalized abdominal pain; J45.909 Unspecified asthma, uncomplicated; F41.8 Other specified anxiety disorders; F10.10 Alcohol abuse, uncomplicated; F15.10 Other stimulant abuse, uncomplicated; K21.9 Gastro-esophageal reflux disease without esophagitis; I10 Essential (primary) hypertension; Z87.891 Personal history of nicotine dependence; Z91.19 Patient's noncompliance with other medical treatment and regimen; Z28.89 Immunization not carried out for other reason; Z90.710 Acquired absence of both cervix and uterus; Z90.49 Acquired absence of other specified parts of digestive tract; Z86.14 Personal history of Methicillin resistant Staphylococcus aureus infection
CPT/HCPCS: 0202U; 0241U; 36415; 71045; 80048; 80053; 81001; 82010; 82803; 82947; 83690; 83735; 84100; 84484; 85025; 85027; 93005; 93010; 96361; 96374; 96375; 96376; 99285-25; A9270; C1751; C9113; J0360; J0780; J1170; J1650; J1815; J1885; J2405; J2550; J2765; J3475; J3480; J7030; J7040; J7042; J7120

== ENCOUNTER 2021-04-29 10:07 | Inpatient (IN) | payer OTHER ==
[~2021-04-29] VITALS: Ht 172.7 cm; Wt 63.5 kg
[2021-04-29 11:05] LABS: BASOPHILS ABSOLUTE AUTO 0.08 K/mm3 (0.00-0.23); BASOPHILS PERCENT AUTO 1 % (0-2); EOSINOPHILS ABSOLUTE AUTO 0.05 K/mm3 (0.00-0.68); EOSINOPHILS PERCENT AUTO 0 % (0-6); Hematocrit 31.6 % (33.0-51.0); Hemoglobin 10.3 g/dL (11.5-16.0); IMMATURE GRAN ABSOLUTE AUTO 0.08 K/mm3 (0.00-0.10); IMMATURE GRAN PERCENT AUTO 1 % (0-1); LYMPHOCYTES PERCENT AUTO 14 % (21-46); MONOCYTES ABSOLUTE AUTO 1.05 K/mm3 (0.16-1.47); MONOCYTES PERCENT AUTO 6 % (4-13); Mean Corpuscular HGB 29.4 pg (26.0-34.0); Mean Corpuscular HGB Conc 32.6 g/dL (31.5-36.5); Mean Corpuscular Volume 90 fL (80-100); NEUTROPHILS PERCENT AUTO 79 % (41-73); RDW Coefficient Variation 13.5 % (11.7-14.2); RDW Standard Deviation 44.8 fL (35.1-46.3); White Blood Cell Count 16.66 K/mm3 (4.00-11.30)
[2021-04-29 11:19] LABS: Base Excess Venous -7.1 mmol/L; PCO2 Venous 39.4 mmHg (38-42); PO2 Venous 101 mmHg (38-42)
[2021-04-29 11:20] LABS: Anion Gap 14 mmol/L (6-16); Blood Urea Nitrogen 14 mg/dL (8-24); Bun/Creatinine Ratio 25.4 (12.0-20.0); CO2, Blood 20 mmol/L (21-32); Calcium, Blood 9.1 mg/dL (8.5-10.1); Chloride, Blood 95 mmol/L (98-108); Creatinine, Blood 0.55 mg/dL (0.40-1.00); Glomerular Filtration Rate >60 (60-); Glucose, Blood 592 mg/dL (70-99); Potassium, Blood 3.9 mmol/L (3.5-5.5); Sodium, Blood 129 mmol/L (136-145)
[2021-04-29 11:21] LABS: Mean Platelet Volume 11.3 fL (9.1-12.4); Platelet Count 436 K/mm3 (150-400)
[2021-04-29 12:08] LABS: Beta-hydroxybutyrate 58.4 mg/dL (0.2-2.8)
[2021-04-29 18:15] LABS: Anion Gap 13 mmol/L (6-16); Blood Urea Nitrogen 16 mg/dL (8-24); Bun/Creatinine Ratio 22.7 (12.0-20.0); CO2, Blood 20 mmol/L (21-32); Calcium, Blood 8.7 mg/dL (8.5-10.1); Chloride, Blood 99 mmol/L (98-108); Glomerular Filtration Rate >60 (60-); Glucose, Blood 412 mg/dL (70-99); Potassium, Blood 3.2 mmol/L (3.5-5.5); Sodium, Blood 132 mmol/L (136-145)
--- NOTE | 2021-04-29 19:52 | NUR ---
transfer report from [employer] SAFETY PROGRAM COORDINATORTEETEE Zuleta on PT with cellulitis sepsis lt BKA with wound. 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 She recieved insulin in ER & last BG in 300's. Will be in contact isolation. Await admission.
[2021-04-29 23:40] LABS: U Amphetamine Screen DETECTED; U Barbituate Screen Not Detected; U Benzodiazapine Screen Not Detected; U Buprenorphine Screen Not Detected; U Cannabinoids Screen DETECTED; U Cocaine Screen Not Detected; U Methadone Screen Not Detected; U Methamphetamine Screen Not Detected; U Opiates Screen Not Detected; U Oxycodone Screen DETECTED; U Phencyclidine Screen Not Detected; U Propoxyphene Screen Not Detected
--- NOTE | 2021-04-30 01:17 | NUR ---
DR DONAHUE called about PT refused 35 u semglee insulin with BG 258. PT ate & said she would take semglee insulin. DR said to check BG & give 10 units & photo doc wound lt le & finger cellulitis. wound care lt le has packing.
[2021-04-30] MEDS ORDERED: SUMA25 PO (05:29)
[2021-04-30 05:52] LABS: BASOPHILS ABSOLUTE AUTO 0.03 K/mm3 (0.00-0.23); BASOPHILS PERCENT AUTO 0 % (0-2); EOSINOPHILS ABSOLUTE AUTO 0.05 K/mm3 (0.00-0.68); EOSINOPHILS PERCENT AUTO 1 % (0-6); Hematocrit 24.7 % (33.0-51.0); Hemoglobin 8.2 g/dL (11.5-16.0); IMMATURE GRAN ABSOLUTE AUTO 0.04 K/mm3 (0.00-0.10); IMMATURE GRAN PERCENT AUTO 0 % (0-1); LYMPHOCYTES ABSOLUTE AUTO 1.17 K/mm3 (0.84-5.20); LYMPHOCYTES PERCENT AUTO 13 % (21-46); MONOCYTES ABSOLUTE AUTO 0.63 K/mm3 (0.16-1.47); MONOCYTES PERCENT AUTO 7 % (4-13); Mean Corpuscular HGB 29.6 pg (26.0-34.0); Mean Corpuscular HGB Conc 33.2 g/dL (31.5-36.5); Mean Corpuscular Volume 89 fL (80-100); Mean Platelet Volume 11.3 fL (9.1-12.4); NEUTROPHILS ABSOLUTE AUTO 7.32 K/mm3 (1.96-9.15); NEUTROPHILS PERCENT AUTO 79 % (41-73); Platelet Count 405 K/mm3 (150-400); RDW Coefficient Variation 13.4 % (11.7-14.2); RDW Standard Deviation 44.3 fL (35.1-46.3); Red Blood Cell Count 2.77 M/mm3 (3.80-5.20); White Blood Cell Count 9.24 K/mm3 (4.00-11.30)
[2021-04-30 06:01] LABS: Anion Gap 10 mmol/L (6-16); Blood Urea Nitrogen 15 mg/dL (8-24); Bun/Creatinine Ratio 28.5 (12.0-20.0); CO2, Blood 24 mmol/L (21-32); Calcium, Blood 8.5 mg/dL (8.5-10.1); Chloride, Blood 103 mmol/L (98-108); Creatinine, Blood 0.53 mg/dL (0.40-1.00); Glomerular Filtration Rate >60 (60-); Glucose, Blood 291 mg/dL (70-99); Magnesium, Blood 1.7 mg/dL (1.6-2.4); Potassium, Blood 3.5 mmol/L (3.5-5.5); Sodium, Blood 137 mmol/L (136-145)
--- NOTE | 2021-04-30 06:34 | NUR ---
PT with hx of MRSA IDDM & multiple I & D to Lt LE admitted with cellulitis sepsis & had is weeping & emotional. Restarted buspar 10 mg , gave percocet 5/325 mg tab & phenergan 25 mg po. Await response. Wound care photodoc & completed. PT has LT LE healing BKA & the scar is clean dry intact. PT has lt knee cellulitis with sm amt of iodaform gauze photodoc completed & redressed. PT has blood glucose in 200s, She had only recieved 10 u semglee due to refusal & 1st dose given around 1600. PT with hx of meth abuse positive for amphetamines on tox screen. PT continues in contact isolation for wound lt knee, fall precautions. Continues on unasyn & vancomycin.
--- NOTE | 2021-04-30 18:34 | NUR ---
SHIFT SUMMARY PT HAS BEEN EMOTIONAL AND ANXIOUS MOST OF THE DAY, HER EYES HAVE SWOLLEN. IS AWARE AND THINKS IT IS RELATED TO CRYING. LEFT SIDE MORE SWOLLEN THAN RIGHT. WE HAVE DISCUSSED MANY OF HER SOCIAL ISSUES AND ABOUT WHAT SHE HOPES TO DO WHEN SHE DISCHARGES. WANTS TO KEEP HER FOR OBSERVATIONS OVERNIGHT. SHE IS HOPEFUL TO DISCHARGE IN THE NEXT FEW DAYS WITH HER TAKING ADVANTAGE OF COMMUNITY RESOURCES. WILL CONTINUE TO MONITOR.
--- NOTE | 2021-04-30 23:59 | NUR ---
DR CASTRO updated PT drinking large amts of fluid unable to continue LR at 150 ml hr due to incompatability with abx. Has NS TKO for ABX
--- NOTE | 2021-05-01 06:33 | NUR ---
pt CONTINUES IN CONTACT ISOLATION FOR mrsa & CONTINUES ON iv ABX TO TX CELLULITIS. lt KNEE WOUND CARE DONE WITH KARACLENSE & SM AMT IDODAFORM PACKING. lt 3RD FINGER WITH PUS FILLED AREA LATERAL AROUND NAIL lARGE AMT OF PURULENT FLIUD DRAINED WITH GENTLE PRESSURE. pt LT KNEE WOUND IMPROVING WITH LESS EDEMA WARMTH PAIN. mED X 2 WITH PERCOCET 5/325 MG TAB. pt SET UP FOR BED BATH & SUPPORT PROVIDED. ON BUSPAR 10 MG PO TID FOR ANXIETY WITH HELPFUL EFFECT & 1 PRN 1 MG ATIVAN GAVE GOOD RELIEF OF ANXIETY.
[2021-05-01 07:10] LABS: BASOPHILS ABSOLUTE AUTO 0.04 K/mm3 (0.00-0.23); BASOPHILS PERCENT AUTO 1 % (0-2); EOSINOPHILS ABSOLUTE AUTO 0.06 K/mm3 (0.00-0.68); EOSINOPHILS PERCENT AUTO 1 % (0-6); Hematocrit 24.4 % (33.0-51.0); IMMATURE GRAN ABSOLUTE AUTO 0.01 K/mm3 (0.00-0.10); IMMATURE GRAN PERCENT AUTO 0 % (0-1); LYMPHOCYTES ABSOLUTE AUTO 2.31 K/mm3 (0.84-5.20); LYMPHOCYTES PERCENT AUTO 44 % (21-46); MONOCYTES ABSOLUTE AUTO 0.71 K/mm3 (0.16-1.47); MONOCYTES PERCENT AUTO 14 % (4-13); Mean Corpuscular HGB 29.4 pg (26.0-34.0); Mean Corpuscular HGB Conc 32.8 g/dL (31.5-36.5); Mean Corpuscular Volume 90 fL (80-100); Mean Platelet Volume 10.8 fL (9.1-12.4); NEUTROPHILS ABSOLUTE AUTO 2.13 K/mm3 (1.96-9.15); NEUTROPHILS PERCENT AUTO 41 % (41-73); Platelet Count 304 K/mm3 (150-400); RDW Coefficient Variation 13.7 % (11.7-14.2); RDW Standard Deviation 44.5 fL (35.1-46.3); Red Blood Cell Count 2.72 M/mm3 (3.80-5.20); White Blood Cell Count 5.26 K/mm3 (4.00-11.30)
[2021-05-01 07:23] LABS: Anion Gap 6 mmol/L (6-16); Blood Urea Nitrogen 13 mg/dL (8-24); Bun/Creatinine Ratio 20.5 (12.0-20.0); CO2, Blood 27 mmol/L (21-32); Calcium, Blood 8.3 mg/dL (8.5-10.1); Chloride, Blood 105 mmol/L (98-108); Creatinine, Blood 0.63 mg/dL (0.40-1.00); Glomerular Filtration Rate >60 (60-); Glucose, Blood 67 mg/dL (70-99); Sodium, Blood 138 mmol/L (136-145); Vancomycin, Trough 17.8 ug/mL (5.0-10.0)
[2021-05-01] MEDS ORDERED: VISBIOME 112.51 EACH PO (13:37)
[2021-05-01] MEDS ORDERED: DOXY100 PO (13:37)
--- NOTE | 2021-05-01 17:34 | NUR ---
DISCHARGE ENTRY: PATIENT REPORTED PAIN IN HER LOWER LEFT LIMB THROUGHOUT THE SHIFT. PAIN CONTROLLED FOR THE MOST PART WITH PO PAIN MEDICATIONS. PATIENT ALSO UTILIZED ELEVATION AND DISTRACTION. PATIENT ANXIOUS AT TIMES. MEDICATED PER PRNS AND USED THERAPEUTIC TECHNIQUES TO HELP PATIENT CONSIDER HER STRENGTHS AND MOTIVATIONS FOR CHANGE. PATIENT APPRECIATIVE OF CARE. PATIENT REPORTS UNDERSTANDING OF FOLLOW-UP COMMUNICATION WITH MAGDALENA JACKSON AND NEW PCP. PATIENT REPORTS THAT SHE IS ABLE TO CHANGE HER DRESSING AT HOME INDEPENDENTLY. PATIENT REPORTS RELUCTANCE TO GO HOME. PROVIDED SUPPORT AND ENCOURAGEMENT. PATIENT EASILY ABLE TO [place] [facility] [place]. PATIENT HAS AN EXCELLENT APPETITE. WORKED WITH LOGISTICS COORDINATOR TO ENSURE THAT PATIENT IS ABLE TO GET HER ANTIBIOTICS TONIGHT. ARRANGED WITH [facility] TO HELP THE PATIENT GET HER PRESCRIPTION TONIGHT. PATIENT VISITED BY SUPPORT SERVICES ([facility]) TO PROVIDE THE PATIENT WITH A NEW PHONE THAT HAS DATA TO HELP WITH CARE COORDINATION. DISCHARGE INSTRUCTIONS AND EDUCATION PROVIDED TO THE PATIENT. ALL QUESTIONS AND CONCERNS ADDRESSED. NEW PRESCRIPTION FAXED TO [facility] PER PATIENT REQUEST. [employer] [facility]ED FOR [facility] HOME. PATIENT DISCHARGED WITH [employer]. PATIENT STABLE AT TIME OF DISCHARGE.
[2021-05-06 15:08] LABS: CARBOXY-THC >806 (.)
== END 2021-05-01 17:07 | disposition home health service (06) | DRG 871 ==
LOC: ER 10:07 → MEDS 14:29 → ERHOLD 14:29 → MEDS 20:05
PROVIDERS: Nurse Practitioner Acute Care; Pharmacist; Student in an Organized Health Care Education/Training Program; ADMIT Family Medicine
PROC: 0J9M0ZZ Drainage of Left Upper Leg Subcutaneous Tissue and Fascia, Open Approach (ICD-10-PCS; principal; 2021-04-29)
DX: A41.9 Sepsis, unspecified organism (principal); E10.10 Type 1 diabetes mellitus with ketoacidosis without coma; L02.416 Cutaneous abscess of left lower limb; L03.116 Cellulitis of left lower limb; K21.9 Gastro-esophageal reflux disease without esophagitis; I10 Essential (primary) hypertension; F15.10 Other stimulant abuse, uncomplicated; F11.10 Opioid abuse, uncomplicated; F41.8 Other specified anxiety disorders; J44.9 Chronic obstructive pulmonary disease, unspecified; Z90.49 Acquired absence of other specified parts of digestive tract; Z88.1 Allergy status to other antibiotic agents; Z88.5 Allergy status to narcotic agent; Z90.710 Acquired absence of both cervix and uterus; Z98.890 Other specified postprocedural states; Z89.512 Acquired absence of left leg below knee; Z91.14 Patient's other noncompliance with medication regimen
CPT/HCPCS: 10060; 36415; 73562-LT; 73701; 80048; 80202; 82010; 82803; 82947; 83605; 83735; 85025; 85651; 86140; 87040; 87070; 87075; 87077; 87147; 87186; 87205; 96365; 96375; 97162; 97530; 99285-25; A9270; G0480; J0295; J1650; J1815; J1885; J2405; J3010; J3370; J7030; J7050; J7120; Q9967

== ENCOUNTER 2021-05-15 12:07 | Emergency (ER) | payer OTHER ==
[~2021-05-15] VITALS: Ht 172.7 cm; Wt 59.0 kg
[2021-05-15 14:03] LABS: BASOPHILS ABSOLUTE AUTO 0.05 K/mm3 (0.00-0.23); BASOPHILS PERCENT AUTO 1 % (0-2); EOSINOPHILS ABSOLUTE AUTO 0.02 K/mm3 (0.00-0.68); EOSINOPHILS PERCENT AUTO 0 % (0-6); Hematocrit 32.3 % (33.0-51.0); IMMATURE GRAN ABSOLUTE AUTO 0.01 K/mm3 (0.00-0.10); IMMATURE GRAN PERCENT AUTO 0 % (0-1); LYMPHOCYTES ABSOLUTE AUTO 1.62 K/mm3 (0.84-5.20); LYMPHOCYTES PERCENT AUTO 29 % (21-46); MONOCYTES ABSOLUTE AUTO 0.32 K/mm3 (0.16-1.47); MONOCYTES PERCENT AUTO 6 % (4-13); Mean Corpuscular HGB 29.7 pg (26.0-34.0); Mean Corpuscular HGB Conc 34.1 g/dL (31.5-36.5); Mean Corpuscular Volume 87 fL (80-100); Mean Platelet Volume 10.7 fL (9.1-12.4); NEUTROPHILS ABSOLUTE AUTO 3.52 K/mm3 (1.96-9.15); NEUTROPHILS PERCENT AUTO 64 % (41-73); Platelet Count 350 K/mm3 (150-400); RDW Coefficient Variation 13.8 % (11.7-14.2); RDW Standard Deviation 43.7 fL (35.1-46.3); White Blood Cell Count 5.54 K/mm3 (4.00-11.30)
[2021-05-15 14:17] LABS: Source, Urine Voided
[2021-05-15 14:31] LABS: Appearance, Urine Clear (Clear); Bilirubin, Urine Neg (Neg); Blood, Urine 2+ (Neg); Color, Urine Yellow (P-Yellow); Glucose Qualitative, Urine 4+ (Neg); Ketones, Urine 3+ (Neg); Leukocyte Esterase, Urine Neg (Neg); Nitrite, Urine Neg (Neg); Protein, Urine 2+ (Neg); Urobilinogen, Urine NORM (Normal)
[2021-05-15 14:47] LABS: Alanine Aminotransfer (ALT/SGP 23 U/L (12-78); Albumin, Blood 2.9 g/dL (3.4-5.0); Albumin/Globulin Ratio 0.7 (0.8-1.8); Alk Phos 131 U/L (50-136); Anion Gap 13 mmol/L (6-16); Aspartate Aminotrans (AST/SGOT 19 U/L (12-37); Bilirubin, Total 0.5 mg/dL (0.1-1.0); Blood Urea Nitrogen 15 mg/dL (8-24); Bun/Creatinine Ratio 24.3 (12.0-20.0); CO2, Blood 25 mmol/L (21-32); Calcium, Blood 9.3 mg/dL (8.5-10.1); Chloride, Blood 94 mmol/L (98-108); Creatinine, Blood 0.62 mg/dL (0.40-1.00); Globulin, Blood 4.3 g/dL (2.2-4.0); Glomerular Filtration Rate >60 (60-); Glucose, Blood 635 mg/dL (70-99); Potassium, Blood 4.3 mmol/L (3.5-5.5); Sodium, Blood 132 mmol/L (136-145); Total Protein, Blood 7.2 g/dL (6.4-8.2)
[2021-05-15 14:53] LABS: Bacteria Few /hpf; Red Blood Cells, Urine 0-2 /hpf (0-2); Squamous Epithelial Cells Few /hpf (Few); Yeast/Fungi Urine Few /hpf
[2021-05-15 16:34] LABS: Base Excess Venous -5.6 mmol/L; PCO2 Venous 39.6 mmHg (38-42); PO2 Venous 69.7 mmHg (38-42); pH Blood Venous 7.32 (7.34-7.37)
[2021-05-15] MEDS ORDERED: ONDA4ODT MM (16:54)
[2021-05-15] MEDS ORDERED: PROM25 PO (16:54)
== END 2021-05-15 19:35 | disposition home or self-care (01) ==
LOC: ER 12:07
PROVIDERS: Emergency Medicine
DX: E10.65 Type 1 diabetes mellitus with hyperglycemia (principal); R11.10 Vomiting, unspecified; K21.9 Gastro-esophageal reflux disease without esophagitis; I10 Essential (primary) hypertension; Z88.5 Allergy status to narcotic agent; Z88.1 Allergy status to other antibiotic agents; Z79.899 Other long term (current) drug therapy
CPT/HCPCS: 36415; 80053; 81001; 81025; 82803; 82947; 83690; 85025; 96372; 96374; 99284-25; J1790; J1815; J2550; J7120

== ENCOUNTER 2021-05-16 12:03 | Inpatient (IN) | payer OTHER ==
[~2021-05-16] VITALS: Ht 165.1 cm; Wt 59.4 kg
[2021-05-16 13:11] LABS: PCO2 Venous 18.2 mmHg (38-42); pH Blood Venous <6.80 (7.34-7.37)
[2021-05-16 13:12] LABS: Base Excess Venous -31.8 mmol/L; Bicarbonate Venous 4.9 mmol/L (24.0-30.0)
[2021-05-16 13:59] LABS: Alanine Aminotransfer (ALT/SGP 26 U/L (12-78); Albumin, Blood 3.2 g/dL (3.4-5.0); Albumin/Globulin Ratio 0.7 (0.8-1.8); Alk Phos 159 U/L (50-136); Anion Gap 30 mmol/L (6-16); Aspartate Aminotrans (AST/SGOT 24 U/L (12-37); Bilirubin, Total 0.4 mg/dL (0.1-1.0); Blood Urea Nitrogen 28 mg/dL (8-24); Bun/Creatinine Ratio 34.7 (12.0-20.0); CO2, Blood 2 mmol/L (21-32); Calcium, Blood 8.5 mg/dL (8.5-10.1); Chloride, Blood 93 mmol/L (98-108); Creatinine, Blood 0.81 mg/dL (0.40-1.00); Globulin, Blood 4.6 g/dL (2.2-4.0); Glomerular Filtration Rate >60 (60-); Glucose, Blood 1004 mg/dL (70-99); Sodium, Blood 125 mmol/L (136-145); Total Protein, Blood 7.8 g/dL (6.4-8.2)
[2021-05-16 14:17] LABS: Potassium, Blood 6.3 mmol/L (3.5-5.5)
[2021-05-16 14:23] LABS: BASOPHILS ABSOLUTE AUTO 0.09 K/mm3 (0.00-0.23); BASOPHILS PERCENT AUTO 0 % (0-2); EOSINOPHILS ABSOLUTE AUTO 0.01 K/mm3 (0.00-0.68); EOSINOPHILS PERCENT AUTO 0 % (0-6); Hematocrit 34.2 % (33.0-51.0); IMMATURE GRAN ABSOLUTE AUTO 0.42 K/mm3 (0.00-0.10); IMMATURE GRAN PERCENT AUTO 2 % (0-1); LYMPHOCYTES ABSOLUTE AUTO 2.11 K/mm3 (0.84-5.20); LYMPHOCYTES PERCENT AUTO 9 % (21-46); MONOCYTES ABSOLUTE AUTO 1.12 K/mm3 (0.16-1.47); MONOCYTES PERCENT AUTO 5 % (4-13); Mean Corpuscular HGB 28.9 pg (26.0-34.0); Mean Corpuscular HGB Conc 29.2 g/dL (31.5-36.5); Mean Platelet Volume 11.2 fL (9.1-12.4); NEUTROPHILS PERCENT AUTO 84 % (41-73); Platelet Count 417 K/mm3 (150-400); Red Blood Cell Count 3.46 M/mm3 (3.80-5.20); White Blood Cell Count 22.85 K/mm3 (4.00-11.30)
[2021-05-16 14:25] LABS: Mean Corpuscular Volume 99 fL (80-100)
[2021-05-16 15:41] LABS: Source, Urine Clean Catch
[2021-05-16 15:43] LABS: Appearance, Urine Clear (Clear); Bilirubin, Urine Neg (Neg); Blood, Urine 2+ (Neg); Glucose Qualitative, Urine 4+ (Neg); Ketones, Urine 4+ (Neg); Leukocyte Esterase, Urine Neg (Neg); Nitrite, Urine Neg (Neg); Protein, Urine 3+ (Neg); Specific Gravity, Urine 1.015 (1.003-1.022); Urobilinogen, Urine NORM (Normal)
[2021-05-16 16:20] LABS: Anion Gap 29 mmol/L (6-16); Blood Urea Nitrogen 31 mg/dL (8-24); Bun/Creatinine Ratio 37.4 (12.0-20.0); CO2, Blood 4 mmol/L (21-32); Calcium, Blood 7.5 mg/dL (8.5-10.1); Chloride, Blood 95 mmol/L (98-108); Creatinine, Blood 0.83 mg/dL (0.40-1.00); Glomerular Filtration Rate >60 (60-); Glucose, Blood 906 mg/dL (70-99); Potassium, Blood 4.7 mmol/L (3.5-5.5); Sodium, Blood 128 mmol/L (136-145)
[2021-05-16 16:45] LABS: Color, Urine Pale Yellow (P-Yellow)
[2021-05-16 16:47] LABS: Bacteria Few /hpf; Red Blood Cells, Urine 0-2 /hpf (0-2); Squamous Epithelial Cells Few /hpf (Few); White Blood Cells, Urine 0-2 /hpf (0-5)
[2021-05-16 19:27] LABS: Anion Gap 23 mmol/L (6-16); Blood Urea Nitrogen 28 mg/dL (8-24); Bun/Creatinine Ratio 40.8 (12.0-20.0); CO2, Blood 7 mmol/L (21-32); Calcium, Blood 7.3 mg/dL (8.5-10.1); Chloride, Blood 106 mmol/L (98-108); Creatinine, Blood 0.69 mg/dL (0.40-1.00); Glomerular Filtration Rate >60 (60-); Glucose, Blood 432 mg/dL (70-99); Sodium, Blood 136 mmol/L (136-145)
[2021-05-16 19:57] LABS: U Amphetamine Screen DETECTED; U Barbituate Screen Not Detected; U Benzodiazapine Screen Not Detected; U Buprenorphine Screen Not Detected; U Cannabinoids Screen Not Detected; U Cocaine Screen Not Detected; U Methadone Screen Not Detected; U Methamphetamine Screen DETECTED; U Opiates Screen Not Detected; U Oxycodone Screen Not Detected; U Phencyclidine Screen Not Detected; U Propoxyphene Screen Not Detected
--- NOTE | 2021-05-16 22:00 | NUR ---
PT ADMITTED TO ROOM ICU 02 FROM ED. ARRIVES AT 2034. PT SLIDE TRANSFERRED TO BED FROM [facility]. PT BECOMES ANXIOUS EASILY. FAMILIAR TO THE RN FROM PREVIOUS IN PATIENT STAYS IN THE ICU. PT HAS 22 GAUGE IF NEAR RIGHT WRIST. PLACED 18 GAUGE/10CM POWERGLIDE TO RIGHT UPPER ARM. USE OF LIDOCAINE ENABLED PT TO TOLERATE THIS VERY WELL. CALL MADE TO DR PENALOZA WITH UPDATE ON LABS AND CURRENT BLOOD GLUCOSE LEVEL. ORDERS RECEIVED. PT PROVIDED SEVERAL ICE CHIPS TO MOISTEN HER MOUTH. THIS ELICITED SOME NAUSEA. WILL HOLD OFF ON ICE CHIPS AT THIS TIME. PROVIDE MOIST TOOTHETTES WHICH PT VOICES SHE WOULD RATHER HAVE THE ICE CHIPS. EDUCATED PT ON RATIONALE FOR NO ICE CHIPS RELATED TO DKA AND HER NAUSEA. WILL REVEIW CHART AND PLAN OF CARE FOR THIS PT.
[2021-05-17 00:07] LABS: Anion Gap 23 mmol/L (6-16); Blood Urea Nitrogen 23 mg/dL (8-24); Bun/Creatinine Ratio 35.3 (12.0-20.0); CO2, Blood 12 mmol/L (21-32); Calcium, Blood 7.5 mg/dL (8.5-10.1); Chloride, Blood 108 mmol/L (98-108); Creatinine, Blood 0.65 mg/dL (0.40-1.00); Glomerular Filtration Rate >60 (60-); Glucose, Blood 345 mg/dL (70-99); Potassium, Blood 3.9 mmol/L (3.5-5.5); Sodium, Blood 143 mmol/L (136-145)
[2021-05-17 03:22] LABS: BASOPHILS ABSOLUTE AUTO 0.04 K/mm3 (0.00-0.23); BASOPHILS PERCENT AUTO 0 % (0-2); EOSINOPHILS PERCENT AUTO 0 % (0-6); Hematocrit 25.9 % (33.0-51.0); IMMATURE GRAN ABSOLUTE AUTO 0.12 K/mm3 (0.00-0.10); IMMATURE GRAN PERCENT AUTO 1 % (0-1); LYMPHOCYTES ABSOLUTE AUTO 2.69 K/mm3 (0.84-5.20); LYMPHOCYTES PERCENT AUTO 13 % (21-46); MONOCYTES ABSOLUTE AUTO 1.32 K/mm3 (0.16-1.47); MONOCYTES PERCENT AUTO 6 % (4-13); Mean Corpuscular HGB 29.7 pg (26.0-34.0); Mean Corpuscular HGB Conc 34.7 g/dL (31.5-36.5); Mean Platelet Volume 10.4 fL (9.1-12.4); NEUTROPHILS ABSOLUTE AUTO 16.59 K/mm3 (1.96-9.15); NEUTROPHILS PERCENT AUTO 80 % (41-73); Platelet Count 351 K/mm3 (150-400); RDW Coefficient Variation 13.2 % (11.7-14.2); RDW Standard Deviation 41.6 fL (35.1-46.3); Red Blood Cell Count 3.03 M/mm3 (3.80-5.20); White Blood Cell Count 20.76 K/mm3 (4.00-11.30)
[2021-05-17 03:29] LABS: Mean Corpuscular Volume 86 fL (80-100)
--- NOTE | 2021-05-17 03:31 | NUR ---
PT HAS HAD INSULIN WEANED TO 3 UNITS/HOUR. WILL CONTINUE WITH Q 1 HOUR BLOOD GLUCOSE. PT HAS HAD RETURN OF NAUSEA. SHE STATES DOSE FROM ER DID NOT HELP MUCH. SHE HAD BEEN MEDICATED WITH 12.5 MG PHENERGAN. DID ADMINISTER 25 MG WHICH IS AFFECTIVE. WILL CONTINUE TO MONITOR.
[2021-05-17 04:06] LABS: Anion Gap 10 mmol/L (6-16); Blood Urea Nitrogen 18 mg/dL (8-24); Bun/Creatinine Ratio 29.1 (12.0-20.0); CO2, Blood 24 mmol/L (21-32); Calcium, Blood 7.9 mg/dL (8.5-10.1); Chloride, Blood 113 mmol/L (98-108); Creatinine, Blood 0.62 mg/dL (0.40-1.00); Glomerular Filtration Rate >60 (60-); Glucose, Blood 138 mg/dL (70-99); Potassium, Blood 3.2 mmol/L (3.5-5.5); Sodium, Blood 147 mmol/L (136-145)
--- NOTE | 2021-05-17 04:58 | NUR ---
CALL MADE TO DR DANIELSON CONCERNING AM LABS. ANION GAP 10 AND CO2 WNL. IV FLUID CHANGE ORDER. POTASSIUM LUIS E ORDERED. SECONDARY TO PT'S CONSISTANT NAUSEA ISSUE, WILL MAINTAIN INSULIN DRIP TO KEEP CBG NEAR 100-130. AM HOSPITALIST WILL DETERMINE APPROPRIATE LONG ACTING INSULIN TO BRING INSULIN DRIP OFF. PT HAS BEEN VERY NONCOMPLIANT WITH LANTUS AT HOME. HAS NOT TAKEN A DOSE SINCE THE FIRST May. WILL CONTINUE Q HOUR GLUCOSE CHECKS. PT AWAKENS EASILY TO ANY STIMULI. THEN IS ABLE TO GO BACK TO SLEEP. WILL CONTINUE TO MONITOR PT, AND WILL REPORT OFF TO ONCOMING RN.
[2021-05-17 08:18] LABS: Anion Gap 11 mmol/L (6-16); Blood Urea Nitrogen 15 mg/dL (8-24); Bun/Creatinine Ratio 27.3 (12.0-20.0); CO2, Blood 23 mmol/L (21-32); Calcium, Blood 7.6 mg/dL (8.5-10.1); Chloride, Blood 110 mmol/L (98-108); Creatinine, Blood 0.55 mg/dL (0.40-1.00); Glomerular Filtration Rate >60 (60-); Glucose, Blood 191 mg/dL (70-99); Potassium, Blood 3.3 mmol/L (3.5-5.5); Sodium, Blood 144 mmol/L (136-145)
[2021-05-17 09:28] LABS: U Amphetamine Screen Not Detected; U Barbituate Screen Not Detected; U Benzodiazapine Screen Not Detected; U Buprenorphine Screen Not Detected; U Cannabinoids Screen DETECTED; U Cocaine Screen Not Detected; U Methadone Screen Not Detected; U Methamphetamine Screen Not Detected; U Opiates Screen Not Detected; U Oxycodone Screen Not Detected; U Phencyclidine Screen Not Detected; U Propoxyphene Screen Not Detected
[2021-05-17 12:30] LABS: Anion Gap 7 mmol/L (6-16); Blood Urea Nitrogen 12 mg/dL (8-24); Bun/Creatinine Ratio 23.5 (12.0-20.0); CO2, Blood 26 mmol/L (21-32); Calcium, Blood 7.7 mg/dL (8.5-10.1); Chloride, Blood 110 mmol/L (98-108); Creatinine, Blood 0.51 mg/dL (0.40-1.00); Glomerular Filtration Rate >60 (60-); Glucose, Blood 138 mg/dL (70-99); Potassium, Blood 3.2 mmol/L (3.5-5.5); Sodium, Blood 143 mmol/L (136-145)
[2021-05-17 17:21] LABS: Anion Gap 5 mmol/L (6-16); Blood Urea Nitrogen 11 mg/dL (8-24); Bun/Creatinine Ratio 22.5 (12.0-20.0); CO2, Blood 27 mmol/L (21-32); Calcium, Blood 7.5 mg/dL (8.5-10.1); Chloride, Blood 109 mmol/L (98-108); Creatinine, Blood 0.49 mg/dL (0.40-1.00); Glomerular Filtration Rate >60 (60-); Glucose, Blood 100 mg/dL (70-99); Potassium, Blood 3.3 mmol/L (3.5-5.5); Sodium, Blood 141 mmol/L (136-145)
--- NOTE | 2021-05-17 18:37 | NUR ---
SHIFT SUMMARY: PT IS ALERT AND ORIENTEDX3, ABLE TO COMMUNICATE NEEDS. PT HAS BEEN IN SR-ST HR BETWEEN 90-110, BP STABLE. PT HAS BEEN C/O NAUSEA ON/OFF THIS SHIFT, ADVANCED DIET TOLERATED. PT ABLE TO TOLERATE CLEAR LIQUIDS, CRACKERS, BREAD, POTATOES, PUDDING. AFTER PT FINISHED EATING SHE WAS FINE FOR A FEW HOURS, HOWEVER THEN BEGAN TO COMPLAIN OF ABD BURNING, STATING " I NEED SOMETHING FOR PAIN OR I WILL NOT EAT" PT DENIED NAUSEA AT THIS TIME. CALLED ORDERS GIVEN. THIS NURSE WITNESSED PT PLACE HER FINGERS IN HER MOUTH, PT BROUGHT UP 30CC OF YELLOW EMESIS. THEN REQUESTED A SODA, PT ADVISED THAT NO FLUIDS OR FOOD CAN BE GIVEN IF SHE IS NAUSEATED, SHE DENIED NAUSEA. PT UP TO BEDSIDE COMMODE THIS SHIFT, 900ML OUT PUT, SHOWER GIVEN. PT IS MEDICAL STATUS.
--- NOTE | 2021-05-17 20:30 | NUR ---
ASSUMED CARE RECEIVED REPORT FROM TEETEE KOEHLER AT 1900. PT A&O X3, AFEBRILE. PT ABLE TO AMBULATE TO BEDSIDE COMMODE WITH MINIMAL ASSISTANCE. ON ROOM AIR, LUNGS CLEAR THROUGHOUT. SINUS RHYTHM, RATE IN 90'S, BP STABLE. CURRENT C/O NAUSEA, TREATED WITH PRN ZOFRAN. PG TO BERNARDINO, DRAWS AND FLUSHES WELL, SALINE LOCKED. ORDERS REVIEWED AND WILL TREAT PRESCRIBED.
[2021-05-17 20:31] LABS: Anion Gap 10 mmol/L (6-16); Blood Urea Nitrogen 9 mg/dL (8-24); Bun/Creatinine Ratio 16.5 (12.0-20.0); CO2, Blood 24 mmol/L (21-32); Calcium, Blood 7.6 mg/dL (8.5-10.1); Chloride, Blood 107 mmol/L (98-108); Creatinine, Blood 0.54 mg/dL (0.40-1.00); Glomerular Filtration Rate >60 (60-); Glucose, Blood 259 mg/dL (70-99); Potassium, Blood 3.2 mmol/L (3.5-5.5); Sodium, Blood 141 mmol/L (136-145)
--- NOTE | 2021-05-17 21:00 | NUR ---
RECEIVED CALL FROM LAB, BLOOD CULTURES SHOW GROWTH OF GRAM + BACILLI. CALL TO DR. PENALOZA AND ORDERS PENDING. LOW POTASSIUM OF 3.2 ALSO ADDRESSED, ORDERS PENDING.
[2021-05-18 04:39] LABS: BASOPHILS ABSOLUTE AUTO 0.02 K/mm3 (0.00-0.23); BASOPHILS PERCENT AUTO 0 % (0-2); EOSINOPHILS ABSOLUTE AUTO 0.01 K/mm3 (0.00-0.68); EOSINOPHILS PERCENT AUTO 0 % (0-6); Hematocrit 27.9 % (33.0-51.0); Hemoglobin 9.5 g/dL (11.5-16.0); IMMATURE GRAN ABSOLUTE AUTO 0.05 K/mm3 (0.00-0.10); IMMATURE GRAN PERCENT AUTO 1 % (0-1); LYMPHOCYTES PERCENT AUTO 24 % (21-46); MONOCYTES ABSOLUTE AUTO 0.56 K/mm3 (0.16-1.47); MONOCYTES PERCENT AUTO 5 % (4-13); Mean Corpuscular HGB 29.7 pg (26.0-34.0); Mean Corpuscular HGB Conc 34.1 g/dL (31.5-36.5); Mean Corpuscular Volume 87 fL (80-100); Mean Platelet Volume 10.6 fL (9.1-12.4); NEUTROPHILS PERCENT AUTO 71 % (41-73); Platelet Count 315 K/mm3 (150-400); RDW Coefficient Variation 14.2 % (11.7-14.2); RDW Standard Deviation 45.1 fL (35.1-46.3); White Blood Cell Count 11.04 K/mm3 (4.00-11.30)
[2021-05-18 04:52] LABS: Anion Gap 6 mmol/L (6-16); Blood Urea Nitrogen 7 mg/dL (8-24); Bun/Creatinine Ratio 14.1 (12.0-20.0); CO2, Blood 28 mmol/L (21-32); Calcium, Blood 8.5 mg/dL (8.5-10.1); Chloride, Blood 107 mmol/L (98-108); Glomerular Filtration Rate >60 (60-); Glucose, Blood 114 mg/dL (70-99); Potassium, Blood 3.2 mmol/L (3.5-5.5); Sodium, Blood 141 mmol/L (136-145)
--- NOTE | 2021-05-18 05:42 | NUR ---
PT CONTINUED WITH NAUSEA T/O SHIFT, BUT NO VOMITING. MEDICATED WITH PRN ZOFRAN AND PHENERGAN PREVIOUSLY CHARTED. DESPITE NAUSEA, PT HAS TOLERATED LIQUIDS AND SEVERAL SMALL SNACKS T/O THE NIGHT. A&O X3, PLEASANT AND COOPERATIVE, BUT ANXIOUS AT TIMES. SHE REMAINS ON ROOM AIR, LUNGS CLEAR, SPO2 >96%. HR SR IN 90'S, BP NORMOTENSIVE. SHE IS ABLE TO AMBULATE TO BEDSIDE COMMODE WITH MINIMAL ASSISTANCE. AFEBRILE T/O SHIFT. WILL REPORT TO ONCOMING SHIFT.
--- NOTE | 2021-05-18 08:28 | NUR ---
AM NOTE... ASSUMED CARE OF PT AT 0700, THE PT IS A&Ox4. THE PT WAS SOUND ASLEEP WHEN THIS RN ENTERED THE ROOM, SOON THE PT WOKE UP SHE LOOKED AROUND, GRABBED HER EMISIS BAG AND STARTED TO RETCH, THERE WAS A SMALL AMOUNT OF UNDIGESTED EMISIS NOTED IN THE BAG. THE PT WAS MEDICATED PER EMAR. THE PT IS IN SR IN THE 90'S, BP IS HYPERTENSIVE BUT THE PT HAS BEEN RETCHING. NO EDEMA IS NOTED ON ASSESSMENT. THE PT IS ON RA WITH O2 SATS >90% L/S CLEAR T/O. BT PRESENT AND HYPOACTIVE, THE PT REFUSED ANY ABD PALPATIONS. THE PT CONTINUES TO BE OFF THE INSULING GTT, AM CBG WAS 102. THE PT IS A SBA TO [facility], SHE VOIDED 550MLS THIS AM. THE PROVIDER WAS AT THE BEDSIDE THIS AM, HE WAS UPDATED ON THE PT'S CONDITION, NO NEW ORDERS AT THIS TIME. PER THE PT SHE IS SUPPOSED TO GO TO [facility] FOR IN PT TREATMENT. WILL FOLLOW UP WITH PHONE SPECIALIST ON THIS ISSUE. WILL CONTINUE TO MONITOR.
--- NOTE | 2021-05-18 17:39 | NUR ---
SHIFT SUMMARY.... NO ACUTE NEGATIVE CHANGES NOTED THIS SHIFT. THE PT HAS C/O N/V INTERMITTENTLY T/O THIS SHIFT, PT HAS BEEN MEDICATED FOR THIS PER EMAR. THE PT HAS HAD A FEW EPISODES OF EMISIS BUT HAS HAD VERY MINIMAL OUTPUT DURING THESE EPISODES. DURING ONE OF THESE EPISODES THE PT BECAME EMOTIONAL STATING "I JUST WANT TO FEEL BETTER." THIS RN PROVIDED THERAPEUTIC LISTENING AND COMMUNICATION, THIS RN ALSO PROVIDED EDUCATION ON CONTROLLING HER DIABETES AND HOW UNCONTROLLED DIABETES CONTRIBUTES TO HER CURRENT ILLNESS. THE PT'S VS HAVE BEEN STABLE T/O THIS SHIFT. THE PT HAD ASKED THIS RN FOR A REGULAR SPRITE, THIS RN STATED THAT SHE COULD HAVE A DIET SPRITE ONCE IT ARRIVED FROM THE KITCHEN, THE PT THEN STATED "WELL MY BLOOD SUGAR ISN'T THAT HIGH RIGHT NOW WHY CAN'T I HAVE THE REGULAR SPRITE?" THE PT WAS THEN EDUCATED ON HOW REGULAR SODA DRINKS WILL INCREASE HER BLOOD SUGARS, THE PT VERBALIZED HER UNDERSTANDING OF THIS BUT STILL REQUESTED A REGULAR SPRITE. CALL LIGHT IN REACH WILL CONTINUE TO MONITOR UNTIL REPORT IS GIVEN TO ONCOMING RN.
--- NOTE | 2021-05-18 20:17 | NUR ---
ASSUMED CARE OF PATIENT AT 1900. PT STATES SHE HAD A RESTFUL DAY WITH N/V INTERMITTENTLY. A/O X4, AND MILDLY ANXIOUS SHE REPORTS NAUSEA CURRENTLY. MEDICATED WITH PRN PHENERGAN. VSS, ON ROOM AIR WITH BP ELEVATED AT 140/80, HOWEVER SHE IS RETCHING. TELEMETRY IS DISCONTINUED. SHE CONTINUES TO USE THE BEDSIDE COMMODE AND HAD 500ML CLEAR, YELLOW URINE OUT THIS EVENING. ORDERS REVIEWED AND WILL TREAT PRESCRIBED.
[2021-05-19 04:47] LABS: BASOPHILS ABSOLUTE AUTO 0.02 K/mm3 (0.00-0.23); BASOPHILS PERCENT AUTO 0 % (0-2); EOSINOPHILS ABSOLUTE AUTO 0.02 K/mm3 (0.00-0.68); EOSINOPHILS PERCENT AUTO 0 % (0-6); Hematocrit 30.2 % (33.0-51.0); Hemoglobin 9.9 g/dL (11.5-16.0); IMMATURE GRAN ABSOLUTE AUTO 0.02 K/mm3 (0.00-0.10); IMMATURE GRAN PERCENT AUTO 0 % (0-1); LYMPHOCYTES ABSOLUTE AUTO 2.89 K/mm3 (0.84-5.20); LYMPHOCYTES PERCENT AUTO 42 % (21-46); MONOCYTES ABSOLUTE AUTO 0.51 K/mm3 (0.16-1.47); MONOCYTES PERCENT AUTO 8 % (4-13); Mean Corpuscular HGB 29.1 pg (26.0-34.0); Mean Corpuscular HGB Conc 32.8 g/dL (31.5-36.5); Mean Corpuscular Volume 89 fL (80-100); Mean Platelet Volume 10.4 fL (9.1-12.4); NEUTROPHILS ABSOLUTE AUTO 3.36 K/mm3 (1.96-9.15); NEUTROPHILS PERCENT AUTO 49 % (41-73); Platelet Count 273 K/mm3 (150-400); RDW Coefficient Variation 14.4 % (11.7-14.2); RDW Standard Deviation 46.6 fL (35.1-46.3); White Blood Cell Count 6.82 K/mm3 (4.00-11.30)
[2021-05-19 05:04] LABS: Anion Gap 8 mmol/L (6-16); Blood Urea Nitrogen 13 mg/dL (8-24); CO2, Blood 29 mmol/L (21-32); Chloride, Blood 104 mmol/L (98-108); Creatinine, Blood 0.59 mg/dL (0.40-1.00); Glomerular Filtration Rate >60 (60-); Glucose, Blood 186 mg/dL (70-99); Potassium, Blood 3.2 mmol/L (3.5-5.5); Sodium, Blood 141 mmol/L (136-145)
--- NOTE | 2021-05-19 06:35 | NUR ---
PT SLEPT WELL THIS SHIFT. NAUSEA CONTINUES TO IMPROVE WELL APPETITE. NO EPISODES OF VOMITING. VSS, AFEBRILE. USING BEDSIDE COMMODE WITH MINIMAL ASSISTANCE. POTASSIUM 20MEQ REPLACEMENT THIS AM FOR LOW LEVEL OF 3.2. WILL REPORT TO ONCOMING SHIFT.
--- NOTE | 2021-05-19 08:48 | NUR ---
AM NOTE... ASSUMED CARE OF PT AT 0700, THE PT IS A&Ox4. THE PT IS C/O OF NAUSEA AND IS ANXIOUS, HER BP AT THIS TIME IS IN THE 170'S, THE PT'S OTHER VS STABLE. THE PT IS C/O OF NAUSEA BUT IS REQUESTING ANOTHER BREAKFAST TRAY WITH SAUSAGE, PT MEDICATED PER EMAR. THE PT IS ABLE TO PIVOT TRANSFER TO THE BSC INDEPENDENTLY. PLANS TO D/C PT HOME TODAY WILL CONITNUE TO MONITOR.
[2021-05-19] MEDS ORDERED: METO10 PO (13:00)
--- NOTE | 2021-05-19 13:39 | NUR ---
PT D/C HOME.... PT D/C HOME ALL OF PT'S BELONGINGS PACKED AND SENT WITH THE PT. VERBAL AND WRITTEN EDUCATION PROVIDED TO THE PT ABOUT DIABETES, DKA AND SELF CARE. PT VERBALIZED HER UNDERSTANDING. POWER GLIDE IN THE BERNARDINO WAS REMOVED WNL. PT WAS TAKEN HOME VIA [facility].
== END 2021-05-19 14:30 | disposition home or self-care (01) | DRG 637 ==
LOC: ER 12:03 → ERHOLD 15:17 → ICUE 20:35
PROVIDERS: Family Medicine; Physician Assistant; ADMIT Internal Medicine
DX: E10.10 Type 1 diabetes mellitus with ketoacidosis without coma (principal); G92.8 Other toxic encephalopathy; E87.1 Hypo-osmolality and hyponatremia; R65.10 Systemic inflammatory response syndrome (SIRS) of non-infectious origin without acute organ dysfunction; E87.5 Hyperkalemia; E87.6 Hypokalemia; F17.210 Nicotine dependence, cigarettes, uncomplicated; Z88.5 Allergy status to narcotic agent; Z88.1 Allergy status to other antibiotic agents; Z88.8 Allergy status to other drugs, medicaments and biological substances; K21.9 Gastro-esophageal reflux disease without esophagitis; F15.10 Other stimulant abuse, uncomplicated; F41.9 Anxiety disorder, unspecified; F32.A Depression, unspecified; I10 Essential (primary) hypertension; J44.9 Chronic obstructive pulmonary disease, unspecified; Z90.49 Acquired absence of other specified parts of digestive tract; Z90.710 Acquired absence of both cervix and uterus; Z98.890 Other specified postprocedural states; Z79.899 Other long term (current) drug therapy; Z79.4 Long term (current) use of insulin; F32.9 Major depressive disorder, single episode, unspecified; G40.909 Epilepsy, unspecified, not intractable, without status epilepticus; Z89.512 Acquired absence of left leg below knee
CPT/HCPCS: 36415; 71045; 80048; 80053; 81001; 82010; 82803; 82947; 83735; 84100; 85025; 87040; 87086; 93005; 93010; 96374; 96375; 96376; 99285-25; A9270; C1751; J1650; J1815; J2405; J2550; J2765; J3480; J7030; J7042

== ENCOUNTER 2021-06-03 09:02 | Inpatient (IN) | payer OTHER ==
[~2021-06-03] VITALS: Ht 160 cm; Wt 56.2 kg
[~2021-06-03 09:02] MED LIST changes: +METO10 PO
[2021-06-03 10:13] LABS: Source, Urine Clean Catch
[2021-06-03 10:35] LABS: BASOPHILS ABSOLUTE AUTO 0.09 K/mm3 (0.00-0.23); BASOPHILS PERCENT AUTO 1 % (0-2); EOSINOPHILS PERCENT AUTO 0 % (0-6); Hematocrit 37.3 % (33.0-51.0); Hemoglobin 11.5 g/dL (11.5-16.0); IMMATURE GRAN ABSOLUTE AUTO 0.11 K/mm3 (0.00-0.10); IMMATURE GRAN PERCENT AUTO 1 % (0-1); LYMPHOCYTES ABSOLUTE AUTO 1.43 K/mm3 (0.84-5.20); LYMPHOCYTES PERCENT AUTO 11 % (21-46); MONOCYTES ABSOLUTE AUTO 0.37 K/mm3 (0.16-1.47); MONOCYTES PERCENT AUTO 3 % (4-13); Mean Corpuscular HGB 29.3 pg (26.0-34.0); Mean Corpuscular HGB Conc 30.8 g/dL (31.5-36.5); Mean Corpuscular Volume 95 fL (80-100); Mean Platelet Volume 10.5 fL (9.1-12.4); NEUTROPHILS ABSOLUTE AUTO 11.55 K/mm3 (1.96-9.15); NEUTROPHILS PERCENT AUTO 85 % (41-73); Platelet Count 576 K/mm3 (150-400); RDW Standard Deviation 49.1 fL (35.1-46.3); Red Blood Cell Count 3.93 M/mm3 (3.80-5.20); White Blood Cell Count 13.55 K/mm3 (4.00-11.30)
[2021-06-03 10:38] LABS: Appearance, Urine Clear (Clear); Bilirubin, Urine Neg (Neg); Blood, Urine Neg (Neg); Color, Urine Yellow (P-Yellow); Glucose Qualitative, Urine 4+ (Neg); Ketones, Urine 4+ (Neg); Leukocyte Esterase, Urine Neg (Neg); Nitrite, Urine Neg (Neg); Protein, Urine 3+ (Neg); Specific Gravity, Urine 1.015 (1.003-1.022); Urobilinogen, Urine NORM (Normal)
[2021-06-03 11:01] LABS: Alanine Aminotransfer (ALT/SGP 22 U/L (12-78); Albumin/Globulin Ratio 0.7 (0.8-1.8); Alk Phos 151 U/L (50-136); Anion Gap 30 mmol/L (6-16); Aspartate Aminotrans (AST/SGOT 14 U/L (12-37); Bilirubin, Total 0.5 mg/dL (0.1-1.0); Blood Urea Nitrogen 35 mg/dL (8-24); Bun/Creatinine Ratio 42.3 (12.0-20.0); CO2, Blood 8 mmol/L (21-32); Calcium, Blood 9.3 mg/dL (8.5-10.1); Chloride, Blood 91 mmol/L (98-108); Creatinine, Blood 0.83 mg/dL (0.40-1.00); Globulin, Blood 4.6 g/dL (2.2-4.0); Glomerular Filtration Rate >60 (60-); Glucose, Blood 982 mg/dL (70-99); Potassium, Blood 5.1 mmol/L (3.5-5.5); Sodium, Blood 129 mmol/L (136-145); Total Protein, Blood 7.6 g/dL (6.4-8.2)
[2021-06-03 11:19] LABS: U Amphetamine Screen Not Detected; U Barbituate Screen Not Detected; U Benzodiazapine Screen Not Detected; U Buprenorphine Screen Not Detected; U Cannabinoids Screen DETECTED; U Cocaine Screen Not Detected; U Methadone Screen Not Detected; U Methamphetamine Screen Not Detected; U Opiates Screen Not Detected; U Oxycodone Screen Not Detected; U Phencyclidine Screen Not Detected; U Propoxyphene Screen Not Detected
[2021-06-03 11:27] LABS: Bacteria Rare /hpf; Red Blood Cells, Urine 0-2 /hpf (0-2); Squamous Epithelial Cells Few /hpf (Few); White Blood Cells, Urine 0-2 /hpf (0-5)
[2021-06-03 11:28] LABS: Amorphous Light (0-Heavy); Mucus Light (0-Heavy)
[2021-06-03 13:21] LABS: PCO2 Venous 16.8 mmHg (38-42)
[2021-06-03 13:26] LABS: pH Blood Venous 6.93 (7.34-7.37)
[2021-06-03 14:26] LABS: Anion Gap 26 mmol/L (6-16); Blood Urea Nitrogen 33 mg/dL (8-24); Bun/Creatinine Ratio 44.2 (12.0-20.0); CO2, Blood 4 mmol/L (21-32); Calcium, Blood 7.9 mg/dL (8.5-10.1); Chloride, Blood 96 mmol/L (98-108); Creatinine, Blood 0.75 mg/dL (0.40-1.00); Glomerular Filtration Rate >60 (60-); Glucose, Blood 759 mg/dL (70-99); Sodium, Blood 126 mmol/L (136-145)
--- NOTE | 2021-06-03 19:33 | NUR ---
PT ARRIVAL.... PT ARRIVED ON THE UNIT AT 1700, THE PT IS A&Ox4 AND WAS ABLE TO SELF TRANSFER FROM THE GURNEY TO THE BED. THE PT WAS ADMITTED FOR DKA, SHE IS ON AN INSULIN GTT AT 5 UNTIS/HR. THE PT IS ALSO ON A D5 W1/2 NS AND KCL RUNNING AT 200MLS/HR. THE PT IS ON RA WITH O2 SATS >90% L/S CLEAR T/O. BT PRESENT AND HYPERACTIVE,ABD IS SOFT AND TENDER TO PALP. THE PT IS C/O OF N/V AT HOME BUT NOT AT THIS TIME. THE PT'S BP AND HR STABLE. NO EDEMA NOTED ON ASSESSMENT. THE PT IS ANXIOUS AND TEARFUL ASKING FOR FOOD AND SAYING "I HAVEN'T ATE ANYTHING IN 2 DAYS" THE PT WAS ALSO ASKING FOR IV DILAUDID STATING "ITS THE ONLY THING THAT HELPS MY PAIN." THE PT WAS UPSET WHEN THIS RN TOLD HER THAT THIS MEDICATON WAS NOT ORDERED FOR HER AT THIS TIME. CALL LIGHT IN REACH, REPORT GIVEN TO THE ONCOMING RN.
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
[2021-06-03 20:02] LABS: Anion Gap 7 mmol/L (6-16); Blood Urea Nitrogen 22 mg/dL (8-24); Bun/Creatinine Ratio 36.2 (12.0-20.0); CO2, Blood 18 mmol/L (21-32); Calcium, Blood 7.6 mg/dL (8.5-10.1); Chloride, Blood 111 mmol/L (98-108); Creatinine, Blood 0.61 mg/dL (0.40-1.00); Glomerular Filtration Rate >60 (60-); Glucose, Blood 197 mg/dL (70-99); Sodium, Blood 136 mmol/L (136-145)
--- NOTE | 2021-06-03 21:30 | NUR ---
LABS RECEIVED. ANION GAP IS CLOSED AT 7, CARBON DIOXIDE AT 18, MOST RECENT CBG OF 188. INSULIN GTT AT 4UNITS/HR. CALL PLACED TO DR. CASTREJON, ORDERS GIVEN TO RESTART LA INSULIN 25 UNITS NOW, THEN BID; MED SCALE SA INSULIN; CBG AC & HS; FLUIDS CHANGED TO NS AT 200ML/HR AFTER PHOSPHOROUS REPLACEMENT OF 30MM IN NS FOR PHOS OF 1.3. PT HAS BEEN COMPLAINING OF ESOPHAGEAL PAIN FROM VOMITING, MAY CONTINUE TORADOL PRN AND MAY ALSO GIVE GI COCKTAIL IF NEEDED. DIET CHANGED TO ADA AND PT HAS BEEN REQUESTING SNACKS FREQUENTLY.
[2021-06-03 23:48] LABS: Anion Gap 9 mmol/L (6-16); Blood Urea Nitrogen 19 mg/dL (8-24); Bun/Creatinine Ratio 28.7 (12.0-20.0); CO2, Blood 17 mmol/L (21-32); Calcium, Blood 7.4 mg/dL (8.5-10.1); Chloride, Blood 108 mmol/L (98-108); Creatinine, Blood 0.66 mg/dL (0.40-1.00); Glomerular Filtration Rate >60 (60-); Glucose, Blood 344 mg/dL (70-99); Magnesium, Blood 1.5 mg/dL (1.6-2.4); Phosphorus, Blood 2.4 mg/dL (2.5-4.9); Potassium, Blood 3.9 mmol/L (3.5-5.5); Sodium, Blood 134 mmol/L (136-145)
--- NOTE | 2021-06-04 01:20 | NUR ---
REASSESSMENT PT SLEEPING OFF/ON. CONTINUES TO REQUEST FOOD/SNACKS AND WILL FINISH ALL THE SNACKS AND DRINKS OFFERED. ANXIETY AND SOBBING SUBSIDED. PT NOW WITH MILD FEVER OF 99.5, HOWEVER WAS VERY BUNDLED UNDER MULTIPLE BLANKETS. MOST RECENT CBG'S HAVE SPIKED INTO 300'S, LIKELY R/T FOOD. TREATED WITH TORADOL FOR ESOPHAGEAL PAIN PER EMAR. VSS.
[2021-06-04 03:38] LABS: Hematocrit 24.1 % (33.0-51.0); Mean Corpuscular HGB 29.6 pg (26.0-34.0); Mean Corpuscular HGB Conc 33.2 g/dL (31.5-36.5); Mean Platelet Volume 9.6 fL (9.1-12.4); Platelet Count 342 K/mm3 (150-400); RDW Standard Deviation 45.4 fL (35.1-46.3); White Blood Cell Count 10.95 K/mm3 (4.00-11.30)
[2021-06-04 03:42] LABS: Mean Corpuscular Volume 89 fL (80-100)
[2021-06-04 03:59] LABS: Magnesium, Blood 1.5 mg/dL (1.6-2.4)
[2021-06-04 04:00] LABS: Anion Gap 9 mmol/L (6-16); Blood Urea Nitrogen 19 mg/dL (8-24); Bun/Creatinine Ratio 31.6 (12.0-20.0); CO2, Blood 18 mmol/L (21-32); Chloride, Blood 107 mmol/L (98-108); Glomerular Filtration Rate >60 (60-); Glucose, Blood 412 mg/dL (70-99); Phosphorus, Blood 3.8 mg/dL (2.5-4.9); Potassium, Blood 3.6 mmol/L (3.5-5.5); Sodium, Blood 134 mmol/L (136-145)
--- NOTE | 2021-06-04 05:24 | NUR ---
CALL TO DR. PENALOZA RE: BLOOD GLUCOSE OF 412. ORDERS TO GIVE 40 UNITS LANTUS NOW, AND WILL RESUME 25 UNIT DOSE AT BEDTIME AND BID THEREAFTER.
--- NOTE | 2021-06-04 06:21 | NUR ---
PT SLEPT T/O MOST OF SHIFT. INSULIN GTT OFF SINCE 2300; HOWEVER, DUE TO HER INCREASED APPETITE AND FOOD INTAKE, HER GLUCOSE YOLIE TO 412 THIS AM. MEDICATED WITH LANTUS 40 UNITS X1, AND PT HAD SNACK. MEDICATED FOR NAUSEA X2 PER EMAR, WELL TORADOL X2. SHE CONTINUES TO REPORT EPIGASTRIC PAIN WELL ORAL PAIN FROM EXCESSIVE VOMITING. NO EMESIS THIS SHIFT. VSS, SHE CONTINUES ON ROOM AIR. WILL REPORT TO ONCOMING SHIFT.
[2021-06-04] MEDS ORDERED: GABA300 PO (08:03)
[2021-06-04 08:38] LABS: Anion Gap 10 mmol/L (6-16); Blood Urea Nitrogen 16 mg/dL (8-24); Bun/Creatinine Ratio 27.4 (12.0-20.0); CO2, Blood 16 mmol/L (21-32); Calcium, Blood 7.5 mg/dL (8.5-10.1); Chloride, Blood 111 mmol/L (98-108); Creatinine, Blood 0.59 mg/dL (0.40-1.00); Glomerular Filtration Rate >60 (60-); Glucose, Blood 301 mg/dL (70-99); Magnesium, Blood 1.7 mg/dL (1.6-2.4); Phosphorus, Blood 2.3 mg/dL (2.5-4.9); Potassium, Blood 3.7 mmol/L (3.5-5.5); Sodium, Blood 137 mmol/L (136-145)
--- NOTE | 2021-06-04 10:39 | NUR ---
PAIN PT REQUESTING SOMETHING FOR PAIN. OFFERED TYLENOL BUT PT DIDN'T WANT IT. SPOKE WITH DR. CONTRERAS AND HE WANTED IV PAIN MEDS DC'D OFF PT JUL, BUT SAID PT COULD HAVE IBUPROFEN. OFFERED PT IBUPROFEN, BUT SHE REFUSED THAT TOO.
--- NOTE | 2021-06-04 12:59 | NUR ---
REASSESSMENT PT'S BLOOD SUGARS HAVE CONTINUED TO BE LESS THAN 300 AND PT IS EATING 100% OF HER MEALS. SHE FREQUENTLY ASKS FOR MORE FOOD, HAS HAD AN EXTRA MILK WITH BREAKFAST AND LUNCH. SHE ASKS FOR JUICE FREQUENTLY, BUT OFFERED HER DIET SPRITE INSTEAD AND SHE WAS OK WITH THAT. SHE STILL COMPLAINS OF NAUSEA, EVEN SHE EATS HER MEALS, PRNS GIVEN. LUNGS REMAINS CLEAR, SR, BP STABLE, VOIDING. PLAN IS FOR PT TO DISCHARGE THIS AFTERNOON. MED REC HAS NO NEW MEDS ON IT, BUT PT SAYS SHE HAS NO REFILLS LEFT ON HER INSULIN AT [facility]. SPOKE WTIH DR. SOUSA AND SHE AUTHORIZED 3 REFILLS FOR HER SHORT AND LONG ACTING INSULINS.
--- NOTE | 2021-06-04 16:14 | NUR ---
Pt. was alert in bed, and welcomed my visit. Pt. was awaiting discharge. Pt, was anticipating a move to [facility] for rehab. Encouraged self care. Pt. displayed a restored sense of hope. [employer] Review. Pt. displayed evidence of empowerment to address her well being and a motivation to have a powerful influence on her family. Prayed with Pt. Pt. verbalized gratitude for the visit.
--- NOTE | 2021-06-04 17:48 | NUR ---
SHIFT SUMMARY PT HAS CONTINUED TO MAINTAIN BLOOD SUGARS BELOW 300 WITH HER EATING A FULL DIET. SHE STILL COMPLAINS OF NAUSEA, BUT HAS NOT THROWN UP ANY OF THE FOOD SHE HAS EATEN. SHE IS GETTING UP TO THE BSC TO VOID WITHOUT ANY DIFFICULTY. FOAM DRESSING PLACED OVER WOUND ON R FOOT THIS MORNING AND REMAINS C/D/I. PLAN IS FOR PT TO DISCHARGE TONIGHT. CALLED TO MAKE SURE PT'S INSULIN IS READY FOR PICKUP AT [facility] THEN TRANSPORT ARRANGED, BUT TRANSPORT SHOWED UP WITHOUT A WHEELCHAIR. CALLED TRANSPORTATION BACK AND THEY SAID PT WAS SET FOR 1700 WITH A WHEELCHAIR VAN, BUT NO TRANSPORT HAS SHOWN UP YET. VICK WU, PERSONAL TRAINER CURRENTLY CALLING TRANSPORT BACK TO FIND OUT WHEN TRANSPORT WILL BE AVAILABLE. PT IS EATING HER DINNER CURRENTLY. CONTINUING TO MONITOR UNTIL SHE IS ABLE TO DISCHARGE.
--- NOTE | 2021-06-04 18:55 | NUR ---
PT DISCHARGED VIA VAN. ALL BELONGINGS SENT HOME WITH PT. [facility] TO GET A HOLD OF PT TOMORROW MORNING TO GET PT HER INSULIN FROM PHARMACY SINCE TRANSPORT TO THE PHARMACY WASN'T ABLE TO OCCUR TODAY. PT AGREEABLE TO ALL OF THIS.
== END 2021-06-04 18:59 | disposition home or self-care (01) | DRG 638 ==
LOC: ER 09:02 → ERHOLD 12:07 → ICUW 13:22 → ICUE 16:46
PROVIDERS: Emergency Medicine; ADMIT Internal Medicine
DX: E10.10 Type 1 diabetes mellitus with ketoacidosis without coma (principal); E87.1 Hypo-osmolality and hyponatremia; K21.9 Gastro-esophageal reflux disease without esophagitis; F41.9 Anxiety disorder, unspecified; F32.A Depression, unspecified; I10 Essential (primary) hypertension; J44.9 Chronic obstructive pulmonary disease, unspecified; G40.909 Epilepsy, unspecified, not intractable, without status epilepticus; E10.40 Type 1 diabetes mellitus with diabetic neuropathy, unspecified; F17.210 Nicotine dependence, cigarettes, uncomplicated; G47.00 Insomnia, unspecified; G43.909 Migraine, unspecified, not intractable, without status migrainosus; T87.89 Other complications of amputation stump; L97.519 Non-pressure chronic ulcer of other part of right foot with unspecified severity; F19.11 Other psychoactive substance abuse, in remission; Z89.512 Acquired absence of left leg below knee; Z79.899 Other long term (current) drug therapy; Z79.4 Long term (current) use of insulin; Z88.5 Allergy status to narcotic agent; Z88.1 Allergy status to other antibiotic agents; Z91.14 Patient's other noncompliance with medication regimen; Z86.14 Personal history of Methicillin resistant Staphylococcus aureus infection; Z87.39 Personal history of other diseases of the musculoskeletal system and connective tissue
CPT/HCPCS: 36415; 80048; 80053; 81001; 82803; 82947; 83735; 84100; 85025; 85027; 93005; 93010; 96374; 96375; 96376; 99285-25; A9270; C1751; C9113; J1170; J1815; J1885; J2405; J2765; J3010; J3475; J7030; J7040

== ENCOUNTER 2021-07-15 10:06 | Inpatient (IN) | payer OTHER ==
[~2021-07-15] VITALS: Ht 172.7 cm; Wt 56.0 kg
[2021-07-15 10:43] LABS: BASOPHILS ABSOLUTE AUTO 0.05 K/mm3 (0.00-0.23); BASOPHILS PERCENT AUTO 0 % (0-2); EOSINOPHILS PERCENT AUTO 0 % (0-6); Hematocrit 44.2 % (33.0-51.0); Hemoglobin 13.8 g/dL (11.5-16.0); IMMATURE GRAN ABSOLUTE AUTO 0.12 K/mm3 (0.00-0.10); IMMATURE GRAN PERCENT AUTO 1 % (0-1); LYMPHOCYTES ABSOLUTE AUTO 1.81 K/mm3 (0.84-5.20); LYMPHOCYTES PERCENT AUTO 13 % (21-46); MONOCYTES ABSOLUTE AUTO 0.66 K/mm3 (0.16-1.47); MONOCYTES PERCENT AUTO 5 % (4-13); Mean Corpuscular HGB 27.4 pg (26.0-34.0); Mean Corpuscular HGB Conc 31.2 g/dL (31.5-36.5); Mean Corpuscular Volume 88 fL (80-100); Mean Platelet Volume 10.7 fL (9.1-12.4); NEUTROPHILS ABSOLUTE AUTO 11.38 K/mm3 (1.96-9.15); NEUTROPHILS PERCENT AUTO 81 % (41-73); Platelet Count 414 K/mm3 (150-400); RDW Coefficient Variation 13.7 % (11.7-14.2); RDW Standard Deviation 44.1 fL (35.1-46.3); Red Blood Cell Count 5.03 M/mm3 (3.80-5.20); White Blood Cell Count 14.02 K/mm3 (4.00-11.30)
[2021-07-15 10:45] LABS: Bicarbonate Venous 10.1 mmol/L (24.0-30.0); PCO2 Venous 23.9 mmHg (38-42); pH Blood Venous 7.11 (7.34-7.37)
[2021-07-15 11:04] LABS: Alanine Aminotransfer (ALT/SGP 20 U/L (12-78); Albumin, Blood 3.7 g/dL (3.4-5.0); Albumin/Globulin Ratio 0.7 (0.8-1.8); Alk Phos 164 U/L (50-136); Anion Gap 21 mmol/L (6-16); Aspartate Aminotrans (AST/SGOT 16 U/L (12-37); Bilirubin, Total 0.3 mg/dL (0.1-1.0); Blood Urea Nitrogen 44 mg/dL (8-24); Bun/Creatinine Ratio 51.2 (12.0-20.0); CO2, Blood 8 mmol/L (21-32); Calcium, Blood 9.1 mg/dL (8.5-10.1); Chloride, Blood 94 mmol/L (98-108); Creatinine, Blood 0.86 mg/dL (0.40-1.00); Glomerular Filtration Rate >60 (60-); Glucose, Blood 601 mg/dL (70-99); Potassium, Blood 4.9 mmol/L (3.5-5.5); Sodium, Blood 123 mmol/L (136-145); Total Protein, Blood 8.7 g/dL (6.4-8.2)
[2021-07-15 11:09] LABS: Bilirubin, Urine Neg (Neg); Blood, Urine 2+ (Neg); Glucose Qualitative, Urine 4+ (Neg); Ketones, Urine 4+ (Neg); Leukocyte Esterase, Urine Neg (Neg); Nitrite, Urine Neg (Neg); Protein, Urine 3+ (Neg); Source, Urine Voided; Urobilinogen, Urine NORM (Normal)
[2021-07-15 11:27] LABS: Appearance, Urine Clear (Clear); Color, Urine Pale Yellow (P-Yellow)
[2021-07-15 11:28] LABS: Squamous Epithelial Cells Rare /hpf (Few); White Blood Cells, Urine 0-2 /hpf (0-5)
[2021-07-15 11:29] LABS: Bacteria Rare /hpf; Granular Casts 0-2 /lpf (0); Hyaline Casts 0-2 /lpf (0-2)
[2021-07-15 13:12] LABS: Anion Gap 26 mmol/L (6-16); Blood Urea Nitrogen 47 mg/dL (8-24); Bun/Creatinine Ratio 54.7 (12.0-20.0); CO2, Blood 5 mmol/L (21-32); Calcium, Blood 8.7 mg/dL (8.5-10.1); Chloride, Blood 96 mmol/L (98-108); Creatinine, Blood 0.86 mg/dL (0.40-1.00); Glomerular Filtration Rate >60 (60-); Glucose, Blood 606 mg/dL (70-99); Potassium, Blood 4.6 mmol/L (3.5-5.5); Sodium, Blood 127 mmol/L (136-145)
[2021-07-15 13:13] LABS: Glucose, Blood 616 mg/dL (70-99)
[2021-07-15 13:33] LABS: U Amphetamine Screen Not Detected; U Barbituate Screen Not Detected; U Benzodiazapine Screen Not Detected; U Buprenorphine Screen Not Detected; U Cannabinoids Screen Not Detected; U Cocaine Screen Not Detected; U Methadone Screen Not Detected; U Methamphetamine Screen Not Detected; U Opiates Screen Not Detected; U Oxycodone Screen Not Detected; U Phencyclidine Screen Not Detected; U Propoxyphene Screen Not Detected
--- NOTE | 2021-07-15 14:59 | NUR ---
PT ARRIVAL.... PT ARRIVED ON THE UNIT VIA GURNEY SHE WAS PULLED OVER TO THE BED BY 4 STAFF. THE PT WAS ON AN INSULIN DRIP RUNNING AT APROX 6UNITS/HR UPON ARRIVAL HER GLUCOSE WAS 616 PER LAB, HER INSULIN DRIP WAS INCREASED FROM 6 UNITS TO 8 UNITS. A POWERGLIDE WAS PLACED FOR IMPROVED ACCESS. THE PT'S VS STABLE AT THIS TIME. THE PT WAS C/O OF N/V AND WAS MEDICATED PER EMAR. PICTURES WERE TAKEN OF THE PT'S CHRONIC RIGHT FOOT WOUND AND PLACED IN THE CHART. WILL CONTINUE TO MONITOR.
[2021-07-15 16:51] LABS: Anion Gap 10 mmol/L (6-16); Blood Urea Nitrogen 38 mg/dL (8-24); Bun/Creatinine Ratio 52.7 (12.0-20.0); CO2, Blood 13 mmol/L (21-32); Calcium, Blood 6.8 mg/dL (8.5-10.1); Chloride, Blood 114 mmol/L (98-108); Creatinine, Blood 0.72 mg/dL (0.40-1.00); Glomerular Filtration Rate >60 (60-); Glucose, Blood 311 mg/dL (70-99); Potassium, Blood 3.9 mmol/L (3.5-5.5); Sodium, Blood 137 mmol/L (136-145)
[2021-07-15 18:22] LABS: Hematocrit 30.3 % (33.0-51.0); Hemoglobin 10.2 g/dL (11.5-16.0)
--- NOTE | 2021-07-15 18:49 | NUR ---
SHIFT SUMMARY.... THE PT CONTINUES ON THE INSULIN DRIP AT 6U/HR, THE PT WAS STARTED ON D5W W/ 1/2 NS AT 125MLS/HR PER DR. COLLINS. THE PT HAS BEEN HAVING COFFEE GROUND EMESIS SINCE ADMISSION, PROVIDER AWARE AND A NEW ORDER OF IV PROTONIX WAS OBTAINED AND GIVEN. THE PT HAS BEEN MEDICATED FOR N/V PER EMAR. THE PT HAS USED THE BED PHILIP TO VOID. THE PT HAS GOTTEN SOME EMESIS ON HER BLANKETS AND LINENS BUT HAS REFUSED TO ALLOW STAFF TO CLEAN IT UP. CALL LIGHT IN REACH WILL CONTINUE TO MONITOR UNTIL REPORT IS GIVEN TO ONCOMING RN.
--- NOTE | 2021-07-15 19:00 | NUR ---
ASSUMPTION OF CARE PT CURRENTLY SLEEPING. SHE IS RECEIVING INSULIN GTT 6UNITS/HR, D5W 1/2 125ML/HR, AND NS 250ML/HR. WAKES EASILY TO VERBAL STIMULI. VSS AT THIS TIME. SEE SHIFT ASSESSMENT.
[2021-07-15 20:45] LABS: Anion Gap 6 mmol/L (6-16); Blood Urea Nitrogen 35 mg/dL (8-24); Bun/Creatinine Ratio 53.8 (12.0-20.0); CO2, Blood 18 mmol/L (21-32); Calcium, Blood 7.3 mg/dL (8.5-10.1); Chloride, Blood 116 mmol/L (98-108); Creatinine, Blood 0.65 mg/dL (0.40-1.00); Glomerular Filtration Rate >60 (60-); Glucose, Blood 190 mg/dL (70-99); Sodium, Blood 140 mmol/L (136-145)
--- NOTE | 2021-07-15 21:30 | NUR ---
UPDATE PT REQUESTING WATER. DENIES NAUSEA, NO LONGER EXPERIENCING DRY HEAVING. PT GIVEN ORAL SWAB AND ICE CHIPS. TOLERATING WELL.
--- NOTE | 2021-07-15 23:05 | NUR ---
HOME REGIMEN INSULIN GTT ON SB FOR 2 HOURS, GLUCOSE LEVELS RANGED BETWEEN 177-245. PT ALERT, TOLERATING ICE CHIPS AND WATER. DENIES NAUSEA. INSULIN GTT RESTARTED AT 2UNITS/HR FOR NOW. DISCUSSED PT'S CONDITION WITH DR PENALOZA. ORDER RECEIVED TO START HOME REGIMEN AND ATTEMPT TO STOP INSULIN GTT TONIGHT.
[2021-07-16 01:00] LABS: Anion Gap 9 mmol/L (6-16); Blood Urea Nitrogen 26 mg/dL (8-24); CO2, Blood 17 mmol/L (21-32); Calcium, Blood 7.2 mg/dL (8.5-10.1); Chloride, Blood 113 mmol/L (98-108); Creatinine, Blood 0.65 mg/dL (0.40-1.00); Glomerular Filtration Rate >60 (60-); Glucose, Blood 273 mg/dL (70-99); Potassium, Blood 3.7 mmol/L (3.5-5.5); Sodium, Blood 139 mmol/L (136-145)
[2021-07-16 04:32] LABS: BASOPHILS ABSOLUTE AUTO 0.01 K/mm3 (0.00-0.23); BASOPHILS PERCENT AUTO 0 % (0-2); EOSINOPHILS PERCENT AUTO 0 % (0-6); Hemoglobin 8.8 g/dL (11.5-16.0); IMMATURE GRAN ABSOLUTE AUTO 0.05 K/mm3 (0.00-0.10); IMMATURE GRAN PERCENT AUTO 0 % (0-1); LYMPHOCYTES PERCENT AUTO 12 % (21-46); MONOCYTES ABSOLUTE AUTO 1.13 K/mm3 (0.16-1.47); MONOCYTES PERCENT AUTO 9 % (4-13); Mean Corpuscular HGB 28.2 pg (26.0-34.0); Mean Corpuscular HGB Conc 33.8 g/dL (31.5-36.5); Mean Platelet Volume 10.1 fL (9.1-12.4); NEUTROPHILS PERCENT AUTO 78 % (41-73); Platelet Count 287 K/mm3 (150-400); RDW Coefficient Variation 13.9 % (11.7-14.2); RDW Standard Deviation 42.5 fL (35.1-46.3); Red Blood Cell Count 3.12 M/mm3 (3.80-5.20); White Blood Cell Count 12.39 K/mm3 (4.00-11.30)
[2021-07-16 04:53] LABS: Anion Gap 11 mmol/L (6-16); Blood Urea Nitrogen 19 mg/dL (8-24); Bun/Creatinine Ratio 34.3 (12.0-20.0); CO2, Blood 16 mmol/L (21-32); Calcium, Blood 6.9 mg/dL (8.5-10.1); Chloride, Blood 110 mmol/L (98-108); Creatinine, Blood 0.55 mg/dL (0.40-1.00); Glomerular Filtration Rate >60 (60-); Glucose, Blood 302 mg/dL (70-99); Potassium, Blood 3.3 mmol/L (3.5-5.5); Sodium, Blood 137 mmol/L (136-145)
[2021-07-16 05:02] LABS: Mean Corpuscular Volume 83 fL (80-100)
--- NOTE | 2021-07-16 06:35 | NUR ---
SHIFT SUMMARY PT HAS SLEPT THROUGH MOST OF NIGHT, WAKENS EASILY TO VERBAL STIMULI. SHE REMAINS ON INSULIN GTT AT 1UNIT/HR, D5W 1/2 125ML/HR AND NS 150ML/HR. I CALLED DR DANIELSON REGARDING AM LABS AND DISCUSSED CHANGING FLUID ORDERS. ORDER RECEIVED FOR KCL, AND SHE PLANS TO REVIEW THE CHART AND WILL CHANGE ORDERS ACCORDINGLY. PT IS TOLERATING PO FLUIDS WELL. HAS SMALL MOMENTS OF NAUSEA THAT RESOLVE QUICKLY. NO EMESIS THIS SHIFT. SHE HAS USED BEDPAN EVERY 1-2 HOURS DUE TO POLYURIA. PT REPORTS FEELING "BETTER". ATTEMPTING TO DC INSULIN GTT AND RESTART HOME REGIMEN.
--- NOTE | 2021-07-16 07:30 | NUR ---
ASSUMED CARE: PT CURRENTLY ON 1UNIT IVINSULIN GTT WITH FLUIDS RUNNING. REVIEWED LABS AND WILL DISCUSS WITH MD FURTHER. CURRENTLY NSR AT 88 ON TELE. NO ACUTE NEEDS AT THIS TIME.
[2021-07-16 10:09] LABS: Adenovirus Not Detected (NOT DETECT); Coronavirus 229E Not Detected (NOT DETECT); Coronavirus HKU1 Not Detected (NOT DETECT); Coronavirus NL63 Not Detected (NOT DETECT); Coronavirus OC43 Not Detected (NOT DETECT); SARS-Cov-2 (COVID-19), BioFire Detected (NOT DETECT)
[2021-07-16 10:12] LABS: Bordetella pertussis Not Detected (NOT DETECT); Chlamydophila pneumoniae Not Detected (NOT DETECT); Human Metapneumovirus Not Detected (NOT DETECT); Human Rhinovirus/Enterovirus Not Detected (NOT DETECT); Influenza A/2009-H1 Not Detected (NOT DETECT); Influenza A/H1 Not Detected (NOT DETECT); Influenza A/H3 Not Detected (NOT DETECT); Influenza B Not Detected (NOT DETECT); Mycoplasma pneumoniae Not Detected (NOT DETECT); Parainfluenza Virus 1 Not Detected (NOT DETECT); Parainfluenza Virus 2 Not Detected (NOT DETECT); Parainfluenza Virus 3 Not Detected (NOT DETECT); Parainfluenza Virus 4 Not Detected (NOT DETECT); Respiratory Syncytial Virus Not Detected (NOT DETECT)
--- NOTE | 2021-07-16 10:41 | NUR ---
PT'S IV INSULIN AND D5 1/2NS DISCONTINUED DUE TO RECIEVING LONG ACTING INSULIN. PT MEDICATED X1 FOR NAUSEA AND STATES SHE HAS ABDOMINAL PAIN WITH EATING. TOLD RESIDENT THAT SHE WAS HAVING HEAD COLD SYMPTOMS SO COVID TEST WAS COMPLETED WITH POSITIVE RESULTS. ISOLATION IN PLACE. BRIM WELT SEWING MACHINE OPERATOR AND DR OVALLE
--- NOTE | 2021-07-16 14:13 | NUR ---
DR PERRY CAME TO CHECK IN ON PT. ATTEMPTED TO GET STATUS CHANGE DUE TO PT BEING OFF INSULIN GTT AND EATING. WISHES TO WAIT FOR CMP RESULT PRIOR TO STATUS CHANGE
--- NOTE | 2021-07-16 15:02 | NUR ---
POTASSIUM COMPLETED. ATTEMPTED TO GET LAB DRAW FROM POWERGLIDE BUT DOES NOT PULL BLOOD. LAB NOTIFIED FOR LAB DRAW NEEDED
[2021-07-16 16:16] LABS: Anion Gap 6 mmol/L (6-16); Blood Urea Nitrogen 10 mg/dL (8-24); Bun/Creatinine Ratio 16.2 (12.0-20.0); CO2, Blood 21 mmol/L (21-32); Calcium, Blood 7.4 mg/dL (8.5-10.1); Chloride, Blood 108 mmol/L (98-108); Creatinine, Blood 0.62 mg/dL (0.40-1.00); Glomerular Filtration Rate >60 (60-); Glucose, Blood 316 mg/dL (70-99); Potassium, Blood 3.9 mmol/L (3.5-5.5); Sodium, Blood 135 mmol/L (136-145)
--- NOTE | 2021-07-16 18:02 | NUR ---
SHIFT SUMMARY: PT IS CURRENTLY MEDICAL STATUS. SHE HAS BEEN OFF INSULIN GTT SINCE THIS AM AND ONLY HAS IV FLUIDS RUNNING THROUGH NEW POWERGLIDE. MEDICATED MULTIPLE TIMES FOR NAUSEA AND OCCASIONALLY COMPLAINS OF ABDOMINAL PAIN WITH FOOD. SC INSULINS ORDERED AND ADMINISTERED. NO ACUTE NEEDS OR CONCERNS.
--- NOTE | 2021-07-17 08:28 | NUR ---
ASSUMED CARE PT. ALERT AND ORIENTED THIS AM. UP TO BEDSIDE TOILET WITH WALKER, NO ASSISTANCE NEEDED. PT. DENIES PAIN THIS AM, HOWEVER REPORTS NAUSEA. INDEPENDENT IN ROOM. ENCOURAGED TO CALL FOR ASSIST WITH LINES AND CORDS. BED IN LOW POSITION, CALL LIGHT IN REACH. VSS THIS AM. PT ATE ENTIRE BREAKFAST TRAY QUICKLY, BG WNL. WATER PROVIDED.
[2021-07-17 09:12] LABS: BASOPHILS ABSOLUTE AUTO 0.02 K/mm3 (0.00-0.23); BASOPHILS PERCENT AUTO 0 % (0-2); EOSINOPHILS PERCENT AUTO 0 % (0-6); Hematocrit 27.1 % (33.0-51.0); Hemoglobin 8.8 g/dL (11.5-16.0); IMMATURE GRAN ABSOLUTE AUTO 0.01 K/mm3 (0.00-0.10); IMMATURE GRAN PERCENT AUTO 0 % (0-1); LYMPHOCYTES ABSOLUTE AUTO 2.12 K/mm3 (0.84-5.20); LYMPHOCYTES PERCENT AUTO 46 % (21-46); MONOCYTES PERCENT AUTO 11 % (4-13); Mean Corpuscular HGB 27.5 pg (26.0-34.0); Mean Corpuscular HGB Conc 32.5 g/dL (31.5-36.5); Mean Corpuscular Volume 85 fL (80-100); Mean Platelet Volume 10.4 fL (9.1-12.4); NEUTROPHILS ABSOLUTE AUTO 1.99 K/mm3 (1.96-9.15); NEUTROPHILS PERCENT AUTO 43 % (41-73); Platelet Count 244 K/mm3 (150-400); RDW Coefficient Variation 14.2 % (11.7-14.2); RDW Standard Deviation 44.5 fL (35.1-46.3); White Blood Cell Count 4.64 K/mm3 (4.00-11.30)
[2021-07-17 09:19] LABS: Anion Gap 5 mmol/L (6-16); Blood Urea Nitrogen 10 mg/dL (8-24); CO2, Blood 26 mmol/L (21-32); Calcium, Blood 7.6 mg/dL (8.5-10.1); Chloride, Blood 110 mmol/L (98-108); Creatinine, Blood 0.63 mg/dL (0.40-1.00); Glomerular Filtration Rate >60 (60-); Glucose, Blood 148 mg/dL (70-99); Potassium, Blood 3.1 mmol/L (3.5-5.5); Sodium, Blood 141 mmol/L (136-145)
--- NOTE | 2021-07-17 12:03 | NUR ---
PT UP TO TOILET IN ROOM WITH WALKER. REPOSITIONING SELF IN BED FOR COMFORT. PT. CONTINUES TO REPORT NAUSEA, DESPITE MEDICATION ADMIN. ABLE TO CONSUME FREQUENT SNACKS WITH OUT DIFFICULTY, NO VOMITING. PT REPORTS HAZY VISION, BG WNL. REPORTS IT STARTED LAST NOC. ASKED PT TO NOTIFY RN IF WORSENING.
[2021-07-17] MEDS ORDERED: PROM25 PO (13:12)
[2021-07-17] MEDS ORDERED: POTA10T PO (13:13)
--- NOTE | 2021-07-17 14:52 | NUR ---
PT DISCHARGED HOME TAKEN VIA WHEEL CHAIR TO MEDICAL TRANSPORT TO HOME. ALL BELONGINGS TAKEN WITH PT. PAOLA UPON DISCHARGE. MEDICATIONS CALLED TO PHARMACY FOR NAUSEA. PT. REPORTS SHE HAS MEDICATIONS AT HOME FOR BG. MANAGEMENT. PT ABLE TO STAND AND TRANSFER TO WHEELCHAIR WITH OUT DIFFICULTY.
== END 2021-07-17 14:45 | disposition home or self-care (01) | DRG 871 ==
LOC: ER 10:06 → ICUW 11:55 → ICUE 13:08
PROVIDERS: Emergency Medicine; Family Medicine; ADMIT Internal Medicine
PROC: 8E0ZXY6 Isolation (ICD-10-PCS; principal; 2021-07-15)
PROC: 3E03329 Introduction of Other Anti-infective into Peripheral Vein, Percutaneous Approach (ICD-10-PCS; 2021-07-15)
DX: A41.1 Sepsis due to other specified staphylococcus (principal); E10.10 Type 1 diabetes mellitus with ketoacidosis without coma; U07.1 COVID-19; E87.1 Hypo-osmolality and hyponatremia; K21.9 Gastro-esophageal reflux disease without esophagitis; F41.9 Anxiety disorder, unspecified; F32.A Depression, unspecified; I10 Essential (primary) hypertension; G40.909 Epilepsy, unspecified, not intractable, without status epilepticus; F15.10 Other stimulant abuse, uncomplicated; F17.210 Nicotine dependence, cigarettes, uncomplicated; E87.6 Hypokalemia; J44.9 Chronic obstructive pulmonary disease, unspecified; Z91.14 Patient's other noncompliance with medication regimen; Z90.49 Acquired absence of other specified parts of digestive tract; Z90.710 Acquired absence of both cervix and uterus; Z98.890 Other specified postprocedural states; Z98.891 History of uterine scar from previous surgery; Z89.512 Acquired absence of left leg below knee; Z88.1 Allergy status to other antibiotic agents; Z88.6 Allergy status to analgesic agent; Z79.4 Long term (current) use of insulin; Z79.899 Other long term (current) drug therapy
CPT/HCPCS: 0202U; 36415; 80048; 80053; 81001; 81025; 82803; 82947; 83690; 83735; 84132; 85014; 85018; 85025; 87040; 96374; 96375; 99285; A9270; C1751; C9113; J1815; J2405; J2550; J2765; J3370; J3475; J3480; J7030; J7042; J7050

== ENCOUNTER 2021-08-30 09:04 | Inpatient (IN) | payer OTHER ==
[~2021-08-30] VITALS: Ht 172.7 cm; Wt 60.1 kg
[~2021-08-30 09:04] MED LIST changes: +POTA10T PO
[2021-08-30 09:43] LABS: Base Excess Venous -26.4 mmol/L; Bicarbonate Venous 8.1 mmol/L (24.0-30.0); PCO2 Venous 16.9 mmHg (38-42); pH Blood Venous 7.03 (7.34-7.37)
[2021-08-30 09:55] LABS: BASOPHILS ABSOLUTE AUTO 0.07 K/mm3 (0.00-0.23); BASOPHILS PERCENT AUTO 0 % (0-2); EOSINOPHILS PERCENT AUTO 0 % (0-6); Hematocrit 48.5 % (33.0-51.0); Hemoglobin 14.2 g/dL (11.5-16.0); IMMATURE GRAN PERCENT AUTO 1 % (0-1); LYMPHOCYTES ABSOLUTE AUTO 1.96 K/mm3 (0.84-5.20); LYMPHOCYTES PERCENT AUTO 11 % (21-46); MONOCYTES ABSOLUTE AUTO 0.46 K/mm3 (0.16-1.47); MONOCYTES PERCENT AUTO 3 % (4-13); Mean Corpuscular HGB 26.4 pg (26.0-34.0); Mean Corpuscular HGB Conc 29.3 g/dL (31.5-36.5); Mean Corpuscular Volume 90 fL (80-100); Mean Platelet Volume 11.1 fL (9.1-12.4); NEUTROPHILS ABSOLUTE AUTO 15.15 K/mm3 (1.96-9.15); NEUTROPHILS PERCENT AUTO 85 % (41-73); Platelet Count 498 K/mm3 (150-400); RDW Coefficient Variation 14.3 % (11.7-14.2); Red Blood Cell Count 5.37 M/mm3 (3.80-5.20); White Blood Cell Count 17.74 K/mm3 (4.00-11.30)
[2021-08-30 12:54] LABS: Alanine Aminotransfer (ALT/SGP 20 U/L (12-78); Albumin, Blood 2.9 g/dL (3.4-5.0); Albumin/Globulin Ratio 0.7 (0.8-1.8); Alk Phos 144 U/L (50-136); Anion Gap 30 mmol/L (6-16); Aspartate Aminotrans (AST/SGOT 10 U/L (12-37); Beta-hydroxybutyrate 132.7 mg/dL (0.2-2.8); Bilirubin, Total 0.4 mg/dL (0.1-1.0); Blood Urea Nitrogen 27 mg/dL (8-24); Bun/Creatinine Ratio 28.1 (12.0-20.0); CO2, Blood 3 mmol/L (21-32); Calcium, Blood 8.5 mg/dL (8.5-10.1); Chloride, Blood 95 mmol/L (98-108); Creatinine, Blood 0.96 mg/dL (0.40-1.00); Globulin, Blood 4.1 g/dL (2.2-4.0); Glomerular Filtration Rate >60 (60-); Glucose, Blood 780 mg/dL (70-99); Potassium, Blood 5.5 mmol/L (3.5-5.5); Sodium, Blood 128 mmol/L (136-145)
[2021-08-30 13:32] LABS: Bun/Creatinine Ratio 27.7 (12.0-20.0); Calcium, Blood 8.5 mg/dL (8.5-10.1); Creatinine, Blood 1.01 mg/dL (0.40-1.00); Potassium, Blood 4.8 mmol/L (3.5-5.5)
[2021-08-30 15:32] LABS: Source, Urine Straight Cath
[2021-08-30 15:43] LABS: Appearance, Urine Hazy (Clear); Bilirubin, Urine Neg (Neg); Blood, Urine 1+ (Neg); Color, Urine Yellow (P-Yellow); Glucose Qualitative, Urine 4+ (Neg); Ketones, Urine 4+ (Neg); Leukocyte Esterase, Urine Neg (Neg); Nitrite, Urine Neg (Neg); Protein, Urine 3+ (Neg); Urobilinogen, Urine NORM (Normal)
[2021-08-30 15:58] LABS: U Amphetamine Screen DETECTED; U Barbituate Screen Not Detected; U Benzodiazapine Screen Not Detected; U Buprenorphine Screen Not Detected; U Cannabinoids Screen DETECTED; U Cocaine Screen Not Detected; U Methadone Screen Not Detected; U Methamphetamine Screen DETECTED; U Opiates Screen Not Detected; U Oxycodone Screen Not Detected; U Phencyclidine Screen Not Detected; U Propoxyphene Screen Not Detected
--- NOTE | 2021-08-30 16:01 | NUR ---
ADMIT FROM ER/ SUMMARY PT ARRIVED FROMER AT 1442 FROM ER, PT ON ROOM AIR, PT'S INSULIN WAS NOT RUNNING UPON ARRIVAL TO ROOM, NEW ORDERS PLACED, MEHTA PLACED AND UA SENT. NO BLOOD CULTURES AT THIS TIME PER . WOUND PHOTOS TAKEN AND PLACED IN CHART. NEURO; PT ORIENTED TO SELF, SLEEPY BUT FOLLOWS COMMANDS ON ALL EXTREMETIES, NO COMPLAINTS OF PAIN, KELLY, N&V, NEW NUMBNESS AND TINGLING AT THIS TIME. CARDIAC; PT IN SINUS TACH, NOTABLE POTASSIUM DROP FROM 1200: 5.5 TO 1300: 4.8, RECHECK SCHEDULED AT 1700. LUNGS; CLEAR THROUGHOUT, TACHYPNEIC, ON RA. SKIN; SCATTERED ABRASIONS. LEFT BKA WITH, RLE TOE AMPUTATIONS- BOTH WITH WOUNDS ON ENDS OF STUMPS, PHOTOS PLACED IN CHART. RT CHEEK ABCESS- PHOTO IN CHART. COCCYX/SACRUM WNL. GI/; C/O DIARRHEA, N&V PRIOR TO ADMIT, NO EPISODES SO FAR WHILE IN ICU. MEHTA PLACED, AND RETURNED 1000ML OF CLEAR, YELLOW URINE. HYPOACTIVE BOWEL SOUNDS.
--- NOTE | 2021-08-30 16:27 | NUR ---
PT STATED TO NOT UPDATE ANYONE OF ADMISSION, INCLUDING IF SHE WERE UNABLE TO SPEAK FOR HERSELF OR DYING. DOUBLE VERIFIED BY SAUSAGE SMOKER AND NORRIS KERNS RN. PAPER DOCUMENT SIGNED BY PATIENT, BOTH RN'S AND PLACED IN PAPER CHART. ADMITTING NOTIFIED TO PLACE PT ON PRIVATE STATUS.
[2021-08-30 16:39] LABS: White Blood Cells, Urine 0-2 /hpf (0-5)
[2021-08-30 16:40] LABS: Bacteria Few /hpf; Granular Casts 0-2 /lpf (0); Red Blood Cells, Urine 0-2 /hpf (0-2); Squamous Epithelial Cells Few /hpf (Few); Yeast/Fungi Urine Few /hpf
[2021-08-30 17:24] LABS: Anion Gap 16 mmol/L (6-16); Blood Urea Nitrogen 24 mg/dL (8-24); Bun/Creatinine Ratio 31.7 (12.0-20.0); CO2, Blood 10 mmol/L (21-32); Calcium, Blood 8.5 mg/dL (8.5-10.1); Chloride, Blood 107 mmol/L (98-108); Creatinine, Blood 0.76 mg/dL (0.40-1.00); Glomerular Filtration Rate >60 (60-); Glucose, Blood 362 mg/dL (70-99); Potassium, Blood 4.3 mmol/L (3.5-5.5); Sodium, Blood 133 mmol/L (136-145)
--- NOTE | 2021-08-30 18:36 | NUR ---
TOTAL INSULIN 27.8 UNITS SO FAR, PUMP CLEARED FOR I/O'S.
--- NOTE | 2021-08-30 20:50 | NUR ---
ASSUMED CARE AT 1900 PT IS LETHARGIC AND SOMNULANT, ONLY ANSWERS QUESTIONS SELECTIVELY, IGNORES RN WHEN ASKED MULTIPLE QUESTIONS; WAS ABLE TO ANSWER THAT SHE WAS IN THE HOSPTIAL, IN THE ICU; WILL ALSO SELECTIVELY FOLLOW DIRECTIONS. AFEBRILE. SPO2 >98% ON RA. HR 100-110. SBP 150'S. PT C/O NAUSEA, ONE TIME DOSE OF PHENERGAN GIVEN AND HELPFUL. MEHTA IN PLACE AND DRAINING TO GRAVITY. SCATTERED ABRASIONS NOTED. INSULIN INFUSING AT 3UNITS/HR; GLUCOSE <250 AT 1900 CBG, LR STOPPED AND D5 1/2NS STARTED AT 300ML/HR. SEE SHIFT ASSESSMENT FOR FULL ASSESSMENT.
[2021-08-30 21:42] LABS: Anion Gap 12 mmol/L (6-16); Blood Urea Nitrogen 18 mg/dL (8-24); Bun/Creatinine Ratio 28.8 (12.0-20.0); CO2, Blood 16 mmol/L (21-32); Chloride, Blood 108 mmol/L (98-108); Creatinine, Blood 0.62 mg/dL (0.40-1.00); Glomerular Filtration Rate >60 (60-); Glucose, Blood 323 mg/dL (70-99); Potassium, Blood 3.9 mmol/L (3.5-5.5); Sodium, Blood 136 mmol/L (136-145)
[2021-08-31 04:23] LABS: BASOPHILS ABSOLUTE AUTO 0.04 K/mm3 (0.00-0.23); BASOPHILS PERCENT AUTO 0 % (0-2); EOSINOPHILS ABSOLUTE AUTO 0.01 K/mm3 (0.00-0.68); EOSINOPHILS PERCENT AUTO 0 % (0-6); Hematocrit 28.1 % (33.0-51.0); Hemoglobin 9.5 g/dL (11.5-16.0); IMMATURE GRAN ABSOLUTE AUTO 0.08 K/mm3 (0.00-0.10); IMMATURE GRAN PERCENT AUTO 1 % (0-1); LYMPHOCYTES ABSOLUTE AUTO 2.29 K/mm3 (0.84-5.20); LYMPHOCYTES PERCENT AUTO 14 % (21-46); MONOCYTES ABSOLUTE AUTO 1.12 K/mm3 (0.16-1.47); MONOCYTES PERCENT AUTO 7 % (4-13); Mean Corpuscular HGB 27.1 pg (26.0-34.0); Mean Corpuscular HGB Conc 33.8 g/dL (31.5-36.5); Mean Platelet Volume 10.2 fL (9.1-12.4); NEUTROPHILS ABSOLUTE AUTO 12.78 K/mm3 (1.96-9.15); NEUTROPHILS PERCENT AUTO 78 % (41-73); Platelet Count 364 K/mm3 (150-400); RDW Coefficient Variation 13.9 % (11.7-14.2); RDW Standard Deviation 39.9 fL (35.1-46.3); Red Blood Cell Count 3.51 M/mm3 (3.80-5.20); White Blood Cell Count 16.32 K/mm3 (4.00-11.30)
[2021-08-31 04:30] LABS: Anion Gap 6 mmol/L (6-16); Blood Urea Nitrogen 12 mg/dL (8-24); Bun/Creatinine Ratio 21.2 (12.0-20.0); CO2, Blood 21 mmol/L (21-32); Calcium, Blood 7.8 mg/dL (8.5-10.1); Chloride, Blood 110 mmol/L (98-108); Creatinine, Blood 0.57 mg/dL (0.40-1.00); Glomerular Filtration Rate >60 (60-); Glucose, Blood 277 mg/dL (70-99); Magnesium, Blood 1.5 mg/dL (1.6-2.4); Sodium, Blood 137 mmol/L (136-145)
[2021-08-31 04:31] LABS: Mean Corpuscular Volume 80 fL (80-100)
--- NOTE | 2021-08-31 04:56 | NUR ---
UPDATE CALLED DR PENALOZA REGARDING POTASSIUM 3.0. NEW ORDERS PROVIDED FOR 40MEQ OF KCL IV X1.
--- NOTE | 2021-08-31 06:23 | NUR ---
END OF SHIFT SUMMARY NO ACUTE CHANGES OVERNIGHT. PT SLEPT MOST OF THE NIGHT BUT WAS MORE INTERACTIVE TOWARDS THE END OF SHIFT WHEN STIMULATED. SPO2 >98% ON RA. AFEBRILE. HR 90-100. SBP 140-150. NAUSEA NOTED ONCE; IS NOW ABLE TO TOLERATE SIPS OF WATER. MEHTA IN PLACE WITH 1050ML URINE OUTPUT. INSULIN INFUSING AT 8UNITS/HR, LAST GLUCOSE 163; D5 1/2NS INFUSING AT 300ML/HR. KCL STARTED. WILL REPORT TO AM RN WHEN AVAILABLE.
--- NOTE | 2021-08-31 07:08 | NUR ---
TOOK OVER CARE OF PT AT 0655, PT BLOOD SUGAR 144, INSULIN DRIP OF 8 STOPPED, D/5 1/2 NS RUNNING AT 300, PT ON RA
--- NOTE | 2021-08-31 07:15 | NUR ---
DR. COLLINS NOTIFIED OF INSULIN DRIP STOPPED DUE TO BLOOD SUGAR BEING 144. DR. COLLINS STATED TO CONTINUE DRIP AND FOLLOW THE PROTOCOL. FRESH FOOD MANAGER LET DR. COLLINS KNOW THERE IS NO PROTOCOL AT THIS FACILITY. SHE THEN STATED TO CONTINUE DRIP AT 6UNITS/HR AND DECREASE D5 1/2 NS AT 200ML/HR.
--- NOTE | 2021-08-31 08:07 | NUR ---
STAT KPHOS ADMINISTERATION HELD BY RN UNTIL COMPLETION OF PTASSIUM CHLORIDE INFUSION COMPLETE.
--- NOTE | 2021-08-31 08:14 | NUR ---
BG 112, PT GIVEN SNACK, TRAY NOW ORDERED
[2021-08-31] MEDS ORDERED: ACET325 PO (12:14)
[2021-08-31] MEDS ORDERED: PANT20 PO (12:15)
[2021-08-31] MEDS ORDERED: VISBIOME 112.51 EACH PO (12:16)
[2021-08-31] MEDS ORDERED: BACITRACIN ZIN1 EAC1 TOP (12:17)
[2021-08-31] MEDS ORDERED: SULTRIDS PO (12:18)
[2021-08-31] MEDS ORDERED: ONDA4ODT MM (12:18)
--- NOTE | 2021-08-31 14:10 | NUR ---
ASSISTED PT WITH WALKER UP TO BEDSIDE TOILET TO VOID. TOLERATED WELL. AWAITING DC TO HOME.
== END 2021-08-31 16:54 | disposition home or self-care (01) | DRG 638 ==
LOC: ER 09:04 → ICUW 12:54 → ICUE 12:54
PROVIDERS: Nurse Practitioner Acute Care; Student in an Organized Health Care Education/Training Program; ADMIT Internal Medicine
DX: E10.10 Type 1 diabetes mellitus with ketoacidosis without coma (principal); E87.1 Hypo-osmolality and hyponatremia; R65.10 Systemic inflammatory response syndrome (SIRS) of non-infectious origin without acute organ dysfunction; D72.829 Elevated white blood cell count, unspecified; F15.10 Other stimulant abuse, uncomplicated; F41.9 Anxiety disorder, unspecified; F32.A Depression, unspecified; I10 Essential (primary) hypertension; G40.909 Epilepsy, unspecified, not intractable, without status epilepticus; J44.9 Chronic obstructive pulmonary disease, unspecified; K21.9 Gastro-esophageal reflux disease without esophagitis; Z89.512 Acquired absence of left leg below knee; Z89.431 Acquired absence of right foot; Z88.1 Allergy status to other antibiotic agents; Z88.5 Allergy status to narcotic agent; Z79.4 Long term (current) use of insulin; Z79.899 Other long term (current) drug therapy; Z86.14 Personal history of Methicillin resistant Staphylococcus aureus infection; Z90.49 Acquired absence of other specified parts of digestive tract; Z90.710 Acquired absence of both cervix and uterus; Z98.890 Other specified postprocedural states
CPT/HCPCS: 36415; 36556; 51702; 71045; 80048; 80053; 81001; 82010; 82803; 82947; 83735; 85025; 93005; 93010; 94760; 96365; 96366; 96375; 99285-25; A9270; C1751; C9113; J1790; J1815; J2405; J2550; J3475; J3480; J7042; J7050; J7060; J7120

== ENCOUNTER 2021-10-27 11:05 | Inpatient (IN) | payer OTHER ==
[~2021-10-27] VITALS: Ht 172.7 cm; Wt 58.3 kg
[~2021-10-27 11:05] MED LIST changes: +BACITRACIN ZIN1 EAC1 TOP
[2021-10-27 13:24] LABS: BASOPHILS ABSOLUTE AUTO 0.15 K/mm3 (0.00-0.23); BASOPHILS PERCENT AUTO 0 % (0-2); EOSINOPHILS ABSOLUTE AUTO 0.01 K/mm3 (0.00-0.68); EOSINOPHILS PERCENT AUTO 0 % (0-6); Hematocrit 40.6 % (33.0-51.0); IMMATURE GRAN ABSOLUTE AUTO 0.61 K/mm3 (0.00-0.10); IMMATURE GRAN PERCENT AUTO 2 % (0-1); LYMPHOCYTES ABSOLUTE AUTO 3.51 K/mm3 (0.84-5.20); LYMPHOCYTES PERCENT AUTO 10 % (21-46); MONOCYTES ABSOLUTE AUTO 2.34 K/mm3 (0.16-1.47); MONOCYTES PERCENT AUTO 6 % (4-13); Mean Corpuscular HGB 26.9 pg (26.0-34.0); Mean Corpuscular Volume 84 fL (80-100); Mean Platelet Volume 10.9 fL (9.1-12.4); NEUTROPHILS ABSOLUTE AUTO 30.41 K/mm3 (1.96-9.15); NEUTROPHILS PERCENT AUTO 82 % (41-73); Platelet Count 491 K/mm3 (150-400); RDW Coefficient Variation 13.9 % (11.7-14.2); RDW Standard Deviation 42.9 fL (35.1-46.3); Red Blood Cell Count 4.84 M/mm3 (3.80-5.20); White Blood Cell Count 37.03 K/mm3 (4.00-11.30)
[2021-10-27 13:36] LABS: Base Excess Venous -18.8 mmol/L; Bicarbonate Venous 11.3 mmol/L (24.0-30.0); PCO2 Venous 33.8 mmHg (38-42); PO2 Venous 46.1 mmHg (38-42)
[2021-10-27 13:37] LABS: pH Blood Venous 7.11 (7.34-7.37)
[2021-10-27 13:56] LABS: Magnesium, Blood 2.1 mg/dL (1.6-2.4)
[2021-10-27 14:13] LABS: Source, Urine Clean Catch
[2021-10-27 14:17] LABS: Appearance, Urine Hazy (Clear); Bilirubin, Urine Neg (Neg); Blood, Urine 1+ (Neg); Glucose Qualitative, Urine 4+ (Neg); Ketones, Urine 4+ (Neg); Leukocyte Esterase, Urine Neg (Neg); Nitrite, Urine Neg (Neg); Protein, Urine 3+ (Neg); Urobilinogen, Urine NORM (Normal)
[2021-10-27 14:19] LABS: Albumin, Blood 3.5 g/dL (3.4-5.0); Albumin/Globulin Ratio 0.8 (0.8-1.8); Beta-hydroxybutyrate 77.8 mg/dL (0.2-2.8); Bilirubin, Total 0.4 mg/dL (0.1-1.0); Bun/Creatinine Ratio 35.8 (12.0-20.0); Calcium, Blood 8.2 mg/dL (8.5-10.1); Creatinine, Blood 1.2 mg/dL (0.40-1.00); Globulin, Blood 4.6 g/dL (2.2-4.0); Potassium, Blood 4.8 mmol/L (3.5-5.5); Total Protein, Blood 8.1 g/dL (6.4-8.2)
[2021-10-27 14:27] LABS: Color, Urine Pale Yellow (P-Yellow)
[2021-10-27 14:30] LABS: Amorphous Light (0-Heavy); Bacteria Mod /hpf; Squamous Epithelial Cells Few /hpf (Few)
[2021-10-27 15:26] LABS: Potassium, Blood 4.9 mmol/L (3.5-5.5)
--- NOTE | 2021-10-27 17:12 | NUR ---
PT ARRIVED FROM ER TO ICU AT 1459, WHALE TRAINER IN ROOM AT 1710 TO DRAW BG. INSULIN DRIP RUNNING AT 5.95UNITS/HR, NS RUNNING AT 250ML/HR, POTASSIUM REPLACMENT INFUSING WELL. PT IS A/0X3, UNSURE OF EXACT DAY OF SEPTEMBER, ABLE TO FOLLOW COMMANDS, EQUAL STRENGTH THROUGHOUT. WOUND PHOTOS TAKEN AND PLACED IN CHART. CO BACK PAIN AND PAIN WHEN URINATING. NO N&V AT THIS TIME. LUNGS CLEAR, BOWEL SOUNDS ACTIVE. CO OF HEADACHE. SCATTERED ABRASION ON EXTREMETIES. PT REPORTS NO FEVERS AT HOME.
[2021-10-27 17:57] LABS: Glucose, Blood 557 mg/dL (70-99)
[2021-10-27 20:38] LABS: Potassium, Blood 3.8 mmol/L (3.5-5.5)
[2021-10-28 00:15] LABS: Glucose, Blood 156 mg/dL (70-99)
[2021-10-28 00:25] LABS: Potassium, Blood 2.6 mmol/L (3.5-5.5)
[2021-10-28 04:17] LABS: Hematocrit 31.9 % (33.0-51.0); Hemoglobin 10.9 g/dL (11.5-16.0); Mean Corpuscular HGB Conc 34.2 g/dL (31.5-36.5); Mean Platelet Volume 10.5 fL (9.1-12.4); Platelet Count 404 K/mm3 (150-400); RDW Coefficient Variation 13.7 % (11.7-14.2); RDW Standard Deviation 39.4 fL (35.1-46.3); Red Blood Cell Count 4.04 M/mm3 (3.80-5.20); White Blood Cell Count 27.28 K/mm3 (4.00-11.30)
[2021-10-28 04:18] LABS: Mean Corpuscular Volume 79 fL (80-100)
[2021-10-28 04:29] LABS: Potassium, Blood 4.2 mmol/L (3.5-5.5)
[2021-10-28 04:49] LABS: Bun/Creatinine Ratio 34.6 (12.0-20.0); Creatinine, Blood 0.69 mg/dL (0.40-1.00); Potassium, Blood 4.2 mmol/L (3.5-5.5)
--- NOTE | 2021-10-28 04:57 | NUR ---
SHIFT SUMMARY: NEURO - AOX3 (PLACE, PERSON, EVENT), FORGETFUL OF THE TIME. PT HAS FLAT AFFECT, WITHDRAWN BUT COOPERATIVE. HAS A LEFT BKA. PT ABLE TO MOVE EXTREMITIES. BEDREST OVERNIGHT. NO COMPLAINTS OF PAIN. DID NOT GET ANY SLEEP OVERNIGHT DUE TO FREQUENT BLOOD SUGAR CHECKS. RESP - ROOM AIR, NO COMPLAINTS OF SOB. CARDIAC - PT IS HYPERTENSIVE WHEN AWAKE AND MOVING AROUND IN BED. AFEBRILE. DOPPLER PULSES ON LOWER EXT, UPPER EXT ARE PALPABLE. NO EDEMA. NORMAL SINUS TO SINUS TACH. GI/ - COMPLAINS OF NAUSEA, BUT NO VOMIT OVERNIGHT. GAVE PRN ZOFRAN TO ALLEVIATE SYMPTOMS. USES THE BEDPAN TO URINATE. NPO DUE TO INSULIN GTT AND DKA PROTOCOL. INSULIN DRIP TITRATED PER PROTOCOL AND ORDER. Q1 CBG CHECKS. INFUSIONS - D5 1/2 NS, INSULIN
--- NOTE | 2021-10-28 07:24 | NUR ---
ASSUMED CARE: PT RESTING QUIETLY IN BED AT TIME OF BEDSIDE REPORT. PT SATTING >95% ON RA, SINUS TAC IN 100'S, AND SBP IN 110'S THIS MORNING. INSULIN GTT RUNING AT 6 AND D5 W/ 1/2 SALINE RUNNING AT 100 ML/HR IN RFA IV. NO ACUTE NEEDS/DISTRESS AT THIS TIME.
--- NOTE | 2021-10-28 08:02 | NUR ---
DR ORDERED TRANSITION TO SC INSULIN. CHECKED PT'S CBG WITH READING OF 65. SPOKE WITH DR OH WHO STATES TO ALLOW PT TO EAT AND RECHECK IN AN HOUR AND THEN START TREATING WITH SC INSULIN. PT NAUSEATED AT THIS TIME. MEDICATED WITH ZOFRAN AND PEPCID PER ORDERS BY OPHTHALMIC TECHNICIAN APPRENTICE.
--- NOTE | 2021-10-28 08:41 | NUR ---
REVIEWED RACK ROOM WORKER'S HEAD TO TOE ASSESSMENT AND AGREE
--- NOTE | 2021-10-28 13:59 | NUR ---
OFFERED PT BED BATH, PT REFUSED TO CONTINUE RESTING IN BED. CALL LIGHT WITHIN REACH.
--- NOTE | 2021-10-28 14:42 | NUR ---
TRANSFER: PT SATTING >95% O2 ON RA, HR IS 100'S SINUS RHYTHM, AND RR EVEN/UNLABORED. REPORT GIVEN TO JOE KINGSLEY ON MEDICAL FLOOR, PT TRANSPORTED TO ROOM 33O VIA BED WITH VISION THERAPIST AND RETAIL DIRECTOR. PT RECEVIED BY RN AND VISION THERAPIST, TRANSFERRED TO BED W/ DIFFICULTY.
--- NOTE | 2021-10-28 18:25 | NUR ---
SHIFT SUMMARY Pt transferred to medical from ICU. Pt AOx4, vital stable. Pt N/V, dry heaving, tearful, asking for heating pad for abd pain. Pt reports constant sharp abdominal pain, raidates to her back. No PRNs for pain, ordered, ordered tylenol PRN. Zofran given PRN, attempted to give tylenol PO for pain. Pt vomited after trying to swallow pills. Pt used bedpan in bed, voided, no BM this shift.1700 CBG 139, no SSI needed. Pt resting in bed, only ate 25% of dinner.
[2021-10-29 05:44] LABS: Hemoglobin 9.9 g/dL (11.5-16.0); Mean Corpuscular HGB 27.3 pg (26.0-34.0); Mean Corpuscular HGB Conc 34.1 g/dL (31.5-36.5); Mean Corpuscular Volume 80 fL (80-100); Mean Platelet Volume 10.5 fL (9.1-12.4); Platelet Count 335 K/mm3 (150-400); RDW Coefficient Variation 14.5 % (11.7-14.2); RDW Standard Deviation 42.5 fL (35.1-46.3); Red Blood Cell Count 3.62 M/mm3 (3.80-5.20); White Blood Cell Count 11.18 K/mm3 (4.00-11.30)
[2021-10-29 05:47] LABS: Bun/Creatinine Ratio 20.3 (12.0-20.0); Calcium, Blood 8.4 mg/dL (8.5-10.1); Creatinine, Blood 0.64 mg/dL (0.40-1.00); Potassium, Blood 3.3 mmol/L (3.5-5.5)
--- NOTE | 2021-10-29 06:13 | NUR ---
SHIFT SUMMARY 41 YR F ADMITTED ON 10/27/21 FOR DKA. FULL CODE. TRANSFERED FROM ICU TO THIS UNIT ON 10/28/21. AT START OF THIS SHIFT PT WAS ACTIVELY VOMITING AND C/O NAUSEA AND STOMACH PAIN. HOSPITALIST WAS CONTACTED AND REGLAN WAS RX'D ZOFRAN DID NOT SEEM TO BE HELPING. PT WAS LATER ABLE TO EAT A SMALL AMOUNT OF FOOD TO INCLUDE SALTINE CRACKERS AND A TURKEY SANDWHICH. SHE WAS ALSO ABLE TO SLEEP FOR SEVERAL HOURS. SHE IS PLEASANT AND COOPERATIVE AND USES CALL LIGHT APPROPRIATELY. DUE TO BKA SHE USES A BED PHILIP AND NAVIGATES IT WELL. BLOOD GLUCOSE LEVEL WAS 135 LAST NIGHT AND GLARGINE WAS HELD DUE TO THE FACT THAT THE PT WAS VOMITING AND HAD NOT EATEN.
--- NOTE | 2021-10-29 16:58 | NUR ---
DAYSHIFT SUMMARY Pt rested in bed all shift, reported several episodes of emesis. RN observed 2 observed of emesis. Zofran & Reglan given PRN N/V, PRNs uneffective. MD assessed pt at bedside, ordered 1 time dose for Toradol & Phenergan, PRNs effective. Pt only reporting mild pain & does not request tylenol. Alternative therapies provided for pain/discomfort. 25-50% of all meals consumed this shift. Vitals stable, afebrile. 4 bags of Potassium IV infused this shift. Midline catheter, patent. Right forearm IV NS locked.
[2021-10-30] MEDS ORDERED: INSULIN LI100 UNIT/6 SC (01:10)
[2021-10-30 05:15] LABS: Bun/Creatinine Ratio 20.6 (12.0-20.0); Calcium, Blood 8.1 mg/dL (8.5-10.1); Creatinine, Blood 0.87 mg/dL (0.40-1.00); Potassium, Blood 3.7 mmol/L (3.5-5.5)
--- NOTE | 2021-10-30 06:32 | NUR ---
SHIFT SUMMARY NOC: PT HAS BEEN NAUSEAS WITH NO EMESIS THROUGHOUT SHIFT. PRN ZOFRAN GIVEN WITH POSITIVE RESULTS. PT ATE 2 WHOLE SANDWHICHES, 3 PACKAGES OF LISA CRACKERS, 2 YOGURTS, STRING CHEESE, AND 6 SOFT DRINKS. PT TEARFUL AT TIMES ABOUT NAUSEA BUT NO VOMITING.
[2021-10-30] MEDS ORDERED: ONDA4ODT MM (10:17)
[2021-10-30] MEDS ORDERED: PROM25 PO (10:17)
--- NOTE | 2021-10-30 11:37 | NUR ---
dISCHARGE- PATIENT WAS DISCHARGED TO DAY AT 11:35AM. HER FRIEND CAME TO PICK HER UP AND TRANSPORT HER HOME. ANY SCRIPTS WERE FAXED TO HER PHARMACY AND SHE IS AWARE. EDUCATION WAS PROVIDED BEFORE DISCHARGE. IV AND POWER GLIDE WERE BOTH REMOVED. PATIENTS MOOD UPON DISCHARGE WAS LABILE, SHE WAS SHORT WITH STAFF AND THEN CRYING BECAUSE "I JUST WANT TO LEAVE". SHE WAS REASSURED THAT SHE WAS LEAVING IN A FEW MINUTES. PATIENT WAS WHEELED OUT OF THE FACITLIY BY STAFF.
== END 2021-10-30 11:37 | disposition home or self-care (01) | DRG 637 ==
LOC: ER 11:05 → ICUW 16:29 → MEDS 10-28 14:26
PROVIDERS: Physician Assistant; Student in an Organized Health Care Education/Training Program; ADMIT Internal Medicine
DX: E10.10 Type 1 diabetes mellitus with ketoacidosis without coma (principal); A41.9 Sepsis, unspecified organism; N17.9 Acute kidney failure, unspecified; E87.1 Hypo-osmolality and hyponatremia; E10.43 Type 1 diabetes mellitus with diabetic autonomic (poly)neuropathy; K31.84 Gastroparesis; R19.7 Diarrhea, unspecified; F32.A Depression, unspecified; F41.9 Anxiety disorder, unspecified; F15.10 Other stimulant abuse, uncomplicated; R06.82 Tachypnea, not elsewhere classified; E10.65 Type 1 diabetes mellitus with hyperglycemia; K21.9 Gastro-esophageal reflux disease without esophagitis; I10 Essential (primary) hypertension; J45.909 Unspecified asthma, uncomplicated; Z86.14 Personal history of Methicillin resistant Staphylococcus aureus infection; G40.909 Epilepsy, unspecified, not intractable, without status epilepticus; E10.621 Type 1 diabetes mellitus with foot ulcer; L97.509 Non-pressure chronic ulcer of other part of unspecified foot with unspecified severity; Z89.512 Acquired absence of left leg below knee; Z98.890 Other specified postprocedural states; Z90.49 Acquired absence of other specified parts of digestive tract; Z90.710 Acquired absence of both cervix and uterus; Z89.421 Acquired absence of other right toe(s); F17.210 Nicotine dependence, cigarettes, uncomplicated; F19.90 Other psychoactive substance use, unspecified, uncomplicated; Z88.1 Allergy status to other antibiotic agents; Z88.5 Allergy status to narcotic agent; Z79.899 Other long term (current) drug therapy; Z79.811 Long term (current) use of aromatase inhibitors; Z79.4 Long term (current) use of insulin
CPT/HCPCS: 36415; 71045; 80048; 80051; 80053; 81001; 82010; 82803; 82947; 83605; 83735; 85025; 85027; 87086; 93005; 93010; 96361; 96365; 96375; 99285-25; A9270; C1751; C9113; J1815; J1885; J2405; J2550; J2765; J3480; J7030; J7042; J7120; P9612

== ENCOUNTER 2021-11-03 11:31 | Inpatient (IN) | payer OTHER ==
[~2021-11-03] VITALS: Ht 172.7 cm; Wt 55.6 kg
[2021-11-03 13:13] LABS: Source, Urine Clean Catch
[2021-11-03 13:24] LABS: Appearance, Urine Hazy (Clear); Bilirubin, Urine Neg (Neg); Blood, Urine 2+ (Neg); Color, Urine Yellow (P-Yellow); Glucose Qualitative, Urine 4+ (Neg); Ketones, Urine 4+ (Neg); Leukocyte Esterase, Urine Neg (Neg); Nitrite, Urine Neg (Neg); Protein, Urine 3+ (Neg); Urobilinogen, Urine NORM (Normal)
[2021-11-03 13:33] LABS: Bacteria Few /hpf; Squamous Epithelial Cells Mod /hpf (Few); Yeast/Fungi Urine Few /hpf
[2021-11-03 13:41] LABS: BASOPHILS ABSOLUTE AUTO 0.11 K/mm3 (0.00-0.23); BASOPHILS PERCENT AUTO 1 % (0-2); EOSINOPHILS ABSOLUTE AUTO 0.51 K/mm3 (0.00-0.68); EOSINOPHILS PERCENT AUTO 3 % (0-6); Hematocrit 34.3 % (33.0-51.0); Hemoglobin 10.3 g/dL (11.5-16.0); IMMATURE GRAN ABSOLUTE AUTO 0.36 K/mm3 (0.00-0.10); IMMATURE GRAN PERCENT AUTO 2 % (0-1); LYMPHOCYTES ABSOLUTE AUTO 0.95 K/mm3 (0.84-5.20); LYMPHOCYTES PERCENT AUTO 6 % (21-46); MONOCYTES ABSOLUTE AUTO 0.76 K/mm3 (0.16-1.47); MONOCYTES PERCENT AUTO 5 % (4-13); Mean Corpuscular HGB 27.6 pg (26.0-34.0); Mean Corpuscular Volume 92 fL (80-100); Mean Platelet Volume 10.7 fL (9.1-12.4); NEUTROPHILS ABSOLUTE AUTO 12.84 K/mm3 (1.96-9.15); NEUTROPHILS PERCENT AUTO 83 % (41-73); Platelet Count 458 K/mm3 (150-400); RDW Coefficient Variation 15.1 % (11.7-14.2); RDW Standard Deviation 50.9 fL (35.1-46.3); Red Blood Cell Count 3.73 M/mm3 (3.80-5.20); White Blood Cell Count 15.53 K/mm3 (4.00-11.30)
[2021-11-03 13:45] LABS: U Amphetamine Screen DETECTED; U Cannabinoids Screen DETECTED; U Methamphetamine Screen DETECTED
[2021-11-03 13:46] LABS: U Barbituate Screen Not Detected; U Benzodiazapine Screen Not Detected; U Buprenorphine Screen Not Detected; U Cocaine Screen Not Detected; U Methadone Screen Not Detected; U Opiates Screen Not Detected; U Oxycodone Screen Not Detected; U Phencyclidine Screen Not Detected; U Propoxyphene Screen Not Detected
[2021-11-03 13:48] LABS: PCO2 Venous 15.2 mmHg (38-42)
[2021-11-03 13:50] LABS: Base Excess Venous -27.6 mmol/L; Bicarbonate Venous 6.6 mmol/L (24.0-30.0); pH Blood Venous 6.99 (7.34-7.37)
[2021-11-03 14:19] LABS: Magnesium, Blood 2.7 mg/dL (1.6-2.4)
[2021-11-03 14:49] LABS: Albumin, Blood 3.1 g/dL (3.4-5.0); Albumin/Globulin Ratio 0.8 (0.8-1.8); Beta-hydroxybutyrate 131.8 mg/dL (0.2-2.8); Bilirubin, Total 0.4 mg/dL (0.1-1.0); Bun/Creatinine Ratio 31.1 (12.0-20.0); Calcium, Blood 8.9 mg/dL (8.5-10.1); Creatinine, Blood 0.87 mg/dL (0.40-1.00); Potassium, Blood 5.8 mmol/L (3.5-5.5); Total Protein, Blood 7.1 g/dL (6.4-8.2)
[2021-11-03 15:54] LABS: Bun/Creatinine Ratio 36.3 (12.0-20.0); Calcium, Blood 8.5 mg/dL (8.5-10.1); Creatinine, Blood 0.8 mg/dL (0.40-1.00); Potassium, Blood 5.1 mmol/L (3.5-5.5)
[2021-11-03 16:10] LABS: PO2 Venous 83 mmHg (38-42)
[2021-11-03 17:35] LABS: Glucose, Blood 415 mg/dL (70-99)
--- NOTE | 2021-11-03 18:40 | NUR ---
SUMMARY PT ADMITTED TO ICU 11 FROM ER. PT IS A/O X4, PLEASANT AND COOPERATIVE. DENIES N/V. CAME FROM ER WITH ICE CHIPS AND TOLERATING THEM. INSULIN GTT RUNNING AT 5.9ML/HR FROM ER. CHANGED INSULIN TO 5 UNITS/HR. LR RUNNING FROM ER. SEE FLOWSHEET FOR TITRATIONS. PT ABLE TO MOVE SELF IN BED AND ASSISTS WITH BEDPAN. POWERGLIDE TO MJ DRAWS BLOOD WITHOUT DIFFICULTY. PT RESTING WITH BLANKETS OVER HEAD NOW, NO SIGN OF DISTRESS.
[2021-11-03 19:40] LABS: Bun/Creatinine Ratio 37.8 (12.0-20.0); Calcium, Blood 8.5 mg/dL (8.5-10.1); Creatinine, Blood 0.72 mg/dL (0.40-1.00); Potassium, Blood 4.5 mmol/L (3.5-5.5)
--- NOTE | 2021-11-03 20:10 | NUR ---
DOCTOR CA NOTIFIED OF CHEM RESULTS AND ORDERS RECEIVED.
--- NOTE | 2021-11-03 20:32 | NUR ---
PATIENT SLEEPING AWAKENS TO SLIGHT STIMULI, WHEN AWAKE SPASTIC MOVEMENTS TO BODY AND SPEECH. PATIENT A&O X3, VERBALIZED FEELING COLD, AND REQUESTING DIET PEPSI. INSULIN DRIP TITRATED TO 2 U/HR, IV FLUIDS CHANGED TO D5 1/2 NS 100/HR.
[2021-11-04 01:40] LABS: Bun/Creatinine Ratio 34.7 (12.0-20.0); Calcium, Blood 8.2 mg/dL (8.5-10.1); Creatinine, Blood 0.61 mg/dL (0.40-1.00); Potassium, Blood 3.8 mmol/L (3.5-5.5)
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
[2021-11-04 07:08] LABS: BASOPHILS ABSOLUTE AUTO 0.02 K/mm3 (0.00-0.23); BASOPHILS PERCENT AUTO 0 % (0-2); EOSINOPHILS ABSOLUTE AUTO 0.02 K/mm3 (0.00-0.68); EOSINOPHILS PERCENT AUTO 0 % (0-6); Hematocrit 27.3 % (33.0-51.0); Hemoglobin 8.9 g/dL (11.5-16.0); IMMATURE GRAN ABSOLUTE AUTO 0.07 K/mm3 (0.00-0.10); IMMATURE GRAN PERCENT AUTO 1 % (0-1); LYMPHOCYTES ABSOLUTE AUTO 1.85 K/mm3 (0.84-5.20); LYMPHOCYTES PERCENT AUTO 18 % (21-46); MONOCYTES ABSOLUTE AUTO 1.29 K/mm3 (0.16-1.47); MONOCYTES PERCENT AUTO 13 % (4-13); Mean Corpuscular HGB 26.9 pg (26.0-34.0); Mean Corpuscular HGB Conc 32.6 g/dL (31.5-36.5); Mean Platelet Volume 10.2 fL (9.1-12.4); NEUTROPHILS ABSOLUTE AUTO 6.86 K/mm3 (1.96-9.15); NEUTROPHILS PERCENT AUTO 68 % (41-73); Platelet Count 384 K/mm3 (150-400); RDW Coefficient Variation 14.5 % (11.7-14.2); RDW Standard Deviation 43.5 fL (35.1-46.3); Red Blood Cell Count 3.31 M/mm3 (3.80-5.20); White Blood Cell Count 10.11 K/mm3 (4.00-11.30)
[2021-11-04 07:14] LABS: Mean Corpuscular Volume 83 fL (80-100)
[2021-11-04 07:23] LABS: Albumin, Blood 2.3 g/dL (3.4-5.0); Albumin/Globulin Ratio 0.8 (0.8-1.8); Bilirubin, Total 0.2 mg/dL (0.1-1.0); Bun/Creatinine Ratio 31.6 (12.0-20.0); Calcium, Blood 8.3 mg/dL (8.5-10.1); Creatinine, Blood 0.57 mg/dL (0.40-1.00); Potassium, Blood 3.1 mmol/L (3.5-5.5); Total Protein, Blood 5.3 g/dL (6.4-8.2)
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
[2021-11-04 12:14] LABS: Bun/Creatinine Ratio 33.6 (12.0-20.0); Calcium, Blood 7.8 mg/dL (8.5-10.1); Creatinine, Blood 0.6 mg/dL (0.40-1.00); Potassium, Blood 3.6 mmol/L (3.5-5.5)
[2021-11-04 12:15] LABS: Phosphorus, Blood 1.5 mg/dL (2.5-4.9)
--- NOTE | 2021-11-04 15:37 | NUR ---
TRANSFER TO MEDICAL FLOOR: REPORT HAS BEEN GIVEN TO VERNON Adame RN TO ASSUME CARE. LEA Manning PCT, HAS PACKED ALL OF THIS PT's BELONGINGS & ASSISTED HER W/ TX TO WC. AFTER TX, PT STS FEELING INCREASES NAUSEA & THIS RN HAS GIVEN REGLAN PER EMAR. CHART, MEDS & ALL BELONGINGS HAVE BEEN TAKEN TO ROOM 361 W/ THE PT AT APPROX 1535.
[2021-11-04 16:21] LABS: Bun/Creatinine Ratio 31.7 (12.0-20.0); Calcium, Blood 7.7 mg/dL (8.5-10.1); Creatinine, Blood 0.69 mg/dL (0.40-1.00); Potassium, Blood 3.9 mmol/L (3.5-5.5)
--- NOTE | 2021-11-04 18:28 | NUR ---
SHIFT SUMMARY PATIENT ALERT WHEN AWAKE. ALTERNATELY SLEEPING OR WATCHING TV IN BED DURING AFTERNOON. TOLERATING ADA DIET, SNACKS, AND LIQUIDS. IV FLUIDS AND K-PHOS RUNNING. BG 315 AT DINNER COVERED WITH 8 UNITS REGULAR INSULIN. STUMP SOCK PROVIDED IN ROOM PER PATIENT REQUEST. WILL REPORT TO ENERGY MANAGER RN.
[2021-11-05 04:51] LABS: BASOPHILS ABSOLUTE AUTO 0.02 K/mm3 (0.00-0.23); BASOPHILS PERCENT AUTO 0 % (0-2); EOSINOPHILS ABSOLUTE AUTO 0.01 K/mm3 (0.00-0.68); EOSINOPHILS PERCENT AUTO 0 % (0-6); Hematocrit 26.7 % (33.0-51.0); Hemoglobin 8.9 g/dL (11.5-16.0); IMMATURE GRAN ABSOLUTE AUTO 0.02 K/mm3 (0.00-0.10); IMMATURE GRAN PERCENT AUTO 0 % (0-1); LYMPHOCYTES ABSOLUTE AUTO 2.44 K/mm3 (0.84-5.20); LYMPHOCYTES PERCENT AUTO 33 % (21-46); MONOCYTES ABSOLUTE AUTO 0.92 K/mm3 (0.16-1.47); MONOCYTES PERCENT AUTO 12 % (4-13); Mean Corpuscular HGB 27.9 pg (26.0-34.0); Mean Corpuscular HGB Conc 33.3 g/dL (31.5-36.5); Mean Corpuscular Volume 84 fL (80-100); NEUTROPHILS ABSOLUTE AUTO 4.03 K/mm3 (1.96-9.15); NEUTROPHILS PERCENT AUTO 54 % (41-73); Platelet Count 340 K/mm3 (150-400); RDW Coefficient Variation 15.1 % (11.7-14.2); Red Blood Cell Count 3.19 M/mm3 (3.80-5.20); White Blood Cell Count 7.44 K/mm3 (4.00-11.30)
[2021-11-05 05:07] LABS: Bun/Creatinine Ratio 35.2 (12.0-20.0); Calcium, Blood 7.7 mg/dL (8.5-10.1); Creatinine, Blood 0.63 mg/dL (0.40-1.00); Potassium, Blood 3.9 mmol/L (3.5-5.5)
--- NOTE | 2021-11-05 05:55 | NUR ---
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 MEDICATED THIS SHIFT FOR PAIN, ANXIETY AND LOW GRADE TEMP. IND TO BSC. CAN BE TEARFUL AT TIMES.
== END 2021-11-05 15:54 | disposition home or self-care (01) | DRG 637 ==
LOC: ER 11:31 → ICUW 16:42 → MEDS 11-04 16:33
PROVIDERS: Emergency Medicine; Internal Medicine; ADMIT Internal Medicine
DX: E10.10 Type 1 diabetes mellitus with ketoacidosis without coma (principal); G92.8 Other toxic encephalopathy; F41.9 Anxiety disorder, unspecified; F32.A Depression, unspecified; I10 Essential (primary) hypertension; G40.909 Epilepsy, unspecified, not intractable, without status epilepticus; J44.9 Chronic obstructive pulmonary disease, unspecified; K21.9 Gastro-esophageal reflux disease without esophagitis; E10.40 Type 1 diabetes mellitus with diabetic neuropathy, unspecified; F15.10 Other stimulant abuse, uncomplicated; F12.10 Cannabis abuse, uncomplicated; Z71.51 Drug abuse counseling and surveillance of drug abuser; Z91.14 Patient's other noncompliance with medication regimen; Z86.14 Personal history of Methicillin resistant Staphylococcus aureus infection; Z90.49 Acquired absence of other specified parts of digestive tract; Z90.710 Acquired absence of both cervix and uterus; Z98.891 History of uterine scar from previous surgery; Z89.512 Acquired absence of left leg below knee; Z98.890 Other specified postprocedural states; Z88.1 Allergy status to other antibiotic agents; Z88.6 Allergy status to analgesic agent; Z79.4 Long term (current) use of insulin; Z79.899 Other long term (current) drug therapy
CPT/HCPCS: 80048; 80053; 81001; 82010; 82803; 82947; 83735; 84100; 85025; 96360; 99285-25; A9270; G0480; J1650; J1815; J2405; J2765; J7030; J7042; J7060; J7120

== ENCOUNTER 2022-03-22 14:01 | Emergency (ER) | payer OTHER ==
[~2022-03-22] VITALS: Ht 172.7 cm; Wt 54.4 kg
[2022-03-22 15:45] LABS: BASOPHILS ABSOLUTE AUTO 0.05 K/mm3 (0.00-0.23); BASOPHILS PERCENT AUTO 0 % (0-2); EOSINOPHILS ABSOLUTE AUTO 0.05 K/mm3 (0.00-0.68); EOSINOPHILS PERCENT AUTO 0 % (0-6); Hematocrit 26.4 % (33.0-51.0); Hemoglobin 7.9 g/dL (11.5-16.0); IMMATURE GRAN ABSOLUTE AUTO 0.05 K/mm3 (0.00-0.10); IMMATURE GRAN PERCENT AUTO 0 % (0-1); LYMPHOCYTES ABSOLUTE AUTO 2.34 K/mm3 (0.84-5.20); LYMPHOCYTES PERCENT AUTO 21 % (21-46); MONOCYTES ABSOLUTE AUTO 0.76 K/mm3 (0.16-1.47); MONOCYTES PERCENT AUTO 7 % (4-13); Mean Corpuscular HGB 25.6 pg (26.0-34.0); Mean Corpuscular HGB Conc 29.9 g/dL (31.5-36.5); Mean Corpuscular Volume 86 fL (80-100); Mean Platelet Volume 9.3 fL (9.1-12.4); NEUTROPHILS ABSOLUTE AUTO 8.01 K/mm3 (1.96-9.15); NEUTROPHILS PERCENT AUTO 71 % (41-73); Platelet Count 568 K/mm3 (150-400); RDW Coefficient Variation 16.3 % (11.7-14.2); RDW Standard Deviation 50.4 fL (35.1-46.3); Red Blood Cell Count 3.08 M/mm3 (3.80-5.20); White Blood Cell Count 11.26 K/mm3 (4.00-11.30)
[2022-03-22 16:09] LABS: Alanine Aminotransfer (ALT/SGP 16 U/L (12-78); Albumin, Blood 1.7 g/dL (3.4-5.0); Albumin/Globulin Ratio 0.4 (0.8-1.8); Alk Phos 217 U/L (50-136); Anion Gap 4 mmol/L (6-16); Aspartate Aminotrans (AST/SGOT 16 U/L (12-37); Bilirubin, Total <0.1 mg/dL (0.1-1.0); Blood Urea Nitrogen 15 mg/dL (8-24); Bun/Creatinine Ratio 27.9 (12.0-20.0); CO2, Blood 29 mmol/L (21-32); Calcium, Blood 8.1 mg/dL (8.5-10.1); Chloride, Blood 104 mmol/L (98-108); Creatinine, Blood 0.54 mg/dL (0.40-1.00); Globulin, Blood 4.7 g/dL (2.2-4.0); Glomerular Filtration Rate 117 (60-); Glucose, Blood 249 mg/dL (70-99); Potassium, Blood 4.1 mmol/L (3.5-5.5); Sodium, Blood 137 mmol/L (136-145); Total Protein, Blood 6.4 g/dL (6.4-8.2)
[2022-03-22 18:51] LABS: Source, Urine Clean Catch
[2022-03-22 19:08] LABS: Appearance, Urine Clear (Clear); Bilirubin, Urine Neg (Neg); Blood, Urine 2+ (Neg); Color, Urine Pale Yellow (P-Yellow); Glucose Qualitative, Urine 4+ (Neg); Ketones, Urine Neg (Neg); Leukocyte Esterase, Urine Neg (Neg); Nitrite, Urine Neg (Neg); Protein, Urine 3+ (Neg); Urobilinogen, Urine NORM (Normal)
[2022-03-22 19:41] LABS: Bacteria Many /hpf
[2022-03-22 19:42] LABS: Base Excess Venous 5.8 mmol/L; Bicarbonate Venous 28.6 mmol/L (24.0-30.0); PCO2 Venous 53.8 mmHg (38-42); pH Blood Venous 7.37 (7.34-7.37)
[2022-03-22 19:42] LABS: Squamous Epithelial Cells Rare /hpf (Few); White Blood Cells, Urine 0-2 /hpf (0-5)
[2022-03-22] MEDS ORDERED: CLIN300 PO (21:36)
== END 2022-03-22 22:43 | disposition home or self-care (01) ==
LOC: ER 14:01
PROVIDERS: Physician Assistant
DX: N61.0 Mastitis without abscess (principal); E10.40 Type 1 diabetes mellitus with diabetic neuropathy, unspecified; K21.9 Gastro-esophageal reflux disease without esophagitis; I10 Essential (primary) hypertension; J44.9 Chronic obstructive pulmonary disease, unspecified; Z88.5 Allergy status to narcotic agent; Z88.8 Allergy status to other drugs, medicaments and biological substances; Z79.899 Other long term (current) drug therapy; Z79.4 Long term (current) use of insulin; Z87.891 Personal history of nicotine dependence
CPT/HCPCS: 36415; 71046; 76642; 80053; 81001; 82010; 82803; 83605; 85025; 87077; 87086; 87186; 93005; 93010; A9270; J1885; J2405; J3010; J7030

== ENCOUNTER 2022-07-07 03:57 | Emergency (ER) | payer OTHER ==
[~2022-07-07] VITALS: Ht 160 cm; Wt 52.2 kg
[~2022-07-07 03:57] MED LIST changes: +PHENERGAN25 MG PR
[2022-07-07 04:24] LABS: BASOPHILS ABSOLUTE AUTO 0.04 K/mm3 (0.00-0.23); BASOPHILS PERCENT AUTO 0 % (0-2); EOSINOPHILS ABSOLUTE AUTO 0.04 K/mm3 (0.00-0.68); EOSINOPHILS PERCENT AUTO 0 % (0-6); Hematocrit 25.1 % (33.0-51.0); Hemoglobin 8.1 g/dL (11.5-16.0); IMMATURE GRAN ABSOLUTE AUTO 0.03 K/mm3 (0.00-0.10); IMMATURE GRAN PERCENT AUTO 0 % (0-1); LYMPHOCYTES ABSOLUTE AUTO 2.23 K/mm3 (0.84-5.20); LYMPHOCYTES PERCENT AUTO 20 % (21-46); MONOCYTES ABSOLUTE AUTO 0.72 K/mm3 (0.16-1.47); MONOCYTES PERCENT AUTO 7 % (4-13); Mean Corpuscular HGB Conc 32.3 g/dL (31.5-36.5); Mean Corpuscular Volume 80 fL (80-100); Mean Platelet Volume 9.5 fL (9.1-12.4); NEUTROPHILS ABSOLUTE AUTO 7.89 K/mm3 (1.96-9.15); NEUTROPHILS PERCENT AUTO 72 % (41-73); Platelet Count 507 K/mm3 (150-400); RDW Coefficient Variation 14.7 % (11.7-14.2); RDW Standard Deviation 43.3 fL (35.1-46.3); Red Blood Cell Count 3.12 M/mm3 (3.80-5.20); White Blood Cell Count 10.95 K/mm3 (4.00-11.30)
[2022-07-07 04:41] LABS: Albumin, Blood 2.5 g/dL (3.4-5.0); Albumin/Globulin Ratio 0.6 (0.8-1.8); Bilirubin, Total 0.1 mg/dL (0.1-1.0); Bun/Creatinine Ratio 13.7 (12.0-20.0); Calcium, Blood 9.1 mg/dL (8.5-10.1); Creatinine, Blood 1.02 mg/dL (0.40-1.00); Potassium, Blood 3.1 mmol/L (3.5-5.5); Total Protein, Blood 6.5 g/dL (6.4-8.2)
== END 2022-07-07 06:12 | disposition home or self-care (01) ==
LOC: ER 03:57
PROVIDERS: Student in an Organized Health Care Education/Training Program
DX: K29.70 Gastritis, unspecified, without bleeding (principal); E10.40 Type 1 diabetes mellitus with diabetic neuropathy, unspecified; I10 Essential (primary) hypertension; J44.9 Chronic obstructive pulmonary disease, unspecified; Z87.891 Personal history of nicotine dependence; Z88.5 Allergy status to narcotic agent; Z88.1 Allergy status to other antibiotic agents; Z79.899 Other long term (current) drug therapy; Z79.4 Long term (current) use of insulin
CPT/HCPCS: 36415; 80053; 82947; 85025; A9270; J1200; J1630; J7030; J7799

== ENCOUNTER 2023-01-03 20:57 | Inpatient (IN) | payer OTHER ==
[~2023-01-03] VITALS: Ht 172.7 cm; Wt 62.4 kg
[2023-01-03 21:41] LABS: BASOPHILS ABSOLUTE AUTO 0.04 K/mm3 (0.00-0.23); BASOPHILS PERCENT AUTO 0 % (0-2); EOSINOPHILS PERCENT AUTO 0 % (0-6); Hematocrit 38.3 % (33.0-51.0); Hemoglobin 12.9 g/dL (11.5-16.0); IMMATURE GRAN ABSOLUTE AUTO 0.04 K/mm3 (0.00-0.10); IMMATURE GRAN PERCENT AUTO 0 % (0-1); LYMPHOCYTES ABSOLUTE AUTO 2.55 K/mm3 (0.84-5.20); LYMPHOCYTES PERCENT AUTO 20 % (21-46); MONOCYTES ABSOLUTE AUTO 0.77 K/mm3 (0.16-1.47); MONOCYTES PERCENT AUTO 6 % (4-13); Mean Corpuscular HGB 28.2 pg (26.0-34.0); Mean Corpuscular HGB Conc 33.7 g/dL (31.5-36.5); Mean Corpuscular Volume 84 fL (80-100); NEUTROPHILS ABSOLUTE AUTO 9.59 K/mm3 (1.96-9.15); NEUTROPHILS PERCENT AUTO 74 % (41-73); Platelet Count 368 K/mm3 (150-400); RDW Coefficient Variation 13.3 % (11.7-14.2); RDW Standard Deviation 40.6 fL (35.1-46.3); Red Blood Cell Count 4.57 M/mm3 (3.80-5.20); White Blood Cell Count 12.99 K/mm3 (4.00-11.30)
[2023-01-03 22:01] LABS: Albumin, Blood 2.6 g/dL (3.4-5.0); Albumin/Globulin Ratio 0.5 (0.8-1.8); Bilirubin, Total 0.4 mg/dL (0.1-1.0); Bun/Creatinine Ratio 17.6 (12.0-20.0); Calcium, Blood 8.7 mg/dL (8.5-10.1); Creatinine, Blood 2.96 mg/dL (0.40-1.00); Globulin, Blood 5.2 g/dL (2.2-4.0); Magnesium, Blood 1.9 mg/dL (1.6-2.4); Potassium, Blood 3.6 mmol/L (3.5-5.5); Total Protein, Blood 7.8 g/dL (6.4-8.2)
[2023-01-04] VITALS (39 sets, daily range): BP systolic 91–140; BP diastolic 55–98
[2023-01-04] MEDS ORDERED: LISI5 PO (03:12)
[2023-01-04] MEDS ORDERED: ATOR80 PO (03:12)
[2023-01-04] MEDS ORDERED: METO100ER PO (03:12)
[2023-01-04] MEDS ORDERED: BUSP5 PO (03:13)
[2023-01-04 05:06] LABS: BASOPHILS ABSOLUTE AUTO 0.04 K/mm3 (0.00-0.23); BASOPHILS PERCENT AUTO 0 % (0-2); EOSINOPHILS ABSOLUTE AUTO 0.02 K/mm3 (0.00-0.68); EOSINOPHILS PERCENT AUTO 0 % (0-6); Hemoglobin 9.4 g/dL (11.5-16.0); IMMATURE GRAN ABSOLUTE AUTO 0.03 K/mm3 (0.00-0.10); IMMATURE GRAN PERCENT AUTO 0 % (0-1); LYMPHOCYTES ABSOLUTE AUTO 2.86 K/mm3 (0.84-5.20); LYMPHOCYTES PERCENT AUTO 27 % (21-46); MONOCYTES ABSOLUTE AUTO 0.79 K/mm3 (0.16-1.47); MONOCYTES PERCENT AUTO 8 % (4-13); Mean Corpuscular HGB 28.1 pg (26.0-34.0); Mean Corpuscular HGB Conc 32.4 g/dL (31.5-36.5); Mean Corpuscular Volume 87 fL (80-100); Mean Platelet Volume 11.2 fL (9.1-12.4); NEUTROPHILS ABSOLUTE AUTO 6.77 K/mm3 (1.96-9.15); NEUTROPHILS PERCENT AUTO 64 % (41-73); Platelet Count 253 K/mm3 (150-400); RDW Coefficient Variation 13.4 % (11.7-14.2); Red Blood Cell Count 3.35 M/mm3 (3.80-5.20); White Blood Cell Count 10.51 K/mm3 (4.00-11.30)
--- NOTE | 2023-01-04 05:27 | NUR ---
ARRIVAL TO ICU/SHIFT SUMMARY PT TRANSPORTED TO ICU 1 WITH THIS RN. PT A/O X 4. FOLLOWS COMMANDS. STATES SHE IS "SLEEPY". 2ND L OF NS INFUSING ON TRANSFER, THEN SWITCHED TO NS 100ML/HR WHEN FINISHED. DENIES CHEST/ABD PAIN. VSS. SBP 90-100'S. SR 70'S. PT STATES SHE HAS OCCASIONAL INCONT OF URINE. EDUCATED ON NEED FOR UA AND INFORMED TO CALL IF SHE NEEDS TO VOID. PT VERBALIZED UNDERSTANDING. PHOTOS IN CHART OF R FOOT AND L KNEE WOUNDS. CBG ON ARRIVAL 325. HOSP CALLED AND ORDERS RECEIVED. HOME MEDS SENT TO PHARMACY. RECEIPT IN CHART. DIFFICULT TO GAIN ACCESS ON PT. MULTIPLE TRIES FOR A PIV IN ED WITH ONE SUCCESSFUL PLACEMENT TO R FOREARM. ATTEMPTED TO START SECOND IV WITHOUT SUCCESS. BP STABLE AND POSSIBLE STATUS CHANGE IN AM. WILL REPORT OFF TO ONCOMING RN.
[2023-01-04 05:45] LABS: Bun/Creatinine Ratio 20.3 (12.0-20.0); Calcium, Blood 7.5 mg/dL (8.5-10.1); Creatinine, Blood 2.66 mg/dL (0.40-1.00); Potassium, Blood 3.6 mmol/L (3.5-5.5)
--- NOTE | 2023-01-04 07:00 | NUR ---
ASSUMPTION OF CARE PT RECEIVING NS 100ML/HR. SHE IS ALERT/ORIENTED AND REQUESTING BREAKFAST. SHE REPORTS FEELING "BETTER BUT STILL TIRED". NSR ON MONITOR WITH RATE IN 60S. SBP 110S, MAP >65. SPO2 >97% ON RA. BED IN LOW POSITION, CALL LIGHT WITHIN REACH. SEE SHIFT ASSESSMENT.
[2023-01-04 08:56] LABS: Source, Urine Clean Catch
[2023-01-04 09:06] LABS: Bilirubin, Urine Neg (Neg); Blood, Urine 2+ (Neg); Glucose Qualitative, Urine 4+ (Neg); Ketones, Urine Neg (Neg); Leukocyte Esterase, Urine 1+ (Neg); Nitrite, Urine Neg (Neg); Protein, Urine 4+ (Neg); Specific Gravity, Urine 1.015 (1.003-1.022); Urobilinogen, Urine NORM (Normal)
[2023-01-04 09:13] LABS: Appearance, Urine Clear (Clear); Color, Urine Yellow (P-Yellow)
[2023-01-04 09:16] LABS: Bacteria Mod /hpf; Red Blood Cells, Urine 0-2 /hpf (0-2); Squamous Epithelial Cells Few /hpf (Few)
--- NOTE | 2023-01-04 12:02 | NUR ---
UPDATE PT REMAINS ALERT AND ORIENTED. SHE HAS ATE BREAKFAST AND LUNCH, DRINKING FLUIDS. PT REPORTED NAUSEA, MEDICATED PER EMAR WITH RELIEF. SPO2 >97% ON RA. NSR ON MONITOR WITH RATE IN 60S-80S. SBP 110S-130S. PT VOIDED WITH BEDPAN TWICE. BED IN LOW POSITION, CALL LIGHT WITHIN REACH. PT TRANSITIONED TO MED TELE STATUS.
--- NOTE | 2023-01-04 15:04 | NUR ---
UPDATE/TRANSFER TO 334 PT REMAINS ALERT AND ORIENTED. SHE CONTINUES TO RECEIVE NS 100ML/HR. PT MINIMAL ASSIST TO BEDSIDE COMMODE WITH WALKER. SHE HAD 1 LIQUID BM WHICH SHE REPORTS SHE HAS BEEN HAVING AT HOME. PT TRANSFERRED TO 334 VIA BED WITH TELE. ALL BELONGINGS INCLUDING CLOTHING, LARGE BROWN PURSE, AND LAPTOP WITH PT. PT STOOD AND PIVOTED TO NEW BED. SUSANNE KINGSLEY AT BEDSIDE.
--- NOTE | 2023-01-04 17:28 | NUR ---
NOTES: PATIENT ARRIVES IN ROOM AT AROUND 1500'S TRANSFERRED FROM ICU RM 1 FOR DX OF HYPOTENSION. PATIENT TRANSFERRED TO BED c SBA. PIV TO RAC INFUSING NS AT 100 MLS/HR. PATIENT A&OX4. APPEARS TO BE WITHDRAWN, PLEASANT AND COOPERATIVE c CARE. MIPELEX DRESSING CHANGED TO L STUMP TMA. PATIENT REPORTS NAUSEOUS BUT NO VOMITING. MEDICATED x1 c PO PHENERGAN c GOOD EFFECT. DENIES CP/PRESSURE, DIZZINESS, AND GENERALIZED PAIN. ON TELE, SR HR IN THE LOW 80'S BPM. BS 268 BEFORE MEALS RECEIVED INSULIN COVERAGE PER EMAR. PATIENT IS CONTINENT OF BLADDER AND USES BSC c SBA. VITAL SIGNS REVIEWED. CALL LIGHT IN REACH. PATIENT EDUCATED ON NON SMOKING POLICY, RISK OF INJURY AND IGNITION SOURCES WHEN O2 IN USE. PATIENT DENIES SMOKING AND VERBALIZED UNDERSTANDING.
[2023-01-05] VITALS (8 sets, daily range): BP systolic 104–183; BP diastolic 38–116
[2023-01-05 06:18] LABS: BASOPHILS ABSOLUTE AUTO 0.04 K/mm3 (0.00-0.23); BASOPHILS PERCENT AUTO 1 % (0-2); EOSINOPHILS ABSOLUTE AUTO 0.09 K/mm3 (0.00-0.68); EOSINOPHILS PERCENT AUTO 1 % (0-6); Hematocrit 27.2 % (33.0-51.0); Hemoglobin 8.9 g/dL (11.5-16.0); IMMATURE GRAN ABSOLUTE AUTO 0.04 K/mm3 (0.00-0.10); IMMATURE GRAN PERCENT AUTO 1 % (0-1); LYMPHOCYTES ABSOLUTE AUTO 2.36 K/mm3 (0.84-5.20); LYMPHOCYTES PERCENT AUTO 32 % (21-46); MONOCYTES ABSOLUTE AUTO 0.52 K/mm3 (0.16-1.47); MONOCYTES PERCENT AUTO 7 % (4-13); Mean Corpuscular HGB 28.1 pg (26.0-34.0); Mean Corpuscular HGB Conc 32.7 g/dL (31.5-36.5); Mean Corpuscular Volume 86 fL (80-100); NEUTROPHILS ABSOLUTE AUTO 4.24 K/mm3 (1.96-9.15); NEUTROPHILS PERCENT AUTO 58 % (41-73); Platelet Count 266 K/mm3 (150-400); RDW Coefficient Variation 13.2 % (11.7-14.2); RDW Standard Deviation 41.2 fL (35.1-46.3); Red Blood Cell Count 3.17 M/mm3 (3.80-5.20); White Blood Cell Count 7.29 K/mm3 (4.00-11.30)
--- NOTE | 2023-01-05 06:36 | NUR ---
SHIFT SUMMARY NO C/O NAUSEA OR PAIN, SLEPT THROUGHOUT THE NIGHT. Q1H FIRE SAFETY CHECKS COMPLETED WITH NO SOURCES OF IGNITION FOUND
[2023-01-05 06:42] LABS: Albumin, Blood 1.8 g/dL (3.4-5.0); Albumin/Globulin Ratio 0.5 (0.8-1.8); Bilirubin, Total 0.2 mg/dL (0.1-1.0); Bun/Creatinine Ratio 24.1 (12.0-20.0); Calcium, Blood 7.5 mg/dL (8.5-10.1); Creatinine, Blood 1.58 mg/dL (0.40-1.00); Globulin, Blood 3.5 g/dL (2.2-4.0); Potassium, Blood 3.4 mmol/L (3.5-5.5); Total Protein, Blood 5.3 g/dL (6.4-8.2)
[2023-01-05 12:40] LABS: Percent Saturation 30.2 % (15.0-50.0)
--- NOTE | 2023-01-05 17:53 | NUR ---
SHIFT SUMMARY A&OX4. SLEPT FOR MOST OF THE SHIFT. FLAT AFFECT. COMPLAINED OF NAUSEA W/OUT VOMITING, BUT DID NOT WANT TO TAKE PHENERGAN. ADEQUATE URINE OUTPUT T/O SHIFT. CBG'S IN THE 200'S T/O SHIFT. ELEVATED BP DURING SHIFT. DENIED CP, HEADACHE, DIZZINESS, OR SOB. SOURCES OF IGNITION ASSESSED DURING HOURLY ROUNDING. PATIENT CURRENTLY SITTING UP IN BED EATING DINNER. CALL LIGHT IS WITHIN REACH.
[2023-01-06 04:06] VITALS: BP 164/99
[2023-01-06 05:09] LABS: BASOPHILS ABSOLUTE AUTO 0.04 K/mm3 (0.00-0.23); BASOPHILS PERCENT AUTO 1 % (0-2); EOSINOPHILS ABSOLUTE AUTO 0.12 K/mm3 (0.00-0.68); EOSINOPHILS PERCENT AUTO 2 % (0-6); Hematocrit 27.4 % (33.0-51.0); IMMATURE GRAN ABSOLUTE AUTO 0.02 K/mm3 (0.00-0.10); IMMATURE GRAN PERCENT AUTO 0 % (0-1); LYMPHOCYTES ABSOLUTE AUTO 2.22 K/mm3 (0.84-5.20); LYMPHOCYTES PERCENT AUTO 30 % (21-46); MONOCYTES ABSOLUTE AUTO 0.49 K/mm3 (0.16-1.47); MONOCYTES PERCENT AUTO 7 % (4-13); Mean Corpuscular HGB 27.9 pg (26.0-34.0); Mean Corpuscular HGB Conc 32.8 g/dL (31.5-36.5); Mean Corpuscular Volume 85 fL (80-100); Mean Platelet Volume 10.9 fL (9.1-12.4); NEUTROPHILS PERCENT AUTO 61 % (41-73); Platelet Count 245 K/mm3 (150-400); RDW Coefficient Variation 13.1 % (11.7-14.2); RDW Standard Deviation 40.2 fL (35.1-46.3); Red Blood Cell Count 3.23 M/mm3 (3.80-5.20); White Blood Cell Count 7.39 K/mm3 (4.00-11.30)
[2023-01-06 05:50] LABS: Magnesium, Blood 1.2 mg/dL (1.6-2.4)
[2023-01-06 05:51] LABS: Albumin, Blood 1.8 g/dL (3.4-5.0); Albumin/Globulin Ratio 0.5 (0.8-1.8); Bilirubin, Total 0.2 mg/dL (0.1-1.0); Bun/Creatinine Ratio 24.5 (12.0-20.0); Calcium, Blood 7.6 mg/dL (8.5-10.1); Creatinine, Blood 1.39 mg/dL (0.40-1.00); Globulin, Blood 3.4 g/dL (2.2-4.0); Potassium, Blood 3.8 mmol/L (3.5-5.5); Total Protein, Blood 5.2 g/dL (6.4-8.2)
--- NOTE | 2023-01-06 06:10 | NUR ---
SHIFT SUMMARY HYDRALAZINE GIVEN BY PREVIOUS RN AT SHIFT CHANGE. BP IMPROVED AFTERWARDS. NO EVENTS OVERNIGHT. Q1H FIRE SAFETY CHECKS COMPLETED NO IGNITION SOURCES FOUND
[2023-01-06 07:23] VITALS: BP 161/99
--- NOTE | 2023-01-06 16:49 | NUR ---
DISCHARGE PT A&OX4, SOFT SPEECH. COMPLAINED OF NAUSEA T/O SHIFT BUT REFUSED ANY NAUSEA MEDS. SOURCES OF IGNITION ASSESSED FOR T/O SHIFT. NO ACUTE CHANGES THIS SHIFT. IV REMOVED. DISCHARGE PACKET DISCUSSED. EDUCATION PROVIDED FOR CARDIAC AND RENAL DIETS. PATIENT DISTRESSED ABOUT FAILY SITUATION. MEDICAL TRANSPORT CAME TO PICK PATIENT UP FOR DISCHARGE.
== END 2023-01-06 14:16 | disposition home or self-care (01) | DRG 683 ==
LOC: ER 20:57 → MEDS 01-04 01:52 → ICUE 01-04 01:52 → MEDS 01-04 14:57 → ENPENDDIS 01-06 11:46 → MEDS 01-06 14:16
PROVIDERS: Family Medicine; Student in an Organized Health Care Education/Training Program; ADMIT Internal Medicine
PROC: 3E033XZ Introduction of Vasopressor into Peripheral Vein, Percutaneous Approach (ICD-10-PCS; principal; 2023-01-04)
DX: N17.9 Acute kidney failure, unspecified (principal); E87.1 Hypo-osmolality and hyponatremia; I95.9 Hypotension, unspecified; E10.40 Type 1 diabetes mellitus with diabetic neuropathy, unspecified; K21.9 Gastro-esophageal reflux disease without esophagitis; F41.8 Other specified anxiety disorders; J44.9 Chronic obstructive pulmonary disease, unspecified; E86.0 Dehydration; E10.65 Type 1 diabetes mellitus with hyperglycemia; K20.90 Esophagitis, unspecified without bleeding; F15.10 Other stimulant abuse, uncomplicated; E87.6 Hypokalemia; E10.621 Type 1 diabetes mellitus with foot ulcer; F12.90 Cannabis use, unspecified, uncomplicated; L97.519 Non-pressure chronic ulcer of other part of right foot with unspecified severity; E86.1 Hypovolemia; N18.31 Chronic kidney disease, stage 3a; E10.22 Type 1 diabetes mellitus with diabetic chronic kidney disease; Z98.891 History of uterine scar from previous surgery; Z87.891 Personal history of nicotine dependence; Z98.890 Other specified postprocedural states; Z90.710 Acquired absence of both cervix and uterus; Z90.49 Acquired absence of other specified parts of digestive tract; Z89.421 Acquired absence of other right toe(s); Z86.69 Personal history of other diseases of the nervous system and sense organs; Z79.899 Other long term (current) drug therapy; Z79.4 Long term (current) use of insulin; Z91.148 Patient's other noncompliance with medication regimen for other reason; Z86.19 Personal history of other infectious and parasitic diseases; Z88.5 Allergy status to narcotic agent; Z88.8 Allergy status to other drugs, medicaments and biological substances
CPT/HCPCS: 36415; 74176; 80048; 80053; 81001; 82728; 82947; 83540; 83550; 83605; 83690; 83735; 84484; 85025; 87040; 87086; 93005; 93010; 96361; 96374; 99285-25; A9270; J0295; J0360; J0744; J1815; J3475; J3480; J7030; J7060

== ENCOUNTER 2023-01-14 07:10 | Inpatient (IN) | payer OTHER ==
[~2023-01-14] VITALS: Ht 167.6 cm; Wt 65.8 kg
[2023-01-14] VITALS (19 sets, daily range): BP systolic 98–155; BP diastolic 69–97
[~2023-01-14 07:10] MED LIST changes: +ATOR80 PO; +BUSP5 PO; +METO100ER PO
[2023-01-14 08:07] LABS: BASOPHILS ABSOLUTE AUTO 0.14 K/mm3 (0.00-0.23); BASOPHILS PERCENT AUTO 1 % (0-2); EOSINOPHILS ABSOLUTE AUTO 0.02 K/mm3 (0.00-0.68); EOSINOPHILS PERCENT AUTO 0 % (0-6); Hematocrit 35.9 % (33.0-51.0); Hemoglobin 11.1 g/dL (11.5-16.0); IMMATURE GRAN ABSOLUTE AUTO 0.17 K/mm3 (0.00-0.10); IMMATURE GRAN PERCENT AUTO 1 % (0-1); LYMPHOCYTES ABSOLUTE AUTO 2.69 K/mm3 (0.84-5.20); LYMPHOCYTES PERCENT AUTO 11 % (21-46); MONOCYTES ABSOLUTE AUTO 0.78 K/mm3 (0.16-1.47); MONOCYTES PERCENT AUTO 3 % (4-13); Mean Corpuscular HGB 28.8 pg (26.0-34.0); Mean Corpuscular HGB Conc 30.9 g/dL (31.5-36.5); Mean Corpuscular Volume 93 fL (80-100); Mean Platelet Volume 11.3 fL (9.1-12.4); NEUTROPHILS ABSOLUTE AUTO 20.46 K/mm3 (1.96-9.15); NEUTROPHILS PERCENT AUTO 84 % (41-73); Platelet Count 415 K/mm3 (150-400); RDW Coefficient Variation 13.5 % (11.7-14.2); RDW Standard Deviation 45.5 fL (35.1-46.3); Red Blood Cell Count 3.86 M/mm3 (3.80-5.20); White Blood Cell Count 24.26 K/mm3 (4.00-11.30)
[2023-01-14 08:22] LABS: Base Excess Venous -30.4 mmol/L; Bicarbonate Venous 5.3 mmol/L (24.0-30.0); PCO2 Venous 16.6 mmHg (38-42); pH Blood Venous 6.87 (7.34-7.37)
[2023-01-14 08:44] LABS: BAND PERCENT MAN 1 % (0-8); BASOPHILS PERCENT MAN 0 % (0-2); EOSINOPHILS PERCENT MAN 0 % (0-6); LYMPHOCYTES ABSOLUTE MAN 2.91 K/mm3 (0.84-5.20); LYMPHOCYTES PERCENT MAN 12 % (21-46); METAMYELOCYTE ABSOLUTE MAN 0.24 K/mm3 (0.00-0.00); METAMYELOCYTE PERCENT MAN 1 % (0-0); MONOCYTES ABSOLUTE MAN 0.48 K/mm3 (0.16-1.47); MONOCYTES PERCENT MAN 2 % (4-13); NEUTROPHILS ABSOLUTE MAN 20.62 K/mm3 (1.96-9.15); SEG NEUTROPHILS PERCENT MAN 84 % (41-73); TOTAL CELLS COUNTED 100
[2023-01-14 08:50] LABS: Alanine Aminotransfer (ALT/SGP 27 U/L (12-78); Albumin, Blood 2.5 g/dL (3.4-5.0); Albumin/Globulin Ratio 0.6 (0.8-1.8); Alk Phos 210 U/L (50-136); Anion Gap 27 mmol/L (6-16); Aspartate Aminotrans (AST/SGOT 21 U/L (12-37); Bilirubin, Total 0.4 mg/dL (0.1-1.0); Blood Urea Nitrogen 46 mg/dL (8-24); Bun/Creatinine Ratio 19.2 (12.0-20.0); CO2, Blood 4 mmol/L (21-32); Calcium, Blood 8.4 mg/dL (8.5-10.1); Chloride, Blood 97 mmol/L (98-108); Creatinine, Blood 2.39 mg/dL (0.40-1.00); Globulin, Blood 4.4 g/dL (2.2-4.0); Glomerular Filtration Rate 25 (60-); Glucose, Blood 734 mg/dL (70-99); Potassium, Blood 6.3 mmol/L (3.5-5.5); Sodium, Blood 128 mmol/L (136-145); Total Protein, Blood 6.9 g/dL (6.4-8.2)
[2023-01-14 09:16] LABS: Beta-hydroxybutyrate >138.0 mg/dL (0.2-2.8)
--- NOTE | 2023-01-14 09:20 | NUR ---
PT ARRIVES TO ICU 2 FROM ER. PT IS A/O X4. ABLE TO MOVE SELF IN BED. PT C/O BEING COLD, WARM BLANKETS PROVIDED. ARRIVES ON INSULIN GTT, TURNED GTT TO 6UNITS/HR. STARTED NS 100ML/HR. HAS L BKA AND R TOES HAVE BEEN REMOVED. HAS SCABS TO R FOOT AND R HEEL, AND ALSO HAS SCABS TO L STUMP. WILL BE MONITORING GLUCOSE AND ELECTROLYTES.
[2023-01-14 10:28] LABS: Potassium, Blood 5.5 mmol/L (3.5-5.5)
[2023-01-14 10:29] LABS: Glucose, Blood 647 mg/dL (70-99)
[2023-01-14 12:04] LABS: Glucose, Blood 562 mg/dL (70-99)
[2023-01-14 13:31] LABS: Potassium, Blood 4.8 mmol/L (3.5-5.5)
--- NOTE | 2023-01-14 15:00 | NUR ---
Brief visit with patient. She is well known to to the palliative team. Pt anxious very nauseated having hiccups. She actually look better than last admission. Review of care for nause and hiccups with nursing may need thorazine. Pt states she has contacted her family and thy know she is in hospital. Spent most of visit soothing pt and advising her will help her with symptoms and a plan of care. Will send chaplian and volunteer to give pt support. pt kps score is 60%. Very martha risk for readmission. Will see if we can get her on chronic program for oupatient care.
--- NOTE | 2023-01-14 18:30 | NUR ---
SUMMARY PT RESTING IN BED. C/O INDIGESTION TODAY. GOT AN ORDER FOR GI COCKTAIL AND PEPCID, WHICH SEEMED TO WORK. PT STILL C/O BEING COLD. TEMP HAS IMPROVED. WANTS MANY WARM BLANKETS. ON INSULIN GTT AT 6 UNITS/HR SINCE ARRIVAL TO ICU. STILL MONITORING GLUCOSE AND ELECTROLYTES.
[2023-01-14 18:45] LABS: Potassium, Blood 4.2 mmol/L (3.5-5.5)
[2023-01-14 18:48] LABS: Bun/Creatinine Ratio 22.6 (12.0-20.0); Calcium, Blood 7.7 mg/dL (8.5-10.1); Creatinine, Blood 2.12 mg/dL (0.40-1.00); Potassium, Blood 4.2 mmol/L (3.5-5.5)
--- NOTE | 2023-01-14 21:19 | NUR ---
ASSUMED CARE PT IS A&O X4; SPO2 >92% ON RA; MAP >65; ST IN 100'S. PT DENIES CP OR SOB AT THIS TIME. PT HAS COMPLAINTS OF STOMACH PAIN, INTERMITTENT NAUSEA, AND ACID REFLUX. PT WAS TREATED W/ GI COCKTAIL PREVIOUS SHIFT; PROTONIX AND ZOFRAN GIVEN; PT IS NOW CURRENTLY RESTING QUIETLY IN BED. HEATING PAD GIVEN TO HELP W/ STOMACH PAIN (PT STATES THAT THIS HELPS AT HOME). INSULINT GTT TITRATING AND D5 1/2 NS INFUSING PER ORDER (SEE FLOWSHEET).
[2023-01-14 21:26] LABS: Bun/Creatinine Ratio 22.9 (12.0-20.0); Calcium, Blood 7.4 mg/dL (8.5-10.1); Creatinine, Blood 2.05 mg/dL (0.40-1.00); Potassium, Blood 4.3 mmol/L (3.5-5.5)
--- NOTE | 2023-01-14 22:28 | NUR ---
UPDATE PT IN RESPIRATORY DISTRESS. ASSISTED PT INTO TRIPOD POSITION/PURSED LIP BREATHING; NO WHEEZING NOTED; CALLED RT AND CA W/ ORDERS FOR BIPAP. 05/06/BACK UP RATE OF 12/40% FIO2. PT STATES THAT SHE FEELS "BETTER" ON THE BIPAP. PT RESTING QUIETLY AT THIS TIME.
[2023-01-15] VITALS (13 sets, daily range): BP systolic 133–163; BP diastolic 74–99
[2023-01-15 03:33] LABS: Bun/Creatinine Ratio 23.1 (12.0-20.0); Calcium, Blood 7.4 mg/dL (8.5-10.1); Creatinine, Blood 1.86 mg/dL (0.40-1.00); Magnesium, Blood 1.7 mg/dL (1.6-2.4); Potassium, Blood 3.9 mmol/L (3.5-5.5)
[2023-01-15 04:20] LABS: Source, Urine Foley catheter
[2023-01-15 04:27] LABS: BASOPHILS ABSOLUTE AUTO 0.02 K/mm3 (0.00-0.23); BASOPHILS PERCENT AUTO 0 % (0-2); EOSINOPHILS ABSOLUTE AUTO 0.09 K/mm3 (0.00-0.68); EOSINOPHILS PERCENT AUTO 1 % (0-6); Hematocrit 24.9 % (33.0-51.0); Hemoglobin 8.5 g/dL (11.5-16.0); IMMATURE GRAN ABSOLUTE AUTO 0.06 K/mm3 (0.00-0.10); IMMATURE GRAN PERCENT AUTO 1 % (0-1); LYMPHOCYTES ABSOLUTE AUTO 1.66 K/mm3 (0.84-5.20); LYMPHOCYTES PERCENT AUTO 14 % (21-46); MONOCYTES ABSOLUTE AUTO 0.66 K/mm3 (0.16-1.47); MONOCYTES PERCENT AUTO 5 % (4-13); Mean Corpuscular HGB 28.3 pg (26.0-34.0); Mean Corpuscular HGB Conc 34.1 g/dL (31.5-36.5); Mean Platelet Volume 10.5 fL (9.1-12.4); NEUTROPHILS ABSOLUTE AUTO 9.69 K/mm3 (1.96-9.15); NEUTROPHILS PERCENT AUTO 80 % (41-73); Platelet Count 288 K/mm3 (150-400); RDW Coefficient Variation 13.2 % (11.7-14.2); RDW Standard Deviation 40.1 fL (35.1-46.3); White Blood Cell Count 12.18 K/mm3 (4.00-11.30)
[2023-01-15 04:29] LABS: Mean Corpuscular Volume 83 fL (80-100)
[2023-01-15 04:42] LABS: Appearance, Urine Hazy (Clear); Bilirubin, Urine Neg (Neg); Blood, Urine 2+ (Neg); Color, Urine Yellow (P-Yellow); Glucose Qualitative, Urine 3+ (Neg); Ketones, Urine 2+ (Neg); Leukocyte Esterase, Urine Neg (Neg); Nitrite, Urine Neg (Neg); Protein, Urine 4+ (Neg); Urobilinogen, Urine NORM (Normal)
[2023-01-15 05:18] LABS: U Amphetamine Screen DETECTED; U Cannabinoids Screen DETECTED; U Methamphetamine Screen DETECTED
[2023-01-15 05:19] LABS: Bacteria Mod /hpf; Red Blood Cells, Urine 0-2 /hpf (0-2); Squamous Epithelial Cells Mod /hpf (Few); U Barbituate Screen Not Detected; U Benzodiazapine Screen Not Detected; U Buprenorphine Screen Not Detected; U Cocaine Screen Not Detected; U Methadone Screen Not Detected; U Opiates Screen Not Detected; U Oxycodone Screen Not Detected; U Phencyclidine Screen Not Detected; U Propoxyphene Screen Not Detected
--- NOTE | 2023-01-15 05:28 | NUR ---
SHIFT SUMMARY PT RESTED QUIETLY FOR MOST OF NIGHT W/ INTERMITTENT EPISODES OF STOMACH PAIN/NAUSEA; TREATED PER EMAR. PT STATES THAT SHE "FEELS A LOT BETTER" THAN SHE DID FROM START OF SHIFT. NO ACUTE EVENTS OVERNIGHT.
--- NOTE | 2023-01-15 07:21 | NUR ---
Assumed care at 0700. Bedside report received from nightshift RN. Pt sleeping in bed at time of report, no acute needs. Insulin infusing at 0.5 units/hr, NS infusing at 100 ml/hr. Will continue to monitor.
[2023-01-15 09:59] LABS: Bun/Creatinine Ratio 21.5 (12.0-20.0); Calcium, Blood 7.6 mg/dL (8.5-10.1); Creatinine, Blood 1.77 mg/dL (0.40-1.00); Potassium, Blood 3.8 mmol/L (3.5-5.5)
[2023-01-15 12:56] LABS: Bun/Creatinine Ratio 19.4 (12.0-20.0); Calcium, Blood 7.9 mg/dL (8.5-10.1); Creatinine, Blood 1.7 mg/dL (0.40-1.00)
--- NOTE | 2023-01-15 18:09 | NUR ---
TRANSFERRED PT TO MEDICAL FLOOR AT APPROXIMATELY 1730. REPORT GIVEN TO NATALIO Walters RN. PT VITALS STABLE AT TIME OF TRANSFER. ALL PT BELONGINGS SENT WITH PT TO NEW ROOM. SEE CHART FOR FURTHER DETAILS.
--- NOTE | 2023-01-15 18:50 | NUR ---
PT ARRIVED TO ROOM 354 @1730 VIA GURNEY. LBKA AND RIGHT TOES AMPUTATION. PT CAN INDEPENDENTLY TRANSFER TO [facility]. PT CLAIMS SHE IS WEAK AND DOES NOT FEEL WELL. BLOOD GLUCOSE TAKEN PRIOR TO TRANSFER. PT SLEEPING COMFORTABLY IN BED. CALL LIGHT IN REACH. BED IN LOWEST POSITION.
[2023-01-16 05:22] LABS: BASOPHILS ABSOLUTE AUTO 0.02 K/mm3 (0.00-0.23); BASOPHILS PERCENT AUTO 0 % (0-2); EOSINOPHILS ABSOLUTE AUTO 0.05 K/mm3 (0.00-0.68); EOSINOPHILS PERCENT AUTO 1 % (0-6); Hematocrit 21.2 % (33.0-51.0); IMMATURE GRAN ABSOLUTE AUTO 0.01 K/mm3 (0.00-0.10); IMMATURE GRAN PERCENT AUTO 0 % (0-1); LYMPHOCYTES PERCENT AUTO 36 % (21-46); MONOCYTES ABSOLUTE AUTO 0.33 K/mm3 (0.16-1.47); MONOCYTES PERCENT AUTO 6 % (4-13); Mean Corpuscular HGB 28.5 pg (26.0-34.0); Mean Corpuscular Volume 86 fL (80-100); Mean Platelet Volume 10.9 fL (9.1-12.4); NEUTROPHILS PERCENT AUTO 57 % (41-73); Platelet Count 223 K/mm3 (150-400); RDW Standard Deviation 43.4 fL (35.1-46.3); Red Blood Cell Count 2.46 M/mm3 (3.80-5.20); White Blood Cell Count 5.31 K/mm3 (4.00-11.30)
[2023-01-16 05:51] LABS: Bun/Creatinine Ratio 17.4 (12.0-20.0); Calcium, Blood 7.7 mg/dL (8.5-10.1); Creatinine, Blood 1.67 mg/dL (0.40-1.00); Potassium, Blood 3.9 mmol/L (3.5-5.5)
[2023-01-16 07:23] VITALS: BP 150/98
--- NOTE | 2023-01-16 07:48 | NUR ---
SHIFT SUMMARY PATIENT ALERT, PLEASANT AFFECT. C/O PAIN TO STOMACH, DECLINES TO ELABORATE, MEDICATED PER eMAR, TOLERATED WELL. ASLEEP MOST OF SHIFT WITH REQUESTS FOR PAIN MEDICATION AT HS AND NEAR END OF SHIFT. NO ACUTE CHANGES NOTED OVERNIGHT. BED LOW, CALL LIGHT WITHIN REACH.
[2023-01-16 13:53] LABS: Hematocrit 23.2 % (33.0-51.0); Hemoglobin 7.5 g/dL (11.5-16.0)
[2023-01-16 14:51] VITALS: BP 150/98
--- NOTE | 2023-01-16 20:01 | NUR ---
PT PLEASANT TODAY. SHE HAS HAD ABD PAIN MOST OF DAY. DID MED WITH FENTANYL REGULARLY. DROP IN CBG THIS ROQUE. 47, THEN AFTER 2 CUPS APPLEJUICE, DOWN TO 40. GAVE HONEY, BACK UP TO 80. NITE SHIFT CONTINUE TO MONITOR. DID EAT DINNER, HELD ALL INSULIN FOR DINNER FOR LOW CBG. PT REMAINED A/O THROUGH OUT. DR SWAN PLANS FOR SCOPE THURSDAY. STATES NPO MIDNITE THURSDAY NIGHT. DID PLACE HAT IN COMMODE TO GET GUIAC THIS AM. NONE PRODUCED TODAY. NO OTHER CONCERNS NOTED. BED IN LOW POSITION, CALL LITE IN REACH, CALLS APPROP
[2023-01-16 20:32] VITALS: BP 179/119
[2023-01-17 02:09] VITALS: BP 174/115
--- NOTE | 2023-01-17 04:43 | NUR ---
SHIFT SUMMARY PATIENT A/Ox4, PLEASANT AFFECT. NOTED TO BE TEARFULL AT HS, STATES HAS A LOT GOING ON, BOYFRIEND LEFT HER. C/O STOMACH PAIN, MEDICATED PER eMAR, TOLERATED WELL. PATIENT AWARE OF ORDER FOR STOOL SAMPLE, NO RESULTS THIS SHIFT. NEAR END OF SHIFT, PATIENT AWOKE, APPEARED CALM, IN NO ACUTE DISTRESS. WITHOUT C/O PAIN AT THIS TIME. BED LOW, CALL LIGHT WITHIN REACH.
[2023-01-17 04:45] VITALS: BP 163/115
[2023-01-17 07:43] VITALS: BP 182/111
[2023-01-17 09:13] VITALS: BP 171/106
[2023-01-17 10:01] LABS: BASOPHILS ABSOLUTE AUTO 0.03 K/mm3 (0.00-0.23); BASOPHILS PERCENT AUTO 1 % (0-2); EOSINOPHILS ABSOLUTE AUTO 0.09 K/mm3 (0.00-0.68); EOSINOPHILS PERCENT AUTO 2 % (0-6); Hematocrit 24.1 % (33.0-51.0); Hemoglobin 7.9 g/dL (11.5-16.0); IMMATURE GRAN ABSOLUTE AUTO 0.02 K/mm3 (0.00-0.10); IMMATURE GRAN PERCENT AUTO 0 % (0-1); LYMPHOCYTES ABSOLUTE AUTO 1.86 K/mm3 (0.84-5.20); LYMPHOCYTES PERCENT AUTO 33 % (21-46); MONOCYTES ABSOLUTE AUTO 0.37 K/mm3 (0.16-1.47); MONOCYTES PERCENT AUTO 7 % (4-13); Mean Corpuscular HGB 28.3 pg (26.0-34.0); Mean Corpuscular HGB Conc 32.8 g/dL (31.5-36.5); Mean Corpuscular Volume 86 fL (80-100); Mean Platelet Volume 11.4 fL (9.1-12.4); NEUTROPHILS ABSOLUTE AUTO 3.36 K/mm3 (1.96-9.15); NEUTROPHILS PERCENT AUTO 59 % (41-73); Platelet Count 241 K/mm3 (150-400); RDW Coefficient Variation 14.2 % (11.7-14.2); Red Blood Cell Count 2.79 M/mm3 (3.80-5.20); White Blood Cell Count 5.73 K/mm3 (4.00-11.30)
[2023-01-17 10:20] LABS: Calcium, Blood 7.8 mg/dL (8.5-10.1); Creatinine, Blood 1.53 mg/dL (0.40-1.00); Potassium, Blood 4.2 mmol/L (3.5-5.5)
[2023-01-17 15:39] VITALS: BP 165/100
--- NOTE | 2023-01-17 16:50 | NUR ---
SHIFT SUMMARY: PATIENT A&OX4. APPEARS TO BE WITHDRAWN AND DEPRESSED. PATIENT WAS VERY EMOTIONAL AT BEGINNING OF SHIFT AND HAD EPISODE OF CRYING. PER PATIENT "I LIVE c MY BOYFRIEND AND HE JUST BROKE UP c ME COUPLE DAYS AGO, AND NOW I HAVE NO PLACE TO LIVE WHEN I DISCHARGE FROM THE HOSPITAL." PATIENT ALSO STATED, "IT SEEMS TO ME EVERY RELATIONSHIP I HAVE INCLUDING MY FAMILY OWN FAMILY WILL NOT ABLE TO HANDLE MY MEDICAL CONDITION." PATIENT CONTINUES TO REPORTS STOMACH PAIN 7-01/08, MEDICATED X1 c IV FENTANYL, X1 PO TRMADOL AND X1 MAALOX THIS SHIFT c GOOD EFFECT. PATIENT ON ADA DIET c BS ACHS, BS BEFORE BREAKFAST WAS 342, BEFORE LUNCH WAS 66 AND BEFORE DINNER WAS 140. EATING AND DRINKING WELL. DENIES N/V, CP/PRESSURE, SOB. PATIENT IS CONTINENCE OF BOWELS AND BLADDER, USES BSC INDEPENDENTLY. NO BM THIS SHIFT, STOOL SAMPLE IS PENDING. PATIENT WILL BE NPO AT HI AND PLAN TO HAVE EGD DONE TOMORROW AM 01/18/23. PATIENT RECEIVED SCHEDULED MEDS PER EMAR. VITAL SIGNS REVIEWED. CALL LIGHT IN REACH. PATIENT EDUCATED ON NON SMOKING POLICY, RISK OF INJURY AND IGNITION SOURCES WHEN O2 IN USE. PATIENT DENIES SMOKING AND VERBALIZED UNDERSTANDING.
[2023-01-17 19:16] VITALS: BP 181/119
[2023-01-18] VITALS (19 sets, daily range): BP systolic 105–170; BP diastolic 70–115
--- NOTE | 2023-01-18 05:19 | NUR ---
SHIFT SUMMARY- PT WAS AANXIOUS AND PAINFUL AT THE START OF THE SHIFT, SHE CALMED AND HER PAIN APPEARED TO IMPROVE AFTER TRAMADOL AND PO HYDROXIZINE. PT HAS BEEN SLEEPING ON ALL ROUNDS SINCE 1999. PT IN BED, CALL LIGHT IN REACH, NO S&S OF DITRESS NOTED.
--- NOTE | 2023-01-18 08:21 | NUR ---
JOLENE FROM [facility] CALLED, PLANS TRANSPORT PT AT 0845. GAVE PROTINIX IV. HELD ALL MEDS AND INSULIN. CGB 145.
--- NOTE | 2023-01-18 09:45 | NUR ---
01/18/23 09Janessa Gonzalez HISTORY, CHART, MEDICATIONS AND ALLERGIES REVIEWED BEFORE START OF PROCEDURE. PATIENT CONFIRMS NPO STATUS AND AGREES WITH SCHEDULED PROCEDURE. 3-LEAD EKG REVIEWED WITH PHYSICIAN PRIOR TO START OF PROCEDURE. MONITOR INTACT WITH CONTINUOUS PULSE OXIMETRY,CAPNOGRAPHY, 3-LEAD EKG, INTERMITTENT BP. SUPPLEMENTAL O2 TO BE TITRATED THROUGHOUT PROCEDURE TO MAINTAIN O2 SATURATION ABOVE 90%. PATIENT DETERMINED TO BE ASA APPROPRIATE FOR PROPOFOL SEDATION PRIOR TO START OF PROCEDURE BY .
[2023-01-18 12:54] LABS: BASOPHILS ABSOLUTE AUTO 0.02 K/mm3 (0.00-0.23); BASOPHILS PERCENT AUTO 1 % (0-2); EOSINOPHILS ABSOLUTE AUTO 0.08 K/mm3 (0.00-0.68); EOSINOPHILS PERCENT AUTO 2 % (0-6); Hematocrit 22.5 % (33.0-51.0); Hemoglobin 7.3 g/dL (11.5-16.0); IMMATURE GRAN ABSOLUTE AUTO 0.01 K/mm3 (0.00-0.10); IMMATURE GRAN PERCENT AUTO 0 % (0-1); LYMPHOCYTES ABSOLUTE AUTO 1.76 K/mm3 (0.84-5.20); LYMPHOCYTES PERCENT AUTO 40 % (21-46); MONOCYTES ABSOLUTE AUTO 0.34 K/mm3 (0.16-1.47); MONOCYTES PERCENT AUTO 8 % (4-13); Mean Corpuscular HGB 28.4 pg (26.0-34.0); Mean Corpuscular HGB Conc 32.4 g/dL (31.5-36.5); Mean Corpuscular Volume 88 fL (80-100); Mean Platelet Volume 11.1 fL (9.1-12.4); NEUTROPHILS ABSOLUTE AUTO 2.22 K/mm3 (1.96-9.15); NEUTROPHILS PERCENT AUTO 50 % (41-73); Platelet Count 222 K/mm3 (150-400); RDW Coefficient Variation 14.1 % (11.7-14.2); RDW Standard Deviation 44.5 fL (35.1-46.3); Red Blood Cell Count 2.57 M/mm3 (3.80-5.20); White Blood Cell Count 4.43 K/mm3 (4.00-11.30)
[2023-01-18] MEDS ORDERED: METO5A PO (17:15)
[2023-01-18] MEDS ORDERED: BISA5EC PO (17:16)
--- NOTE | 2023-01-18 19:17 | NUR ---
1744 DISCHARGE REVIEWED WITH PT. SHE VERBALIZED UNDERSTANDING MEDS AND INST. I CALLED [facility]. VERIFIED ALL MEDS ORDERED THRU [facility]. PT TO CATTLE SORTER MEDS. IV PULLED INTACT. NO TELE. PEND TRANSPORT
--- NOTE | 2023-01-18 19:17 | NUR ---
PT WHEELED TO DOOR BY NEYDA DAI. 1915
== END 2023-01-18 19:17 | disposition home or self-care (01) | DRG 637 ==
LOC: ER 07:10 → MEDS 08:41 → ICUE 08:41 → MEDS 01-15 17:32
PROVIDERS: Emergency Medicine; Internal Medicine; ADMIT Internal Medicine
PROC: 0T9B70Z Drainage of Bladder with Drainage Device, Via Natural or Artificial Opening (ICD-10-PCS; principal; 2023-01-15)
PROC: 0DB78ZX Excision of Stomach, Pylorus, Via Natural or Artificial Opening Endoscopic, Diagnostic (ICD-10-PCS; 2023-01-18)
DX: E10.10 Type 1 diabetes mellitus with ketoacidosis without coma (principal); K25.4 Chronic or unspecified gastric ulcer with hemorrhage; E10.40 Type 1 diabetes mellitus with diabetic neuropathy, unspecified; K21.9 Gastro-esophageal reflux disease without esophagitis; N18.31 Chronic kidney disease, stage 3a; E10.22 Type 1 diabetes mellitus with diabetic chronic kidney disease; I12.9 Hypertensive chronic kidney disease with stage 1 through stage 4 chronic kidney disease, or unspecified chronic kidney disease; D63.1 Anemia in chronic kidney disease; K31.89 Other diseases of stomach and duodenum; E87.5 Hyperkalemia; E10.43 Type 1 diabetes mellitus with diabetic autonomic (poly)neuropathy; F15.11 Other stimulant abuse, in remission; K31.84 Gastroparesis; K44.9 Diaphragmatic hernia without obstruction or gangrene; T18.2XXA Foreign body in stomach, initial encounter; Z87.891 Personal history of nicotine dependence; Z90.710 Acquired absence of both cervix and uterus; Z89.512 Acquired absence of left leg below knee; Z89.431 Acquired absence of right foot; Z90.49 Acquired absence of other specified parts of digestive tract; Z98.890 Other specified postprocedural states; Z79.4 Long term (current) use of insulin; Z79.899 Other long term (current) drug therapy; Z88.5 Allergy status to narcotic agent; Z88.8 Allergy status to other drugs, medicaments and biological substances; Z87.11 Personal history of peptic ulcer disease
CPT/HCPCS: 36415; 80048; 80051; 80053; 81001; 82010; 82800; 82803; 82947; 83735; 85014; 85018; 85025; 88305; 88342; 96361; 96374; 99285-25; A9270; C1751; C9113; J1650; J1815; J2250; J2405; J2704; J3010; J7030; J7042; J7120

== ENCOUNTER 2023-02-12 21:46 | Emergency (ER) | payer OTHER ==
[~2023-02-12] VITALS: Ht 172.7 cm; Wt 59.0 kg
[~2023-02-12 21:46] MED LIST changes: +BISA5EC PO; -METO100ER PO; +METO50ER PO
[2023-02-12 22:37] LABS: BASOPHILS ABSOLUTE AUTO 0.06 K/mm3 (0.00-0.23); BASOPHILS PERCENT AUTO 1 % (0-2); EOSINOPHILS PERCENT AUTO 0 % (0-6); Hematocrit 30.6 % (33.0-51.0); Hemoglobin 10.2 g/dL (11.5-16.0); IMMATURE GRAN ABSOLUTE AUTO 0.06 K/mm3 (0.00-0.10); IMMATURE GRAN PERCENT AUTO 1 % (0-1); LYMPHOCYTES ABSOLUTE AUTO 1.41 K/mm3 (0.84-5.20); LYMPHOCYTES PERCENT AUTO 11 % (21-46); MONOCYTES ABSOLUTE AUTO 0.51 K/mm3 (0.16-1.47); MONOCYTES PERCENT AUTO 4 % (4-13); Mean Corpuscular HGB 29.7 pg (26.0-34.0); Mean Corpuscular HGB Conc 33.3 g/dL (31.5-36.5); Mean Corpuscular Volume 89 fL (80-100); Mean Platelet Volume 10.4 fL (9.1-12.4); NEUTROPHILS ABSOLUTE AUTO 11.25 K/mm3 (1.96-9.15); NEUTROPHILS PERCENT AUTO 85 % (41-73); Platelet Count 313 K/mm3 (150-400); RDW Coefficient Variation 13.9 % (11.7-14.2); RDW Standard Deviation 45.6 fL (35.1-46.3); Red Blood Cell Count 3.43 M/mm3 (3.80-5.20); White Blood Cell Count 13.29 K/mm3 (4.00-11.30)
[2023-02-12 22:55] LABS: Albumin, Blood 2.5 g/dL (3.4-5.0); Albumin/Globulin Ratio 0.6 (0.8-1.8); Bilirubin, Total 0.4 mg/dL (0.1-1.0); Bun/Creatinine Ratio 14.5 (12.0-20.0); Calcium, Blood 9.2 mg/dL (8.5-10.1); Creatinine, Blood 1.24 mg/dL (0.40-1.00); Globulin, Blood 4.2 g/dL (2.2-4.0); Potassium, Blood 3.6 mmol/L (3.5-5.5); Total Protein, Blood 6.7 g/dL (6.4-8.2)
[2023-02-13 04:51] LABS: Source, Urine Clean Catch
[2023-02-13 05:06] LABS: Bilirubin, Urine Neg (Neg); Blood, Urine 3+ (Neg); Glucose Qualitative, Urine 3+ (Neg); Ketones, Urine Neg (Neg); Leukocyte Esterase, Urine Neg (Neg); Nitrite, Urine Neg (Neg); Protein, Urine 4+ (Neg); Specific Gravity, Urine 1.015 (1.003-1.022); Urobilinogen, Urine NORM (Normal)
[2023-02-13 05:20] LABS: Appearance, Urine Clear (Clear); Color, Urine Yellow (P-Yellow)
[2023-02-13 05:22] LABS: Bacteria Few /hpf; Squamous Epithelial Cells Few /hpf (Few); White Blood Cells, Urine 0-2 /hpf (0-5)
[2023-02-13] MEDS ORDERED: ONDA4ODT MM (05:39)
[2023-02-13 07:40] VITALS: BP 150/89
[2023-02-25] MEDS ORDERED: Acetaminophen325 M1 PO (17:18)
[2023-02-25] MEDS ORDERED: NOVOLOG FL100 UNIT/3 SC (17:18)
[2023-02-25] MEDS ORDERED: FAMO20 PO (17:19)
== END 2023-02-13 07:44 | disposition home or self-care (01) ==
LOC: ER 21:46
PROVIDERS: Physician Assistant
DX: K20.90 Esophagitis, unspecified without bleeding (principal); D72.829 Elevated white blood cell count, unspecified; R10.11 Right upper quadrant pain; R11.2 Nausea with vomiting, unspecified; E10.40 Type 1 diabetes mellitus with diabetic neuropathy, unspecified; G40.909 Epilepsy, unspecified, not intractable, without status epilepticus; I10 Essential (primary) hypertension; J44.9 Chronic obstructive pulmonary disease, unspecified; Z88.5 Allergy status to narcotic agent; Z88.1 Allergy status to other antibiotic agents; Z79.4 Long term (current) use of insulin; Z79.899 Other long term (current) drug therapy; Z87.891 Personal history of nicotine dependence
CPT/HCPCS: 74177; 80053; 81001; 81025; 82947; 83690; 85025; 93005; 93010; 96361; 96374; 96375; 99284-25; A9270; J1790; J3010; J7030; Q9967

== ENCOUNTER 2023-03-03 09:12 | Inpatient (IN) | payer OTHER ==
[~2023-03-03] VITALS: Ht 172.7 cm; Wt 68.6 kg
[2023-03-03] VITALS (42 sets, daily range): BP systolic 103–202; BP diastolic 79–127
[~2023-03-03 09:12] MED LIST changes: +FAMO20 PO; +NOVOLOG FL100 UNIT/3
[2023-03-03 10:50] LABS: Bicarbonate Venous 16.9 mmol/L (24.0-30.0); PCO2 Venous 37 mmHg (38-42); pH Blood Venous 7.27 (7.34-7.37)
[2023-03-03 10:53] LABS: Source, Urine Clean Catch
[2023-03-03 10:54] LABS: BASOPHILS ABSOLUTE AUTO 0.06 K/mm3 (0.00-0.23); BASOPHILS PERCENT AUTO 1 % (0-2); EOSINOPHILS ABSOLUTE AUTO 0.02 K/mm3 (0.00-0.68); EOSINOPHILS PERCENT AUTO 0 % (0-6); Hematocrit 25.7 % (33.0-51.0); Hemoglobin 8.4 g/dL (11.5-16.0); IMMATURE GRAN ABSOLUTE AUTO 0.03 K/mm3 (0.00-0.10); IMMATURE GRAN PERCENT AUTO 0 % (0-1); LYMPHOCYTES ABSOLUTE AUTO 1.69 K/mm3 (0.84-5.20); LYMPHOCYTES PERCENT AUTO 18 % (21-46); MONOCYTES ABSOLUTE AUTO 0.79 K/mm3 (0.16-1.47); MONOCYTES PERCENT AUTO 8 % (4-13); Mean Corpuscular HGB 29.7 pg (26.0-34.0); Mean Corpuscular HGB Conc 32.7 g/dL (31.5-36.5); Mean Corpuscular Volume 91 fL (80-100); Mean Platelet Volume 10.6 fL (9.1-12.4); NEUTROPHILS ABSOLUTE AUTO 6.84 K/mm3 (1.96-9.15); NEUTROPHILS PERCENT AUTO 73 % (41-73); Platelet Count 441 K/mm3 (150-400); RDW Coefficient Variation 13.7 % (11.7-14.2); RDW Standard Deviation 45.5 fL (35.1-46.3); Red Blood Cell Count 2.83 M/mm3 (3.80-5.20); White Blood Cell Count 9.43 K/mm3 (4.00-11.30)
[2023-03-03 10:55] LABS: Appearance, Urine Clear (Clear); Bilirubin, Urine Neg (Neg); Blood, Urine 2+ (Neg); Glucose Qualitative, Urine 4+ (Neg); Ketones, Urine 3+ (Neg); Leukocyte Esterase, Urine Neg (Neg); Nitrite, Urine Neg (Neg); Protein, Urine 3+ (Neg); Urobilinogen, Urine NORM (Normal)
[2023-03-03 11:01] LABS: Color, Urine Pale Yellow (P-Yellow)
[2023-03-03 11:02] LABS: Bacteria Rare /hpf; Squamous Epithelial Cells Few /hpf (Few)
[2023-03-03 11:12] LABS: Beta-hydroxybutyrate 42.8 mg/dL (0.2-2.8)
[2023-03-03 11:38] LABS: Albumin/Globulin Ratio 0.5 (0.8-1.8); Bilirubin, Total 0.3 mg/dL (0.1-1.0); Bun/Creatinine Ratio 16.9 (12.0-20.0); Calcium, Blood 8.7 mg/dL (8.5-10.1); Creatinine, Blood 1.66 mg/dL (0.40-1.00); Globulin, Blood 4.1 g/dL (2.2-4.0); Potassium, Blood 4.2 mmol/L (3.5-5.5); Total Protein, Blood 6.1 g/dL (6.4-8.2)
--- NOTE | 2023-03-03 13:30 | NUR ---
INITIAL ASSESSMENT PATIENT ARRIVED FROM ER AT 1315. PATIENT LETHARGIC BUT ORIENTED. PATIENT ANXIOUS AT TIMES WHEN AWAKE. PATIENT WEAK BUT ABLE TO MOVE ALL EXTREMITIES. PATIENT SATTING 90% AND GREATER ON RA. PATIENT IN ST WITH HR IN THE LOW 100S. SBP IN THE 190S. DBP IN THE 1-TEENS. PATIENT DENIES NAUSEA OR ABD PAIN. APPEARS WNL. L BKA AND R TOES AMPUTATED. PRESSURE SORE NOTED TO L BKA STUMP. SCAB TO L KNEE. SCAB TO R STUMP WHERE TOES AMPUTATED. SCATTERED BRUISES NOTED T/O BODY. STARTING TO TRY AND OBTAIN PG 1 IV PRESENT INFILTRATED UPON ARRIVAL FROM ED. PATIENT ORIENTED TO ROOM AND CALL LIGHT. BED LOW, CALL LIGHT IN REACH. CARE CONTINUES.
[2023-03-03 15:16] LABS: Glucose, Blood 781 mg/dL (70-99)
--- NOTE | 2023-03-03 15:26 | NUR ---
DR. CONTRERAS HERE TO SEE PATIENT. UPDATED ON PATIENT STATUS. INFORMED THAT LINE HAD TO BE PLACED AND THAT STILL WAITING ON GLUCOSE LEVEL FROM LAB. ORDERS RECEIVED.
--- NOTE | 2023-03-03 16:04 | NUR ---
PATIENT AFEBRILE. HR IN THE 80S. SBP IN THE 120S AFTER PRN LABETALOL GIVEN. INSULIN DRIP AT 4 UNITS/ HOUR. NO COMPLAINTS AT THIS TIME. BED LOW, CALL LIGHT IN REACH. CARE CONTINUES.
[2023-03-03 17:29] LABS: Bun/Creatinine Ratio 15.1 (12.0-20.0); Calcium, Blood 8.2 mg/dL (8.5-10.1); Creatinine, Blood 1.72 mg/dL (0.40-1.00); Potassium, Blood 4.1 mmol/L (3.5-5.5)
[2023-03-03 18:36] LABS: Glucose, Blood 491 mg/dL (70-99)
--- NOTE | 2023-03-03 19:01 | NUR ---
SHIFT SUMMARY PATIENT ALERT AND ORIENTED X 4. PATIENT LESS LETHARGIC AND MORE AWAKE NOW. PATIENT HAS REMAINED AFEBRILE. PATIENT HAS REMAINED SATTING 90% AND GREATER ON RA. HR 80S TO LOW 100S. SBP LOW 100S TO LOW 200S. BP MUCH BETTER AFTER PRN LABETALOL GIVEN. NO COMPLAINTS OF NAUSEA THIS SHIFT. PATIENT ON CLEAR LIQUID DIET AND TOLERATING WELL. 1300 MLS OF URINE OUT THIS SHIFT. NO CHANGES TO SKIN NOTED. PATIENT REPOSITIONED SELF T/O SHIFT. INSULIN DRIP CURRENTLY AT 2 UNITS/ HOUR AND NS AT 150 MLS/ HOUR. PATIENT HAD 1 L NS BOLUS THIS SHIFT. PATIENT HAD 20 MEQ KCL THIS SHIFT. PATIENT HAS NO COMPLAINTS AT THIS TIME. BED LOW, CALL LIGHT IN REACH. REPORT GIVEN TO ASSUMING APPLICATION DEVELOPER NURSE.
--- NOTE | 2023-03-03 20:58 | NUR ---
ASSUMPTION OF CARE/ASSESSMENT: ASSUMED CARE OF PT AT 1900; PT ASLEEP IN BED BUT WAKES EASILY TO VERBAL STIMULI AND THEN IS ALERT WHEN AWAKE. PT A&O X 4, PLEASANT AND COOPERATIVE WITH CARE. PT APPEARS ANXIOUS BUT REMAINS CALM. PT REPORTS 8/10 HEADACHE, CALL PLACED TO RESIDENT AND NEW ORDERS RECIEVED; PT MEDICATED PER EMAR. PT CURRENTLY ON RA WITH SPO2 99<, LUNG SOUNDS ARE CLEAR THROUGHOUT AND PT DENIES SOB. SR-ST ON MONITOR WITH HR 90-100'S, SBP 150'S AND PT DENIES CHEST PAIN AT THIS TIME. HYPOACTIVE BOWEL SOUNDS IN ALL QUADRANTS NOTED; ABD SOFT, NON-TENDER AND PT IS REPORTING NAUSEA, MEDS PER EMAR. PT USING BEDPAN FOR ELIMINATION NEEDS; ABLE TO COMMUNICATE WHEN NEEDING TO GO TO THE BATHROOM. PT HAS SCATTERED SCABS/SCRATCHES ON BLE AND SCATTERED BRUSING THROUGHOUT BODY; PICTURES TAKEN, SEE CHART. PT OBSERVED INDEPENDENT REPOSITIONING. PG TO MJ INFUSING INSULIN GTT @ 1 UNIT/HR AND NS @ 150 MLS/HR. PT TOLERATING PO INTAKE AT THIS TIME AND IS SIPPING ON CHICKEN BROTH. BED LOWERED, CALL LIGHT IN REACH.
[2023-03-03 21:19] LABS: Bun/Creatinine Ratio 14.6 (12.0-20.0); Calcium, Blood 8.1 mg/dL (8.5-10.1); Creatinine, Blood 1.64 mg/dL (0.40-1.00); Potassium, Blood 3.7 mmol/L (3.5-5.5)
[2023-03-04] VITALS (49 sets, daily range): BP systolic 125–192; BP diastolic 78–169
[2023-03-04 04:12] LABS: Bun/Creatinine Ratio 15.9 (12.0-20.0); Calcium, Blood 7.6 mg/dL (8.5-10.1); Creatinine, Blood 1.45 mg/dL (0.40-1.00); Potassium, Blood 4.2 mmol/L (3.5-5.5)
[2023-03-04 05:25] LABS: Source, Urine Clean Catch
[2023-03-04 05:30] LABS: Appearance, Urine Clear (Clear); Bilirubin, Urine Neg (Neg); Blood, Urine 2+ (Neg); Color, Urine Yellow (P-Yellow); Glucose Qualitative, Urine 4+ (Neg); Ketones, Urine 2+ (Neg); Leukocyte Esterase, Urine Neg (Neg); Nitrite, Urine Neg (Neg); Protein, Urine 4+ (Neg); Urobilinogen, Urine NORM (Normal)
[2023-03-04 05:44] LABS: Bacteria Rare /hpf; Red Blood Cells, Urine 0-2 /hpf (0-2); Squamous Epithelial Cells Few /hpf (Few)
[2023-03-04 05:45] LABS: U Amphetamine Screen DETECTED; U Barbituate Screen Not Detected; U Benzodiazapine Screen Not Detected; U Buprenorphine Screen Not Detected; U Cannabinoids Screen DETECTED; U Cocaine Screen Not Detected; U Methadone Screen Not Detected; U Methamphetamine Screen DETECTED; U Opiates Screen Not Detected; U Oxycodone Screen Not Detected; U Phencyclidine Screen Not Detected; U Propoxyphene Screen Not Detected
--- NOTE | 2023-03-04 06:43 | NUR ---
SHIFT SUMMARY: NO ACUTE CHANGES OVERNIGHT. PT SLEPT ON AND OFF; CONTINUOUS C/O HEADACHE/MIGRAINE THROUGHOUT THE NIGHT. CALL PLACED TO PROVIDER AND PT MOST RECENTLY MEDICATED WITH MIGRAINE MEDICATION PER EMAR. PT WOKE UP THIS MORNING NAUSEOUS; MEDICATED WITH ZOFRAN PER EMAR. INSULIN GTT DC'D AT 0000 WITH CBG'S < 150; PT TRANSITIONED TO SUBQ INSULIN PER DR CHEUNG. PT TOLERATING CLEAR LIQUID PO INTAKE AND HAS BEEN DRINKING WATER/CHICKEN BROTH THROUGHOUT THE NIGHT. PT REQUIRED TWO PRN DOSES OF LABETOLO FOR HTN. 800 ML URINE OUTPUT THIS SHIFT. BED LOWERED, CALL LIGHT IN REACH, PT COMMUNICATES NEEDS APPROPRIATELY. WILL REPORT OFF TO ONCOMING RN.
--- NOTE | 2023-03-04 08:00 | NUR ---
INITIAL ASSESSMENT PATIENT ALERT AND ORIENTED X 4, AFEBRILE. PATIENT CALM AND PLEASANT. PATIENT DOES HAVE ANXIETY AT TIMES. PATIENT COMPLAINTS OF HEADACHE THIS AM. NIGHT RN GAVE MIGRAINE MEDICATION THIS AM. PATIENT WEAK BUT ABLE TO MOVE ALL EXTREMITIES. L BKA AND R METATARSALS AMPUTATION. PATIENT SATTING 90% AND GREATER ON RA. PATIENT IN SR, HR IN THE 80S. SBP IN THE 170S. GI WNL. PATIENT DENIES NAUSEA. PATIENT HUNGRY. WNL. PRESSURE ULCER TO L BKA STUMP. SCAB NOTED TO L KNEE. SCAB NOTED TO METATARSALS STUMP. BRUISES SCATTERED T/O. BED LOW, CALL LIGHT IN REACH.
--- NOTE | 2023-03-04 12:00 | NUR ---
PATIENT AFEBRILE. PATIENT STATES SHE STILL HAS HEADACHE. SCHEDULED TYLENOL GIVEN. PATIENT STATES SHE THINKS IT MAY BE FROM NOT SMOKING BUT DOES NOT WANT NICOTINE REPLACMENT AT THIS TIME. HR IN THE 80S. SBP IN THE 160S AFTER PRN LABETALOL GIVEN. NORVASC STARTED AND ADMINISTERED AT THIS TIME FOR HTN. PATIENT STATES SHE IS NAUSEOUS. PATIENT STATES HER NAUSEA IMPROVES WITH FOOD. PATIENT GIVEN PRN VIT B-6. PATIENT HAVING LIQUID DIARRHEA. NS STARTED AT 200 MLS/ HOUR X [address] ARAUJO. BLOOD SUGAR 371; COVERAGE ADMINISTERED. BED LOW, CALL LIGHT IN REACH. CARE CONTINUES.
--- NOTE | 2023-03-04 12:30 | NUR ---
Spiritual Care Visit. Pt. is awake in bed, recongizes this brick extruder operator and welcomes my visit. Pt. soon displayed evidence of nausea. This brick extruder operator had a nurse get an emesis bag. Facilitated a short life review. This brick extruder operator kept the visit short, but the Pt. welcomed this chapalin to return.
--- NOTE | 2023-03-04 15:05 | NUR ---
DR. MUNIZ CALLED AND INFORMED THAT PATIENT COMPLAINING THAT HEADACHE IS 10/10. INFORMED THAT PATIENT GIVEN 2 DOSES TORADOL LAST NIGHT FOR IT AND OT IMITREX. INFORMED THAT SCHEDULED TYLENOL ALSO STARTED ON CONCRETE MIXER OPERATOR HELPER. INFORMED THAT PATIENT STATED TORADOL STOPPED WORKING FOR THE HEADACHE AFTER THE SECOND DOSE AND STATES "I DON'T KNOW" WHEN ASKED IF SHE FELT IMITREX WORKED FOR HER WHEN GIVEN BEFORE. ALSO INFORMED THAT PATIENT INQUIRING ABOUT MEDICATION FOR HER LIQUID STOOLS. STATED SHE WOULD LOOK UP PATIENT CHART AND PLACE ORDERS. NO VERBAL ORDERS RECEIVED AT THIS TIME.
--- NOTE | 2023-03-04 16:30 | NUR ---
PATIENT AFEBRILE. HR IN THE 90S. SBP IN THE 160S. PATIENT HAVING BROWN, LIQUID STOOLS. BLOOD SUGAR 272; COVERAGE ADMINISTERED. CARE CONTINUES.
--- NOTE | 2023-03-04 19:32 | NUR ---
SHIFT SUMMARY PATIENT REMAINED ALERT AND ORIENTED X 4, AFEBRILE. PATIENT COMPLAINED OF HEADACHE T/O SHIFT. PATIENT ANXIOUS AT TIMES BUT COOPERATIVE. PATIENT REMAINED SATTING 90% AND GREATER ON RA. HR 80S TO 90S. SBP 130S TO 180S. PRN LABETALOL GIVEN OT. NORVASC ADDED TO EMAR THIS SHIFT. PATIENT HAD SEVERAL BROWN, LIQUID STOOLS THIS SHIFT. PRN IMODIUM GIVEN OT. PATIENT HAD LARGE APPETITE. BLOOD SUGARS RANGED FROM 272 TO 371. SLIDING SCALE INCREASED FROM LSS TO HSS. PATIENT GIVEN PRN B-6 OT THIS SHIFT FOR COMPLAINTS OF NAUSEA. PATIENT STATED THAT NAUSEA BETTER WHEN EATING. WNL. NO CHANGES TO SKIN NOTED. PATIENT DECLINED BED BATH. NS INFUSING AT 200 MLS/ HOUR X 3 L. PATIENT RECEIVED FLU VACCINE PER REQUEST THIS SHIFT. BED LOW, CALL LIGHT IN REACH. REPORT GIVEN TO ASSUMING REGISTER OF DEEDS NURSE.
--- NOTE | 2023-03-04 20:45 | NUR ---
ASSESSMENT/ASSUMED CARE PT C/O HEADACHE 03/10 AND NAUSEA. CALL OUT TO MD. LUNGS CLEAR ON ROOMAIR. RESP EVEN AND NONLABORED. HEART RATE REGULAR IN THE 90'S. BP ELEVATED 170/102 MAP 87. BT+ ABD SOFT NONTENDER. POWER GLIDE TO LEFT UPPER ARM WITH NS AT 200 ML/HR. WILL CALL MD TO DECREASE IV FLUID RATE. PT TURNING AND MOVING SELF IN BED. RIGHT FOOT WITH HEALING SORE.
--- NOTE | 2023-03-04 20:56 | NUR ---
CALL TO MD CALL TO DR LOWE REGARDING CONT HEADACHE AND NAUSEA. BP 170/102 HEART RATE 87. RECEIVED ORDERS FOR HYDRALAZINE 10 MG IV NOW AND ATIVAN 0.5 MG IV NOW.
--- NOTE | 2023-03-04 21:23 | NUR ---
MEDS PT MED WITH HYDRALAZINE AND ATIVAN PER ORDER
--- NOTE | 2023-03-04 22:39 | NUR ---
PT UP TO [facility] WITH WALKER AND STANDBY ASSIST. VOIDED 400 ML CLEAR URINE. BACK TO BED. PT REQUESTING SANDWICH-GIVEN. PT STATES,"MY NAUSEA IS MUCH BETTER, BUT THE HEADACHE IS STILL THERE". PT MED WITH TYLENOL AND TORADOL.
[2023-03-05] VITALS (7 sets, daily range): BP systolic 148–170; BP diastolic 92–108
[2023-03-05 04:34] LABS: Bun/Creatinine Ratio 15.9 (12.0-20.0); Calcium, Blood 7.5 mg/dL (8.5-10.1); Creatinine, Blood 1.57 mg/dL (0.40-1.00); Potassium, Blood 3.9 mmol/L (3.5-5.5)
--- NOTE | 2023-03-05 05:28 | NUR ---
SHIFT SUMMARY PT RESTING QUIETLY AT THIS TIME. VSS. PT C/O HEADACHE ALL NIGHT MED WITH TYLENOL, TORADOL AND ATIVAN PER EMAR. PT STATES,"MY HEADACHE IS A LITTLE BETTER THIS MORNING. I WAS ABLE TO GET SOME SLEEP". PT STILL REPORTS HEADACHE 9/10 WHEN ASKED TO RATE PAIN. PT UP TO BSC WITH STANDBY ASSIST AND WALKER. VOIDING CLEAR YELLOW URINE. PT MED WITH HYDRALAZINE AND LABETALOL FOR HTN. PT MOVING AND TURNING SELF IN BED. REPORT TO ON COMING NURSE
--- NOTE | 2023-03-05 12:19 | NUR ---
REASSESSMENT PT HAS BEEN RESTING IN BED THROUGH THE MORNING. SHE GETS UP TO THE COMMODE WITH MINIMAL ASSIST TO VOID, BUT THEN GETS BACK IN BED AND RESTS. SHE COMPLAINS OF HEADACHE, MEDICATING PER THE MAR. PT THINKS IT'S RELATED TOT HE SORES ON HER HEAD. OFFERED PT ICE FOR HER HEAD TO HELP WITH THE SORES, BUT SHE REFUSES. BP REMAINS ELEVATED WITH SBP 160S, INCREASED DOSE IN METOPROLOL GIVEN. LUNGS REMAIN CLEAR, RA. EATING WELL. CARE MANAGEMENT SETTING PT UP WITH ADAPT. CONTINUING TO MONITOR.
--- NOTE | 2023-03-05 13:16 | NUR ---
Spiritual care visit conducted. Patient remembers me from prior hospital stays. She tells me that her life has deteriorated since her last admission here, stating that she is homeless and that her family will have nothing to do with her, due to her addiction. She says that she is lonely, afraid and feeling hopeless to have any success in overcoming her addiction. She explains that her miguel is the only thing that keeps her moving forward. We discuss paths forward in life and with reconciliation with family. I normalize her experience, reinforce her strength and courage, and provide therapeutic listening, gentle college admissions counselor and prayer. Patient responded well and displayed evidence of renewed hope. I will continue to remain available to patient and family.
--- NOTE | 2023-03-05 16:12 | NUR ---
TRANSFER PT HAS CONTINUED TO SLEEP IN BED THIS AFTERNOON, EXCEPT WHEN GETTING UP TO THE COMMODE. PT APPEARED TO SLEEP FOR A COUPLE HOURS AFTER RECEIVING TYLENOL AND TORADOL FOR HER HEADACHE. PT TRANSFERRED TO RM [id number]. REPORT CALLED TO MED CM RN. PT TRANSFERRED VIA . ALL BELONGINGS SENT WITH PT.
--- NOTE | 2023-03-05 17:25 | NUR ---
LATE ENTRY PT TRANSFERED FROM ICU. REPORT RECEIVED FROM LELA. PT IS TEARFUL AND C/O SEVERE HEADACHE. OFFERED EMOTIONAL SUPPORT, PT SEEMS WITHDRAWN. TREATED HEADACHE PER EMAR. ALERT AND ORIENTED X4. R/A, BED IS IN THE LOWEST POSITION WITH CALL LIGHT IN REACH
[2023-03-06 03:31] VITALS: BP 174/106
--- NOTE | 2023-03-06 06:30 | NUR ---
SHIFT SUMMARY PT LAYING IN BED DURING BEDSIDE REPORT, PT REPORTED RELIEF FROM THE TORADOL GIVEN EARLIER 2129 CALL TO ONESIMO REEDER RE: PT REQUESTING ADDITIONAL PAIN MEDICATION AND SOMETHING FOR THE ITCHING ON HER SCALP SORES, NEW ORDER FOR BENADRYL AND TO CONTINUE WITH GIVING THE SCHEDULED TYLENOL AND TORADOL [id number] PT CALLED AND CRYING HYSTERICALLY BECAUSE SHE CAN'T TAKE THE PAIN ANYMORE AND WANTED TO LEAVE, GAVE THE SCHEDULED TYLENOL AND TORADOL PRN AND ENCOURAGED PT TO LET THE MEDICATIONS BEGIN TO WORK - PT AGREED 114 PT REQUESTED APPLE JUICE, CHEESE, SANDWICHES- JOSEPH ROAA GAVE HER MEAT AND CHEESE AND OFFERED ALTERNATIVE TO APPLE JUICE, PT ONCE AGAIN GOT EMOTIONAL AND CRYING AND ASKED FOR CRACKERS- REMINDED PT THAT SHE IS ON AN ADA DIET AND IS ADMITTED D/T HIGH SUGARS - PT UPSET AND REPEATED SHE WANTED TO LEAVE, ENCOURAGED PT TO SLEEP AND REMINDED HER THE PLAN IS FOR HER TO DISCHARGE IN MORNING IF LAB WORK IS BETTER- PT CALMED AND WENT BACK TO RESTING
[2023-03-06 07:49] VITALS: BP 191/106
[2023-03-06 08:13] LABS: Bun/Creatinine Ratio 18.9 (12.0-20.0); Calcium, Blood 7.6 mg/dL (8.5-10.1); Creatinine, Blood 1.75 mg/dL (0.40-1.00); Potassium, Blood 4.4 mmol/L (3.5-5.5)
[2023-03-06 12:44] VITALS: BP 158/99
--- NOTE | 2023-03-06 12:54 | NUR ---
MD CALL DR ARAUJO CALLED. PT'S BP 158/99. 1 TIME HYDRALAZINE ORDER IN. DR ARAUJO SAID THAT PT CAN BE DISCHARGED HOME AND HYDRALAZINE DOSE DOES NOT NEED TO BE GIVEN. READ BACK DONE.
[2023-03-06] MEDS ORDERED: NORVASC10 MG PO (13:53)
--- NOTE | 2023-03-06 14:33 | NUR ---
DISCHARGE NOTE MS KLINE HAS BEEN DISCHARGED FROM [facility] AT 1430HRS. SHE HAS HAD PAIN ON HER HEAD TODAY REQUIRING TYLENOL AND TORADOL WHICH SHE SAID TAKES THE EDGE OFF. HEAD PAIN FROM WHAT SHE SAID ARE INSECT BITES THAT SHE SCRATCHED AT. ADAPT REPRESENTATIVES CAME TO HER ROOM THIS MORNING BUT SHE TOLD THEM THAT SHE IS NOT INTERESTED IN THEIR SERVICES AND ONLY WANTS IN PT REHAB. BEE BEAM HOUSE INSPECTOR TOLD PT THAT SHE HAS TO GET OUT PT REHAB BEFORE GETTING IN PT REHAB. PT SAID THAT SHE IS NOT INTERESTED IN OUT PT REHAB. SHE SAID THAT SHE WAS UNABLE TO GET HER SUPPLIES PREVIOUSLY BUT THAT SHE WILL BE ABLE TO GET HER SUPPLIES NOW AND WILL GET HER MEDICATIONS AND BLOOD GLUCOSE MONITOR. SHE VERBALISED UNDERSTANDING OF WRITTEN AND VERBAL DISCHARGE INSTRUCTIONS AND VERABALISED THAT SHE KNOWS HOW TO DO THE INSULIN SLIDING SCALE. SHE WAS DISCHARGED WITH HER FRIEND VIA WHEELCHAIR, ESCORTED TO THE EXIT.
== END 2023-03-06 14:29 | disposition home or self-care (01) | DRG 637 ==
LOC: ER 09:12 → ICUE 12:26 → EDBEDREQSVC 12:57 → EDBEDREQ 12:57 → EDBEDREQTM 12:57 → ICUE 13:07 → MEDS 03-05 16:08 → ENPENDDIS 03-06 12:22 → MEDS 03-06 14:29
PROVIDERS: Student in an Organized Health Care Education/Training Program; ADMIT Hospitalist
DX: E10.10 Type 1 diabetes mellitus with ketoacidosis without coma (principal); G92.8 Other toxic encephalopathy; N17.9 Acute kidney failure, unspecified; F15.10 Other stimulant abuse, uncomplicated; R94.31 Abnormal electrocardiogram [ECG] [EKG]; E10.22 Type 1 diabetes mellitus with diabetic chronic kidney disease; N18.30 Chronic kidney disease, stage 3 unspecified; I16.0 Hypertensive urgency; G40.909 Epilepsy, unspecified, not intractable, without status epilepticus; I10 Essential (primary) hypertension; K21.9 Gastro-esophageal reflux disease without esophagitis; F41.9 Anxiety disorder, unspecified; F32.A Depression, unspecified; J44.9 Chronic obstructive pulmonary disease, unspecified; Z91.148 Patient's other noncompliance with medication regimen for other reason; Z88.5 Allergy status to narcotic agent; Z88.1 Allergy status to other antibiotic agents; Z86.19 Personal history of other infectious and parasitic diseases; Z86.14 Personal history of Methicillin resistant Staphylococcus aureus infection; Z89.512 Acquired absence of left leg below knee; Z90.49 Acquired absence of other specified parts of digestive tract; Z89.431 Acquired absence of right foot; Z87.891 Personal history of nicotine dependence
CPT/HCPCS: 36415; 71045; 80048; 80053; 81001; 82010; 82803; 82947; 83735; 85025; 93005; 93010; A9270; C1751; G0008; J0360; J1650; J1790; J1815; J1885; J2060; J3480; J7030; J7050; Q2036

== ENCOUNTER 2023-03-11 11:01 | Emergency (ER) | payer OTHER ==
[~2023-03-11] VITALS: Ht 172.7 cm; Wt 65.8 kg
[~2023-03-11 11:01] MED LIST changes: +NORVASC10 MG PO; -NOVOLOG FL100 UNIT/3; +NOVOLOG FL100 UNIT/3 SC
[2023-03-11 11:22] LABS: Base Excess Venous -4.7 mmol/L; Bicarbonate Venous 20.7 mmol/L (24.0-30.0); PCO2 Venous 35.4 mmHg (38-42); pH Blood Venous 7.37 (7.34-7.37)
[2023-03-11 11:26] LABS: BASOPHILS ABSOLUTE AUTO 0.06 K/mm3 (0.00-0.23); BASOPHILS PERCENT AUTO 1 % (0-2); EOSINOPHILS ABSOLUTE AUTO 0.01 K/mm3 (0.00-0.68); EOSINOPHILS PERCENT AUTO 0 % (0-6); Hematocrit 29.5 % (33.0-51.0); Hemoglobin 9.7 g/dL (11.5-16.0); IMMATURE GRAN ABSOLUTE AUTO 0.05 K/mm3 (0.00-0.10); IMMATURE GRAN PERCENT AUTO 0 % (0-1); LYMPHOCYTES ABSOLUTE AUTO 1.67 K/mm3 (0.84-5.20); LYMPHOCYTES PERCENT AUTO 15 % (21-46); MONOCYTES ABSOLUTE AUTO 0.67 K/mm3 (0.16-1.47); MONOCYTES PERCENT AUTO 6 % (4-13); Mean Corpuscular HGB 28.9 pg (26.0-34.0); Mean Corpuscular HGB Conc 32.9 g/dL (31.5-36.5); Mean Corpuscular Volume 88 fL (80-100); Mean Platelet Volume 10.1 fL (9.1-12.4); NEUTROPHILS ABSOLUTE AUTO 8.85 K/mm3 (1.96-9.15); NEUTROPHILS PERCENT AUTO 78 % (41-73); Platelet Count 447 K/mm3 (150-400); RDW Coefficient Variation 13.8 % (11.7-14.2); RDW Standard Deviation 44.6 fL (35.1-46.3); Red Blood Cell Count 3.36 M/mm3 (3.80-5.20); White Blood Cell Count 11.31 K/mm3 (4.00-11.30)
[2023-03-11 12:08] LABS: Beta-hydroxybutyrate 33.9 mg/dL (0.2-2.8)
[2023-03-11 12:17] LABS: Albumin, Blood 2.1 g/dL (3.4-5.0); Albumin/Globulin Ratio 0.4 (0.8-1.8); Bilirubin, Total 0.4 mg/dL (0.1-1.0); Bun/Creatinine Ratio 12.8 (12.0-20.0); Calcium, Blood 8.5 mg/dL (8.5-10.1); Creatinine, Blood 1.48 mg/dL (0.40-1.00); Potassium, Blood 4.3 mmol/L (3.5-5.5); Total Protein, Blood 7.1 g/dL (6.4-8.2)
[2023-03-11] MEDS ORDERED: CLIN300 PO (14:19)
[2023-03-11 15:01] VITALS: BP 139/71
== END 2023-03-11 15:00 | disposition home or self-care (01) ==
LOC: ER 11:01
PROVIDERS: Emergency Medicine
DX: E10.65 Type 1 diabetes mellitus with hyperglycemia (principal); F41.9 Anxiety disorder, unspecified; F32.A Depression, unspecified; I12.9 Hypertensive chronic kidney disease with stage 1 through stage 4 chronic kidney disease, or unspecified chronic kidney disease; E10.22 Type 1 diabetes mellitus with diabetic chronic kidney disease; N18.9 Chronic kidney disease, unspecified; D63.1 Anemia in chronic kidney disease; L02.811 Cutaneous abscess of head [any part, except face]; L03.811 Cellulitis of head [any part, except face]; E87.1 Hypo-osmolality and hyponatremia; F15.11 Other stimulant abuse, in remission; J44.9 Chronic obstructive pulmonary disease, unspecified; Z88.1 Allergy status to other antibiotic agents; Z88.5 Allergy status to narcotic agent; Z79.899 Other long term (current) drug therapy; Z87.891 Personal history of nicotine dependence
CPT/HCPCS: 80053; 82010; 82803; 82947; 85025; 93005; 93010; 96365; 96375; 99285-25; J1885; J2405; J7030

== ENCOUNTER 2023-03-12 10:42 | Observation (INO) | payer OTHER ==
[~2023-03-12] VITALS: Ht 172.7 cm; Wt 65.8 kg
[2023-03-12 11:24] LABS: BASOPHILS ABSOLUTE AUTO 0.06 K/mm3 (0.00-0.23); BASOPHILS PERCENT AUTO 1 % (0-2); EOSINOPHILS ABSOLUTE AUTO 0.01 K/mm3 (0.00-0.68); EOSINOPHILS PERCENT AUTO 0 % (0-6); Hematocrit 23.7 % (33.0-51.0); Hemoglobin 7.9 g/dL (11.5-16.0); IMMATURE GRAN ABSOLUTE AUTO 0.07 K/mm3 (0.00-0.10); IMMATURE GRAN PERCENT AUTO 1 % (0-1); LYMPHOCYTES ABSOLUTE AUTO 1.71 K/mm3 (0.84-5.20); LYMPHOCYTES PERCENT AUTO 14 % (21-46); MONOCYTES ABSOLUTE AUTO 0.59 K/mm3 (0.16-1.47); MONOCYTES PERCENT AUTO 5 % (4-13); Mean Corpuscular HGB 29.8 pg (26.0-34.0); Mean Corpuscular HGB Conc 33.3 g/dL (31.5-36.5); Mean Corpuscular Volume 89 fL (80-100); Mean Platelet Volume 9.9 fL (9.1-12.4); NEUTROPHILS ABSOLUTE AUTO 9.89 K/mm3 (1.96-9.15); NEUTROPHILS PERCENT AUTO 80 % (41-73); Platelet Count 346 K/mm3 (150-400); RDW Coefficient Variation 13.5 % (11.7-14.2); Red Blood Cell Count 2.65 M/mm3 (3.80-5.20); White Blood Cell Count 12.33 K/mm3 (4.00-11.30)
[2023-03-12 11:28] LABS: Base Excess Venous -11.3 mmol/L; Bicarbonate Venous 16.1 mmol/L (24.0-30.0); PCO2 Venous 33.4 mmHg (38-42); pH Blood Venous 7.28 (7.34-7.37)
[2023-03-12 12:07] LABS: Albumin, Blood 1.6 g/dL (3.4-5.0); Albumin/Globulin Ratio 0.4 (0.8-1.8); Bilirubin, Total 0.3 mg/dL (0.1-1.0); Bun/Creatinine Ratio 15.9 (12.0-20.0); Calcium, Blood 7.8 mg/dL (8.5-10.1); Creatinine, Blood 1.7 mg/dL (0.40-1.00); Globulin, Blood 3.9 g/dL (2.2-4.0); Potassium, Blood 3.9 mmol/L (3.5-5.5); Total Protein, Blood 5.5 g/dL (6.4-8.2)
[2023-03-12 16:06] VITALS: BP 184/105
[2023-03-12 17:07] VITALS: BP 155/92
[2023-03-12 17:09] LABS: Bun/Creatinine Ratio 14.6 (12.0-20.0); Calcium, Blood 7.9 mg/dL (8.5-10.1); Creatinine, Blood 1.57 mg/dL (0.40-1.00); Potassium, Blood 3.5 mmol/L (3.5-5.5)
[2023-03-12 18:01] LABS: U Amphetamine Screen Not Detected; U Barbituate Screen Not Detected; U Benzodiazapine Screen Not Detected; U Buprenorphine Screen Not Detected; U Cannabinoids Screen DETECTED; U Cocaine Screen Not Detected; U Methadone Screen Not Detected; U Methamphetamine Screen Not Detected; U Opiates Screen Not Detected; U Oxycodone Screen Not Detected; U Phencyclidine Screen Not Detected; U Propoxyphene Screen Not Detected
--- NOTE | 2023-03-12 18:47 | NUR ---
ADMIT NOTE MS KLINE WAS ADMITTED TO MEDICAL FLOOR FROM THE ER AT 1550HRS. SHE IS ORIENTATED X4, BUT TIRED AND FEELING GENERALLY UNWELL, JUST WANTING TO SLEEP. BLOOD GLUCOSE 383, COVERED WITH SLIDING SCALE INSULIN, NS STARTED AT 150CC/HR AND RECHECKED IN 1.5HRS DOWN TO 342. PT GENERALLY NAUSEAUS BUT HAS NOT VOMITED SINCE ARRIVAL, C/O MID UPPER ABDOMINAL PAIN THAT SHE SAID SHE GETS WHEN HER SUGAR IS HIGH. SHE SAID THAT SHE HAS BEEN TAKING HER INSULIN AND HER ABX, BUT SAID THAT SHE HAS BEEN SLEEPING IN THE BACK OF A FRIEND'S TRUCK SINCE SHE WAS DISCHARGED FROM THE HOSPITAL LAST WEEKEND. BED LOW, CALL LIGHT IN REACH.
[2023-03-12 19:16] VITALS: BP 163/105
[2023-03-13 04:07] VITALS: BP 177/105
--- NOTE | 2023-03-13 04:47 | NUR ---
Blood sugar at 0400 was 395. Patient had previously refused to have IV fluids running. She continued to ask for snacks. MD ordered NS 1000 mL bolus/ 10 units of humalog. Discussed with patient. Dr. Early notified.
--- NOTE | 2023-03-13 06:30 | NUR ---
NOC SHIFT SUMMARY: IV FLUIDS NOT RUNNING THIS AM DUE TO PLACEMENT OF IV SITE. TYLENOL GIVEN TWICE FOR PAIN CONTROL. BLOOD SUGAR HIGH THIS AM. 1 LITER BOLUS GIVEN. 10 UNITS OF HUMALOG GIVEN. DISCUSSED WITH PATIENT REASON FOR FLUIDS AND NOT SNACKING. PATIENT STATES SHE UNDERSTANDS.
[2023-03-13 07:51] VITALS: BP 167/82
[2023-03-13 09:11] LABS: BASOPHILS ABSOLUTE AUTO 0.05 K/mm3 (0.00-0.23); BASOPHILS PERCENT AUTO 0 % (0-2); EOSINOPHILS ABSOLUTE AUTO 0.06 K/mm3 (0.00-0.68); EOSINOPHILS PERCENT AUTO 1 % (0-6); Hematocrit 24.3 % (33.0-51.0); Hemoglobin 8.5 g/dL (11.5-16.0); IMMATURE GRAN ABSOLUTE AUTO 0.13 K/mm3 (0.00-0.10); IMMATURE GRAN PERCENT AUTO 1 % (0-1); LYMPHOCYTES ABSOLUTE AUTO 2.09 K/mm3 (0.84-5.20); LYMPHOCYTES PERCENT AUTO 16 % (21-46); MONOCYTES ABSOLUTE AUTO 0.72 K/mm3 (0.16-1.47); MONOCYTES PERCENT AUTO 5 % (4-13); Mean Corpuscular HGB 29.9 pg (26.0-34.0); Mean Corpuscular Volume 86 fL (80-100); Mean Platelet Volume 10.1 fL (9.1-12.4); NEUTROPHILS ABSOLUTE AUTO 10.22 K/mm3 (1.96-9.15); NEUTROPHILS PERCENT AUTO 77 % (41-73); Platelet Count 318 K/mm3 (150-400); RDW Coefficient Variation 13.9 % (11.7-14.2); RDW Standard Deviation 43.7 fL (35.1-46.3); Red Blood Cell Count 2.84 M/mm3 (3.80-5.20); White Blood Cell Count 13.27 K/mm3 (4.00-11.30)
[2023-03-13 09:52] LABS: Albumin, Blood 1.5 g/dL (3.4-5.0); Albumin/Globulin Ratio 0.4 (0.8-1.8); Bilirubin, Total 0.2 mg/dL (0.1-1.0); Bun/Creatinine Ratio 13.2 (12.0-20.0); Calcium, Blood 7.7 mg/dL (8.5-10.1); Creatinine, Blood 1.59 mg/dL (0.40-1.00); Globulin, Blood 3.8 g/dL (2.2-4.0); Potassium, Blood 3.8 mmol/L (3.5-5.5); Total Protein, Blood 5.3 g/dL (6.4-8.2)
[2023-03-13] MEDS ORDERED: DOXY100 PO (11:53)
[2023-03-13 16:47] VITALS: BP 140/82
--- NOTE | 2023-03-13 17:30 | NUR ---
1659: PT'S EARLY DINNER TRAY HERE. PT'S BG COVERED WITH INSULIN PER EMAR.
--- NOTE | 2023-03-13 18:24 | NUR ---
WRITTEN & VERBAL DC INSTRUCTIONS GIVEN TO PT, GOOD UNDERSTANDING VERBALIZED. ALL CONCERNS & QUESTIONS ADDRESSED. PIV DC'D WITH CATH TIP INTACT, NO REDNESS OR SWELLING NOTED. NEW SCRIPTS FAXED TO [facility] PER PT REQUEST. PT TO [facility] VIA MED TRANSPORT VIA W/C WITH ALL PERSONAL BELONGINGS. TRANSPORT PERSONNEL ABLE TO ALSO TRANSPORT PT'S OWN W/C WHICH IS [facility].
== END 2023-03-13 18:22 | disposition home or self-care (01) ==
LOC: ER 10:42 → MEDS 10:43 → ENPENDDIS 03-13 10:21 → MEDS 03-13 18:22
PROVIDERS: Emergency Medicine; Physician Assistant; ADMIT Internal Medicine
PROC: 0WJ Anatomical Regions, General, Inspection (ICD-10-PCS; principal; 2023-03-12)
DX: E11.10 Type 2 diabetes mellitus with ketoacidosis without coma (principal); E11.51 Type 2 diabetes mellitus with diabetic peripheral angiopathy without gangrene; E11.22 Type 2 diabetes mellitus with diabetic chronic kidney disease; I12.9 Hypertensive chronic kidney disease with stage 1 through stage 4 chronic kidney disease, or unspecified chronic kidney disease; N18.30 Chronic kidney disease, stage 3 unspecified; F15.10 Other stimulant abuse, uncomplicated; L02.01 Cutaneous abscess of face; Z89.511 Acquired absence of right leg below knee; Z91.148 Patient's other noncompliance with medication regimen for other reason
CPT/HCPCS: 36415; 80048; 80053; 82010; 82803; 82947; 83690; 85025; 87070; 87075; 87077; 87147; 87186; 87205; 93005; 93010; 96361; 96374; 96375; 96376; 99285-25; A9270; G0378; J1790; J1815; J2405; J7030

== ENCOUNTER 2023-03-24 19:01 | Inpatient (IN) | payer OTHER ==
[~2023-03-24] VITALS: Ht 172.7 cm; Wt 88.0 kg
[2023-03-24 19:53] LABS: BASOPHILS ABSOLUTE AUTO 0.07 K/mm3 (0.00-0.23); BASOPHILS PERCENT AUTO 1 % (0-2); EOSINOPHILS ABSOLUTE AUTO 0.08 K/mm3 (0.00-0.68); EOSINOPHILS PERCENT AUTO 1 % (0-6); Hematocrit 20.2 % (33.0-51.0); Hemoglobin 6.3 g/dL (11.5-16.0); IMMATURE GRAN ABSOLUTE AUTO 0.09 K/mm3 (0.00-0.10); IMMATURE GRAN PERCENT AUTO 1 % (0-1); LYMPHOCYTES PERCENT AUTO 23 % (21-46); MONOCYTES ABSOLUTE AUTO 0.98 K/mm3 (0.16-1.47); MONOCYTES PERCENT AUTO 9 % (4-13); Mean Corpuscular HGB 30.1 pg (26.0-34.0); Mean Corpuscular HGB Conc 31.2 g/dL (31.5-36.5); Mean Corpuscular Volume 97 fL (80-100); Mean Platelet Volume 10.4 fL (9.1-12.4); NEUTROPHILS ABSOLUTE AUTO 6.82 K/mm3 (1.96-9.15); NEUTROPHILS PERCENT AUTO 65 % (41-73); Platelet Count 380 K/mm3 (150-400); RDW Coefficient Variation 16.8 % (11.7-14.2); RDW Standard Deviation 59.5 fL (35.1-46.3); Red Blood Cell Count 2.09 M/mm3 (3.80-5.20); White Blood Cell Count 10.44 K/mm3 (4.00-11.30)
[2023-03-24 20:11] LABS: Albumin, Blood 1.9 g/dL (3.4-5.0); Albumin/Globulin Ratio 0.5 (0.8-1.8); Bilirubin, Total 0.2 mg/dL (0.1-1.0); Bun/Creatinine Ratio 15.5 (12.0-20.0); Calcium, Blood 7.6 mg/dL (8.5-10.1); Creatinine, Blood 2.33 mg/dL (0.40-1.00); Globulin, Blood 3.8 g/dL (2.2-4.0); Potassium, Blood 4.5 mmol/L (3.5-5.5); Total Protein, Blood 5.7 g/dL (6.4-8.2)
[2023-03-24 20:18] LABS: Source, Urine Clean Catch
[2023-03-24 20:23] LABS: Appearance, Urine Clear (Clear); Bilirubin, Urine Neg (Neg); Blood, Urine 2+ (Neg); Glucose Qualitative, Urine 3+ (Neg); Ketones, Urine Neg (Neg); Leukocyte Esterase, Urine Neg (Neg); Nitrite, Urine Neg (Neg); Protein, Urine 4+ (Neg); Specific Gravity, Urine 1.015 (1.003-1.022); Urobilinogen, Urine NORM (Normal)
[2023-03-24 20:28] LABS: Color, Urine Pale Yellow (P-Yellow)
[2023-03-24 20:29] LABS: Hyaline Casts 0-2 /lpf (0-2)
[2023-03-24 20:30] LABS: Bacteria Few /hpf; Squamous Epithelial Cells Few /hpf (Few); White Blood Cells, Urine 0-2 /hpf (0-5)
[2023-03-24 22:18] LABS: U Amphetamine Screen Not Detected; U Barbituate Screen Not Detected; U Benzodiazapine Screen Not Detected; U Buprenorphine Screen Not Detected; U Cannabinoids Screen DETECTED; U Cocaine Screen Not Detected; U Methadone Screen Not Detected; U Methamphetamine Screen Not Detected; U Opiates Screen Not Detected; U Oxycodone Screen Not Detected; U Phencyclidine Screen Not Detected; U Propoxyphene Screen Not Detected
[2023-03-24 22:32] LABS: Beta-hydroxybutyrate 1.4 mg/dL (0.2-2.8); Thyroid Stimulating Hormone 3.12 uIU/mL (0.360-4.800)
[2023-03-25 00:12] LABS: Base Excess Venous -9.4 mmol/L; Bicarbonate Venous 17.3 mmol/L (24.0-30.0); PCO2 Venous 34.3 mmHg (38-42)
[2023-03-25 03:14] VITALS: BP 148/94
[2023-03-25 04:30] VITALS: BP 155/92
--- NOTE | 2023-03-25 05:18 | NUR ---
ADMIT NOTE; LATE ENTRY. PT ARRIVED TO THE FLOOR VIA ED GURNEY AT 0310. THE PT IS AXO X4 AND ABLE TO SELF TRANSFER VIA SCOOTING FROM THE ED GURNEY TO THE HOSPITAL BED. THE PT ARRIVES W/ PRBC INFUSING AT 100MLS/HR. THE PT ENDORSES SOME LLQ UPON ADMIT BUT OTHERWISE DENIES ANY CHEST PAIN/PRESSURE, SOB, OR N/V. THE PT IS ABLE TO REST IN BED. CURRENTLY THE PT IS SITTING IN BED WITH THE BED IN THE LOWEST POSITION AND THE CALL LIGHT AT BEDSIDE. EDUCATED PT ON FIRE SAFETY AND ASSESSED IGNITION RISK. THE PT HAD A VAPE AND A NOZZLE WORKER ON HER PERSON. SHE GAVE ME THE VAPE AND NOZZLE WORKER TO LOCK IN THE PT DRAWER OUTSIDE OF HER ROOM.
[2023-03-25 05:45] VITALS: BP 162/93
--- NOTE | 2023-03-25 06:20 | NUR ---
SHIFT SUMMARY; PT WITH LOTS OF PAIN SINCE ADMIT IN THE LLQ AND L FLANK AREA. THE PT IS AXO X4 AND INDEPENDENT TO THE BSC VIA STAND AND PIVOT ON HER ONE REMAINING LEG. THE PT RECIEVED 1 UNIT OF PRBC THIS AM. TOLERATED WELL, SYSTOLIC BLOOD PRESSURE WENT 140'S-160'S BUT THE PT HAS BEEN IN PAIN OFF AND ON. THE PT HAS A LOW BLOOD SUGAR THIS AM OF 40, THE PT DRANK APPLE JUICE, ATE A SANDWHICH, HAD A YOGURT AND HER BLOOD SUGAR IS NOW UP TO 82. THE PT DENIES ANY CHEST PAIN/PRESSURE, SOB OR N/V. CURRENTLY THE PT IS SLEEPING IN BED WITH THE BED IN THE LOWEST POSITION AND THE CALL LIGHT AT BEDSIDE. FIRE SAFETY CHECKS COMPLETED, PT DID HAVE A A VAPE AND DE IONIZER OPERATOR IN HER PERSON WHICH ARE NOW LOCKED IN HER PT DRAWER.
[2023-03-25 07:15] VITALS: BP 157/95
[2023-03-25 07:56] LABS: BASOPHILS ABSOLUTE AUTO 0.05 K/mm3 (0.00-0.23); BASOPHILS PERCENT AUTO 0 % (0-2); EOSINOPHILS PERCENT AUTO 1 % (0-6); Hematocrit 24.7 % (33.0-51.0); Hemoglobin 7.7 g/dL (11.5-16.0); IMMATURE GRAN ABSOLUTE AUTO 0.09 K/mm3 (0.00-0.10); IMMATURE GRAN PERCENT AUTO 1 % (0-1); LYMPHOCYTES ABSOLUTE AUTO 3.27 K/mm3 (0.84-5.20); LYMPHOCYTES PERCENT AUTO 28 % (21-46); MONOCYTES ABSOLUTE AUTO 1.07 K/mm3 (0.16-1.47); MONOCYTES PERCENT AUTO 9 % (4-13); Mean Corpuscular HGB 30.1 pg (26.0-34.0); Mean Corpuscular HGB Conc 31.2 g/dL (31.5-36.5); Mean Corpuscular Volume 97 fL (80-100); NEUTROPHILS ABSOLUTE AUTO 6.93 K/mm3 (1.96-9.15); NEUTROPHILS PERCENT AUTO 60 % (41-73); Platelet Count 364 K/mm3 (150-400); RDW Coefficient Variation 16.3 % (11.7-14.2); RDW Standard Deviation 58.1 fL (35.1-46.3); Red Blood Cell Count 2.56 M/mm3 (3.80-5.20); White Blood Cell Count 11.51 K/mm3 (4.00-11.30)
[2023-03-25 08:15] LABS: Albumin/Globulin Ratio 0.5 (0.8-1.8); Bilirubin, Total 0.2 mg/dL (0.1-1.0); Bun/Creatinine Ratio 14.8 (12.0-20.0); Calcium, Blood 7.9 mg/dL (8.5-10.1); Creatinine, Blood 2.29 mg/dL (0.40-1.00); Globulin, Blood 3.8 g/dL (2.2-4.0); Magnesium, Blood 1.8 mg/dL (1.6-2.4); Total Protein, Blood 5.8 g/dL (6.4-8.2)
[2023-03-25 14:40] LABS: Stool Occult Blood Guaiac 1 Neg (Neg)
[2023-03-25 16:18] VITALS: BP 151/95
--- NOTE | 2023-03-25 16:46 | NUR ---
SHIFT SUMMARY- PT IS A/O/I. SHE IS EATING AND DRINKING WELL. SHE WAS RECIEVING IV FENTANYL AND DISUSSED CONCERNS ABOUT TAKING THIS MEDICATION WITH THE PROVIDER THIS MORNING, HE SWITCHED HER MEDICAION TO PERCOCET. PT REPORTED THAT THIS DID NOTHING FOR HER PAIN, PROVIDER CAME BACK AND DISCUSSED PAIN REGIMINE WITH PT, AWAITING ORDERS. HER BED IS IN THE LOW POSITON AND CALL LIGHT IS WITIN REACH.
[2023-03-25 19:18] VITALS: BP 141/82
[2023-03-26] VITALS (8 sets, daily range): BP systolic 158–170; BP diastolic 92–110
--- NOTE | 2023-03-26 04:29 | NUR ---
PT A&O x4, VSS, CBG READING ON NOC SHIFT WAS 158. PT EMOTIONAL THROUGHOUT THE SHIFT, ACTIVE LISTENING AND SUPPORT PROVIDED. THERAPEUTIC COMMUNICATION USED. PT C/O BACK AND R LEG PAIN. PAIN MANAGED WITH PRN PERCOCET, WHICH WAS EFFECTIVE. PT REQUESTED ZOFRAN FOR NAUSEA. PT TRANSFERS WITH ASSISTANCE FROM [facility] TO THE BSC. PT EDUCATION REGARDING NON-PHARMALOGICAL INTERVENTIONS IMPLEMENTED. FREQUENT SAFETY CHECKS COMPLETED THROUGHOUT THE SHIFT. PT SLEPT ON AND OFF. PT ABLE TO MAKE NEEDS KNOWN, CALL LIGHT WITHIN REACH, WCTM.
[2023-03-26 07:37] LABS: BASOPHILS ABSOLUTE AUTO 0.04 K/mm3 (0.00-0.23); BASOPHILS PERCENT AUTO 1 % (0-2); EOSINOPHILS ABSOLUTE AUTO 0.09 K/mm3 (0.00-0.68); EOSINOPHILS PERCENT AUTO 1 % (0-6); Hematocrit 21.8 % (33.0-51.0); IMMATURE GRAN ABSOLUTE AUTO 0.03 K/mm3 (0.00-0.10); IMMATURE GRAN PERCENT AUTO 0 % (0-1); LYMPHOCYTES ABSOLUTE AUTO 1.91 K/mm3 (0.84-5.20); LYMPHOCYTES PERCENT AUTO 27 % (21-46); MONOCYTES ABSOLUTE AUTO 0.75 K/mm3 (0.16-1.47); MONOCYTES PERCENT AUTO 11 % (4-13); Mean Corpuscular HGB 30.7 pg (26.0-34.0); Mean Corpuscular HGB Conc 32.1 g/dL (31.5-36.5); Mean Corpuscular Volume 96 fL (80-100); Mean Platelet Volume 10.5 fL (9.1-12.4); NEUTROPHILS ABSOLUTE AUTO 4.32 K/mm3 (1.96-9.15); NEUTROPHILS PERCENT AUTO 60 % (41-73); Platelet Count 322 K/mm3 (150-400); RDW Standard Deviation 54.9 fL (35.1-46.3); Red Blood Cell Count 2.28 M/mm3 (3.80-5.20); White Blood Cell Count 7.14 K/mm3 (4.00-11.30)
[2023-03-26 08:00] LABS: Albumin, Blood 1.7 g/dL (3.4-5.0); Albumin/Globulin Ratio 0.5 (0.8-1.8); Bilirubin, Total 0.3 mg/dL (0.1-1.0); Bun/Creatinine Ratio 16.5 (12.0-20.0); Calcium, Blood 7.8 mg/dL (8.5-10.1); Creatinine, Blood 2.37 mg/dL (0.40-1.00); Globulin, Blood 3.4 g/dL (2.2-4.0); Potassium, Blood 4.9 mmol/L (3.5-5.5); Total Protein, Blood 5.1 g/dL (6.4-8.2)
--- NOTE | 2023-03-26 14:46 | NUR ---
PT REQUESTED TO HOLD OFF ON BLOOD TRANSFUSION UNTIL SHE SPEAKS WITH FAMILY. PT STATED SHE WILL NOTIFY THIS RN WHEN SHE IS READY TO BEGIN TRANSFUSION. BLOOD CONSENT COMPLETED VERBALLY WITH PT, SIGNED WITH 2 RN VERIFICATION.
--- NOTE | 2023-03-26 20:47 | NUR ---
SHIFT SUMMARY: ADAM IS A&OX4. PT REPORTS HAVING DIFFICULTY REMEMBERING WHAT THE DOCTORS HAVE DISCUSSED WITH HER. REQUESTED HOSPITALIST RETURN AND DISCUSS PT'S CONDITION WITH PT AND HER MOTHER AT PT'S REQUEST. DISCUSSED ELEVATED BP WITH PT WHICH SHE ATTRIBUTES TO UNCONTROLLED PAIN. DISCUSSED WITH HOSPITALIST, NO NEW ORDERS AT THIS TIME. ONE UNIT OF PRBCs INFUSED THIS SHIFT. PT IS TOLERATING PO INTAKE WELL, REPORTS URINATING WITHOUT DIFFICULTY AND STATES THAT SHE HAS NOT HAD A BOWEL MOVEMENT SINCE YESTERDAY. SHE IS SITTING UP IN BED WITH THE CALL LIGHT IN REACH. REPORT WAS GIVEN TO PHARMACOVIGILANCE SCIENTIST RN.
[2023-03-27 02:24] VITALS: BP 187/113
--- NOTE | 2023-03-27 05:18 | NUR ---
SHIFT SUMMARY PT VERY ANXIOUS AND TEARFUL THIS SHIFT. SCHEDULED ATIVAN GIVEN, C/O PHANTOM LEG PAIN THROUGHOUT SHIFT, PRN PERCOCET GIVEN X2, PRN TYLENOL GIVEN X1. PT ALSO C/O NAUSEA AROUND 0400, PRN ZOFRAN GIVEN. PT WOULD FALL ASLEEP ON AND OFF AFTER MEDICATIONS, BUT WAKE UP AND START CRYING. PRN IMITREX ALSO REQUESTED FROM RESIDENT SPINE SPECIALIST, PT C/O HEADACHE IN BEGINNING OF SHIFT IN WHICH SHE STATES SHE TAKES IMITREX AT HOME FOR, PER MD TELEPHONE ORDER RECEIVED TO ORDER HER HOME IMITREX DOSING. IMITREX GIVEN X2. PT BP ELEVATED WELL, HOWEVER, PT VERY ANXIOUS AND CRYING.
[2023-03-27 06:18] LABS: BASOPHILS ABSOLUTE AUTO 0.03 K/mm3 (0.00-0.23); BASOPHILS PERCENT AUTO 1 % (0-2); EOSINOPHILS ABSOLUTE AUTO 0.08 K/mm3 (0.00-0.68); EOSINOPHILS PERCENT AUTO 1 % (0-6); Hematocrit 24.8 % (33.0-51.0); IMMATURE GRAN ABSOLUTE AUTO 0.03 K/mm3 (0.00-0.10); IMMATURE GRAN PERCENT AUTO 1 % (0-1); LYMPHOCYTES ABSOLUTE AUTO 1.45 K/mm3 (0.84-5.20); LYMPHOCYTES PERCENT AUTO 25 % (21-46); MONOCYTES ABSOLUTE AUTO 0.54 K/mm3 (0.16-1.47); MONOCYTES PERCENT AUTO 9 % (4-13); Mean Corpuscular HGB 29.6 pg (26.0-34.0); Mean Corpuscular HGB Conc 32.3 g/dL (31.5-36.5); Mean Corpuscular Volume 92 fL (80-100); Mean Platelet Volume 10.4 fL (9.1-12.4); NEUTROPHILS ABSOLUTE AUTO 3.74 K/mm3 (1.96-9.15); NEUTROPHILS PERCENT AUTO 64 % (41-73); Platelet Count 273 K/mm3 (150-400); RDW Coefficient Variation 15.6 % (11.7-14.2); RDW Standard Deviation 52.9 fL (35.1-46.3); White Blood Cell Count 5.87 K/mm3 (4.00-11.30)
[2023-03-27 06:52] LABS: Albumin, Blood 1.7 g/dL (3.4-5.0); Albumin/Globulin Ratio 0.5 (0.8-1.8); Bilirubin, Total 0.2 mg/dL (0.1-1.0); Bun/Creatinine Ratio 17.7 (12.0-20.0); Calcium, Blood 8.1 mg/dL (8.5-10.1); Creatinine, Blood 2.43 mg/dL (0.40-1.00); Globulin, Blood 3.3 g/dL (2.2-4.0); Magnesium, Blood 1.9 mg/dL (1.6-2.4); Potassium, Blood 4.8 mmol/L (3.5-5.5)
[2023-03-27 07:30] VITALS: BP 166/96
--- NOTE | 2023-03-27 11:08 | NUR ---
[facility] PT HAS BEEN NPO SINCE [place].
--- NOTE | 2023-03-27 11:22 | NUR ---
PT WAS FOUND TO NOT BE IN HER ROOM. EARLY CHILDHOOD EDUCATION WORKER FOUND PT OUTSIDE SMOKING A CIGARETTE. ADVISED EARLY CHILDHOOD EDUCATION WORKER TO CALL SECURITY.
--- NOTE | 2023-03-27 11:34 | NUR ---
SECURITY S/W PT OUTSIDE OF FRONT LOBBY & CONFISCATED HER CIGS & MATCHES. BOTH ARE NOW LOCKED UP IN HER PT MED DRAWER. PT HAS RETURNED TO HER ROOM.
--- NOTE | 2023-03-27 12:18 | NUR ---
INFORMED PT OF HOSPITAL POLICY REGARDING KNOWINGLY VIOLATING SMOKING POLICY. PT IS AGREEABLE TO STAYING IN HOSPITAL. A SITTER WILL THEN BE ASSIGNED.
--- NOTE | 2023-03-27 13:21 | NUR ---
PT TO [facility] WITH ALL PERSONAL BELONGINGS VIA W/C.
[2023-03-27 14:56] VITALS: BP 164/98
--- NOTE | 2023-03-27 16:46 | NUR ---
24 HR URINE STARTED TODAY AT 1615. COLLECTION JUG ON ICE IN THE RESTROOM. RANDOM URINE MICROALBUMIN COLLECTED AND SENT AT 1615.
--- NOTE | 2023-03-27 19:24 | NUR ---
SHIFT SUMMARY PT HAS RESTED WITH EYES CLOSED, RESP EVEN & UNLABORED. VSS. BG AT DINNER TIME WAS 86. MO INSULIN GIVEN. 1:1 SITTER AT BEDSIDE FOR FIRE WATCH. BED IN LOW POSITION, CALL LIGHT WITHIN REACH.
[2023-03-27 21:07] VITALS: BP 162/96
[2023-03-28 07:30] LABS: BASOPHILS ABSOLUTE AUTO 0.05 K/mm3 (0.00-0.23); BASOPHILS PERCENT AUTO 1 % (0-2); EOSINOPHILS ABSOLUTE AUTO 0.09 K/mm3 (0.00-0.68); EOSINOPHILS PERCENT AUTO 2 % (0-6); Hematocrit 25.7 % (33.0-51.0); Hemoglobin 8.4 g/dL (11.5-16.0); IMMATURE GRAN ABSOLUTE AUTO 0.02 K/mm3 (0.00-0.10); IMMATURE GRAN PERCENT AUTO 0 % (0-1); LYMPHOCYTES ABSOLUTE AUTO 1.61 K/mm3 (0.84-5.20); LYMPHOCYTES PERCENT AUTO 27 % (21-46); MONOCYTES ABSOLUTE AUTO 0.45 K/mm3 (0.16-1.47); MONOCYTES PERCENT AUTO 8 % (4-13); Mean Corpuscular HGB Conc 32.7 g/dL (31.5-36.5); Mean Corpuscular Volume 92 fL (80-100); Mean Platelet Volume 10.3 fL (9.1-12.4); NEUTROPHILS PERCENT AUTO 63 % (41-73); Platelet Count 255 K/mm3 (150-400); RDW Coefficient Variation 15.3 % (11.7-14.2); RDW Standard Deviation 51.6 fL (35.1-46.3); White Blood Cell Count 6.02 K/mm3 (4.00-11.30)
[2023-03-28 07:40] VITALS: BP 158/100
[2023-03-28 07:44] LABS: Albumin, Blood 1.7 g/dL (3.4-5.0); Albumin/Globulin Ratio 0.5 (0.8-1.8); Bilirubin, Total 0.3 mg/dL (0.1-1.0); Bun/Creatinine Ratio 17.6 (12.0-20.0); Creatinine, Blood 2.39 mg/dL (0.40-1.00); Globulin, Blood 3.6 g/dL (2.2-4.0); Potassium, Blood 4.9 mmol/L (3.5-5.5); Total Protein, Blood 5.3 g/dL (6.4-8.2)
[2023-03-28 15:25] VITALS: BP 151/98
--- NOTE | 2023-03-28 15:30 | NUR ---
palative care Pt Mother arrived from [place]. Called [facility]. Carisa called pt medical care team. Dr Montez arrived to visit with pt/parent. Care on going.
--- NOTE | 2023-03-28 15:47 | NUR ---
Multiple visits today to review her needs. Pt mother is here form [place] and is going to stay with her. Review with mother and patient her chart and prognosis. We reviewed renal funtion. The reason for the twenty four hour urine and other diagnostics. Review of the eight domains of care she is struggling with living at the [facility]. She is struggling with her mental health and addiction. She is tearful and bargaining during conversation. She wanted to speak to the other doctors stating they mentioned hospice. Discused with mother that if she continues to decline further she will need dialysis. Advised that if she denies dialysis she will eventually need hospice. Review with physcians her anexiety medications may need higher dose. suggest increased outpatient care with nephrolgy and psyciatric care. Since family lives in [place]. Will suggest pt look at [facility] or [facility] as a possibility for more womens services for homelessness.
--- NOTE | 2023-03-28 16:55 | NUR ---
note PT RESTING QUIETLY. MET WITH [facility]ARE. MOTHER AT BEDSIDE. VSS. MARKET RESEARCHER IN ATTENDANCE IN DOOR WAY. H/L. RA. PT HEADACHE RESOLVED WITH A CUP OF COFFEE. SHE DRINKS A LARGE AMOUNT OF CAFFEINE BASED BEVERAGES. CONTINUE POC.
--- NOTE | 2023-03-28 18:19 | NUR ---
24 HOUR URINE 24 HOUR URINE TRANSFERED TO LAB IN A BIOHAZARD BAG. PLACED ON COUNTER. CONTINUE POC.
[2023-03-28 18:57] LABS: Protein, Urine Quantitative 423.2 mg/dL (0.0-11.9)
[2023-03-28 19:52] VITALS: BP 165/87
[2023-03-29 03:20] VITALS: BP 166/94
--- NOTE | 2023-03-29 03:56 | NUR ---
SHIFT SUMMARY A/OX4 ROOM AIR. [facility] INFORMATION SECURITY CONSULTANT AT DOORWAY. MOTHER AT BEDSIDE. PRN PERCOCET GIVEN X1 THIS SHIFT. BENADRYL 25 MG ADDED PRN PER MECHANICAL DESIGN ENGINEER FACILITIES PROVIDER FOR ITCHING TO HANDS AND FACE. TRAZADONE 25 MG GIVEN LAST NIGHT A ONE TIME ORDER. PATIENT DID GO TO SLEEP AFTERWARDS. SCHEDULED ATIVAN GIVEN AT 0400 FOR ANXIETY. PATIENT WAS TEARFUL AT START OF SHIFT DUE TO ANXIETY AND ITCHING BUT CALMED DOWN THROUGH THE NIGHT. LEFT A BUT TRANSFERS INDEPENDELTY TO [facility], STILL PENDING STOOL SAMPLE FOR GI PANEL.
[2023-03-29 06:25] LABS: BASOPHILS ABSOLUTE AUTO 0.03 K/mm3 (0.00-0.23); BASOPHILS PERCENT AUTO 1 % (0-2); EOSINOPHILS ABSOLUTE AUTO 0.04 K/mm3 (0.00-0.68); EOSINOPHILS PERCENT AUTO 1 % (0-6); Hematocrit 23.9 % (33.0-51.0); Hemoglobin 7.8 g/dL (11.5-16.0); IMMATURE GRAN ABSOLUTE AUTO 0.01 K/mm3 (0.00-0.10); IMMATURE GRAN PERCENT AUTO 0 % (0-1); LYMPHOCYTES ABSOLUTE AUTO 1.38 K/mm3 (0.84-5.20); LYMPHOCYTES PERCENT AUTO 32 % (21-46); MONOCYTES PERCENT AUTO 9 % (4-13); Mean Corpuscular HGB 30.5 pg (26.0-34.0); Mean Corpuscular HGB Conc 32.6 g/dL (31.5-36.5); Mean Corpuscular Volume 93 fL (80-100); Mean Platelet Volume 10.6 fL (9.1-12.4); NEUTROPHILS ABSOLUTE AUTO 2.47 K/mm3 (1.96-9.15); NEUTROPHILS PERCENT AUTO 57 % (41-73); Platelet Count 228 K/mm3 (150-400); RDW Coefficient Variation 15.1 % (11.7-14.2); RDW Standard Deviation 52.4 fL (35.1-46.3); Red Blood Cell Count 2.56 M/mm3 (3.80-5.20); White Blood Cell Count 4.33 K/mm3 (4.00-11.30)
[2023-03-29 06:51] LABS: Albumin, Blood 1.7 g/dL (3.4-5.0); Albumin/Globulin Ratio 0.5 (0.8-1.8); Bilirubin, Total 0.2 mg/dL (0.1-1.0); Bun/Creatinine Ratio 17.7 (12.0-20.0); Calcium, Blood 7.2 mg/dL (8.5-10.1); Creatinine, Blood 2.31 mg/dL (0.40-1.00); Globulin, Blood 3.2 g/dL (2.2-4.0); Phosphorus, Blood 4.8 mg/dL (2.5-4.9); Potassium, Blood 4.7 mmol/L (3.5-5.5); Total Protein, Blood 4.9 g/dL (6.4-8.2)
[2023-03-29 07:20] VITALS: BP 167/94
--- NOTE | 2023-03-29 09:00 | NUR ---
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
--- NOTE | 2023-03-29 12:04 | NUR ---
pt a bit tearful, her scheduled ativan given, she is wanting to go home. call light in reach.
--- NOTE | 2023-03-29 14:45 | NUR ---
pt has been discharged to home, mom here to take her, iv removed intact from [facility], went over discharge instructins, she verbalized understanding, copy of s/s was given. new medication faxed to her pharmacy. left via wheelchair with mother and card decorator in attendence.
== END 2023-03-29 14:49 | disposition home or self-care (01) | DRG 698 ==
LOC: ER 19:01 → MEDS 23:26
PROVIDERS: Emergency Medicine; Family Medicine; Internal Medicine; Student in an Organized Health Care Education/Training Program; ADMIT Student in an Organized Health Care Education/Training Program
PROC: 30233N1 Transfusion of Nonautologous Red Blood Cells into Peripheral Vein, Percutaneous Approach (ICD-10-PCS; principal; 2023-03-24)
PROC: B24BZZZ Ultrasonography of Heart with Aorta (ICD-10-PCS; 2023-03-25)
DX: E10.22 Type 1 diabetes mellitus with diabetic chronic kidney disease (principal); I50.33 Acute on chronic diastolic (congestive) heart failure; J90 Pleural effusion, not elsewhere classified; E87.0 Hyperosmolality and hypernatremia; E87.20 Acidosis, unspecified; I31.39 Other pericardial effusion (noninflammatory); K22.10 Ulcer of esophagus without bleeding; N18.4 Chronic kidney disease, stage 4 (severe); E88.09 Other disorders of plasma-protein metabolism, not elsewhere classified; I27.20 Pulmonary hypertension, unspecified; D64.9 Anemia, unspecified; J44.9 Chronic obstructive pulmonary disease, unspecified; E10.51 Type 1 diabetes mellitus with diabetic peripheral angiopathy without gangrene; I11.0 Hypertensive heart disease with heart failure; K21.9 Gastro-esophageal reflux disease without esophagitis; F15.11 Other stimulant abuse, in remission; E87.70 Fluid overload, unspecified; E10.649 Type 1 diabetes mellitus with hypoglycemia without coma; R19.7 Diarrhea, unspecified; Z89.512 Acquired absence of left leg below knee; Z89.421 Acquired absence of other right toe(s); Z79.4 Long term (current) use of insulin; Z89.411 Acquired absence of right great toe; Z87.891 Personal history of nicotine dependence; Z88.5 Allergy status to narcotic agent; Z88.1 Allergy status to other antibiotic agents; Z86.19 Personal history of other infectious and parasitic diseases
CPT/HCPCS: 36415; 36430; 71046; 74176; 76770; 80053; 81001; 82010; 82043; 82270; 82570; 82803; 82947; 83605; 83690; 83735; 83880; 83935; 84100; 84145; 84156; 84300; 84443; 85025; 86850; 86900; 86901; 86923; 87040; 93005; 93010; 93306; 96361; 96365; 96366; 96367; 96375; 96376; 99285-25; A9270; C9113; J1815; J1940; J2270; J2405; J2543; J3010; J3370; J7030; J7050; J7120; P9016

== ENCOUNTER 2023-04-03 12:18 | Inpatient (IN) | payer OTHER ==
[~2023-04-03] VITALS: Ht 172.7 cm; Wt 83.6 kg
[2023-04-03 13:02] LABS: BASOPHILS ABSOLUTE AUTO 0.04 K/mm3 (0.00-0.23); BASOPHILS PERCENT AUTO 1 % (0-2); EOSINOPHILS ABSOLUTE AUTO 0.02 K/mm3 (0.00-0.68); EOSINOPHILS PERCENT AUTO 0 % (0-6); Hematocrit 32.4 % (33.0-51.0); Hemoglobin 10.9 g/dL (11.5-16.0); IMMATURE GRAN ABSOLUTE AUTO 0.02 K/mm3 (0.00-0.10); IMMATURE GRAN PERCENT AUTO 0 % (0-1); LYMPHOCYTES ABSOLUTE AUTO 1.23 K/mm3 (0.84-5.20); LYMPHOCYTES PERCENT AUTO 20 % (21-46); MONOCYTES ABSOLUTE AUTO 0.35 K/mm3 (0.16-1.47); MONOCYTES PERCENT AUTO 6 % (4-13); Mean Corpuscular HGB 30.3 pg (26.0-34.0); Mean Corpuscular HGB Conc 33.6 g/dL (31.5-36.5); Mean Corpuscular Volume 90 fL (80-100); Mean Platelet Volume 12.1 fL (9.1-12.4); NEUTROPHILS ABSOLUTE AUTO 4.66 K/mm3 (1.96-9.15); NEUTROPHILS PERCENT AUTO 74 % (41-73); Platelet Count 171 K/mm3 (150-400); RDW Coefficient Variation 14.1 % (11.7-14.2); RDW Standard Deviation 46.5 fL (35.1-46.3); White Blood Cell Count 6.32 K/mm3 (4.00-11.30)
[2023-04-03 13:50] LABS: Albumin, Blood 2.1 g/dL (3.4-5.0); Albumin/Globulin Ratio 0.5 (0.8-1.8); Bilirubin, Total 0.6 mg/dL (0.1-1.0); Bun/Creatinine Ratio 16.3 (12.0-20.0); Calcium, Blood 8.1 mg/dL (8.5-10.1); Creatinine, Blood 3.01 mg/dL (0.40-1.00); Globulin, Blood 3.9 g/dL (2.2-4.0); Potassium, Blood 4.9 mmol/L (3.5-5.5)
[2023-04-03 14:36] LABS: Bicarbonate Venous 14.2 mmol/L (24.0-30.0); PCO2 Venous 34.8 mmHg (38-42)
[2023-04-03 14:37] LABS: pH Blood Venous 7.21 (7.34-7.37)
[2023-04-03 16:20] LABS: Glucose, Blood 731 mg/dL (70-99)
[2023-04-03 16:54] VITALS: BP 164/96
[2023-04-03 18:12] LABS: Glucose, Blood 702 mg/dL (70-99)
--- NOTE | 2023-04-03 18:19 | NUR ---
ER ADMIT Patient alert & oriented x4, patient is able to stand pivot to bed from [facility]. CBGS >700, aware and instructed RN to given Lantus early & changed insulin to high SS. 15u Humulin & 20u Lantus given at 1730. IV lasix & albumin administred. Lab will come back at 2030 to redraw glucose. Patient complaining of flank pain, tylenol given for pain. BUE/face edematous. Patient denies difficulty seeing/breathing. Vitals stable, sats stable on RA. Telemetry in place. Will continue plan of care.
[2023-04-03 19:21] VITALS: BP 180/104
[2023-04-03 21:08] LABS: Bun/Creatinine Ratio 16.4 (12.0-20.0); Calcium, Blood 7.8 mg/dL (8.5-10.1); Creatinine, Blood 3.11 mg/dL (0.40-1.00); Potassium, Blood 4.5 mmol/L (3.5-5.5)
--- NOTE | 2023-04-03 21:08 | NUR ---
PT IN ROOM VISITING WITH FRIEND, FRIEND PUSHING PATIENT IN THE WHEELCHAIR, PT ADVISED TO NOT LEAVE DUE TO TELEMETRY, PT VERBALIZED UNDERSTANDING, STATES SHE IS GOING TO THE [place], PT STATES SHE WILL NOT GO OUTSIDE, PT DENIES ANY IGNITION RISK ACTIVITIES, PT EDUCATED THAT A PROLONGED ABSCENCE FROM THE ROOM WOULD CONSTITUTE A DISCHARGE AMA
--- NOTE | 2023-04-03 21:30 | NUR ---
PT RETURNED TO HER ROOM IN LESS THAN A HALF HOUR
--- NOTE | 2023-04-04 00:58 | NUR ---
LAB DRAW UNSUCCSESSFUL, MULTIPLE POKES, POWERGLIDE ATTEMPTED, WOULD NOT THREAD, PT ASKED FOR A BREAK FROM GETING POKED, WILL ASK ICU/PCU CHARGE TO ATTEMPT IF ABLE
--- NOTE | 2023-04-04 01:01 | NUR ---
PT ASKING TO GO FOR "AIR", FRIEND PUSHING HER IN THE WHEELCHAIR, ADVISED PT TO NOT LEAVE THE FLOOR DUE TO TELEMETRY, PT AND FRIEND DENIED ANY IGNITION RISK BEHAVIOURS, ADVISED PT OF NEED FOR LIMITED TIME AWAY FROM THE ROOM, PT AND FRIEND VERBALIZED UNDERSTANDING
[2023-04-04 02:59] LABS: Bun/Creatinine Ratio 16.4 (12.0-20.0); Calcium, Blood 7.7 mg/dL (8.5-10.1); Creatinine, Blood 3.3 mg/dL (0.40-1.00)
[2023-04-04 04:26] VITALS: BP 144/76
[2023-04-04 04:36] LABS: BASOPHILS ABSOLUTE AUTO 0.05 K/mm3 (0.00-0.23); BASOPHILS PERCENT AUTO 1 % (0-2); EOSINOPHILS ABSOLUTE AUTO 0.13 K/mm3 (0.00-0.68); EOSINOPHILS PERCENT AUTO 2 % (0-6); Hematocrit 20.8 % (33.0-51.0); Hemoglobin 7.2 g/dL (11.5-16.0); IMMATURE GRAN ABSOLUTE AUTO 0.02 K/mm3 (0.00-0.10); IMMATURE GRAN PERCENT AUTO 0 % (0-1); LYMPHOCYTES PERCENT AUTO 33 % (21-46); MONOCYTES ABSOLUTE AUTO 0.83 K/mm3 (0.16-1.47); MONOCYTES PERCENT AUTO 12 % (4-13); Mean Corpuscular HGB 30.1 pg (26.0-34.0); Mean Corpuscular HGB Conc 34.6 g/dL (31.5-36.5); Mean Corpuscular Volume 87 fL (80-100); Mean Platelet Volume 10.4 fL (9.1-12.4); NEUTROPHILS ABSOLUTE AUTO 3.61 K/mm3 (1.96-9.15); NEUTROPHILS PERCENT AUTO 52 % (41-73); Platelet Count 120 K/mm3 (150-400); RDW Coefficient Variation 13.9 % (11.7-14.2); RDW Standard Deviation 44.5 fL (35.1-46.3); Red Blood Cell Count 2.39 M/mm3 (3.80-5.20); White Blood Cell Count 6.94 K/mm3 (4.00-11.30)
[2023-04-04 05:07] LABS: Anion Gap 8 mmol/L (6-16); Blood Urea Nitrogen 52 mg/dL (8-24); Bun/Creatinine Ratio 15.9 (12.0-20.0); CO2, Blood 21 mmol/L (21-32); Calcium, Blood 7.7 mg/dL (8.5-10.1); Chloride, Blood 110 mmol/L (98-108); Creatinine, Blood 3.27 mg/dL (0.40-1.00); Glomerular Filtration Rate 17 (60-); Glucose, Blood 123 mg/dL (70-99); Phosphorus, Blood 5.1 mg/dL (2.5-4.9); Potassium, Blood 3.9 mmol/L (3.5-5.5); Sodium, Blood 139 mmol/L (136-145)
--- NOTE | 2023-04-04 05:27 | NUR ---
SUMMARY PT SITTING UP IN BED VISITING WITH HER FRIEND, PT HAS BEEN COOPERATIVE WITH CARE, UP INDEPENDENTLY IN THE ROOM WITH THE WALKER, PT HAS BEEN WHEELED OUT IN THE HALLS BY HER FRIEND, THEY HAVE BOTH BEEN EDUCATED ABOUT THE HOSPITAL'S NO SMOKING POLICY AND EDUCATED REGARDING IGNITION RISK, BOTH DENY ANY IGNITION RISK BEHAVIOR, PT EDUCATED MULTIPLE TIMES ABOUT LEAVING THE ROOM WITH TELEMETRY IN PLACE, PT VERBALIZED UNDERSTANDING, PT WITH MULTIPLE LAB DRAWS, VERY TEARFUL, POWERGLIDE PLACED, PT MED PER EMAR FOR PAIN AND NAUSEA, VSS, WILL CONT TO MONITOR
[2023-04-04 07:40] VITALS: BP 158/95
[2023-04-04 09:23] LABS: Bun/Creatinine Ratio 15.5 (12.0-20.0); Calcium, Blood 7.9 mg/dL (8.5-10.1); Creatinine, Blood 3.43 mg/dL (0.40-1.00); Potassium, Blood 4.1 mmol/L (3.5-5.5)
[2023-04-04 13:21] LABS: Bun/Creatinine Ratio 15.3 (12.0-20.0); Calcium, Blood 7.9 mg/dL (8.5-10.1); Creatinine, Blood 3.46 mg/dL (0.40-1.00); Potassium, Blood 3.9 mmol/L (3.5-5.5)
[2023-04-04 15:15] LABS: Source, Urine Clean Catch
[2023-04-04 16:15] LABS: Bilirubin, Urine Neg (Neg); Blood, Urine 4+ (Neg); Glucose Qualitative, Urine 2+ (Neg); Ketones, Urine Neg (Neg); Leukocyte Esterase, Urine Neg (Neg); Nitrite, Urine Neg (Neg); Protein, Urine 4+ (Neg); Specific Gravity, Urine 1.015 (1.003-1.022); Urobilinogen, Urine NORM (Normal); pH, Urine 6.5 (5.0-8.0)
[2023-04-04 16:27] VITALS: BP 170/96
--- NOTE | 2023-04-04 16:36 | NUR ---
DAYSHIFT SUMMARY Patient alert & oriented x4. Patient complaining of severe flank pain, PO tramadol & IV fentynal effective for pain. Tomographic Tech consulted, and ordered labs. Urine protein/creatine resulted. IV lasix, albumin administred. CBGs stable this shift, SS & carb counting insulin ordered. Vitals stable, will continue plan of care.
[2023-04-04 16:48] LABS: Appearance, Urine Hazy (Clear); Color, Urine Pale Yellow (P-Yellow)
[2023-04-04 16:49] LABS: Amorphous Light (0-Heavy); Bacteria Mod /hpf; Mucus Light (0-Heavy); Squamous Epithelial Cells Rare /hpf (Few); White Blood Cells, Urine 0-2 /hpf (0-5)
[2023-04-04 19:47] VITALS: BP 172/92
[2023-04-04 20:47] VITALS: BP 178/100
[2023-04-04 21:39] VITALS: BP 169/92
[2023-04-05 02:44] VITALS: BP 158/91
--- NOTE | 2023-04-05 04:01 | NUR ---
SHIFT SUMMARY PATIENT A/Ox4, PLEASANT/COOPERATIVE. C/O CHRONIC BACK PAIN, PAIN MANAGED PER JUL. INDEPENDANT IN ROOM WITH FWW TO BATHROOM. CONTINUES ON TELE, SR IN 80s. NO ACUTE CHANGES NOTED OVERNIGHT. BED LOCKED, CALL LIGHT WITHIN REACH.
[2023-04-05 07:04] LABS: Albumin, Blood 2.4 g/dL (3.4-5.0); Anion Gap 6 mmol/L (6-16); Blood Urea Nitrogen 53 mg/dL (8-24); Bun/Creatinine Ratio 15.4 (12.0-20.0); CO2, Blood 22 mmol/L (21-32); Calcium, Blood 7.6 mg/dL (8.5-10.1); Chloride, Blood 115 mmol/L (98-108); Creatinine, Blood 3.44 mg/dL (0.40-1.00); Glomerular Filtration Rate 16 (60-); Glucose, Blood 72 mg/dL (70-99); Iron Serum 56 ug/dL (50-170); Percent Saturation 29.6 % (15.0-50.0); Potassium, Blood 3.5 mmol/L (3.5-5.5); Sodium, Blood 143 mmol/L (136-145); Total Iron Binding Capacity 189 ug/dL (250-450)
[2023-04-05 07:09] VITALS: BP 161/95
[2023-04-05] MEDS ORDERED: BASAGLAR K100 UNIT/1 SC (16:53)
[2023-04-05 18:15] VITALS: BP 180/99
--- NOTE | 2023-04-05 18:36 | NUR ---
SUMMARY- PT A/O X4. INDEPENDANT TO BEDSIDE COMMODE- DIURESING PT, STATES SHE IS VOIDING LARGE AMOUNTS. VALIDATION ARCHITECT DID NOT MEASURE OUTPUT, INSTRUCTED SUBSEQUENT TO DO STRICT I/O. PT'S BLOOD SUGARS HAVE BEEN LOW ALL DAY. GIVEN JUICE AT EVERY LOW SUGAR. PT ALSO TOOK IN 100% ALL MEALS INCLUDING ALOT OF PROTIEN. LONG ACTING ADMIN THIS AM AND DR Manjit MARLOW AWARE OF LOW SUGARS AND THAT LONG ACTING GIVEN THIS AM. WILL CONT TO WILEY SUGARS Q4 AND PRN AND OFFERING SNACKS UNTIL SUGARS LEVEL OUT. MED REC UPDATED TO REFLECT CORRECT DOSING. PT FEELING POOR TODAY. WEAK, TEARFUL, BACK PAIN. MEDICATED WITH TYLENOL FOR HEADACHE. FENT IV Q4 FOR BACK PAIN, PT STATES HAS BEEN INEFFECTIVE. DR MARLOW AWARE AND ORDERED OXYCODONE 10/325 PRN. PT STATES PAIN RELEIF AFTER ADMINISTERED. WILL REPORT TO NOC TEETEE.
[2023-04-05 19:45] VITALS: BP 171/98
[2023-04-05 22:38] VITALS: BP 149/90
[2023-04-06 02:42] VITALS: BP 168/94
--- NOTE | 2023-04-06 04:00 | NUR ---
SHIFT SUMMARY PATIENT A/Ox4, PLEASANT AFFECT. ONGOING C/O CHRONIC BACK PAIN, PAIN MANAGED PER JUL. INDEPENDANT IN ROOM WITH FWW TO BSC. PATIENT AWARE OF 24HR URIN COLLECT, CALLS WHEN VOIDING. NO ACUTE CHANGES NOTED OVERNIGHT. BED LOCKED, CALL LIGHT WITHIN REACH.
[2023-04-06 06:12] LABS: Albumin, Blood 2.5 g/dL (3.4-5.0); Anion Gap 7 mmol/L (6-16); Blood Urea Nitrogen 52 mg/dL (8-24); Bun/Creatinine Ratio 13.9 (12.0-20.0); CO2, Blood 23 mmol/L (21-32); Calcium, Blood 7.7 mg/dL (8.5-10.1); Chloride, Blood 113 mmol/L (98-108); Creatinine, Blood 3.73 mg/dL (0.40-1.00); Glomerular Filtration Rate 15 (60-); Glucose, Blood 104 mg/dL (70-99); Phosphorus, Blood 5.4 mg/dL (2.5-4.9); Potassium, Blood 4.2 mmol/L (3.5-5.5); Sodium, Blood 143 mmol/L (136-145)
[2023-04-06 07:09] LABS: COMPLEMENT C3, SERUM 100 mg/dL (82-167); COMPLEMENT C4, SERUM 32 mg/dL (12-38)
[2023-04-06 07:45] VITALS: BP 164/105
--- NOTE | 2023-04-06 08:47 | NUR ---
ASSUMED CARE OF PT. PT REPORTS NAUSEA AND PAIN, ZOFRAN AND PERCOCET ADMINSTERED PRN.
[2023-04-06 09:09] LABS: HBSAG SCREEN Negative (Negative); HCV AB Non Reactive (Non Reactive); HEP B CORE AB, TOT Negative (Negative)
[2023-04-06 13:46] VITALS: BP 150/94
[2023-04-06 16:19] VITALS: BP 164/95
--- NOTE | 2023-04-06 17:27 | NUR ---
SHIFT SUMMARY PT A&OX4 AND CALLS APPROPRIATELY. PT ON STRICT I&OS. B/P ELEVATED AND BEING TREATED PER EMAR. PT BLOOD SUGARS TRENDING LOW AND BEING MONITORED. NO ACUTE EVENTS DURING SHIFT. PT LEFT IN A POSITION OF SAFETY WITH BED LOCKED AND IN LOWEST POSITION, ROOM CLEAR OF DEBRIS, AND CALL LIGHT WITHIN REACH.
[2023-04-06 20:01] VITALS: BP 174/100
[2023-04-06 23:13] VITALS: BP 168/91
[2023-04-07 02:58] VITALS: BP 177/98
[2023-04-07 06:23] VITALS: BP 186/98
[2023-04-07 07:16] LABS: Albumin, Blood 2.7 g/dL (3.4-5.0); Anion Gap 5 mmol/L (6-16); Blood Urea Nitrogen 46 mg/dL (8-24); Bun/Creatinine Ratio 12.9 (12.0-20.0); CO2, Blood 25 mmol/L (21-32); Calcium, Blood 7.6 mg/dL (8.5-10.1); Chloride, Blood 111 mmol/L (98-108); Creatinine, Blood 3.57 mg/dL (0.40-1.00); Glomerular Filtration Rate 15 (60-); Glucose, Blood 300 mg/dL (70-99); Phosphorus, Blood 4.6 mg/dL (2.5-4.9); Potassium, Blood 4.5 mmol/L (3.5-5.5); Sodium, Blood 141 mmol/L (136-145)
[2023-04-07 07:51] VITALS: BP 154/88
--- NOTE | 2023-04-07 08:27 | NUR ---
SHIFT SUMMARY PT A/OX4. ROOM AIR. ANXIOUS AND TEARFUL OCCASIONALLY THROUGH NIGHT. PRN ZOFRAN GIVEN X1. PRN NORCO GIVEN X2 AND PRN FENTANYL GIVEN X1 WITH LITTLE TO NO RELIEF. HYDRALAZINE GIVEN THIS MORNING FOR BLOOD PRESSURE >160. SWELLING TO ABDOMEN AND BILATERAL LE. 24 HOUR URINE COMPLETED. CALLS APPROPRIATELY. CALL LIGHT IN REACH. ABLE TO TRANSFER TO BSC INDEPENDENTLY. I PERSON ASSIST WITH WALKER.
[2023-04-07] MEDS ORDERED: DULO30 PO (10:23)
[2023-04-07] MEDS ORDERED: FURO40 PO (10:23)
[2023-04-07] MEDS ORDERED: GABA100 PO (10:23)
[2023-04-07] MEDS ORDERED: PERCOCET 10-321 EA13 PO (10:24)
[2023-04-07] MEDS ORDERED: SODBIC650 PO (10:25)
[2023-04-07] MEDS ORDERED: TRAZ50 PO (10:25)
--- NOTE | 2023-04-07 11:41 | NUR ---
DISCHARGE NOTE: DISCHARGE PAPERWORK DISCUSSED WITH PATIENT. PATIENT SIGNS D/C FORM WITHOUT ANY FURTHER QUESTIONS OR CONCERNS. POWERGLIDE WAS REMOVED. SHE HAD A FRIEND GATO WITH HER PRESENT THAT HELPED COLLECT HER BELONGINGS. PATIENT WAS MEDICATED ORALLY FOR PAIN PRIOR TO DISCHARGE. SHE WAS WHEELED OUT VIA WHEELCHAIR BY THE SHAFT SINKER AND WAS PICKED UP FROM THE EXIT BY HER FRIEND GATO.
[2023-04-07 14:09] LABS: ALBUMIN 2.2 g/dL (2.9-4.4); ALPHA-1-GLOBULIN 0.2 g/dL (0.0-0.4); ALPHA-2-GLOBULIN 0.5 g/dL (0.4-1.0); BETA GLOBULIN 0.7 g/dL (0.7-1.3); GAMMA GLOBULIN 0.7 g/dL (0.4-1.8); GLOBULIN, TOTAL 2.1 g/dL (2.2-3.9); M-SPIKE Not Observed g/dL (Not Observed); PROTEIN, TOTAL, SERUM 4.3 g/dL (6.0-8.5)
== END 2023-04-07 10:53 | disposition home or self-care (01) | DRG 683 ==
LOC: ER 12:18 → ERHOLD 12:19 → MEDS 16:42
PROVIDERS: Emergency Medicine; Family Medicine; Hospitalist; Physician Assistant; ADMIT Internal Medicine
DX: N17.9 Acute kidney failure, unspecified (principal); E87.20 Acidosis, unspecified; E87.70 Fluid overload, unspecified; N18.4 Chronic kidney disease, stage 4 (severe); F41.9 Anxiety disorder, unspecified; E10.22 Type 1 diabetes mellitus with diabetic chronic kidney disease; E10.649 Type 1 diabetes mellitus with hypoglycemia without coma; I12.9 Hypertensive chronic kidney disease with stage 1 through stage 4 chronic kidney disease, or unspecified chronic kidney disease; K21.9 Gastro-esophageal reflux disease without esophagitis; E10.40 Type 1 diabetes mellitus with diabetic neuropathy, unspecified; G40.909 Epilepsy, unspecified, not intractable, without status epilepticus; F32.A Depression, unspecified; J44.9 Chronic obstructive pulmonary disease, unspecified; E10.65 Type 1 diabetes mellitus with hyperglycemia; E10.51 Type 1 diabetes mellitus with diabetic peripheral angiopathy without gangrene; F12.90 Cannabis use, unspecified, uncomplicated; D63.1 Anemia in chronic kidney disease; Z88.5 Allergy status to narcotic agent; Z79.899 Other long term (current) drug therapy; Z79.4 Long term (current) use of insulin; Z88.1 Allergy status to other antibiotic agents; Z91.148 Patient's other noncompliance with medication regimen for other reason; Z90.49 Acquired absence of other specified parts of digestive tract; Z98.890 Other specified postprocedural states; Z86.14 Personal history of Methicillin resistant Staphylococcus aureus infection; Z87.19 Personal history of other diseases of the digestive system; Z90.710 Acquired absence of both cervix and uterus; Z89.512 Acquired absence of left leg below knee; Z79.01 Long term (current) use of anticoagulants; Z89.421 Acquired absence of other right toe(s); Z87.891 Personal history of nicotine dependence
CPT/HCPCS: 36415; 71046; 76770; 80048; 80053; 80069; 81001; 82010; 82570; 82803; 82947; 83540; 83550; 83690; 83880; 83930; 84156; 85025; 87086; 93005; 93010; 96374; 97161; 97530; 99285-25; A9270; J0360; J1644; J1815; J1940; J2405; J3010; P9047; Q5106

== ENCOUNTER 2023-04-22 10:26 | Emergency (ER) | payer OTHER ==
[~2023-04-22] VITALS: Ht 172.7 cm; Wt 59.0 kg
[~2023-04-22 10:26] MED LIST changes: +FURO40 PO; +PERCOCET 10-321 EA13 PO; +SODBIC650 PO
[2023-04-22 11:28] LABS: BASOPHILS ABSOLUTE AUTO 0.03 K/mm3 (0.00-0.23); BASOPHILS PERCENT AUTO 0 % (0-2); EOSINOPHILS ABSOLUTE AUTO 0.11 K/mm3 (0.00-0.68); EOSINOPHILS PERCENT AUTO 1 % (0-6); Hematocrit 25.4 % (33.0-51.0); Hemoglobin 8.3 g/dL (11.5-16.0); IMMATURE GRAN ABSOLUTE AUTO 0.03 K/mm3 (0.00-0.10); IMMATURE GRAN PERCENT AUTO 0 % (0-1); LYMPHOCYTES ABSOLUTE AUTO 1.48 K/mm3 (0.84-5.20); LYMPHOCYTES PERCENT AUTO 17 % (21-46); MONOCYTES ABSOLUTE AUTO 0.88 K/mm3 (0.16-1.47); MONOCYTES PERCENT AUTO 10 % (4-13); Mean Corpuscular HGB Conc 32.7 g/dL (31.5-36.5); Mean Corpuscular Volume 92 fL (80-100); Mean Platelet Volume 10.9 fL (9.1-12.4); NEUTROPHILS ABSOLUTE AUTO 6.01 K/mm3 (1.96-9.15); NEUTROPHILS PERCENT AUTO 70 % (41-73); Platelet Count 199 K/mm3 (150-400); RDW Coefficient Variation 14.5 % (11.7-14.2); RDW Standard Deviation 48.9 fL (35.1-46.3); Red Blood Cell Count 2.77 M/mm3 (3.80-5.20); White Blood Cell Count 8.54 K/mm3 (4.00-11.30)
[2023-04-22 12:05] LABS: Albumin, Blood 2.1 g/dL (3.4-5.0); Albumin/Globulin Ratio 0.6 (0.8-1.8); Bilirubin, Total 0.3 mg/dL (0.1-1.0); Bun/Creatinine Ratio 13.1 (12.0-20.0); Creatinine, Blood 3.5 mg/dL (0.40-1.00); Globulin, Blood 3.5 g/dL (2.2-4.0); Potassium, Blood 4.2 mmol/L (3.5-5.5); Total Protein, Blood 5.6 g/dL (6.4-8.2)
[2023-04-22 13:44] VITALS: BP 184/110
== END 2023-04-22 13:48 | disposition home or self-care (01) ==
LOC: ER 10:26
PROVIDERS: Emergency Medicine
DX: I12.9 Hypertensive chronic kidney disease with stage 1 through stage 4 chronic kidney disease, or unspecified chronic kidney disease (principal); E10.22 Type 1 diabetes mellitus with diabetic chronic kidney disease; N18.4 Chronic kidney disease, stage 4 (severe); R60.1 Generalized edema; D63.1 Anemia in chronic kidney disease; M54.9 Dorsalgia, unspecified; Z88.5 Allergy status to narcotic agent; J44.9 Chronic obstructive pulmonary disease, unspecified; Z87.891 Personal history of nicotine dependence
CPT/HCPCS: 71046; 80053; 83880; 85025; 96374; 96375; 99285-25; J2270; J2405

== ENCOUNTER 2023-05-08 11:47 | Inpatient (IN) | payer OTHER ==
[~2023-05-08] VITALS: Ht 172.7 cm; Wt 82.5 kg
[2023-05-08] MEDS ORDERED: TRAZ100 PO (12:04)
[2023-05-08] MEDS ORDERED: ONDA4 (12:04)
[2023-05-08 13:08] LABS: BASOPHILS ABSOLUTE AUTO 0.04 K/mm3 (0.00-0.23); BASOPHILS PERCENT AUTO 1 % (0-2); EOSINOPHILS ABSOLUTE AUTO 0.13 K/mm3 (0.00-0.68); EOSINOPHILS PERCENT AUTO 3 % (0-6); Hematocrit 20.8 % (33.0-51.0); Hemoglobin 6.6 g/dL (11.5-16.0); IMMATURE GRAN ABSOLUTE AUTO 0.01 K/mm3 (0.00-0.10); IMMATURE GRAN PERCENT AUTO 0 % (0-1); LYMPHOCYTES ABSOLUTE AUTO 1.42 K/mm3 (0.84-5.20); LYMPHOCYTES PERCENT AUTO 28 % (21-46); MONOCYTES ABSOLUTE AUTO 0.46 K/mm3 (0.16-1.47); MONOCYTES PERCENT AUTO 9 % (4-13); Mean Corpuscular HGB 29.6 pg (26.0-34.0); Mean Corpuscular HGB Conc 31.7 g/dL (31.5-36.5); Mean Corpuscular Volume 93 fL (80-100); Mean Platelet Volume 11.1 fL (9.1-12.4); NEUTROPHILS PERCENT AUTO 60 % (41-73); Platelet Count 272 K/mm3 (150-400); RDW Coefficient Variation 14.3 % (11.7-14.2); RDW Standard Deviation 47.7 fL (35.1-46.3); Red Blood Cell Count 2.23 M/mm3 (3.80-5.20); White Blood Cell Count 5.16 K/mm3 (4.00-11.30)
[2023-05-08 13:12] LABS: Base Excess Venous -6.5 mmol/L; Bicarbonate Venous 19.4 mmol/L (24.0-30.0); PCO2 Venous 45.3 mmHg (38-42)
[2023-05-08 13:13] LABS: pH Blood Venous 7.26 (7.34-7.37)
[2023-05-08 13:20] LABS: Albumin, Blood 2.4 g/dL (3.4-5.0); Albumin/Globulin Ratio 0.7 (0.8-1.8); Beta-hydroxybutyrate 1.1 mg/dL (0.2-2.8); Bilirubin, Total 0.2 mg/dL (0.1-1.0); Bun/Creatinine Ratio 10.2 (12.0-20.0); Calcium, Blood 7.9 mg/dL (8.5-10.1); Creatinine, Blood 4.51 mg/dL (0.40-1.00); Globulin, Blood 3.6 g/dL (2.2-4.0); Magnesium, Blood 1.9 mg/dL (1.6-2.4); Potassium, Blood 5.6 mmol/L (3.5-5.5)
[2023-05-08 16:29] LABS: Percent Saturation 23.4 % (15.0-50.0)
[2023-05-08] MEDS ORDERED: SPIR25 (16:47)
[2023-05-08] MEDS ORDERED: METO5A PO (16:48)
[2023-05-08] MEDS ORDERED: ADMELOG100 UNIT/2 (16:49)
[2023-05-08] MEDS ORDERED: HYDHCL25 (16:49)
[2023-05-08] MEDS ORDERED: HYDRA50 PO (16:50)
[2023-05-08] MEDS ORDERED: FAMO40 PO (16:50)
[2023-05-08] MEDS ORDERED: ALBU90OI INH (16:51)
[2023-05-08] MEDS ORDERED: BUPRENORPHINE HC2 M1 SL (16:51)
[2023-05-08 17:26] VITALS: BP 149/127
--- NOTE | 2023-05-08 18:09 | NUR ---
Pt arrived to PCU 17. Alert, oriented x 4. States that she is really hungry. CBG 163. Coverage per orders and food and drink provided. She is sitting up in bed, states chronic neck pain. Forgetful of medical history, often correcting herself and commenting that she is having some trouble remembering things. Does not remember that she got pain medication in ED, and also had some trouble recalling personal history, such as that she had ovarian cancer, and that she is still a current every day smoker. She denies having any combustable items in her belongings with her in the room. Blood transfusion was started @ approx 1800. She is eating her dinner tray from the kitchen at this time. Warm blankets given for c/o feeling cold, as well as hot broth.
[2023-05-08 18:32] VITALS: BP 141/85
--- NOTE | 2023-05-08 18:34 | NUR ---
No s/s transfusion reaction after the first 15 minutes of PRBC infusion. Pt is sitting up in bed, has finished her dinner tray.
[2023-05-08 19:38] VITALS: BP 134/80
[2023-05-08 20:30] VITALS: BP 157/97
--- NOTE | 2023-05-08 22:03 | NUR ---
UPDATE MD NOTIFIED OF PT'S LOW CBG. HOLDING OFF ON LONG ACTING INSULING D/T LOW BLOOD SUGAR. PT ABLE TO TOLERATE PO AT THIS TIME. PT ATE SANDWICH, CHEESE AND YOGURT. BLOOD SUGAR UP TO 70. WILL RECHECK IN 1 HR. ORDERS FOR REPEAT H&H AT 1030. VSS. CALL LIGHT WITHIN REACH.
[2023-05-08 22:39] LABS: Hematocrit 23.1 % (33.0-51.0); Hemoglobin 7.5 g/dL (11.5-16.0)
[2023-05-08 23:36] VITALS: BP 162/93
--- NOTE | 2023-05-08 23:56 | NUR ---
REPORT TO TEETEE PEREZ TO ASSUME CARE
--- NOTE | 2023-05-08 23:57 | NUR ---
ASSUMED CARE REPORT TAKEN FROM TONY RN, THIS RN TO ASSUME CARE OF PT AT THIS TIME. PT A&OX4, RESTLESS AND AGITATED. SITTING UP IN BED W/ ARMS CROSSED, ROCKING BACK AND FORTH. PT DENIES PAIN AT THIS TIME, STATES "I JUST DON'T FEEL GOOD." PT AGREEABLE TO REPEAT CBG CHECK, 73; DECLINES ADDITIONAL PO INTAKE. VSS. NO OTHER NEEDS AT THIS TIME. CALL LIGHT WITHIN REACH.
[2023-05-09] VITALS (8 sets, daily range): BP systolic 154–191; BP diastolic 62–115
--- NOTE | 2023-05-09 00:20 | NUR ---
PHYSICIAN CONTACT CALL PLACED TO PHYSICIAN REGARDING PT'S AGITATION/RESTLESSNESS. PER PT'S MED REC, PT TAKES TRAZODONE AND ATARAX AT BASELINE. PT IS AGREEABLE TO TAKING PO MEDICATION LONG IT IS HER NORMAL MEDICATION. ORDER RECEIVED FOR TRAZODONE 50MG PO, WILL ADMINISTER PER EMAR.
--- NOTE | 2023-05-09 04:44 | NUR ---
LAB/MEDICATION REFUSAL PT'S BLOOD PRESSURE 184/104 THIS AM. CALL PLACED TO PHYSICIAN, ORDERS RECEIVED FOR 10MG HYDRALAZINE IV NOW. THIS RN TO PT'S ROOM TO ADMINISTER MEDICATION. PT STATES "I JUST WANT TO BE LEFT ALONE, I DON'T WANT TO BE HERE ANYMORE." THIS RN EDUCATED PT ON IMPORTANCE OF MEDICATION BUT PT CONTINUED TO REFUSE. PT STATES "WOULD YOU JUST LEAVE ME ALONE AND STOP MAKING COMMENTS FROM THE PEANUT GALLERY." THIS RN ADVISED PT THAT THE MEDICATION WOULD NOT BE ADMINISTERED PER HER REFUSAL, PT STATES "STOP PUTTING WORDS INTO MY MOUTH AND GIVE ME SOME PRIVACY." IMMIGRATION CONSULTANT NOTIFIED. OFFERED MEDICATION TO PT AGAIN W/ EDUCATION AT APPROX 0440, PT CONTINUED TO REFUSE. PT REFUSED AM LABS STATING "WOULD YOU GUYS JUST LEAVE ME ALONE AND LET ME WAKE UP." CNC ROUTER OPERATOR BACK TO ROOM APPROX 10MIN LATER AFTER PT ADVISED THIS RN THAT SHE WOULD ALLOW A LAB DRAW. LAB UNABLE TO OBTAIN BLOOD, WILL REATTEMPT AROUND 0800 IF PT ALLOWS.
--- NOTE | 2023-05-09 05:22 | NUR ---
END OF SHIFT NOTE: PT REMAINS A&OX4, IRRITABLE AND WITHDRAWN. TEARFUL AT TIMES. HOME DOSE OF TRAZODONE ORDERED, PT ABLE TO REST OVERNIGHT FOLLOWING ADMINISTRATION. HR 80'S, SINUS RHYTHM ON TELE. BP ELEVATED, SEE PREVIOUS NOTE REGARDING CALL TO PHYSICIAN/ORDERS/PT REFUSAL OF MEDICATION. SPO2 >95% ON RA, DENIES SOB. AFEBRILE. CBG REMAINS STABLE. INDEPENDENTLY REPOSITIONING SELF T/O NIGHT. 1P ASSIST TO BATHROOM USING WHEELCHAIR. CONTINENT. C/O CHRONIC NECK PAIN, MANAGED W/ TYLENOL PER EMAR. NO OTHER EVENTS. CALL LIGHT WITHIN REACH, BED IN LOWEST POSITION. WILL REPORT TO ONCOMING RN.
--- NOTE | 2023-05-09 11:36 | NUR ---
UPDATE PT CONTINUES TO COMPLAIN OF NAUSEA. FAN BROUGHT IN REQUESTED. DR. DANIELSON CALLED FOR NAUSEA MEDICATION. NEW ORDERS RECEIVED AND PT MEDICATED PER ORDERS. PT HAD REFUSED LAB DRAWS THIS AM BECAUSE MULTIPLE STAFF HAD TO ATTEMPT DRAW. POWERGLIDE PLACED BY REPAIR OPERATOR AND WILL DRAW LABS FROM LINE. WILL CONTINUE TO MONITOR CLOSELY
[2023-05-09 12:00] LABS: BASOPHILS ABSOLUTE AUTO 0.04 K/mm3 (0.00-0.23); BASOPHILS PERCENT AUTO 1 % (0-2); EOSINOPHILS PERCENT AUTO 1 % (0-6); Hemoglobin 8.3 g/dL (11.5-16.0); IMMATURE GRAN ABSOLUTE AUTO 0.04 K/mm3 (0.00-0.10); IMMATURE GRAN PERCENT AUTO 1 % (0-1); LYMPHOCYTES ABSOLUTE AUTO 1.81 K/mm3 (0.84-5.20); LYMPHOCYTES PERCENT AUTO 25 % (21-46); MONOCYTES ABSOLUTE AUTO 0.53 K/mm3 (0.16-1.47); MONOCYTES PERCENT AUTO 7 % (4-13); Mean Corpuscular HGB 30.1 pg (26.0-34.0); Mean Corpuscular HGB Conc 33.2 g/dL (31.5-36.5); Mean Corpuscular Volume 91 fL (80-100); Mean Platelet Volume 10.5 fL (9.1-12.4); NEUTROPHILS ABSOLUTE AUTO 4.78 K/mm3 (1.96-9.15); NEUTROPHILS PERCENT AUTO 66 % (41-73); Platelet Count 271 K/mm3 (150-400); RDW Coefficient Variation 14.8 % (11.7-14.2); RDW Standard Deviation 49.4 fL (35.1-46.3); Red Blood Cell Count 2.76 M/mm3 (3.80-5.20)
[2023-05-09 12:26] LABS: Albumin, Blood 2.3 g/dL (3.4-5.0); Anion Gap 5 mmol/L (6-16); Blood Urea Nitrogen 51 mg/dL (8-24); Bun/Creatinine Ratio 11.2 (12.0-20.0); CO2, Blood 21 mmol/L (21-32); Calcium, Blood 8.2 mg/dL (8.5-10.1); Chloride, Blood 112 mmol/L (98-108); Creatinine, Blood 4.55 mg/dL (0.40-1.00); Glomerular Filtration Rate 12 (60-); Glucose, Blood 172 mg/dL (70-99); Iron Serum 45 ug/dL (50-170); Percent Saturation 21.3 % (15.0-50.0); Phosphorus, Blood 5.5 mg/dL (2.5-4.9); Potassium, Blood 5.1 mmol/L (3.5-5.5); Sodium, Blood 138 mmol/L (136-145); Total Iron Binding Capacity 211 ug/dL (250-450)
--- NOTE | 2023-05-09 17:30 | NUR ---
SHIFT SUMMARY PT REMAINS ALERT AND ORIENTED. BP ELEVATED AGAIN THIS EVENING. PT IN PAIN WHILE TAKING BP. PT MEDICATED FOR PAIN. PT ABLE TO TRANSFER HERSELF TO THE BATHROOM WITH MINIMAL ASSISTANCE AND FWW. PT STATES NAUSEA HAS RESOLVED THIS EVENING. PT REPOSITIONING HERSELF IN THE BED. WILL CONTINUE TO MONITOR AND REPORT TO ONCOMING TEETEE
--- NOTE | 2023-05-09 19:45 | NUR ---
ASSUMED PT CARE FROM RN ON DAYSHI. PT RESTING IN BED WITH EYES CLOSED, DOES NOT APPEAR TO BE SLEEPING DUE TO FREQUENT MOVEMENT IN BED. PT TEARFUL, CRYING OUT "OUCH", WHEN ASKED WHAT WAS CAUSING HER PAIN SHE STATES "MY FOOT, THE ONE THAT ISN'T THERE". TYLENOL OFFERED BUT DECLINES AT THIS TIME. HR SR IN 90'S. NO COMPLAINTS OF CHEST PAIN AT THIS TIME. RESPIRATIONS EVEN AND UNLABORED WITH SATS < 90% ON RA. AFEBRILE. PER REPORT PT UP TO BATHROOM INDEPENDENTLY, USING WC/FWW AT BAELINE PER PT. PT INSTRUCTED TO USE CALL LIGHT IF SHE IS FEELING DIZZIE OR WEAK. DENIES NEEDS AT THIS TIME. CALL LIGHT IN REACH. BED IN LOW POSITION.
--- NOTE | 2023-05-09 21:44 | NUR ---
PT UP TO BATHROOM, CRAWLING TO BATHROOM ON KNEES. REFUSING ALL ASSISTANCE AT THIS TIME. APPEARS STABLE, NO USING HANDS TO STABILIZE. WILL CONTINUE TO OFFERE ASSISTANCE. REQUESTING FENTYNAL. EDUCATED ON PT CONTROL, OFFERED TYLENOL BEFORE FENTYNAL. PT IN AGREEMENT AT THIS TIME. LEFT SPEEKING ON THE PHONE. CALL LIGHT IN REACH. BED IN LOW POSITION.
[2023-05-10 05:18] VITALS: BP 147/93
[2023-05-10 05:42] LABS: BASOPHILS ABSOLUTE AUTO 0.04 K/mm3 (0.00-0.23); BASOPHILS PERCENT AUTO 1 % (0-2); EOSINOPHILS ABSOLUTE AUTO 0.09 K/mm3 (0.00-0.68); EOSINOPHILS PERCENT AUTO 2 % (0-6); Hemoglobin 8.2 g/dL (11.5-16.0); IMMATURE GRAN ABSOLUTE AUTO 0.03 K/mm3 (0.00-0.10); IMMATURE GRAN PERCENT AUTO 1 % (0-1); LYMPHOCYTES ABSOLUTE AUTO 1.97 K/mm3 (0.84-5.20); LYMPHOCYTES PERCENT AUTO 36 % (21-46); MONOCYTES ABSOLUTE AUTO 0.47 K/mm3 (0.16-1.47); MONOCYTES PERCENT AUTO 9 % (4-13); Mean Corpuscular HGB 29.2 pg (26.0-34.0); Mean Corpuscular HGB Conc 32.8 g/dL (31.5-36.5); Mean Corpuscular Volume 89 fL (80-100); NEUTROPHILS ABSOLUTE AUTO 2.87 K/mm3 (1.96-9.15); NEUTROPHILS PERCENT AUTO 53 % (41-73); Platelet Count 266 K/mm3 (150-400); RDW Coefficient Variation 14.3 % (11.7-14.2); RDW Standard Deviation 46.5 fL (35.1-46.3); Red Blood Cell Count 2.81 M/mm3 (3.80-5.20); White Blood Cell Count 5.47 K/mm3 (4.00-11.30)
[2023-05-10 05:58] LABS: International Normalized Ratio 0.93; Prothrombin Time Results 9.8 Sec (9.7-11.5)
--- NOTE | 2023-05-10 06:01 | NUR ---
SHIFT SUMMARY: PT CONTINUING TO REFUSE ASSITANCE TO BATHROOM THROUGHOUT SHIFT. BP'S IMPROVING, SEE PT RECORD. MEDICATED FOR PAIN IN LEFT LEG WITH PO AND IV PRN PAIN MEDS, SEE EMAR. PT SLEEPING FOR LONG STRETCHES THIS A.M. NO ACUTE CHANGES NOTED IN CONDITION. CALL LIGHT IN RECH. BED IN LOW POSITION.
[2023-05-10 06:06] LABS: Albumin, Blood 1.9 g/dL (3.4-5.0); Anion Gap 5 mmol/L (6-16); Blood Urea Nitrogen 46 mg/dL (8-24); Bun/Creatinine Ratio 10.3 (12.0-20.0); CO2, Blood 20 mmol/L (21-32); Calcium, Blood 7.9 mg/dL (8.5-10.1); Chloride, Blood 114 mmol/L (98-108); Creatinine, Blood 4.45 mg/dL (0.40-1.00); Ferritin, Serum 209 ng/mL (8-252); Glomerular Filtration Rate 12 (60-); Glucose, Blood 106 mg/dL (70-99); Phosphorus, Blood 4.9 mg/dL (2.5-4.9); Potassium, Blood 4.5 mmol/L (3.5-5.5); Sodium, Blood 139 mmol/L (136-145)
[2023-05-10 07:53] VITALS: BP 151/85
[2023-05-10 10:55] VITALS: BP 155/94
[2023-05-10 16:10] VITALS: BP 137/81
--- NOTE | 2023-05-10 17:32 | NUR ---
SHIFT SUMMARY PT REMAINS ALERT AND ORIENTED. BP STABLE THIS SHIFT. HR REMAINS NSR. O2 SATS >90% ON RA. PT COMPLAINS OF PAIN THIS SHIFT AND NEW ORDERS FOR PAIN MEDICATION THIS AFTERNOON. PT REPOSITIONING HERSELF IN THE BED INDEPENDENTLY. PT ABLE TO TRANSFER TO THE BATHROOM NEEDED TO VOID WITH SBA AND FWW. PT REQUESTING TO BE LEFT ALONE MOST OF THE SHIFT AND THE LIGHTS OFF. WILL CONTINUE TO MONITOR AND REPORT TO ONCDIEGO KINGSLEY
[2023-05-10 20:23] VITALS: BP 142/87
--- NOTE | 2023-05-10 20:58 | NUR ---
ASSUMED PT CARE FROM RN ON DAYSHI. PT TEARFUL, STATING SHE IS ANXIOUS ABOUT HER PROCEDURE TOMORROW. PT CONSOLED, EDUCATION GIVEN ON PROCEDURE IN A.M. PT RELAXED STATING, "I DIDN'T REALIZE THAT WAS WHAT WAS HAPPENING" WILL REINFORCE. COMPLAINING OF PAIN IN BACK 02/08, MEDICATED WITH PRN PAIN MEDS, SEE EMAR. REPORTS DIFFICULTY BREATHING WHEN TEARFUL. AFTER CALMING DOWN RESPIRATIONS EVEN AND UNLABORED. 02 SATS IN HIGH 90% THROGUHOUT. HR SR IN 90'S%. BP STABLE, SEE PT RECORD. UP TO BATHROOM, CRAWLING ON KNEES, BALANCE GOOD, DOES NOT NEED HANDS TO STABILIZE. DECLINING OFFER FOR HELP. BSC POSITIONED AT BEDSIDE AT PT REQUEST. INSTRUCTED TO CALL FOR ASSISTANCE IF NEEDED. INSTRUCTED PT MUST BE NPO AT [place] FOR PROCEDURE. PT STATES UNDERSTANDING. LEFT RESTING IN BED, CALL LIGHT IN EACH, BED IN LOW POSITION.
[2023-05-11] VITALS (7 sets, daily range): BP systolic 135–159; BP diastolic 68–97
[2023-05-11 05:31] LABS: International Normalized Ratio 0.93; Prothrombin Time Results 9.8 Sec (9.7-11.5)
[2023-05-11 05:48] LABS: Albumin, Blood 1.9 g/dL (3.4-5.0); Anion Gap 6 mmol/L (6-16); Blood Urea Nitrogen 40 mg/dL (8-24); Bun/Creatinine Ratio 9.2 (12.0-20.0); CO2, Blood 22 mmol/L (21-32); Calcium, Blood 8.3 mg/dL (8.5-10.1); Chloride, Blood 113 mmol/L (98-108); Creatinine, Blood 4.33 mg/dL (0.40-1.00); Glomerular Filtration Rate 12 (60-); Glucose, Blood 89 mg/dL (70-99); Phosphorus, Blood 4.6 mg/dL (2.5-4.9); Potassium, Blood 3.8 mmol/L (3.5-5.5); Sodium, Blood 141 mmol/L (136-145)
--- NOTE | 2023-05-11 06:39 | NUR ---
SHIFT SUMMARY: PT MADE NPO AT PA. COMPLIANT WITH NPO STATUES AND IN AGREEMENT FOR PROCEDURE. PT RESTING COMFORTABLY WITH EYES CLOSE MAJORITY OF NIGHT. NO ACUTE CHANGES NOTED. VITAL SIGNS RECORDED IN CHART. CALL LIGHT IN REACH. BED IN LOW POSITION.
--- NOTE | 2023-05-11 14:18 | NUR ---
PT TAKEN DOWN TO HEART CENTER FOR DIALYSIS CATH PLACEMENT. AFTER PATIENT TAKEN OUT OF ROOM, A VAPE PEN WAS FOUND ON PATIENT'S PERSONAL WHEELCHAIR. VAPE LOCKED UP AND WILL REEDUCATE PATIENT ABOUT OUR POLICY ON IGNITION SOURCES. WILL AWAIT RETURN
[2023-05-11 15:36] LABS: HEPATITIS B SURFACE ANTIGEN Negative (Negative)
--- NOTE | 2023-05-11 15:50 | NUR ---
UPDATE PT RETURNED FROM THE HEART CENTER AWAKE AND ALERT. VS STABLE. DIALYSIS PORT TO RIGHT CHEST WALL WITH CHG DRESSING IN PLACE. PT COMPLAINING OF PAIN. DR. CASTREJON CALLED AND NEW ORDERS RECEIVED. WILL MEDICATE PER EMAR.
--- NOTE | 2023-05-11 17:30 | NUR ---
UPDATE PT TO BE MOVED TO MEDICAL FLOOR. REPORT GIVEN TO MEDICAL FLOOR RN. PT TAKEN UP WITH ALL OF HER BELONGINGS INCLUDING HER PERSONAL WC
[2023-05-12] VITALS (14 sets, daily range): BP systolic 134–170; BP diastolic 76–93
[2023-05-12 06:44] LABS: Albumin, Blood 2.1 g/dL (3.4-5.0); Anion Gap 4 mmol/L (6-16); Blood Urea Nitrogen 42 mg/dL (8-24); Bun/Creatinine Ratio 9.5 (12.0-20.0); CO2, Blood 23 mmol/L (21-32); Calcium, Blood 7.7 mg/dL (8.5-10.1); Chloride, Blood 109 mmol/L (98-108); Creatinine, Blood 4.43 mg/dL (0.40-1.00); Glomerular Filtration Rate 12 (60-); Glucose, Blood 218 mg/dL (70-99); Phosphorus, Blood 4.5 mg/dL (2.5-4.9); Potassium, Blood 5.5 mmol/L (3.5-5.5); Sodium, Blood 136 mmol/L (136-145)
[2023-05-12 09:04] LABS: QUANTIFERON MITOGEN MINUS NIL >10.00 IU/mL; QUANTIFERON NIL 0.05 IU/mL; QUANTIFERON TB GOLD PLUS Negative (Negative)
--- NOTE | 2023-05-12 13:04 | NUR ---
1155-THIS RN WENT INTO PT'S ROOM TO FIND PT MISSING FROM THE FLOOR. RN REPORTED PT MISSING TO CHARGE NURSE DANA.
--- NOTE | 2023-05-12 13:10 | NUR ---
0900- WHILE THIS RN WAS ADMINISTERING PT'S AM MEDS, PT WAS OFFERD HER NICOTINE PATCH. PT REFUSED THE NICOTINE PATCH AND STATED, "NO, I WANT TO FUCKING GO HOME AND SMOKE CIGARETTE."
--- NOTE | 2023-05-12 13:20 | NUR ---
1124- PT WAS OFF THE FLOOR FOR 29 MINUTES. PT CAME BACK TO THE MEDICAL FLOOR AND WAS BACK IN HER ROOM AT 1124. RN INFORMED CHARGE NURSE KALA. CLINICAL HOUSE DIRECTOR HERMAN ALSO INFORMED.
--- NOTE | 2023-05-12 13:22 | NUR ---
1245- THIS RN INFORMED PT OF OUR NO SMOKING POLICY/NO IGNITION POLICY. PT DENIES ANY IGNITION/CIGS, ETC THAT SHE HAS AT THE HOSPITAL. RN ASKED PT WHAT SHE WAS OUTSIDE FOR AND PT STATED SHE "NEEDED FRESH AIR." RN INFORMED PT OF HOSPITAL POLICY REGARDING NOT LEAVING THE FLOOR. PT IS ALSO ON CONTACT PRECAUTIONS AND LEFT THE FLOOR. PT IS A HIGH RISK SINCE SHE IS A SMOKER AND LEFT THE FLOOR. SITTER CALLED IN FOR PT TO COMPLY WITH POLICY.
--- NOTE | 2023-05-12 13:31 | NUR ---
1300- RN ANSWERED PHONE CALL FROM PT'S MOTHER. PT'S MOTHER WAS YELLING/CURSING AT NURSE ON THE PHONE. MOTHER WAS UPSET PT WAS GETTING A SITTER WHEN HER DAUGHTER, "WAS JUST GETTING FRESH AIR." RN INFORMED MOTHER OF HOSPITAL POLICIES THAT PT HAD VIOLATED. RN STATED SHE DID NOT HAVE TIME TO ARGUE ON THE PHONE. RN HAD TO HANG UP ON THE MOTHER, SHE WOULD NOT SAY GOOD BYE.
--- NOTE | 2023-05-12 13:34 | NUR ---
1330- SITTER ARRIVED ON FLOOR-GIVEN UPDATES ABOUT PT.
--- NOTE | 2023-05-12 14:11 | NUR ---
1350- PT REQUESTED AMA PAPERS AND REFUSED TO SIGN THEM. TWO NURSE WITNESS SIGNED BY THIS RN AND TEETEE CORTEZ. PT INFORMED OF RISK VS BENEFITS OF LEAVING THE HOSPITAL. DR. CASTREJON AND RONALDO BOTH INFORMED OF PT'S AMA.
--- NOTE | 2023-05-12 14:16 | NUR ---
1215- THIS RN ATTEMPTED TO DO SHIFT ASSESSMENT OF PT AND PT REFUSED. PT ASKED TO BE LEFT ALONE.
--- NOTE | 2023-05-12 14:21 | NUR ---
3025- THIS RN ATTEMPTED TO SPEAK WITH PT ABOUT LEAVING THE FLOOR AND PT STATED, "I DIDN'T TO SHIT! THIS IS BULL SHIT!" RN ASKED PT NO TTO CUSS AND LEFT THE ROOM.
[2023-05-13 15:05] LABS: HEPATITIS B SURFACE ANTIBODY <3.10 IU/L
[2023-05-13 16:11] LABS: HEPATITIS A ANTIBODY, IGM Negative (Negative); HEPATITIS B CORE ANTIBODY, IGM Negative (Negative); HEPATITIS B SURFACE ANTIGEN Negative (Negative); HEPATITIS C AB CIA INTERP Negative (Negative); HEPATITIS C ANTIBODY CIA INDEX 0.09 IV
== END 2023-05-12 14:01 | disposition left against medical advice (07) | DRG 674 ==
LOC: ER 11:47 → MEDS 16:36 → PCU 16:36 → MEDS 05-11 17:35
PROVIDERS: Emergency Medicine; Family Medicine; Hospitalist; ADMIT Family Medicine
PROC: 30277N1 Transfusion of Nonautologous Red Blood Cells into Products of Conception, Circulatory, Via Natural or Artificial Opening (ICD-10-PCS; 2023-05-08)
PROC: 0JH63XZ Insertion of Tunneled Vascular Access Device into Chest Subcutaneous Tissue and Fascia, Percutaneous Approach (ICD-10-PCS; principal; 2023-05-11)
PROC: 05HM33Z Insertion of Infusion Device into Right Internal Jugular Vein, Percutaneous Approach (ICD-10-PCS; 2023-05-11)
PROC: 5A1D70Z Performance of Urinary Filtration, Intermittent, Less than 6 Hours Per Day (ICD-10-PCS; 2023-05-12)
DX: N17.0 Acute kidney failure with tubular necrosis (principal); E87.1 Hypo-osmolality and hyponatremia; E87.20 Acidosis, unspecified; I12.0 Hypertensive chronic kidney disease with stage 5 chronic kidney disease or end stage renal disease; N18.5 Chronic kidney disease, stage 5; E87.5 Hyperkalemia; D63.1 Anemia in chronic kidney disease; E83.30 Disorder of phosphorus metabolism, unspecified; G89.29 Other chronic pain; J44.9 Chronic obstructive pulmonary disease, unspecified; F41.9 Anxiety disorder, unspecified; F32.A Depression, unspecified; K21.9 Gastro-esophageal reflux disease without esophagitis; E10.22 Type 1 diabetes mellitus with diabetic chronic kidney disease; E10.51 Type 1 diabetes mellitus with diabetic peripheral angiopathy without gangrene; E10.65 Type 1 diabetes mellitus with hyperglycemia; F17.210 Nicotine dependence, cigarettes, uncomplicated; Z89.512 Acquired absence of left leg below knee; Z89.431 Acquired absence of right foot; Z90.49 Acquired absence of other specified parts of digestive tract; Z71.6 Tobacco abuse counseling; Z88.5 Allergy status to narcotic agent; Z88.1 Allergy status to other antibiotic agents
CPT/HCPCS: 36415; 36430; 36558; 71046; 76937; 77001; 80053; 80069; 80074; 82010; 82570; 82607; 82728; 82746; 82803; 82947; 83036; 83540; 83550; 83735; 84100; 84156; 85014; 85018; 85025; 85610; 85730; 86480; 86850; 86900; 86901; 86923; 87340; 96374; 96375; 99152; 99153; 99285-25; A9270; C1750; C1769; C1894; J0360; J1644; J1815; J2250; J2405; J2765; J3010; J7040; J7050; P9016; Q5106

== ENCOUNTER 2023-05-13 09:15 | Emergency (ER) | payer OTHER ==
[~2023-05-13] VITALS: Ht 172.7 cm; Wt 79.4 kg
[~2023-05-13 09:15] MED LIST changes: +ADMELOG100 UNIT/2; +BUPRENORPHINE HC2 M1 SL; +FAMO40 PO; +HYDHCL25; +HYDRA50 PO; +ONDA4; +SPIR25
[2023-05-13 10:44] LABS: BASOPHILS ABSOLUTE AUTO 0.05 K/mm3 (0.00-0.23); BASOPHILS PERCENT AUTO 1 % (0-2); EOSINOPHILS ABSOLUTE AUTO 0.05 K/mm3 (0.00-0.68); EOSINOPHILS PERCENT AUTO 1 % (0-6); Hemoglobin 10.2 g/dL (11.5-16.0); IMMATURE GRAN ABSOLUTE AUTO 0.03 K/mm3 (0.00-0.10); IMMATURE GRAN PERCENT AUTO 0 % (0-1); LYMPHOCYTES ABSOLUTE AUTO 1.42 K/mm3 (0.84-5.20); LYMPHOCYTES PERCENT AUTO 19 % (21-46); MONOCYTES ABSOLUTE AUTO 0.69 K/mm3 (0.16-1.47); MONOCYTES PERCENT AUTO 9 % (4-13); Mean Corpuscular HGB 29.7 pg (26.0-34.0); Mean Corpuscular HGB Conc 31.9 g/dL (31.5-36.5); Mean Corpuscular Volume 93 fL (80-100); NEUTROPHILS ABSOLUTE AUTO 5.13 K/mm3 (1.96-9.15); NEUTROPHILS PERCENT AUTO 70 % (41-73); Platelet Count 333 K/mm3 (150-400); RDW Coefficient Variation 14.6 % (11.7-14.2); RDW Standard Deviation 48.3 fL (35.1-46.3); Red Blood Cell Count 3.44 M/mm3 (3.80-5.20); White Blood Cell Count 7.37 K/mm3 (4.00-11.30)
[2023-05-13 11:58] LABS: Albumin, Blood 2.5 g/dL (3.4-5.0); Albumin/Globulin Ratio 0.6 (0.8-1.8); Bilirubin, Total 0.3 mg/dL (0.1-1.0); Bun/Creatinine Ratio 8.1 (12.0-20.0); Calcium, Blood 8.7 mg/dL (8.5-10.1); Creatinine, Blood 3.46 mg/dL (0.40-1.00); Potassium, Blood 4.5 mmol/L (3.5-5.5); Total Protein, Blood 6.5 g/dL (6.4-8.2)
[2023-05-13 14:28] VITALS: BP 174/110
== END 2023-05-13 14:33 | disposition home or self-care (01) ==
LOC: ER 09:15
PROVIDERS: Emergency Medicine
DX: E10.65 Type 1 diabetes mellitus with hyperglycemia (principal); E10.22 Type 1 diabetes mellitus with diabetic chronic kidney disease; I12.9 Hypertensive chronic kidney disease with stage 1 through stage 4 chronic kidney disease, or unspecified chronic kidney disease; N18.9 Chronic kidney disease, unspecified; J44.9 Chronic obstructive pulmonary disease, unspecified; Z88.5 Allergy status to narcotic agent; Z88.8 Allergy status to other drugs, medicaments and biological substances; Z79.4 Long term (current) use of insulin; Z79.899 Other long term (current) drug therapy; Z87.891 Personal history of nicotine dependence
CPT/HCPCS: 80053; 85025; 99285-25

== ENCOUNTER 2023-05-22 06:31 | Inpatient (IN) | payer OTHER ==
[~2023-05-22] VITALS: Ht 172.7 cm; Wt 68.0 kg
[2023-05-22] VITALS (49 sets, daily range): BP systolic 139–215; BP diastolic 86–140
[~2023-05-22 06:31] MED LIST changes: -ONDA4; -SPIR25; +SPIR25 PO
[2023-05-22 07:05] LABS: Calcium, Ionized (POC) 0.98 mmol/L (1.10-1.46); Chloride (POC) 88 mmol/L (98-108); Creatinine (POC) 3.8 mg/dL (0.6-1.0); Glucose (ISTAT POC) >700 mg/dL (70-99); Hemoglobin (POC) 13.9 g/dL (12.0-16.0); Potassium (POC) 5.1 mmol/L (3.5-5.5); Sodium (POC) 122 mmol/L (135-148); Total CO2 (POC) 20 mmol/L (21-32)
[2023-05-22 07:51] LABS: Beta-hydroxybutyrate 21.8 mg/dL (0.2-2.8)
[2023-05-22 08:18] LABS: BASOPHILS ABSOLUTE AUTO 0.07 K/mm3 (0.00-0.23); BASOPHILS PERCENT AUTO 1 % (0-2); EOSINOPHILS ABSOLUTE AUTO 0.03 K/mm3 (0.00-0.68); EOSINOPHILS PERCENT AUTO 0 % (0-6); Hematocrit 35.3 % (33.0-51.0); Hemoglobin 11.2 g/dL (11.5-16.0); IMMATURE GRAN ABSOLUTE AUTO 0.08 K/mm3 (0.00-0.10); IMMATURE GRAN PERCENT AUTO 1 % (0-1); LYMPHOCYTES ABSOLUTE AUTO 1.97 K/mm3 (0.84-5.20); LYMPHOCYTES PERCENT AUTO 17 % (21-46); MONOCYTES ABSOLUTE AUTO 0.83 K/mm3 (0.16-1.47); MONOCYTES PERCENT AUTO 7 % (4-13); Mean Corpuscular HGB 29.2 pg (26.0-34.0); Mean Corpuscular HGB Conc 31.7 g/dL (31.5-36.5); Mean Corpuscular Volume 92 fL (80-100); Mean Platelet Volume 11.5 fL (9.1-12.4); NEUTROPHILS ABSOLUTE AUTO 8.54 K/mm3 (1.96-9.15); NEUTROPHILS PERCENT AUTO 74 % (41-73); Platelet Count 270 K/mm3 (150-400); RDW Coefficient Variation 14.4 % (11.7-14.2); RDW Standard Deviation 48.3 fL (35.1-46.3); Red Blood Cell Count 3.83 M/mm3 (3.80-5.20); White Blood Cell Count 11.52 K/mm3 (4.00-11.30)
[2023-05-22 08:35] LABS: Albumin, Blood 2.6 g/dL (3.4-5.0); Albumin/Globulin Ratio 0.6 (0.8-1.8); Bilirubin, Total 0.7 mg/dL (0.1-1.0); Bun/Creatinine Ratio 9.9 (12.0-20.0); Calcium, Blood 7.9 mg/dL (8.5-10.1); Creatinine, Blood 3.55 mg/dL (0.40-1.00); Globulin, Blood 4.1 g/dL (2.2-4.0); Potassium, Blood 4.9 mmol/L (3.5-5.5); Total Protein, Blood 6.7 g/dL (6.4-8.2)
[2023-05-22 09:23] LABS: Source, Urine Foley catheter
[2023-05-22 09:32] LABS: Appearance, Urine Clear (Clear); Bilirubin, Urine Neg (Neg); Blood, Urine 5+ (Neg); Color, Urine Yellow (P-Yellow); Glucose Qualitative, Urine 4+ (Neg); Ketones, Urine 3+ (Neg); Leukocyte Esterase, Urine Neg (Neg); Nitrite, Urine Neg (Neg); Protein, Urine 4+ (Neg); Urobilinogen, Urine NORM (Normal)
[2023-05-22 10:05] LABS: U Amphetamine Screen Not Detected; U Barbituate Screen Not Detected; U Benzodiazapine Screen Not Detected; U Buprenorphine Screen Not Detected; U Cannabinoids Screen DETECTED; U Cocaine Screen Not Detected; U Methadone Screen Not Detected; U Methamphetamine Screen Not Detected; U Opiates Screen Not Detected; U Oxycodone Screen Not Detected; U Phencyclidine Screen Not Detected
[2023-05-22 10:10] LABS: Squamous Epithelial Cells Rare /hpf (Few); White Blood Cells, Urine 0-2 /hpf (0-5)
[2023-05-22 10:11] LABS: Bacteria Rare /hpf
[2023-05-22 10:12] LABS: Hyaline Casts 0-2 /lpf (0-2); Mucus Light (0-Heavy)
[2023-05-22 10:14] LABS: Renal Epithelial Rare /hpf (0-Rare)
[2023-05-22 11:14] LABS: Bun/Creatinine Ratio 10.5 (12.0-20.0); Calcium, Blood 7.4 mg/dL (8.5-10.1); Creatinine, Blood 3.42 mg/dL (0.40-1.00); Potassium, Blood 4.3 mmol/L (3.5-5.5)
[2023-05-22 12:28] LABS: Glucose, Blood 458 mg/dL (70-99)
--- NOTE | 2023-05-22 12:40 | NUR ---
ASSUMED CARE: PT ARRIVED FROM ED WITH NASAL TRUMPET IN PLACE, RESPIRATIONS UNEVEN, LABORED. DR PENA SPOKE WITH MULTI LINE CLAIMS ADJUSTER TO CONSULT DR FLOWERS FOR INTUBATION. DR FLOWERS AT BEDSIDE AT THIS TIME. INSULIN GTT RUNNING AT 5UNITS/HR. TKO LINES RUNNING THROUGH DIALYSIS PORT DUE TO LIMITED IV ACCESS
[2023-05-22 14:42] LABS: PCO2 Arterial 33.1 mmHg (35-45); PO2 Arterial 127 mmHg (80-100); pH Blood Arterial 7.41 (7.35-7.45)
--- NOTE | 2023-05-22 14:50 | NUR ---
AT 1241, DR FLOWERS, ICU AUTOMOTIVE SERVICE MANAGEMENT TEACHER AND 2 RTS AT BEDSIDE FOR INTUBATION DUE TO PT'S RESPIRATORY PATTERN UNABLE TO PROTECT AIRWAY. 4MG VERSED AND 60MG PROPOFOL ADMINISTERED. INTUBATED WITH A 7.5 ETT, 22 AT THE TEETH. OG WAS PLACED WITH MAROON/COFFEE GROUND SECRETIONS. DR FLOWERS AWARE THAT PT'S IV ACCESS IS LIMITED AND THAT WERE WERE INFUSING THROUGH DIALYSIS PORT. CENTRAL LINE PLACED TO LEFT SC. XRAY CONFIRMATION OF PLACEMENT OF ALL THREE LINES. OG TO LIS WITH COFFEE GROUND SECRETIONS STILL NOTED. MEHTA CATH IN PLACE WITH TEMP SENSOR SHOWING TEMP OF 102. COOL RAG, ICE PACKS AND FAN IN PLACE. PT'S BP ELEVATED SO NICARDIPINE GTT RUNNING AT 5MG/HR AT THIS TIME WITH PARAMETERS TO TITRATE FOR SBP LESS THAN 160. PT'S PUPILS EQUAL BUT NOT REACTIVE. SCLERAL EDEMA NOTED. DECORTICATE POSTURING NOTED. PROPOFOL AT 30MCG/KG AT THIS TIME. DR FLOWERS STATES TO OBSERVE FOR FURTHER POSTURING AND WILL DETERMINE FURTHER ORDERS IF IT CONTINUES. DR FLOWERS SPOKE WITH PT'S MOTHER AND GAVE UPDATE ON STATUS.
[2023-05-22 16:28] LABS: Albumin, Blood 2.4 g/dL (3.4-5.0); Anion Gap 10 mmol/L (6-16); Blood Urea Nitrogen 33 mg/dL (8-24); Bun/Creatinine Ratio 9.5 (12.0-20.0); CO2, Blood 21 mmol/L (21-32); Calcium, Blood 7.6 mg/dL (8.5-10.1); Chloride, Blood 104 mmol/L (98-108); Creatinine, Blood 3.47 mg/dL (0.40-1.00); Glomerular Filtration Rate 16 (60-); Glucose, Blood 271 mg/dL (70-99); Phosphorus, Blood 2.8 mg/dL (2.5-4.9); Potassium, Blood 3.9 mmol/L (3.5-5.5); Sodium, Blood 135 mmol/L (136-145)
--- NOTE | 2023-05-22 18:24 | NUR ---
SHIFT SUMMARY: PT REMAINS INTUBATED WITH SETTINGS OF AC 16/450/30%/5. PROPOFOL AT 30MCG/KG. PUPILS REMAIN UNRESPONSIVE WITH SCLERAL EDEMA. DECORTICATE POSTURING STILL NOTED. COUGH REFLEX NOTED WITH SUCTIONING. NICARDIPINE GTT OFF PER PARAMETERS FROM DR FLOWERS. SINUS TACH AT 110. OG DRAINING COFFEE GROUND SECRETIONS. MEHTA CATH WITH YELLOW AND SEDIMENT. PLAN FOR DIALYSIS TOMORROW. NO FURTHER NEEDS OR CHANGES AT THIS TIME.
--- NOTE | 2023-05-22 19:21 | NUR ---
CARE ASSUMPTION DURING BEDSIDE SHIFT REPORT W YASH RN THE PT IS LYING SUPINE IN BED INTUBATED ON THE VENTILATOR. PT'S ET TUBE IS CONFIRMED 7.5 22CM AT THE PT'S TEETH. VENT SETTINGS 16/450/5.0 W 25% FIO2. RT AT BEDSIDE AT THIS TIME PERFORMING SUCTIONING SHOWING THAT THE PT HAS GAG REFLEX WELL COUGHING REFLEX. PT W OCCASIONAL DECORICATE POSTURING MOTION W HER ARMS/SHOULDERS NOTED BY THIS RN AND IS REPORTED TO BE UNCHANGED FROM DAYSHIFT RN. PT'S BP ELEVATED WITHIN ORDERED PERAMETERS W SBP 160-180'S. PT HAS PROPOFOL GTT RUNNING AT 30MCG/KG/MIN AND NS RUNNING AT 150ML/HR. FLUIDS RUNNING INTO CENTRAL LINE IN PT'S LCW. DRESSING INTACT W VISIBLE BLOOD NOTED UNDER THE DRESSING. PT HAS MEHTA CATHETER THAT HAS SMALL AMOUNT OF CLEAR YELLOW URINE IN COLLECTION DEVICE. PT IN SBW RESTRAINTS. MONITOR SHOWING ST 110'S. CARE ASSUMED BY THIS RN AT THIS TIME.
[2023-05-22 23:37] LABS: Albumin, Blood 2.2 g/dL (3.4-5.0); Anion Gap 8 mmol/L (6-16); Blood Urea Nitrogen 36 mg/dL (8-24); Bun/Creatinine Ratio 9.4 (12.0-20.0); CO2, Blood 23 mmol/L (21-32); Calcium, Blood 8.1 mg/dL (8.5-10.1); Chloride, Blood 106 mmol/L (98-108); Creatinine, Blood 3.81 mg/dL (0.40-1.00); Glomerular Filtration Rate 14 (60-); Glucose, Blood 204 mg/dL (70-99); Potassium, Blood 3.9 mmol/L (3.5-5.5); Sodium, Blood 137 mmol/L (136-145)
[2023-05-23] VITALS (106 sets, daily range): BP systolic 122–195; BP diastolic 77–123
[2023-05-23 03:55] LABS: pH Blood Venous 7.37 (7.34-7.37)
[2023-05-23 03:56] LABS: Base Excess Venous -4.9 mmol/L; Bicarbonate Venous 20.6 mmol/L (24.0-30.0)
[2023-05-23 04:50] LABS: BASOPHILS ABSOLUTE AUTO 0.08 K/mm3 (0.00-0.23); BASOPHILS PERCENT AUTO 1 % (0-2); EOSINOPHILS PERCENT AUTO 0 % (0-6); Hematocrit 28.8 % (33.0-51.0); Hemoglobin 9.7 g/dL (11.5-16.0); IMMATURE GRAN ABSOLUTE AUTO 0.07 K/mm3 (0.00-0.10); IMMATURE GRAN PERCENT AUTO 1 % (0-1); LYMPHOCYTES PERCENT AUTO 16 % (21-46); MONOCYTES ABSOLUTE AUTO 1.44 K/mm3 (0.16-1.47); MONOCYTES PERCENT AUTO 10 % (4-13); Mean Corpuscular HGB 29.4 pg (26.0-34.0); Mean Corpuscular HGB Conc 33.7 g/dL (31.5-36.5); Mean Corpuscular Volume 87 fL (80-100); Mean Platelet Volume 11.1 fL (9.1-12.4); NEUTROPHILS ABSOLUTE AUTO 10.68 K/mm3 (1.96-9.15); NEUTROPHILS PERCENT AUTO 73 % (41-73); Platelet Count 228 K/mm3 (150-400); RDW Coefficient Variation 13.9 % (11.7-14.2); RDW Standard Deviation 44.3 fL (35.1-46.3); White Blood Cell Count 14.57 K/mm3 (4.00-11.30)
[2023-05-23 05:13] LABS: Magnesium, Blood 1.5 mg/dL (1.6-2.4)
[2023-05-23 05:27] LABS: Bun/Creatinine Ratio 9.6 (12.0-20.0); Creatinine, Blood 3.66 mg/dL (0.40-1.00); Potassium, Blood 4.1 mmol/L (3.5-5.5)
--- NOTE | 2023-05-23 05:57 | NUR ---
DRY FOOD PRODUCTS MIXER SUMAMRY PT BEGAN SHIFT SHOWING DECORTICATE POSTURING WHICH RESOLVED BY MIDNIGHT BUT PT'S BUE'S REMAIN RIDGID W PASSIVE RANGE OF MOTION. PT PULLING AWAY FROM PAINFUL STIMULI. PT W POSITIVE CORNEAL REFLEX. PT HAS STRONG COUGH AND GAG REFLEX. PT BREATHING OVER THE VENT FOR MOST OF THE SHIFT. PT MOVING ALL 4 EXTREMITIES THIS SHIFT. PT'S EYES WERE FIXED DOWN AT THE START OF THE SHIFT BUT THAT RESOLVED BY MIDNIGHT. PT'S PUPILS REMAIN EQUAL BUT NON-REACTIVE TO LIGHT THIS SHIFT. NO SEIZURE LIKE ACTIVITY THIS SHIFT. PT HAS MINOR GENERALIZED EDEMA AND SEVERE SCLERA EDEMA NOTED THIS SHIFT. PT'S MEHTA PATENT AND DRAINED 700ML CLEAR YELLOW URINE THIS SHIFT. PT'S BP ELEVATED THIS SHIFT W NICARDIPINE GTT BEING ON AND OFF THIS SHIFT BUT WAS ON 1 MG/HR FOR MOST OF THE SHIFT TO MAINTAIN SBP 160-180. MONTIOR SHOWING ST 100'S-110'S THIS SHIFT. PT AFEBRILE THIS SHIFT. SPO2 >92% ON VENT 16/450/5.0 W 25% FIO2. PT CBG STABLE THIS SHIFT W MIDNIGHT INSULIN COVERAGE BEING HELD. PROPOFOL GTT RUNNING AT 45 MCG/KG/HR. NS RUNNING AT 150ML/HR. SIGNIFICANT THICK ET TUBE SECRETIONS NOTED AT THIS START OF THE SHIFT BUT DECREASED SIGNIFICANTLY T/O THE SHIFT. WILL REPORT TO ONCOMING RN.
[2023-05-23 07:44] LABS: Anion Gap 9 mmol/L (6-16); Blood Urea Nitrogen 35 mg/dL (8-24); Bun/Creatinine Ratio 9.2 (12.0-20.0); CO2, Blood 21 mmol/L (21-32); Chloride, Blood 107 mmol/L (98-108); Creatinine, Blood 3.81 mg/dL (0.40-1.00); Glomerular Filtration Rate 14 (60-); Glucose, Blood 202 mg/dL (70-99); Phosphorus, Blood 4.2 mg/dL (2.5-4.9); Sodium, Blood 137 mmol/L (136-145)
--- NOTE | 2023-05-23 10:28 | NUR ---
ASSUMED CARE CARE WAS ASSUMED OF PT AT 0700, REPORT GIVEN BY MARTHA KINGSLEY. PT INTUBATED AND SEDATED. PROPOFOL GTT INFUSING, SEE FLOWSHEET. PT RESPONDS TO PAIN, BUT IT IS NOT A LOCALIZED RESPONSE. PT DOESN'T WITHDRAW SPECIFIC LIMB FROM PAINFUL STIMULI BUT WILL MOVE BLE AND/OR MINIMALLY MOVE HEAD. GAG AND COUGH REFLEX PRESENT. PUPILS EQUAL AND SLUGGISHLY RESPOND TO LIGHT. PT REMAINS IN SOFT BILATERAL WRIST RESTRAINTS FOR SAFETY. RASS -4. PT'S TONGUE SIGNIFICANTLY SWOLLEN, PT WILL OCCASIONALLY MOVE IT WITH STIMULI. VENTILATOR SETTINGS AC/VC 16/450/5/25%. ETT 22CM AT LIP. O2 SATS > 95%. CARDIAC MONITORING REFLECTS SINUS TACH, HR 100s. NICARDIPINE GTT INFUSING FOR SBP GOAL 160-180, SEE FLOWSHEET. LINES INFUSING THROUGH LEFT SUBCLAVIAN CENTRAL LINE. DRESSING C/D/I, 20 CM CATHETER WITH APPROXIMATELY 4 CM OF LINE EXPOSED. SECURED WITH SUTURES. DIALYSIS PORT TO RIGHT CHEST WALL, PT RECIEVING DIALYSIS AT THIS TIME. TEMP MEHTA PATENT AND DRAINING TO GRAVITY.
[2023-05-23 16:13] LABS: Albumin, Blood 1.9 g/dL (3.4-5.0); Anion Gap 7 mmol/L (6-16); Blood Urea Nitrogen 20 mg/dL (8-24); Bun/Creatinine Ratio 7.7 (12.0-20.0); CO2, Blood 27 mmol/L (21-32); Calcium, Blood 7.9 mg/dL (8.5-10.1); Chloride, Blood 106 mmol/L (98-108); Creatinine, Blood 2.61 mg/dL (0.40-1.00); Glomerular Filtration Rate 23 (60-); Glucose, Blood 162 mg/dL (70-99); Phosphorus, Blood 3.2 mg/dL (2.5-4.9); Potassium, Blood 3.3 mmol/L (3.5-5.5); Sodium, Blood 140 mmol/L (136-145)
--- NOTE | 2023-05-23 17:10 | NUR ---
SHIFT SUMMARY PT REMAINS INTUBATED AND SEDATED. PROPOFOL GTT INFUSING, SEE FLOWSHEET. AFTER DIALYSIS PROPOFOL GTT TITRATED DOWN FOR SAT, SEE FLOWSHEET. PT BECAME INCREASINGLY MORE RESPONSIVE TO PHYSICAL STIMULI, PT THE RESPONSE REMAINED NONSPECIFIC. PT BECAME INCREASINGLY MORE AGITATED AND WAS TRYING TO SIT UP WELL FLAILING LEGS AND ARMS AROUND BED. PT WAS NOT REDIRECTABLE. PT REMAINS IN BILATERAL SOFT WRIST RESTRAINTS FOR SAFETY. PT HAS BEEN MEDICATED FOR PAIN PER EMAR. AT THIS TIME RASS -3. PROPOFOL GTT TITRATED UP PT BECAME MORE AGITATED. VENT SETTINGS REMAINED THE SAME ALL DAY. AC/VC 16/450/5/25%. O2 SATS > 95%. CARDIAC MONITORING REFLECTS NSR AT THIS TIME. NICARDIPINE GTT INFUSING FOR SBP GOAL 160-180, SEE FLOWSHEET. HR 80s-90s. TEMP MEHTA PATENT AND DRAINING TO GRAVITY. NEPRO TF STARTED THIS SHIFT THROUGH OG, INFUSING AT GOAL OF 10 ML/HR. PT RECIEVED DIALYSIS TODAY, TOLERATED WELL. 1.7 L TAKEN OFF.
--- NOTE | 2023-05-23 19:01 | NUR ---
CARE ASSUMPTION DURING BEDSIDE SHIFT REPORT W ZOEY AND SOLANGE RN'S THE PT IS LYING IN BED INTUBATED ON THE VENTILATOR. ET TUBE CONFIRMED 7.5 22CM AT THE PT'S TEETH. VENT 16/450/5.0 W 25% FIO2. PT HAS PROPOFOL GTT RUNNING AT 20 MCG/KG/MIN. PT'S MONITOR SHOWING SR 80'S. BP ELEVATED W SBP IN THE 160'S W NICARDIPINE GTT ON STAND-BY, STANDING ORDERS TO KEEP SBP 160-180. PT HAS TEMP TYSON W SMALL AMOUNT OF CLEAR YELLOW URINE IN COLLECTION DEVICE. PT APPEARS COMFORTABLE NOT AROUSING TO OUR VOICES. CARE ASSUMED BY THIS RN AT THIS TIME.
--- NOTE | 2023-05-23 19:30 | NUR ---
PROVIDER CONTACT DURING INITIAL ASSESSMENT THIS RN PERFORMED ORAL SUCTIONING ON THE PT WHEN SHE THEN BEGAN TO THRASH IN BED NOT HAVING A SEIZURE BUT IBNSTEAD ATTEMPTING TO CRAWL OUT OF THE BED. ASSESSMENT NURSE PRACTITIONER AND HOOD RN ASSISTING THIS RN IN KEEPING THE PT SAFE WHILE THIS RN RETRIEVED AND GAVE THE PT 2MG VERSED. PT CALMING DOWN AFTER THIS AND APPEARS COMFORTABLE IN BED ON THE VENTILATOR. DR. FLOWERS CALLED BY THIS RN AND NOTIFIED OF THIS EVENT. NEW MEDICATIONS ORDERED BY DR. FLOWERS FOR AGITATION AND VERSED DC'D. CGHARGE RN NOTIFIED OF THESE CHANGES.
--- NOTE | 2023-05-23 21:08 | NUR ---
HANDOFF THIS RN GIVING UP CARE OF THIS PT TO NHUNG KINGSLEY DUE TO CHANGE IN ASSIGNMENTS. REPROT GIVEN TO CHRISTIAN AT THIS TIME.
[2023-05-23 22:21] LABS: Albumin, Blood 1.8 g/dL (3.4-5.0); Anion Gap 5 mmol/L (6-16); Blood Urea Nitrogen 22 mg/dL (8-24); Bun/Creatinine Ratio 7.5 (12.0-20.0); CO2, Blood 28 mmol/L (21-32); Chloride, Blood 108 mmol/L (98-108); Creatinine, Blood 2.92 mg/dL (0.40-1.00); Glomerular Filtration Rate 20 (60-); Glucose, Blood 132 mg/dL (70-99); Phosphorus, Blood 3.3 mg/dL (2.5-4.9); Potassium, Blood 3.3 mmol/L (3.5-5.5); Sodium, Blood 141 mmol/L (136-145)
[2023-05-24] VITALS (54 sets, daily range): BP systolic 121–194; BP diastolic 69–107
[2023-05-24 04:05] LABS: BASOPHILS ABSOLUTE AUTO 0.05 K/mm3 (0.00-0.23); BASOPHILS PERCENT AUTO 1 % (0-2); EOSINOPHILS ABSOLUTE AUTO 0.09 K/mm3 (0.00-0.68); EOSINOPHILS PERCENT AUTO 1 % (0-6); Hematocrit 24.8 % (33.0-51.0); Hemoglobin 8.2 g/dL (11.5-16.0); IMMATURE GRAN ABSOLUTE AUTO 0.02 K/mm3 (0.00-0.10); IMMATURE GRAN PERCENT AUTO 0 % (0-1); LYMPHOCYTES ABSOLUTE AUTO 1.95 K/mm3 (0.84-5.20); LYMPHOCYTES PERCENT AUTO 23 % (21-46); MONOCYTES ABSOLUTE AUTO 1.02 K/mm3 (0.16-1.47); MONOCYTES PERCENT AUTO 12 % (4-13); Mean Corpuscular HGB 29.1 pg (26.0-34.0); Mean Corpuscular HGB Conc 33.1 g/dL (31.5-36.5); Mean Corpuscular Volume 88 fL (80-100); Mean Platelet Volume 10.4 fL (9.1-12.4); NEUTROPHILS ABSOLUTE AUTO 5.48 K/mm3 (1.96-9.15); NEUTROPHILS PERCENT AUTO 64 % (41-73); Platelet Count 178 K/mm3 (150-400); RDW Coefficient Variation 14.3 % (11.7-14.2); RDW Standard Deviation 46.2 fL (35.1-46.3); Red Blood Cell Count 2.82 M/mm3 (3.80-5.20); White Blood Cell Count 8.61 K/mm3 (4.00-11.30)
[2023-05-24 04:21] LABS: Albumin, Blood 1.8 g/dL (3.4-5.0); Anion Gap 9 mmol/L (6-16); Blood Urea Nitrogen 23 mg/dL (8-24); Bun/Creatinine Ratio 7.3 (12.0-20.0); CO2, Blood 24 mmol/L (21-32); Calcium, Blood 7.8 mg/dL (8.5-10.1); Chloride, Blood 108 mmol/L (98-108); Creatinine, Blood 3.17 mg/dL (0.40-1.00); Glomerular Filtration Rate 18 (60-); Glucose, Blood 185 mg/dL (70-99); Iron Serum 25 ug/dL (50-170); Magnesium, Blood 2.1 mg/dL (1.6-2.4); Percent Saturation 18.4 % (15.0-50.0); Phosphorus, Blood 3.2 mg/dL (2.5-4.9); Potassium, Blood 3.4 mmol/L (3.5-5.5); Sodium, Blood 141 mmol/L (136-145); Total Iron Binding Capacity 136 ug/dL (250-450)
--- NOTE | 2023-05-24 06:05 | NUR ---
METAL TREATER SUMMARY PT BEGAN THE SHIFT OPENING HER EYES TO PAINFUL STIMULI BUT NOT MAINTAINING EYE CONTACT OR FOLLOWING COMMANDS. THIS AM AROUND 0400 THE PT WAS OPENING HER EYES TO MY VOICE AND FOLLOWING COMMANDS WHEN ASKED TO SQUEEZE MY HANDS HER STUDENT ACTIVITIES DIRECTOR WERE EQUAL AND STRONG. PT NODDING HER HEAD TO ANSWER YES WHEN ASKED QUESTIONS APPRORPRIATELY. PT'S PUPILS ARE EQUAL BUT MINIMALLY REACTIVE TO LIGHT. PT HAD SIGNIFICANT AMOUNT OF ANXIETY EARLY IN THE SHIFT REQUIRING ONE DOSE OF VERSED AND ONE DOSE OF ATIVAN SHE WAS FLAILING IN BED ATTEMPTING TO EXITING THE BED W HER LOWER BODY. PT ON PROPOFOL GTT AT 20 MCG/KG/MIN THIS SHIFT. BP STABLE THIS SHIFT W NICARDIPINE GTT ON STAND- BY ALL SHIFT HER SBP REMAINED <180 AND EVEN <160 FOR MOST OF THE SHIFT. MONITOR SHOWING SR 70'S THIS SHIFT. PT AFEBRILE THIS SHIFT. PT'S SPO2 >96% ALL SHIFT ON VENT 16/450/5 W 25% FIO2. SECRETIONS MUCH LESS THIS SHIFT COMPARED TO PREVIOUS NIGHT. PT'S CBG'S STABLE <200 ON TF RUNNING AT GOAL RATE. PT'S MEHTA PATENT AND DRAINED 500ML CLEAR YELLOW/GREEN URINE THIS SHIFT. PT HAD CHG BATH THIS SHIFT. PT RECIEVED 20 MEQ KCL THIS SHIFT FOR K OF 3.3. WILL REPORT TO ONCOMING RN.
--- NOTE | 2023-05-24 07:43 | NUR ---
ASSUMED CARE BEDSIDE REPORT FROM KALEB KINGSLEY AT 0700. PT INTUBATED AND SEDATED. VENT SETTINGS AC/VC 16/450/5/25%. LUNGS CLEAR. LARGE AMOUNT OF THIN ORAL SECRETIONS, SMALL AMOUNT OF THICK YELLOW SECRETIONS FROM ETT. PROPOFOL GTT FOR SEDATION, PT RASS +3 WHEN STIMULATED, SITTING UP, COUGHING, PULLING ON RESTRAINTS. ABLE TO FOLLOW SIMPLE DIRECTIONS, ATTEMPTED TO CONSOLE, PROPOFOL TITRATED UP, RASS -3 AT THIS TIME. STRONG COUGH/GAG/SWALLOW. PUPILS 3 MM, SLUGGISH. CONTINUES TO HAVE SCLERA EDEMA. OPENS EYES SPONTANEOUSLY, MAKES EYE CONTACT. SR, RATE 80'S. BP STABLE. NICARDIPINE ON STANDBY. OGT IN PLACE, TUBE FEEDS AT GOAL 10 ML/HR c 30 ML FLUSH q 4 HR. BT X 4. ABD ROUND, SOFT, NON TENDER. SKIN P/W/D. MEHTA PATENT, DRAINING CLEAR YELLOW URINE TO GRAVITY, STRICT I&O'S. CVC TO LSC, DRESSING C/D/I, 4 CM FROM INSERTION SITE. PERMACATH TO R CHEST WALL, DRESSING C/D/I. WILL CONTINUE TO MONITOR.
--- NOTE | 2023-05-24 11:00 | NUR ---
EXTUBATION PROPOFOL PLACED ON STANDBY, VENT CHANGED TO SPONT 10/5/25%. TV 800 ML. PT FOLLOWING COMMANDS. ANXIOUS. EXTUBATED AT 1020. RESTRAINTS REMOVED. STRONG COUGH, ABLE TO MANAGE SECRETIONS. ON RA, O2 SATS >95%.
--- NOTE | 2023-05-24 17:39 | NUR ---
SHIFT SUMMARY PT EXTUBATED THIS SHIFT, SEE NOTE. ON RA, LUNGS CLEAR. OCCASIONAL WET COUGH, ABLE TO CLEAR SECRETIONS. PT EITHER SOMULENT OR CRYING AND THRASHING IN BED. MEDICATED FOR PAIN AND ANXIETY ORDERED. PT SLEEPING AT THIS TIME. WAKES c VERBAL STIMULI. FOLLOWS SIMPLE COMMANDS. PT FAILED BEDSIDE SWALLOW. MEHTA PATENT, CVC AND PERMACATH IN PLACE. VSS. WILL CONTINUE TO MONITOR UNTIL REPORT TO ONCOMING NURSE.
--- NOTE | 2023-05-24 22:11 | NUR ---
ASSUMED CARE AT 1900 PT LAYING IN BED SLEEPING AT SHIFT CHANGE; EXTUBATED EARLIER TODAY. SHE IS A/O X3 AND DOESN'T REMEMBER EVENTS LEADING UP TO HOSPITALIZATION; VISUAL HALLUCINATIONS NOTED SEEING "SNOW FALL" POINTING UP AT THE CEILING; COMMUNICATING HER NEEDS AND EASILY GEE WHEN SHE IS UNCOMFORTALBE, IN PAIN, AND THIRSTY; EASILY FALLS ASLEEP MID CONVERSATION. SHE RATES 10/10 ACHING PAIN "ALL OVER"; PRN MORPHINE GIVEN WITH LITTLE AFFECT. SPO2 >96% ON RA; PRODUCTIVE COUGH NOTED; ONCE SHE COUGHED SO HARD THAT SHE VOMITED A SMALL AMOUNT OF BILE. MAX TEMP 100.5; BLANKETS REMOVED. HR 100-110. SBP 170'S; UNABLE TO TAKE PO HYDRALAZINE D/T COUGHING AFTER ORAL WATER SWAB; PRN IV HYDRALAZINE AVAILABLE, GIVEN AND SHOWING SIGNS OF IMPROVMENT; FACIAL EDEMA NOTED AROUND EYES, CHEEK, AND MOUTH/LIPS. MEHTA REMOVED DURING ASSESSMENT; SHE ASKED FOR IT TO BE REMOVED AND SHE IS MAKING HER NEEDS KNOWN; BRIEF NOW IN PLACE. PIV NOTED TO RFA. CENTRAL LINE TO LT SUBCLAVIAN PATENT. DIALYSIS CATH NOTED, DRESSING C/D/I. SEE SHIFT ASSESSMENT FOR FULL ASSESSMENT.
[2023-05-25] VITALS (23 sets, daily range): BP systolic 111–176; BP diastolic 74–91
[2023-05-25 05:03] LABS: Albumin, Blood 1.9 g/dL (3.4-5.0); Anion Gap 7 mmol/L (6-16); Blood Urea Nitrogen 24 mg/dL (8-24); Bun/Creatinine Ratio 6.3 (12.0-20.0); CO2, Blood 25 mmol/L (21-32); Calcium, Blood 8.1 mg/dL (8.5-10.1); Chloride, Blood 111 mmol/L (98-108); Creatinine, Blood 3.82 mg/dL (0.40-1.00); Glomerular Filtration Rate 14 (60-); Glucose, Blood 125 mg/dL (70-99); Phosphorus, Blood 3.8 mg/dL (2.5-4.9); Potassium, Blood 3.8 mmol/L (3.5-5.5); Sodium, Blood 143 mmol/L (136-145)
--- NOTE | 2023-05-25 06:25 | NUR ---
END OF SHIFT SUMMARY PT WAS ABLE TO DRINK WATER BY THE SPOONFULL AROUND 0000 SAFELY AND THEN FELL ASLEEP. AROUND 0400 PT WOKE UP IN A COUGHING FIT FOLLOWED BY VOMITING ALL THE PREVIOUS WATER GIVEN AT 0000; NO OTHER PO INTAKE AFTER THAT. SHE CONT TO BE ORIENTED X3 AND IMPULSIVE T/O THE SHIFT; FREQUENTLY MOVES AROUND IN BED TO GET COMFORTABLE. AFEBRILE. HR 90-120. SBP 120-150'S. USED BEDPAN ONCE. PRN MORPHINE GIVEN FOR PAIN TWICE WITH LITTLE AFFECT. HALDOL GIVEN ONCE FOR RESTLESSNESS AND AGGITATION. WILL REPORT TO AM RN WHEN AVAILABLE.
--- NOTE | 2023-05-25 09:33 | NUR ---
ASSUMED CARE REPORT FROM NORRIS KINGSLEY AT 0700. PT RESTING IN BED. WAKES c VERBAL STIMULI. FOLLOWS SIMPLE COMMANDS. A&OX 3. REPETITIVELY ASKING FOR WATER, ORAL CARE PROVIDED. PT UNABLE TO PASS BEDSIDE SWALLOW AT THIS TIME. ON RA, LUNGS CLEAR. SR ON MONITOR, RATE 90'S. BP STABLE. CVC TO LSC, PERMACATH TO RIGHT CHEST WALL, DRESSINGS C/D/I. WILL CONTINUE TO MONITOR.
--- NOTE | 2023-05-25 17:30 | NUR ---
SHIFT SUMMARY PT STATUS CHANGED TO PCU THIS SHIFT. PASSED BEDSIDE SWALLOW. COOPERATIVE c CARE, PLEASANT. FOLLOWS COMMANDS. A&OX 3. DENIES C/O AT THIS TIME. MEDICATED FOR HTN. LUNGS CLEAR. PRODUCTIVE COUGH. PT ABLE TO MANAGE SECRETIONS. PT VOMITED EARILER IN SHIFT BUT STATES SHE HAS NOT HAD FURTHER NAUSEA. TOLERATED FULL LIQUID DIET WELL. ABLE TO TRANSFER SELF TO BSC c STANDBY ASSIST. WILL CONTINUE TO MONITOR UNTIL REPORT TO ONCOMING NURSE.
--- NOTE | 2023-05-25 20:53 | NUR ---
ASSUMED CARE PT IS A&O X3; DOES NOT KNOW YEAR. PT HAD EPISODE OF EMESIS AND NAUSEA; TREATED PER EMAR. PT STATES SHE HAS GENERALIZED "EVERYWHERE" PAIN THAT IS 9/10; STATES THIS IS CHRONIC FOR HER. PT DENIES CP AND SOB. DENIES HALLUCINATIONS; STATES THAT SHE CAN "SEE FINE". RESTING QUIETLY AT THIS TIME.
[2023-05-26] VITALS (30 sets, daily range): BP systolic 127–181; BP diastolic 69–146
--- NOTE | 2023-05-26 01:10 | NUR ---
UPDATE DR PENALOZA NOTIFIED ABOUT PT'S FEVER AND HTN; ORDER FOR UA AND LABETALOL. PT WAS ALSO GIVEN TYLENOL.
[2023-05-26 02:24] LABS: Source, Urine Clean Catch
[2023-05-26 03:01] LABS: Bilirubin, Urine Neg (Neg); Blood, Urine 3+ (Neg); Glucose Qualitative, Urine 4+ (Neg); Ketones, Urine 3+ (Neg); Leukocyte Esterase, Urine Neg (Neg); Nitrite, Urine Neg (Neg); Protein, Urine 4+ (Neg); Specific Gravity, Urine 1.015 (1.003-1.022); Urobilinogen, Urine NORM (Normal)
[2023-05-26 03:20] LABS: Appearance, Urine Hazy (Clear); Color, Urine Pale Yellow (P-Yellow)
[2023-05-26 03:22] LABS: Bacteria Mod /hpf; Granular Casts 0-2 /lpf (0); Hyaline Casts 0-2 /lpf (0-2); Squamous Epithelial Cells Many /hpf (Few); White Blood Cells, Urine 0-2 /hpf (0-5)
[2023-05-26 03:36] LABS: Base Excess Venous -8.4 mmol/L; Bicarbonate Venous 18.1 mmol/L (24.0-30.0); PCO2 Venous 34.5 mmHg (38-42); pH Blood Venous 7.32 (7.34-7.37)
[2023-05-26 03:58] LABS: Albumin, Blood 1.7 g/dL (3.4-5.0); Anion Gap 13 mmol/L (6-16); Blood Urea Nitrogen 26 mg/dL (8-24); Bun/Creatinine Ratio 5.8 (12.0-20.0); CO2, Blood 18 mmol/L (21-32); Calcium, Blood 7.6 mg/dL (8.5-10.1); Chloride, Blood 105 mmol/L (98-108); Glomerular Filtration Rate 12 (60-); Glucose, Blood 208 mg/dL (70-99); Phosphorus, Blood 4.6 mg/dL (2.5-4.9); Potassium, Blood 3.6 mmol/L (3.5-5.5); Sodium, Blood 136 mmol/L (136-145)
[2023-05-26 04:20] LABS: BASOPHILS ABSOLUTE AUTO 0.04 K/mm3 (0.00-0.23); BASOPHILS PERCENT AUTO 1 % (0-2); EOSINOPHILS ABSOLUTE AUTO 0.04 K/mm3 (0.00-0.68); EOSINOPHILS PERCENT AUTO 1 % (0-6); Hemoglobin 8.3 g/dL (11.5-16.0); IMMATURE GRAN ABSOLUTE AUTO 0.02 K/mm3 (0.00-0.10); IMMATURE GRAN PERCENT AUTO 0 % (0-1); LYMPHOCYTES ABSOLUTE AUTO 0.89 K/mm3 (0.84-5.20); LYMPHOCYTES PERCENT AUTO 11 % (21-46); MONOCYTES ABSOLUTE AUTO 0.68 K/mm3 (0.16-1.47); MONOCYTES PERCENT AUTO 9 % (4-13); Mean Corpuscular HGB 29.7 pg (26.0-34.0); Mean Corpuscular HGB Conc 31.9 g/dL (31.5-36.5); Mean Platelet Volume 12.2 fL (9.1-12.4); NEUTROPHILS ABSOLUTE AUTO 6.36 K/mm3 (1.96-9.15); NEUTROPHILS PERCENT AUTO 79 % (41-73); Platelet Count 202 K/mm3 (150-400); RDW Coefficient Variation 14.1 % (11.7-14.2); RDW Standard Deviation 47.9 fL (35.1-46.3); Red Blood Cell Count 2.79 M/mm3 (3.80-5.20); White Blood Cell Count 8.03 K/mm3 (4.00-11.30)
[2023-05-26 04:41] LABS: Mean Corpuscular Volume 93 fL (80-100)
--- NOTE | 2023-05-26 05:44 | NUR ---
SHIFT SUMMARY PT REMAINS A&OX3; SPO2 >92% ON 2LNC (WHILE SLEEPING; >92% ON RA WHILE AWAKE); MAP >65 (SBP <160 SINCE LABETALOL ADMINISTRATION); NSR IN THE 80-90'S W/ RATE IN THE 110'S WITH EXERTION. TO BEDSIDE COMMODE W/ SBA. PT CONTINUES TO DENY CP, SOB, AND NAUSEA. PT HAS SLEPT/RESTED QUIETLY FOR MOST OF NIGHT. NO EMESIS SINCE BEGINING OF SHIFT. FOLLOWS COMMANDS AND COMMUNICATES APPROPRIATELY. PT TEMP AT 101.8; MOST RECENT 99.3.
--- NOTE | 2023-05-26 08:00 | NUR ---
INITIAL ASSESSMENT PATIENT ALERT AND ORIENTED EXCEPT TO DATE. PATIENT ANXIOUS AND LABILE AT TIMES. PATIENT COMPLAINING OF HEADACHE THIS AM. PATIENT STATES SHE ALSO HAS BODY ACHES. PATIENT HAD TMAX OF 101.8 DEGREES FAHRENHEIT ON MENTAL HEALTH DIRECTOR. PATIENT HAS MOIST, NONPRODUCTIVE COUGH. PATIENT WEAK- 1 PERSON ASSIST TRANSFER. LUNG SOUNDS CLEAR THROUGHOUT. PATIENT IN SR, HR IN THE 90S. SBP IN THE 160S. GI WNL. WNL. SCATTERED BRUISES NOTED. L BKA NOTED. R TRANSMETATARSAL AMPUTATION NOTED. PATIENT EDEMATOUS IN FACE AND R ARM AND HAND. BED LOW, CALL LIGHT IN REACH. CARE CONTINUES.
--- NOTE | 2023-05-26 08:38 | NUR ---
DR. OH IN TO SEE PATIENT THIS AM. INFORMED THAT PATIENT HAD TMAX OF 101.8 DEGREES FAHRENHEIT ON CARPENTER MATE. INFORMED THAT PATIENT HAS COUGHING, BODY ACHES AND COMPLAINTS OF SEVERE HEADACHE THIS AM.
[2023-05-26] MEDS ORDERED: GABA400 PO (09:24)
[2023-05-26] MEDS ORDERED: DULO30 PO (09:29)
[2023-05-26] MEDS ORDERED: GABA100 PO (09:34)
--- NOTE | 2023-05-26 12:20 | NUR ---
PATIENT AFEBRILE. HR IN THE LOW 100S. SBP IN THE 160S. BLOOD SUGAR 160; COVERAGE ADMINISTERED. CARE CONTINUES.
[2023-05-26] MEDS ORDERED: LEVE500 PO (14:09)
--- NOTE | 2023-05-26 14:26 | NUR ---
DR. OH CALLED AND INFORMED THAT PATIENT'S SBP IN THE 160S EVEN AFTER PRN LABETALOL. ASKED IF HE IS COMFORTABLE TO DISCHARGE WITH THIS BP OR IF WOULD LIKE NURSE TO GIVEN PRN HYDRALAZINE. DR. OH STATED TO GIVE PATIENT SPIRINOLACTINE AND STILL DC HOME.
--- NOTE | 2023-05-26 14:45 | NUR ---
SHIFT SUMMARY PATIENT REMAINED ALERT AND ORIENTED EXCEPT TO DATE. PATIENT REMAINED LABILE. PATIENT LAUGHING AND SMILING WITH NURSE AT TIMES AND TEARFUL AT OTHERS. PATIENT REMAINED AFEBRILE. PATIENT COMPLAINED OF HEADACHE ALL SHIFT; PATIENT RECEIVED PRN TYLENOL AND FIORICET. PAT[facility]. PATIENT REMAINED SATTING 90% AND GREATER ON RA. PATIENT CONTINUED WITH OCCASIONAL COUGH. PATIENT SR TO ST, HR 80S TO LOW 100S. SBP 120S TO 180S. PATIENT RECEIVED PRN IV LABETALOL AND OT DOSE OF SPIRINOLACTONE PRIOR TO DISCHARGE FOR HTN. PATIENT HAD GOOD APPETITE. NO COMPLAINTS OF NAUSEA THIS SHIFT. PATIENT HAD 1 BM THIS SHIFT. ADEQUATE URINE OUTPUT NOTED. NO CHANGES TO SKIN. PATIENT REPOSITIONED SELF FREQUENTLY IN BED. PATIENT STARTED ON LONG ACTING INSULIN THIS SHIFT. PATIENT HAD DIALYSIS THIS SHIFT. BLOOD SUGARS 164 AND 160 THIS SHIFT. PATIENT EDUCATED ON DISCHARGE INFORMATION AND STATED THAT SHE HAD NO FURTHER QUESTIONS. PATIENT TAKEN OUT TO [facility] WITH A PINK BACKPACK AND A WHITE PATIENT BELONGINGS BAG. NEW RX CALLED IN TO PATIENT PHARMACY. DISCHARGE COMPLETE.
== END 2023-05-26 14:50 | disposition home or self-care (01) | DRG 100 ==
LOC: ER 06:31 → ICUE 11:15
PROVIDERS: Emergency Medicine; Hospitalist; Internal Medicine; Internal Medicine Critical Care Medicine; ADMIT Internal Medicine
PROC: 5A1945Z Respiratory Ventilation, 24-96 Consecutive Hours (ICD-10-PCS; principal; 2023-05-22)
PROC: 0BH18EZ Insertion of Endotracheal Airway into Trachea, Via Natural or Artificial Opening Endoscopic (ICD-10-PCS; 2023-05-22)
PROC: 02HV33Z Insertion of Infusion Device into Superior Vena Cava, Percutaneous Approach (ICD-10-PCS; 2023-05-22)
PROC: 5A1D70Z Performance of Urinary Filtration, Intermittent, Less than 6 Hours Per Day (ICD-10-PCS; 2023-05-23)
DX: G40.901 Epilepsy, unspecified, not intractable, with status epilepticus (principal); G92.8 Other toxic encephalopathy; J96.01 Acute respiratory failure with hypoxia; N18.6 End stage renal disease; R40.2A Nontraumatic coma due to underlying condition; E87.0 Hyperosmolality and hypernatremia; E10.52 Type 1 diabetes mellitus with diabetic peripheral angiopathy with gangrene; E87.20 Acidosis, unspecified; N17.9 Acute kidney failure, unspecified; E10.69 Type 1 diabetes mellitus with other specified complication; E10.22 Type 1 diabetes mellitus with diabetic chronic kidney disease; I10 Essential (primary) hypertension; E10.65 Type 1 diabetes mellitus with hyperglycemia; F15.11 Other stimulant abuse, in remission; I27.20 Pulmonary hypertension, unspecified; F41.9 Anxiety disorder, unspecified; F32.A Depression, unspecified; J44.9 Chronic obstructive pulmonary disease, unspecified; D63.1 Anemia in chronic kidney disease; F17.200 Nicotine dependence, unspecified, uncomplicated; E87.6 Hypokalemia; Z99.2 Dependence on renal dialysis; Z86.14 Personal history of Methicillin resistant Staphylococcus aureus infection; Z79.4 Long term (current) use of insulin; Z88.5 Allergy status to narcotic agent; Z88.1 Allergy status to other antibiotic agents; Z78.1 Physical restraint status
CPT/HCPCS: 31500; 36556; 36600; 51702; 70450; 71045; 80047; 80048; 80053; 80069; 81001; 82010; 82570; 82800; 82803; 82947; 83540; 83550; 83735; 84156; 84703; 85014; 85025; 87086; 93306; 94002; 94003; 94762; 96361-59; 96365-59; 96375-59; 96376-59; 97112; 97162; 97165; 99291-25; A9270; C1751; C9113; J0360; J1630; J1644; J1815; J1953; J2060; J2250; J2270; J2405; J2560; J2704; J3475; J3480; J7030; J7050

== ENCOUNTER 2023-05-29 18:24 | Inpatient (IN) | payer OTHER ==
[~2023-05-29] VITALS: Ht 172.7 cm; Wt 69.5 kg
[~2023-05-29 18:24] MED LIST changes: +LEVE500 PO
[2023-05-29 18:51] LABS: BASOPHILS ABSOLUTE AUTO 0.06 K/mm3 (0.00-0.23); BASOPHILS PERCENT AUTO 1 % (0-2); EOSINOPHILS ABSOLUTE AUTO 0.01 K/mm3 (0.00-0.68); EOSINOPHILS PERCENT AUTO 0 % (0-6); Hematocrit 31.7 % (33.0-51.0); Hemoglobin 10.1 g/dL (11.5-16.0); IMMATURE GRAN ABSOLUTE AUTO 0.03 K/mm3 (0.00-0.10); IMMATURE GRAN PERCENT AUTO 0 % (0-1); LYMPHOCYTES ABSOLUTE AUTO 1.68 K/mm3 (0.84-5.20); LYMPHOCYTES PERCENT AUTO 19 % (21-46); MONOCYTES ABSOLUTE AUTO 0.52 K/mm3 (0.16-1.47); MONOCYTES PERCENT AUTO 6 % (4-13); Mean Corpuscular HGB 29.3 pg (26.0-34.0); Mean Corpuscular HGB Conc 31.9 g/dL (31.5-36.5); Mean Corpuscular Volume 92 fL (80-100); Mean Platelet Volume 10.5 fL (9.1-12.4); NEUTROPHILS ABSOLUTE AUTO 6.54 K/mm3 (1.96-9.15); NEUTROPHILS PERCENT AUTO 74 % (41-73); Platelet Count 311 K/mm3 (150-400); RDW Coefficient Variation 13.4 % (11.7-14.2); RDW Standard Deviation 45.5 fL (35.1-46.3); Red Blood Cell Count 3.45 M/mm3 (3.80-5.20); White Blood Cell Count 8.84 K/mm3 (4.00-11.30)
[2023-05-29 19:36] LABS: Albumin, Blood 2.1 g/dL (3.4-5.0); Albumin/Globulin Ratio 0.5 (0.8-1.8); Beta-hydroxybutyrate 117.1 mg/dL (0.2-2.8); Bilirubin, Total 0.3 mg/dL (0.1-1.0); Bun/Creatinine Ratio 8.7 (12.0-20.0); Calcium, Blood 8.1 mg/dL (8.5-10.1); Creatinine, Blood 3.46 mg/dL (0.40-1.00); Globulin, Blood 3.9 g/dL (2.2-4.0); Potassium, Blood 3.6 mmol/L (3.5-5.5)
[2023-05-29 19:40] LABS: Influenza A, PCR NEGATIVE (NEGATIVE); Influenza B, PCR NEGATIVE (NEGATIVE); Resp Syncytial Virus, PCR NEGATIVE (NEGATIVE); SARS-Cov-2 (COVID-19) PCR, MMC NEGATIVE (NEGATIVE)
[2023-05-29 20:46] LABS: Source, Urine Straight Cath
[2023-05-29 20:51] LABS: Bilirubin, Urine Neg (Neg); Blood, Urine 3+ (Neg); Glucose Qualitative, Urine 4+ (Neg); Ketones, Urine 4+ (Neg); Leukocyte Esterase, Urine Neg (Neg); Nitrite, Urine Neg (Neg); Protein, Urine 4+ (Neg); Specific Gravity, Urine 1.015 (1.003-1.022); Urobilinogen, Urine NORM (Normal)
[2023-05-29 20:57] LABS: Appearance, Urine Clear (Clear); Color, Urine Pale Yellow (P-Yellow)
[2023-05-29 20:59] LABS: Bacteria Few /hpf; Squamous Epithelial Cells Few /hpf (Few)
[2023-05-29 22:53] LABS: Bun/Creatinine Ratio 9.7 (12.0-20.0); Calcium, Blood 7.2 mg/dL (8.5-10.1); Creatinine, Blood 3.19 mg/dL (0.40-1.00); Magnesium, Blood 1.6 mg/dL (1.6-2.4); Phosphorus, Blood 4.3 mg/dL (2.5-4.9); Potassium, Blood 3.3 mmol/L (3.5-5.5)
[2023-05-30] VITALS (36 sets, daily range): BP systolic 134–192; BP diastolic 78–119
[2023-05-30 00:10] LABS: Base Excess Venous -10.7 mmol/L; Bicarbonate Venous 16.8 mmol/L (24.0-30.0); PCO2 Venous 25.8 mmHg (38-42); pH Blood Venous 7.36 (7.34-7.37)
--- NOTE | 2023-05-30 01:39 | NUR ---
PATIENT TO ICU 1 FROM ER AT APPROX 0030. PATIENT IS ALERT AND ORIENTED X4. ANXIOUS AND STARTS CRYING, WHEN ASKED QUESTIONS PATIENT SCREAMS ANSWERS AT THIS RN AND TELLS ME TO STOP ASKING. MEDICATED FOR HEADACHE PER EMAR. 02 SATS 100% ON RA. HR SR, BP HYPERTENSIVE AT TIMES, SYSTOLICS 160s. PATIENT STATES SHE PRODUCES URINE. HD CATH TO RIGHT CHEST. INSULIN DRIP INF AND FLUIDS CHANGED TO D5 1/2 NS. PATIENT INDEPENDENT WITH REPOSITIONING. SITTER OUTSIDE ROOM D/T PATIENT BEING HIGH IGNITION RISK. CALL LIGHT IN REACH
[2023-05-30 02:20] LABS: Base Excess Venous -4.7 mmol/L; Bicarbonate Venous 21.1 mmol/L (24.0-30.0); PCO2 Venous 28.2 mmHg (38-42); pH Blood Venous 7.44 (7.34-7.37)
[2023-05-30 03:28] LABS: Bun/Creatinine Ratio 9.1 (12.0-20.0); Calcium, Blood 7.1 mg/dL (8.5-10.1); Creatinine, Blood 3.19 mg/dL (0.40-1.00); Magnesium, Blood 1.5 mg/dL (1.6-2.4); Phosphorus, Blood 3.2 mg/dL (2.5-4.9); Potassium, Blood 3.4 mmol/L (3.5-5.5)
--- NOTE | 2023-05-30 06:16 | NUR ---
SHIFT SUMMARY PATIENT REMAINS ALERT AND ORIENTED X4. 02 SATS >95% ON RA. HR SR 80s, BP HYPERTENSIVE, MEDICATED WITH PO HYDRALAZINE PER EMAR. PATIENT UP TO BSC. LONG ACTING INSULIN GIVEN AND INSULIN DRIP TURNED OFF AT APPROX 0537. PATIENT TOLERATING PO INTAKE, DENIES N/V. MAG AND POTASSIUM REPLACED THIS SHIFT. CALL LIGHT IN REACH
[2023-05-30 06:26] LABS: Base Excess Venous -2.4 mmol/L; Bicarbonate Venous 22.8 mmol/L (24.0-30.0); PCO2 Venous 32.6 mmHg (38-42); pH Blood Venous 7.43 (7.34-7.37)
[2023-05-30 07:09] LABS: Calcium, Blood 7.6 mg/dL (8.5-10.1); Creatinine, Blood 3.22 mg/dL (0.40-1.00); Magnesium, Blood 1.7 mg/dL (1.6-2.4); Phosphorus, Blood 3.3 mg/dL (2.5-4.9); Potassium, Blood 3.6 mmol/L (3.5-5.5)
--- NOTE | 2023-05-30 08:00 | NUR ---
INITIAL ASSESSMENT PATIENT SLEEPING SOUNDLY UPON ENTERING ROOM. PATIENT WOKE EASILY TO VERBAL STIMULI. PATIENT ORIENTED X 4. PATIENT LETHARGIC. PATIENT AFEBRILE. PATIENT COMPLAINS OF SORE THROAT AND HEADACHE. PATIENT WITHDRAWN AND WITH FLAT AFFECT. L BKA AND R METATARSALS AMPUTATED. PATIENT SBA TRANSFER TO COMMODE OR GETS AROUND WITH WHEELCHAIR. PATIENT SATTING 90% AND GREATER ON RA. LUNGS CLEAR. PATIENT IN SR, HR IN THE 80S. SBP IN THE 170S. GI WNL. PATIENT DENIES NAUSEA. WNL. SCATTERED BRUISES AND SCABS NOTED. IVS FLUSHED AND SALINE LOCKED. BLOOD SUGAR 172. BED LOW, CALL LIGHT IN REACH. CARE CONTINUES.
--- NOTE | 2023-05-30 08:23 | NUR ---
DR. LITTLE INFORMED POTASSIUM OF 3.4 THIS AM. NO ORDER FOR REPLACEMENT RECEIVED AT THIS TIME.
--- NOTE | 2023-05-30 08:39 | NUR ---
DR. SAHNI INFORMED OF HIGH BP. NO ORDERS RECEIVED AT THIS TIME.
--- NOTE | 2023-05-30 09:01 | NUR ---
PATIENT AT DIALYSIS.
--- NOTE | 2023-05-30 12:30 | NUR ---
PATIENT AFEBRILE. SBP IN THE 140S. BLOOD SUGAR 139; NO COVERAGE INDICATED. PATIENT REFUSED BED BATH. CARE CONTINUES.
--- NOTE | 2023-05-30 14:19 | NUR ---
SHIFT SUMMARY PATIENT REMAINS LETHARGIC; NAPPING ON AND OFF. PATIENT REMAINS ALERT AND ORIENTED. PATIENT HAS COMPLAINED OF HEADACHE AND SORE THROAT THIS SHIFT. PATIENT HAS REMAINED AFEBRILE. PATIENT GIVEN PRN CEPACOL FOR SORE THROAT AND PRN TYLENOL FOR HEADACHE. PATIENT HAS REMAINED SATTING 90% AND GREATER ON RA. PATIENT HAS REMAINED SR TO ST, HR 80S TO LOW 100S. SBP 140S TO 180S. PATIENT GIVEN OT 5 MG IV HYDRALAZINE BEFORE DIALYSIS THIS AM. NO BM THIS SHIFT. PATIENT HAS HAD GOOD APPETITE. BLOOD SUGARS 172 AND 139 THIS SHIFT. WNL. NO CHANGES TO SKIN NOTED. PATIENT HAS REMAINED REPOSITIONING SELF FREQUENTLY. PATIENT DECLINED BED BATH THIS SHIFT. PATIENT TO BE TRANSFERRED TO MEDICAL FLOOR, ROOM 303 SHORTLY.
--- NOTE | 2023-05-30 14:50 | NUR ---
PATIENT SUCCESSFULLY TRANSFERRED TO MEDICAL FLOOR, ROOM 303. ALL BELONGINGS SENT WITH PATIENT.
--- NOTE | 2023-05-30 16:59 | NUR ---
NOTE: PATIENT ARRIVES TO ROOM AT 1450 FROM ICU RM 1, ASSUMED CARE OF PATIENT. PATIENT A/OX4, PLEASANT AND COOPERATIVE c CARE. PATIENT REPORTS HEADACHE 03/10, MEDICATED c IV TORADOL c MODERATE EFFECT. PATIENT RECEIVED OT DOSE OF IV HYDRALAZINE PER ORDER c NO EFFECT AND CONTINUES TO BE HYPERTENSIVE. BS TAKEN BEFORE DINNER WAS 270, MEDICATED c INSULIN COVERAGE PER ORDER. PATIENT HAS 1:1 SITTER OUTSIDE THE ROOM D/T HIGH IGNITION RISK. PIV TO L HAND SALINE LOCKED. CALL LIGHT IN REACH.
[2023-05-31 04:48] VITALS: BP 180/105
--- NOTE | 2023-05-31 04:50 | NUR ---
SHIFT SUMMARY ADAM WAS ALERT AND FULLY ORIENTED AT THE START OF THE SHIFT. PRIMARY COMPLAINT TONIGHT IS MIGRAINE HEADACHE, PAIN MANAGEMENT PROVIDED PER EMAR. PT CONTINUES TO HAVE ELEVATED B/P AND CBG. DR MON APPROVED HS ADMINISTRATION OF CS INSULIN D/T CBG 293. PT RESTING IN BED AT A LOW POSITION WITH CALL LIGHT IN REACH, AND 1:[address] TO PREVENT PT FROM SMOKING. 1L O2 VIA NC APPLIED TO PT FOR COMFORT.
[2023-05-31 06:10] LABS: BASOPHILS ABSOLUTE AUTO 0.03 K/mm3 (0.00-0.23); BASOPHILS PERCENT AUTO 1 % (0-2); EOSINOPHILS ABSOLUTE AUTO 0.02 K/mm3 (0.00-0.68); EOSINOPHILS PERCENT AUTO 0 % (0-6); Hematocrit 28.7 % (33.0-51.0); Hemoglobin 9.3 g/dL (11.5-16.0); IMMATURE GRAN ABSOLUTE AUTO 0.03 K/mm3 (0.00-0.10); IMMATURE GRAN PERCENT AUTO 1 % (0-1); LYMPHOCYTES ABSOLUTE AUTO 1.77 K/mm3 (0.84-5.20); LYMPHOCYTES PERCENT AUTO 29 % (21-46); MONOCYTES ABSOLUTE AUTO 0.69 K/mm3 (0.16-1.47); MONOCYTES PERCENT AUTO 11 % (4-13); Mean Corpuscular HGB Conc 32.4 g/dL (31.5-36.5); Mean Corpuscular Volume 89 fL (80-100); Mean Platelet Volume 10.5 fL (9.1-12.4); NEUTROPHILS PERCENT AUTO 59 % (41-73); Platelet Count 309 K/mm3 (150-400); RDW Coefficient Variation 13.4 % (11.7-14.2); Red Blood Cell Count 3.21 M/mm3 (3.80-5.20); White Blood Cell Count 6.14 K/mm3 (4.00-11.30)
[2023-05-31 06:37] LABS: Bun/Creatinine Ratio 8.3 (12.0-20.0); Calcium, Blood 7.6 mg/dL (8.5-10.1); Creatinine, Blood 2.9 mg/dL (0.40-1.00); Potassium, Blood 4.2 mmol/L (3.5-5.5)
[2023-05-31 08:17] VITALS: BP 183/111
--- NOTE | 2023-05-31 11:49 | NUR ---
NOTE: PATIENT A/OX4. PLEASANT AND COOPERATIVE c CARE. PATIENT STILL HYPERTENSIVE AND BS BEFORE BREAKFAST WAS 357. PATIENT RECEIVED BP MEDS AND INSULIN COVERAGE PER EMAR. PATIENT REPORTS HEADACHE 02/08, MEDICATED c PRN PAIN MEDS PER EMAR c MOD EFFECT. PATIENT HAD EMESIS APPEARS UNDIGESTED FOOD PARTICLES DARK BROWN COLOR, MEDICATED c PRN NAUSEA MEDS c SLIGHT EFFECT. PATIENT REPORTS "I'M DISCHARGING TODAY I ALREADY TALK TO THE DR." THIS RN INFORMED PATIENT THAT HAVE NOT SEEN THE DISCHARGE ORDER, BUT WILL INFORMED HER WHEN THE DISCHARGE PAPER AVAILABLE TO PROCESS. PATIENT WAS ANXIOUS TO GO HOME. NOTIFIED DR. MARLOW REGARDING PATIENT ISSUE ANXIOUS TO GO HOME AND DEMANDING TO BE DISCHARGE NOW. PER DR. MARLOW "I WILL TALK TO THE RESIDENCE AND REVIEWED THE DISCHARGE ORDER." THIS RN USES THERAPIUTIC COMMUNICATION AND TRIED CONVINCING PATIENT TO WAIT FOR A LITTLE BIT LONGER FOR THE DISCHARGE PAPER TO BE PLACED AND PROCESS. PATIENT YELLING OUT AND CRYING. PER PATIENT "I CANNOT WAIT ANYMORE, I NEED TO GO, I CAN SIGN THE PAPERS THAT I'M LEAVING AND I CAN CRAWL ON MY ONE LEG TO GET OUT OF HER. YOU CAN TAKE MY IV NOW." PATIENT HAS A L BKA AND R METATARSAL AMPUTEE. PATIENT WAS TRANSPORTED VIA WHEELCHAIR TO PATIENT ENTRANCE BY TAG MACHINE OPERATOR STAFF. NOTIFIED DR. MARLOW, PHOTOGRAPHIC PROCESSOR, KATIANA AND CONTROL TECHNICIAN NEISHA REGARDING PATIENT LEFT AMA.
== END 2023-05-31 12:46 | disposition left against medical advice (07) | DRG 637 ==
LOC: ER 18:24 → ERHOLD 20:52 → MEDS 20:52 → ICUE 05-30 00:30 → MEDS 05-30 14:46
PROVIDERS: Emergency Medicine; Family Medicine; ADMIT Student in an Organized Health Care Education/Training Program
DX: E10.10 Type 1 diabetes mellitus with ketoacidosis without coma (principal); N18.6 End stage renal disease; I12.0 Hypertensive chronic kidney disease with stage 5 chronic kidney disease or end stage renal disease; E10.22 Type 1 diabetes mellitus with diabetic chronic kidney disease; F15.10 Other stimulant abuse, uncomplicated; R07.0 Pain in throat; G40.909 Epilepsy, unspecified, not intractable, without status epilepticus; I27.20 Pulmonary hypertension, unspecified; F41.9 Anxiety disorder, unspecified; F32.A Depression, unspecified; J44.9 Chronic obstructive pulmonary disease, unspecified; F17.210 Nicotine dependence, cigarettes, uncomplicated; Z99.2 Dependence on renal dialysis; Z98.890 Other specified postprocedural states; Z90.49 Acquired absence of other specified parts of digestive tract; Z86.14 Personal history of Methicillin resistant Staphylococcus aureus infection; Z53.29 Procedure and treatment not carried out because of patient's decision for other reasons; Z90.710 Acquired absence of both cervix and uterus; Z89.512 Acquired absence of left leg below knee; Z89.431 Acquired absence of right foot; Z88.5 Allergy status to narcotic agent; Z88.1 Allergy status to other antibiotic agents; Z79.51 Long term (current) use of inhaled steroids; Z79.899 Other long term (current) drug therapy; Z79.01 Long term (current) use of anticoagulants; Z79.4 Long term (current) use of insulin
CPT/HCPCS: 0241U; 36415; 71046; 80048; 80053; 81001; 82010; 82800; 82803; 82947; 83735; 84100; 85025; 87081; 87147; 87430; 93005; 93010; 96374; 96375; 99285-25; A9270; J0360; J1644; J1815; J1885; J2405; J2765; J3475; J3480; J7030; J7042; J7050; J7120

== ENCOUNTER 2023-05-31 16:16 | Emergency (ER) | payer OTHER ==
[~2023-05-31] VITALS: Ht 172.7 cm; Wt 63.5 kg
[2023-05-31 16:44] LABS: BASOPHILS ABSOLUTE AUTO 0.05 K/mm3 (0.00-0.23); BASOPHILS PERCENT AUTO 1 % (0-2); EOSINOPHILS ABSOLUTE AUTO 0.01 K/mm3 (0.00-0.68); EOSINOPHILS PERCENT AUTO 0 % (0-6); Hematocrit 33.2 % (33.0-51.0); Hemoglobin 11.2 g/dL (11.5-16.0); IMMATURE GRAN ABSOLUTE AUTO 0.04 K/mm3 (0.00-0.10); IMMATURE GRAN PERCENT AUTO 0 % (0-1); LYMPHOCYTES ABSOLUTE AUTO 1.45 K/mm3 (0.84-5.20); LYMPHOCYTES PERCENT AUTO 14 % (21-46); MONOCYTES ABSOLUTE AUTO 0.81 K/mm3 (0.16-1.47); MONOCYTES PERCENT AUTO 8 % (4-13); Mean Corpuscular HGB Conc 33.7 g/dL (31.5-36.5); Mean Corpuscular Volume 86 fL (80-100); Mean Platelet Volume 10.6 fL (9.1-12.4); NEUTROPHILS PERCENT AUTO 77 % (41-73); Platelet Count 405 K/mm3 (150-400); RDW Coefficient Variation 13.1 % (11.7-14.2); RDW Standard Deviation 41.1 fL (35.1-46.3); Red Blood Cell Count 3.86 M/mm3 (3.80-5.20); White Blood Cell Count 10.16 K/mm3 (4.00-11.30)
[2023-05-31 16:46] LABS: Base Excess Venous 0.7 mmol/L; Bicarbonate Venous 26.2 mmol/L (24.0-30.0); PCO2 Venous 21.8 mmHg (38-42); pH Blood Venous 7.61 (7.34-7.37)
[2023-05-31 17:18] LABS: Albumin, Blood 2.2 g/dL (3.4-5.0); Albumin/Globulin Ratio 0.5 (0.8-1.8); Beta-hydroxybutyrate 21.7 mg/dL (0.2-2.8); Bilirubin, Total 0.3 mg/dL (0.1-1.0); Bun/Creatinine Ratio 8.2 (12.0-20.0); Calcium, Blood 8.4 mg/dL (8.5-10.1); Creatinine, Blood 3.06 mg/dL (0.40-1.00); Globulin, Blood 4.3 g/dL (2.2-4.0); Potassium, Blood 3.6 mmol/L (3.5-5.5); Total Protein, Blood 6.5 g/dL (6.4-8.2)
[2023-05-31 21:14] VITALS: BP 193/127
== END 2023-05-31 22:13 | disposition home or self-care (01) ==
LOC: ER 16:16
PROVIDERS: Physician Assistant
DX: E10.65 Type 1 diabetes mellitus with hyperglycemia (principal); E10.22 Type 1 diabetes mellitus with diabetic chronic kidney disease; I12.9 Hypertensive chronic kidney disease with stage 1 through stage 4 chronic kidney disease, or unspecified chronic kidney disease; N18.9 Chronic kidney disease, unspecified; J44.9 Chronic obstructive pulmonary disease, unspecified; Z88.5 Allergy status to narcotic agent; Z88.8 Allergy status to other drugs, medicaments and biological substances; Z79.4 Long term (current) use of insulin; Z79.899 Other long term (current) drug therapy; Z87.891 Personal history of nicotine dependence
CPT/HCPCS: 80053; 82010; 82803; 82947; 83605; 85025; 96361; 96374; 96375; 99284-25; C9113; J0780; J2405; J2765; J7120

== ENCOUNTER 2023-06-03 11:18 | Inpatient (IN) | payer OTHER ==
[~2023-06-03] VITALS: Ht 172.7 cm; Wt 66.7 kg
[2023-06-03] VITALS (13 sets, daily range): BP systolic 131–157; BP diastolic 76–91
[2023-06-03 12:16] LABS: Base Excess Venous -23.2 mmol/L; Bicarbonate Venous 9.2 mmol/L (24.0-30.0); PCO2 Venous 16.5 mmHg (38-42)
[2023-06-03 12:18] LABS: pH Blood Venous 7.15 (7.34-7.37)
[2023-06-03 12:40] LABS: BASOPHILS PERCENT AUTO 1 % (0-2); EOSINOPHILS PERCENT AUTO 0 % (0-6); Hematocrit 32.8 % (33.0-51.0); Hemoglobin 10.4 g/dL (11.5-16.0); IMMATURE GRAN ABSOLUTE AUTO 0.36 K/mm3 (0.00-0.10); IMMATURE GRAN PERCENT AUTO 2 % (0-1); LYMPHOCYTES ABSOLUTE AUTO 1.64 K/mm3 (0.84-5.20); LYMPHOCYTES PERCENT AUTO 9 % (21-46); MONOCYTES ABSOLUTE AUTO 1.09 K/mm3 (0.16-1.47); MONOCYTES PERCENT AUTO 6 % (4-13); Mean Corpuscular HGB 29.1 pg (26.0-34.0); Mean Corpuscular HGB Conc 31.7 g/dL (31.5-36.5); Mean Platelet Volume 11.3 fL (9.1-12.4); NEUTROPHILS ABSOLUTE AUTO 15.47 K/mm3 (1.96-9.15); NEUTROPHILS PERCENT AUTO 83 % (41-73); Platelet Count 498 K/mm3 (150-400); RDW Coefficient Variation 13.8 % (11.7-14.2); RDW Standard Deviation 46.2 fL (35.1-46.3); Red Blood Cell Count 3.57 M/mm3 (3.80-5.20); White Blood Cell Count 18.66 K/mm3 (4.00-11.30)
[2023-06-03 13:12] LABS: Mean Corpuscular Volume 92 fL (80-100)
[2023-06-03 13:21] LABS: Albumin, Blood 2.2 g/dL (3.4-5.0); Albumin/Globulin Ratio 0.5 (0.8-1.8); Bilirubin, Total 0.4 mg/dL (0.1-1.0); Bun/Creatinine Ratio 12.3 (12.0-20.0); Creatinine, Blood 2.93 mg/dL (0.40-1.00); Globulin, Blood 4.4 g/dL (2.2-4.0); Potassium, Blood 3.6 mmol/L (3.5-5.5); Total Protein, Blood 6.6 g/dL (6.4-8.2)
[2023-06-03 14:10] LABS: Source, Urine Clean Catch
[2023-06-03 14:20] LABS: Appearance, Urine Hazy (Clear); Bilirubin, Urine Neg (Neg); Blood, Urine 3+ (Neg); Color, Urine Yellow (P-Yellow); Glucose Qualitative, Urine 4+ (Neg); Ketones, Urine 4+ (Neg); Leukocyte Esterase, Urine Neg (Neg); Nitrite, Urine Neg (Neg); Protein, Urine 4+ (Neg); Urobilinogen, Urine NORM (Normal)
[2023-06-03 14:38] LABS: Amorphous Mod (0-Heavy); Bacteria Few /hpf; Granular Casts 0-2 /lpf (0); Squamous Epithelial Cells Mod /hpf (Few); Yeast/Fungi Urine Rare /hpf
[2023-06-03 16:11] LABS: Glucose, Blood 558 mg/dL (70-99)
--- NOTE | 2023-06-03 16:27 | NUR ---
ADMIT PT ARRIVED TO ICU 2 AT 1510 VIA ER BED. PT SLID OVER TO ICU BED. PT IS AWAKE, ALERT, AND ORIENTED. PT ANSWERS QUESTIONS APPROPRIATELY. PT WITH NS WITH 20 MEQ KCL INFUSING AT 150 ML/HR. PG TO BERNARDINO PLACED. INSULIN GTT STARTED PER FLOWSHEET. VITAL SIGNS STABLE. PT ON ROOM AIR. PT COMPLAINS OF NAUSEA UPON ARRIVAL. PT MED WITH ZOFRAN PER EMAR. WILL CONTINUE TO MONITOR.
--- NOTE | 2023-06-03 17:52 | NUR ---
SHIFT SUMMARY NO ACUTE CHANGES. PT RESTING QUIETLY. SEE FLOW SHEET FOR GTT TITRATIONS. VITAL SIGNS STABLE. WILL CONTINUE TO MONITOR AND REPORT OFF TO ONCOMING RN.
--- NOTE | 2023-06-03 19:00 | NUR ---
ASSUMED CARE ASSUMED CARE OF PATIENT. RESTING QUIETLY WHEN UNDISTURBED. MONITOR SHOWS NSR, RATE 90s. BP STABLE. RA SATS STABLE. RESPIRATIONS EVEN AND UNLAOBRED. INSULIN GTT INFUSING AT 5UNITS/HR. NS+ 20mEq KCL INFUSING AT 150MLS/HR. SEE SHIFT ASSESSMENT FOR FULL ASSESSMENT.
[2023-06-03 19:52] LABS: U Amphetamine Screen Not Detected; U Barbituate Screen DETECTED; U Benzodiazapine Screen Not Detected; U Buprenorphine Screen Not Detected; U Cannabinoids Screen DETECTED; U Cocaine Screen Not Detected; U Methadone Screen Not Detected; U Methamphetamine Screen Not Detected; U Opiates Screen Not Detected; U Oxycodone Screen Not Detected; U Phencyclidine Screen Not Detected
[2023-06-03 20:28] LABS: Bun/Creatinine Ratio 12.7 (12.0-20.0); Calcium, Blood 7.1 mg/dL (8.5-10.1); Creatinine, Blood 3.14 mg/dL (0.40-1.00); Potassium, Blood 3.7 mmol/L (3.5-5.5)
[2023-06-03 23:39] LABS: Bun/Creatinine Ratio 12.1 (12.0-20.0); Creatinine, Blood 3.13 mg/dL (0.40-1.00); Potassium, Blood 3.4 mmol/L (3.5-5.5)
[2023-06-04] VITALS (25 sets, daily range): BP systolic 135–182; BP diastolic 85–104
[2023-06-04 04:03] LABS: BASOPHILS ABSOLUTE AUTO 0.05 K/mm3 (0.00-0.23); BASOPHILS PERCENT AUTO 0 % (0-2); EOSINOPHILS ABSOLUTE AUTO 0.04 K/mm3 (0.00-0.68); EOSINOPHILS PERCENT AUTO 0 % (0-6); Hematocrit 27.2 % (33.0-51.0); Hemoglobin 9.5 g/dL (11.5-16.0); IMMATURE GRAN ABSOLUTE AUTO 0.14 K/mm3 (0.00-0.10); IMMATURE GRAN PERCENT AUTO 1 % (0-1); LYMPHOCYTES ABSOLUTE AUTO 1.75 K/mm3 (0.84-5.20); LYMPHOCYTES PERCENT AUTO 11 % (21-46); MONOCYTES PERCENT AUTO 8 % (4-13); Mean Corpuscular HGB 30.2 pg (26.0-34.0); Mean Corpuscular HGB Conc 34.9 g/dL (31.5-36.5); Mean Platelet Volume 10.9 fL (9.1-12.4); NEUTROPHILS ABSOLUTE AUTO 12.26 K/mm3 (1.96-9.15); NEUTROPHILS PERCENT AUTO 79 % (41-73); Platelet Count 448 K/mm3 (150-400); RDW Coefficient Variation 13.4 % (11.7-14.2); RDW Standard Deviation 41.8 fL (35.1-46.3); Red Blood Cell Count 3.15 M/mm3 (3.80-5.20); White Blood Cell Count 15.44 K/mm3 (4.00-11.30)
[2023-06-04 04:09] LABS: Bun/Creatinine Ratio 12.1 (12.0-20.0); Calcium, Blood 7.3 mg/dL (8.5-10.1); Creatinine, Blood 3.07 mg/dL (0.40-1.00); Mean Corpuscular Volume 86 fL (80-100); Potassium, Blood 3.2 mmol/L (3.5-5.5)
--- NOTE | 2023-06-04 06:25 | NUR ---
SHIFT SUMMARY NO ACUTE CHANGES. PT SLEPT WHEN UNDISTURBED. UP TO [facility] WITH STANDBY ASSIST. INCONTINENT OF LOOSE STOOL X 1. VOIDING WITHOUT DIFFICULTY. INSULIN GTT INFUSED BETWEEN 2-5UNITS/HR DURING SHIFT. LONG-ACTING INSULIN GIVEN AT 0504 AND INSULIN GTT STOPPED AT 0617. KCL IVPB INFUSING. MEDICATED WITH TYLENOL X 1 FOR C/O HEADACHE WITH MINIMAL RELIEF. MEDICATED WITH FIORICET X 2 DOSES WITH BETTER RELIEF OF HEADACHE. OCCASIONAL NAUSEA.
[2023-06-04 07:42] LABS: Bun/Creatinine Ratio 11.7 (12.0-20.0); Calcium, Blood 7.6 mg/dL (8.5-10.1); Creatinine, Blood 3.17 mg/dL (0.40-1.00); Potassium, Blood 3.4 mmol/L (3.5-5.5)
[2023-06-04 11:37] LABS: Bun/Creatinine Ratio 10.6 (12.0-20.0); Calcium, Blood 8.3 mg/dL (8.5-10.1); Creatinine, Blood 1.42 mg/dL (0.40-1.00); Potassium, Blood 3.6 mmol/L (3.5-5.5)
--- NOTE | 2023-06-04 15:04 | NUR ---
TRANSFER REPORT CALLED VIA PHONE. ALL QUESTIONS ANSWERED. PT TAKEN TO ROOM 308 VIA WHEELCHAIR WITH PCT. PT ABLE TO STAND A PIVOT TO WHEELCHAIR FROM BED WITH MINIMAL ASSISTANCE. ALL PT BELONGINGS AND MEDS TAKEN WITH PT.
--- NOTE | 2023-06-04 16:21 | NUR ---
SHIFT SUMMARY PATIENT IS ALERT AND ORIENTED. PATIENT IS A RECENT TRANSFER FROM ICU. SEE PRIOR ICU NURSE NOTES. NO ACUTE EVENTS SO FAR THIS SHIFT.
[2023-06-05] VITALS (7 sets, daily range): BP systolic 111–152; BP diastolic 70–100
--- NOTE | 2023-06-05 04:33 | NUR ---
SHIFT SUMMARY 1899: ASSUMED CARE OF PT, BEDSIDE REPORT RECEIVED FROM DAY SHIFT RN. PT IS SITTING UP IN BED. A/O X4. COMPLAINT OF H/A, MEDICATED PER ORDERS X2 DURING THE NIGHT. CALL TO HOSPITALIST WHEN PT RECEIVES NO RELIEF. NEW ORDERS RECIEVED AND PT REPORTS RELIEF OF HER H/A. HOME INSULIN ORDERS RESTARTED PER ORDERS TONIGHT. PT TOLERATED DOSE WELL WITHOUT S/S OF HYPOGLYCEMIA. NEEDS ADDRESSED THROUGHOUT THE NIGHT, SAFETY MEASURES TAKEN.
[2023-06-05 05:33] LABS: BASOPHILS ABSOLUTE AUTO 0.04 K/mm3 (0.00-0.23); BASOPHILS PERCENT AUTO 0 % (0-2); EOSINOPHILS ABSOLUTE AUTO 0.04 K/mm3 (0.00-0.68); EOSINOPHILS PERCENT AUTO 0 % (0-6); Hematocrit 25.1 % (33.0-51.0); Hemoglobin 8.2 g/dL (11.5-16.0); IMMATURE GRAN ABSOLUTE AUTO 0.06 K/mm3 (0.00-0.10); IMMATURE GRAN PERCENT AUTO 1 % (0-1); LYMPHOCYTES ABSOLUTE AUTO 2.04 K/mm3 (0.84-5.20); LYMPHOCYTES PERCENT AUTO 18 % (21-46); MONOCYTES ABSOLUTE AUTO 0.81 K/mm3 (0.16-1.47); MONOCYTES PERCENT AUTO 7 % (4-13); Mean Corpuscular HGB 28.9 pg (26.0-34.0); Mean Corpuscular HGB Conc 32.7 g/dL (31.5-36.5); Mean Corpuscular Volume 88 fL (80-100); Mean Platelet Volume 10.7 fL (9.1-12.4); NEUTROPHILS ABSOLUTE AUTO 8.46 K/mm3 (1.96-9.15); NEUTROPHILS PERCENT AUTO 74 % (41-73); Platelet Count 373 K/mm3 (150-400); RDW Coefficient Variation 13.8 % (11.7-14.2); RDW Standard Deviation 44.7 fL (35.1-46.3); Red Blood Cell Count 2.84 M/mm3 (3.80-5.20); White Blood Cell Count 11.45 K/mm3 (4.00-11.30)
[2023-06-05 05:47] LABS: Albumin, Blood 1.6 g/dL (3.4-5.0); Anion Gap 3 mmol/L (6-16); Blood Urea Nitrogen 18 mg/dL (8-24); Bun/Creatinine Ratio 6.8 (12.0-20.0); CO2, Blood 32 mmol/L (21-32); Calcium, Blood 7.9 mg/dL (8.5-10.1); Chloride, Blood 104 mmol/L (98-108); Creatinine, Blood 2.64 mg/dL (0.40-1.00); Glomerular Filtration Rate 22 (60-); Glucose, Blood 73 mg/dL (70-99); Phosphorus, Blood 2.5 mg/dL (2.5-4.9); Potassium, Blood 3.2 mmol/L (3.5-5.5); Sodium, Blood 139 mmol/L (136-145)
--- NOTE | 2023-06-05 08:29 | NUR ---
Blood sugar reported 44. Pt awake sitting up eating breakfast. OJ given and consumed. Dr. Springer made aware. No further orders at this time.
--- NOTE | 2023-06-05 16:34 | NUR ---
SHIFT SUMMARY Pt remains oriented x3 this shift. Sleeping most of the day. Wakes up for meals, decreased appetite. IV Zofran for nausea. Percacet for headache. Up to BSC independently. Blood sugar 44 this am, Dr. Springer aware, adjsutments made. Blood sugar again now is 44. Dr. Springer aware and will place orders.
[2023-06-06] VITALS (19 sets, daily range): BP systolic 134–193; BP diastolic 90–149
[2023-06-06 05:10] LABS: Albumin, Blood 1.5 g/dL (3.4-5.0); Anion Gap 2 mmol/L (6-16); Blood Urea Nitrogen 20 mg/dL (8-24); Bun/Creatinine Ratio 6.7 (12.0-20.0); CO2, Blood 30 mmol/L (21-32); Calcium, Blood 7.6 mg/dL (8.5-10.1); Chloride, Blood 107 mmol/L (98-108); Creatinine, Blood 2.97 mg/dL (0.40-1.00); Glomerular Filtration Rate 19 (60-); Glucose, Blood 93 mg/dL (70-99); Iron Serum 27 ug/dL (50-170); Percent Saturation 19.3 % (15.0-50.0); Phosphorus, Blood 2.4 mg/dL (2.5-4.9); Potassium, Blood 4.3 mmol/L (3.5-5.5); Sodium, Blood 139 mmol/L (136-145); Total Iron Binding Capacity 140 ug/dL (250-450)
--- NOTE | 2023-06-06 06:20 | NUR ---
SHIFT SUMMARY: PT IS ADMITTED FOR DKA AND IS A FULL CODE. IS ALERT AND ABLE TO MAKE NEEDS KNOWN. ADLs HAVE BEEN 1P MIN- STBY DEPENDING ON ACTIVITY. POWERGLIDE TO RIGHT UPPER IS PATENT WITH DRESSING THAT IS CDI. WAS GIVEN PRN PAIN MANAGEMENT 2. CBG WAS TAKEN AT ABOUT 0300 PRN SHE STATED THAT SHE HAD A HEADACHE AND WAS WANTING SUGAR. CBG WAS 44. WAS GIVEN OJ, SPRITE AND A 250ML BAG OF 5% DEXTROSE. AFTER 20 OF ALL BEING DONE CBG WAS 98 AND SHE STATED THAT SHE FELT BETTER IN GENERAL BUT THE HEADACHE WAS STILL PRESENT. JUST NOT STRONG.
--- NOTE | 2023-06-06 14:43 | NUR ---
SHIFT SUMMARY PT SLEEPING AT START OF SHIFT, NOT WANTING TO WAKE OR EAT BREAKFAST. PT TAKEN DOWN TO DIALYSIS AT 0900. PT C/O KELLY DURING DIALYSIS; MEDICATED PER EMAR. PT LATER REQUESTING ADDITIONAL MEDICATION FOR KELLY. DR MON NOTIFIED; NEW ORDERS PLACED. UP INDEPENDENTLY TO BSC NEEDED. DENIED FURTHER NEEDS AT THIS TIME. CALL LT IN REACH
[2023-06-07 05:13] LABS: Albumin, Blood 1.7 g/dL (3.4-5.0); Anion Gap 4 mmol/L (6-16); Blood Urea Nitrogen 10 mg/dL (8-24); Bun/Creatinine Ratio 4.3 (12.0-20.0); CO2, Blood 32 mmol/L (21-32); Calcium, Blood 8.3 mg/dL (8.5-10.1); Chloride, Blood 102 mmol/L (98-108); Creatinine, Blood 2.33 mg/dL (0.40-1.00); Glomerular Filtration Rate 26 (60-); Glucose, Blood 223 mg/dL (70-99); Potassium, Blood 4.4 mmol/L (3.5-5.5); Sodium, Blood 138 mmol/L (136-145)
[2023-06-07 05:57] VITALS: BP 151/112
--- NOTE | 2023-06-07 06:22 | NUR ---
SHIFT SUMMARY: PT IS ADMITTED FOR DKA AND IS A FULL CODE. IS ALERT AND ABLE TO MAKE NEEDS KNOWN. HAS BEEN INDEPENDENT THROUGHOUT SHIFT. STATED THAT SHE HAD A HEADACHE EARLY IN THE SHIFT WHEN OFFERED APAP TO TRY AND MANAGE IT PER INSTRUCTIONS PASSED ON BY DAY SHIFT NURSE, SHE DECLINED AND DID NOT ASK FOR ANYTHING ELSE FOR PAIN AFTER. POWERGLIDE TO RIGHT UPPER ARM IS PATENT WITH DRESSING THAT CDI. PRN CBG CHECK ABOUT 0100 WAS 162 WHICH WAS AN IMPROVEMENT FROM HS AT 55.
[2023-06-07 10:25] LABS: BASOPHILS ABSOLUTE AUTO 0.04 K/mm3 (0.00-0.23); BASOPHILS PERCENT AUTO 1 % (0-2); EOSINOPHILS ABSOLUTE AUTO 0.11 K/mm3 (0.00-0.68); EOSINOPHILS PERCENT AUTO 1 % (0-6); Hematocrit 32.1 % (33.0-51.0); Hemoglobin 9.8 g/dL (11.5-16.0); IMMATURE GRAN ABSOLUTE AUTO 0.04 K/mm3 (0.00-0.10); IMMATURE GRAN PERCENT AUTO 1 % (0-1); LYMPHOCYTES ABSOLUTE AUTO 2.24 K/mm3 (0.84-5.20); LYMPHOCYTES PERCENT AUTO 27 % (21-46); MONOCYTES ABSOLUTE AUTO 0.54 K/mm3 (0.16-1.47); MONOCYTES PERCENT AUTO 6 % (4-13); Mean Corpuscular HGB 28.5 pg (26.0-34.0); Mean Corpuscular HGB Conc 30.5 g/dL (31.5-36.5); Mean Platelet Volume 11.2 fL (9.1-12.4); NEUTROPHILS ABSOLUTE AUTO 5.41 K/mm3 (1.96-9.15); NEUTROPHILS PERCENT AUTO 65 % (41-73); Platelet Count 411 K/mm3 (150-400); Red Blood Cell Count 3.44 M/mm3 (3.80-5.20); White Blood Cell Count 8.38 K/mm3 (4.00-11.30)
[2023-06-07 10:26] LABS: Mean Corpuscular Volume 93 fL (80-100)
[2023-06-07 15:18] VITALS: BP 162/94
--- NOTE | 2023-06-07 15:22 | NUR ---
SHIFT SUMMARY PT SLEEPING AT START OF SHIFT. WAKES EASILY, BUT REFUSING CARE. PT REFUSING LABS, VS, AND CBG CHECKS. DR CASTREJON NOTIFIED AND UPDATED ON PT STATUS. DR CASTREJON LATER TO TO TALK WITH PT AND DISCUSS PLAN OF CARE. PT REPORTING THAT SHE WAS NOT READY TO GO HOME YET AND THEN BECOMING AGREEABLE TO CO-OP WITH CARE. CBG CHECK'D AND INSULIN GIVEN PER EMAR. AM DOSE OF GLARGINE GIVEN LATE PER DR CASTREJON. PM DOSE TO BE HELD AND GLARGINE TO BE CHANGED TO QAM FOR NOW UNTIL PT EATING MORE STABLE. OTHER MEDICATIONS ADJUSTED WELL TO ASSIST WITH C/O KELLY. PT MOSTLY SLEEPING AGAIN TODAY. ABLE TO MAKE NEEDS KNOWN. INDEPENDENT TO BSC NEEDED.
[2023-06-07 19:47] VITALS: BP 149/104
[2023-06-08 05:00] VITALS: BP 195/115
[2023-06-08 05:43] LABS: Albumin, Blood 1.5 g/dL (3.4-5.0); Anion Gap 5 mmol/L (6-16); Blood Urea Nitrogen 22 mg/dL (8-24); Bun/Creatinine Ratio 6.7 (12.0-20.0); CO2, Blood 29 mmol/L (21-32); Calcium, Blood 8.2 mg/dL (8.5-10.1); Chloride, Blood 103 mmol/L (98-108); Creatinine, Blood 3.26 mg/dL (0.40-1.00); Glomerular Filtration Rate 17 (60-); Glucose, Blood 272 mg/dL (70-99); Phosphorus, Blood 2.6 mg/dL (2.5-4.9); Potassium, Blood 4.6 mmol/L (3.5-5.5); Sodium, Blood 137 mmol/L (136-145)
--- NOTE | 2023-06-08 06:43 | NUR ---
SHIFT SUMMARY: PT IS ADMITTED FOR DKA AND IS A FULL CODE. IS ALERT AND ABLE TO MAKE NEEDS KNOWN. HAS BEEN INDEPENDENT THROUGHOUT SHIFT. STATED THAT SHE HAD A HEADACHE EARLY IN THE SHIFT WHEN OFFERED APAP TO TRY AND MANAGE IT PER INSTRUCTIONS PASSED ON BY DAY SHIFT NURSE, SHE DECLINED AND DID NOT ASK FOR ANYTHING ELSE FOR PAIN AFTER. POWERGLIDE TO RIGHT UPPER ARM IS PATENT WITH DRESSING THAT CDI.
[2023-06-08 07:27] VITALS: BP 183/113
[2023-06-08] MEDS ORDERED: ACET325 PO (11:47)
[2023-06-08] MEDS ORDERED: NEPHRO VITAMIN0.8 MG PO (11:49)
[2023-06-08] MEDS ORDERED: NORT10 PO (11:50)
[2023-06-08] MEDS ORDERED: PROP10 PO (11:51)
== END 2023-06-08 14:16 | disposition home or self-care (01) | DRG 637 ==
LOC: ER 11:18 → ICUE 14:34 → MEDS 06-04 14:58 → ENPENDDIS 06-08 10:17 → MEDS 06-08 14:16
PROVIDERS: Emergency Medicine; Hospitalist; Internal Medicine; Student in an Organized Health Care Education/Training Program; ADMIT Family Medicine
PROC: 5A1D70Z Performance of Urinary Filtration, Intermittent, Less than 6 Hours Per Day (ICD-10-PCS; principal; 2023-06-03)
DX: E10.10 Type 1 diabetes mellitus with ketoacidosis without coma (principal); N18.6 End stage renal disease; E87.1 Hypo-osmolality and hyponatremia; I12.0 Hypertensive chronic kidney disease with stage 5 chronic kidney disease or end stage renal disease; R51.9 Headache, unspecified; E10.22 Type 1 diabetes mellitus with diabetic chronic kidney disease; R07.0 Pain in throat; F15.10 Other stimulant abuse, uncomplicated; E10.649 Type 1 diabetes mellitus with hypoglycemia without coma; F32.A Depression, unspecified; F41.9 Anxiety disorder, unspecified; J44.9 Chronic obstructive pulmonary disease, unspecified; F17.210 Nicotine dependence, cigarettes, uncomplicated; E86.0 Dehydration; D63.1 Anemia in chronic kidney disease; D75.839 Thrombocytosis, unspecified; E87.8 Other disorders of electrolyte and fluid balance, not elsewhere classified; G89.4 Chronic pain syndrome; R56.9 Unspecified convulsions; I27.20 Pulmonary hypertension, unspecified; Z99.2 Dependence on renal dialysis; Z87.19 Personal history of other diseases of the digestive system; Z91.148 Patient's other noncompliance with medication regimen for other reason; Z86.14 Personal history of Methicillin resistant Staphylococcus aureus infection; Z90.49 Acquired absence of other specified parts of digestive tract; Z98.890 Other specified postprocedural states; Z90.710 Acquired absence of both cervix and uterus; Z89.512 Acquired absence of left leg below knee; Z88.5 Allergy status to narcotic agent; Z88.1 Allergy status to other antibiotic agents; Z79.899 Other long term (current) drug therapy; Z79.4 Long term (current) use of insulin; Z79.51 Long term (current) use of inhaled steroids; E10.65 Type 1 diabetes mellitus with hyperglycemia
CPT/HCPCS: 80048; 80053; 80069; 81001; 82010; 82803; 82947; 83540; 83550; 83605; 83735; 85025; 94760; 96361; 96374; 96375; 99284-25; 99285-25; A9270; C1751; C9113; J0780; J1644; J1790; J1815; J2270; J2405; J2765; J3480; J7030; J7042; J7050; J7060; J7120; Q5106

== ENCOUNTER 2023-06-14 05:16 | Emergency (ER) | payer OTHER ==
[~2023-06-14] VITALS: Ht 160 cm; Wt 52.2 kg
[~2023-06-14 05:16] MED LIST changes: +NEPHRO VITAMIN0.8 MG PO; +NORT10 PO; +PROP10 PO
[2023-06-14 05:57] LABS: BASOPHILS ABSOLUTE AUTO 0.06 K/mm3 (0.00-0.23); BASOPHILS PERCENT AUTO 0 % (0-2); EOSINOPHILS ABSOLUTE AUTO 0.01 K/mm3 (0.00-0.68); EOSINOPHILS PERCENT AUTO 0 % (0-6); Hematocrit 28.7 % (33.0-51.0); Hemoglobin 9.3 g/dL (11.5-16.0); IMMATURE GRAN ABSOLUTE AUTO 0.08 K/mm3 (0.00-0.10); IMMATURE GRAN PERCENT AUTO 1 % (0-1); LYMPHOCYTES PERCENT AUTO 6 % (21-46); MONOCYTES ABSOLUTE AUTO 1.29 K/mm3 (0.16-1.47); MONOCYTES PERCENT AUTO 8 % (4-13); Mean Corpuscular HGB 29.6 pg (26.0-34.0); Mean Corpuscular HGB Conc 32.4 g/dL (31.5-36.5); Mean Corpuscular Volume 91 fL (80-100); Mean Platelet Volume 10.7 fL (9.1-12.4); NEUTROPHILS ABSOLUTE AUTO 13.94 K/mm3 (1.96-9.15); NEUTROPHILS PERCENT AUTO 86 % (41-73); Platelet Count 395 K/mm3 (150-400); RDW Coefficient Variation 15.2 % (11.7-14.2); RDW Standard Deviation 50.3 fL (35.1-46.3); Red Blood Cell Count 3.14 M/mm3 (3.80-5.20); White Blood Cell Count 16.28 K/mm3 (4.00-11.30)
[2023-06-14 06:28] LABS: Albumin, Blood 1.9 g/dL (3.4-5.0); Anion Gap 7 mmol/L (6-16); Blood Urea Nitrogen 31 mg/dL (8-24); Bun/Creatinine Ratio 9.5 (12.0-20.0); CO2, Blood 26 mmol/L (21-32); Calcium, Blood 8.4 mg/dL (8.5-10.1); Chloride, Blood 102 mmol/L (98-108); Creatinine, Blood 3.27 mg/dL (0.40-1.00); Glomerular Filtration Rate 17 (60-); Glucose, Blood 388 mg/dL (70-99); Phosphorus, Blood 4.9 mg/dL (2.5-4.9); Sodium, Blood 135 mmol/L (136-145)
[2023-06-14] MEDS ORDERED: PRED20 PO (08:32)
[2023-06-14] MEDS ORDERED: BENZ100A PO (08:32)
[2023-06-14 10:16] VITALS: BP 115/96
== END 2023-06-14 10:30 | disposition home or self-care (01) ==
LOC: ER 05:16
PROVIDERS: Emergency Medicine
DX: J44.1 Chronic obstructive pulmonary disease with (acute) exacerbation (principal); D64.9 Anemia, unspecified; E10.65 Type 1 diabetes mellitus with hyperglycemia; E10.40 Type 1 diabetes mellitus with diabetic neuropathy, unspecified; R56.9 Unspecified convulsions; F15.10 Other stimulant abuse, uncomplicated; Z89.512 Acquired absence of left leg below knee; Z91.199 Patient's noncompliance with other medical treatment and regimen due to unspecified reason; Z99.2 Dependence on renal dialysis; Z86.14 Personal history of Methicillin resistant Staphylococcus aureus infection; Z91.148 Patient's other noncompliance with medication regimen for other reason
CPT/HCPCS: 36415; 71045; 80069; 85025; 94640; 94644; 94664; 99285-25

== ENCOUNTER 2023-06-14 20:05 | Inpatient (IN) | payer OTHER ==
[~2023-06-14] VITALS: Ht 172.7 cm; Wt 62.2 kg
[~2023-06-14 20:05] MED LIST changes: +BENZ100A PO; +PRED20 PO
[2023-06-14 20:26] LABS: Base Excess Venous -2.6 mmol/L; Bicarbonate Venous 22.5 mmol/L (24.0-30.0); PCO2 Venous 35.7 mmHg (38-42)
[2023-06-14 20:28] LABS: BASOPHILS ABSOLUTE AUTO 0.04 K/mm3 (0.00-0.23); BASOPHILS PERCENT AUTO 0 % (0-2); EOSINOPHILS PERCENT AUTO 0 % (0-6); Hematocrit 29.6 % (33.0-51.0); Hemoglobin 9.5 g/dL (11.5-16.0); IMMATURE GRAN ABSOLUTE AUTO 0.05 K/mm3 (0.00-0.10); IMMATURE GRAN PERCENT AUTO 0 % (0-1); LYMPHOCYTES ABSOLUTE AUTO 0.96 K/mm3 (0.84-5.20); LYMPHOCYTES PERCENT AUTO 7 % (21-46); MONOCYTES ABSOLUTE AUTO 1.02 K/mm3 (0.16-1.47); MONOCYTES PERCENT AUTO 7 % (4-13); Mean Corpuscular HGB 29.3 pg (26.0-34.0); Mean Corpuscular HGB Conc 32.1 g/dL (31.5-36.5); Mean Corpuscular Volume 91 fL (80-100); Mean Platelet Volume 10.2 fL (9.1-12.4); NEUTROPHILS ABSOLUTE AUTO 12.24 K/mm3 (1.96-9.15); NEUTROPHILS PERCENT AUTO 86 % (41-73); Platelet Count 393 K/mm3 (150-400); RDW Coefficient Variation 14.7 % (11.7-14.2); RDW Standard Deviation 49.7 fL (35.1-46.3); Red Blood Cell Count 3.24 M/mm3 (3.80-5.20); White Blood Cell Count 14.31 K/mm3 (4.00-11.30)
[2023-06-14 20:46] LABS: Albumin, Blood 1.9 g/dL (3.4-5.0); Anion Gap 9 mmol/L (6-16); Blood Urea Nitrogen 36 mg/dL (8-24); Bun/Creatinine Ratio 10.9 (12.0-20.0); CO2, Blood 26 mmol/L (21-32); Calcium, Blood 8.1 mg/dL (8.5-10.1); Chloride, Blood 99 mmol/L (98-108); Glomerular Filtration Rate 17 (60-); Glucose, Blood 550 mg/dL (70-99); Phosphorus, Blood 4.8 mg/dL (2.5-4.9); Potassium, Blood 3.7 mmol/L (3.5-5.5); Sodium, Blood 134 mmol/L (136-145)
[2023-06-14 23:55] LABS: Influenza A, PCR NEGATIVE (NEGATIVE); Influenza B, PCR NEGATIVE (NEGATIVE); Resp Syncytial Virus, PCR NEGATIVE (NEGATIVE); SARS-Cov-2 (COVID-19) PCR, MMC NEGATIVE (NEGATIVE)
[2023-06-15] VITALS (53 sets, daily range): BP systolic 83–202; BP diastolic 60–143
--- NOTE | 2023-06-15 04:25 | NUR ---
PT ARRIVED TO THE UNIT AT 0245. PT TRANSFERED WITH ASSISTANCE FROM 1P, SCOOTED HERSELF OFF OF THE [facility] TO THE HOSPITAL BED. PT ADMITTED FOR COPD EXACERBATION. PT ON 2L VIA NC, OXYGEN SATURATION AT 100%. LABORED BREATHING, LUNGS SOUND COARSE, WITH EXPIRATORY WHEEZE. SUBSTATION MECHANIC HAD TO USE ULTRASOUND TO PLACE A NEW IV. PRN HYDROXYZINE GIVEN FOR ANXIETY. CALL LIGHT WITHIN REACH, WCTM.
[2023-06-15 05:03] LABS: Base Excess Venous -2.1 mmol/L; Bicarbonate Venous 23.1 mmol/L (24.0-30.0); PCO2 Venous 34.3 mmHg (38-42); pH Blood Venous 7.42 (7.34-7.37)
[2023-06-15 05:15] LABS: BASOPHILS ABSOLUTE AUTO 0.07 K/mm3 (0.00-0.23); BASOPHILS PERCENT AUTO 0 % (0-2); EOSINOPHILS PERCENT AUTO 0 % (0-6); Hematocrit 31.8 % (33.0-51.0); Hemoglobin 10.3 g/dL (11.5-16.0); IMMATURE GRAN ABSOLUTE AUTO 0.14 K/mm3 (0.00-0.10); IMMATURE GRAN PERCENT AUTO 1 % (0-1); LYMPHOCYTES ABSOLUTE AUTO 0.68 K/mm3 (0.84-5.20); LYMPHOCYTES PERCENT AUTO 3 % (21-46); MONOCYTES ABSOLUTE AUTO 0.34 K/mm3 (0.16-1.47); MONOCYTES PERCENT AUTO 2 % (4-13); Mean Corpuscular HGB 29.1 pg (26.0-34.0); Mean Corpuscular HGB Conc 32.4 g/dL (31.5-36.5); Mean Corpuscular Volume 90 fL (80-100); Mean Platelet Volume 9.8 fL (9.1-12.4); NEUTROPHILS ABSOLUTE AUTO 19.49 K/mm3 (1.96-9.15); NEUTROPHILS PERCENT AUTO 94 % (41-73); Platelet Count 398 K/mm3 (150-400); RDW Coefficient Variation 14.6 % (11.7-14.2); RDW Standard Deviation 47.9 fL (35.1-46.3); Red Blood Cell Count 3.54 M/mm3 (3.80-5.20); White Blood Cell Count 20.72 K/mm3 (4.00-11.30)
[2023-06-15 05:42] LABS: Albumin, Blood 1.8 g/dL (3.4-5.0); Anion Gap 10 mmol/L (6-16); Blood Urea Nitrogen 38 mg/dL (8-24); Bun/Creatinine Ratio 12.1 (12.0-20.0); CO2, Blood 23 mmol/L (21-32); Calcium, Blood 8.4 mg/dL (8.5-10.1); Chloride, Blood 102 mmol/L (98-108); Creatinine, Blood 3.14 mg/dL (0.40-1.00); Glomerular Filtration Rate 18 (60-); Glucose, Blood 148 mg/dL (70-99); Magnesium, Blood 1.7 mg/dL (1.6-2.4); Potassium, Blood 4.4 mmol/L (3.5-5.5); Sodium, Blood 135 mmol/L (136-145)
--- NOTE | 2023-06-15 08:01 | NUR ---
ICU ARRIVAL: Pt transferred to ICU 15 from medical floor at 0751 after rapid response. Pt currently receiving a continuous neb, sitting upright in chair. Dr Elliott at bedside.
--- NOTE | 2023-06-15 08:15 | NUR ---
ASSUMED CARE OF PT/ MICA MINER- BEDSIDE REPORT COMPLETED WITH NIGHT RN. PER REPORT PT HAD BEEN STRUGGLING TO BREATHE SINCE ARRIVAL ON MED FLOOR FROM ED. ANXIETY MEDS X 2 WERE ADMINISTERED. IV STEROIDS GIVEN, ONCE IV ACCESS WAS RESTABLISHED. PT WAS STRUGGLING TO BREATHE O2 SATS WERE 100% BUT REPS RATE 40, CALLED RT DORIS, PT RECIEVING BREATHING Tx AND BEGAN TO HAVE RESPIRATIONS THAT WERE AUDIBLY NOT MOVING AIR, CAUSING INCREASED PANIC, NOTIFIED WORK MEASUREMENT ENGINEER WHO CALLED DR CORONA. MICA MINER CALLED, PT RECIEVED RESEMIC EPI AND ADDITIONAL 125MG OF IV SOLUMEDROL, AWARE SHE HAD JUST RECIEVED A DOSE. AT [phone]. BEDSIDE REPORT COMPLETED WITH NIGHT RN. EPI WAS NOT EFFECTIVE, RECIEVED ORDER FOR TRANSFER TO ICU. CALLED ICU 15 RN AFTER PT WAS TRANSFERED AND GAVE VERBAL REPORT.
--- NOTE | 2023-06-15 08:22 | NUR ---
PT HAD DIFFICULTY BREATHING, RR WAS 40, STRIDOR SOUNDING, LABORED. RT WAS CALLED TO GIVE A BREATHING TREATMENT. RAPID RESPONSE WAS CALLED SHORTLY AFTER PT CONTINUED TO STRUGGLE TO CATCH HER BREATH. ANXIETY MEDICATION GIVEN EARLY THIS MORNING WHEN PT ARRIVED TO THE FLOOR. PRN PO VISTARIL AND ONE TIME DOSE OF IV ATIVAN GIVEN, SOMEWHAT EFFECTIVE. PT WAS PLACED ON 2L VIA NC WHEN SHE ARRIVED TO THE FLOOR. WHEEZING WAS HEARD UPON EXPIRATION, COARSE LUNG SOUNDS. PT WAS TRANSFERED TO PCU.
--- NOTE | 2023-06-15 08:25 | NUR ---
NEBULIZER TOLERANCE: Pt states she is unable to tolerate her continuous neb due to anxiety. RN has attempted to hold neb as blow-by, however pt continuous to state, "I don't want it. I am very hungy." RN explained to pt that it is unsafe to eat while in respiratory distress. Dr. Louis and RT at bedside.
[2023-06-15 09:57] LABS: Source, Urine Foley catheter
--- NOTE | 2023-06-15 10:00 | NUR ---
BELONGINGS: Pt arrived to ICU with a pink blanket that was placed in belongings bag. Night gown had to be cut off pt and was also placed in bag in room. No other belonging arrived with patient.
[2023-06-15 10:03] LABS: Appearance, Urine Hazy (Clear); Bilirubin, Urine Neg (Neg); Blood, Urine 3+ (Neg); Color, Urine Yellow (P-Yellow); Glucose Qualitative, Urine 3+ (Neg); Ketones, Urine 2+ (Neg); Leukocyte Esterase, Urine Neg (Neg); Nitrite, Urine Neg (Neg); Protein, Urine 4+ (Neg); Specific Gravity, Urine 1.015 (1.003-1.022); Urobilinogen, Urine NORM (Normal)
--- NOTE | 2023-06-15 10:25 | NUR ---
INTUBATION/SEDATION: 0900 20 mg of Etomidate given IV push 0901 90 mg succinylcholine given IV push 0901 Successful intubation; ETT 7.5, 24 at lips 0913 Restraints applied 0919 Pt agitated and restless; 15mg push propofol and 2 mg versed given IVP 0929 2mg versed given IVP 0944 Healy placed 1018 60 mg rocuronium given IVP Propofol titrated outside policy due to agitation with provider at bedside.
[2023-06-15 10:34] LABS: Bacteria Few /hpf; Squamous Epithelial Cells Few /hpf (Few); White Blood Cells, Urine 0-2 /hpf (0-5)
[2023-06-15 12:25] LABS: Base Excess Venous -6.3 mmol/L; Bicarbonate Venous 19.6 mmol/L (24.0-30.0); PCO2 Venous 35.7 mmHg (38-42); pH Blood Venous 7.34 (7.34-7.37)
--- NOTE | 2023-06-15 14:35 | NUR ---
FAMILY UPDATE: This RN spoke with pt's mother who states she is also pt's POA. Pt has four adult children who are estranged. Pt's mother states she will fax over POA paperwork.
[2023-06-15 16:36] LABS: BASOPHILS ABSOLUTE AUTO 0.02 K/mm3 (0.00-0.23); BASOPHILS PERCENT AUTO 0 % (0-2); EOSINOPHILS PERCENT AUTO 0 % (0-6); Hemoglobin 7.5 g/dL (11.5-16.0); IMMATURE GRAN ABSOLUTE AUTO 0.07 K/mm3 (0.00-0.10); IMMATURE GRAN PERCENT AUTO 1 % (0-1); LYMPHOCYTES PERCENT AUTO 6 % (21-46); MONOCYTES ABSOLUTE AUTO 0.22 K/mm3 (0.16-1.47); MONOCYTES PERCENT AUTO 2 % (4-13); Mean Corpuscular HGB Conc 32.6 g/dL (31.5-36.5); Mean Corpuscular Volume 89 fL (80-100); Mean Platelet Volume 10.9 fL (9.1-12.4); NEUTROPHILS ABSOLUTE AUTO 11.02 K/mm3 (1.96-9.15); NEUTROPHILS PERCENT AUTO 92 % (41-73); Platelet Count 333 K/mm3 (150-400); RDW Coefficient Variation 14.5 % (11.7-14.2); RDW Standard Deviation 46.2 fL (35.1-46.3); Red Blood Cell Count 2.59 M/mm3 (3.80-5.20); White Blood Cell Count 12.03 K/mm3 (4.00-11.30)
--- NOTE | 2023-06-15 17:58 | NUR ---
SHIFT SUMMARY: Pt transferred to ICU 15 from medical floor after rapid response. Shortly after she arrived to ICU she was intubated for continued stridor. OG tube placed with coffee ground secretions. Pt very difficult to sedate and required several sedation pushes and sami push post intubation for vent synchrony. Temp prob barraza placed with minimal drainage. PG placed in LUE. CT neck obtained. Serial CBC obtained to trend H&H. ENT, GI and nephrology consults placed. Tenative schedule for dialysis tomorrow. GI to come see pt this evening. No ENT on until tomorrow; this has already been discussed with auditor in charge.
--- NOTE | 2023-06-15 19:15 | NUR ---
ASSUMPTION OF CARE: RECEIVED REPORT FROM JACKSON KINGSLEY. PT INTUBATED AND SEDATED. AWAKENS TO PAINFUL AND VERBAL STIMULI. ABLE TO SHAKE HEAD YES AND NO TO QUESTIONS. PT QUICKLY BECOMES AGITATED AND ATTEMPTS TO PULL AT ET TUBE WHEN STIMULATED. COMPLIANT WITH VENT WHEN NOT STIMULATED. PROPOFOL AT 70 MCG/KG/HR FOR VENT COMPLIANCE. FENTANYL DRIP AT 100 MCG/HR ADJUNCT TO SEDATION. VENT SETTINGS AC/VC 15/400/5/30%. SPO2 >95%. SMALL AMOUNT OF THIN SECRETIONS SUCTIONED FROM ET TUBE. LINING SETTER IN PLACE, SR WITH HR 70'S. SBP 100'S-120'S. OGT SET TO LOW INTERMITTENT SUCTION WITH BROWN COLORED LIQUID DRAINING. MEHTA IN PLACE, DRAINING TO GRAVITY. POWERGLIDE TO MJ, INFUSING. PIV TO RAC, SALINE LOCKED. SOFT RESTRAINTS IN PLACE BILATERALLY FOR PROTECTION OF AIRWAY. BED LOW AND LOCKED
[2023-06-15 22:01] LABS: BASOPHILS ABSOLUTE AUTO 0.01 K/mm3 (0.00-0.23); BASOPHILS PERCENT AUTO 0 % (0-2); EOSINOPHILS PERCENT AUTO 0 % (0-6); Hemoglobin 7.3 g/dL (11.5-16.0); IMMATURE GRAN ABSOLUTE AUTO 0.05 K/mm3 (0.00-0.10); IMMATURE GRAN PERCENT AUTO 0 % (0-1); LYMPHOCYTES ABSOLUTE AUTO 0.74 K/mm3 (0.84-5.20); LYMPHOCYTES PERCENT AUTO 6 % (21-46); MONOCYTES ABSOLUTE AUTO 0.36 K/mm3 (0.16-1.47); MONOCYTES PERCENT AUTO 3 % (4-13); Mean Corpuscular HGB 29.6 pg (26.0-34.0); Mean Corpuscular HGB Conc 33.2 g/dL (31.5-36.5); Mean Corpuscular Volume 89 fL (80-100); Mean Platelet Volume 10.5 fL (9.1-12.4); NEUTROPHILS ABSOLUTE AUTO 10.52 K/mm3 (1.96-9.15); NEUTROPHILS PERCENT AUTO 90 % (41-73); Platelet Count 355 K/mm3 (150-400); RDW Coefficient Variation 14.6 % (11.7-14.2); Red Blood Cell Count 2.47 M/mm3 (3.80-5.20); White Blood Cell Count 11.68 K/mm3 (4.00-11.30)
[2023-06-16] VITALS (51 sets, daily range): BP systolic 91–172; BP diastolic 66–101
[2023-06-16 04:08] LABS: BASOPHILS ABSOLUTE AUTO 0.01 K/mm3 (0.00-0.23); BASOPHILS PERCENT AUTO 0 % (0-2); EOSINOPHILS PERCENT AUTO 0 % (0-6); Hematocrit 21.7 % (33.0-51.0); Hemoglobin 7.3 g/dL (11.5-16.0); IMMATURE GRAN ABSOLUTE AUTO 0.07 K/mm3 (0.00-0.10); IMMATURE GRAN PERCENT AUTO 1 % (0-1); LYMPHOCYTES ABSOLUTE AUTO 0.77 K/mm3 (0.84-5.20); LYMPHOCYTES PERCENT AUTO 6 % (21-46); MONOCYTES ABSOLUTE AUTO 0.58 K/mm3 (0.16-1.47); MONOCYTES PERCENT AUTO 5 % (4-13); Mean Corpuscular HGB 29.3 pg (26.0-34.0); Mean Corpuscular HGB Conc 33.6 g/dL (31.5-36.5); Mean Corpuscular Volume 87 fL (80-100); Mean Platelet Volume 10.9 fL (9.1-12.4); NEUTROPHILS ABSOLUTE AUTO 10.75 K/mm3 (1.96-9.15); NEUTROPHILS PERCENT AUTO 88 % (41-73); Platelet Count 403 K/mm3 (150-400); RDW Coefficient Variation 14.4 % (11.7-14.2); RDW Standard Deviation 45.5 fL (35.1-46.3); Red Blood Cell Count 2.49 M/mm3 (3.80-5.20); White Blood Cell Count 12.18 K/mm3 (4.00-11.30)
[2023-06-16 05:05] LABS: Albumin, Blood 1.5 g/dL (3.4-5.0); Albumin/Globulin Ratio 0.4 (0.8-1.8); Bilirubin, Total 0.3 mg/dL (0.1-1.0); Bun/Creatinine Ratio 14.2 (12.0-20.0); Calcium, Blood 7.8 mg/dL (8.5-10.1); Creatinine, Blood 4.31 mg/dL (0.40-1.00); Potassium, Blood 4.2 mmol/L (3.5-5.5); Total Protein, Blood 5.5 g/dL (6.4-8.2)
--- NOTE | 2023-06-16 06:35 | NUR ---
SHIFT SUMMARY: PT REMAINS INTUBATED AND SEDATED. VENT SETTINGS AC/VC 15/400/5/30%. ET TUBE 7.5, 24 AT THE LIP. SCANT SECRETIONS SUCTIONED FROM ET TUBE. PT AWAKENS TO VERBAL STIMULI, BECOMES EASILY AGITATED AND ATTEMPTS TO PULL AT ET TUBE. PT ABLE TO SHAKE HEAD YES AND NO TO QUESTIONS. PROPOFOL AT 65 MCG/KG/MIN, TITRATED FOR VENT COMPLIANCE. FENTANYL DRIP AT 100 MCG/HR AN ADJUNCT TO SEDATION. LUNG SOUNDS REMAIN CLEAR T/O THE SHIFT. SPO2 >95%. LYE TREATER IN PLACE, SR WITH HR 70'S. SBP 120'S-130'S. OGT SET TO LOW INTERMITTENT SUCTION. COFFEE GROUND COLORED LIQUID NOTED. MEHTA IN PLACE, DRAINING TO GRAVITY. DIALYSIS PORT TO RIGHT CHEST WALL, DRESSING C/D/I. POWERGLIDE TO MJ, PATENT AND INFUSING. PIV TO RAC, PATENT AND INFUSING. SOFT RESTRAINTS BILATERALLY REMAIN FOR PROTECTION OF AIRWAY. PLAN FOR ENDOSCOPY THIS AFTERNOON PER DR. ROJO. BED LOW AND LOCKED.
[2023-06-16 14:17] LABS: BASOPHILS ABSOLUTE AUTO 0.01 K/mm3 (0.00-0.23); BASOPHILS PERCENT AUTO 0 % (0-2); EOSINOPHILS PERCENT AUTO 0 % (0-6); Hematocrit 24.4 % (33.0-51.0); Hemoglobin 8.2 g/dL (11.5-16.0); IMMATURE GRAN ABSOLUTE AUTO 0.05 K/mm3 (0.00-0.10); IMMATURE GRAN PERCENT AUTO 0 % (0-1); LYMPHOCYTES ABSOLUTE AUTO 0.89 K/mm3 (0.84-5.20); LYMPHOCYTES PERCENT AUTO 7 % (21-46); MONOCYTES ABSOLUTE AUTO 0.65 K/mm3 (0.16-1.47); MONOCYTES PERCENT AUTO 5 % (4-13); Mean Corpuscular HGB 29.3 pg (26.0-34.0); Mean Corpuscular HGB Conc 33.6 g/dL (31.5-36.5); Mean Corpuscular Volume 87 fL (80-100); Mean Platelet Volume 10.8 fL (9.1-12.4); NEUTROPHILS ABSOLUTE AUTO 11.23 K/mm3 (1.96-9.15); NEUTROPHILS PERCENT AUTO 88 % (41-73); NRBC ABSOLUTE 0.02 K/mm3 (0.00-0.02); NRBC Auto 0.2 /100 WBC (0.0-0.2); Platelet Count 459 K/mm3 (150-400); RDW Coefficient Variation 14.7 % (11.7-14.2); RDW Standard Deviation 46.4 fL (35.1-46.3); White Blood Cell Count 12.83 K/mm3 (4.00-11.30)
--- NOTE | 2023-06-16 16:05 | NUR ---
06/16/23 1605 Ministerio Cardona History, Chart, Medications and Allergies reviewed before start of procedure. MONITOR INTACT WITH CONTINUOUS PULSE OXIMETRY, CONTINUOUS END TITAL CO2, AND INTERMITTENT BLOOD PRESSURE. 3-LEAD EKG REVIEWED WITH PHYSICIAN PRIOR TO START OF PROCEDURE. PT INTUBATED IN ICU, BALLOON SANDER SEDATION.
--- NOTE | 2023-06-16 18:03 | NUR ---
SHIFT SUMMARY NO ACUTE CHANGES THIS SHIFT. PT REMAINS INTUBATED AND SEDATED. VENT SETTINGS REMAIN AC 15, TV 400, PEEP 5, FIO2 30%. PT WITH MINIMAL ETT SECRETIONS THIS SHIFT. PT SEDATED WITH PROPOFOL AT 65 MCG/KG/MIN AND FENTANYL GTT AT 100 MCG/HR. PT WITH PERIODS OF AGITATION AND RESTLESSNESS WITH ATTEMPTS TO REACH FOR ETT. PT MED WITH ATIVAN PER EMAR. PT WITH NS INFUSING TKO. PG TO MJ REMAINS C/D/I. EGD DONE THIS AFTERNOON WITH DR ROJO AND DAY SURGERY TEAM AT BEDSIDE. OGT REMOVED DURING EGD, NEW OGT PLACED S/P EGD. OGT CLAMPED AT THIS TIME PER DR GOMEZ. PT RECIEVED DIALYSIS THIS MORNING. PERMACATH TO RIGHT UPPER CHEST C/D/I. MEHTA TEMP PROBE REMAINS IN PLACE WITH MINIMAL AMOUNT OF YELLOW URINE OUTPUT NOTED. VITAL SIGNS HAVE REMAINED STABLE. SBW RESTRAINTS REMAIN IN PLACE. WILL CONTINUE TO MONITOR AND REPORT OFF TO ONCOMING RN.
[2023-06-17] VITALS (22 sets, daily range): BP systolic 140–186; BP diastolic 86–115
[2023-06-17 05:30] LABS: BASOPHILS PERCENT AUTO 0 % (0-2); EOSINOPHILS PERCENT AUTO 0 % (0-6); Hematocrit 23.9 % (33.0-51.0); Hemoglobin 7.9 g/dL (11.5-16.0); IMMATURE GRAN ABSOLUTE AUTO 0.05 K/mm3 (0.00-0.10); IMMATURE GRAN PERCENT AUTO 1 % (0-1); LYMPHOCYTES ABSOLUTE AUTO 0.41 K/mm3 (0.84-5.20); LYMPHOCYTES PERCENT AUTO 4 % (21-46); MONOCYTES ABSOLUTE AUTO 0.56 K/mm3 (0.16-1.47); MONOCYTES PERCENT AUTO 6 % (4-13); Mean Corpuscular HGB Conc 33.1 g/dL (31.5-36.5); Mean Corpuscular Volume 88 fL (80-100); Mean Platelet Volume 10.9 fL (9.1-12.4); NEUTROPHILS ABSOLUTE AUTO 8.39 K/mm3 (1.96-9.15); NEUTROPHILS PERCENT AUTO 89 % (41-73); Platelet Count 460 K/mm3 (150-400); RDW Coefficient Variation 14.8 % (11.7-14.2); Red Blood Cell Count 2.72 M/mm3 (3.80-5.20); White Blood Cell Count 9.41 K/mm3 (4.00-11.30)
[2023-06-17 05:53] LABS: Albumin, Blood 1.7 g/dL (3.4-5.0); Albumin/Globulin Ratio 0.4 (0.8-1.8); Bilirubin, Total 0.2 mg/dL (0.1-1.0); Bun/Creatinine Ratio 11.1 (12.0-20.0); Calcium, Blood 8.2 mg/dL (8.5-10.1); Creatinine, Blood 2.97 mg/dL (0.40-1.00); Percent Saturation 25.2 % (15.0-50.0); Phosphorus, Blood 4.7 mg/dL (2.5-4.9); Potassium, Blood 3.8 mmol/L (3.5-5.5); Total Protein, Blood 5.7 g/dL (6.4-8.2)
--- NOTE | 2023-06-17 07:47 | NUR ---
SHIFT SUMMARY: PT RESTED COMFORTABLY IN BED THROUGH THE NIGHT. SHE REMAINED RESTRAINED SECONDARY TO RISK OF SELF EXTUBATION. SHE RESPONDED TO PAINFUL STIMULATION, BUT WAS UNABLE TO BE REDIRECTED. PT SAFETY WAS MAINTAINED. PT'S STAYED ON THE SAME VENT SETTINGS THROUGHT THE NIGHT. VSS. NO SIGNIFICATN ISSUES.
--- NOTE | 2023-06-17 11:05 | NUR ---
EXTUBATION. PT EXTUBATED AT 1050, RESTRAINTS DISCONTINUED. ON 02 VIA NC AT 3 L/MIN, 02 SATS 100% ATT.
--- NOTE | 2023-06-17 18:36 | NUR ---
Shift summary. Pt resting in bed, on RA, sats >95%. Pt extubated this am with good results, see note. Healy catheter removed, pt able to void using bedpan. Pt tolerating PO intake, diet resumed. See chart for further details. Will report off to nightshift RN.
--- NOTE | 2023-06-17 19:20 | NUR ---
ASSUMPTION OF CARE RECEIVED INTO CARE. BEDSIDE REPORT GIVEN BY DAY RN. PT AWAKE LYING IN BED WATCHING TV. BECAME TEARY EYED AND WORRIED THAT NO ONE WAS WATCHING HER PETS. VERBAL SUPPORT PROVIDED. IN SR/ST, VSS. NO VOICED CONCERNS AT THIS TIME. CALL UREÑA IN REACH.
[2023-06-18] VITALS (42 sets, daily range): BP systolic 91–197; BP diastolic 76–136
--- NOTE | 2023-06-18 06:02 | NUR ---
SHIFT SUMMARY ALERT AND OREINTED X4 BUT CONFUSED AT TIMES AT BEGINNING OF THE SHIFT, WOULD PULL AND PICK AT LINES AND TUBES. THROUGHOUT THE NIGHT STARTED TO CLEAR AND USE CALL UREÑA WHEN NEEDING ASSISTANCE. CONTINUES TO HAVE A SORE THROAT. TYLENOL GIVEN PER EMAR. IN SR/ST HR 90-110'S, HYPERTENSIVE SBP 150-190S. SPO2>96% ON RA. SNACKS AND FLUIDS GIVEN. USING BEDPAN TO VOID, GOOD OUTPUT. REMAINS AWAKE LYING IN BED AT THIS TIME, CALL UREÑA IN REACH. NO VOICED CONCERS.
[2023-06-18 10:05] LABS: BASOPHILS ABSOLUTE AUTO 0.02 K/mm3 (0.00-0.23); BASOPHILS PERCENT AUTO 0 % (0-2); EOSINOPHILS PERCENT AUTO 0 % (0-6); Hematocrit 29.5 % (33.0-51.0); Hemoglobin 9.7 g/dL (11.5-16.0); IMMATURE GRAN PERCENT AUTO 1 % (0-1); LYMPHOCYTES ABSOLUTE AUTO 0.86 K/mm3 (0.84-5.20); LYMPHOCYTES PERCENT AUTO 7 % (21-46); MONOCYTES ABSOLUTE AUTO 0.62 K/mm3 (0.16-1.47); MONOCYTES PERCENT AUTO 5 % (4-13); Mean Corpuscular HGB 29.1 pg (26.0-34.0); Mean Corpuscular HGB Conc 32.9 g/dL (31.5-36.5); Mean Corpuscular Volume 89 fL (80-100); Mean Platelet Volume 10.8 fL (9.1-12.4); NEUTROPHILS ABSOLUTE AUTO 11.35 K/mm3 (1.96-9.15); NEUTROPHILS PERCENT AUTO 88 % (41-73); Platelet Count 487 K/mm3 (150-400); RDW Coefficient Variation 14.8 % (11.7-14.2); RDW Standard Deviation 47.3 fL (35.1-46.3); Red Blood Cell Count 3.33 M/mm3 (3.80-5.20); White Blood Cell Count 12.95 K/mm3 (4.00-11.30)
[2023-06-18 10:24] LABS: Bun/Creatinine Ratio 12.9 (12.0-20.0); Calcium, Blood 7.9 mg/dL (8.5-10.1); Creatinine, Blood 3.49 mg/dL (0.40-1.00); Potassium, Blood 3.6 mmol/L (3.5-5.5)
--- NOTE | 2023-06-18 10:32 | NUR ---
Pt. is awake and welcomes my visit while she begins to cry. Listen with empathy and a caring presence. Pt. remembers this sustainable agriculture faculty from a previous visit. Facilitate a life review and Pt. verbalizes the loss of being a part of family events. Pt. also verbalized that she has been living at the [place] [id number]. Pastoral support and encouragement is given. Pt. was interested in information regarding celebrate recovery. Pt. grabbed my hand as we prayed. Pt. verbalized gratitude for the spiritual care visit. Provide Pt. with information on [facility].
--- NOTE | 2023-06-18 12:17 | NUR ---
Pt. contacted this screening nurse with a request for some coloring pencils. After conferring with the ED staff that it was permissable I brought her a C[employer]an book with colored pencils. Pt. verbalized gratitude for the spiritual care support.
[2023-06-18 15:22] LABS: PCO2 Venous 36.2 mmHg (38-42)
[2023-06-18 15:23] LABS: Base Excess Venous 5.4 mmol/L; Bicarbonate Venous 29.1 mmol/L (24.0-30.0)
[2023-06-18 15:44] LABS: Bun/Creatinine Ratio 9.9 (12.0-20.0); Calcium, Blood 8.5 mg/dL (8.5-10.1); Creatinine, Blood 2.13 mg/dL (0.40-1.00); Potassium, Blood 3.8 mmol/L (3.5-5.5); Prolactin 157.6 ng/mL
--- NOTE | 2023-06-18 18:12 | NUR ---
Summary. Pt started shift alert and oriented, on RA. Dialysis completed around 1440, pt sleeping afterwards. At approximately 1450 this RN entered room to find pt tachypnic and tachycardic with stridorous breath sounds, pt eyes open, pupils dialated and not reactive to light, pt not responding to verbal or painful stimuli. RT and physician called to bedside, ativan given with poor effect. After short bedside evaluation, decision was made to intubate pt, see physician note. Propofol started at 40 mcg/kg/min per Dr. Polanco. OG tube placed, ETT and OG tube placement verified by Xray. Pt also taken for head CT. Currently pt sedated on propofol at 40 mcg/kg/min, ventilated via ETT. Vent settings: AC/VC 14/440/5/30%. Soft wrist restraints in place. EEG ordered, tech at bedside, RN to assist w/sedation wean. See chart for further details. Will report off to nightshift RN.
--- NOTE | 2023-06-18 22:00 | NUR ---
ASSUMED CARE AT 1899 EEG COMPLETED RIGHT AFTER SHIFT CHANGE. PROPOFOL TURNED TO SB AT 1914 AND EEG STARTED AT ALMOST 1944, DURING EEG SHE WAS NOT RESPONSIVE TO PAINFUL STIMULI; AT 2019 SHE STARTED TO COUGH AGAINST THE VENT, OPENING EYES TO MINIMAL VERBAL STIMULATION; SHE DID NOT ANSWER Y/N QUESTIONS AND SHE WAS ABLE TO SQUEEZE RT HAND BUT NOT THE LEFT; RASS CLIMBED TO +2 AND PROPOFOL RESTARTED AT 15MCG/KG/MIN AND TITRATED UP TO 20MCG/KG/MIN ALONG WITH FENTANYL PUSH AND ATIVAN PUSH. VENT SETTINGS AC/VC 14/440/5/30%. AFEBRILE. HR 100-120'S. SBP 110-160'S. OG IN PLACE AND CLAMPED. MEHTA PLACED FOR CRITICAL I&O'S. SECOND POWERGLIDE PLACED TO RUE. SEE SHIFT ASSESSMENT FOR FULL ASSESSMENT.
[2023-06-18 22:58] LABS: Source, Urine Foley catheter
[2023-06-18 23:07] LABS: Bilirubin, Urine Neg (Neg); Blood, Urine 1+ (Neg); Glucose Qualitative, Urine 4+ (Neg); Ketones, Urine 1+ (Neg); Leukocyte Esterase, Urine Neg (Neg); Nitrite, Urine Neg (Neg); Protein, Urine 4+ (Neg); Specific Gravity, Urine 1.015 (1.003-1.022); Urobilinogen, Urine NORM (Normal)
[2023-06-18 23:58] LABS: Appearance, Urine Hazy (Clear); Color, Urine Yellow (P-Yellow)
[2023-06-19] VITALS (60 sets, daily range): BP systolic 116–200; BP diastolic 82–151
[2023-06-19 00:04] LABS: Bacteria Mod /hpf; Granular Casts 0-2 /lpf (0); Hyaline Casts 0-2 /lpf (0-2); Squamous Epithelial Cells Few /hpf (Few); White Blood Cells, Urine 0-2 /hpf (0-5)
[2023-06-19 04:01] LABS: BASOPHILS ABSOLUTE AUTO 0.01 K/mm3 (0.00-0.23); BASOPHILS PERCENT AUTO 0 % (0-2); EOSINOPHILS PERCENT AUTO 0 % (0-6); Hematocrit 27.1 % (33.0-51.0); Hemoglobin 8.9 g/dL (11.5-16.0); IMMATURE GRAN ABSOLUTE AUTO 0.05 K/mm3 (0.00-0.10); IMMATURE GRAN PERCENT AUTO 1 % (0-1); LYMPHOCYTES ABSOLUTE AUTO 1.44 K/mm3 (0.84-5.20); LYMPHOCYTES PERCENT AUTO 14 % (21-46); MONOCYTES ABSOLUTE AUTO 0.65 K/mm3 (0.16-1.47); MONOCYTES PERCENT AUTO 6 % (4-13); Mean Corpuscular HGB Conc 32.8 g/dL (31.5-36.5); Mean Corpuscular Volume 88 fL (80-100); Mean Platelet Volume 10.1 fL (9.1-12.4); NEUTROPHILS ABSOLUTE AUTO 8.46 K/mm3 (1.96-9.15); NEUTROPHILS PERCENT AUTO 80 % (41-73); Platelet Count 386 K/mm3 (150-400); RDW Standard Deviation 47.8 fL (35.1-46.3); Red Blood Cell Count 3.07 M/mm3 (3.80-5.20); White Blood Cell Count 10.61 K/mm3 (4.00-11.30)
[2023-06-19 04:24] LABS: Magnesium, Blood 1.8 mg/dL (1.6-2.4)
[2023-06-19 04:25] LABS: Albumin, Blood 1.5 g/dL (3.4-5.0); Anion Gap 5 mmol/L (6-16); Blood Urea Nitrogen 32 mg/dL (8-24); Bun/Creatinine Ratio 11.3 (12.0-20.0); CO2, Blood 29 mmol/L (21-32); Calcium, Blood 7.9 mg/dL (8.5-10.1); Chloride, Blood 105 mmol/L (98-108); Creatinine, Blood 2.83 mg/dL (0.40-1.00); Glomerular Filtration Rate 20 (60-); Glucose, Blood 142 mg/dL (70-99); Phosphorus, Blood 3.5 mg/dL (2.5-4.9); Potassium, Blood 3.8 mmol/L (3.5-5.5); Sodium, Blood 139 mmol/L (136-145)
--- NOTE | 2023-06-19 06:23 | NUR ---
END OF SHIFT SUMMARY NO ACUTE EVENTS SINCE EEG. SHE CONT TO BE SEDATED WITH PROPOFOL INFUSING AT 20MCG/KG/MIN TO KEEP RASS AROUND -2; SHE WILL BECOME AGITATED AND COUGH AGAINST VENT AND RASS GOES UP TO +2, PRN FENTANYL AND ATIVAN PUSHES HELPED BRING RASS BACK DOWN TO -2; MOVING EXTREMITIES MORE BUT NOT FOLLOWING DIRECTIONS OR ANSWERING Y/N QUESTIONS; PUPILS SLUGGISH BUT REACTIVE. MAX TEMP 100.2; FAN PLACED ON PT. VENT SETTINGS AC/VC 14/440/5/30%. HR 80-110. SBP 110-170'S. OG CLAMPED. MEHTA IN PLACE AND DRAINING TO GRAVITY. BILATERAL POWERGLIDES PATENT. WILL REPORT TO AM RN WHEN AVAILABLE.
--- NOTE | 2023-06-19 10:30 | NUR ---
IMAGING PT TAKEN TO CT AT THIS TIME.
--- NOTE | 2023-06-19 14:47 | NUR ---
Attempts to transfer pt: Calls made by this RN to every higher level of care hospital in the state, attempting to try and transfer patient for ENT surgery r/t possible neck abscess. Pt was placed on wait list at [facility] and [facility], neither with an ETA able to be given for when a bed might become available. Will continue to follow up on bed availability and make attempts at transfer to other facilities. Call also placed to pt's [facility] welfare case worker to see if her insurance would cover transfer to an out of state facility. Awaiting return phone call from welfare case worker.
--- NOTE | 2023-06-19 17:30 | NUR ---
TRANSFER REPORT GIVEN TO EMS. THIS RN AND EMS CREW TRANSPORTING PT TO [facility]. 18:30 2MG ATIVAN GIVEN
== END 2023-06-19 17:15 | disposition short-term general hospital (02) | DRG 208 ==
LOC: ER 20:05 → ICUE 06-15 01:27 → MEDS 06-15 01:27 → ICUE 06-15 07:50
PROVIDERS: Emergency Medicine; Hospitalist; Internal Medicine Critical Care Medicine; Internal Medicine Gastroenterology; Student in an Organized Health Care Education/Training Program; ADMIT Student in an Organized Health Care Education/Training Program
PROC: 5A1945Z Respiratory Ventilation, 24-96 Consecutive Hours (ICD-10-PCS; 2023-06-15)
PROC: 0BH17EZ Insertion of Endotracheal Airway into Trachea, Via Natural or Artificial Opening (ICD-10-PCS; 2023-06-15)
PROC: 0DH67UZ Insertion of Feeding Device into Stomach, Via Natural or Artificial Opening (ICD-10-PCS; 2023-06-16)
PROC: 0DJ08ZZ Inspection of Upper Intestinal Tract, Via Natural or Artificial Opening Endoscopic (ICD-10-PCS; principal; 2023-06-16 16:45)
PROC: 0CJS8ZZ Inspection of Larynx, Via Natural or Artificial Opening Endoscopic (ICD-10-PCS; 2023-06-17)
PROC: 5A1D70Z Performance of Urinary Filtration, Intermittent, Less than 6 Hours Per Day (ICD-10-PCS; 2023-06-18)
DX: J96.01 Acute respiratory failure with hypoxia (principal); N18.6 End stage renal disease; K22.11 Ulcer of esophagus with bleeding; J44.1 Chronic obstructive pulmonary disease with (acute) exacerbation; I12.0 Hypertensive chronic kidney disease with stage 5 chronic kidney disease or end stage renal disease; I16.9 Hypertensive crisis, unspecified; L02.11 Cutaneous abscess of neck; D63.1 Anemia in chronic kidney disease; K25.9 Gastric ulcer, unspecified as acute or chronic, without hemorrhage or perforation; J38.4 Edema of larynx; J02.9 Acute pharyngitis, unspecified; J98.2 Interstitial emphysema; J38.02 Paralysis of vocal cords and larynx, bilateral; E10.22 Type 1 diabetes mellitus with diabetic chronic kidney disease; E10.40 Type 1 diabetes mellitus with diabetic neuropathy, unspecified; K21.9 Gastro-esophageal reflux disease without esophagitis; F41.8 Other specified anxiety disorders; B95.4 Other streptococcus as the cause of diseases classified elsewhere; Z90.49 Acquired absence of other specified parts of digestive tract; Z98.890 Other specified postprocedural states; Z90.710 Acquired absence of both cervix and uterus; Z99.2 Dependence on renal dialysis; Z86.14 Personal history of Methicillin resistant Staphylococcus aureus infection; Z11.52 Encounter for screening for COVID-19; Z89.512 Acquired absence of left leg below knee; Z91.148 Patient's other noncompliance with medication regimen for other reason; Z89.421 Acquired absence of other right toe(s); Z79.51 Long term (current) use of inhaled steroids; Z79.899 Other long term (current) drug therapy; Z79.4 Long term (current) use of insulin; Z88.5 Allergy status to narcotic agent; Z88.1 Allergy status to other antibiotic agents; Z91.158 Patient's noncompliance with renal dialysis for other reason; D64.9 Anemia, unspecified; E10.65 Type 1 diabetes mellitus with hyperglycemia; R56.9 Unspecified convulsions; F15.10 Other stimulant abuse, uncomplicated; Z91.199 Patient's noncompliance with other medical treatment and regimen due to unspecified reason
CPT/HCPCS: 0241U; 31500; 31720; 36415; 51702; 70450; 70491; 71045; 71260; 80048; 80053; 80069; 81001; 82803; 82947; 83540; 83550; 83735; 84100; 84146; 84484; 85025; 87070; 87086; 87147; 87205; 94002; 94003; 94640; 94644; 94660; 94664; 94760; 94762; 95819; 96365; 96366; 96374; 96375; 96375-59; 96376; 99285-25; A9270; C1751; C9113; G0378; J0171; J0330; J0360; J1430; J1644; J1790; J1815; J1953; J2060; J2250; J2405; J2543; J2704; J2765; J2930; J3010; J3370; J3475; J7030; J7050; J7512; Q0177; Q5106; Q9967

== ENCOUNTER → 2024-05-04 | Outpatient (CLI) | payer OTHER ==
[2024-05-04 12:59] LABS: BASOPHILS ABSOLUTE AUTO 0.12 K/mm3 (0.00-0.23); BASOPHILS PERCENT AUTO 2 % (0-2); EOSINOPHILS ABSOLUTE AUTO 0.12 K/mm3 (0.00-0.68); EOSINOPHILS PERCENT AUTO 2 % (0-6); Hemoglobin 12.4 g/dL (11.5-16.0); IMMATURE GRAN ABSOLUTE AUTO 0.02 K/mm3 (0.00-0.10); IMMATURE GRAN PERCENT AUTO 0 % (0-1); LYMPHOCYTES ABSOLUTE AUTO 2.75 K/mm3 (0.84-5.20); LYMPHOCYTES PERCENT AUTO 39 % (21-46); MONOCYTES ABSOLUTE AUTO 0.54 K/mm3 (0.16-1.47); MONOCYTES PERCENT AUTO 8 % (4-13); Mean Corpuscular HGB 31.2 pg (26.0-34.0); Mean Corpuscular HGB Conc 34.4 g/dL (31.5-36.5); Mean Corpuscular Volume 91 fL (80-100); Mean Platelet Volume 12.2 fL (9.1-12.4); NEUTROPHILS ABSOLUTE AUTO 3.48 K/mm3 (1.96-9.15); NEUTROPHILS PERCENT AUTO 50 % (41-73); Platelet Count 209 K/mm3 (150-400); RDW Coefficient Variation 12.9 % (11.7-14.2); RDW Standard Deviation 42.6 fL (35.1-46.3); Red Blood Cell Count 3.97 M/mm3 (3.80-5.20); White Blood Cell Count 7.03 K/mm3 (4.00-11.30)
[2024-05-04 13:35] LABS: Albumin, Blood 3.6 g/dL (3.4-5.0); Bilirubin, Total 0.9 mg/dL (0.1-1.0); Bun/Creatinine Ratio 7.9 (12.0-20.0); Calcium, Blood 9.4 mg/dL (8.5-10.1); Creatinine, Blood 9.37 mg/dL (0.40-1.00); Globulin, Blood 3.7 g/dL (2.2-4.0); Potassium, Blood 5.6 mmol/L (3.5-5.5); Total Protein, Blood 7.3 g/dL (6.4-8.2)
== END | disposition home or self-care (01) ==
LOC: LAB SHORT 12:35 → LAB 12:35
PROVIDERS: Nurse Practitioner Family
DX: R56.9 Unspecified convulsions (principal)
CPT/HCPCS: 80053; 85025

== ENCOUNTER 2024-06-10 13:30 | Inpatient (IN) | payer OTHER ==
[~2024-06-10] VITALS: Ht 172.7 cm; Wt 65.0 kg
[2024-06-10] MEDS ORDERED: NS 250 ML IV SCH (14:15)
[2024-06-10] MEDS ORDERED: Morphine Sulfate 4 MG/1 ML Injection IV ONE (14:20)
[2024-06-10] MEDS ORDERED: Mag Sulfate 1 GM/D5% 100ML 100 ML IV ONE (14:20)
[2024-06-10 14:40] LABS: Base Excess Venous 1.4 mmol/L; Bicarbonate Venous 25.7 mmol/L (24.0-30.0); PCO2 Venous 37.8 mmHg (38-42); pH Blood Venous 7.44 (7.34-7.37)
[2024-06-10] MEDS ORDERED: Morphine Sulfate 4 MG/1 ML Injection IM ONE ×2 (15:00→17:20)
[2024-06-10] MEDS ORDERED: LORazepam 2 MG/ML 1ML Injection IM ONE ×3 (15:00→21:45)
[2024-06-10 15:28] LABS: Albumin, Blood 4.2 g/dL (3.4-5.0); Bilirubin, Total 1.2 mg/dL (0.1-1.0); Calcium, Blood 10.1 mg/dL (8.5-10.1); Creatinine, Blood 4.46 mg/dL (0.40-1.00); Free Thyroxine 1.24 ng/dL (0.70-1.60); Globulin, Blood 4.3 g/dL (2.2-4.0); Magnesium, Blood 2.3 mg/dL (1.6-2.4); Potassium, Blood 4.5 mmol/L (3.5-5.5); Thyroid Stimulating Hormone 2.02 uIU/mL (0.360-4.800); Total Protein, Blood 8.5 g/dL (6.4-8.2)
[2024-06-10 15:31] LABS: BASOPHILS PERCENT AUTO 1 % (0-2); EOSINOPHILS ABSOLUTE AUTO 0.19 K/mm3 (0.00-0.68); EOSINOPHILS PERCENT AUTO 3 % (0-6); Hematocrit 44.8 % (33.0-51.0); Hemoglobin 14.9 g/dL (11.5-16.0); IMMATURE GRAN ABSOLUTE AUTO 0.04 K/mm3 (0.00-0.10); IMMATURE GRAN PERCENT AUTO 1 % (0-1); LYMPHOCYTES ABSOLUTE AUTO 1.91 K/mm3 (0.84-5.20); LYMPHOCYTES PERCENT AUTO 26 % (21-46); MONOCYTES ABSOLUTE AUTO 0.51 K/mm3 (0.16-1.47); MONOCYTES PERCENT AUTO 7 % (4-13); Mean Corpuscular HGB 30.2 pg (26.0-34.0); Mean Corpuscular HGB Conc 33.3 g/dL (31.5-36.5); Mean Corpuscular Volume 91 fL (80-100); NEUTROPHILS ABSOLUTE AUTO 4.52 K/mm3 (1.96-9.15); NEUTROPHILS PERCENT AUTO 62 % (41-73); RDW Coefficient Variation 14.5 % (11.7-14.2); RDW Standard Deviation 48.4 fL (35.1-46.3); Red Blood Cell Count 4.93 M/mm3 (3.80-5.20); White Blood Cell Count 7.27 K/mm3 (4.00-11.30)
[2024-06-10] MEDS ORDERED: Metoclopramide HCl 10 MG Tab PO ONE (16:25)
[2024-06-10] MEDS ORDERED: diphenhydrAMINE HCl 12.5 MG/5 ML 5MLUDC (Alcohol/Dye Free) PO ONE (16:25)
[2024-06-10] MEDS ORDERED: Acetaminophen 500 MG Tab PO ONE (16:45)
[2024-06-10] MEDS ORDERED: Metoclopramide HCl 5MG / ML 2ML Vial IM ONE (17:20)
[2024-06-10] MEDS ORDERED: FLU VACC TS2024-25(6MOS UP)/PF 45 MCG/0.5 ML SYRINGE IM ONE (20:30)
[2024-06-10] MEDS ORDERED: LORazepam 2 MG/ML 1ML Injection IV PRN (20:30)
[2024-06-10] MEDS ORDERED: Albuterol 2.5 MG/3 ML VIAL INH PRN (20:35)
[2024-06-10] MEDS ORDERED: FentaNYL Citrate 50 MCG/ML 2 ML Injection IV PRN (20:35)
[2024-06-10] MEDS ORDERED: Labetalol HCL 5 MG/ML 4ML Injection (Single Dose) IV PRN (20:35)
[2024-06-10] MEDS ORDERED: Mag Sulfate 1 GM/D5% 100ML 100 ML IV STA (20:41)
[2024-06-10] MEDS ORDERED: LevETIRAcetam 500 MG Tab PO SCH (21:00)
[2024-06-10] MEDS ORDERED: HydrALAZINE HCl 50 MG Tab PO SCH (21:00)
[2024-06-10] MEDS ORDERED: AmLODIPine Besylate 5 MG Tab PO SCH (21:00)
[2024-06-10] MEDS ORDERED: levETIRAcetam 500 MG in NS 100 ML IV ONE (23:10)
[2024-06-11] VITALS (13 sets, daily range): BP systolic 105–196; BP diastolic 56–112
[2024-06-11] MEDS ORDERED: Insulin Human Lispro 100 Units/ML 3ML Syringe SC SCH
[2024-06-11] MEDS ORDERED: Labetalol HCL 5 MG/ML 4ML Injection (Single Dose) IV PRN (07:25)
[2024-06-11] MEDS ORDERED: Metoclopramide HCl 5MG / ML 2ML Vial IV PRN (07:25)
[2024-06-11] MEDS ORDERED: Propranolol HCL 20 MG TAB PO SCH (07:30)
[2024-06-11] MEDS ORDERED: buprenorphine HCL 2 MG TAB.SUBL SL SCH (09:00)
[2024-06-11] MEDS ORDERED: AmLODIPine Besylate 5 MG Tab PO SCH (09:00)
[2024-06-11] MEDS ORDERED: Insulin Glargine-Yfgn 100 Unit/mL 3 ML SYR SC SCH (09:00)
[2024-06-11] MEDS ORDERED: Losartan Potassium 25 MG Tab PO SCH (09:00)
[2024-06-11] MEDS ORDERED: Heparin Sodium 5000 Units/ML 1ML MDV SC SCH (09:00)
[2024-06-11 09:02] LABS: Albumin, Blood 3.8 g/dL (3.4-5.0); BASOPHILS ABSOLUTE AUTO 0.11 K/mm3 (0.00-0.23); BASOPHILS PERCENT AUTO 1 % (0-2); Bilirubin, Total 1.1 mg/dL (0.1-1.0); Bun/Creatinine Ratio 5.1 (12.0-20.0); Calcium, Blood 9.3 mg/dL (8.5-10.1); Creatinine, Blood 5.92 mg/dL (0.40-1.00); EOSINOPHILS PERCENT AUTO 0 % (0-6); Globulin, Blood 3.9 g/dL (2.2-4.0); Hematocrit 42.2 % (33.0-51.0); Hemoglobin 13.4 g/dL (11.5-16.0); IMMATURE GRAN ABSOLUTE AUTO 0.04 K/mm3 (0.00-0.10); IMMATURE GRAN PERCENT AUTO 0 % (0-1); LYMPHOCYTES ABSOLUTE AUTO 1.82 K/mm3 (0.84-5.20); LYMPHOCYTES PERCENT AUTO 19 % (21-46); MONOCYTES PERCENT AUTO 8 % (4-13); Magnesium, Blood 2.3 mg/dL (1.6-2.4); Mean Corpuscular HGB 30.2 pg (26.0-34.0); Mean Corpuscular HGB Conc 31.8 g/dL (31.5-36.5); Mean Corpuscular Volume 95 fL (80-100); Mean Platelet Volume 12.8 fL (9.1-12.4); NEUTROPHILS ABSOLUTE AUTO 7.06 K/mm3 (1.96-9.15); NEUTROPHILS PERCENT AUTO 72 % (41-73); Platelet Count 243 K/mm3 (150-400); Potassium, Blood 4.7 mmol/L (3.5-5.5); RDW Coefficient Variation 14.7 % (11.7-14.2); RDW Standard Deviation 51.2 fL (35.1-46.3); Red Blood Cell Count 4.44 M/mm3 (3.80-5.20); Total Protein, Blood 7.7 g/dL (6.4-8.2); White Blood Cell Count 9.83 K/mm3 (4.00-11.30)
[2024-06-11] MEDS ORDERED: Ondansetron HCl 2 MG / ML 2ML Vial IV ONE (09:45)
[2024-06-11] MEDS ORDERED: buprenorphine HCL 8 MG TAB.SUBL SL ONE (12:15)
[2024-06-11] MEDS ORDERED: buprenorphine HCL 2 MG TAB.SUBL SL ONE (12:20)
[2024-06-11 13:13] LABS: U Amphetamine Screen Not Detected; U Barbituate Screen Not Detected; U Benzodiazapine Screen DETECTED; U Buprenorphine Screen Not Detected; U Cannabinoids Screen DETECTED; U Cocaine Screen Not Detected; U Methadone Screen Not Detected; U Methamphetamine Screen Not Detected; U Opiates Screen DETECTED; U Oxycodone Screen Not Detected; U Phencyclidine Screen Not Detected
[2024-06-11] MEDS ORDERED: LORazepam 2 MG/ML 1ML Injection IV PRN (13:25)
[2024-06-11] MEDS ORDERED: Insulin Glargine-Yfgn 100 Unit/mL 3 ML SYR SC ONE (14:00)
[2024-06-11] MEDS ORDERED: MetroNIDAZOLE 500MG/NS 100 ml 100 ML IV SCH (16:00)
[2024-06-11] MEDS ORDERED: Doxycycline Hyclate 100 MG in Dextrose 5% 250 ML IV SCH (16:00)
[2024-06-11] MEDS ORDERED: HYDROmorphone HCl/Pf 1MG SYR IV PRN (16:10)
[2024-06-11] MEDS ORDERED: NS 500 ML IV SCH (17:00)
--- NOTE | 2024-06-11 18:11 | NUR ---
SHIFT SUMMARY PT IS A/OX4. INTRACTABLE ABDOMINAL PAIN. PT ADDMITED FROM THE ED THIS AFTERNOON. PT MEDICATED WITH DILUADID X1 SINCE ADMIT. TELE RUNNING NORMAL SINUS RYTHYM IN THE 80-90'S. BLOOD SUGARS ELEVATED, IN THE 200-300'S. Q6 BLOOD SUGARS D/T PT NOT BEING ABLE TO TOLERTATE PO INTAKE D/T PAIN AND NAUSEA/VOMITTNG. PT VOMITTED X1 OF A SMALL AMOUNT SINCE ADMIT. HOWEVER PT CURRENTLY TOLERATING EATTING DINNER. DR ROBERTS CONSULTED THIS AFTERNOON.
[2024-06-11] MEDS ORDERED: Nortriptyline HCl 10 MG Cap PO SCH (21:00)
[2024-06-12] VITALS (31 sets, daily range): BP systolic 96–233; BP diastolic 61–220
--- NOTE | 2024-06-12 01:02 | NUR ---
DR. PENALOZA CONTACTED AND NOTIFIED OF PATIENTS BLOOD SUGAR OF 360. NO NEW ORDERS OR CHANGES AT THIS TIME.
--- NOTE | 2024-06-12 07:32 | NUR ---
SHIFT SUMMARY. PATIENT IS ALERT AND ORIENTED X3-4. PATIENT CALLS AND IS ABLE TO MAKE HER NEEDS KNWON. PATIENT C/O PAIN X3-MEDICATED PER ORDERS. PATIENT HAS HAD NAUSEA TONIGHT-MEDICATED PER ORDERS WITH IMPROVEMENT TO NAUSEA. PATIENT HAS HX OF ANXIETY AND BECOMES ANXIOUS AT TIMES-MEDICATED FOR ANXIETY X1 PER ORDERS[address] ROBERTS IN THE MORNING TO SEE PATIENT-WILL HOLD OFF ON DIALYSIS TODAY. DR. ROBERTS IN ROOM-PATIENT TRANSFERED [facility] WHERE SHE HAS A SCAB-PART OF SCAB CAME OFF AND PATIENTS FOOT BLED-BANDAID APPLIED-ANJALI RN NOTIFIED, PICTURE IN CHART. SAID TO TALK TO ANJALI DOCTOR AND SEE IF PODIATRY SHOULD BE INVOLVED IN SCAB ON FOOT. EKG COMPLETED THIS MORNING-06/12/24 AND IS IN FRONT OF CHART. BED IS LOCKED IN THE LOWEST POSITION WITH CALL LIGHT IN REACH. REPORT GIVEN TO ANJALI KINGSLEY.
[2024-06-12] MEDS ORDERED: AmLODIPine Besylate 5 MG Tab PO SCH (09:00)
[2024-06-12] MEDS ORDERED: Losartan Potassium 50 MG Tab PO SCH (09:00)
[2024-06-12] MEDS ORDERED: NiCARdipine HCL 25 MG/10 ML (2.5MG/ML) IV SCH ×2 (09:45)
[2024-06-12] MEDS ORDERED: NiCARdipine HCL 50 MG in NS 250 ML IV SCH (09:55)
[2024-06-12] MEDS ORDERED: NS 500 ML IV SCH (10:00)
[2024-06-12] MEDS ORDERED: Diazepam 5 MG / ML 2ML SYR IV PRN (12:35)
--- NOTE | 2024-06-12 14:36 | NUR ---
AT APPROX 1300, THIS NURSE WHO WAS AT NURSE STATION OUTSIDE PT ROOM HEARD PT YELL INTO HER PHONE THAT SHE WAS "GOING TO THROW" HERSEL "ONTO THE FLOOR!" CHARGE NURSE NOTIFIED. PATIENT THEN YELLED TO THIS NURSE THAT SHE WANTS GO SPEAK TO A CHARGE NURSE.
--- NOTE | 2024-06-12 17:02 | NUR ---
SHIFT SUMMARY PT TRANSFERED TO ICU14 ATT 1700. REPORT GIVEN TO ALEX KINGSLEY. PT REMAINS NAUSEOUS AND VOMITTING THROUGHOUT THE DAY. TOLERATING LITTLE PO INTAKE OF CLEAR LIQUIDS. ON . RUNNING NORMAL SINUS RYTHYM IN THE 80'S. PT EXTREMELY ANXIOUS THROUGHOUT THIS SHIFT, MEDICATED PER JUL. PT REPORTS PAIN TO THE RIGHT AC WITH BRUISING NOTED. PT REPORTS NO LONGER FEELING PAIN IN HER ABDOMEN. PT MEDICATED FOR PAIN PER JUL. BP REMAINS ELEVATED. MEDICATED WITH 10MG LABETALOL PER JUL WITH SOME IMPROVEMENT SYSTOLICALLY, DIASTLIC REMAINS IN THE 100'S. PT VISITED BY HER MOTHER THIS EVENING.
[2024-06-12] MEDS ORDERED: LORazepam 2 MG/ML 1ML Injection IV PRN (17:05)
[2024-06-12] MEDS ORDERED: buprenorphine HCL 2 MG TAB.SUBL SL SCH (21:00)
[2024-06-12] MEDS ORDERED: TraZODone HCl 100 MG Tab PO SCH (21:00)
--- NOTE | 2024-06-12 21:56 | NUR ---
ASSUMPTION OF CARE: ASSUMED CARE OF PT AT 1910. PT ALERT AND ORIENTED ALTHOUGH IMPULSIVE AND WILL TRY TO GET OUT OF BED WITHOUT USING CALL LIGHT. EDUCATED ON USING CALL LIGHT FOR ASSISTANCE. PT VERY ANXIOUS AND TEARFUL AND WANTING TO LEAVE. PT ON RA WITH SPO2 MID TO HIGH 90'S, DENIES SOB. CHANGE AGENT IN PLACE, SR WITH HR 80'S. SBP 160-210, INFUSING NICARDIPINE AT 5 MG/HR. DENIES CP/PRESSURE. ABLE TO VOID INTO BSC WITH ASSIST. TOLERATING PO INTAKE BUT STATES SHE FEELS NAUSEOUS AND HAS A SMALL AMOUNT OF EMESIS AT TIMES. PIV TO RFA INFUSING. POWERGLIDE TO BERNARDINO, UNABLE TO FLUSH OR DRAW BACK, REMOVED THIS SHIFT. PT UNABLE TO MOVE LEFT ARM AND HAS PAIN FROM PAST CVA. L BKA. ABLE TO TRANSFER WITH MODERATE ASSIST. MOVES IN BED WITH MINIMAL ASSIST. PT MOM AT THE BEDSIDE. BED LOW AND LOCKED, CALL LIGHT IN REACH.
[2024-06-13] VITALS (7 sets, daily range): BP systolic 136–163; BP diastolic 80–118
[2024-06-13] MEDS ORDERED: DiphenhydrAMINE HCl 50 MG Cap PO ONE (00:40)
--- NOTE | 2024-06-13 01:45 | NUR ---
AMA: PT STATED SHE WANTED TO LEAVE AND THERE WAS NOTHING THAT ANYONE COULD SAY TO MAKE HER STAY. DR. PENALOZA AT THE BEDSIDE, PT STILL WANTING TO LEAVE. INFORMED PT OF THE RISKS OF LEAVING AMA, STATED SHE "COULDN'T BE SO HATTIE IF THAT HAPPENED". PT STATES SHE WAS LEAVING BECAUSE SHE HAS TOO MUCH ANXIETY FROM HER LAST STAY HERE. STATES IT WAS NOTHING TO DO WITH HER CARE. PT SIGNED AMA FORM, PLACED ON THE CHART. PIV TO RFA REMOVED BEFORE LEAVING, PT TAKEN BY WHEELCHAIR TO FRONT DOOR, ALL BELONGINGS SENT WITH PT. PT MOM GIVING PT A RIDE HOME.
== END 2024-06-13 01:40 | disposition left against medical advice (07) | DRG 391 ==
LOC: ER 13:30 → ERHOLD 13:31 → MEDS 13:31 → ERHOLD 13:31 → MEDS 06-11 13:01 → ICUE 06-12 16:53
PROVIDERS: Emergency Medicine; Nurse Practitioner Acute Care; ADMIT Internal Medicine
DX: K52.9 Noninfective gastroenteritis and colitis, unspecified (principal); N18.6 End stage renal disease; N25.81 Secondary hyperparathyroidism of renal origin; E87.1 Hypo-osmolality and hyponatremia; D63.1 Anemia in chronic kidney disease; E10.51 Type 1 diabetes mellitus with diabetic peripheral angiopathy without gangrene; I12.9 Hypertensive chronic kidney disease with stage 1 through stage 4 chronic kidney disease, or unspecified chronic kidney disease; J44.9 Chronic obstructive pulmonary disease, unspecified; Z99.2 Dependence on renal dialysis; G40.909 Epilepsy, unspecified, not intractable, without status epilepticus; Z91.199 Patient's noncompliance with other medical treatment and regimen due to unspecified reason; Z53.29 Procedure and treatment not carried out because of patient's decision for other reasons; K21.9 Gastro-esophageal reflux disease without esophagitis; F41.9 Anxiety disorder, unspecified; F32.9 Major depressive disorder, single episode, unspecified; R94.31 Abnormal electrocardiogram [ECG] [EKG]; E10.22 Type 1 diabetes mellitus with diabetic chronic kidney disease; I16.0 Hypertensive urgency; F15.10 Other stimulant abuse, uncomplicated; Z88.5 Allergy status to narcotic agent; Z88.8 Allergy status to other drugs, medicaments and biological substances; Z90.49 Acquired absence of other specified parts of digestive tract; Z89.421 Acquired absence of other right toe(s); Z89.512 Acquired absence of left leg below knee; Z79.4 Long term (current) use of insulin; Z79.899 Other long term (current) drug therapy; Z86.14 Personal history of Methicillin resistant Staphylococcus aureus infection; Z86.19 Personal history of other infectious and parasitic diseases; Z90.710 Acquired absence of both cervix and uterus; Z87.891 Personal history of nicotine dependence
CPT/HCPCS: 71045; 74018; 74176; 80053; 82803; 82947; 83735; 84439; 84443; 85025; 93005; 93010; 93971; 96365; 96372; 96375; 96376; 99285-25; A9270; G0378; J0571; J1171; J1644; J1815; J1953; J2060; J2270; J2405; J2765; J3010; J3360; J7040; J7050; J7060

== ENCOUNTER → 2024-09-01 | Outpatient (CLI) | payer OTHER | LOC: LAB 15:01 → LAB SHORT 15:01 | DX: S91.301A Unspecified open wound, right foot, initial encounter (principal) | CPT/HCPCS: 87070; 87075; 87077; 87186; 87205 ==

== ENCOUNTER → 2024-12-29 | Outpatient (CLI) | payer MEDICARE, OTHER | LOC: LAB SHORT 12:30 → LAB 12:30 | DX: R29.2 Abnormal reflex (principal) | CPT/HCPCS: 87070; 87077; 87147; 87186; 87205 ==